=== PATIENT | female | born 1950 | race Caucasian/White ===

== ENCOUNTER 2020-01-24 11:00 | Outpatient (CLI) | payer MEDICARE, SELFPAY ==
[2020-01-24 11:23] LABS: Basophils Absolute Auto 0.1 K/mm3 (0.0-0.1); Basophils Percent Auto 0.5 % (0.2-1.2); Eosinophils Absolute Auto 0.5 K/mm3 (0-0.3); Eosinophils Percent Auto 3.5 % (0-4.4); Hematocrit 47.1 % (37.0-47.0); Hemoglobin 15.6 g/dL (12.0-15.0); Immature Granulocyte Absolute 0.03 K/mm3 (0.00-0.031); Immature Granulocyte Percent A 0.2 % (0-0.5); Lymphocytes Absolute Auto 6.32 K/mm3 (0.9-3.2); Lymphocytes Percent Auto 47.4 % (18.3-44.2); Mean Corpuscular HGB Conc 33.1 g/dl (32-36); Mean Corpuscular Hemoglobin 32.7 pg (26-34); Mean Corpuscular Volume 98.7 fl (80-100); Mean Platelet Volume 11.3 fl (7.4-10.4); Monocytes Absolute Auto 0.7 K/mm3 (0.1-0.6); Monocytes Percent Auto 5.5 % (2.6-8.5); Neutrophils Absolute Auto 5.7 K/mm3 (1.3-6.7); Neutrophils Percent Auto 42.9 % (45.5-73.1); Platelet Count Result 228 k/mm3 (150-375); Red Blood Count 4.77 M/mm3 (4.2-5.4); Red Cell Distribution Width 14.4 % (11.5-14.5); White Blood Count 13.3 K/mm3 (4.5-10.0)
[2020-01-24 11:31] LABS: Hemoglobin A1C 6.4 % (<5.7)
[2020-01-24 11:36] LABS: Blood Urea Nitrogen 30 mg/dL (7-17); Calcium 9.4 mg/dL (8.4-10.2); Carbon Dioxide 24 mmol/L (22-30); Chloride 107 mmol/L (98-107); Estimated Glomerular Filt Rate > 60; Glucose 134 mg/dL (65-105); Potassium 5.1 mmol/L (3.4-5.0); Sodium 137 mmol/L (137-145)
[2020-01-24 11:47] LABS: Creatinine Urine 126.1 mg/dL
[2020-01-24 12:34] LABS: MALB Creatinine Ratio 252.3 mg/g (0-30); Microalbumin Urine Random 318.1 mg/L (0-16.7)
== END 2020-01-24 11:01 | disposition home or self-care (01) ==
PROVIDERS: PCP Internal Medicine; Visit Provider Nurse Practitioner
DX: E11.9 Type 2 diabetes mellitus without complications (principal)
CPT/HCPCS: 36415; 80048; 82043; 83036; 85025

== ENCOUNTER 2020-04-24 13:25 | Outpatient (CLI) | payer MEDICARE, SELFPAY ==
[2020-04-24 14:14] LABS: Basophils Percent Auto 0.4 % (0.2-1.2); Eosinophils Absolute Auto 0.4 K/mm3 (0-0.3); Eosinophils Percent Auto 3.5 % (0-4.4); Hematocrit 44.2 % (37.0-47.0); Hemoglobin 14.4 g/dL (12.0-15.0); Immature Granulocyte Absolute 0.04 K/mm3 (0.00-0.031); Immature Granulocyte Percent A 0.4 % (0-0.5); Lymphocytes Percent Auto 47.5 % (18.3-44.2); Mean Corpuscular HGB Conc 32.6 g/dl (32-36); Mean Corpuscular Hemoglobin 32.6 pg (26-34); Mean Platelet Volume 11.4 fl (7.4-10.4); Monocytes Absolute Auto 0.6 K/mm3 (0.1-0.6); Monocytes Percent Auto 5.4 % (2.6-8.5); Neutrophils Absolute Auto 4.6 K/mm3 (1.3-6.7); Neutrophils Percent Auto 42.8 % (45.5-73.1); Platelet Count Result 210 k/mm3 (150-375); Red Blood Count 4.42 M/mm3 (4.2-5.4); Red Cell Distribution Width 14.3 % (11.5-14.5); White Blood Count 10.7 K/mm3 (4.5-10.0)
[2020-04-24 14:24] LABS: Hemoglobin A1C 5.9 % (<5.7)
[2020-04-24 14:26] LABS: Anion Gap 5 mmol/L (8-16); Blood Urea Nitrogen 24 mg/dL (7-17); Calcium 9.5 mg/dL (8.4-10.2); Carbon Dioxide 24 mmol/L (22-30); Chloride 109 mmol/L (98-107); Estimated Glomerular Filt Rate > 60; Glucose 101 mg/dL (65-105); Potassium 4.3 mmol/L (3.4-5.0); Sodium 138 mmol/L (137-145)
== END 2020-04-24 13:26 | disposition home or self-care (01) ==
LOC: ANHLAB 13:29
PROVIDERS: PCP Internal Medicine; Visit Provider Nurse Practitioner
DX: E11.9 Type 2 diabetes mellitus without complications (principal)
CPT/HCPCS: 36415; 80048; 83036; 85025

== ENCOUNTER 2020-05-10 15:22 | Outpatient (CLI) | payer MEDICARE, SELFPAY ==
--- NOTE | ~2020-05-10 | CT_ITS ---
EXAMINATION: CT chest w con EXAM DATE: 05/10/2020 15:55 INDICATION: Solitary pulmonary nodule. TECHNIQUE: Spiral CT of the chest following intravenous injection of 75 mL Omnipaque 350. Axial, cor onal and sagittal images were reviewed. Coronal maximum intensity pixel images of chest reviewed. T he dose-length product (DLP) for this examination was 372.62 mGy-cm. The exposure was tailored accor ding to patient size (auto mA exposure control), and iterative reconstruction (ASIR) was used as jarrett tional dose reduction technique. There is no prior study for comparison. FINDINGS: Triangular-shaped 5 mm right upper lobe nodule, shape and appearance most consistent with postinfectious residua. Several other regions of predominantly linear basilar opacity consistent with scarring. Right 8th rib fracture posterolaterally with nonunion. Mild emphysema. There are no pleura l or pericardial effusions. Tracheobronchial tree is patent. There is no mediastinal, hilar or ax illary lymphadenopathy. There is no pneumothorax. Heart normal in size. There is mild coronary arterial calcification, arterial sclerosis. There are cholecystectomy clips. There is thoracic spon dylosis without osteoblastic or osteolytic lesions identified. IMPRESSION: 1. Scattered opacities likely postinfectious residua. Consider one-year follow-up low-dose chest CT. 2. Mild emphysema. Reviewed, dictated and finalized at location B. IMPRESSION: 1. Scattered opacities likely postinfectious residua. Consider one-year follow -up low-dose chest CT. 2. Mild emphysema.
== END 2020-05-10 15:23 | disposition home or self-care (01) ==
PROVIDERS: PCP Internal Medicine; Visit Provider Nurse Practitioner
DX: R91.1 Solitary pulmonary nodule (principal); J43.9 Emphysema, unspecified
CPT/HCPCS: 71260; Q9967

== ENCOUNTER 2020-08-29 11:52 | Outpatient (CLI) | payer MEDICARE, SELFPAY ==
[2020-08-29 12:25] LABS: Cholesterol 137 mg/dL (0-200); HDL Direct 39 mg/dL; Triglycerides 172 mg/dL (<150)
[2020-08-29 12:36] LABS: LDL Cholesterol Direct 70 mg/dL
[2020-08-29 12:57] LABS: Hemoglobin A1C 5.9 % (<5.7)
== END 2020-08-29 11:53 | disposition home or self-care (01) ==
LOC: ANHLAB 11:55
PROVIDERS: PCP Internal Medicine; Visit Provider Nurse Practitioner
DX: E11.9 Type 2 diabetes mellitus without complications (principal)
CPT/HCPCS: 36415; 80061; 83036

== ENCOUNTER 2020-11-10 11:22 | Outpatient (CLI) | payer MEDICARE, SELFPAY ==
--- NOTE | ~2020-11-10 | XR_ITS ---
EXAMINATION: XR knee LT min 4V DATE: 11/10/2020 11:44 INDICATION: Left knee pain. TECHNIQUE: 4 views of left knee were obtained. COMPARISON: None. FINDINGS: Bone alignment is normal. No fracture. There is mild tricompartmental osteoarthritis. There is a small knee joint effusion. IMPRESSION: 1. Mild left knee osteoarthritis. 2. Small left knee joint effusion. Reviewed, dictated and finalized at location A.
== END 2020-11-10 11:23 | disposition home or self-care (01) ==
PROVIDERS: PCP Internal Medicine; Visit Provider Nurse Practitioner
DX: M25.562 Pain in left knee (principal); M17.12 Unilateral primary osteoarthritis, left knee; M25.462 Effusion, left knee
CPT/HCPCS: 73564

== ENCOUNTER 2020-12-06 14:43 | Outpatient (CLI) | payer MEDICARE, SELFPAY ==
--- NOTE | ~2020-12-06 | US_ITS ---
EXAMINATION: US venous doppler [facility] DATE: 12/06/2020 15:10 INDICATION: Left lower limb pain TECHNIQUE: Grayscale ultrasound images without and with compression and Doppler ultrasound images of the left lower extremity veins were obtained. COMPARISON: 11/03/2013 FINDINGS: The visualized portions of left common femoral vein, profunda (deep) femoral vein, femoral vein, popl iteal vein, peroneal veins, posterior tibial veins, gastrocnemius vein and greater saphenous vein out flow are patent. IMPRESSION: 1. No deep venous thrombosis in the left lower limb. Reviewed, dictated and finalized at location A.
== END 2020-12-06 14:44 | disposition home or self-care (01) ==
PROVIDERS: PCP Internal Medicine; Visit Provider Orthopaedic Surgery
DX: M79.662 Pain in left lower leg (principal); M79.89 Other specified soft tissue disorders
CPT/HCPCS: 93971

== ENCOUNTER 2021-03-03 11:48 | Outpatient (CLI) | payer MEDICARE, SELFPAY ==
[2021-03-03 12:08] LABS: Basophils Absolute Auto 0.1 K/mm3 (0.0-0.1); Basophils Percent Auto 0.5 % (0.2-1.2); Eosinophils Absolute Auto 0.4 K/mm3 (0-0.3); Eosinophils Percent Auto 3.8 % (0-4.4); Hematocrit 42.1 % (37.0-47.0); Hemoglobin 13.8 g/dL (12.0-15.0); Immature Granulocyte Absolute 0.03 K/mm3 (0.00-0.031); Immature Granulocyte Percent A 0.3 % (0-0.5); Lymphocytes Absolute Auto 4.88 K/mm3 (0.9-3.2); Lymphocytes Percent Auto 45.7 % (18.3-44.2); Mean Corpuscular HGB Conc 32.8 g/dl (32-36); Mean Corpuscular Hemoglobin 32.7 pg (26-34); Mean Corpuscular Volume 99.8 fl (80-100); Mean Platelet Volume 11.2 fl (7.4-10.4); Monocytes Absolute Auto 0.5 K/mm3 (0.1-0.6); Monocytes Percent Auto 4.7 % (2.6-8.5); Neutrophils Absolute Auto 4.8 K/mm3 (1.3-6.7); Platelet Count Result 206 k/mm3 (150-375); Red Blood Count 4.22 M/mm3 (4.2-5.4); Red Cell Distribution Width 14.2 % (11.5-14.5); White Blood Count 10.7 K/mm3 (4.5-10.0)
[2021-03-03 12:16] LABS: Alanine Aminotransferase 14 U/L (4-35); Albumin Level 3.9 g/dL (3.5-5.1); Alkaline Phosphatase 81 U/L (38-126); Anion Gap 7 mmol/L (8-16); Aspartate Amino Transferase 19 U/L (14-36); Bilirubin,Total 0.5 mg/dL (0.2-1.3); Blood Urea Nitrogen 24 mg/dL (7-17); Calcium 9.3 mg/dL (8.4-10.2); Carbon Dioxide 26 mmol/L (22-30); Chloride 108 mmol/L (98-107); Estimated Glomerular Filt Rate 49; Glucose 118 mg/dL (65-110); Potassium 4.9 mmol/L (3.4-5.0); Sodium 141 mmol/L (137-145)
[2021-03-05 18:28] LABS: Hemoglobin A1C 6.5 % (<5.7)
== END 2021-03-03 11:49 | disposition home or self-care (01) ==
PROVIDERS: PCP Internal Medicine; Visit Provider Nurse Practitioner
DX: E11.9 Type 2 diabetes mellitus without complications (principal)
CPT/HCPCS: 36415; 80053; 83036; 85025

== ENCOUNTER 2021-06-02 13:20 | Outpatient (CLI) | payer MEDICARE, SELFPAY ==
[2021-06-02 14:01] LABS: Anion Gap 5 mmol/L (8-16); Blood Urea Nitrogen 29 mg/dL (7-17); Calcium 9.2 mg/dL (8.4-10.2); Carbon Dioxide 27 mmol/L (22-30); Chloride 106 mmol/L (98-107); Estimated Glomerular Filt Rate > 60; Glucose 106 mg/dL (65-110); Potassium 4.7 mmol/L (3.4-5.0); Sodium 138 mmol/L (137-145)
[2021-06-02 14:08] LABS: Creatinine Urine 81.3 mg/dL
[2021-06-02 16:06] LABS: MALB Creatinine Ratio 981.1 mg/g (0-30); Microalbumin Urine Random 797.6 mg/L (0-16.7)
[2021-06-02 20:25] LABS: Hemoglobin A1C 6.3 % (<5.7)
== END 2021-06-02 13:21 | disposition home or self-care (01) ==
LOC: ANHLAB 13:24
PROVIDERS: PCP Internal Medicine; Visit Provider Nurse Practitioner
DX: E11.9 Type 2 diabetes mellitus without complications (principal)
CPT/HCPCS: 36415; 80048; 82043; 82607; 83036

== ENCOUNTER 2021-10-08 10:40 | Outpatient (CLI) | payer MEDICARE, SELFPAY ==
[2021-10-08 11:09] LABS: Basophils Absolute Auto 0.1 K/mm3 (0.0-0.1); Basophils Percent Auto 0.5 % (0.2-1.2); Eosinophils Absolute Auto 0.4 K/mm3 (0-0.3); Eosinophils Percent Auto 3.8 % (0-4.4); Hematocrit 48.5 % (37.0-47.0); Hemoglobin 15.4 g/dL (12.0-15.0); Immature Granulocyte Absolute 0.02 K/mm3 (0.00-0.031); Immature Granulocyte Percent A 0.2 % (0-0.5); Lymphocytes Absolute Auto 4.78 K/mm3 (0.9-3.2); Lymphocytes Percent Auto 51.8 % (18.3-44.2); Mean Corpuscular HGB Conc 31.8 g/dl (32-36); Mean Corpuscular Hemoglobin 32.6 pg (26-34); Mean Corpuscular Volume 102.5 fl (80-100); Mean Platelet Volume 11.3 fl (7.4-10.4); Monocytes Absolute Auto 0.5 K/mm3 (0.1-0.6); Monocytes Percent Auto 5.9 % (2.6-8.5); Neutrophils Absolute Auto 3.5 K/mm3 (1.3-6.7); Neutrophils Percent Auto 37.8 % (45.5-73.1); Platelet Count Result 183 k/mm3 (150-375); Red Blood Count 4.73 M/mm3 (4.2-5.4); Red Cell Distribution Width 14.4 % (11.5-14.5); White Blood Count 9.2 K/mm3 (4.5-10.0)
[2021-10-08 11:20] LABS: Creatinine Urine 15.7 mg/dL
[2021-10-08 11:22] LABS: Hemoglobin A1C 6.4 % (<5.7)
[2021-10-08 11:24] LABS: Alanine Aminotransferase 14 U/L (4-35); Albumin Level 4.2 g/dL (3.5-5.1); Alkaline Phosphatase 92 U/L (38-126); Anion Gap 6 mmol/L (8-16); Aspartate Amino Transferase 21 U/L (14-36); Bilirubin,Total 0.4 mg/dL (0.2-1.3); Blood Urea Nitrogen 30 mg/dL (7-17); Calcium 9.2 mg/dL (8.4-10.2); Carbon Dioxide 26 mmol/L (22-30); Chloride 109 mmol/L (98-107); Estimated Glomerular Filt Rate 55; Glucose 152 mg/dL (65-110); Potassium 4.3 mmol/L (3.4-5.0); Sodium 141 mmol/L (137-145)
[2021-10-08 11:40] LABS: Microalbumin Urine Random 457.7 mg/L (0-16.7)
== END 2021-10-08 10:41 | disposition home or self-care (01) ==
LOC: ANHLAB 10:42
PROVIDERS: PCP Internal Medicine; Visit Provider Clinical Nurse Specialist
DX: E11.9 Type 2 diabetes mellitus without complications (principal)
CPT/HCPCS: 36415; 80053; 82043; 83036; 85025

== ENCOUNTER 2022-01-07 11:56 | Outpatient (CLI) | payer MEDICARE, SELFPAY ==
[2022-01-07 13:41] LABS: Anion Gap 2 mmol/L (8-16); Blood Urea Nitrogen 25 mg/dL (7-17); Calcium 8.6 mg/dL (8.4-10.2); Carbon Dioxide 29 mmol/L (22-30); Chloride 108 mmol/L (98-107); Estimated Glomerular Filt Rate 55; Glucose 129 mg/dL (65-110); Hemoglobin A1C 6.2 % (<5.7); Potassium 4.1 mmol/L (3.4-5.0); Sodium 139 mmol/L (137-145)
== END 2022-01-07 11:57 | disposition home or self-care (01) ==
LOC: ANHLAB 11:59
PROVIDERS: PCP Internal Medicine; Visit Provider Nurse Practitioner
DX: E11.9 Type 2 diabetes mellitus without complications (principal)
CPT/HCPCS: 36415; 80048; 83036

== ENCOUNTER 2022-01-16 13:33 | Outpatient (CLI) | payer MEDICARE, SELFPAY ==
[2022-01-16 14:21] LABS: Alanine Aminotransferase 18 U/L (6-35); Alkaline Phosphatase 76 U/L (38-126); Anion Gap 2 mmol/L (8-16); Aspartate Amino Transferase 21 U/L (14-36); Bilirubin,Total 0.4 mg/dL (0.2-1.3); Blood Urea Nitrogen 25 mg/dL (7-17); Calcium 8.7 mg/dL (8.4-10.2); Carbon Dioxide 28 mmol/L (22-30); Chloride 107 mmol/L (98-107); Cholesterol 139 mg/dL (0-200); Estimated Glomerular Filt Rate 55; Glucose 148 mg/dL (65-110); HDL Direct 46 mg/dL; Potassium 4.4 mmol/L (3.4-5.0); Sodium 137 mmol/L (137-145); Triglycerides 79 mg/dL (<150)
[2022-01-16 14:32] LABS: LDL Cholesterol Direct 65 mg/dL
== END 2022-01-16 13:34 | disposition home or self-care (01) ==
PROVIDERS: PCP Internal Medicine; Visit Provider Internal Medicine Cardiovascular Disease
DX: I25.10 Atherosclerotic heart disease of native coronary artery without angina pectoris (principal)
CPT/HCPCS: 36415; 80053; 80061

== ENCOUNTER 2022-01-25 11:51 | Outpatient (CLI) | payer MEDICARE, SELFPAY ==
[2022-01-25 12:20] LABS: Cholesterol 154 mg/dL (0-200); HDL Direct 55 mg/dL; Triglycerides 79 mg/dL (<150)
[2022-01-25 12:31] LABS: LDL Cholesterol Direct 69 mg/dL
== END 2022-01-25 11:52 | disposition home or self-care (01) ==
LOC: ANHLAB 11:52
PROVIDERS: PCP Internal Medicine; Visit Provider Internal Medicine Cardiovascular Disease
DX: E78.2 Mixed hyperlipidemia (principal)
CPT/HCPCS: 36415; 80061

== ENCOUNTER 2022-02-25 10:29 | Outpatient (CLI) | payer MEDICARE, SELFPAY ==
[2022-02-25 11:08] LABS: Appearance Urine Clear (Clear); Bilirubin Urine Negative (Negative); Blood Urine Trace-lysed (Negative); Color Urine Yellow (Yellow); Glucose Urine UA Negative (Negative); Ketones Urine Negative (Negative); Leukocyte Esterase Ur Negative LEU/UL (Negative); Nitrate Urine Negative (Negative); Protein Urine 2+ mg/dL (Negative); Urobilinogen Urine 0.2 mg/dL (<2.0); pH Urine 6.5 (5.0-9.0)
[2022-02-25 11:11] LABS: Anion Gap 6 mmol/L (8-16); Blood Urea Nitrogen 26 mg/dL (7-17); Calcium 8.4 mg/dL (8.4-10.2); Carbon Dioxide 28 mmol/L (22-30); Chloride 104 mmol/L (98-107); Estimated Glomerular Filt Rate > 60; Glucose 213 mg/dL (65-110); Potassium 4.5 mmol/L (3.4-5.0); Sodium 138 mmol/L (137-145)
[2022-02-25 11:13] LABS: Mucus Urine Rare /lpf; RBC Urine 0-2 /hpf (0-2); Squamous Epithelial Cell Urine Rare /hpf (Few)
[2022-02-25 11:20] LABS: Add Urine Microscopic? YES
[2022-02-25 11:34] LABS: Creatinine Urine 36.2 mg/dL
[2022-02-25 11:55] LABS: MALB Creatinine Ratio 1107.7 mg/g (0-30)
[2022-02-27 20:51] LABS: Albumin 3.3 g/dL (3.8-4.8); Alpha 1 Globulin 0.3 g/dL (0.2-0.3); Alpha 2 Globulin 0.9 g/dL (0.5-0.9); Beta 1 Globulin 0.4 g/dL (0.4-0.6); Gamma Globulin 0.8 g/dL (0.8-1.7)
== END 2022-02-25 10:30 | disposition home or self-care (01) ==
PROVIDERS: PCP Internal Medicine; Visit Provider Internal Medicine Nephrology
DX: R80.9 Proteinuria, unspecified (principal)
CPT/HCPCS: 36415; 80048; 81001; 82043; 84155; 84165; 86334

== ENCOUNTER 2022-07-11 11:24 | Outpatient (CLI) | payer MEDICARE, SELFPAY ==
[2022-07-11 11:49] LABS: Basophils Absolute Auto 0.1 K/mm3 (0.0-0.1); Basophils Percent Auto 0.5 % (0.2-1.2); Eosinophils Absolute Auto 0.4 K/mm3 (0-0.3); Eosinophils Percent Auto 4.4 % (0-4.4); Hematocrit 52.4 % (37.0-47.0); Hemoglobin 16.9 g/dL (12.0-15.0); Immature Granulocyte Absolute 0.02 K/mm3 (0.00-0.031); Immature Granulocyte Percent A 0.2 % (0-0.5); Lymphocytes Absolute Auto 4.14 K/mm3 (0.9-3.2); Lymphocytes Percent Auto 44.7 % (18.3-44.2); Mean Corpuscular HGB Conc 32.3 g/dl (32-36); Mean Corpuscular Hemoglobin 33.3 pg (26-34); Mean Corpuscular Volume 103.1 fl (80-100); Monocytes Absolute Auto 0.6 K/mm3 (0.1-0.6); Neutrophils Absolute Auto 4.1 K/mm3 (1.3-6.7); Neutrophils Percent Auto 44.2 % (45.5-73.1); Platelet Count Result 173 k/mm3 (150-375); Red Blood Count 5.08 M/mm3 (4.2-5.4); Red Cell Distribution Width 14.2 % (11.5-14.5); White Blood Count 9.3 K/mm3 (4.5-10.0)
[2022-07-11 12:01] LABS: Alanine Aminotransferase 19 U/L (6-35); Albumin Level 4.2 g/dL (3.5-5.1); Alkaline Phosphatase 102 U/L (38-126); Anion Gap 4 mmol/L (8-16); Aspartate Amino Transferase 22 U/L (14-36); Bilirubin,Total 0.7 mg/dL (0.2-1.3); Blood Urea Nitrogen 27 mg/dL (7-17); Calcium 8.8 mg/dL (8.4-10.2); Carbon Dioxide 28 mmol/L (22-30); Chloride 107 mmol/L (98-107); Cholesterol 144 mg/dL (0-200); Estimated Glomerular Filt Rate 54; Glucose 141 mg/dL (65-110); HDL Direct 51 mg/dL; Potassium 4.7 mmol/L (3.4-5.0); Sodium 139 mmol/L (137-145); Triglycerides 132 mg/dL (<150)
[2022-07-11 12:11] LABS: LDL Cholesterol Direct 63 mg/dL
[2022-07-11 13:07] LABS: Folic Acid 19.5 ng/mL (2.76->20)
[2022-07-11 13:10] LABS: Hemoglobin A1C 6.9 % (<5.7)
[2022-07-11 14:01] LABS: MALB Creatinine Ratio 1298.2 mg/g (0-30); Microalbumin Urine Random 571.2 mg/L (0-16.7)
[2022-07-11 14:03] LABS: Vitamin D 25 Hydroxy < 12.8 ng/mL
== END 2022-07-11 11:25 | disposition home or self-care (01) ==
PROVIDERS: PCP Internal Medicine; Visit Provider Clinical Nurse Specialist
DX: E55.9 Vitamin D deficiency, unspecified (principal); E03.9 Hypothyroidism, unspecified; E11.9 Type 2 diabetes mellitus without complications; I10 Essential (primary) hypertension
CPT/HCPCS: 36415; 80053; 80061; 82043; 82306; 82607; 82746; 83036; 84443; 85025

== ENCOUNTER 2022-08-26 13:52 | Outpatient (CLI) | payer MEDICARE, SELFPAY ==
--- NOTE | ~2022-08-26 | CT_ITS ---
EXAMINATION: CT lung screening DATE: 08/26/2022 14:13 INDICATION: Lung cancer screening TECHNIQUE: Computed tomography (CT) of the chest was performed without intravenous contrast. Addition al 3D reconstructions utilizing coronal maximum intensity projection (MIP) were performed. Automated exposure control and iterative reconstruction technique were employed. The dose-length product was 18 0.71 mGy-cm. COMPARISON: 05/10/2020 FINDINGS: Mild emphysema. There are couple calcified nodules in the lingula left-sided band of atelectasis as w ell as in the right lower lobe. Unchanged flat lenticular nodule along the right minor fissure which measures 9 x 3 mm on sagittal imaging most consistent with an intrafissural lymph node. No new or enl arging pulmonary nodules, pneumonia, pulmonary edema or pleural effusion. Arch size is normal. Athero sclerotic coronary artery calcifications. Aortic valve calcification. No pericardial effusion. Normal caliber of the thoracic aorta and great vessels arising from the arch with scattered atherosclerotic calcifications. No pathologically enlarged thoracic lymphadenopathy. Cholecystectomy clips at the ga llbladder fossa. Severe thoracolumbar spondylosis. Chronic nonunited right posterolateral eighth rib fracture. IMPRESSION: 1. Lung-RADS category 2: Benign appearance or behavior. Continue annual screening with noncontrast lo w-dose chest CT in 12 months. 2. Mild emphysema. Reviewed, dictated and finalized at location B. IGURATION MANAGEMENT SPECIALIST IMPRESSION: 1. Lung-RADS category 2: Benign appearance or behavior. Continue annual screeni ng with noncontrast low-dose chest CT in 12 months. 2. Mild emphysema.
== END 2022-08-26 13:53 | disposition home or self-care (01) ==
PROVIDERS: PCP Internal Medicine; Visit Provider Clinical Nurse Specialist
DX: Z12.11 Encounter for screening for malignant neoplasm of colon (principal); J43.9 Emphysema, unspecified; F17.210 Nicotine dependence, cigarettes, uncomplicated
CPT/HCPCS: 71271

== ENCOUNTER 2022-09-19 11:31 | Outpatient (CLI) | payer MEDICARE, SELFPAY ==
[2022-09-19 12:37] LABS: Anion Gap 4 mmol/L (8-16); Blood Urea Nitrogen 24 mg/dL (7-17); Calcium 8.7 mg/dL (8.4-10.2); Carbon Dioxide 28 mmol/L (22-30); Chloride 105 mmol/L (98-107); Estimated Glomerular Filt Rate 49; Glucose 132 mg/dL (65-110); Potassium 4.5 mmol/L (3.4-5.0); Sodium 137 mmol/L (137-145)
== END 2022-09-19 11:32 | disposition home or self-care (01) ==
PROVIDERS: PCP Internal Medicine; Visit Provider Internal Medicine Nephrology
DX: R80.9 Proteinuria, unspecified (principal)
CPT/HCPCS: 36415; 80048

== ENCOUNTER 2022-10-31 10:44 | Outpatient (CLI) | payer MEDICARE, SELFPAY ==
[2022-10-31 12:08] LABS: Hemoglobin A1C 6.8 % (<5.7)
== END 2022-10-31 10:45 | disposition home or self-care (01) ==
LOC: ANHLAB 10:47
PROVIDERS: PCP Internal Medicine; Visit Provider Clinical Nurse Specialist
DX: E11.9 Type 2 diabetes mellitus without complications (principal)
CPT/HCPCS: 36415; 83036

== ENCOUNTER 2022-12-02 11:42 | Emergency (ER) | payer MEDICARE, SELFPAY ==
--- NOTE | ~2022-12-02 | CT_ITS ---
Non-contrast CT scan of the Abdomen and Pelvis Clinical indication: Right flank pain Technique: 2.5 mm axial scans were obtained through the abdomen and pelvis without intravenous or or al contrast. Dose reduction technique was used on this scan by utilizing automated exposure control a nd iterative reconstruction technique. The dose-length product (DLP) was 1127.65 mGy-cm. COMPARISON: 07/31/2007 Findings: Images through the lung bases reveal minimal bibasilar atelectatic versus interstitial tristian nges. There is no evidence of renal or ureteral calculi. The kidneys and the ureters are nondilated. The liver, spleen, pancreas, and adrenals appear normal. Cholecystectomy clips are present. There are atherosclerotic calcifications of the aorta. There is no evidence of bowel obstruction. There are 2 ventral hernias, both inferior to the umbilicu s, both containing small bowel loops. No bowel wall thickening or obstruction evident. Images through the pelvis were performed. There is no evidence of ascites or lymphadenopathy. Urinary bladder unremarkable. No adnexal mass seen. No ascites. Impression: 2 separate ventral hernias, both inferior to the umbilicus, both containing small bowel loops. No bow el wall thickening or obstruction. Reviewed, dictated and finalized at location . Impression: 2 separate ventral hernias, both inferior to the umbilicus, both containing sma ll bowel loops. No bowel wall thickening or obstruction.
[2022-12-02 12:15] VITALS: BP 175/65; PULSE 54; RESP 20; TEMP 36.4; O2SAT 95
[2022-12-02] MEDS: ONDANSETRON HCL ODT 4 MG TABLET PO (12:45)
[2022-12-02] MEDS: HYDROcodone/acetaminophen (*CRX) 5-325 MG TABLET 1 TAB PO (12:45)
[2022-12-02] MEDS: LIDOCAINE 5% PATCH 1 PATCH TRANSDERM (12:46)
[2022-12-02 12:58] LABS: Basophils Percent Auto 0.4 % (0.2-1.2); Eosinophils Absolute Auto 0.4 K/mm3 (0-0.3); Eosinophils Percent Auto 4.1 % (0-4.4); Hematocrit 52.3 % (37.0-47.0); Hemoglobin 17.2 g/dL (12.0-15.0); Immature Granulocyte Absolute 0.03 K/mm3 (0.00-0.031); Immature Granulocyte Percent A 0.3 % (0-0.5); Lymphocytes Absolute Auto 4.39 K/mm3 (0.9-3.2); Lymphocytes Percent Auto 42.2 % (18.3-44.2); Mean Corpuscular HGB Conc 32.9 g/dl (32-36); Mean Corpuscular Hemoglobin 33.5 pg (26-34); Mean Corpuscular Volume 101.8 fl (80-100); Mean Platelet Volume 11.1 fl (7.4-10.4); Monocytes Absolute Auto 0.6 K/mm3 (0.1-0.6); Monocytes Percent Auto 5.4 % (2.6-8.5); Neutrophils Percent Auto 47.6 % (45.5-73.1); Platelet Count Result 158 k/mm3 (150-375); Red Blood Count 5.14 M/mm3 (4.2-5.4); Red Cell Distribution Width 14.4 % (11.5-14.5); White Blood Count 10.4 K/mm3 (4.5-10.0)
--- NOTE | 2022-12-02 13:04 | ED.BACK ---
HPI - Back Pain/Injury General Chief Complaint: Back Pain/Injury Stated Complaint: right back pain Time Seen by Provider: 12/02/22 12:25 Source: patient and RN notes reviewed Mode of arrival: ambulatory Limitations: no limitations History of Present Illness HPI Narrative: THis is a 72 year old female with history of hypertension who presents for evaluation of right lower back pain. Patient states she has been having right lower back pain for 1 week. Her pain is constant and it has been worsening. Her pain is located right lower back and radiates down her right leg. She denies any leg weakness, numbness or tingling. Her pain is worse with movement and walking. She denies abdominal pain,fever, nausea, vomiting or urinary symptoms. She reports history of back problems and bulging disc. She has taken tylenol for her pain, and her last dose was this morning. Related Data Home Medications Medication Instructions Recorded Confirmed aspirin 81 mg tablet,delayed 81 mg PO DAILY 07/29/19 08/21/22 release (Adult Low Dose Aspirin) Allergies Allergy/AdvReac Type Severity Reaction Status Date / Time naproxen AdvReac Itching Verified 12/02/22 12:19 Review of Systems Constitutional: Constitutional: Denies weakness Cardiovascular: Cardiovascular: Denies syncope, Denies rapid heart rate, Denies irregular heart rhythm, Denies leg edema and Denies dyspnea Respiratory: Respiratory: Denies chest congestion, Denies hemoptysis, Denies excessive phlegm production and Denies dyspnea Gastrointestinal: Gastrointestinal: Denies abdominal pain, Denies hematochezia, Denies diarrhea and Denies vomiting Genitourinary: Genitourinary: Denies hematuria and Denies dysuria Musculoskeletal: Musculoskeletal: Reports back pain, Denies joint swelling, Denies loss of height and Denies muscle weakness Neurologic: Denies syncope, Denies focal weakness and Denies weakness PMFSH Past Medical History Medical History Allergies Bradycardia Bulging disc CAD (coronary artery disease) Chicken pox Cholecystectomy planned Complications of gastric bypass surgery 1994 COPD (chronic obstructive pulmonary disease) Eczema Fluid in knee Gout Heart disease Hemoglobin A1c less than 7.0% 08/29/20 A1c 5.9 Hernia Hyperkalemia Hyperlipidemia Hypertension Hypothyroidism Joint effusion of knee Left knee pain Leukocytosis Migraine Myocardial infarction Osteoarthritis Osteoarthritis of left knee Pulmonary nodule Screening for breast cancer Sleep apnea Type 2 diabetes mellitus Urine test positive for microalbuminuria Family History Family History Mother Family history of renal failure Diabetes mellitus Hypertension Sibling Heart disease Diabetes mellitus Father Diabetes mellitus Hypertension Other Family history of coronary artery disease Family history of obesity Social History Social History Smoking status: Former smoker Tobacco type: cigarettes Smoking end date: 08/04/17 Alcohol intake: never Lack of Transportation: No Lack of Food: Sometimes True Current Housing: I Have Housing Concerned About Future Housing: No Difficulty Paying Gas/Electric Bills: No Difficulty Paying for Meds: No Currently Unemployed: No Education: Grade School Difficulty w/ Childcare or Family Care: No Gender identity (if verbalized by the patient): Female Exam Const: General: alert Nutritional Appearance: well nourished Orientation/consciousness: patient oriented x3 Other: patient appears to be in pain from her back pain HENMT: Head: normal to inspection Eyes: EOM: EOMs intact bilaterally Chest: Chest palpation & inspection: normal inspection of the chest Resp: Effort & Inspection: normal respiratory effort Auscultation: clear to auscultation yarely
[2022-12-02 13:09] LABS: Alanine Aminotransferase 22 U/L (6-35); Albumin Level 4.4 g/dL (3.5-5.1); Alkaline Phosphatase 80 U/L (38-126); Anion Gap 4 mmol/L (8-16); Aspartate Amino Transferase 25 U/L (14-36); Bilirubin,Total 0.8 mg/dL (0.2-1.3); Blood Urea Nitrogen 45 mg/dL (7-17); Calcium 9.4 mg/dL (8.4-10.2); Carbon Dioxide 26 mmol/L (22-30); Chloride 105 mmol/L (98-107); Estimated CRCL calculation 36 ml/min; Estimated Glomerular Filt Rate 40; Glucose 147 mg/dL (65-110); Potassium 4.7 mmol/L (3.4-5.0); Sodium 135 mmol/L (137-145)
[2022-12-02 13:11] LABS: Appearance Urine Clear (Clear); Bacteria Urine None Seen /hpf; Bilirubin Urine Negative (Negative); Blood Urine Trace (Negative); Color Urine Yellow (Yellow); Glucose Urine UA 3+ mg/dL (Negative); Ketones Urine Negative (Negative); Leukocyte Esterase Ur Negative LEU/UL (Negative); Nitrate Urine Negative (Negative); Non Pathogenic Casts 0-2; Protein Urine 2+ mg/dL (Negative); RBC Urine 0-2 /hpf (0-2); Specific Grav Ur 1.016 (1.001-1.035); Squamous Epithelial Cell Urine Occasional /hpf (Few); Urobilinogen Urine 0.2 mg/dL (<2.0); WBC Urine 0-5 /hpf
[2022-12-02 13:34] LABS: Add Urine Microscopic? YES
== END 2022-12-02 16:14 | disposition home or self-care (01) ==
PROVIDERS: Emergency Medicine; Emergency Provider General Practice; PCP Internal Medicine
DX: M54.16 Radiculopathy, lumbar region (principal); M54.41 Lumbago with sciatica, right side; I25.10 Atherosclerotic heart disease of native coronary artery without angina pectoris; J44.9 Chronic obstructive pulmonary disease, unspecified; I10 Essential (primary) hypertension; E11.9 Type 2 diabetes mellitus without complications; E78.5 Hyperlipidemia, unspecified; E03.9 Hypothyroidism, unspecified; I25.2 Old myocardial infarction; M17.12 Unilateral primary osteoarthritis, left knee; G47.30 Sleep apnea, unspecified; M10.9 Gout, unspecified; Z87.891 Personal history of nicotine dependence; Z79.82 Long term (current) use of aspirin; Z79.84 Long term (current) use of oral hypoglycemic drugs
CPT/HCPCS: 36415; 72131; 74176; 80053; 81001; 85025; 99284; A9270

== ENCOUNTER 2023-04-01 10:51 | Outpatient (CLI) | payer MEDICARE, SELFPAY ==
[2023-04-01 11:29] LABS: Appearance Urine Clear (Clear); Bacteria Urine None Seen /hpf; Bilirubin Urine Negative (Negative); Blood Urine Trace (Negative); Color Urine Yellow (Yellow); Glucose Urine UA 3+ mg/dL (Negative); Ketones Urine Negative (Negative); Leukocyte Esterase Ur Negative LEU/UL (Negative); Nitrate Urine Negative (Negative); Non Pathogenic Casts 0-2; Protein Urine 2+ mg/dL (Negative); RBC Urine 0-2 /hpf (0-2); Specific Grav Ur 1.013 (1.001-1.035); Squamous Epithelial Cell Urine None seen /hpf (Few); WBC Urine 0-5 /hpf; pH Urine 7.5 (5.0-9.0)
[2023-04-01 11:33] LABS: Anion Gap 5 mmol/L (8-16); Blood Urea Nitrogen 32 mg/dL (7-17); Calcium 8.7 mg/dL (8.4-10.2); Carbon Dioxide 30 mmol/L (22-30); Chloride 104 mmol/L (98-107); Cholesterol 149 mg/dL (0-200); Estimated Glomerular Filt Rate 32; Glucose 140 mg/dL (65-110); HDL Direct 42 mg/dL; Magnesium 2.2 mg/dL (1.6-2.3); Potassium 4.6 mmol/L (3.4-5.0); Sodium 139 mmol/L (137-145); Triglycerides 136 mg/dL (<150)
[2023-04-01 11:36] LABS: Add Urine Microscopic? YES
[2023-04-01 11:45] LABS: LDL Cholesterol Direct 78 mg/dL
[2023-04-02 08:26] LABS: Creatinine Urine 36.9 mg/dL
[2023-04-02 09:33] LABS: MALB Creatinine Ratio 1229.5 mg/g (0-30); Microalbumin Urine Random 453.7 mg/L (0-16.7)
== END 2023-04-01 10:52 | disposition home or self-care (01) ==
PROVIDERS: PCP Internal Medicine; Visit Provider Internal Medicine Nephrology
DX: E78.5 Hyperlipidemia, unspecified (principal)
CPT/HCPCS: 36415; 80048; 80061; 81001; 82043; 83735

== ENCOUNTER 2023-07-07 13:36 | Outpatient (CLI) | payer MEDICARE, SELFPAY ==
[2023-07-07 14:27] LABS: Basophils Absolute Auto 0.1 K/mm3 (0.0-0.1); Basophils Percent Auto 0.6 % (0.2-1.2); Eosinophils Absolute Auto 0.6 K/mm3 (0-0.3); Eosinophils Percent Auto 6.1 % (0-4.4); Hematocrit 49.9 % (37.0-47.0); Hemoglobin 15.7 g/dL (12.0-15.0); Immature Granulocyte Absolute 0.03 K/mm3 (0.00-0.031); Immature Granulocyte Percent A 0.3 % (0-0.5); Lymphocytes Absolute Auto 4.88 K/mm3 (0.9-3.2); Lymphocytes Percent Auto 49.1 % (18.3-44.2); Mean Corpuscular HGB Conc 31.5 g/dl (32-36); Mean Corpuscular Hemoglobin 32.6 pg (26-34); Mean Corpuscular Volume 103.5 fl (80-100); Mean Platelet Volume 11.5 fl (7.4-10.4); Monocytes Absolute Auto 0.6 K/mm3 (0.1-0.6); Monocytes Percent Auto 6.1 % (2.6-8.5); Neutrophils Absolute Auto 3.7 K/mm3 (1.3-6.7); Neutrophils Percent Auto 37.8 % (45.5-73.1); Platelet Count Result 161 k/mm3 (150-375); Red Blood Count 4.82 M/mm3 (4.2-5.4); Red Cell Distribution Width 14.6 % (11.5-14.5); White Blood Count 9.9 K/mm3 (4.5-10.0)
[2023-07-07 14:39] LABS: Appearance Urine Clear (Clear); Bacteria Urine None Seen /hpf; Bilirubin Urine Negative (Negative); Blood Urine Trace (Negative); Color Urine Yellow (Yellow); Glucose Urine UA 3+ mg/dL (Negative); Ketones Urine Negative (Negative); Leukocyte Esterase Ur Negative LEU/UL (NEGATIVE); Nitrate Urine Negative (Negative); Non Pathogenic Casts 0-2; Protein Urine 2+ mg/dL (Negative); RBC Urine 0-2 /hpf (0-2); Specific Grav Ur 1.013 (1.001-1.035); Squamous Epithelial Cell Urine None seen /hpf (Few); WBC Urine 0-5 /hpf (0-3)
[2023-07-07 14:39] LABS: Anion Gap 5 mmol/L (8-16); Blood Urea Nitrogen 41 mg/dL (7-17); Calcium 8.9 mg/dL (8.4-10.2); Carbon Dioxide 29 mmol/L (22-30); Chloride 107 mmol/L (98-107); Estimated Glomerular Filt Rate 34; Glucose 111 mg/dL (65-110); Phosphorus 3.9 mg/dL (2.5-4.5); Potassium 4.4 mmol/L (3.4-5.0); Sodium 141 mmol/L (137-145)
[2023-07-07 14:46] LABS: Add Urine Microscopic? YES
[2023-07-07 14:51] LABS: Parathyroid Intact 120.5 pg/mL (7.5-53.5)
[2023-07-07 15:04] LABS: Creatinine Urine 37.2 mg/dL
[2023-07-07 16:16] LABS: MALB Creatinine Ratio 1865.9 mg/g (0-30); Microalbumin Urine Random 694.1 mg/L (0-16.7)
== END 2023-07-07 13:37 | disposition home or self-care (01) ==
PROVIDERS: PCP Internal Medicine; Visit Provider Internal Medicine Nephrology
DX: N18.32 Chronic kidney disease, stage 3b (principal)
CPT/HCPCS: 36415; 80069; 81001; 82043; 83970; 85025

== ENCOUNTER 2023-09-10 14:28 | Outpatient (CLI) | payer MEDICARE, SELFPAY ==
--- NOTE | ~2023-09-10 | CT_ITS ---
EXAMINATION:CT lung screening DATE: 09/10/2023 14:50 INDICATION: Personal history of nicotine dependence. Smoker who quit 1 year ago with 55 pack year his tory. TECHNIQUE: Computed tomography (CT) of the chest was performed without intravenous contrast. Automate d exposure control and iterative reconstruction technique were employed. The dose-length product (DLP ) was 189.20 mGy-cm. COMPARISON: Chest CT 08/26/2022 FINDINGS: There is mild emphysema. There is a stable 6 mm nodule at minor fissure. There is a 3 mm no dule in left lower lobe. A calcified left lung nodule and calcified left hilar and mediastinal lymph nodes are consistent with old granulomatous disease. There is mild atelectasis bilaterally. No pleura l effusion. There is calcified atherosclerosis of the aorta and many of the other arteries. The heart size is normal. There are coronary artery calcifications. No pericardial effusion. There are changes of cholecystectomy. There are old right rib fractures. There is severe cervical, thoracic, and lumba r spondylosis. There is mild chronic anterior wedging of multiple vertebral bodies. IMPRESSION: 1. Lung-RADS category 2: Benign appearance or behavior. Continue annual screening with noncontrast lo w-dose chest CT in 12 months. Reviewed, dictated and finalized at location E. ET BOTTOM MACHINE OPERATOR IMPRESSION: 1. Lung-RADS category 2: Benign appearance or behavior. Continue annual screeni ng with noncontrast low-dose chest CT in 12 months.
== END 2023-09-10 14:29 | disposition home or self-care (01) ==
PROVIDERS: PCP Internal Medicine; Visit Provider Clinical Nurse Specialist
DX: Z12.2 Encounter for screening for malignant neoplasm of respiratory organs (principal); Z87.891 Personal history of nicotine dependence
CPT/HCPCS: 71271

== ENCOUNTER 2023-11-10 12:30 | Outpatient (CLI) | payer MEDICARE, SELFPAY ==
[2023-11-10 13:05] LABS: Basophils Percent Auto 0.5 % (0.2-1.2); Eosinophils Absolute Auto 0.3 K/mm3 (0-0.3); Eosinophils Percent Auto 3.9 % (0-4.4); Hematocrit 48.5 % (37.0-47.0); Hemoglobin 15.6 g/dL (12.0-15.0); Immature Granulocyte Absolute 0.02 K/mm3 (0.00-0.031); Immature Granulocyte Percent A 0.2 % (0-0.5); Lymphocytes Absolute Auto 3.64 K/mm3 (0.9-3.2); Mean Corpuscular HGB Conc 32.2 g/dl (32-36); Mean Corpuscular Hemoglobin 32.3 pg (26-34); Mean Corpuscular Volume 100.4 fl (80-100); Monocytes Absolute Auto 0.5 K/mm3 (0.1-0.6); Monocytes Percent Auto 5.8 % (2.6-8.5); Neutrophils Absolute Auto 3.8 K/mm3 (1.3-6.7); Neutrophils Percent Auto 45.6 % (45.5-73.1); Platelet Count Result 142 k/mm3 (150-375); Red Blood Count 4.83 M/mm3 (4.2-5.4); Red Cell Distribution Width 14.5 % (11.5-14.5); White Blood Count 8.3 K/mm3 (4.5-10.0)
[2023-11-10 13:10] LABS: Appearance Urine Clear (Clear); Bacteria Urine None Seen /hpf; Bilirubin Urine Negative (Negative); Blood Urine Trace (Negative); Color Urine Yellow (Yellow); Glucose Urine UA 2+ mg/dL (Negative); Ketones Urine Negative (Negative); Leukocyte Esterase Ur Negative LEU/UL (Negative); Nitrate Urine Negative (Negative); Non Pathogenic Casts 0-2; Protein Urine 3+ mg/dL (Negative); RBC Urine 0-2 /hpf (0-2); Squamous Epithelial Cell Urine Occasional /hpf (Few); Urobilinogen Urine 0.2 mg/dL (<2.0); pH Urine 7.5 (5.0-9.0)
[2023-11-10 13:14] LABS: Add Urine Microscopic? YES
[2023-11-10 13:18] LABS: Anion Gap 4 mmol/L (4-12); Blood Urea Nitrogen 38 mg/dL (7-17); Carbon Dioxide 28 mmol/L (22-30); Chloride 108 mmol/L (98-107); Estimated Glomerular Filt Rate 29; Glucose 126 mg/dL (65-110); Phosphorus 3.7 mg/dL (2.5-4.5); Potassium 4.5 mmol/L (3.4-5.0); Sodium 140 mmol/L (137-145)
[2023-11-10 13:28] LABS: Parathyroid Intact 128.2 pg/mL (7.5-53.5)
[2023-11-10 15:25] LABS: Microalbumin Urine Random 955.5 mg/L (0-16.7)
== END 2023-11-10 12:31 | disposition home or self-care (01) ==
LOC: ANHLAB 12:32
PROVIDERS: PCP Internal Medicine; Visit Provider Nurse Practitioner Family
DX: N18.31 Chronic kidney disease, stage 3a (principal)
CPT/HCPCS: 36415; 80069; 81001; 82043; 83970; 85025

== ENCOUNTER 2023-11-13 15:22 | Emergency (ER) | payer MEDICARE, SELFPAY ==
--- NOTE | ~2023-11-13 | CT_ITS ---
EXAMINATION: CT BRAIN W/O DATE: 11/13/2023 21:01 INDICATION: Hypertension TECHNIQUE: Computed tomography (CT) of the head was performed without intravenous contrast. The dose- length product was 605.33 mGy-cm. Automated exposure control and iterative reconstruction technique w ere employed. COMPARISON: No prior studies for comparison. FINDINGS: Normal brain parenchymal volume for age. Normal marsh-white differentiation. No acute intrac ranial hemorrhage, infarction, mass or mass effect. There are scattered mild periventricular and subcortical white matter changes, most likely related to small vessel ischemic disease (microangiopathy). No ventriculomegaly or midline shift. Midline sagittal images demonstrate a normal corpus callosum, c raniovertebral junction and sella turcica. Basilar cisterns are patent. Paranasal sinuses and mastoids are pneumatized. No depressed skull fractures. IMPRESSION: 1. No acute intracranial abnormality. Reviewed, dictated and finalized at location A.
--- NOTE | ~2023-11-13 | XR_ITS ---
XR chest 2V 11/13/2023 16:28 Indication: Weakness and shortness of breath Procedure: PA and lateral views of the chest Comparison: CT dated 09/10/2023 Findings: Heart size normal. There is mild interstitial edema. Left basilar atelectasis. No significa nt effusion. No pneumothorax. No acute osseous abnormality. There are cholecystectomy clips. Moderate thoracic spondylosis with accentuated kyphosis at the thoracolumbar junction. Impression: 1: Mild interstitial edema. Atypical pneumonia less favored. Reviewed, dictated and finalized at location A. Impression: 1: Mild interstitial edema. Atypical pneumonia less favored.
[2023-11-13 15:47] VITALS: BP 248/55; PULSE 55; RESP 16; TEMP 37.1; O2SAT 92
--- NOTE | 2023-11-13 15:50 | ECG_ITS ---
SEE SCANNED COPY FOR CONFIRMED REPORT MTDD
[2023-11-13 16:15] LABS: Basophils Percent Auto 0.4 % (0.2-1.2); Eosinophils Absolute Auto 0.4 K/mm3 (0-0.3); Hematocrit 49.8 % (37.0-47.0); Hemoglobin 16.6 g/dL (12.0-15.0); Immature Granulocyte Absolute 0.03 K/mm3 (0.00-0.031); Immature Granulocyte Percent A 0.3 % (0-0.5); Lymphocytes Absolute Auto 3.62 K/mm3 (0.9-3.2); Mean Corpuscular HGB Conc 33.3 g/dl (32-36); Mean Corpuscular Hemoglobin 33.5 pg (26-34); Mean Corpuscular Volume 100.4 fl (80-100); Mean Platelet Volume 11.6 fl (7.4-10.4); Monocytes Absolute Auto 0.6 K/mm3 (0.1-0.6); Monocytes Percent Auto 6.2 % (2.6-8.5); Neutrophils Absolute Auto 5.3 K/mm3 (1.3-6.7); Neutrophils Percent Auto 53.1 % (45.5-73.1); Platelet Count Result 149 k/mm3 (150-375); Red Blood Count 4.96 M/mm3 (4.2-5.4); Red Cell Distribution Width 14.5 % (11.5-14.5); White Blood Count 10.1 K/mm3 (4.5-10.0)
[2023-11-13 16:27] LABS: Alanine Aminotransferase 15 U/L (6-35); Albumin Level 4.2 g/dL (3.5-5.1); Alkaline Phosphatase 92 U/L (38-126); Anion Gap 5 mmol/L (4-12); Aspartate Amino Transferase 28 U/L (14-36); Blood Urea Nitrogen 36 mg/dL (7-17); Calcium 9.3 mg/dL (8.4-10.2); Carbon Dioxide 25 mmol/L (22-30); Chloride 109 mmol/L (98-107); Estimated CRCL calculation 30 ml/min; Estimated Glomerular Filt Rate 34; Glucose 114 mg/dL (65-110); Potassium 4.5 mmol/L (3.4-5.0); Sodium 139 mmol/L (137-145)
[2023-11-13 19:40] VITALS: BP 219/59; PULSE 53; RESP 12; O2SAT 94
--- NOTE | 2023-11-13 19:52 | ED.GENADULT ---
HPI - General Adult General Chief complaint: Weakness Stated complaint: high bp Time Seen by Provider: 11/13/23 15:42 History of Present Illness HPI narrative: This is a 73-year-old female presents from her geological technical officer for elevated blood pressures patient was seen her geological technical officer on a routine visit. While there her blood pressure was around 220/90. ED neurologist called her heater furnace Dr. Castro device that she come to the ER for evaluation. Patient said that she had a headache earlier but is currently asymptomatic. Denies fever chills chest pain difficulty breathing nausea vomiting diarrhea or abdominal pain. Patient is on 5 different antihypertensive medications. She says her home blood pressure device broke and she has not been checking it lately. Related Data Home Medications Medication Instructions Recorded Confirmed aspirin 81 mg tablet,delayed 81 mg PO DAILY 07/29/19 10/06/23 release (Adult Low Dose Aspirin) Allergies Allergy/AdvReac Type Severity Reaction Status Date / Time naproxen AdvReac Itching Verified 10/06/23 09:58 [facility] Past Medical History Medical History Allergies Bradycardia Bulging disc CAD (coronary artery disease) Chicken pox Cholecystectomy planned Complications of gastric bypass surgery 1994 COPD (chronic obstructive pulmonary disease) Eczema Fluid in knee Gout Heart disease Hemoglobin A1c less than 7.0% 08/29/20 A1c 5.9 Hernia Hyperkalemia Hyperlipidemia Hypertension Hypothyroidism Joint effusion of knee Left knee pain Leukocytosis Migraine Myocardial infarction Osteoarthritis Osteoarthritis of left knee Pulmonary nodule Screening for breast cancer Sleep apnea Type 2 diabetes mellitus Urine test positive for microalbuminuria Family History Family History Mother Family history of renal failure Diabetes mellitus Hypertension Sibling Heart disease Diabetes mellitus Father Diabetes mellitus Hypertension Other Family history of coronary artery disease Family history of obesity Social History Social History (Updated 10/06/23 @ 10:06 by Hetal Gonzales CMA) Smoking status: Former smoker Tobacco type: cigarettes Smoking end date: 08/04/17 Alcohol intake: never Do You Feel Safe in your Home?: Yes Lack of Transportation: No Lack of Food: Sometimes True Current Housing: I Have Housing Concerned About Future Housing: No Difficulty Paying Gas/Electric Bills: No Difficulty Paying for Meds: No Currently Unemployed: No Education: Grade School Difficulty w/ Childcare or Family Care: No Gender identity (if verbalized by the patient): Female Exam Narrative: APPEARANCE: No apparent distress. Head: atraumatic. EYES: EOMI, NOSE: Atraumatic NECK: Trachea midline RESPIRATORY: No increased rate of breathing, CTAB CARDIOVASCULAR: RRR, no lower extremity edema ABDOMINAL: Non-distended, Soft non-tender MUSCULOSKELETAl: No obvious deformities NEURO: Alert. Cranial nerves 2-12 grossly intact. Sensation light touch, motor function cerebellar function intact for 4 extremities. Gait exam was normal. SKIN:: Warm, dry. Normal color PSYCHIATRIC: Normal affect Course Vital Signs Vital signs: Vital Signs Temperature 98.7 F 11/13/23 15:47 Pulse Rate 55 L 11/13/23 15:47 Respiratory Rate 16 11/13/23 15:47 Blood Pressure 248/55 H 11/13/23 15:47 Pulse Oximetry 92 11/13/23 15:47 Oxygen Delivery Room Air 11/13/23 15:47 Temperature 98.7 F 11/13/23 15:47 Pulse Rate 53 L 11/13/23 19:40 Respiratory Rate 12 11/13/23 19:40 Blood Pressure 219/59 H 11/13/23 19:40 Pulse Oximetry 94 11/13/23 19:40 Oxygen Delivery Room Air 11/13/23 19:40 Medical Decision Making MDM Narrative Medical decision making narrative: -Course: 73-year-old female sent in for elevated blood pressures. While
[2023-11-13] MEDS: hydroCHLOROthiazide 12.5 MG CAPSULE PO (21:01)
[2023-11-13 21:20] LABS: Appearance Urine Clear (Clear); Bacteria Urine None Seen /hpf; Bilirubin Urine Negative (Negative); Blood Urine Negative (Negative); Color Urine Yellow (Yellow); Glucose Urine UA 3+ mg/dL (Negative); Ketones Urine Negative (Negative); Leukocyte Esterase Ur Negative LEU/UL (Negative); Nitrate Urine Negative (Negative); Non Pathogenic Casts 0-2; Protein Urine 3+ mg/dL (Negative); RBC Urine 0-2 /hpf (0-2); Specific Grav Ur 1.015 (1.001-1.035); Squamous Epithelial Cell Urine None Seen /hpf (Few); WBC Urine 0-5 /hpf (0-3); pH Urine 6.5 (5.0-9.0)
[2023-11-13 21:33] LABS: Add Urine Microscopic? YES
[2023-11-13 22:17] VITALS: BP 196/71; PULSE 56; RESP 15; O2SAT 96
== END 2023-11-13 22:18 | disposition home or self-care (01) ==
PROVIDERS: Emergency Medicine; Emergency Provider Emergency Medicine; PCP Internal Medicine
DX: I25.10 Atherosclerotic heart disease of native coronary artery without angina pectoris (principal); I10 Essential (primary) hypertension; I25.2 Old myocardial infarction; E11.9 Type 2 diabetes mellitus without complications; E78.5 Hyperlipidemia, unspecified; J44.9 Chronic obstructive pulmonary disease, unspecified; G47.30 Sleep apnea, unspecified; M17.12 Unilateral primary osteoarthritis, left knee; M10.9 Gout, unspecified; Z98.84 Bariatric surgery status; Z87.891 Personal history of nicotine dependence; Z79.82 Long term (current) use of aspirin; Z79.84 Long term (current) use of oral hypoglycemic drugs; J81.1 Chronic pulmonary edema; R00.1 Bradycardia, unspecified; I45.10 Unspecified right bundle-branch block
CPT/HCPCS: 36415; 70450; 71046; 80053; 81001; 85025; 93005; 99284; A9270

== ENCOUNTER 2023-12-15 15:46 | Outpatient (CLI) | payer MEDICARE, SELFPAY ==
[2023-12-15 16:19] LABS: Basophils Percent Auto 0.4 % (0.2-1.2); Eosinophils Absolute Auto 0.4 K/mm3 (0-0.3); Eosinophils Percent Auto 4.3 % (0-4.4); Hematocrit 43.2 % (37.0-47.0); Hemoglobin 13.7 g/dL (12.0-15.0); Immature Granulocyte Absolute 0.03 K/mm3 (0.00-0.031); Immature Granulocyte Percent A 0.3 % (0-0.5); Immature Platelet Fraction Pct 7.7 % (0.9-11.2); Lymphocytes Absolute Auto 3.96 K/mm3 (0.9-3.2); Lymphocytes Percent Auto 39.2 % (18.3-44.2); Mean Corpuscular HGB Conc 31.7 g/dl (32-36); Mean Corpuscular Hemoglobin 32.7 pg (26-34); Mean Corpuscular Volume 103.1 fl (80-100); Mean Platelet Volume 11.9 fl (7.4-10.4); Monocytes Absolute Auto 0.8 K/mm3 (0.1-0.6); Monocytes Percent Auto 7.4 % (2.6-8.5); Neutrophils Absolute Auto 4.9 K/mm3 (1.3-6.7); Neutrophils Percent Auto 48.4 % (45.5-73.1); Platelet Count Result 144 k/mm3 (150-375); Red Blood Count 4.19 M/mm3 (4.2-5.4); Red Cell Distribution Width 14.6 % (11.5-14.5); White Blood Count 10.1 K/mm3 (4.5-10.0)
[2023-12-15 16:30] LABS: Alanine Aminotransferase 13 U/L (6-35); Albumin Level 3.7 g/dL (3.5-5.1); Alkaline Phosphatase 72 U/L (38-126); Anion Gap 8 mmol/L (4-12); Aspartate Amino Transferase 17 U/L (14-36); Bilirubin,Total 0.6 mg/dL (0.2-1.3); Blood Urea Nitrogen 44 mg/dL (7-17); Calcium 8.7 mg/dL (8.4-10.2); Carbon Dioxide 26 mmol/L (22-30); Chloride 105 mmol/L (98-107); Estimated Glomerular Filt Rate 24; Glucose 114 mg/dL (65-110); Potassium 4.4 mmol/L (3.4-5.0); Sodium 139 mmol/L (137-145)
[2023-12-15 16:33] LABS: Hemoglobin A1C 6.5 % (<5.7)
[2023-12-15 17:32] LABS: Free T4 Free Thyroxine 1.52 ng/mL (0.78-2.19); Vitamin D 25 Hydroxy 32.4 ng/mL
== END 2023-12-15 15:47 | disposition home or self-care (01) ==
PROVIDERS: PCP Internal Medicine; Visit Provider Clinical Nurse Specialist
DX: E03.9 Hypothyroidism, unspecified (principal); E11.9 Type 2 diabetes mellitus without complications; E55.9 Vitamin D deficiency, unspecified; I10 Essential (primary) hypertension; I25.10 Atherosclerotic heart disease of native coronary artery without angina pectoris; J44.9 Chronic obstructive pulmonary disease, unspecified; I21.9 Acute myocardial infarction, unspecified; G47.30 Sleep apnea, unspecified
CPT/HCPCS: 36415; 80053; 82306; 83036; 84439; 84443; 85025; 85055

== ENCOUNTER 2023-12-23 14:30 | Outpatient (CLI) | payer MEDICARE, SELFPAY ==
[2023-12-23 15:32] LABS: Basophils Absolute Auto 0.1 K/mm3 (0.0-0.1); Basophils Percent Auto 0.5 % (0.2-1.2); Eosinophils Absolute Auto 0.5 K/mm3 (0-0.3); Eosinophils Percent Auto 4.4 % (0-4.4); Hematocrit 42.4 % (37.0-47.0); Hemoglobin 13.8 g/dL (12.0-15.0); Immature Granulocyte Absolute 0.04 K/mm3 (0.00-0.031); Immature Granulocyte Percent A 0.4 % (0-0.5); Lymphocytes Absolute Auto 3.62 K/mm3 (0.9-3.2); Lymphocytes Percent Auto 35.2 % (18.3-44.2); Mean Corpuscular HGB Conc 32.5 g/dl (32-36); Mean Corpuscular Hemoglobin 32.8 pg (26-34); Mean Corpuscular Volume 100.7 fl (80-100); Mean Platelet Volume 11.6 fl (7.4-10.4); Monocytes Absolute Auto 0.7 K/mm3 (0.1-0.6); Monocytes Percent Auto 6.8 % (2.6-8.5); Neutrophils Absolute Auto 5.4 K/mm3 (1.3-6.7); Neutrophils Percent Auto 52.7 % (45.5-73.1); Platelet Count Result 198 k/mm3 (150-375); Red Blood Count 4.21 M/mm3 (4.2-5.4); Red Cell Distribution Width 14.6 % (11.5-14.5); White Blood Count 10.3 K/mm3 (4.5-10.0)
[2023-12-23 15:44] LABS: Calcium 8.9 mg/dL (8.4-10.2)
[2023-12-23 15:54] LABS: Parathyroid Intact 103.9 pg/mL (7.5-53.5)
== END 2023-12-23 14:31 | disposition home or self-care (01) ==
PROVIDERS: PCP Internal Medicine; Visit Provider Nurse Practitioner Family
DX: N18.31 Chronic kidney disease, stage 3a (principal)
CPT/HCPCS: 36415; 82310; 83970; 85025

== ENCOUNTER 2024-01-10 09:36 | Outpatient (CLI) | payer MEDICARE, SELFPAY ==
[2024-01-10 09:52] LABS: Basophils Absolute Auto 0.1 K/mm3 (0.0-0.1); Basophils Percent Auto 0.5 % (0.2-1.2); Eosinophils Absolute Auto 0.5 K/mm3 (0-0.3); Eosinophils Percent Auto 4.7 % (0-4.4); Hematocrit 46.2 % (37.0-47.0); Hemoglobin 14.8 g/dL (12.0-15.0); Immature Granulocyte Absolute 0.02 K/mm3 (0.00-0.031); Immature Granulocyte Percent A 0.2 % (0-0.5); Lymphocytes Absolute Auto 3.96 K/mm3 (0.9-3.2); Mean Corpuscular Hemoglobin 32.7 pg (26-34); Mean Corpuscular Volume 102.2 fl (80-100); Mean Platelet Volume 11.7 fl (7.4-10.4); Monocytes Absolute Auto 0.6 K/mm3 (0.1-0.6); Monocytes Percent Auto 5.8 % (2.6-8.5); Neutrophils Absolute Auto 4.8 K/mm3 (1.3-6.7); Neutrophils Percent Auto 48.8 % (45.5-73.1); Platelet Count Result 154 k/mm3 (150-375); Red Blood Count 4.52 M/mm3 (4.2-5.4); Red Cell Distribution Width 14.6 % (11.5-14.5); White Blood Count 9.9 K/mm3 (4.5-10.0)
[2024-01-10 10:03] LABS: Albumin Level 4.1 g/dL (3.5-5.1); Anion Gap 6 mmol/L (4-12); Blood Urea Nitrogen 41 mg/dL (7-17); Calcium 9.2 mg/dL (8.4-10.2); Carbon Dioxide 26 mmol/L (22-30); Chloride 107 mmol/L (98-107); Estimated Glomerular Filt Rate 32; Glucose 141 mg/dL (65-110); Phosphorus 4.1 mg/dL (2.5-4.5); Potassium 4.5 mmol/L (3.4-5.0); Sodium 139 mmol/L (137-145)
[2024-01-10 10:14] LABS: Parathyroid Intact 80.8 pg/mL (7.5-53.5)
== END 2024-01-10 09:37 | disposition home or self-care (01) ==
LOC: ANHLAB 09:39
PROVIDERS: PCP Internal Medicine; Visit Provider Nurse Practitioner Family
DX: N18.31 Chronic kidney disease, stage 3a (principal)
CPT/HCPCS: 36415; 80069; 83970; 85025

== ENCOUNTER 2024-05-04 11:38 | Outpatient (CLI) | payer MEDICARE, SELFPAY ==
[2024-05-04 12:45] LABS: Cholesterol 121 mg/dL (0-200); HDL Direct 44 mg/dL; Triglycerides 89 mg/dL (<150)
[2024-05-04 12:55] LABS: LDL Cholesterol Direct 50 mg/dL
== END 2024-05-04 11:39 | disposition home or self-care (01) ==
LOC: ANHLAB 11:41
PROVIDERS: PCP Internal Medicine; Visit Provider Internal Medicine Cardiovascular Disease
DX: E78.2 Mixed hyperlipidemia (principal)
CPT/HCPCS: 36415; 80061

== ENCOUNTER 2024-07-13 14:42 | Outpatient (CLI) | payer MEDICARE, SELFPAY ==
[2024-07-13 16:02] LABS: Basophils Percent Auto 0.5 % (0.2-1.2); Eosinophils Absolute Auto 0.5 K/mm3 (0-0.3); Eosinophils Percent Auto 5.5 % (0-4.4); Hematocrit 48.9 % (37.0-47.0); Hemoglobin 15.9 g/dL (12.0-15.0); Immature Granulocyte Absolute 0.04 K/mm3 (0.00-0.031); Immature Granulocyte Percent A 0.5 % (0-0.5); Mean Corpuscular HGB Conc 32.5 g/dl (32-36); Mean Corpuscular Hemoglobin 33.4 pg (26-34); Mean Corpuscular Volume 102.7 fl (80-100); Mean Platelet Volume 12.7 fl (7.4-10.4); Monocytes Absolute Auto 0.5 K/mm3 (0.1-0.6); Neutrophils Absolute Auto 6.2 K/mm3 (1.3-6.7); Neutrophils Percent Auto 76.5 % (45.5-73.1); Platelet Count Result 150 k/mm3 (150-375); Red Blood Count 4.76 M/mm3 (4.2-5.4); Red Cell Distribution Width 16.5 % (11.5-14.5); White Blood Count 8.2 K/mm3 (4.5-10.0)
[2024-07-13 16:13] LABS: Albumin Level 4.3 g/dL (3.5-5.1); Anion Gap 8 mmol/L (4-12); Blood Urea Nitrogen 31 mg/dL (7-17); Calcium 9.3 mg/dL (8.4-10.2); Carbon Dioxide 23 mmol/L (22-30); Chloride 108 mmol/L (98-107); Estimated Glomerular Filt Rate 29; Glucose 127 mg/dL (65-110); Phosphorus 3.5 mg/dL (2.5-4.5); Potassium 4.4 mmol/L (3.4-5.0); Sodium 139 mmol/L (137-145)
[2024-07-13 16:21] LABS: Creatinine Urine 86.7 mg/dL
[2024-07-13 16:28] LABS: Parathyroid Intact 65.6 pg/mL (14.5-75.2)
[2024-07-13 16:48] LABS: Add Urine Microscopic? YES; Appearance Urine Clear (Clear); Bacteria Urine None Seen /hpf; Bilirubin Urine Negative (Negative); Blood Urine 3+ (Negative); Color Urine Yellow (Yellow); Glucose Urine UA 3+ mg/dL (Negative); Ketones Urine Negative (Negative); Leukocyte Esterase Ur Negative LEU/UL (Negative); Need Manual Microscopic Reviewed; Nitrate Urine Negative (Negative); Protein Urine 3+ mg/dL (Negative); RBC Urine 21-50 /hpf (0-2); Specific Grav Ur 1.025 (1.001-1.035); Squamous Epithelial Cell Urine Occasional /hpf (Few); WBC Urine 21-50 /hpf (0-3)
[2024-07-13 17:39] LABS: Microalbumin Urine Random > 1140.0 mg/L (0-16.7)
[2024-07-13 17:40] LABS: MALB Creatinine Ratio > 1314.9 mg/g (0-30)
== END 2024-07-13 14:43 | disposition home or self-care (01) ==
PROVIDERS: PCP Internal Medicine; Visit Provider Nurse Practitioner Family
DX: N18.32 Chronic kidney disease, stage 3b (principal)
CPT/HCPCS: 36415; 80069; 81001; 82043; 83970; 85025

== ENCOUNTER 2024-09-13 13:59 | Outpatient (CLI) | payer MEDICARE, MEDICAID, SELFPAY ==
--- NOTE | ~2024-09-13 | CT_ITS ---
EXAMINATION:CT lung screening DATE: 09/13/2024 14:22 INDICATION: Personal history of nicotine dependence. Current smoker with 56 pack year history. TECHNIQUE: Computed tomography (CT) of the chest was performed without intravenous contrast. Automate d exposure control and iterative reconstruction technique were employed. The dose-length product (DLP ) was 177.57 mGy-cm. COMPARISON: Chest CT 09/10/2023 FINDINGS: There is mild emphysema. There is a 3 mm nodule in right upper lobe. There is a 7 mm nodule at minor fissure without change. Calcified pulmonary nodules and calcified hilar and mediastinal lym ph nodes are consistent with old granulomatous disease. There is mild atelectasis bilaterally. No ple ural effusion. Cardiomegaly is noted. There are coronary artery calcifications. No pericardial effusi on. There are changes of cholecystectomy. There is severe thoracic spondylosis. IMPRESSION: 1. Lung-RADS category 2: Benign appearance or behavior. Continue annual screening with noncontrast lo w-dose chest CT in 12 months. Reviewed, dictated and finalized at location A. TECHNICIAN IMPRESSION: 1. Lung-RADS category 2: Benign appearance or behavior. Continue annual screeni ng with noncontrast low-dose chest CT in 12 months.
--- NOTE | ~2024-09-13 | XR_ITS ---
Clinical Indication: Cough PA and lateral views of the chest: Comparison: 11/13/2023 Findings: There is central congestive change and mild bibasilar pulmonary edema. Minimal left pleural effusion present. Cardiomediastinal silhouette is within normal limits. Bones and soft tissues are unremarkable. Impression: Central congestive change and probable mild pulmonary edema. Minimal left pleural effusion. Reviewed, dictated and finalized at location . OR MARKETING ENGINEER Impression: Central congestive change and probable mild pulmonary edema. Minimal left pleural effusion.
--- OUTSIDE RECORDS SUMMARY | 2024-09-13 14:09 | XMS_ITS | Clinical Summary ---
Author Organization [facility] Address [address] [place] [address] Phone Care Team Providers Care Forestry Extension Specialist Name Role Phone Everett Birch DO Primary Care Provider [phone] Allergies Active Allergy Reactions Criticality Noted Date Comments Naproxen Itching 04/03/2022 Medications Medication Sig Dispensed Refills Start Date End Date Status aspirin (ST WEI) 81 MG EC tablet Take 81 mg by mouth 1 (one) time each day Active allopurinol (ZYLOPRIM) 300 MG tablet Take 300 mg by mouth 1 (one) time each day Active hydroCHLOROthiazide (HYDRODIURIL) 12.5 MG tablet Take 12.5 mg by mouth 1 (one) time each day Active fluticasone (FLONASE) 50 MCG/ACT nasal spray Administer 1 spray into each nostril 1 (one) time each day Shake gently. Before first use, prime pump. After use, clean tip and replace cap. Active amLODIPine (NORVASC) 10 MG tablet Take 10 mg by mouth 1 (one) time each day Active isosorbide mononitrate (IMDUR) 30 MG 24 hr tablet Take 30 mg by mouth 1 (one) time each day Active albuterol HFA (PROVENTIL HFA) 108 (90 Base) MCG/ACT inhaler Inhale 2 puffs every 6 (six) hours if needed Active atorvastatin (LIPITOR) 80 MG tablet Take 80 mg by mouth 1 (one) time each day Active levothyroxine sodium (TIROSINT) 100 MCG capsule Take 100 mcg by mouth 1 (one) time each day Active metFORMIN (GLUCOPHAGE) 1000 MG tablet Take 1,000 mg by mouth 1 (one) time each day Active venlafaxine (EFFEXOR) 75 MG tablet Take 75 mg by mouth 2 (two) times a day Active losartan (COZAAR) 100 MG tabletIndications:Pr oteinuria, not otherwise specified Take 1 tablet (100 mg total) by mouth 1 (one) time each day 90 tablet 3 09/25/2022 Active Dapagliflozin Propanediol (Farxiga) 10 MG tabletIndications:Di abetes mellitus with renal manifestations, type II or unspecified type, uncontrolled (CMS-HCC) Take 1 tablet by mouth 1 (one) time each day 90 tablet 3 02/12/2024 Active Active Problems Problem Noted Date Diagnosed Date Stage 3a chronic kidney disease 11/06/2023 Diabetes mellitus with renal manifestations, type II or unspecified type, uncontrolled 02/14/2022 Essential (primary) hypertension 02/14/2022 Proteinuria 02/14/2022 Resolved Problems Problem Noted Date Diagnosed Date Resolved Date Chronic obstructive pulmonary disease 02/14/2022 03/26/2022 Hyperlipidemia 02/14/2022 12/24/2023 Hypothyroidism 02/14/2022 03/26/2022 Obstructive sleep apnea 02/14/2022 0810/2021 Encounters Date Type Department Care Team Description 07/15/2024 3:20 PM LABOR REPRESENTATIVE Office Visit [facility] [address] [place] [address] Jennifer Chairez NP Stage 3b chronic kidney disease (CMS-HCC) (Primary Dx); Essential (primary) hypertension; Diabetes mellitus with renal manifestations, type II or unspecified type, uncontrolled (CMS-HCC); Proteinuria, not otherwise specified from Last 3 Months Social History Tobacco Use Types Packs/Day Years Used Date Smoking Tobacco: Former Cigarettes Q uit: 01/2022 Smokeless Tobacco: Never Tobacco Cessation:Counseling Given: Not Answered Sex and Gender Information Value Date Recorded Sex Assigned at Not on file Gender Identity Not on file Sexual Orientation Not on file Last Filed Vital Signs Vital Sign Reading Time Taken Comments Blood Pressure 197/71 07/15/2024 3:19 PM LABOR REPRESENTATIVE Pulse 51 07/15/2024 3:19 PM LABOR REPRESENTATIVE Temperature 36.7 C (98 F) 04/03/2022 2:32 PM CDT Respiratory Rate - - Oxygen Saturation 94% 04/03/2023 2:44 PM CDT Inhaled Oxygen Concentration - - Weight 84.8 kg (187 lb) 07/15/2024 3:19 PM LABOR REPRESENTATIVE Height 157.5 cm (5' 2 ) 07/15/2024 3:19 PM LABOR REPRESENTATIVE Body Mass Index 34.2 07/15/2024 3:19 PM LABOR REPRESENTATIVE Plan of Treatment Upcoming Encounters Date Type Department Care Team (Late st Contact Info) Description 11/11/2024 2:00 PM CDT Office Visit [facility] [address] [facility] [place] [address] Williams Hernández MD [address] [facility] [address] [place] [address] Health Maintenance Due Date Last Done Comments Diabetic Foot Exam 1959 Ophthalmology Exam 1960 Pneumococcal PPSV23/PCV13 65 + Years / High and Highest Risk (2 of 3 - PCV) 05/19/2018 05/19/2017 Influenza Vaccine (#1) 2024 05/19/2018 Care Teams Forestry Extension Specialist Relationship Specialty Start Date End Date Everett Birch DO [address] [place] [address] PCP - General Internal Medicine 10/15/21
[2024-09-13 15:01] LABS: Basophils Percent Auto 0.4 % (0.2-1.2); Eosinophils Absolute Auto 0.4 K/mm3 (0-0.3); Eosinophils Percent Auto 3.8 % (0-4.4); Hematocrit 48.6 % (37.0-47.0); Hemoglobin 15.8 g/dL (12.0-15.0); Immature Granulocyte Absolute 0.03 K/mm3 (0.00-0.031); Immature Granulocyte Percent A 0.3 % (0-0.5); Lymphocytes Absolute Auto 5.04 K/mm3 (0.9-3.2); Lymphocytes Percent Auto 47.3 % (18.3-44.2); Mean Corpuscular HGB Conc 32.5 g/dl (32-36); Mean Corpuscular Hemoglobin 33.3 pg (26-34); Mean Corpuscular Volume 102.5 fl (80-100); Mean Platelet Volume 11.9 fl (7.4-10.4); Monocytes Absolute Auto 0.6 K/mm3 (0.1-0.6); Monocytes Percent Auto 5.7 % (2.6-8.5); Neutrophils Absolute Auto 4.5 K/mm3 (1.3-6.7); Neutrophils Percent Auto 42.5 % (45.5-73.1); Platelet Count Result 159 k/mm3 (150-375); Red Blood Count 4.74 M/mm3 (4.2-5.4); Red Cell Distribution Width 15.1 % (11.5-14.5); White Blood Count 10.7 K/mm3 (4.5-10.0)
[2024-09-13 15:55] LABS: Alanine Aminotransferase 24 U/L (6-35); Albumin Level 4.1 g/dL (3.5-5.1); Alkaline Phosphatase 103 U/L (38-126); Anion Gap 11 mmol/L (4-12); Aspartate Amino Transferase 23 U/L (14-36); Bilirubin,Total 0.8 mg/dL (0.2-1.3); Blood Urea Nitrogen 32 mg/dL (7-17); Calcium 9.3 mg/dL (8.4-10.2); Carbon Dioxide 19 mmol/L (22-30); Chloride 107 mmol/L (98-107); Estimated Glomerular Filt Rate 40; Glucose 134 mg/dL (65-110); Potassium 4.4 mmol/L (3.4-5.0); Sodium 137 mmol/L (137-145)
[2024-09-13 16:17] LABS: Creatinine Urine 44.7 mg/dL
[2024-09-13 16:42] LABS: Hemoglobin A1C 6.6 % (<5.7)
[2024-09-13 18:53] LABS: MALB Creatinine Ratio 2550.3 mg/g (0-30); Microalbumin Urine Random > 1140.0 mg/L (0-16.7)
== END 2024-09-13 14:00 | disposition home or self-care (01) ==
LOC: ANHIMG 14:11
PROVIDERS: PCP Internal Medicine; Visit Provider Clinical Nurse Specialist
DX: Z12.2 Encounter for screening for malignant neoplasm of respiratory organs (principal); Z87.891 Personal history of nicotine dependence; J44.9 Chronic obstructive pulmonary disease, unspecified; I10 Essential (primary) hypertension; E11.9 Type 2 diabetes mellitus without complications; D72.829 Elevated white blood cell count, unspecified
CPT/HCPCS: 36415; 71046; 71271; 80053; 82043; 83036; 85025

== ENCOUNTER 2025-01-12 14:22 | Outpatient (CLI) | payer MEDICARE, MEDICAID, SELFPAY ==
[2025-01-12 14:58] LABS: Anion Gap 9 mmol/L (4-12); Blood Urea Nitrogen 33 mg/dL (7-17); Calcium 9.6 mg/dL (8.4-10.2); Carbon Dioxide 23 mmol/L (22-30); Chloride 108 mmol/L (98-107); Estimated Glomerular Filt Rate 35; Glucose 204 mg/dL (65-110); Sodium 140 mmol/L (137-145)
== END 2025-01-12 14:23 | disposition home or self-care (01) ==
LOC: ANHLAB 14:23
PROVIDERS: PCP Internal Medicine; Visit Provider Internal Medicine Cardiovascular Disease
DX: I10 Essential (primary) hypertension (principal)
CPT/HCPCS: 36415; 80048

== ENCOUNTER 2025-04-11 09:46 | Outpatient (CLI) | payer MEDICARE, SELFPAY ==
--- OUTSIDE RECORDS SUMMARY | 2025-04-11 10:02 | XMS_ITS | Clinical Summary ---
Author Organization [facility] Address [address] [place] [address] Phone Care Team Providers Care Waitstaff Name Role Phone Everett Birch DO Primary Care Provider [phone] Allergies Active Allergy Reactions Criticality Noted Date Comments Naproxen Itching 04/03/2022 Medications aspirin (ST WEI) 81 MG EC tablet Take 81 mg by mouth 1 (one) time each day Active allopurinol (ZYLOPRIM) 300 MG tablet Take 300 mg by mouth 1 (one) time each day Active hydroCHLOROthiazi de (HYDRODIURIL) 12.5 MG tablet Take 12.5 mg [...] a day Active losartan (COZAAR) 100 MG tabletIndications :Proteinuria, not otherwise specified Take 1 tablet (100 mg total) by mouth 1 (one) time each day 90 tablet 3 3 Active Farxiga 10 MG tabletIndications :Diabetes mellitus with renal manifestations, type II or unspecified type, uncontrolled [place] TAKE 1 TABLET BY MOUTH EVERY DAY 30 tablet 3 5 Active Active Problems Problem Noted Date Diagnosed Date Stage 3a chronic kidney disease 11/06/2023 Diabetes mellitus with renal manifestations, type II or unspecified type, uncontrolled 02/14/2022 Essential (primary) hypertension 02/14/2022 Proteinuria 02/14/2022 Resolved Problems Problem Noted Date Diagnosed Date Resolved Date Chronic obstructive pulmonary disease 02/14/2022 03/26/2022 Hyperlipidemia 02/14/2022 12/24/2023 Hypothyroidism 02/14/2022 03/26/2022 Obstructive sleep apnea 02/14/202203/05 Encounters Date Type Department Care Team Description 02/11/2025 Refill [facility] [address] [place], [place] [id number] Jennifer Chairez, COMMISSIONS COORDINATOR Diabetes mellitus with renal manifestations, type II or unspecified type, uncontrolled [place] from Last 3 Months Social History Tobacco Use Types Packs/Day Years Used Date Smoking Tobacco: Former Cigarettes Q uit: 01/2022 Smokeless Tobacco: Never Tobacco Cessation:Counseling Given: Not Answered Comments Unknown Sex and Gender Information Value Date Recorded Sex Assigned at Not on file Legal Sex Female 10:45 AM MDT Gender Identity Not on file Sexual Orientation Not on file Last Filed Vital Signs Vital Sign Reading Time Taken Comments Blood Pressure 197/71 07/15/2024 3:19 PM FIRMWARE DEVELOPER Pulse 51 07/15/2024 3:19 PM FIRMWARE DEVELOPER Temperature 36.7 C (98 F) 04/03/2022 2:32 PM CDT Respiratory Rate - - Oxygen Saturation 94% 04/03/2023 2:44 PM CDT Inhaled Oxygen Concentration - - Weight 84.8 kg (187 lb) 07/15/2024 3:19 PM FIRMWARE DEVELOPER Height 157.5 cm (5' 2) 07/15/2024 3:19 PM FIRMWARE DEVELOPER Body Mass Index 34.2 07/15/2024 3:19 PM FIRMWARE DEVELOPER Plan of Treatment Upcoming Encounters Date Type Department Care Team (Late st Contact Info) Description 04/14/2025 2:00 PM CDT Office Visit [facility] [address] [facility], [address] [place] [address] Jennifer Chairez, COMMISSIONS COORDINATOR [address] [facility] [address] [place] [address] Health Maintenance Due Date Last Done Comments Diabetic Foot Exam 1959 Ophthalmology Exam 1960 Pneumococcal PPSV23/PCV13 65 + Years / High and Highest Risk (2 of 3 - PCV) 05/19/2018 05/19/2017 Influenza Vaccine (#1) 2025 05/19/2018 Insurance [employer] Care Teams Waitstaff Relationship Specialty Start Date End Date Everett Birch DO [address] [place] [address] PCP - General Internal Medicine 10/15/21
[2025-04-11 10:15] LABS: Hematocrit 44.6 % (37.0-47.0); Hemoglobin 14.5 g/dL (12.0-15.0); Immature Granulocyte Percent A 0.2 % (0-0.5); Lymphocytes Absolute Auto 4.50 K/mm3 (0.9-3.2); Mean Corpuscular HGB Conc 32.5 g/dl (32-36); Mean Corpuscular Hemoglobin 32.6 pg (26-34); Mean Corpuscular Volume 100.2 fl (80-100); Nucleated Red Blood Cells Absolute Auto 0.000 K/mm3 (0.0-0.012); Nucleated Red Blood Cells Perc 0.0 % (0.0-0.2); Platelet Count Result 176 k/mm3 (150-375); Red Blood Count 4.45 M/mm3 (4.2-5.4); White Blood Count 9.3 K/mm3 (4.5-10.0)
[2025-04-11 10:29] LABS: Albumin Level 4.1 g/dL (3.5-5.1); Anion Gap 10 mmol/L (4-12); Blood Urea Nitrogen 34 mg/dL (7-17); Calcium 9.2 mg/dL (8.4-10.2); Carbon Dioxide 21 mmol/L (22-30); Chloride 108 mmol/L (98-107); Estimated Glomerular Filt Rate 32; Glucose 150 mg/dL (65-110); Potassium 4.4 mmol/L (3.4-5.0); Sodium 139 mmol/L (137-145)
[2025-04-11 10:38] LABS: Parathyroid Intact 69.3 pg/mL (14.5-75.2)
== END 2025-04-11 09:47 | disposition home or self-care (01) ==
LOC: ANHLAB 09:48
PROVIDERS: PCP Internal Medicine; Visit Provider Nurse Practitioner Family
DX: N18.32 Chronic kidney disease, stage 3b (principal)
CPT/HCPCS: 36415; 80069; 83970; 85025

== ENCOUNTER 2025-06-19 16:16 | Inpatient (IN) | payer MEDICARE, SELFPAY ==
--- NOTE | ~2025-06-19 | XR_ITS ---
EXAMINATION: XR chest 1V portable DATE: 06/21/2025 08:35 INDICATION: CHF TECHNIQUE: A single frontal view of the chest was obtained. COMPARISON: June 19 chest x-ray FINDINGS: Heart and hilar vascular shadows are prominent. Probably mild perihilar pulmonary edema present. No marisela pulmonary edema or large effusion. Vascular markings are increased. Surgical clips right upper quadrant. IMPRESSION: 1. Findings consistent with vascular congestion and mild persisting pulmonary edema and/or pneumonia. Reviewed, dictated and finalized at location A. LAB TECHNICIAN IMPRESSION: 1. Findings consistent with vascular congestion and mild persisting pulmonary e michelle and/or pneumonia.
--- NOTE | ~2025-06-19 | CT_ITS ---
EXAMINATION:CT diagnostic chest wo con DATE: 06/21/2025 14:28 INDICATION: Hypoxia TECHNIQUE: Computed tomography (CT) of the chest was performed without intravenous contrast. The dose-length product (DLP) was 552.42 mGy-cm. COMPARISON: July 13, 2025 FINDINGS: Bibasilar consolidations with atelectatic changes have developed right worse than left. Trace bilateral pleural effusions. And the mainstem bronchi, streaky mucoid appearing changes are present. Tracheal air column as trace dependent secretions but no obvious mass. Heart and great vessels appear stable. Extensive coronary artery calcification. 10 mm nodule anterior right midlung image 57 series 4 is stable. Borderline pathologic sized mediastinal lymph nodes not clearly changed. Diffuse degenerative changes in the bones. IMPRESSION: 1. Bibasilar consolidations likely associated with aspiration versus community- acquired pneumonia. Mucoid appearing changes in the bronchi endotracheal air column support aspiration. Findings should be followed radiographically until clear. 2. Other chronic appearing findings. Reviewed, dictated and finalized at location A. R BLOCK MECHANIC IMPRESSION: 1. Bibasilar consolidations likely associated with aspiration versus community- acquired pneumonia. Mucoid appearing changes in the bronchi endotracheal air co lumn support aspiration. Findings should be followed radiographically until ray ar. 2. Other chronic appearing findings.
--- NOTE | ~2025-06-19 | US_ITS ---
EXAMINATION: US retroperitoneal duplex ltd DATE: 06/25/2025 14:49 ESCALATION ENGINEER INDICATION: Accelerated hypertension. TECHNIQUE: Sonographic imaging of the kidneys was performed with a 3.5 MHz transducer. Retroperitoneal duplex sonogram of the renal arteries also obtained. FINDINGS: No focal flow abnormalities are seen in the renal arteries on color Doppler. The peak systolic velocity ranges of the right and left renal arteries and aorta are 68 cm per second, 92 cm per second, and 141 cm per second, respectively. The velocities and renal to aortic ratios are within normal limits. Renal echotexture is grossly unremarkable bilaterally. Right kidney measures 9.5 cm. Left kidney measures 10 cm. IMPRESSION: 1. No Doppler evidence of renal artery stenosis. Reviewed, dictated and finalized at location O. LATION ENGINEER
--- NOTE | ~2025-06-19 | XR_ITS ---
EXAMINATION: XR chest 1V portable DATE: 06/22/2025 06:29 INDICATION: Vascular congestion TECHNIQUE: A single frontal view of the chest was obtained. COMPARISON: June 21 chest x-ray FINDINGS: Interstitial and/or bronchovascular markings appear stable to mildly improved. No marisela pulmonary edema or large effusion. Mildly enlarged heart shadow. No pneumothorax or subphrenic free air seen. IMPRESSION: 1. Stable to mildly improved appearance of interstitial/vascular markings. Reviewed, dictated and finalized at location A. ER TENDER
--- NOTE | ~2025-06-19 | XR_ITS ---
EXAMINATION: XR chest 2V, 06/30/2025 6:15 STONEWORKING SANDER HISTORY: pneumonia COMPARISON: No comparisons available. Technique: 2 views obtained. Findings: Moderate pulmonary venous congestion. Small basilar infiltrates. Small effusions noted. No pneumothorax. Moderate cardiomegaly. Mediastinal and hilar contours are within normal limits. Bony thorax no acute abnormality. Impression: CHF. Superimposed pneumonia is suspected. The findings appear progressed compared to the previous exam Reviewed, dictated and finalized at location P. EWORKING SANDER Impression: CHF. Superimposed pneumonia is suspected. The findings appear progressed compar ed to the previous exam
--- NOTE | ~2025-06-19 | XR_ITS ---
EXAMINATION: XR chest 2V, 06/19/2025 16:50 DEWAXER HISTORY: sob started this morning COMPARISON: No comparisons available. Technique: 2 views obtained. Findings: Moderate pulmonary venous congestion. No pneumothorax. Moderate cardiomegaly. Mediastinal and hilar contours are within normal limits. Bony thorax no acute abnormality. Impression: CHF Reviewed, dictated and finalized at location P. XER Impression: CHF
--- NOTE | ~2025-06-19 | NM_ITS ---
EXAM/PROCEDURE: NM lung vent and perfusion HISTORY: SOB, CP, afib rvr COMPARISON: Portable chest x-ray same day. TECHNIQUE: Standard technique for VQ scan performed. RADIOISOTOPE: 22.9 mCi xenon used for the ventilatory portion of today's exam. Perfusion scan was performed using 5.5 mCi technetium 99m microaggregated albumin. FINDINGS: Prominent area of photopenia corresponding to the heart shadow consistent with cardiomegaly. Obscuration of the right lung base on recent radiograph, corresponds to possible segmental size area of mismatch in the right lung base, although findings are complicated due to radiographic findings. IMPRESSION: No compelling or large segmental size areas of mismatch, and with right base findings on today's chest x-ray, the perfusion mismatch in the right base is of uncertain significance. Per PIOPED criteria, this is an indeterminate INTERMEDIATE probability for pulmonary embolus. Reviewed, dictated and finalized at location A. STANT CLINICAL DIRECTOR IMPRESSION: No compelling or large segmental size areas of mismatch, and with r ight base findings on today's chest x-ray, the perfusion mismatch in the right base is of uncertain significance. Per PIOPED criteria, this is an indeterminat e INTERMEDIATE probability for pulmonary embolus.
--- NOTE | ~2025-06-19 | US_ITS ---
EXAMINATION: US renal BI DATE: 06/21/2025 13:54 INDICATION: Acute on chronic renal disease TECHNIQUE: Multiple ultrasound grayscale images of the kidneys were obtained. COMPARISON: None. FINDINGS: The right kidney measures 9.9 x 4.7 x 4.6 cm. The left kidney measures 9.9 x 4.5 x 4.3 cm. The kidneys demonstrate normal echogenicity. There is no hydronephrosis in either kidney. No stones identified. The bladder is normal with bilateral ureteral jets visualized on color Doppler. IMPRESSION: 1. Normal kidneys without hydronephrosis. Reviewed, dictated and finalized at location A. T OF WAY MANAGER
--- NOTE | ~2025-06-19 | XR_ITS ---
EXAMINATION: XR chest 2V, 06/26/2025 11:20 CRUSHER FEEDER HISTORY: sob COMPARISON: No comparisons available. Technique: 2 views obtained. Findings: The lungs are clear, no effusion. No pneumothorax. Moderate cardiomegaly. Mediastinal and hilar contours are within normal limits. Bony thorax no acute abnormality. Impression: CHF. Superimposed probable pneumonia. The findings are progressed compared to the previous study. Reviewed, dictated and finalized at location P. HER FEEDER Impression: CHF. Superimposed probable pneumonia. The findings are progressed compared to grace bocanegra previous study.
--- NOTE | ~2025-06-19 | US_ITS ---
EXAMINATION: US pelvic complete w TV, 06/25/2025 8:35 TYPESETTING MACHINE TENDER HISTORY: abnormal vaginal bleeding Comparison: None Technique: Santiago-scale and color Doppler images were obtained. Findings: Uterus: Within the uterine fundus there is a calcified probable fibroid 2 x 1.9 cm. . The endometrium demonstrates a heterogeneous appearance with a focus of abnormal echogenicity and increased flow within the fundal uterine cavity measuring 3.2 x 2.2 x 2.5 cm consistent for endometrial neoplasm. Right Ovary:Right ovary not identified. Left Ovary: Left ovary 2.2 x 1.4 x 2 cm, no adnexal mass, normal flow Free Fluid: No free fluid. Impression: Findings are concerning for endometrial neoplasm. Reviewed, dictated and finalized at location P. SETTING MACHINE TENDER Impression: Findings are concerning for endometrial neoplasm.
[2025-06-19 16:14] VITALS: BP 162/73; PULSE 157; RESP 26; TEMP 36.4; O2SAT 94
--- NOTE | 2025-06-19 16:20 | ECG_ITS ---
Test Date: 2025-06-19 16:19:55 Measurements Intervals [place] Rate: 155 P: 0 [place]: 0 QRS: 228 QRSD: 132 T: 10 QT: 307 QTc: 493 Interpretive Statements SUPRAVENTRICULAR TACHYCARDIA VERSUS ATRIAL FLUTTER WITH RVR RIGHT BUNDLE BRANCH BLOCK POSSIBLE ANTERIOR MYOCARDIAL INFARCTION , OF INDETERMINATE AGE Electronically Signed On 06-20-2025 00:10:57 [employer] AIRCRA[employer] TECHNICIAN by Raul Kevin D.O
--- NOTE | 2025-06-19 16:39 | ED.SOB ---
HPI - SOB/Dyspnea General Chief Complaint: Shortness of Breath/Dyspnea Stated Complaint: SOB Time Seen by Provider: 06/19/25 16:20 Source: patient and EMS Mode of arrival: EMS Limitations: no limitations History of Present Illness HPI Narrative: This is a 75-year-old female with history of CKD, diabetes, COPD, CAD who presents to the ED for shortness of breath and palpitations. Patient states that for the past day, she has had increasing shortness of breath that worsened today prompting her to call EMS. She has not felt sick recently. She states that she feels like her heart has been racing in that same amount of time. No history of AFib that she is aware of. She is on any blood thinners. EMS did give her DuoNebs x2 and Solu-Medrol EN route and she is feeling a little bit better at this time but still feels like her heart is racing. Denies chest pain. Related Data Home Medications ?Medication ?Instructions ?Recorded ?Confirmed ?Last Taken ?Type aspirin 81 mg tablet,delayed 81 mg PO DAILY 07/29/19 04/28/25 Unknown History release (Adult Low Dose Aspirin) dapagliflozin propanediol 10 mg 10 mg PO DAILY 12/02/23 04/28/25 Unknown History tablet (Farxiga) Allergies Allergy/AdvReac Type Severity Reaction Status Date / Time naproxen AdvReac Itching Verified 02/10/25 14:38 Review of Systems Review of Systems: Gen.: Denies fevers or chills Eyes: Denies eye pain or visual change ENT: Denies congestion Respiratory: As per HPI CV: As per HPI GI: Denies abdominal pain nausea, emesis or diarrhea denies burning, urgency, frequency or hematuria Musculoskeletal: Denies back pain or muscle pain Neuro: Denies numbness, tingling, weakness or focal weakness Skin: Denies rash Except as documented, all other systems reviewed and negative PMFSH Past Medical History Medical History Chronic kidney disease, stage 3a Screening for breast cancer Fluid in knee Osteoarthritis of left knee Hemoglobin A1c less than 7.0% 08/29/20 A1c 5.9 Joint effusion of knee Left knee pain Pulmonary nodule Eczema Urine test positive for microalbuminuria Hyperkalemia Allergies Leukocytosis Complications of gastric bypass surgery 1994 Cholecystectomy planned Bradycardia Hypertension CAD (coronary artery disease) Hypothyroidism Gout Sleep apnea Chicken pox Migraine Type 2 diabetes mellitus Bulging disc Osteoarthritis Hernia Heart disease Hyperlipidemia Myocardial infarction COPD (chronic obstructive pulmonary disease) Family History Family History Mother Family history of renal failure Diabetes mellitus Hypertension Sibling Heart disease Diabetes mellitus Father Diabetes mellitus Hypertension Other Family history of coronary artery disease Family history of obesity Social History Social History Smoking status: Former smoker Tobacco type: cigarettes Smoking end date: 08/04/17 Alcohol intake: never Do You Feel Safe in your Home?: Yes Lack of Transportation: No Lack of Food: Sometimes True Current Housing: I Have Housing Concerned About Future Housing: No Difficulty Paying Gas/Electric Bills: No Difficulty Paying for Meds: No Currently Unemployed: No Education: Grade School Difficulty w/ Childcare or Family Care: No Gender identity (if verbalized by the patient): Female Exam Narrative: APPEARANCE: No acute distress, nontoxic, resting in bed EYES: EOMI HEENT: Normocephalic, atraumatic, OMM RESPIRATORY: No respiratory distress Clear to auscultation bilaterally with no rhonchi wheezing or rales. CARDIOVASCULAR: Irregularly irregular without murmurs rubs or gallops. ABDOMINAL: Soft, nontender, nondistended, no rebound or guarding MUSCULOSKELETAl: Moves all extremities. No clubbing, cyanosis or edema. NEURO: Awake and alert. Following commands, speech normal, no focal deficits SKIN:: Warm, dry. No rashes lesions or abrasions PSYCHIATRIC: Normal affect/mood, Course Vital Signs Vital signs: Vital Signs Temperature 97.6 F 06/19/25 16:14 Pulse Rate 157 H 06/19/25 16:14 Respiratory Rate 26 H 06/19/25 16:14 Blood Pressure 162/73 H 06/19/25 16:14 Pulse Oximetry 94 06/19/25 16:14 Oxygen Delivery Room Air 06/19/25 16:14 Temperature 97.6 F 06/19/25 16:14 Pulse Rate 157 H 06/19/25 16:14 Respiratory Rate 26 H 06/19/25 16:14 Blood Pressure 162/73 H 06/19/25 16:14 Pulse Oximetry 94 06/19/25 16:14 Oxygen Delivery Room Air 06/19/25 16:21 MDM - SOB/Dyspnea MDM Narrative Medical decision making narrative: 75-year-old female Presenting for shortness of breath and palpitations. On initial evaluation patient was in mild distress afebrile, tachycardic to the 150s in what appeared to be an irregularly irregular rhythm. Differentials include but are not limited to: ACS, CHF Exacerbation, COPD exacerbation, PE, PNA, PTX, bronchitis, viral syndrome, arrhythmia, AFib Notable exam findings: Irregularly irregular, decreased breath sounds throughout with end-expiratory wheeze. I personally reviewed the patient's lab result. Notable lab findings: CBC without significant abnormalities. CMP revealed an DEBBIE with creatinine at 2.26 from baseline around 1.5. I personally reviewed the patient's images and interpret as follows: Chest x-ray showed pulmonary vascular congestion with a mildly enlarged cardiac silhouette I personally reviewed the patient's EKGs: 06/19/2025 at 4:19 p.m.: AFib with RVR rate of 155, right axis deviation, right bundle-branch block, no acute ST or T-wave changes Repeat EK06/19/2025 at 5:26 p.m.: AFib with aberrant conduction rate of 71, right axis deviation, right bundle-branch block, no acute ST or T-wave changes Patient was given 15 mg Cardizem and did have rate control AFib. She was already given DuoNebs x2 and Solu-Medrol by EMS and did have what sounded to be significant improvement of her respiratory symptoms. Did initially discuss the possibility of discharge with the patient, however on, on further review the patient's chart, she is not actively being treated for AFib. She does reportedly have a remote history of AFib but this apparently only happened in the hospital and it does not sound that she was fully evaluated and is not being treated for this at this time. Because of this, she would benefit from admission for combination of AFib with RVR as well as COPD exacerbation. She was started on Rocephin and doxycycline. Case was discussed with hospitalist who will admit the patient. Medical Records Attestation: I reviewed the patient's medical records. Lab Data Attestation: I reviewed the patient's lab results. 06/19/25 18:36 06/19/25 16:39 Labs: Lab Results 06/19/25 06/19/25 Range/Units 16:39 18:36 WBC 9.6 (4.5-10.0) K/mm3 RBC 4.07 L (4.2-5.4) M/mm3 Hgb 13.2 (12.0-15.0) g/dL Hct 41.0 (37.0-47.0) % MCV 100.7 H (80-100) fl MCH 32.4 (26-34) pg MCHC 32.2 (32-36) g/dl RDW 14.3 (11.5-14.5) % Plt Count 178 (150-375) k/mm3 MPV 11.3 H (7.4-10.4) fl Immature Gran % (Auto) 0.5 (0-0.5) % Neut % (Auto) 81.3 H (45.5-73.1) % Lymph % (Auto) 14.4 L (18.3-44.2) % [place] % (Auto) 2.7 (2.6-8.5) % Eos % (Auto) 0.6 (0-4.4) % Baso % (Auto) 0.5 (0.2-1.2) % Lymph # (Auto) 1.38 (0.9-3.2) K/mm3 [place] # (Auto) 0.3 (0.1-0.6) K/mm3 Eos # (Auto) 0.1 (0-0.3) K/mm3 Baso # (Auto) 0.1 (0.0-0.1) K/mm3 Abs Immat Gran (auto) 0.05 H (0.00-0.031) K/mm3 Absolute Neuts (auto) 7.8 H (1.3-6.7) K/mm3 Absolute Nucleated RBC 0.000 (0.0-0.012) K/mm3 Nucleated RBC % 0.0 (0.0-0.2) % PT 13.4 (11.1-14.7) Seconds INR 1.0 APTT 33.1 (22.3-36.8) Seconds Sodium 135 L (137-145) mmol/L Potassium 4.7 (3.4-5.0) mmol/L Chloride 105 (98-107) mmol/L Carbon Dioxide 20 L (22-30) mmol/L Anion Gap 10 (4-12) mmol/L BUN 46 H D (7-17) mg/dL Creatinine 2.26 H (0.7-1.0) mg/dL Estim Creat Clear Calc 20 ml/min Estimated GFR 21 L (59 - ) Glucose 211 H (65-110) mg/dL Calcium 9.1 (8.4-10.2) mg/dL Total Bilirubin 0.6 (0.2-1.3) mg/dL AST 38 H (14-36) U/L ALT 27 (6-35) U/L Alkaline Phosphatase 131 H (38-126) U/L Total Protein 7.6 (6.3-8.2) g/dL Albumin 4.1 (3.5-5.1) g/dL Imaging Data Radiologist's impression: Impressions Chest X-Ray 06/19/25 17:04 Impression: CHF Discharge Plan Discharge Clinical Impression: Acute exacerbation of chronic obstructive pulmonary disease, Atrial fibrillation with rapid ventricular response, DEBBIE (acute kidney injury) CHF (congestive heart failure) Qualifiers: Heart failure type: unspecified Heart failure chronicity: unspecified Qualified Code(s): I50.9 - Heart failure, unspecified Patient Disposition: Still a Patient Condition: Stable
--- OUTSIDE RECORDS SUMMARY | 2025-06-19 16:45 | XMS_ITS | Clinical Summary ---
Author Organization [facility] Address [address] [place] [address] Phone Care Team Providers Care Hand Cementer Name Role Phone Everett Birch DO Primary Care Provider [phone] Allergies Active Allergy Reactions Criticality Noted Date Comments Naproxen Itching 04/03/2022 Medications aspirin (ST WEI) 81 MG EC tablet Take 81 mg by mouth 1 (one) time each day Active allopurinol (ZYLOPRIM) 300 MG tablet Take 300 mg by mouth 1 (one) time each day Active hydroCHLOROthiaz monty (HYDRODIURIL) 12.5 MG tablet Take 12.5 mg [...] MG tablet Take 75 mg by mouth in the morning and 75 mg in the evening. Active losartan (COZAAR) 100 MG tabletIndication s:Proteinuria, not otherwise specified Take 1 tablet (100 mg total) by mouth 1 (one) time each day 90 tablet 3 3 Active Farxiga 10 MG tabletIndication s:Diabetes mellitus with renal manifestations, type II or unspecified type, uncontrolled ([facility]) TAKE 1 TABLET BY MOUTH EVERY DAY 30 tablet 10 5 Active Farxiga 10 MG tabletIndication s:Diabetes mellitus with renal manifestations, type II or unspecified type, uncontrolled ([facility]) TAKE 1 TABLET BY MOUTH EVERY DAY 30 tablet 3 5 025 Discontin ued(Reord er) Active Problems Problem Noted Date Diagnosed Date Stage 3b chronic kidney disease 04/13/2025 Diabetes mellitus with renal manifestations, type II or unspecified type, uncontrolled 02/14/2022 Essential (primary) hypertension 02/14/2022 Proteinuria 02/14/2022 Resolved Problems Problem Noted Date Diagnosed Date Resolved Date Stage 3a chronic kidney disease 11/06/2023 04/13/2025 Chronic obstructive pulmonary disease 02/14/2022 03/26/2022 Hyperlipidemia 02/14/2022 12/24/2023 Hypothyroidism 02/14/2022 03/26/2022 Obstructive sleep apnea 02/14/202203/05 Encounters Date Type Department Care Team Description 05/27/2025 Refill [facility] [address] [place] [id number] Jennifer Chairez NP Diabetes mellitus with renal manifestations, type II or unspecified type, uncontrolled ([facility]) 04/14/2025 2:00 PM CDT Office Visit [facility] [address] [place] [id number] Jennifer Chairez NP Stage 3b chronic kidney disease ([facility]) (Primary Dx); Essential (primary) hypertension; Diabetes mellitus with renal manifestations, type II or unspecified type, uncontrolled ([facility]); Proteinuria, not otherwise specified from Last 3 [...] Sign Reading Time Taken Comments Blood Pressure 198/79 04/14/2025 1:48 PM CDT Pulse 66 04/14/2025 1:48 PM CDT Temperature 36.7 C (98 F) 04/03/2022 2:32 PM CDT Respiratory Rate - - Oxygen Saturation 94% 04/03/2023 2:44 PM CDT Inhaled Oxygen Concentration - - Weight 88.9 kg (196 lb) 04/14/2025 1:48 PM CDT Height 157.5 cm (5' 2) 04/14/2025 1:48 PM CDT Body Mass Index 35.85 04/14/2025 1:48 PM CDT Plan of Treatment Upcoming Encounters Date Type Department Care Team ([facility] st Contact Info) Description 08/18/2025 2:00 PM COMBINATION SAW OPERATOR Office Visit [facility] [address] [facility] [address] [place], [place] [phone] Jennifer Chairez, STRATEGIC MARKETING MANAGER [address] [facility] [address] [place], [place] [id number] Health Maintenance Due Date Last Done Comments Diabetic Foot Exam 1960 Ophthalmology Exam 1960 Influenza Vaccine (#1) 2025 8, 05/19/2018, 06/15/2013, Additional history exists Pneumococcal PPSV23/PCV13 65 + Years / High and Highest Risk Completed 05/19/2017, 05/10/2017 Insurance [facility] MEDICAID Care Teams Hand Cementer Relationship Specialty Start Date End Date Everett Birch DO [address] [place] [address] PCP - General Internal Medicine 10/15/21
[2025-06-19 17:01] LABS: Alanine Aminotransferase 27 U/L (6-35); Albumin Level 4.1 g/dL (3.5-5.1); Alkaline Phosphatase 131 U/L (38-126); Anion Gap 10 mmol/L (4-12); Aspartate Amino Transferase 38 U/L (14-36); Bilirubin,Total 0.6 mg/dL (0.2-1.3); Blood Urea Nitrogen 46 mg/dL (7-17); Calcium 9.1 mg/dL (8.4-10.2); Carbon Dioxide 20 mmol/L (22-30); Chloride 105 mmol/L (98-107); Estimated CRCL calculation 20 ml/min; Estimated Glomerular Filt Rate 21; Glucose 211 mg/dL (65-110); Potassium 4.7 mmol/L (3.4-5.0); Sodium 135 mmol/L (137-145); Total Protein 7.6 g/dL (6.3-8.2)
--- NOTE | 2025-06-19 17:10 | ECG_ITS ---
Test Date: 2025-06-19 17:26:39 Measurements Intervals [place] Rate: 71 P: 0 [place]: 0 QRS: 268 QRSD: 134 T: 2 QT: 438 QTc: 478 Interpretive Statements ATRIAL FIBRILLATION WITH ABERRANT CONDUCTION OR VENTRICULAR PREMATURE COMPLEXES RIGHT BUNDLE BRANCH BLOCK POSSIBLE ANTERIOR MYOCARDIAL INFARCTION , OF INDETERMINATE AGE Electronically Signed On 06-20-2025 00:12:01 HIGH RAW SUGAR BOILER by Raul Kevin D.O
[2025-06-19 18:42] LABS: Hematocrit 41.0 % (37.0-47.0); Hemoglobin 13.2 g/dL (12.0-15.0); Immature Granulocyte Percent A 0.5 % (0-0.5); Lymphocytes Absolute Auto 1.38 K/mm3 (0.9-3.2); Mean Corpuscular HGB Conc 32.2 g/dl (32-36); Mean Corpuscular Hemoglobin 32.4 pg (26-34); Mean Corpuscular Volume 100.7 fl (80-100); Nucleated Red Blood Cells Absolute Auto 0.000 K/mm3 (0.0-0.012); Nucleated Red Blood Cells Perc 0.0 % (0.0-0.2); Platelet Count Result 178 k/mm3 (150-375); Red Blood Count 4.07 M/mm3 (4.2-5.4); White Blood Count 9.6 K/mm3 (4.5-10.0)
[2025-06-19] MEDS: cefTRIAXone 2 GM in SODIUM CHLORIDE 0.9% IV 100 ML 200 ML IVPB (19:48)
[2025-06-19] MEDS: HEPARIN SOD/D5W 100 UNITS/ML 25,000 UNITS/250 ML BAG 12 UNITS IV CONT (19:49)
[2025-06-19] MEDS: SODIUM CHLORIDE 0.9% IV 1,000 ML 999 ML IV CONT (19:49)
[2025-06-19 19:58] LABS: INR 1.0; Prothrombin Time 13.4 Seconds (11.1-14.7)
[2025-06-19 19:59] LABS: Partial Thromboplastin Time 33.1 Seconds (22.3-36.8)
--- NOTE | 2025-06-19 21:19 | PM.IMHP ---
H&P: HPI History of Present Illness Date/Time: 06/19/25 21:19 Chief Complaint: Shortness of breath, palpitations Narrative: 75-year-old female with history of CKD, obesity class 2, diabetes without current long-term use of insulin, CAD status post stents, COPD, prior tobacco use disorder, CHF, osteoarthritis, hypertension, hypothyroidism, hyperlipidemia presents to [facility] ER on 06/19/2025 with 1 day of shortness of breath and palpitations. She has otherwise been in her usual state of health, last discharged from [facility] for heart failure exacerbation. She denies any history of AFib. EMS gave DuoNebs x2 in Solu-Medrol in route. She felt as if she was feeling better per her heart was still racing. EKG showed EKG showed AFib with RVR rate 155, patient received 50 mg Cardizem IV, with subsequent rate control an EKG demonstrating AFib. Blood pressure elevated 160/50, saturating 94% on room air. Patient resting comfortably. WBC 9600, BUN 46, serum creatinine 2.26 which is an increase from her baseline, chest x-ray showing pulmonary vascular congestion. Patient given 1 L normal saline, ceftriaxone doxycycline, and heparin GTT started. Review of Systems Review of Systems: All systems reviewed & are unremarkable except as noted in HPI and below (Subjective) [facility] Past Medical History Medical History Chronic kidney disease, stage 3a Screening for breast cancer Fluid in knee Osteoarthritis of left knee Hemoglobin A1c less than 7.0% 08/29/20 A1c 5.9 Joint effusion of knee Left knee pain Pulmonary nodule Eczema Urine test positive for microalbuminuria Hyperkalemia Allergies Leukocytosis Complications of gastric bypass surgery 1994 Cholecystectomy planned Bradycardia Hypertension CAD (coronary artery disease) Hypothyroidism Gout Sleep apnea Chicken pox Migraine Type 2 diabetes mellitus Bulging disc Osteoarthritis Hernia Heart disease Hyperlipidemia Myocardial infarction COPD (chronic obstructive pulmonary disease) Family History Family History Mother Family history of renal failure Diabetes mellitus Hypertension Sibling Heart disease Diabetes mellitus Father Diabetes mellitus Hypertension Other Family history of coronary artery disease Family history of obesity Social History Social History Smoking status: Former smoker Tobacco type: cigarettes Smoking end date: 08/04/17 Alcohol intake: never Do You Feel Safe in your Home?: Yes Lack of Transportation: No Lack of Food: Sometimes True Current Housing: I Have Housing Concerned About Future Housing: No Difficulty Paying Gas/Electric Bills: No Difficulty Paying for Meds: No Currently Unemployed: No Education: Grade School Difficulty w/ Childcare or Family Care: No Gender identity (if verbalized by the patient): Female Meds Home Medications and Allergies Home Medications ?Medication ?Instructions ?Recorded ?Confirmed ?Type aspirin 81 mg tablet,delayed 81 mg PO DAILY 07/29/19 04/28/25 History release (Adult Low Dose Aspirin) dapagliflozin propanediol 10 mg 10 mg PO DAILY 12/02/23 04/28/25 History tablet (Farxiga) losartan 100 mg tablet 100 mg PO DAILY #30 tabs 01/17/25 04/28/25 Rx nebivolol 20 mg tablet 20 mg PO DAILY #30 tabs 01/26/25 04/28/25 Rx fluticasone propionate 50 1 spray intranasal Q12H #48 grams 02/25/25 04/28/25 Rx mcg/actuation nasal spray,suspension (Flonase Allergy Relief) hydrochlorothiazide 12.5 mg tablet See Rx Instructions .Route 02/25/25 04/28/25 Rx .COMPLEX #180 tabs amlodipine 10 mg tablet See Rx Instructions .Route 03/14/25 04/28/25 Rx .COMPLEX #90 tabs atorvastatin 80 mg tablet See Rx Instructions .Route 03/14/25 04/28/25 Rx .COMPLEX #90 tabs isosorbide mononitrate 60 mg See Rx Instructions .Route 03/14/25 04/28/25 Rx tablet,extended release 24 hr .COMPLEX #90 tabs levothyroxine 100 mcg tablet See Rx Instructions .Route 03/14/25 04/28/25 Rx .COMPLEX #90 tabs allopurinol 100 mg tablet 100 mg PO TID #270 tabs 04/18/25 04/28/25 Rx albuterol sulfate 90 mcg/actuation See Rx Instructions .Route 05/02/25 Rx aerosol inhaler .COMPLEX #42.5 grams hydralazine 50 mg tablet 50 mg PO TID #270 tabs 05/02/25 Rx metformin 1,000 mg tablet 1,000 mg PO DAILY #90 tabs 05/26/25 Rx fluticasone fur. 100 mcg-umeclid 1 inh inhalation Q24H #60 ea 05/27/25 Rx 62.5 mcg-vilant 25 mcg inhalat.powder (Trelegy Ellipta) Allergies Allergy/AdvReac Type Severity Reaction Status Date / Time naproxen AdvReac Itching Verified 02/10/25 14:38 Vital Signs Vital Signs - 24 hr 06/19/25 16:14 06/19/25 16:21 Temperature 97.6 F Pulse Rate 157 H Respiratory Rate 26 H Blood Pressure 162/73 H Pulse Oximetry 94 Oxygen Delivery Room Air Room Air Exam Const: General: comfortable and no acute distress Other: A&O x4 HENMT: Mouth: Yes moist mucous membranes Eyes: Pupils: Equal, round and reactive pupils present Neck: Neck: supple Resp: Effort & Inspection: normal respiratory effort Other: Diminished lung sounds, scant expiratory wheeze in scant crackles. Cardio: Rate: regular rate Rhythm: abnormal rhythm GI: Inspection: non-distended GI Palp: Yes Soft to palpation : General: Yes bladder normal to palpation Neuro: Motor exam (neuro): 5/5 motor strength present throughout Extrem: General: no edema H&P: Results Labs Labs: Short CBC 06/19/25 Range/Units 18:36 WBC 9.6 (4.5-10.0) K/mm3 Hgb 13.2 (12.0-15.0) g/dL Hct 41.0 (37.0-47.0) % Plt Count 178 (150-375) k/mm3 BMP 06/19/25 16:39 Sodium 135 L Potassium 4.7 Chloride 105 Carbon Dioxide 20 L BUN 46 H D Creatinine 2.26 H Glucose 211 H Calcium 9.1 Liver Function 06/19/25 Range/Units 16:39 Total Bilirubin 0.6 (0.2-1.3) mg/dL AST 38 H (14-36) U/L ALT 27 (6-35) U/L Alkaline Phosphatase 131 H (38-126) U/L Albumin 4.1 (3.5-5.1) g/dL Assessment and Plan Assessment and plan (1) CHF (congestive heart failure): Qualifiers: Heart failure chronicity: unspecified Heart failure type: unspecified Qualified Code(s): I50.9 - Heart failure, unspecified Code(s): I50.9 - Heart failure, unspecified Status: Acute (2) Atrial fibrillation with rapid ventricular response: Code(s): I48.91 - Unspecified atrial fibrillation Status: Acute (3) DEBBIE (acute kidney injury): Code(s): N17.9 - Acute kidney failure, unspecified Status: Acute (4) Chronic kidney disease, stage 3b: Code(s): N18.32 - Chronic kidney disease, stage 3b Status: Acute (5) COPD (chronic obstructive pulmonary disease): Code(s): J44.9 - Chronic obstructive pulmonary disease, unspecified Status: Acute Plan 75-year-old female with history of CKD, obesity class 2, diabetes without current long-term use of insulin, CAD status post stents, COPD, prior tobacco use disorder, CHF, osteoarthritis, hypertension, hypothyroidism, hyperlipidemia presents to [facility] ER on 06/19/2025 with 1 day of shortness of breath and palpitations. She has otherwise been in her usual state of health, last discharged from [facility] for heart failure exacerbation. She denies any history of AFib. EMS gave Coferon x2 in Solu-Medrol in route. She felt as if she was feeling better per her heart was still racing. EKG showed EKG showed AFib with RVR rate 155, patient received 50 mg Cardizem IV, with subsequent rate control an EKG demonstrating AFib. Blood pressure elevated 160/50, saturating 94% on room air. Patient resting comfortably. WBC 9600, BUN 46, serum creatinine 2.26 which is an increase from her baseline, chest x-ray showing pulmonary vascular congestion. Patient given 1 L normal saline, ceftriaxone doxycycline, and heparin GTT started. ----- Shortness of breath resolved. Currently AFib with controlled rate. Continue heparin GTT. Start metoprolol 25 mg p.o. b.i.d.. 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 Check TSH, 2D echocardiogram. Check magnesium. Potassium is 4.7, continue to trend. Mild COPD exacerbation, her symptoms could have been related to AFib and pulmonary vascular congestion. Continue with ipratropium nebulizers q.4 hours for now. Will hold off on further steroids, she received Solu-Medrol with EMS. Restart SEO MARKETING SPECIALIST controller medications. Pulmonary vascular congestion on x-ray/auscultation of lungs. No lower extremity edema. Reports she was discharged from [facility] in December 2024 with heart failure but not sent home on diuretics. Patient did receive 1 L normal saline bolus in the ER, she is still saturating well on room air and breathing comfortably. Now that her AFib with RVR is controlled we will monitor. Same goes for DEBBIE on CKD. Daily weights, strict intake/output. Accu-Cheks a.c. HS with low-dose insulin sliding scale and hypoglycemia protocol. CAD status post stents: Resume SEO MARKETING SPECIALIST aspirin and atorvastatin. ---- Patient and daughter live together, daughter hopes to report history. Patient requests to be DNR. Daughter present. Saline lock IV. Heart healthy diabetic diet. Hospitalist [facility] Advance Care Plan I have confirmed that the patient's Advanced Care Plan is present, code status is documented, or surrogate decision maker is listed in patient medical record.: Yes Medication Reconciliation I have utilized all available resources to obtain, update and review the patients current medications (includes all prescriptions, OTC, herbals, cannabis, and nutritional supplements).: Yes
[2025-06-19 21:36] LABS: Magnesium 2.4 mg/dL (1.6-2.3)
[2025-06-19] MEDS: DOXYCYCLINE IV 100 MG in SODIUM CHLORIDE 0.9% IV 100 ML IVPB (22:40)
[2025-06-19] MEDS: ACETAMINOPHEN 500 MG TABLET 1000 MG PO (23:56)
[2025-06-20] VITALS (39 sets, daily range): BP systolic 158–199; BP diastolic 43–92; PULSE 51–147; RESP 8–24; TEMP 36.8; O2SAT 86–98; BMI 38.5
--- NOTE | 2025-06-20 | ECHO_ITS ---
Patient Info Name: Vashti Littlejohn Age: 75 years : 1950 Gender: Female Ht: 24 in Wt: 437 lbs BSA: 2.14 m2 HR: 67 bpm BP: 162 / 73 mmHg Heart Rhythm: Sinus Rhythm Technical Quality: Fair Exam Date: 06/20/2025 11:47 AM Patient Status: I Admit Date: 06/19/2025 Exam Type: CA echo dop color flow w con Complete two-dimensional, color flow and Doppler transthoracic echocardiogram is performed with contrast to opacify the left ventricle and to improve the deliniation of the left ventricle endocardial borders. Staff Referring Physician: Krystal Deutsch [employer] Hand Finisher: Vale Rodriguez Attending Provider: Shirley Raymundo Contrast/Agitated Saline Contrast/Ag. Saline: Definity Amount: 3.00 ml Administered By: Vale Rodriguez Existing IV Access: Yes IV Access Condition: patent with no signs of infiltration Summary 1. Definity contrast administered improved wall motion interpretation. 2. Left ventricular chamber dimension is normal. 3. Left ventricular systolic function is normal, estimated at 65-70. 4. There is moderate concentric increased left ventricular wall thickness. 5. E/e' 48 is significantly elevated. 6. Left atrial chamber dimension is severely enlarged. 7. The mitral valve has moderately calcified leaflets and a moderately calcified annulus. 8. There is mild mitral valve regurgitation. 9. There is mild tricuspid valve regurgitation. 10. Severe pulmonary hypertension, estimated pulmonary arterial systolic pressure is 63 mmHg. 11. Dilated inferior vena cava with >50% collapse upon inspiration consistent with elevated right atrial pressure, 10 mmHg. Left Ventricle Definity contrast administered improved wall motion interpretation. Left ventricular chamber dimension is normal. Left ventricular systolic function is normal, estimated at 65-70. There is moderate concentric increased left ventricular wall thickness. E/e' 48 is significantly elevated. Right Ventricle Right ventricular chamber dimension is normal. Right ventricular systolic function is normal and with normal TAPSE 2.3 cm. Left Atria Left atrial chamber dimension is severely enlarged. Right Atria Right atrial chamber dimension is normal. Aortic Valve The aortic valve is trileaflet. There is no aortic valve stenosis. There is no aortic valve regurgitation. Pulmonic Valve There is no pulmonic regurgitation. Mitral Valve The mitral valve has moderately calcified leaflets and a moderately calcified annulus. There is mild mitral valve stenosis with valve area of 1.9 cm2. There is mild mitral valve regurgitation. Tricuspid Valve There is mild tricuspid valve regurgitation. Severe pulmonary hypertension, estimated pulmonary arterial systolic pressure is 63 mmHg. Pericardium/Pleural There is no pericardial effusion. Inferior Vena Cava Dilated inferior vena cava with >50% collapse upon inspiration consistent with elevated right atrial pressure, 10 mmHg. Aorta The aortic root size at the sinus of Valsalva is normal. Left Ventricular Outflow Tract Name Value Normal LVOT 2D LVOT Diameter 2.0 cm LVOT Doppler LVOT Peak Velocity 88 cm/s LVOT Peak Gradient 3 mmHg LVOT Mean Gradient 2 mmHg LVOT VTI 26 cm LVOT VTI/AV VTI Ratio 0.7 LVOT Stroke Volume 87 ml LVOT CO 5.3 l/min LVOT CI 2.5 l/min/m2 Pulmonic Valve Name Value Normal RVOT Doppler RVOT Peak Velocity 89 cm/s RVOT Peak Gradient 3 mmHg PV Doppler PV Peak Velocity 111 cm/s PV Peak Gradient 5 mmHg Mitral Valve Name Value Normal MV Doppler MV Peak Gradient 14 mmHg MV Mean Gradient 3 mmHg MV Area (Cont Eq VTI) 1.9 cm2 MV Regurgitation Doppler MR Peak Gradient 150 mmHg MV Diastolic Function MV E Peak Velocity 174 cm/s MV A Peak Velocity 87 cm/s MV E/A 2.0 MV Decel Time (PW) 170 ms MV Annular TDI MV E/e' (Septal) 50.4 MV E/e' (Lateral) 47.4 MV E/e' (Average) 48.9 Tricuspid Valve Name Value Normal TV Doppler TV PHT 62 ms TV Area (PHT) 3.6 cm2 TV Regurgitation Doppler TR Peak Velocity 362 cm/s TR Peak Gradient 53 mmHg Estimated PAP/RSVP RA Pressure 10 mmHg <=5 PA Systolic Pressure 63 mmHg <36 RV Systolic Pressure 63 mmHg <36 TV Diastolic Function TV E Peak Velocity 158 cm/s TV A Peak Velocity 85 cm/s TV E/A 1.9 0.8-2.0 TV Decel Time 212 ms 119-242 TV Decel Lenoir 744 cm/s2 TV Annular TDI TV Lateral Nataliya s' Velocity 12.7 cm/s >=9.5 Aorta Name Value Normal Ascending Aorta Ao Root Diameter (MM) 2.8 cm Ao Root Diam Index (MM) 1.3 cm/m2 Aortic Valve Name Value Normal AV Doppler AV Peak Velocity 136 cm/s AV Peak Gradient 7 mmHg AV Mean Gradient 4 mmHg AV VTI 35 cm AV Area (Cont Eq VTI) 2.5 cm2 >=3.0 AV Area (Cont Eq Maksim) 2.1 cm2 AV DI (Maksim) 0.65 AV Regurgitation 2D LVOT Area 3.3 cm2 Ventricles Name Value Normal LV Dimensions 2D/MM IVS Diastolic Thickness (2D) 1.8 cm 0.6-1.0 LVID Diastole (2D) 4.9 cm 3.8-5.2 LVIW Diastolic Thickness (2D) 1.0 cm 0.6-0.9 LVID Systole (2D) 2.6 cm 2.2-3.5 LVOT Diameter 2.0 cm LV Mass (2D Cubed) 285.16 g 67.00-162.00 LV Mass Index (2D Cubed) 133 g/m2 43-95 Relative Wall Thickness (2D) 0.43 <=0.42 LV Fractional Shortening/Ejection Fraction 2D/MM LV Fractional Shortening (2D) 47 % 27-45 LV EF (2D Teichholz) 78 % LV Diastolic Volume (4C MOD) 123 ml LV EF (4C MOD) 79 % LV Diastolic Volume (2C MOD) 77 ml LV EF (2C MOD) 64 % LV Diastolic Volume (BP MOD) 104 ml 46-106 LV Diastolic Volume Index (BP MOD) 49 ml/m2 29-61 LV Systolic Volume (BP MOD) 27 ml 14-42 LV Systolic Volume Index (BP MOD) 13 ml/m2 8-24 LV EF (BP MOD) 74 % 54-74 LV Diastolic Length (4C) 8.5 cm LV Systolic Length (4C) 6.5 cm LV Stroke Volume (4C MOD) 97 ml Atria Name Value Normal LA Dimensions LA Dimension (MM) 5.0 cm 2.7-3.8 LA Volume (4C A-L) 119 ml LA Volume (BP A-L) 102 ml RA Dimensions RA Area (4C) 15.4 cm2 <=18.0 Report Signatures
[2025-06-20] MEDS: METOPROLOL TARTRATE INJ 5 MG/5 ML VIAL IV PUSH (00:10)
[2025-06-20] MEDS: IPRATROPIUM BR 0.02% INH SOLN 0.5 MG/2.5 ML VIAL INHALATION ×4 (01:33→20:07)
[2025-06-20 05:29] LABS: Hematocrit 37.3 % (37.0-47.0); Hemoglobin 12.3 g/dL (12.0-15.0); Mean Corpuscular HGB Conc 33.0 g/dl (32-36); Mean Corpuscular Hemoglobin 32.6 pg (26-34); Mean Corpuscular Volume 98.9 fl (80-100); Platelet Count Result 165 k/mm3 (150-375); Red Blood Count 3.77 M/mm3 (4.2-5.4); White Blood Count 6.3 K/mm3 (4.5-10.0)
[2025-06-20 05:57] LABS: Alanine Aminotransferase 23 U/L (6-35); Albumin Level 3.7 g/dL (3.5-5.1); Alkaline Phosphatase 114 U/L (38-126); Anion Gap 10 mmol/L (4-12); Aspartate Amino Transferase 29 U/L (14-36); Bilirubin,Total 0.4 mg/dL (0.2-1.3); Blood Urea Nitrogen 51 mg/dL (7-17); Calcium 8.6 mg/dL (8.4-10.2); Carbon Dioxide 20 mmol/L (22-30); Chloride 105 mmol/L (98-107); Estimated CRCL calculation 20 ml/min; Estimated Glomerular Filt Rate 21; Glucose 198 mg/dL (65-110); Magnesium 2.4 mg/dL (1.6-2.3); Potassium 5.1 mmol/L (3.4-5.0); Sodium 135 mmol/L (137-145); Total Protein 6.9 g/dL (6.3-8.2)
[2025-06-20 06:30] LABS: INR 1.1; Prothrombin Time 14.4 Seconds (11.1-14.7)
[2025-06-20 06:32] LABS: Partial Thromboplastin Time 106.6 Seconds (22.3-36.8)
[2025-06-20 06:46] LABS: Thyroid Stimulating Hormone Reflex 1.090 uIU/mL (0.465-4.68)
--- NOTE | 2025-06-20 07:22 | P.PNIM_ITS ---
Progress Note: A&P Assessment and Plan (1) CHF (congestive heart failure): Qualifiers: Heart failure chronicity: unspecified Heart failure type: unspecified Qualified Code(s): I50.9 - Heart failure, unspecified Code(s): I50.9 - Heart failure, unspecified Status: Acute Assessment and Plan: Pulmonary vascular congestion on x-ray/auscultation of lungs. No lower extremity edema. Reports she was discharged from [facility] in December 2024 with heart failure but not sent home on diuretics. Patient did receive 1 L normal saline bolus in the ER, she is still saturating well on room air and breathing comfortably. Now that her AFib with RVR is controlled we will monitor. Same goes for DEBBIE on CKD. Daily weights, strict intake/output. 06/20: Lung sounds clear today, diminished in the lower lobes. Pt with no retained fluid upon exam but pt still tachypneic. -Pt dx with CHF December 2024 with no new meds. -SOB with tachypnea today upon initial assessment, will re-assess after RT intervention (breathing tx, inhaler), if does not help, will order VQ scan. Continue heparin gtt. -When reexamined, pt denies SOB/CP/palpitations. Continue with plan for VQ scan, IMU, heparin gtt, and breathing txs. (2) Atrial fibrillation with rapid ventricular response: Code(s): I48.91 - Unspecified atrial fibrillation Status: Acute Assessment and Plan: ED EKG showed AFib with RVR rate 155, patient received 50 mg Cardizem IV, with subsequent rate control an EKG demonstrating AFib. Shortness of breath resolved. Currently AFib with controlled rate. Continue heparin GTT. Start metoprolol 25 mg p.o. b.i.d.. Hold other [employer] antihypertensives and restart if blood pressure remains high. Check TSH, 2D echocardiogram. Check magnesium. Potassium is 4.7, continue to trend. 06/20: Initially CP, SOB, and palpitations, resolved after breathing tx -Echo yieldin. Severe pulmonary hypertension, estimated pulmonary arterial systolic pressure is 63 mmHg. 11. Dilated inferior vena cava with >50% collapse upon inspiration consistent with elevated right atrial pressure, 10 mmHg. -->Pulm consulted today, cards following -TSH WDL, mag stable -Potassium 5.1 with AM labs, will continue with hctz admin once med rec performed, continue to trend. -Continue tele -Continue Heparin gtt & metoprolol 25mg BID -Cards following with below recs: Back in sinus rhythm. [id number] 5. On heparin drip. Upon discharge will change heparin to Eliquis 2.5 mg BID. Start Sotalol 40 mg BID. Monitor EKG. Obtain echo. (3) DEBBIE (acute kidney injury): Code(s): N17.9 - Acute kidney failure, unspecified Status: Acute Assessment and Plan: Now that her AFib with RVR is controlled we will monitor. Daily weights, strict intake/output. 06/20: Creatinine baseline seems to be around 1.3-1.6, -2.28 today, continue to trend daily -1L given in ED, pt with CHF hx (new December 2024) -Restarted HTN meds today (4) Chronic kidney disease, stage 3b: Code(s): N18.32 - Chronic kidney disease, stage 3b Status: Acute Assessment and Plan: See above. (5) COPD (chronic obstructive pulmonary disease): Code(s): J44.9 - Chronic obstructive pulmonary disease, unspecified Status: Acute Assessment and Plan: Mild COPD exacerbation, her symptoms could have been related to AFib and pulmonary vascular congestion. Continue with ipratropium nebulizers q.4 hours for now. Will hold off on further steroids, she received Solu-Medrol with EMS. Restart [employer] controller medications. 06/20: Pt with clear lungs today -Steroids given in ED, if wheezing continues, may give additional steroids. -Continuously 88% on 3L NC, pt reports her normal saturation at home is around 94% (6) CAD (coronary artery disease): Qualifiers: Associated angina: unspecified whether angina present Coronary Disease- Associated Artery/Lesion type: unspecified vessel or lesion type [place] vs. transplanted heart: unspecified whether [place] or transplanted heart Qualified Code(s): I25.10 - Atherosclerotic heart disease of [place] coronary artery without angina pectoris Code(s): I25.10 - Atherosclerotic heart disease of [place] coronary artery without angina pectoris Status: Acute Assessment and Plan: S/p stents. Resume [employer] aspirin and atorvastatin. 06/20: SOB, CP, palpitations resolved. -See above. (7) Type 2 diabetes mellitus with diabetic chronic kidney disease: Code(s): E11.22 - Type 2 diabetes mellitus with diabetic chronic kidney disease Status: Acute Assessment and Plan: Accu-Cheks a.c. HS with low-dose insulin sliding scale and hypoglycemia protocol. 06/20: FBS 198 this AM -Steroids given by EMS, will continue to trend -PO DM meds on hold during hospitalization (8) Hypertension: Qualifiers: Hypertension type: essential hypertension Qualified Code(s): I10 - Essential (primary) hypertension Code(s): I10 - Essential (primary) hypertension Status: Acute Assessment and Plan: Acute on chronic. [employer] antihypertensives once med rec entered. 06/20: Restarted Pt home meds: losartan 100mg, hctz 25mg, hydral 50 TID -Continue to monitor (9) Pulmonary hypertension: Code(s): I27.20 - Pulmonary hypertension, unspecified Status: Acute Assessment and Plan: -Echo yieldin. Severe pulmonary hypertension, estimated pulmonary arterial systolic pressure is 63 mmHg. 11. Dilated inferior vena cava with >50% collapse upon inspiration consistent with elevated right atrial pressure, 10 mmHg. -->Pulm consulted today, cards following -Pt reports alleviation of SOB/CP/palpitations, she is still satting at 88% on 3L Plan Patient and daughter live together, daughter hopes to report history. Patient requests to be DNR. Daughter present. Saline lock IV. Heart healthy diabetic diet. Time Spent With Patient Time: 60 Subjective Date/time seen: 06/20/25 1130 Interval history: Upon my initial examination, pt had just arrived to the floor from the ED. Pt SOB with mild CP still. Bedside RN underway with medication administration (home meds including HTN meds), inhaler via RT, and the vp information technology just arrived to the room. Cards entered the room during my assessment and performed an assessment with plans for sotalol and an oral anti PLT med eventually after hep gtt. Plans to reassess after pt inhaler/breathing tx. Per pt, she is on 1L NC, she is on 3L NC now. Upon reexamination and breathing tx, pt with no more SOB, CP, or palpations. Pt moved to IMU step down for closer monitoring and loading doses of sotalol. Review of Systems Review of Systems: All systems reviewed & are unremarkable except as noted in HPI and below (Subjective) Exam Const: General: comfortable and no acute distress Other: A&O x4, obese HENMT: Mouth: Yes moist mucous membranes Eyes: General: appearance normal, both eyes and all related structures Sclera: sclerae normal Neck: Neck: supple Carotids: no bruits Resp: Effort & Inspection: normal respiratory effort Other: Diminished lung sounds, no wheezes present. Tachypneic initially, resolved Cardio: Rate: regular rate Rhythm: regular rhythm Other: Tele: 61bpm GI: Inspection: non-distended Auscultation: normal bowel sounds Skin: General skin exam: normal color and no rashes or lesions noted Neuro: Cranial nerves: Yes Equal, round and reactive pupils present Motor exam (neuro): Normal motor muscle tone present throughout Sensory Exam: normal sensation Extrem: General: no edema Psych: Mental Status: mental status grossly normal Affect: normal affect Objective Data Vital Signs Vital Signs: Vital Signs - 24 hr 06/19/25 16:14 06/19/25 16:21 06/20/25 00:10 Temperature 97.6 F Pulse Rate 157 H 147 H Respiratory Rate 26 H Blood Pressure 162/73 H Pulse Oximetry 94 Oxygen Delivery Room Air Room Air Oxygen Flow Rate Fraction of Inspired Oxygen 06/20/25 01:34 06/20/25 01:36 06/20/25 01:45 Temperature Pulse Rate 68 69 67 Respiratory Rate 20 20 20 Blood Pressure Pulse Oximetry 94 Oxygen Delivery Nasal Cannula Oxygen Flow Rate 2 Fraction of Inspired Oxygen 28 06/20/25 03:37 06/20/25 07:01 Temperature Pulse Rate 61 71 Respiratory Rate 20 19 Blood Pressure 162/54 H 199/59 H Pulse Oximetry 94 95 Oxygen Delivery Oxygen Flow Rate Fraction of Inspired Oxygen Intake/Output Intake/Output: Intake & Output 06/17/25 06/18/25 06/19/25 06/20/25 23:59 23:59 23:59 23:59 Intake Total 1200 130.8 Balance 1200 130.8 Meds/Results Medications: Active Medications Generic Name Dose Route Start Last Admin Trade Name Freq PRN Reason Stop Dose Admin Acetaminophen 1,000 mg 06/19/25 22:44 06/19/25 23:56 Acetaminophen 500 Mg Tablet PO 1,000 mg TID PRN Administration Mild Pain (1-3) or Fever Dextrose 12.5 gm 06/19/25 21:30 Dextrose 50% 25 Gm/50 Ml Syringe IV PUSH PRN PRN Hypoglycemia Protocol Glucose 15 gm 06/19/25 21:30 Glucose Oral Gel 15 Gm Of Glucse In 37.5 Gm Tube PO PRN PRN Hypoglycemia Protocol Heparin Sodium (Porcine) 5,500 units 06/19/25 19:03 Heparin Sodium 5,000 Units/Ml Vial IV PUSH PRN PRN aPTT less than 55 seconds Heparin Sodium (Porcine) 2,500 units 06/19/25 19:03 Heparin Sodium 5,000 Units/Ml Vial IV PUSH PRN PRN aPTT 55 - 70 seconds Heparin Sodium/Dextrose 25,000 units in 250 mls @ 11 mls/hr 06/19/25 19:05 06/20/25 06:43 Heparin Sodium/D5w 100 Units/Ml IV CONT 1,100 units/hr .[id number] DAVID 11 mls/hr Protocol Titration 1,100 UNITS/HR Dextrose 1,000 mls @ 100 mls/hr 06/19/25 21:30 Dextrose 5% 1,000 Ml IVPB PRN PRN Hypoglycemia Protocol Insulin Aspart 2 - 5 units 06/20/25 08:00 Insulin Aspart (*Bkc) 100 Units/Ml SUB-Q TIDWM [facility] Protocol Insulin Aspart 1 - 2 units 06/20/25 21:00 Insulin Aspart (*Bkc) 100 Units/Ml SUB-Q HS [facility] Protocol Ipratropium [place] 0.5 mg 06/20/25 02:00 06/20/25 01:33 Ipratropium Br 0.02% Inh Soln 0.5 Mg/2.5 Ml Vial INHALATION 0.5 mg Q6HRT [facility] Administration Metoprolol Tartrate 25 mg 06/20/25 09:00 Metoprolol Tartrate 25 Mg Tablet PO Q12HR [facility] Perflutren Lipid Microsphere 0 ml 06/19/25 21:26 Perflutren Lipid Microspheres 1.5 Ml Vial Diluted To 10 Ml Total Volume IV PUSH 06/22/25 21:26 ONCE PRN adequate visualization Protocol Radiology Results: ITS Impressions Chest X-Ray 06/19/25 17:04 Impression: CHF Labs Labs: Laboratory Results - last 24 hr 06/19/25 06/19/25 06/20/25 16:39 18:36 05:11 WBC 9.6 6.3 RBC 4.07 L 3.77 L Hgb 13.2 12.3 Hct 41.0 37.3 MCV 100.7 H 98.9 MCH 32.4 32.6 MCHC 32.2 33.0 RDW 14.3 14.1 Plt Count 178 165 MPV 11.3 H 11.4 H Immature Gran % (Auto) 0.5 Neut % (Auto) 81.3 H Lymph % (Auto) 14.4 L [place] % (Auto) 2.7 Eos % (Auto) 0.6 Baso % (Auto) 0.5 Lymph # (Auto) 1.38 [place] # (Auto) 0.3 Eos # (Auto) 0.1 Baso # (Auto) 0.1 Abs Immat Gran (auto) 0.05 H Absolute Neuts (auto) 7.8 H Absolute Nucleated RBC 0.000 Nucleated RBC % 0.0 PT 13.4 INR 1.0 APTT 33.1 Sodium 135 L 135 L Potassium 4.7 5.1 H Chloride 105 105 Carbon Dioxide 20 L 20 L Anion Gap 10 10 BUN 46 H D 51 H Creatinine 2.26 H 2.28 H Estim Creat Clear Calc 20 20 Estimated GFR 21 L 21 L Glucose 211 H 198 H Calcium 9.1 8.6 Magnesium 2.4 H 2.4 H Total Bilirubin 0.6 0.4 AST 38 H 29 ALT 27 23 Alkaline Phosphatase 131 H 114 Total Protein 7.6 6.9 Albumin 4.1 3.7 TSH (Reflex) 1.090 06/20/25 06:06 WBC RBC Hgb Hct MCV MCH MCHC RDW Plt Count MPV Immature Gran % (Auto) Neut % (Auto) Lymph % (Auto) [place] % (Auto) Eos % (Auto) Baso % (Auto) Lymph # (Auto) [place] # (Auto) Eos # (Auto) Baso # (Auto) Abs Immat Gran (auto) Absolute Neuts (auto) Absolute Nucleated RBC Nucleated RBC % PT 14.4 INR 1.1 APTT 106.6 H Sodium Potassium Chloride Carbon Dioxide Anion Gap BUN Creatinine Estim Creat Clear Calc Estimated GFR Glucose Calcium Magnesium Total Bilirubin AST ALT Alkaline Phosphatase Total Protein Albumin TSH (Reflex) Quality VTE Prophylaxis VTE prophylaxis: pharmacologic ordered (Heparin gtt)
[2025-06-20] MEDS: ACETAMINOPHEN 500 MG TABLET 1000 MG PO ×3 (08:51→22:37)
[2025-06-20] MEDS: METOPROLOL TARTRATE 25 MG TABLET PO (08:51)
--- NOTE | 2025-06-20 09:50 | WPCEDHO ---
ED Hand Off Checklist All vitals saved: yes IV Site documented: yes All med administrations documented: yes Triage Note Triage Note Pt. to ED from home by [facility] 06/19/25 16:14 EMS. Pt. has COPD and asthma. Reports increased SOB since yesterday. Wears 1L NC PRN at home. When EMS arrived pt. 91% on RA. 125mg Solumedrol and 2x duoneb breathing treatments given en route. Pt. reports improvement in SOB upon arrival to [place]. Allergies naproxen Adverse Reaction (Verified 02/10/25 14:38) Itching Current Diagnoses Unspecified atrial fibrillation (06/19/25) Heart failure, unspecified (06/19/25) Chronic obstructive pulmonary disease, unspecified (06/19/25) Acute kidney failure, unspecified (06/19/25) Chronic kidney disease, stage 3b (06/19/25) Family History (Last Reviewed 06/19/25 @ 16:41 by Yoandy Villa DO) Mother Family history of renal failure Diabetes mellitus Hypertension Sibling Heart disease Diabetes mellitus Father Diabetes mellitus Hypertension Other Family history of coronary artery disease Family history of obesity Active Medications including assessments/comments Acetaminophen (Acetaminophen 500 Mg Tablet) 1,000 mg PO TID PRN PRN Reason: Mild Pain (1-3) or Fever Last Admin: 06/20/25 08:51 Dose: 1,000 mg Documented By: ROMÁN [facility] Pain/Fever Assessment Document 06/20/25 08:51 ROMÁN (Rec: 06/20/25 08:51 ROMÁN [id number]) Administration Reason Administration Pain Reason Pain Pain Evaluation Assessment Pain Scale Used Numeric (1 - 10) Order Parameters Order Parameters for Pain Level 7-10 (Severe) Administering this Pain Med Self Report Pain Assessment Reported Pain Level 9 Pain Score Pain Score 9: Self Report Admin: 06/19/25 23:56 Dose: 1,000 mg Documented By: SHANELLE [facility] Pain/Fever Assessment Document 06/19/25 23:56 SHANELLE (Rec: 06/19/25 23:57 SHANELLE [id number]) Administration Reason Administration Pain Reason Pain Pain Evaluation Assessment Pain Scale Used Numeric (1 - 10) Self Report Pain Assessment Reported Pain Level 5 Pain Score Pain Score 5: Self Report Re-Assess: [facility] Pain/Fever Reassessment Document 06/20/25 07:05 ROMÁN (Rec: 06/20/25 07:53 KNW [id number]) Reason for Administratin Reason for Pain Administration Pain Scale Pain Scale Used Numeric (1 - 10) Self Report Pain Assessment Reported Pain Level 9 Pain Score Pain Score 9: Self Report Heparin Sodium/Dextrose (Heparin Sodium/D5w 100 Units/Ml) 25,000 units in 250 mls @ 11 mls/hr IV CONT .[id number] DAVID; Protocol Last Titration: 06/20/25 06:43 Dose: 1,100 units/hr, 11 mls/hr Documented By: JERILYN Co-signed By: ANTELMO Infusion/Titration Document 06/20/25 06:43 ACS (Rec: 06/20/25 06:45 ACS [id number]) Co-signed By Chichi Rothman RN Intake IV Site Peripheral Access Left Forearm Intake 130.8 Cumulative Intake ( 130.8 bag) Cumulative Intake ( 130.8 Rx) Container Volume 119.2 Waste Amount 0 Dosing Dose Rate 1,100 Infusion Rate 11 Cumulative Dose 23588 Increase/Decrease Decreased Elapsed Time Elapsed Time ( 10h 54m minutes) Heparin Infusion Assessment Document 06/20/25 06:43 ACS (Rec: 06/20/25 06:45 ACS [id number]) Co-signed By Chichi Rothman RN Heparin Infusion Assessment Heparin Infusion Titrated - PTT Verified and Dose Adjusted per Action Guidelines Admin: 06/19/25 19:49 Dose: 1,200 units/hr, 12 mls/hr Documented By: SHANELLE Co-signed By: ACS Infusion/Titration Document 06/19/25 19:49 SHANELLE (Rec: 06/19/25 19:49 SHANELLE [id number]) Co-signed By Lakeshia Rowan RN Intake IV Site Peripheral Access Left Forearm Container Volume 250 Waste Amount 0 Dosing Dose Rate 1,200 Infusion Rate 12 Increase/Decrease Started Elapsed Time Elapsed Time ( 0m minutes) Heparin Infusion Assessment Document 06/19/25 19:49 SHANELLE (Rec: 06/19/25 19:49 SHANELLE [id number]) Co-signed By Lakeshia Rowan RN Heparin Infusion Assessment Heparin Infusion Initiated Action MAR Platelet Monitoring Document 06/19/25 19:49 SHANELLE (Rec: 06/19/25 19:49 SHANELLE [id number]) Co-signed By Lakeshia Rowan RN Platelet Count Verified Platelet Count Yes Verified Insulin Aspart (Insulin Aspart (*Bkc) 100 Units/Ml) 2 - 5 units SUB-Q TIDWM [facility]; Protocol Last Admin: 06/20/25 08:50 Dose: Not Given Documented By: ROMÁN Non-Admin Reason: No Dose Required Ipratropium [place] (Ipratropium Br 0.02% Inh Soln 0.5 Mg/2.5 Ml Vial) 0.5 mg INHALATION Q6HRT [facility] Last Admin: 06/20/25 08:10 Dose: 0.5 mg Documented By: MISTY MAR Nebulizer Assessment Document 06/20/25 08:10 RES (Rec: 06/20/25 08:10 RES [id number]) Updraft Nebulizer Treatment Method Mask Treatment Tolerance Good Admin: 06/20/25 01:33 Dose: 0.5 mg Documented By: MONTAAN MAR Nebulizer Assessment Document 06/20/25 01:33 [facility] (Rec: 06/20/25 01:33 [facility] [id number]) Updraft Nebulizer Treatment Method Mask Treatment Tolerance Good Metoprolol Tartrate (Metoprolol Tartrate 25 Mg Tablet) 25 mg PO Q12HR [facility] Last Admin: 06/20/25 08:51 Dose: 25 mg Documented By: ROMÁN MAR Pulse Assessment Document 06/20/25 08:51 ROMÁN (Rec: 06/20/25 08:51 [place] [id number]) Pulse Pulse Rate (60-100) 82 Rhythm Regular Administered/Completed Medications Discontinued Medications Diltiazem HCl (Diltiazem Hcl Inj 25 Mg/5 Ml Vial) 15 mg IV PUSH ONCE STA Stop: 06/19/25 16:38 Last Admin: 06/19/25 17:00 Dose: 15 mg Documented By: SHANELLE Heparin Sodium (Porcine) (Heparin Sodium 5,000 Units/Ml Vial) 5,500 units 80 units/kg (7000 units) IV PUSH ONCE ONE Stop: 06/19/25 19:16 Last Admin: 06/19/25 19:49 Dose: 5,500 units Documented By: SHANELLE Co-signed By: JERILYN Sodium Chloride (Normal Saline Iv) 1,000 mls @ 999 mls/hr IV CONT .Q1H1M STA Stop: 06/19/25 20:03 Last Infusion: 06/19/25 20:54 Dose: Infused Documented By: Admin: 06/19/25 19:49 Dose: 999 mls/hr Documented By: SHANELLE Ceftriaxone Sodium 2 gm/ (Sodium Chloride) 100 mls @ 200 mls/hr IVPB ONCE ONE Stop: 06/19/25 20:00 Last Infusion: 06/19/25 20:35 Dose: Infused Documented By: Admin: 06/19/25 19:48 Dose: 200 mls/hr Documented By: SHANELLE Doxycycline Hyclate 100 mg/ (Sodium Chloride) 100 mls @ 100 mls/hr IVPB ONCE ONE Stop: 06/19/25 20:30 Last Infusion: 06/19/25 23:42 Dose: Infused Documented By: Admin: 06/19/25 22:40 Dose: 100 mls/hr Documented By: SHANELLE Metoprolol Tartrate (Metoprolol Tartrate Inj 5 Mg/5 Ml Vial) Confirm Administered Dose 5 mg .ROUTE .STK-MED ONE Stop: 06/20/25 00:07 Last Admin: 06/20/25 00:10 Dose: Not Given Documented By: SHANELLE Non-Admin Reason: Duplicate Dose Metoprolol Tartrate (Metoprolol Tartrate Inj 5 Mg/5 Ml Vial) 5 mg IV PUSH ONCE ONE Stop: 06/20/25 00:10 Last Admin: 06/20/25 00:10 Dose: 5 mg Documented By: SHANELLE Interventions/Assessments IV / Saline Lock, Insert Start: 06/19/25 16:20 Freq: STAT Status: Active Protocol: Document 06/19/25 16:37 CMM (Rec: 06/19/25 16:38 CMM [id number]) IV Assessment Peripheral Access Right Forearm IV Catheter Access Initiated IV Insertion Date 06/19/25 IV Insertion Time 16:38 Catheter Gauge 20 IV Insertion 1 Attempts IV Site Assessment WNL IV Care and WNL Maintenance Peripheral Access Left Forearm IV Site Assessment WNL IV Care and WNL Maintenance PA: Cardiovascular Assessment Start: 06/19/25 16:04 Freq: Status: Active Protocol: Document 06/19/25 16:21 KJT (Rec: 06/19/25 16:23 KJT [id number]) Cardiovascular Assessment Skin Description Dry Jugular Vein None Distention PA: Respiratory Assessment Start: 06/19/25 16:04 Freq: Status: Active Protocol: Document 06/19/25 16:21 KJT (Rec: 06/19/25 16:23 KJT [id number]) Respiratory Assessment Symptoms Congestion,Cough,Shortness of Breath at Rest,Shortness of Breath With Exertion Effort Labored,Pursed Lip,Short of Breath,Spontaneous Pattern Tachypnea Depth Normal Chest Expansion Symmetrical Cough Description Acute,Productive Cough Frequency Intermittent Sputum Amount Small Sputum Color Clear Oxygen Delivery Oxygen Delivery Room Air Last Vital Signs Temperature 97.6 F 06/19/25 16:14 Pulse Rate 82 06/20/25 09:01 Respiratory Rate 17 06/20/25 09:01 Pulse Oximetry 92 06/20/25 09:01 Blood Pressure 186/71 H 06/20/25 09:01 Blood Pressure Mean 105 06/20/25 09:01 Blood Pressure Position Sitting 06/19/25 16:14 Oxygen Delivery Nasal Cannula 06/20/25 01:34 Oxygen Flow Rate 2 06/20/25 01:34 Fraction of Inspired Oxygen 28 06/20/25 01:34 Weight 90 kg 06/19/25 16:14 Last Result - Abnormals Only RBC 3.77 M/mm3 (4.2-5.4) L 06/20/25 05:11 MCV 100.7 fl (80-100) H 06/19/25 18:36 MPV 11.4 fl (7.4-10.4) H 06/20/25 05:11 Neut % (Auto) 81.3 % (45.5-73.1) H 06/19/25 18:36 Lymph % (Auto) 14.4 % (18.3-44.2) L 06/19/25 18:36 Abs Immat Gran (auto) 0.05 K/mm3 (0.00-0.031) H 06/19/25 18:36 Absolute Neuts (auto) 7.8 K/mm3 (1.3-6.7) H 06/19/25 18:36 APTT 106.6 Seconds (22.3-36.8) H 06/20/25 06:06 Sodium 135 mmol/L (137-145) L 06/20/25 05:11 Potassium 5.1 mmol/L (3.4-5.0) H 06/20/25 05:11 Carbon Dioxide 20 mmol/L (22-30) L 06/20/25 05:11 BUN 51 mg/dL (7-17) H 06/20/25 05:11 Creatinine 2.28 mg/dL (0.7-1.0) H 06/20/25 05:11 Estimated GFR 21 (59-) L 06/20/25 05:11 Glucose 198 mg/dL (65-110) H 06/20/25 05:11 POC Capillary Glucose 179 mg/dl (65-105) H 06/20/25 08:42 Magnesium 2.4 mg/dL (1.6-2.3) H 06/20/25 05:11 AST 38 U/L (14-36) H 06/19/25 16:39 Alkaline Phosphatase 131 U/L (38-126) H 06/19/25 16:39 Most Recent Suicide Severity Rating Suicide Severity Rating NO RISK INDICATED 06/19/25 16:14
--- NOTE | 2025-06-20 11:10 | ECG_ITS ---
Test Date: 2025-06-20 11:25:15 Measurements Intervals [place] Rate: 67 P: 64 VA: 179 QRS: -63 QRSD: 149 T: -5 QT: 483 QTc: 512 Interpretive Statements SINUS RHYTHM WITH OCCASIONAL VENTRICULAR PREMATURE COMPLEXES RIGHT BUNDLE BRANCH BLOCK LEFT ANTERIOR FASCICULAR BLOCK Electronically Signed On 06-20-2025 11:28:24 INCUBATOR MACHINE OPERATOR by Raul Kevin D.O
[2025-06-20] MEDS: FLUTICASONE/UMECLIDIN/VILANTER 100-62.5-25 MCG ELLIPTA 1 PUFF INHALATION (11:53)
--- NOTE | 2025-06-20 11:56 | P.CONCA_ITS ---
Assessment and Plan Assessment and plan (1) Atrial fibrillation with rapid ventricular response: Code(s): I48.91 - Unspecified atrial fibrillation Status: Acute Assessment and Plan: Back in sinus rhythm. [id number] 5. On heparin drip. Upon discharge will change heparin to Eliquis 2.5 mg BID. Start Sotalol 40 mg BID. Monitor EKG. Obtain echo. (2) CAD (coronary artery disease): Qualifiers: Coronary Disease-Associated Artery/Lesion type: unspecified vessel or lesion type [place] vs. transplanted heart: unspecified whether [place] or transplanted heart Associated angina: unspecified whether angina present Q ualified Code(s): I25.10 - Atherosclerotic heart disease of [place] coronary artery without angina pectoris Code(s): I25.10 - Atherosclerotic heart disease of [place] coronary artery without angina pectoris Status: Acute Assessment and Plan: Stable. (3) Hypertension: Qualifiers: Hypertension type: essential hypertension Qualified Code(s): I10 - Essential (primary) hypertension Code(s): I10 - Essential (primary) hypertension Status: Acute Assessment and Plan: High. Resume home meds. Monitor BP. (4) Hyperlipidemia: Qualifiers: Hyperlipidemia type: mixed hyperlipidemia Qualified Code(s): E78.2 - Mixed hyperlipidemia Code(s): E78.5 - Hyperlipidemia, unspecified Status: Acute Assessment and Plan: On Atorvastatin. (5) COPD (chronic obstructive pulmonary disease): Code(s): J44.9 - Chronic obstructive pulmonary disease, unspecified Status: Acute (6) CHF (congestive heart failure): Qualifiers: Heart failure chronicity: unspecified Heart failure type: unspecified Qualified Code(s): I50.9 - Heart failure, unspecified Code(s): I50.9 - Heart failure, unspecified Status: Acute History of Present Illness History of Present Illness Consult date/time: 06/20/25 11:56 Reason For Visit: COPD Exacerbation, AFib with RVR Narrative: 75 yr old woman who is my regular cardiology and a patient of Dr. Birch presents to ER with sob. She has a history of CAD, MS, DM, Hypertension, dyslipidemia, COPD on oxygen at 1-2 l/m, DENNIS. She reports having sob and was found to be in new onset atrial fibrillation and has some CHF. Reports she was hospitalized recently at [facility] with bradycardia and hypertension and DEBBIE. She is limited at walking 2 blocks due to LAW. She quit smoking in January 2023. Denies chest pain, sob, orthopnea, PND, edema, palpitations, dizziness. Cardiovascular Procedures Rn Call Center:: 10/09/[address] C [address] [place] [address] Stevenson: LCx stent. 2 prior stents at [facility]. Electrophysiology:: 11/13/23 EKG: Sinus bradycardia at 49 bpm, RBBB. 07/20/21 EKG: Sinus rhythm, RAD, RBBB. Review of Systems 2 Review of Systems: All systems reviewed & are unremarkable except as noted in HPI and below Constitutional: Constitutional: Reports as per HPI, Denies chills and Denies fever(s) Cardiovascular: Cardiovascular: Reports as per HPI, Denies chest pain and Denies irregular heart rhythm Respiratory: Respiratory: Reports as per HPI and Reports dyspnea Gastrointestinal: Gastrointestinal: Reports as per HPI and Denies abdominal pain Genitourinary: Genitourinary: Reports as per HPI and Denies dysuria Musculoskeletal: Musculoskeletal: Reports as per HPI Neurologic: Reports as per HPI, Denies dizziness and Denies syncope [facility] Past Medical History Medical History Chronic kidney disease, stage 3a Screening for breast cancer Fluid in knee Osteoarthritis of left knee Hemoglobin A1c less than 7.0% 08/29/20 A1c 5.9 Joint effusion of knee Left knee pain Pulmonary nodule Eczema Urine test positive for microalbuminuria Hyperkalemia Allergies Leukocytosis Complications of gastric bypass surgery 1994 Cholecystectomy planned Bradycardia Hypertension CAD (coronary artery disease) Hypothyroidism Gout Sleep apnea Chicken pox Migraine Type 2 diabetes mellitus Bulging disc Osteoarthritis Hernia Heart disease Hyperlipidemia Myocardial infarction COPD (chronic obstructive pulmonary disease) Family History Family History Mother Family history of renal failure Diabetes mellitus Hypertension Sibling Heart disease Diabetes mellitus Father Diabetes mellitus Hypertension Other Family history of coronary artery disease Family history of obesity Social History Social History Smoking status: Former smoker Tobacco type: cigarettes Smoking end date: 08/04/17 Alcohol intake: never Do You Feel Safe in your Home?: Yes Lack of Transportation: No Lack of Food: Sometimes True Current Housing: I Have Housing Concerned About Future Housing: No Difficulty Paying Gas/Electric Bills: No Difficulty Paying for Meds: No Currently Unemployed: No Education: Grade School Difficulty w/ Childcare or Family Care: No Gender identity (if verbalized by the patient): Female Meds Home Medications and Allergies Home Medications ?Medication ?Instructions ?Recorded ?Confirmed ?Type aspirin 81 mg tablet,delayed 81 mg PO DAILY 07/29/19 1 08/20/24 History release (Adult Low Dose Aspirin) dapagliflozin propanediol 10 mg 10 mg PO DAILY 4 06/20/25 History tablet (Farxiga) losartan 100 mg tablet 100 mg PO DAILY #30 tabs 06/20/25 Rx fluticasone propionate 50 1 spray intranasal Q12H #48 grams 02/25/25 06/20/25 Rx mcg/actuation nasal spray,suspension (Flonase Allergy Relief) hydrochlorothiazide 12.5 mg tablet See Rx Instructions .Route 02/25/25 06/20/25 Rx .COMPLEX #180 tabs amlodipine 10 mg tablet See Rx Instructions .Route 0 03/14/25 06/20/25 Rx .COMPLEX #90 tabs atorvastatin 80 mg tablet See Rx Instructions .Route 0 03/14/25 06/20/25 Rx .COMPLEX #90 tabs isosorbide mononitrate 60 mg See Rx Instructions .Maribeth betts 03/14/25 06/20/25 Rx tablet,extended release 24 hr .COMPLEX #90 tabs levothyroxine 100 mcg tablet See Rx Instructions .Maribeth betts 03/14/25 06/20/25 Rx .COMPLEX #90 tabs allopurinol 100 mg tablet 100 mg PO TID #270 tabs 04/0406/20/25 Rx albuterol sulfate 90 mcg/actuation See Rx Instructions .Route 05/02/25 06/20/25 Rx aerosol inhaler .COMPLEX #42.5 grams hydralazine 50 mg tablet 50 mg PO TID #270 tabs 05/0206/20/25 Rx metformin 1,000 mg tablet 1,000 mg PO DAILY #90 tabs 1 06/20/25 Rx fluticasone fur. 100 mcg-umeclid 1 inh inhalation Q24H #60 ea 05/27/25 06/20/25 Rx 62.5 mcg-vilant 25 mcg inhalat.powder (Trelegy Ellipta) Allergies Allergy/AdvReac Type Severity Reaction Status Date / Time naproxen AdvReac Itching Verified 02/10/25 14:38 Vital Signs Vital Signs - 24 hr 06/19/25 16:14 06/19/25 16:21 06/20/25 00:10 Temperature 97.6 F Pulse Rate 157 H 147 H Respiratory Rate 26 H Blood Pressure 162/73 H Pulse Oximetry 94 Oxygen Delivery Room Air Room Air Oxygen Flow Rate Fraction of Inspired Oxygen 06/20/25 01:34 06/20/25 01:36 06/20/25 01:45 Temperature Pulse Rate 68 69 67 Respiratory Rate 20 20 20 Blood Pressure Pulse Oximetry 94 Oxygen Delivery Nasal Cannula Oxygen Flow Rate 2 Fraction of Inspired Oxygen 28 06/20/25 03:37 06/20/25 03:40 06/20/25 03:47 Temperature Pulse Rate 61 62 65 Respiratory Rate 20 21 H 18 Blood Pressure 162/54 H 162/54 H 169/56 H Pulse Oximetry 94 94 93 Oxygen Delivery Oxygen Flow Rate Fraction of Inspired Oxygen 06/20/25 04:03 06/20/25 04:17 06/20/25 04:32 Temperature Pulse Rate 67 62 65 Respiratory Rate 18 21 H 20 Blood Pressure 166/76 H 164/54 H 169/53 H Pulse Oximetry 93 94 97 Oxygen Delivery Oxygen Flow Rate Fraction of Inspired Oxygen 06/20/25 04:47 06/20/25 05:02 06/20/25 05:17 Temperature Pulse Rate 59 L 63 65 Respiratory Rate 8 L 20 16 Blood Pressure 164/55 H 161/60 H 189/53 H Pulse Oximetry 94 94 94 Oxygen Delivery Oxygen Flow Rate Fraction of Inspired Oxygen 06/20/25 05:33 06/20/25 06:02 06/20/25 06:17 Temperature Pulse Rate 60 75 67 Respiratory Rate 14 13 18 Blood Pressure 185/75 H 158/92 H 184/43 H Pulse Oximetry 95 94 93 Oxygen Delivery Oxygen Flow Rate Fraction of Inspired Oxygen 06/20/25 06:48 06/20/25 07:01 06/20/25 07:02 Temperature Pulse Rate 65 71 71 Respiratory Rate 17 19 20 Blood Pressure 188/60 H 199/59 H 199/59 H Pulse Oximetry 98 95 94 Oxygen Delivery Oxygen Flow Rate Fraction of Inspired Oxygen 06/20/25 07:17 06/20/25 07:55 06/20/25 08:05 Temperature Pulse Rate 66 75 73 Respiratory Rate 16 20 20 Blood Pressure 179/54 H Pulse Oximetry 94 Oxygen Delivery Oxygen Flow Rate Fraction of Inspired Oxygen 06/20/25 08:46 06/20/25 08:51 06/20/25 09:01 Temperature Pulse Rate 78 82 82 Respiratory Rate 20 17 Blood Pressure 193/62 H 186/71 H Pulse Oximetry 91 92 Oxygen Delivery Oxygen Flow Rate Fraction of Inspired Oxygen 06/20/25 11:54 Temperature Pulse Rate Respiratory Rate Blood Pressure Pulse Oximetry 88 L Oxygen Delivery Nasal Cannula Oxygen Flow Rate 3 Fraction of Inspired Oxygen Exam 2 Const: General: cooperative, healthy appearing and comfortable Resp: Auscultation: no crackles, no rales, no rhonchi, no wheezes and diminished lung sounds Cardio: Rate: regular rate Rhythm: regular rhythm Heart sounds: no murmurs Peripheral pulses: dorsalis pedis present GI: GI Palp: No abdominal tenderness and Yes Soft to palpation Neuro: General: oriented to person, oriented to place and oriented to time Extrem: Right lower extremity: no edema Left lower extremity: no edema Results Labs and Meds 06/20/25 05:11 06/20/25 05:11 Lab results: Cardiac Enzymes 06/19/25 06/20/25 Range/Units 16:39 05:11 AST 38 H 29 (14-36) U/L Coagulation 06/19/25 06/20/25 Range/Units 16:39 06:06 PT 13.4 14.4 (11.1-14.7) Seconds APTT 33.1 106.6 H (22.3-36.8) Seconds CBC 06/19/25 06/20/25 Range/Units 18:36 05:11 WBC 9.6 6.3 (4.5-10.0) K/mm3 RBC 4.07 L 3.77 L (4.2-5.4) M/mm3 Hgb 13.2 12.3 (12.0-15.0) g/dL Hct 41.0 37.3 (37.0-47.0) % Plt Count 178 165 (150-375) k/mm3 Lymph # (Auto) 1.38 (0.9-3.2) K/mm3 [place] # (Auto) 0.3 (0.1-0.6) K/mm3 Eos # (Auto) 0.1 (0-0.3) K/mm3 Baso # (Auto) 0.1 (0.0-0.1) K/mm3 Comprehensive Metabolic Panel 06/19/25 06/20/25 Range/Units 16:39 05:11 Sodium 135 L 135 L (137-145) mmol/L Potassium 4.7 5.1 H (3.4-5.0) mmol/L Chloride 105 105 (98-107) mmol/L Carbon Dioxide 20 L 20 L (22-30) mmol/L BUN 46 H D 51 H (7-17) mg/dL Creatinine 2.26 H 2.28 H (0.7-1.0) mg/dL Glucose 211 H 198 H (65-110) mg/dL Calcium 9.1 8.6 (8.4-10.2) mg/dL AST 38 H 29 (14-36) U/L ALT 27 23 (6-35) U/L Alkaline Phosphatase 131 H 114 (38-126) U/L Total Protein 7.6 6.9 (6.3-8.2) g/dL Albumin 4.1 3.7 (3.5-5.1) g/dL Intake and Output 06/19/25 06/20/25 06/20/25 23:59 07:59 15:59 Intake Total 1200 130.8 Balance 1200 130.8 Intake: IV 1200 130.8 Heparin Sod/D5w 100 Units/ml 25 130.8 ,000 units In 250 ml @ 1,200 UNITS/HR 12 mls/hr IV CONT . [id number] DAVID Rx#:[id number] Sodium Chloride 0.9% IV 1,000 1000 ml @ 999 mls/hr IV CONT .Q1H1M STA Rx#:[id number] Doxycycline IV 100 mg In Sodium 100 Chloride 0.9% IV 100 ml @ 100 mls/hr IVPB ONCE ONE Rx#: [id number] cefTRIAXone 2 gm In Sodium 100 Chloride 0.9% IV 100 ml @ 200 mls/hr IVPB ONCE ONE Rx#: [id number] Patient Weight 06/20/25 23:59 Weight 95.5 kg
[2025-06-20 12:10] LABS: Partial Thromboplastin Time 56.7 Seconds (22.3-36.8)
[2025-06-20] MEDS: PERFLUTREN LIPID MICROSPHERES 1.5 ML VIAL DILUTED TO 10 ML TOTAL VOLUME IV PUSH (12:30)
--- NOTE | 2025-06-20 12:44 | IVDEFINITY ---
Prior to administration of IV Definity the patient was educated on the risks and benefits of the imaging enhancing agent including potential adverse side effects. The patient verbalized understanding. Allergies were verified. No exclusion criteria were identified and at least one of the following inclusion criteria were met: 1) physician request, 2) patient technically difficult to image (per the [place] [employer]chocardi[employer] guidelines of two or more segments not discernable within the apical view), or 3) questionable left ventricular function. ?
[2025-06-20] MEDS: ASPIRIN 81 MG ENTERIC TABLET PO (12:58)
[2025-06-20] MEDS: ATORVASTATIN 40 MG TABLET 80 MG PO (12:59)
[2025-06-20] MEDS: ISOSORBIDE MONONITRATE 60 MG TAB.ER.24H PO (12:59)
[2025-06-20] MEDS: LOSARTAN POTASSIUM 100 MG TABLET PO (13:00)
[2025-06-20] MEDS: FLUTICASONE PROPIONATE 0.05% NA SPR 16 GM BTL (*BKC) 1 SPRAY NASAL ×2 (13:06→20:32)
[2025-06-20] MEDS: INSULIN ASPART (*BKC) 100 UNITS/ML SUB-Q (13:30)
[2025-06-20] MEDS: HEPARIN SOD/D5W 100 UNITS/ML 25,000 UNITS/250 ML BAG 12 UNITS IV CONT (19:12)
[2025-06-20 19:30] LABS: Partial Thromboplastin Time 32.3 Seconds (22.3-36.8)
--- NOTE | 2025-06-20 22:25 | ECG_ITS ---
Test Date: 2025-06-20 22:31:53 Measurements Intervals [place] Rate: 57 P: 50 MA: 159 QRS: -63 QRSD: 150 T: -14 QT: 503 QTc: 493 Interpretive Statements SINUS BRADYCARDIA RIGHT BUNDLE BRANCH BLOCK [120+ ms QRS DURATION, UPRIGHT V1, 40+ ms S IN I/aVL/V4/V5/V6] LEFT ANTERIOR FASCICULAR BLOCK [QRS AXIS <= -45, QR IN I, RS IN II] SEPTAL MYOCARDIAL INFARCTION [40+ ms Q WAVE IN V1/V2], PROBABLY OLD Compared to ECG 06/20/2025 11:25:15 Myocardial infarct finding now present Sinus rhythm no longer present Ventricular premature complex(es) no longer present Electronically Signed On 06-21-2025 09:00:09 VICE PRESIDENT MEDIA RELATIONS by Neymar Copeland M.D.
[2025-06-21] VITALS (35 sets, daily range): BP systolic 143–187; BP diastolic 42–77; PULSE 42–78; RESP 19–25; TEMP 36.6–37.9; O2SAT 87–95
--- NOTE | 2025-06-21 | ECHO_ITS ---
Patient Info Name: Vashti Littlejohn Age: 75 years : 1950 Gender: Female Ht: 62 in Wt: 210 lbs BSA: 2.09 m2 HR: 52 bpm BP: 187 / 61 mmHg Technical Quality: Good Exam Date: 06/21/2025 3:09 PM Patient Status: I Admit Date: 06/19/2025 Exam Type: CA echo limited w bubble study Limited two-dimensional transthoracic echocardiogram is performed with agitated saline. Staff Referring Physician: Haris Pinzon MD Jumpbasting Collar Baster: Paulo Chairez III Attending Provider: Shirley Raymundo Contrast/Agitated Saline Contrast/Ag. Saline: Agitated Saline Amount: 16.00 ml Administered By: Paulo Chairez III Existing IV Access: Yes IV Access Condition: patent with no signs of infiltration Summary 1. BUBBLE STUDY APPEARS POSITIVE IN BOTH CLIPS TOWARDS END. 2. Limited echocardiogram. 3. Left ventricular chamber dimension is normal. 4. Left ventricular systolic function is normal, estimated at 65-70. 5. The left ventricular diastolic function is indeterminate as it was not assessed. 6. Interatrial septum not well visualized by 2D and agitated saline imaging. 7. Agitated saline injection with and without valsalva maneuver opacified right side cardiac chambers with a couple of bubbles shunt to left side cardiac chambers after 4-5 seconds. This suggests either tiny patent foramen ovale or they are transpulmonary bubbles that made it through. Left Ventricle Left ventricular chamber dimension is normal. Left ventricular systolic function is normal, estimated at 65-70. The left ventricular diastolic function is indeterminate as it was not assessed. Limited echocardiogram. Atrial Septum Interatrial septum not well visualized by 2D and agitated saline imaging. Agitated saline injection with and without valsalva maneuver opacified right side cardiac chambers with a couple of bubbles shunt to left side cardiac chambers after 4-5 seconds. This suggests either tiny patent foramen ovale or they are transpulmonary bubbles that made it through. Report Signatures Amended by Chon Castro DO on 06/22/2025 06:19 AM
[2025-06-21] MEDS: diazePAM INJ (*CRX) 10 MG/2 ML SYRINGE 5 MG IV PUSH (00:18)
[2025-06-21] MEDS: IPRATROPIUM BR 0.02% INH SOLN 0.5 MG/2.5 ML VIAL INHALATION ×2 (01:34→07:40)
[2025-06-21 01:55] LABS: Hematocrit 37.9 % (37.0-47.0); Hemoglobin 12.2 g/dL (12.0-15.0); Immature Granulocyte Percent A 0.4 % (0-0.5); Lymphocytes Absolute Auto 1.66 K/mm3 (0.9-3.2); Mean Corpuscular HGB Conc 32.2 g/dl (32-36); Mean Corpuscular Hemoglobin 32.4 pg (26-34); Mean Corpuscular Volume 100.8 fl (80-100); Nucleated Red Blood Cells Absolute Auto 0.000 K/mm3 (0.0-0.012); Nucleated Red Blood Cells Perc 0.0 % (0.0-0.2); Platelet Count Result 184 k/mm3 (150-375); Red Blood Count 3.76 M/mm3 (4.2-5.4); White Blood Count 12.3 K/mm3 (4.5-10.0)
[2025-06-21 02:09] LABS: Partial Thromboplastin Time 46.1 Seconds (22.3-36.8)
[2025-06-21 02:10] LABS: Alanine Aminotransferase 22 U/L (6-35); Albumin Level 3.6 g/dL (3.5-5.1); Alkaline Phosphatase 96 U/L (38-126); Anion Gap 10 mmol/L (4-12); Aspartate Amino Transferase 30 U/L (14-36); Bilirubin,Total 0.5 mg/dL (0.2-1.3); Blood Urea Nitrogen 57 mg/dL (7-17); Calcium 8.7 mg/dL (8.4-10.2); Carbon Dioxide 17 mmol/L (22-30); Chloride 105 mmol/L (98-107); Estimated CRCL calculation 22 ml/min; Estimated Glomerular Filt Rate 23; Glucose 170 mg/dL (65-110); Magnesium 2.5 mg/dL (1.6-2.3); Potassium 4.6 mmol/L (3.4-5.0); Sodium 132 mmol/L (137-145); Total Protein 6.6 g/dL (6.3-8.2)
--- NOTE | 2025-06-21 05:44 | ECG_ITS ---
Test Date: 2025-06-21 05:47:41 Measurements Intervals [place] Rate: 45 P: 59 TN: 159 QRS: -57 QRSD: 154 T: -6 QT: 566 QTc: 493 Interpretive Statements SINUS BRADYCARDIA RIGHT BUNDLE BRANCH BLOCK [120+ ms QRS DURATION, UPRIGHT V1, 40+ ms S IN I/aVL/V4/V5/V6] LEFT ANTERIOR FASCICULAR BLOCK [QRS AXIS <= -45, QR IN I, RS IN II] ABNORMAL ECG Compared to ECG 06/20/2025 22:31:53 Myocardial infarct finding no longer present Electronically Signed On 06-21-2025 09:03:46 OCCUPATIONAL HEALTH NURSING DIRECTOR by Neymar Copeland M.D.
[2025-06-21] MEDS: LEVOTHYROXINE SODIUM 100 MCG TABLET PO (05:58)
[2025-06-21] MEDS: LOSARTAN POTASSIUM 100 MG TABLET PO (07:47)
[2025-06-21] MEDS: ATORVASTATIN 40 MG TABLET 80 MG PO (07:47)
[2025-06-21] MEDS: ISOSORBIDE MONONITRATE 60 MG TAB.ER.24H PO (07:48)
[2025-06-21] MEDS: ASPIRIN 81 MG ENTERIC TABLET PO (07:48)
[2025-06-21] MEDS: FLUTICASONE PROPIONATE 0.05% NA SPR 16 GM BTL (*BKC) 1 SPRAY NASAL ×2 (07:48→20:26)
--- NOTE | 2025-06-21 08:04 | PM.PNCARD ---
Progress Note: A&P Assessment and Plan (1) Atrial fibrillation with rapid ventricular response: Code(s): I48.91 - Unspecified atrial fibrillation Status: Acute Assessment and Plan: Back in sinus rhythm. [id number] 5. On heparin drip. Upon discharge will change heparin to Eliquis 2.5 mg BID. Start 06/20/25 Sotalol 40 mg BID. Monitor EKG. Decrease Sotalol 40 mg in AM given her overnight HR drops to mid 30's bpm. (2) CAD (coronary artery disease): Qualifiers: Coronary Disease-Associated Artery/Lesion type: unspecified vessel or lesion type [place] vs. transplanted heart: unspecified whether [place] or transplanted heart Associated angina: unspecified whether angina present Qualified Code(s): I25.10 - Atherosclerotic heart disease of [place] coronary artery without angina pectoris Code(s): I25.10 - Atherosclerotic heart disease of [place] coronary artery without angina pectoris Status: Acute Assessment and Plan: Stable. (3) Hypertension: Qualifiers: Hypertension type: essential hypertension Qualified Code(s): I10 - Essential (primary) hypertension Code(s): I10 - Essential (primary) hypertension Status: Acute Assessment and Plan: High. Resume home meds. Monitor BP. (4) Hyperlipidemia: Qualifiers: Hyperlipidemia type: mixed hyperlipidemia Qualified Code(s): E78.2 - Mixed hyperlipidemia Code(s): E78.5 - Hyperlipidemia, unspecified Status: Acute Assessment and Plan: On Atorvastatin. (5) COPD (chronic obstructive pulmonary disease): Code(s): J44.9 - Chronic obstructive pulmonary disease, unspecified Status: Acute (6) CHF (congestive heart failure): Qualifiers: Heart failure chronicity: unspecified Heart failure type: unspecified Qualified Code(s): I50.9 - Heart failure, unspecified Code(s): I50.9 - Heart failure, unspecified Status: Acute Assessment and Plan: Appears euvolemic. 06/20/25 Echo: EF 65-70%, mod LVH, significant diastolic dysfunction (E/e' 48), severe LAE, mod MAC/MV calcification, mild MR/TR, RVSP 63 mmHg. Subjective Date/time seen: 06/21/25 08:04 Interval history: She has sob but better than yesterday on higher flow oxygen. Feels warmth to her head. No chest pain. Exam Const: General: cooperative, healthy appearing and comfortable Orientation/consciousness: oriented to person, oriented to place and oriented to time Resp: Auscultation: no crackles, no rales, no rhonchi, no wheezes and diminished lung sounds Cardio: Rate: bradycardic Rhythm: regular rhythm Heart sounds: no murmurs Peripheral pulses: dorsalis pedis present Neuro: General: oriented to person, oriented to place and oriented to time Extrem: Right lower extremity: no edema Left lower extremity: no edema Objective Data Vital Signs Vital Signs: Vital Signs - 24 hr 06/20/25 08:05 06/20/25 08:46 06/20/25 08:51 Temperature Pulse Rate 73 78 82 Respiratory Rate 20 20 Blood Pressure 193/62 H Pulse Oximetry 91 Oxygen Delivery Oxygen Flow Rate Fraction of Inspired Oxygen 06/20/25 09:01 06/20/25 11:54 06/20/25 14:24 Temperature Pulse Rate 82 76 Respiratory Rate 17 22 H Blood Pressure 186/71 H 186/52 H Pulse Oximetry 92 88 L 86 L Oxygen Delivery Nasal Cannula Oxygen Flow Rate 3 Fraction of Inspired Oxygen 06/20/25 14:50 06/20/25 14:56 06/20/25 15:00 Temperature Pulse Rate 63 69 60 Respiratory Rate 20 20 20 Blood Pressure 169/50 H Pulse Oximetry 88 L Oxygen Delivery Oxygen Flow Rate Fraction of Inspired Oxygen 06/20/25 16:00 06/20/25 17:44 06/20/25 20:00 Temperature Pulse Rate 66 Respiratory Rate 22 H Blood Pressure Pulse Oximetry 90 Oxygen Delivery CPAP Autopap Oxygen Flow Rate 6 Fraction of Inspired Oxygen 06/20/25 20:00 06/20/25 20:00 06/20/25 20:10 Temperature 98.3 F Pulse Rate 65 53 L 63 Respiratory Rate 20 20 Blood Pressure 159/48 H Pulse Oximetry 89 L Oxygen Delivery Oxygen Flow Rate Fraction of Inspired Oxygen 06/20/25 20:20 06/20/25 20:20 06/20/25 20:32 Temperature Pulse Rate 64 64 78 Respiratory Rate 24 H 24 H Blood Pressure Pulse Oximetry 93 Oxygen Delivery Autopap Oxygen Flow Rate Fraction of Inspired Oxygen 06/20/25 22:00 06/20/25 22:44 06/20/25 22:58 Temperature Pulse Rate 55 L 54 L 51 L Respiratory Rate 22 H Blood Pressure 191/67 H Pulse Oximetry 92 Oxygen Delivery CPAP Oxygen Flow Rate Fraction of Inspired Oxygen 06/21/25 00:00 06/21/25 00:00 06/21/25 00:00 Temperature 97.8 F Pulse Rate 66 71 Respiratory Rate 21 H Blood Pressure 185/53 H Pulse Oximetry 89 L 88 L Oxygen Delivery High Flow Therapy with Na Oxygen Flow Rate 45 Fraction of Inspired Oxygen 50 06/21/25 00:07 06/21/25 00:12 06/21/25 00:29 Temperature Pulse Rate 66 55 L Respiratory Rate 20 24 H Blood Pressure 183/65 H Pulse Oximetry 89 L 89 L 87 L Oxygen Delivery High Flow Therapy with Na High Flow Therapy with Na CPAP Oxygen Flow Rate 40 45 Fraction of Inspired Oxygen 50 06/21/25 00:35 06/21/25 01:34 06/21/25 01:35 Temperature Pulse Rate 55 L 50 L 50 L Respiratory Rate 24 H 20 20 Blood Pressure Pulse Oximetry 90 90 Oxygen Delivery CPAP CPAP Oxygen Flow Rate Fraction of Inspired Oxygen 06/21/25 02:00 06/21/25 04:00 06/21/25 04:00 Temperature 98.1 F Pulse Rate 43 L 54 L Respiratory Rate 20 Blood Pressure 143/77 H Pulse Oximetry 93 92 Oxygen Delivery CPAP Oxygen Flow Rate 45 Fraction of Inspired Oxygen 50 06/21/25 04:00 06/21/25 04:23 06/21/25 06:00 Temperature Pulse Rate 42 L 52 L 58 L Respiratory Rate 19 Blood Pressure Pulse Oximetry 92 Oxygen Delivery CPAP Oxygen Flow Rate Fraction of Inspired Oxygen 06/21/25 07:38 06/21/25 07:40 06/21/25 07:40 Temperature 97.8 F Pulse Rate 57 L 51 L 44 L Respiratory Rate 22 H 20 19 Blood Pressure 187/61 H Pulse Oximetry 95 94 Oxygen Delivery CPAP Oxygen Flow Rate Fraction of Inspired Oxygen 06/21/25 07:49 06/21/25 07:50 Temperature Pulse Rate 70 64 Respiratory Rate 25 H 22 H Blood Pressure Pulse Oximetry 95 Oxygen Delivery High Flow Therapy with Na Oxygen Flow Rate 45 Fraction of Inspired Oxygen 55 Intake/Output Intake/Output: Intake & Output 06/18/25 06/19/25 06/20/25 06/21/25 23:59 23:59 23:59 23:59 Intake Total 1200 721.6 292.5 Output Total 350 500 Balance 1200 371.6 -207.5 Meds/Results Medications: Active Medications Generic Name Dose Route Start Last Admin Trade Name Freq PRN Reason Stop Dose Admin Acetaminophen 1,000 mg 06/19/25 22:44 06/20/25 22:37 Acetaminophen 500 Mg Tablet PO 1,000 mg TID PRN Administration Mild Pain (1-3) or Fever Allopurinol 100 mg 06/20/25 13:00 06/21/25 07:48 Allopurinol 100 Mg Tablet PO 100 mg TID DAVID Administration Amlodipine Besylate 10 mg 06/20/25 09:00 06/21/25 07:48 Amlodipine Besylate 10 Mg Tablet BY MOUTH 10 mg DAILY DAVID Administration Aspirin 81 mg 06/20/25 09:00 06/21/25 07:48 Aspirin 81 Mg Enteric Tablet PO 81 mg DAILY DAVID Administration Atorvastatin Calcium 80 mg 06/20/25 09:55 06/21/25 07:47 Atorvastatin 40 Mg Tablet PO 80 mg DAILY DAVID Administration Dextrose 12.5 gm 06/19/25 21:30 Dextrose 50% 25 Gm/50 Ml Syringe IV PUSH PRN PRN Hypoglycemia Protocol Fluticasone Propionate 1 spray 06/20/25 09:00 06/21/25 07:48 Fluticasone Propionate 0.05% Na Spr 16 Gm Btl (*Bkc) NASAL 1 spray Q12H DAVID Administration Fluticasone/Umeclidinium/Vilanterol 1 puff 06/20/25 09:00 06/20/25 11:53 Fluticasone/Umeclidin/Vilanter 100-62.5-25 Mcg Ellipta INHALATION 1 puff Q24H DAVID Administration Glucose 15 gm 06/19/25 21:30 Glucose Oral Gel 15 Gm Of Glucse In 37.5 Gm Tube PO PRN PRN Hypoglycemia Protocol Heparin Sodium (Porcine) 5,500 units 06/19/25 19:03 06/21/25 02:12 Heparin Sodium 5,000 Units/Ml Vial IV PUSH 5,500 units PRN PRN Administration aPTT less than 55 seconds Heparin Sodium (Porcine) 2,500 units 06/19/25 19:03 06/20/25 13:30 Heparin Sodium 5,000 Units/Ml Vial IV PUSH 2,500 units PRN PRN Administration aPTT 55 - 70 seconds Hydralazine HCl 50 mg 06/20/25 13:00 06/21/25 07:48 Hydralazine Hcl 50 Mg Tablet PO 50 mg TID [facility] Administration Hydrochlorothiazide 12.5 mg 06/20/25 09:50 06/21/25 07:48 Hydrochlorothiazide 12.5 Mg Capsule PO 12.5 mg DAILY DAVID Administration Heparin Sodium/Dextrose 25,000 units in 250 mls @ 18 mls/hr 06/19/25 19:05 06/21/25 02:10 Heparin Sodium/D5w 100 Units/Ml IV CONT 1,800 units/hr .[id number] DAVID 18 mls/hr Protocol Titration 1,800 UNITS/HR Dextrose 1,000 mls @ 100 mls/hr 06/19/25 21:30 Dextrose 5% 1,000 Ml IVPB PRN PRN Hypoglycemia Protocol Insulin Aspart 2 - 5 units 06/20/25 08:00 06/21/25 07:42 Insulin Aspart (*Bkc) 100 Units/Ml SUB-Q Not Given TIDWM [facility] Protocol Insulin Aspart 1 - 2 units 06/20/25 21:00 06/20/25 20:32 Insulin Aspart (*Bkc) 100 Units/Ml SUB-Q Not Given HS [facility] Protocol Ipratropium [place] 0.5 mg 06/20/25 02:00 06/21/25 07:40 Ipratropium Br 0.02% Inh Soln 0.5 Mg/2.5 Ml Vial INHALATION 0.5 mg Q6HRT [facility] Administration Isosorbide Mononitrate 60 mg 06/20/25 09:50 06/21/25 07:48 Isosorbide Mononitrate 60 Mg Tab.Er.24h PO 60 mg DAILY [facility] Administration Levothyroxine Sodium 100 mcg 06/21/25 06:30 06/21/25 05:58 Levothyroxine Sodium 100 Mcg Tablet PO 100 mcg DAILY@0630 [facility] Administration Losartan Potassium 100 mg 06/20/25 09:00 06/21/25 07:47 Losartan Potassium 100 Mg Tablet PO 100 mg DAILY [facility] Administration Sotalol HCl 40 mg 06/21/25 09:00 Sotalol Hcl 40 Mg Tablet PO DAILY [facility] Radiology Results: ITS Impressions Chest X-Ray 06/19/25 17:04 Impression: CHF Labs Labs: Laboratory Results - last 24 hr 06/20/25 06/20/25 06/20/25 08:42 11:39 11:48 WBC RBC Hgb Hct MCV MCH MCHC RDW Plt Count MPV Immature Gran % (Auto) Neut % (Auto) Lymph % (Auto) [place] % (Auto) Eos % (Auto) Baso % (Auto) Lymph # (Auto) [place] # (Auto) Eos # (Auto) Baso # (Auto) Abs Immat Gran (auto) Absolute Neuts (auto) Absolute Nucleated RBC Nucleated RBC % APTT 56.7 H Sodium Potassium Chloride Carbon Dioxide Anion Gap BUN Creatinine Estim Creat Clear Calc Estimated GFR Glucose POC Capillary Glucose 179 H 223 H Calcium Magnesium Total Bilirubin AST ALT Alkaline Phosphatase Total Protein Albumin 06/20/25 06/20/25 06/20/25 16:50 19:05 20:31 WBC RBC Hgb Hct MCV MCH MCHC RDW Plt Count MPV Immature Gran % (Auto) Neut % (Auto) Lymph % (Auto) [place] % (Auto) Eos % (Auto) Baso % (Auto) Lymph # (Auto) [place] # (Auto) Eos # (Auto) Baso # (Auto) Abs Immat Gran (auto) Absolute Neuts (auto) Absolute Nucleated RBC Nucleated RBC % APTT 32.3 Sodium Potassium Chloride Carbon Dioxide Anion Gap BUN Creatinine Estim Creat Clear Calc Estimated GFR Glucose POC Capillary Glucose 170 H 199 H Calcium Magnesium Total Bilirubin AST ALT Alkaline Phosphatase Total Protein Albumin 06/21/25 06/21/25 01:44 07:38 WBC 12.3 H RBC 3.76 L Hgb 12.2 Hct 37.9 MCV 100.8 H MCH 32.4 MCHC 32.2 RDW 14.2 Plt Count 184 MPV 11.4 H Immature Gran % (Auto) 0.4 Neut % (Auto) 80.9 H Lymph % (Auto) 13.5 L [place] % (Auto) 4.9 Eos % (Auto) 0.1 Baso % (Auto) 0.2 Lymph # (Auto) 1.66 [place] # (Auto) 0.6 Eos # (Auto) 0.0 Baso # (Auto) 0.0 Abs Immat Gran (auto) 0.05 H Absolute Neuts (auto) 9.9 H Absolute Nucleated RBC 0.000 Nucleated RBC % 0.0 APTT 46.1 H Sodium 132 L Potassium 4.6 Chloride 105 Carbon Dioxide 17 L Anion Gap 10 BUN 57 H Creatinine 2.13 H Estim Creat Clear Calc 22 Estimated GFR 23 L Glucose 170 H POC Capillary Glucose 160 H Calcium 8.7 Magnesium 2.5 H Total Bilirubin 0.5 AST 30 ALT 22 Alkaline Phosphatase 96 Total Protein 6.6 Albumin 3.6
[2025-06-21 08:51] LABS: NT Pro B Type Natriuretic Pept 6060 pg/mL (19.9-100)
[2025-06-21 09:07] LABS: Free T4 Free Thyroxine 1.37 ng/dL (0.78-2.19)
[2025-06-21 09:15] LABS: Partial Thromboplastin Time > 200.0 Seconds (22.3-36.8)
[2025-06-21] MEDS: FLUTICASONE/UMECLIDIN/VILANTER 100-62.5-25 MCG ELLIPTA 1 PUFF INHALATION (09:45)
[2025-06-21 09:58] LABS: Alveolar/Arterial O2 Gradient 272.4 mmHg; Fractional Inspired Oxygen 52 %; HCO3 ABG 21.3 mEq/l (22.0-26.0); Oxygen Content ABG 16.6 %vol (16.0-22.0); Oxygen Saturation ABG 90.9 % (95.0-100.0); PCO2 ABG 35.1 mmHg (35.0-45.0); PO2 ABG 59.1 mmHg (80.0-100.0); PO2 FiO2 Ratio Arterial Blood 1.14 %
[2025-06-21 10:00] LABS: Liters per Minute 8.0 LPM; Modified Allen's Test Pass; Site Drawn LEFT RADIAL
--- NOTE | 2025-06-21 10:19 | ECG_ITS ---
Test Date: 2025-06-21 10:26:17 Measurements Intervals [place] Rate: 52 P: 12 NM: 145 QRS: -66 QRSD: 144 T: -15 QT: 500 QTc: 469 Interpretive Statements SINUS BRADYCARDIA WITH OCCASIONAL VENTRICULAR PREMATURE COMPLEXES RIGHT BUNDLE BRANCH BLOCK [120+ ms QRS DURATION, UPRIGHT V1, 40+ ms S IN I/aVL/V4/V5/V6] LEFT ANTERIOR FASCICULAR BLOCK [QRS AXIS <= -45, QR IN I, RS IN II] SEPTAL MYOCARDIAL INFARCTION [40+ ms Q WAVE IN V1/V2], PROBABLY OLD ABNORMAL ECG Compared to ECG 06/21/2025 05:47:41 Ventricular premature complex(es) now present Myocardial infarct finding now present Electronically Signed On 06-21-2025 15:52:05 [employer] by Neymar Copeland M.D.
--- NOTE | 2025-06-21 10:55 | P.PNIM_ITS ---
Progress Note: A&P Assessment and Plan (1) CHF (congestive heart failure): Qualifiers: Heart failure chronicity: unspecified Heart failure type: unspecified Qualified Code(s): I50.9 - Heart failure, unspecified Code(s): I50.9 - Heart failure, unspecified Status: Acute Assessment and Plan: Pulmonary vascular congestion on x-ray/auscultation of lungs. No lower extremity edema. Reports she was discharged from [facility] in December 2024 with heart failure but not sent home on diuretics. Patient did receive 1 L normal saline bolus in the ER, -admitted with AFib with RVR is controlled we will monitor. Continue heparin gtt. - Daily weights, strict intake/output. -Pt diagnosed with CHF December 2024 with no new meds. -06/21: V/Q scan showed intermediate probability for PE -06/21: overnight patient had increased oxygen requirements, currently on 8 L nasal cannula -06/21: Chest x-ray showed pulmonary vascular congestion, will give Lasix - patient may have HFpEF since she has diastolic dysfunction as seen on echocardiogram is under which could be related to her systemic hypertension and pulmonary hypertension 06/20/25: Echocardiogram Summary 1. Definity contrast administered improved wall motion interpretation. 2. Left ventricular chamber dimension is normal. 3. Left ventricular systolic function is normal, estimated at 65-70. 4. There is moderate concentric increased left ventricular wall thickness. 5. E/e' 48 is significantly elevated. 6. Left atrial chamber dimension is severely enlarged. 7. The mitral valve has moderately calcified leaflets and a moderately calcified annulus. 8. There is mild mitral valve regurgitation. 9. There is mild tricuspid valve regurgitation. 10. Severe pulmonary hypertension, estimated pulmonary arterial systolic pressure is 63 mmHg. 11. Dilated inferior vena cava with >50% collapse upon inspiration consistent with elevated right atrial pressure, 10 mmHg. (2) Atrial fibrillation with rapid ventricular response: Code(s): I48.91 - Unspecified atrial fibrillation Status: Acute Assessment and Plan: ED EKG showed AFib with RVR rate 155, patient received Cardizem 15 mg IV x1, with subsequent rate control an EKG demonstrating AFib. Shortness of breath resolved. Currently AFib with controlled rate. Continue heparin GTT. -appreciate cardiology evaluation recommendation -06/20: started on sotalol b.i.d. which has been decreased to once daily due to bradycardia (on 06/21) -TSH within normal limits, -magnesium and potassium levels within normal limits -continue IMU status -will discuss with Cardiology regarding switching to Eliquis -echocardiogram as above (3) DEBBIE (acute kidney injury): Code(s): N17.9 - Acute kidney failure, unspecified Status: Acute Assessment and Plan: Now that her AFib with RVR is controlled we will monitor. Daily weights, strict intake/output. -1L given in ED, pt with CHF hx (new December 2024) -DEBBIE could be related to elevated blood pressure, CHF, atrial fibrillation, 06/20: Creatinine baseline seems to be around 1.3-1.6, -creatinine gradually improving -continue blood pressure medications -will consult Nephrology (4) Chronic kidney disease, stage 3b: Code(s): N18.32 - Chronic kidney disease, stage 3b Status: Acute Assessment and Plan: See above. (5) COPD (chronic obstructive pulmonary disease): Code(s): J44.9 - Chronic obstructive pulmonary disease, unspecified Status: Acute Assessment and Plan: Mild COPD exacerbation, her symptoms could have been related to AFib and pulmonary vascular congestion. received Solu-Medrol with EMS. Restart LEG BREAKER controller medications. 06/20: Pt with clear lungs today -Steroids given in ED, if wheezing continues, may give additional steroids. -06/21: Increasing oxygen requirements. - Appreciate pulmonology evaluation -patient with HFpEF, possible COPD, possible PE as V/Q scan on 06/21 showed intermediate probability -continue anticoagulation -continue Trelegy per pulmonology (6) CAD (coronary artery disease): Qualifiers: Associated angina: unspecified whether angina present Coronary Disease- Associated Artery/Lesion type: unspecified vessel or lesion type [place] vs. transplanted heart: unspecified whether [place] or transplanted heart Qualified Code(s): I25.10 - Atherosclerotic heart disease of [place] coronary artery without angina pectoris Code(s): I25.10 - Atherosclerotic heart disease of [place] coronary artery without angina pectoris Status: Acute Assessment and Plan: 06/20: S/p stents. Resume LEG BREAKER aspirin and atorvastatin. (7) Type 2 diabetes mellitus with diabetic chronic kidney disease: Code(s): E11.22 - Type 2 diabetes mellitus with diabetic chronic kidney disease Status: Acute Assessment and Plan: Accu-Cheks ACHS with low-dose insulin sliding scale and hypoglycemia protocol. (8) Hypertension: Qualifiers: Hypertension type: essential hypertension Qualified Code(s): I10 - Essential (primary) hypertension Code(s): I10 - Essential (primary) hypertension Status: Acute Assessment and Plan: Acute on chronic. LEG BREAKER antihypertensives once med rec entered. Patient does state that her blood pressures are normally in the 160s to 180s range 06/20: Restarted Pt home meds: losartan 100mg, hctz 25mg, -increase hydralazine to 75 mg Q i.d. -Continue to monitor (9) Pulmonary hypertension: Code(s): I27.20 - Pulmonary hypertension, unspecified Status: Acute Assessment and Plan: Severe pulmonary hypertension as seen on echocardiogram with RVSP of 63 mmHg -pulmonology and cardiology following the patient Plan DVT prophylaxis: Heparin infusion Stress ulcer prophylaxis: Not indicated Nutrition: Diabetic and heart healthy diet Code Status: DNR Due to a high probability of clinically significant, life threatening deterioration, the patient required my highest level of preparedness to intervene emergently and I personally spent this critical care time directly and personally managing the patient. This critical care time included obtaining a history; examining the patient; pulse oximetry; ordering and review of studies; arranging urgent treatment with development of a management plan; evaluation of patient's response to treatment; frequent reassessment; and discussions with other providers. It was exclusive of separately billable procedures and treating other patients and teaching time. Please see Assessment and Plan section and the rest of the note for further information on patient assessment and treatment This dictation may have been done utilizing a voice recognition system. Attempts have been made to correct errors. However, there may be uncorrected grammatical, spelling, and recognitions errors present. Subjective Date/time seen: 06/21/25 10:55 Interval history: Reason for hospitalization: COPD exacerbation, AFib RVR, heart failure, acute kidney injury 06/21/2025: Patient being seen for hospitalist group Is awake, alert, oriented, states she is complaining of shortness of breath this morning. Her oxygen requirements have increased overnight. She was on BiPAP and was switched to high-flow therapy.. Denies any chest pain, abdominal pain, nausea vomiting at this time. Chest x-ray shows pulmonary vascular congestion. Patient was bradycardic overnight with heart rates in the 30s and 40s. Urine output has been adequate, afebrile. Review of Systems Review of Systems: All systems reviewed & are unremarkable except as noted in HPI and below Exam Narrative: General: Pleasant female, having some shortness of breath HEENT:? Pupils equal reactive, sclera is clear, moist oral mucosa Neck:? Supple Respiratory:? Coarse breath sounds bilaterally, decreased at bases, no wheezing Cardiac:? Is irregularly irregular, rate controlled/bradycardia Abdomen:? Soft, nontender, nondistended, protuberant, normoactive bowel sounds Extremities:? Extremities are warm, no cyanosis, no edema Neuro:? Patient is awake, alert, oriented, nonfocal, follows simple commands and answers questions appropriately Skin:? No lesions noted Psych:? Normal mentation and affect Objective Data Vital Signs Vital Signs: Vital Signs - 24 hr 06/20/25 11:54 06/20/25 14:24 06/20/25 14:50 Temperature Pulse Rate 76 63 Respiratory Rate 22 H 20 Blood Pressure 186/52 H Pulse Oximetry 88 L 86 L Oxygen Delivery Nasal Cannula Oxygen Flow Rate 3 Fraction of Inspired Oxygen 06/20/25 14:56 06/20/25 15:00 06/20/25 16:00 Temperature Pulse Rate 69 60 66 Respiratory Rate 20 20 Blood Pressure 169/50 H Pulse Oximetry 88 L Oxygen Delivery Oxygen Flow Rate Fraction of Inspired Oxygen 06/20/25 17:44 06/20/25 20:00 06/20/25 20:00 Temperature Pulse Rate 65 Respiratory Rate 22 H Blood Pressure Pulse Oximetry 90 Oxygen Delivery CPAP Autopap Oxygen Flow Rate 6 Fraction of Inspired Oxygen 06/20/25 20:00 06/20/25 20:10 06/20/25 20:20 Temperature 98.3 F Pulse Rate 53 L 63 64 Respiratory Rate 20 20 24 H Blood Pressure 159/48 H Pulse Oximetry 89 L Oxygen Delivery Oxygen Flow Rate Fraction of Inspired Oxygen 06/20/25 20:20 06/20/25 20:32 06/20/25 22:00 Temperature Pulse Rate 64 78 55 L Respiratory Rate 24 H Blood Pressure Pulse Oximetry 93 Oxygen Delivery Autopap Oxygen Flow Rate Fraction of Inspired Oxygen 06/20/25 22:44 06/20/25 22:58 06/21/25 00:00 Temperature Pulse Rate 54 L 51 L Respiratory Rate 22 H Blood Pressure 191/67 H Pulse Oximetry 92 89 L Oxygen Delivery CPAP High Flow Therapy with Na Oxygen Flow Rate 45 Fraction of Inspired Oxygen 50 06/21/25 00:00 06/21/25 00:00 06/21/25 00:07 Temperature 97.8 F Pulse Rate 66 71 66 Respiratory Rate 21 H 20 Blood Pressure 185/53 H Pulse Oximetry 88 L 89 L Oxygen Delivery High Flow Therapy with Na Oxygen Flow Rate 40 Fraction of Inspired Oxygen 50 06/21/25 00:12 06/21/25 00:29 06/21/25 00:35 Temperature Pulse Rate 55 L 55 L Respiratory Rate 24 H 24 H Blood Pressure 183/65 H Pulse Oximetry 89 L 87 L 90 Oxygen Delivery High Flow Therapy with Na CPAP CPAP Oxygen Flow Rate 45 Fraction of Inspired Oxygen 06/21/25 01:34 06/21/25 01:35 06/21/25 02:00 Temperature Pulse Rate 50 L 50 L 43 L Respiratory Rate 20 20 Blood Pressure Pulse Oximetry 90 Oxygen Delivery CPAP Oxygen Flow Rate Fraction of Inspired Oxygen 06/21/25 04:00 06/21/25 04:00 06/21/25 04:00 Temperature 98.1 F Pulse Rate 54 L 42 L Respiratory Rate 20 Blood Pressure 143/77 H Pulse Oximetry 93 92 Oxygen Delivery CPAP Oxygen Flow Rate 45 Fraction of Inspired Oxygen 50 06/21/25 04:23 06/21/25 06:00 06/21/25 07:38 Temperature Pulse Rate 52 L 58 L 57 L Respiratory Rate 19 22 H Blood Pressure Pulse Oximetry 92 95 Oxygen Delivery CPAP CPAP Oxygen Flow Rate Fraction of Inspired Oxygen 06/21/25 07:40 06/21/25 07:40 06/21/25 07:49 Temperature 97.8 F Pulse Rate 51 L 44 L 70 Respiratory Rate 20 19 25 H Blood Pressure 187/61 H Pulse Oximetry 94 95 Oxygen Delivery High Flow Therapy with Na Oxygen Flow Rate 45 Fraction of Inspired Oxygen 55 06/21/25 07:50 06/21/25 08:00 06/21/25 08:15 Temperature Pulse Rate 64 52 L 66 Respiratory Rate 22 H Blood Pressure Pulse Oximetry Oxygen Delivery Oxygen Flow Rate Fraction of Inspired Oxygen 06/21/25 09:45 Temperature Pulse Rate 52 L Respiratory Rate 20 Blood Pressure Pulse Oximetry 91 Oxygen Delivery High Flow Nasal Cannula Oxygen Flow Rate 8 Fraction of Inspired Oxygen Intake/Output Intake/Output: Intake & Output 06/18/25 06/19/25 06/20/25 06/21/25 23:59 23:59 23:59 23:59 Intake Total 1200 721.6 671.5 Output Total 350 500 Balance 1200 371.6 171.5 Meds/Results Medications: Active Medications Generic Name Dose Route Start Last Admin Trade Name Freq PRN Reason Stop Dose Admin Acetaminophen 1,000 mg 06/19/25 22:44 06/20/25 22:37 Acetaminophen 500 Mg Tablet PO 1,000 mg TID PRN Administration Mild Pain (1-3) or Fever Allopurinol 100 mg 06/23/25 09:00 Allopurinol 100 Mg Tablet PO Q48HR DAVID Amlodipine Besylate 10 mg 06/20/25 09:00 06/21/25 07:48 Amlodipine Besylate 10 Mg Tablet BY MOUTH 10 mg DAILY DAVID Administration Aspirin 81 mg 06/20/25 09:00 06/21/25 07:48 Aspirin 81 Mg Enteric Tablet PO 81 mg DAILY DAVID Administration Atorvastatin Calcium 80 mg 06/20/25 09:55 06/21/25 07:47 Atorvastatin 40 Mg Tablet PO 80 mg DAILY DAVID Administration Dextrose 12.5 gm 06/19/25 21:30 Dextrose 50% 25 Gm/50 Ml Syringe IV PUSH PRN PRN Hypoglycemia Protocol Fluticasone Propionate 1 spray 06/20/25 09:00 06/21/25 07:48 Fluticasone Propionate 0.05% Na Spr 16 Gm Btl (*Bkc) NASAL 1 spray Q12H DAVID Administration Fluticasone/Umeclidinium/Vilanterol 1 puff 06/20/25 09:00 06/21/25 09:45 Fluticasone/Umeclidin/Vilanter 100-62.5-25 Mcg Ellipta INHALATION 1 puff Q24H DAVID Administration Glucose 15 gm 06/19/25 21:30 Glucose Oral Gel 15 Gm Of Glucse In 37.5 Gm Tube PO PRN PRN Hypoglycemia Protocol Heparin Sodium (Porcine) 5,500 units 06/19/25 19:03 06/21/25 02:12 Heparin Sodium 5,000 Units/Ml Vial IV PUSH 5,500 units PRN PRN Administration aPTT less than 55 seconds Heparin Sodium (Porcine) 2,500 units 06/19/25 19:03 06/20/25 13:30 Heparin Sodium 5,000 Units/Ml Vial IV PUSH 2,500 units PRN PRN Administration aPTT 55 - 70 seconds Hydralazine HCl 75 mg 06/21/25 13:00 Hydralazine Hcl 25 Mg Tablet PO QID [facility] Hydrochlorothiazide 12.5 mg 06/20/25 09:50 06/21/25 07:48 Hydrochlorothiazide 12.5 Mg Capsule PO 12.5 mg DAILY DAVID Administration Heparin Sodium/Dextrose 25,000 units in 250 mls @ 16 mls/hr 06/19/25 19:05 06/21/25 10:20 Heparin Sodium/D5w 100 Units/Ml IV CONT 1,600 units/hr .[id number] DAVID 16 mls/hr Protocol Titration 1,600 UNITS/HR Dextrose 1,000 mls @ 100 mls/hr 06/19/25 21:30 Dextrose 5% 1,000 Ml IVPB PRN PRN Hypoglycemia Protocol Insulin Aspart 2 - 5 units 06/20/25 08:00 06/21/25 07:42 Insulin Aspart (*Bkc) 100 Units/Ml SUB-Q Not Given TIDWM [facility] Protocol Insulin Aspart 1 - 2 units 06/20/25 21:00 06/20/25 20:32 Insulin Aspart (*Bkc) 100 Units/Ml SUB-Q Not Given HS [facility] Protocol Ipratropium [place] 0.5 mg 06/20/25 02:00 06/21/25 07:40 Ipratropium Br 0.02% Inh Soln 0.5 Mg/2.5 Ml Vial INHALATION 0.5 mg Q6HRT [facility] Administration Isosorbide Mononitrate 60 mg 06/20/25 09:50 06/21/25 07:48 Isosorbide Mononitrate 60 Mg Tab.Er.24h PO 60 mg DAILY DAVID Administration Levothyroxine Sodium 100 mcg 06/21/25 06:30 06/21/25 05:58 Levothyroxine Sodium 100 Mcg Tablet PO 100 mcg DAILY@0630 DAVID Administration Losartan Potassium 100 mg 06/20/25 09:00 06/21/25 07:47 Losartan Potassium 100 Mg Tablet PO 100 mg DAILY DAVID Administration Perflutren Lipid Microsphere 0 ml 06/21/25 10:46 Perflutren Lipid Microspheres 1.5 Ml Vial Diluted To 10 Ml Total Volume IV PUSH 06/24/25 10:46 ONCE PRN adequate visualization Protocol Sotalol HCl 40 mg 06/21/25 09:00 06/21/25 08:15 Sotalol Hcl 40 Mg Tablet PO 40 mg DAILY DAVID Administration Radiology Results: ITS Impressions Chest X-Ray 06/21/25 08:41 IMPRESSION: 1. Findings consistent with vascular congestion and mild persisting pulmonary edema and/or pneumonia. Labs Labs: Laboratory Results - last 24 hr 06/20/25 06/20/25 06/20/25 11:39 11:48 16:50 WBC RBC Hgb Hct MCV MCH MCHC RDW Plt Count MPV Immature Gran % (Auto) Neut % (Auto) Lymph % (Auto) [place] % (Auto) Eos % (Auto) Baso % (Auto) Lymph # (Auto) [place] # (Auto) Eos # (Auto) Baso # (Auto) Abs Immat Gran (auto) Absolute Neuts (auto) Absolute Nucleated RBC Nucleated RBC % APTT 56.7 H Puncture Site ABG pH ABG pCO2 ABG pO2 ABG PO2/FiO2 Ratio ABG HCO3 ABG O2 Saturation ABG O2 Content ABG Base Excess A-a Gradient Oxyhemoglobin Total Hemoglobin O2 Delivery Device O2 Liters/Min FiO2 Sodium Potassium Chloride Carbon Dioxide Anion Gap BUN Creatinine Estim Creat Clear Calc Estimated GFR Glucose POC Capillary Glucose 223 H 170 H Calcium Magnesium Total Bilirubin AST ALT Alkaline Phosphatase NT-Pro-B Natriuret Pep Total Protein Albumin Free T4 06/20/25 06/20/25 06/21/25 19:05 20:31 01:44 WBC 12.3 H RBC 3.76 L Hgb 12.2 Hct 37.9 MCV 100.8 H MCH 32.4 MCHC 32.2 RDW 14.2 Plt Count 184 MPV 11.4 H Immature Gran % (Auto) 0.4 Neut % (Auto) 80.9 H Lymph % (Auto) 13.5 L [place] % (Auto) 4.9 Eos % (Auto) 0.1 Baso % (Auto) 0.2 Lymph # (Auto) 1.66 [place] # (Auto) 0.6 Eos # (Auto) 0.0 Baso # (Auto) 0.0 Abs Immat Gran (auto) 0.05 H Absolute Neuts (auto) 9.9 H Absolute Nucleated RBC 0.000 Nucleated RBC % 0.0 APTT 32.3 46.1 H Puncture Site ABG pH ABG pCO2 ABG pO2 ABG PO2/FiO2 Ratio ABG HCO3 ABG O2 Saturation ABG O2 Content ABG Base Excess A-a Gradient Oxyhemoglobin Total Hemoglobin O2 Delivery Device O2 Liters/Min FiO2 Sodium 132 L Potassium 4.6 Chloride 105 Carbon Dioxide 17 L Anion Gap 10 BUN 57 H Creatinine 2.13 H Estim Creat Clear Calc 22 Estimated GFR 23 L Glucose 170 H POC Capillary Glucose 199 H Calcium 8.7 Magnesium 2.5 H Total Bilirubin 0.5 AST 30 ALT 22 Alkaline Phosphatase 96 NT-Pro-B Natriuret Pep Total Protein 6.6 Albumin 3.6 Free T4 06/21/25 06/21/25 06/21/25 07:38 08:15 09:53 WBC RBC Hgb Hct MCV MCH MCHC RDW Plt Count MPV Immature Gran % (Auto) Neut % (Auto) Lymph % (Auto) [place] % (Auto) Eos % (Auto) Baso % (Auto) Lymph # (Auto) [place] # (Auto) Eos # (Auto) Baso # (Auto) Abs Immat Gran (auto) Absolute Neuts (auto) Absolute Nucleated RBC Nucleated RBC % APTT > 200.0 H* Puncture Site Left radial ABG pH 7.401 ABG pCO2 35.1 ABG pO2 59.1 L ABG PO2/FiO2 Ratio 1.14 ABG HCO3 21.3 L ABG O2 Saturation 90.9 L ABG O2 Content 16.6 ABG Base Excess -2.8 A-a Gradient 272.4 Oxyhemoglobin 89.2 L Total Hemoglobin 13.2 O2 Delivery Device High flow nasal boris O2 Liters/Min 8.0 FiO2 52 Sodium Potassium Chloride Carbon Dioxide Anion Gap BUN Creatinine Estim Creat Clear Calc Estimated GFR Glucose POC Capillary Glucose 160 H Calcium Magnesium Total Bilirubin AST ALT Alkaline Phosphatase NT-Pro-B Natriuret Pep 6060 H Total Protein Albumin Free T4 1.37 Quality VTE Prophylaxis VTE prophylaxis: pharmacologic ordered (Heparin gtt)
--- NOTE | 2025-06-21 10:56 | PM.CNPUL ---
Assessment and Plan Assessment and plan (1) COPD (chronic obstructive pulmonary disease): Code(s): J44.9 - Chronic obstructive pulmonary disease, unspecified Status: Acute Assessment and Plan: Regarding her COPD the patient tells me she did PFTs at [facility] 4-5 years ago and they told her she had a little bit of COPD. Patient had a CT scan of the chest in our system on 05/10/2020 with very mild apical predominant centrilobular emphysema. Her last CT scan low-dose on 09/13/2024 showed mild apical predominant centrilobular emphysema with no concerning masses or nodules. I have no PFTs. She has been maintained on inhalers. She wears no oxygen at home and a few months ago when she checked her pulse oximetry is 94-95%. Few months ago when she was feeling well she had 2 block limitation in her activity due to leg pain and back pain not dyspnea on exertion. At baseline she has no chronic cough, she produces phlegm 1 to 2 times a day and has no hemoptysis. Patient smoked tobacco from [id number] at half a pack a day for a total of 30 pack years. Patient was exposed to secondhand smoke from her father and after she moved out of her father's house she has lived with smokers all her life. Patient smokes marijuana 2-3 inhalations a day for the last 10 years and quit in May of 2025. Patient denies vaping, illicit drug use. 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 Current illness started on 06/17 where she had minimal shortness of breath with no cough, fever. She did have slightly more phlegm than usual with no hemoptysis. On 06/18 she noticed that her heart was racing and then her shortness of breath got much worse and she presented to the emergency department on 06/19/2025. She complained of worsening shortness of breath. EMS had given her DuoNebs x2 and Solu-Medrol. In the emergency department her heart rate was irregularly irregular at a heart rate of 157. Blood pressure was 162/73, respirations were 26 and a room air saturations were 94%. She was afebrile. Her lungs were clear to auscultation. Her white blood cell count was 9.6 with 0.6% eosinophils, her creatinine was 2.26, serum bicarb was 20, her chest x-ray showed congestion. Patient was treated for dehydration with 1 L IV fluid, IV diltiazem, IV heparin, ceftriaxone and doxycycline. It was felt she was not having a COPD exacerbation and steroids were discontinued. It was felt that she did not have a infection and her antibiotics were discontinued. 06/20/2025: Patient had an echocardiogram with an LVEF 65-70%. Severely enlarged left atrium, mild mitral regurg, mild tricuspid regurg with a PASP of 63. Normal RV size and function. Normal right atrial size. Mild mitral stenosis. 06/21/2025: Patient tells me she is breathing normal today. She denies phlegm or hemoptysis. Her cough is at her baseline. When I enter the room she was on Vapotherm with 45 L and 55% FiO2 with saturations 95%. I changed her to 15 L nasal cannula and sequentially decreased her to 8 L nasal cannula with saturations 91%. She felt better on the nasal cannula. She is afebrile. White blood cell count is 12.3, creatinine is 2.13, BNP is 6060. Free T4 is 1.37. Chest x-ray shows congestion. ABG on 8 L nasal cannula 7.40/35/59. Plan: I do not believe patient has having a COPD exacerbation, bronchitis or pneumonia. She does have hypoxemic respiratory failure without hypercarbic respiratory failure. I will continue her trelegy 100 which contains an muscarinic antagonist and I will therefore discontinue her nebulized ipratropium. Goal saturation 90-94%. Patient has hypoxic respiratory failure somewhat out of proportion to her imaging and I will obtain echo with bubble study today. Discussed with Dr. Ruiz, will follow with you. (2) Pulmonary hypertension: Code(s): I27.20 - Pulmonary hypertension, unspecified Status: Acute Assessment and Plan: Patient was admitted to [facility] with fluid overload and congestive heart failure from 12/26/2024 through 12/30/2024. During that hospitalization she had an echocardiogram on 12/28 that showed grade 3 diastolic dysfunction, moderate mitral regurg, moderate tricuspid regurg with a PASP of 70. LV EF was not stated in the discharge summary. Hydralazine was added to her regimen. ABG during that admission was 7.32/42/59 and the patient was started on BiPAP and moved to the ICU and eventually transitioned to CPAP. She was discharged home on oxygen and she wore this for 2-3 weeks. She was supposed to follow-up with pulmonary but has not done this. No mention of a COPD exacerbation in the discharge summary. 06/20/2025: Patient had an echocardiogram with an LVEF 65-70%. Severely enlarged left atrium, mild mitral regurg, mild tricuspid regurg with a PASP of 63. Normal RV size and function. Normal right atrial size. Mild mitral stenosis. Etiology of pulmonary hypertension includes: Idiopathic pulmonary arterial hypertension, pulmonary hypertension with heart failure with preserved LVEF, mitral stenosis, COPD, hypoxic respiratory failure, doubt chronic thromboembolic pulmonary hypertension. Plan: I will obtain V/Q scan of the chest today to assess for chronic thromboembolic pulmonary hypertension. BNP is elevated and chest x-ray with congestion likely related to AFib with RVR. Patient received Lasix 40 IV today. Cardiology is following to optimize her cardiac function and volume status. there is no evidence of COPD exacerbation will continue her maintenance inhalers. She has discontinued tobacco use. Patient was started on sotalol and dose will D be decreased due to bradycardia. (3) Sleep apnea: Qualifiers: Sleep apnea type: unspecified type Qualified Code(s): G47.30 - Sleep apnea, unspecified Code(s): G47.30 - Sleep apnea, unspecified Status: Acute Assessment and Plan: Regarding her obstructive sleep apnea she was diagnosed approximately 10 years ago with a sleep study. She does not remember where this sleep study was performed. She is on CPAP and does not know her settings. She does not wear oxygen with her CPAP. She does not know her DME company. She uses a fullface mask. She says she wears her mask regularly. 06/21/25: Last night the patient was placed on CPAP 10 and pressures were increased to CPAP 16. She says that she wore the mask last night and that these settings felt similar to her home settings. Plan: Patient believes her DME company may be [employer] and we will check with them for a download. I have told her to have her family bring in her CPAP machine so that we can verify her settings. If no verification will continue CPAP 16 as she said that this felt similar to her home settings. History of Present Illness History of Present Illness Consult date: 06/21/25 Chief complaint: COPD Exacerbation, AFib with RVR Narrative: 06/21/2025: This is a new pulmonary consult for COPD and pulmonary hypertension. 75-year-old with a history of coronary artery disease status post stents in 2011, diabetes, hypertension, hyperlipidemia, CKD stage 3 to 4, DENNIS on CPAP for 10 years. Patient was admitted to [facility] with fluid overload and congestive heart failure from 12/26/2024 through 12/30/2024. During that hospitalization she had an echocardiogram on 12/28 that showed grade 3 diastolic dysfunction, moderate mitral regurg, moderate tricuspid regurg with a PASP of 70. LV EF was not stated in the discharge summary. Hydralazine was added to her regimen. ABG during that admission was 7.32/42/59 and the patient was started on BiPAP and moved to the ICU and eventually transitioned to CPAP. She was discharged home on oxygen and she wore this for 2-3 weeks. She was supposed to follow-up with pulmonary but has not done this. No mention of a COPD exacerbation in the discharge summary. Regarding her obstructive sleep apnea she was diagnosed approximately 10 years ago with a sleep study. She does not remember where this sleep study was performed. She is on CPAP and does not know her settings. She does not wear oxygen with her CPAP. She does not know her DME company. She uses a fullface mask. She says she wears her mask regularly. Regarding her COPD the patient tells me she did PFTs at [facility] 4-5 years ago and they told her she had a little bit of COPD. Patient had a CT scan of the chest in our system on 05/10/2020 with very mild apical predominant centrilobular emphysema. Her last CT scan low-dose on 09/13/2024 showed mild apical predominant centrilobular emphysema with no concerning masses or nodules. I have no PFTs. She has been maintained on inhalers. She wears no oxygen at home and a few months ago when she checked her pulse oximetry is 94-95%. Few months ago when she was feeling well she had 2 block limitation in her activity due to leg pain and back pain not dyspnea on exertion. At baseline she has no chronic cough, she produces phlegm 1 to 2 times a day and has no hemoptysis. Patient smoked tobacco from [id number] at half a pack a day for a total of 30 pack years. Patient was exposed to secondhand smoke from her father and after she moved out of her father's house she has lived with smokers all her life. Patient smokes marijuana 2-3 inhalations a day for the last 10 years and quit in May of 2025. Patient denies vaping, illicit drug use. 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 04/14/2025: Patient saw her bloom conveyor operator she weighed 196 lb. Her creatinine on 04/11/2025 was 1.58. 04/28/2025: Patient followed with her security installation sales technician, Dr. Colón, she had 2 block dyspnea on exertion, her room air saturations were 92%. Her weight was 195 lb. Respiratory medicines include trelegy 100, albuterol p.r.n. and Flonase. Current illness started on 06/17 where she had minimal shortness of breath with no cough, fever. She did have slightly more phlegm than usual with no hemoptysis. On 06/18 she noticed that her heart was racing and then her shortness of breath got much worse and she presented to the emergency department on 06/19/2025. She complained of worsening shortness of breath. EMS had given her DuoNebs x2 and Solu-Medrol. In the emergency department her heart rate was irregularly irregular at a heart rate of 157. Blood pressure was 162/73, respirations were 26 and a room air saturations were 94%. She was afebrile. Her lungs were clear to auscultation. Her white blood cell count was 9.6 with 0.6% eosinophils, her creatinine was 2.26, serum bicarb was 20, her chest x-ray showed congestion. Patient was treated for dehydration with 1 L IV fluid, IV diltiazem, IV heparin, ceftriaxone and doxycycline. It was felt she was not having a COPD exacerbation and steroids were discontinued. It was felt that she did not have a infection and her antibiotics were discontinued. 06/20/2025: Patient had an echocardiogram with an LVEF 65-70%. Severely enlarged left atrium, mild mitral regurg, mild tricuspid regurg with a PASP of 63. Normal RV size and function. Normal right atrial size. Mild mitral stenosis. 06/21/2025: Patient tells me she is breathing normal today. She denies phlegm or hemoptysis. Her cough is at her baseline. When I enter the room she was on Vapotherm with 45 L and 55% FiO2 with saturations 95%. I changed her to 15 L nasal cannula and sequentially decreased her to 8 L nasal cannula with saturations 91%. She felt better on the nasal cannula. She is afebrile. White blood cell count is 12.3, creatinine is 2.13, BNP is 6060. Free T4 is 1.37. Chest x-ray shows congestion. ABG on 8 L nasal cannula 7.40/35/59. Last night the patient was placed on CPAP 10 and pressures were increased to CPAP 16. She says that she wore the mask last night and that these settings felt similar to her home settings. DATA: 06/20/25: Echo Summary 1. Definity contrast administered improved wall motion interpretation. 2. Left ventricular chamber dimension is normal. 3. Left ventricular systolic function is normal, estimated at 65-70. 4. There is moderate concentric increased left ventricular wall thickness. 5. E/e' 48 is significantly elevated. 6. Left atrial chamber dimension is severely enlarged. 7. The mitral valve has moderately calcified leaflets and a moderately calcified annulus. 8. There is mild mitral valve regurgitation. 9. There is mild tricuspid valve regurgitation. 10. Severe pulmonary hypertension, estimated pulmonary arterial systolic pressure is 63 mmHg. 11. Dilated inferior vena cava with >50% collapse upon inspiration consistent with elevated right atrial pressure, 10 mmHg. Right Ventricle Right ventricular chamber dimension is normal. Right ventricular systolic function is normal and with normal TAPSE 2.3 cm. Left Atria Left atrial chamber dimension is severely enlarged. Right Atria Right atrial chamber dimension is normal. Mitral Valve The mitral valve has moderately calcified leaflets and a moderately calcified annulus. There is mild mitral valve stenosis with valve area of 1.9 cm2. There is mild mitral valve regurgitation. 09/13/24: EXAMINATION:CT lung screening INDICATION: Personal history of nicotine dependence. Current smoker with 56 pack year history. COMPARISON: Chest CT 09/10/2023 FINDINGS: There is mild emphysema. There is a 3 mm nodule in right upper lobe. There is a 7 mm nodule at minor fissure without change. Calcified pulmonary nodules and calcified hilar and mediastinal lymph nodes are consistent with old granulomatous disease. There is mild atelectasis bilaterally. No pleural effusion. Cardiomegaly is noted. There are coronary artery calcifications. No pericardial effusion. There are changes of cholecystectomy. There is severe thoracic spondylosis. IMPRESSION: 1. Lung-RADS category 2: Benign appearance or behavior. Continue annual screening with noncontrast low-dose chest CT in 12 months. Review of Systems Constitutional: Constitutional: Reports no additional constitutional complaints Eyes: Eyes: Reports no additional eye complaints ENT: Reports system reviewed and no additional complaints, except as documented Cardiovascular: Cardiovascular: Reports no additional cardiovascular complaints Respiratory: Respiratory: Reports no additional respiratory complaints Gastrointestinal: Gastrointestinal: Reports no additional gastrointestinal complaints Musculoskeletal: Musculoskeletal: Reports no additional musculoskeletal complaints Neurologic: Reports system reviewed and no additional complaints, except as documented Psychiatric: Psychiatric: Reports no additional psychiatric complaints Endocrine: Endocrine: Reports no additional endocrine complaints Hematologic/Lymphatic: Hematologic/Lymphatic: Reports no additional hematologic/lymphatic complaints Allergic/Immunologic: Allergic/Immunologic: Reports no additional allergic/immunologic complaints FOR[facility]LY [facility] Past Medical History Medical History Chronic kidney disease, stage 3a Screening for breast cancer Fluid in knee Osteoarthritis of left knee Hemoglobin A1c less than 7.0% 08/29/20 A1c 5.9 Joint effusion of knee Left knee pain Pulmonary nodule Eczema Urine test positive for microalbuminuria Hyperkalemia Allergies Leukocytosis Complications of gastric bypass surgery 1994 Cholecystectomy planned Bradycardia Hypertension CAD (coronary artery disease) Hypothyroidism Gout Sleep apnea Chicken pox Migraine Type 2 diabetes mellitus Bulging disc Osteoarthritis Hernia Heart disease Hyperlipidemia Myocardial infarction COPD (chronic obstructive pulmonary disease) Family History Family History Mother Family history of renal failure Diabetes mellitus Hypertension Sibling Heart disease Diabetes mellitus Father Diabetes mellitus Hypertension Other Family history of coronary artery disease Family history of obesity Social History Social History Smoking status: Former smoker Tobacco type: cigarettes Smoking end date: 08/04/17 Alcohol intake: never Substance use: current Substance use type: marijuana Do You Feel Safe in your Home?: Yes Lack of Transportation: No Lack of Food: Sometimes True Current Housing: I Have Housing Concerned About Future Housing: No Difficulty Paying Gas/Electric Bills: No Difficulty Paying for Meds: No Currently Unemployed: No Education: Grade School Difficulty w/ Childcare or Family Care: No Gender identity (if verbalized by the patient): Female Spiritual care concerns: No Meds Home Medications and Allergies Home Medications ?Medication ?Instructions ?Recorded ?Confirmed ?Type aspirin 81 mg tablet,delayed 81 mg PO DAILY 07/29/19 06/20/25 History release (Adult Low Dose Aspirin) dapagliflozin propanediol 10 mg 10 mg PO DAILY 12/02/23 06/20/25 History tablet (Farxiga) losartan 100 mg tablet 100 mg PO DAILY #30 tabs 01/17/25 06/20/25 Rx fluticasone propionate 50 1 spray intranasal Q12H #48 grams 02/25/25 06/20/25 Rx mcg/actuation nasal spray,suspension (Flonase Allergy Relief) hydrochlorothiazide 12.5 mg tablet See Rx Instructions .Route 02/25/25 06/20/25 Rx .COMPLEX #180 tabs amlodipine 10 mg tablet See Rx Instructions .Route 03/14/25 06/20/25 Rx .COMPLEX #90 tabs atorvastatin 80 mg tablet See Rx Instructions .Route 03/14/25 06/20/25 Rx .COMPLEX #90 tabs isosorbide mononitrate 60 mg See Rx Instructions .Route 03/14/25 06/20/25 Rx tablet,extended release 24 hr .COMPLEX #90 tabs levothyroxine 100 mcg tablet See Rx Instructions .Route 03/14/25 06/20/25 Rx .COMPLEX #90 tabs allopurinol 100 mg tablet 100 mg PO TID #270 tabs 04/18/25 06/20/25 Rx albuterol sulfate 90 mcg/actuation See Rx Instructions .Route 05/02/25 06/20/25 Rx aerosol inhaler .COMPLEX #42.5 grams hydralazine 50 mg tablet 50 mg PO TID #270 tabs 05/02/25 06/20/25 Rx metformin 1,000 mg tablet 1,000 mg PO DAILY #90 tabs 05/26/25 06/20/25 Rx fluticasone fur. 100 mcg-umeclid 1 inh inhalation Q24H #60 ea 05/27/25 06/20/25 Rx 62.5 mcg-vilant 25 mcg inhalat.powder (Trelegy Ellipta) Allergies Allergy/AdvReac Type Severity Reaction Status Date / Time naproxen AdvReac Itching Verified 06/20/25 12:51 Vital Signs Vital Signs - 24 hr 06/20/25 11:54 06/20/25 14:24 06/20/25 14:50 Temperature Pulse Rate 76 63 Respiratory Rate 22 H 20 Blood Pressure 186/52 H Pulse Oximetry 88 L 86 L Oxygen Delivery Nasal Cannula Oxygen Flow Rate 3 Fraction of Inspired Oxygen 06/20/25 14:56 06/20/25 15:00 06/20/25 16:00 Temperature Pulse Rate 69 60 66 Respiratory Rate 20 20 Blood Pressure 169/50 H Pulse Oximetry 88 L Oxygen Delivery Oxygen Flow Rate Fraction of Inspired Oxygen 06/20/25 17:44 06/20/25 20:00 06/20/25 20:00 Temperature Pulse Rate 65 Respiratory Rate 22 H Blood Pressure Pulse Oximetry 90 Oxygen Delivery CPAP Autopap Oxygen Flow Rate 6 Fraction of Inspired Oxygen 06/20/25 20:00 06/20/25 20:10 06/20/25 20:20 Temperature 36.8 C Pulse Rate 53 L 63 64 Respiratory Rate 20 20 24 H Blood Pressure 159/48 H Pulse Oximetry 89 L Oxygen Delivery Oxygen Flow Rate Fraction of Inspired Oxygen 06/20/25 20:20 06/20/25 20:32 06/20/25 22:00 Temperature Pulse Rate 64 78 55 L Respiratory Rate 24 H Blood Pressure Pulse Oximetry 93 Oxygen Delivery Autopap Oxygen Flow Rate Fraction of Inspired Oxygen 06/20/25 22:44 06/20/25 22:58 06/21/25 00:00 Temperature Pulse Rate 54 L 51 L Respiratory Rate 22 H Blood Pressure 191/67 H Pulse Oximetry 92 89 L Oxygen Delivery CPAP High Flow Therapy with Na Oxygen Flow Rate 45 Fraction of Inspired Oxygen 50 06/21/25 00:00 06/21/25 00:00 06/21/25 00:07 Temperature 36.6 C Pulse Rate 66 71 66 Respiratory Rate 21 H 20 Blood Pressure 185/53 H Pulse Oximetry 88 L 89 L Oxygen Delivery High Flow Therapy with Na Oxygen Flow Rate 40 Fraction of Inspired Oxygen 50 06/21/25 00:12 06/21/25 00:29 06/21/25 00:35 Temperature Pulse Rate 55 L 55 L Respiratory Rate 24 H 24 H Blood Pressure 183/65 H Pulse Oximetry 89 L 87 L 90 Oxygen Delivery High Flow Therapy with Na CPAP CPAP Oxygen Flow Rate 45 Fraction of Inspired Oxygen 06/21/25 01:34 06/21/25 01:35 06/21/25 02:00 Temperature Pulse Rate 50 L 50 L 43 L Respiratory Rate 20 20 Blood Pressure Pulse Oximetry 90 Oxygen Delivery CPAP Oxygen Flow Rate Fraction of Inspired Oxygen 06/21/25 04:00 06/21/25 04:00 06/21/25 04:00 Temperature 36.7 C Pulse Rate 54 L 42 L Respiratory Rate 20 Blood Pressure 143/77 H Pulse Oximetry 93 92 Oxygen Delivery CPAP Oxygen Flow Rate 45 Fraction of Inspired Oxygen 50 06/21/25 04:23 06/21/25 06:00 06/21/25 07:38 Temperature Pulse Rate 52 L 58 L 57 L Respiratory Rate 19 22 H Blood Pressure Pulse Oximetry 92 95 Oxygen Delivery CPAP CPAP Oxygen Flow Rate Fraction of Inspired Oxygen 06/21/25 07:40 06/21/25 07:40 06/21/25 07:49 Temperature 36.6 C Pulse Rate 51 L 44 L 70 Respiratory Rate 20 19 25 H Blood Pressure 187/61 H Pulse Oximetry 94 95 Oxygen Delivery High Flow Therapy with Na Oxygen Flow Rate 45 Fraction of Inspired Oxygen 55 06/21/25 07:50 06/21/25 08:00 06/21/25 08:15 Temperature Pulse Rate 64 52 L 66 Respiratory Rate 22 H Blood Pressure Pulse Oximetry Oxygen Delivery Oxygen Flow Rate Fraction of Inspired Oxygen 06/21/25 09:45 Temperature Pulse Rate 52 L Respiratory Rate 20 Blood Pressure Pulse Oximetry 91 Oxygen Delivery High Flow Nasal Cannula Oxygen Flow Rate 8 Fraction of Inspired Oxygen Exam Const: General: cooperative, healthy appearing and comfortable Orientation/consciousness: oriented to person, oriented to place and oriented to time HENMT: Head: normal to inspection Ears: hearing grossly normal bilaterally Eyes: General: appearance normal, both eyes and all related structures Neck: Neck: normal visual inspection Chest: Chest palpation & inspection: normal inspection of the chest Resp: Effort & Inspection: normal respiratory effort and able to speak in complete sentences Auscultation: no crackles, no rales, no rhonchi, no wheezes and lung sounds not diminished Cardio: Jugular venous distension: no JVD GI: Inspection: normal to inspection GI Palp: No abdominal tenderness Skin: General skin exam: normal color Neuro: General: oriented to person, oriented to place and oriented to time Extrem: General: normal to inspection Psych: Appearance: grossly normal Results Laboratory Findings 06/21/25 01:44 06/21/25 01:44 ABG, PT/INR, D-dimer: ABG ABG pH 7.401 (7.350-7.450) 06/21/25 09:53 ABG pCO2 35.1 mmHg (35.0-45.0) 06/21/25 09:53 ABG pO2 59.1 mmHg (80.0-100.0) L 06/21/25 09:53 ABG O2 Saturation 90.9 % (95.0-100.0) L 06/21/25 09:53 PT/INR, D-dimer PT 14.4 Seconds (11.1-14.7) 06/20/25 06:06 INR 1.1 06/20/25 06:06 Abnormal lab findings: Abnormal Labs 06/19/25 06/19/25 06/20/25 16:39 18:36 05:11 WBC RBC 4.07 L 3.77 L MCV 100.7 H MPV 11.3 H 11.4 H Neut % (Auto) 81.3 H Lymph % (Auto) 14.4 L Abs Immat Gran (auto) 0.05 H Absolute Neuts (auto) 7.8 H APTT ABG pO2 ABG HCO3 ABG O2 Saturation Oxyhemoglobin Sodium 135 L 135 L Potassium 5.1 H Carbon Dioxide 20 L 20 L BUN 46 H D 51 H Creatinine 2.26 H 2.28 H Estimated GFR 21 L 21 L Glucose 211 H 198 H POC Capillary Glucose Magnesium 2.4 H 2.4 H AST 38 H Alkaline Phosphatase 131 H NT-Pro-B Natriuret Pep 06/20/25 06/20/25 06/20/25 06:06 08:42 11:39 WBC RBC MCV MPV Neut % (Auto) Lymph % (Auto) Abs Immat Gran (auto) Absolute Neuts (auto) APTT 106.6 H ABG pO2 ABG HCO3 ABG O2 Saturation Oxyhemoglobin Sodium Potassium Carbon Dioxide BUN Creatinine Estimated GFR Glucose POC Capillary Glucose 179 H 223 H Magnesium AST Alkaline Phosphatase NT-Pro-B Natriuret Pep 06/20/25 06/20/25 06/20/25 11:48 16:50 20:31 WBC RBC MCV MPV Neut % (Auto) Lymph % (Auto) Abs Immat Gran (auto) Absolute Neuts (auto) APTT 56.7 H ABG pO2 ABG HCO3 ABG O2 Saturation Oxyhemoglobin Sodium Potassium Carbon Dioxide BUN Creatinine Estimated GFR Glucose POC Capillary Glucose 170 H 199 H Magnesium AST Alkaline Phosphatase NT-Pro-B Natriuret Pep 06/21/25 06/21/25 06/21/25 01:44 07:38 08:15 WBC 12.3 H RBC 3.76 L MCV 100.8 H MPV 11.4 H Neut % (Auto) 80.9 H Lymph % (Auto) 13.5 L Abs Immat Gran (auto) 0.05 H Absolute Neuts (auto) 9.9 H APTT 46.1 H > 200.0 H* ABG pO2 ABG HCO3 ABG O2 Saturation Oxyhemoglobin Sodium 132 L Potassium Carbon Dioxide 17 L BUN 57 H Creatinine 2.13 H Estimated GFR 23 L Glucose 170 H POC Capillary Glucose 160 H Magnesium 2.5 H AST Alkaline Phosphatase NT-Pro-B Natriuret Pep 6060 H 06/21/25 09:53 WBC RBC MCV MPV Neut % (Auto) Lymph % (Auto) Abs Immat Gran (auto) Absolute Neuts (auto) APTT ABG pO2 59.1 L ABG HCO3 21.3 L ABG O2 Saturation 90.9 L Oxyhemoglobin 89.2 L Sodium Potassium Carbon Dioxide BUN Creatinine Estimated GFR Glucose POC Capillary Glucose Magnesium AST Alkaline Phosphatase NT-Pro-B Natriuret Pep Diagnostic Findings Additional studies: ITS Impressions Chest X-Ray 06/19/25 17:04 Impression: CHF Chest X-Ray 06/21/25 08:41 IMPRESSION: 1. Findings consistent with vascular congestion and mild persisting pulmonary edema and/or pneumonia.
[2025-06-21] MEDS: FUROSEMIDE INJ 40 MG/4 ML VIAL IV PUSH (11:24)
--- NOTE | 2025-06-21 12:16 | P.CONNP_ITS ---
Assessment and Plan Assessment and plan (1) Acute kidney injury: Code(s): N17.9 - Acute kidney failure, unspecified Status: Acute Assessment and Plan: * as noted on admission (creatinie 2.26mg/dL) * fluctuating since hospitalization began * possible new baseline or element of CKD progression? (see #2) * several issues playing a role: * CHF exacerbation * Afib with RVR * COPD * hypoxia(?) * diuresis * ARB + HCTZ use prior to admission * other(?) * check renal ultrasound and urine studies * follow trend of repeat labs and UOP (2) Stage 3b chronic kidney disease: Code(s): N18.32 - Chronic kidney disease, stage 3b Status: Chronic Assessment and Plan: * baseline creatinine seems to run ~ 1.3 - 1.7mg/dl * however, has been as high as 2.0mg/dl * this causes her to fluctuate between CKD state 3b and stage 4 * secondary to hypertension, diabetes vascular disease (CAD + hyperlipidemia), COPD/DENNIS, and age-related change * follows with Jennifer Chairez NP/Dr. Young for CKD management (3) CHF (congestive heart failure): Qualifiers: Heart failure chronicity: unspecified Heart failure type: unspecified Qualified Code(s): I50.9 - Heart failure, unspecified Code(s): I50.9 - Heart failure, unspecified Status: Acute Assessment and Plan: * suggeste by pulmonary vascular congestion on x-ray and exam * no lower extremity edema * reportedly just discharged from [facility] in December 2024 with heart failure (but not sent home on diuretics), * Echo results noted: * left ventricular systolic function is normal, estimated at 65 - 70% * mitral valve has moderately calcified leaflets and a moderately calcified annulus * mild mitral valve regurgitation * mild tricuspid valve regurgitation * severe pulmonary hypertension, estimated pulmonary arterial systolic pressure is 63 mmHg. * follow I/Os, daily weights, and respiratory status (4) Atrial fibrillation with rapid ventricular response: Code(s): I48.91 - Unspecified atrial fibrillation Status: Acute Assessment and Plan: * admission EKG showed AFib with RVR rate 155 * acheived rate control with IV Cardiazem * on heparin gtt * on sotalol (5) COPD (chronic obstructive pulmonary disease): Code(s): J44.9 - Chronic obstructive pulmonary disease, unspecified Status: Acute Assessment and Plan: * Pulmonary following with recommendations noted * on inhalers * supplemental oxygen PRN (6) Pulmonary hypertension: Code(s): I27.20 - Pulmonary hypertension, unspecified Status: Acute Assessment and Plan: * as seen on echocardiogram with RVSP of 63 mmHg * Pulmonology and Cardiology following (7) Hypertension: Qualifiers: Hypertension type: essential hypertension Qualified Code(s): I10 - Essential (primary) hypertension Code(s): I10 - Essential (primary) hypertension Status: Acute Assessment and Plan: * quite erratic control * off ARB due to #1 * titrate hydralazine * follow trend of hemodynamics (8) Type 2 diabetes mellitus with diabetic chronic kidney disease: Code(s): E11.22 - Type 2 diabetes mellitus with diabetic chronic kidney disease Status: Acute Assessment and Plan: * follow accu-cheks * glycemic control per hospitalist I will continue to follow the patient with you while he remains hospitalized and make further recommendations as deemed necessary. Thank you for allowing me to participate in the care of this patient. L History of Present Illness Reason for Consult Consult date: 06/21/25 Reason for consult: acute renal failure (on chronic kidney disease) Chief Complaint Chief complaint: COPD Exacerbation, AFib with RVR History of Present Illness Narrative: The patient is a 75-year-old female with a past medical history as outlined below who presented to [facility] ER with shortness of breath and palpitations. She has otherwise been in her usual state of health and was recently discharged from [facility] for heart failure exacerbation. the shortness of breath had been going on for last 1-2 days if not longer. As his symptoms continued to progressively worsen call she called EMS further assistance. EMS gave DuoNebs x 2 iand Solu-Medrol in route. She felt as if she was feeling better per her heart was still racing By the time of her arrival to the emergency room. Workup and evaluation emergency room demonstrated the patient to be hemodynamically stable (if not a bit hypertensive) but quite tachycardic. EKG showed EKG showed AFib with RVR rate 155 -- she received IV Cardizem with subsequent rate control wit a repeat EKG demonstrating rate controlled afib. Labs noted a WBC 9600, BUN 46, and serum creatinine 2.26 mg/dl along with a chest x-ray showing pulmonary vascular congestion. Patient given 1 L normal saline, ceftriaxone doxycycline, and heparin GTT started and she was subsequently admitted to further evaluation and therapy. Since her admission she has been seen in consultation by both Cardiology as well as pulmonology in effort to optimize her atrial fibrillation, congestive heart failure and underlying COPD complicated by pulmonary hypertension as well as obstructive sleep apnea. Renal consultation was requested due to her acute kidney injury/acute renal failure on top her baseline chronic kidney disease. The patient normally follows Conchita Chairez NP and Dr. Rashaad Young for management of her underlying chronic kidney disease. Her baseline creatinine runs around 1.3-1.7 mg/dL his thought to be a manifestation of her hypertension, diabetes, congestive heart failure, vascular disease and age-related change. Her creatinine has been a bit higher than baseline since her admission but given her recent hospitalizations for CHF at [facility] had recurrent acute medical issues, is somewhat not unexpected for her renal function to be a bit worse than baseline although I suspect there may be a component of disease progression given her recent exacerbation of her chronic medical issues and. In spite of her fluctuating creatinine during this hospital stay, she has not had any issues or problems with critical electrolyte abnormalities. Her diuretics have been adjusted for her CHF and ongoing efforts to optimize her COPD /obstructive sleep apnea / pulmonary hypertension ongoing. Currently the time my evaluation, she appears to be in no acute distress. Review of Systems 2 Review of Systems: As per HPI. [facility] Past Medical History Medical History Chronic kidney disease, stage 3a Screening for breast cancer Fluid in knee Osteoarthritis of left knee Hemoglobin A1c less than 7.0% 08/29/20 A1c 5.9 Joint effusion of knee Left knee pain Pulmonary nodule Eczema Urine test positive for microalbuminuria Hyperkalemia Allergies Leukocytosis Complications of gastric bypass surgery 1994 Cholecystectomy planned Bradycardia Hypertension CAD (coronary artery disease) Hypothyroidism Gout Sleep apnea Chicken pox Migraine Type 2 diabetes mellitus Bulging disc Osteoarthritis Hernia Heart disease Hyperlipidemia Myocardial infarction COPD (chronic obstructive pulmonary disease) Family History Family History Mother Family history of renal failure Diabetes mellitus Hypertension Sibling Heart disease Diabetes mellitus Father Diabetes mellitus Hypertension Other Family history of coronary artery disease Family history of obesity Social History Social History Smoking status: Former smoker Tobacco type: cigarettes Smoking end date: 08/04/17 Alcohol intake: never Substance use: current Substance use type: marijuana Do You Feel Safe in your Home?: Yes Lack of Transportation: No Lack of Food: Sometimes True Current Housing: I Have Housing Concerned About Future Housing: No Difficulty Paying Gas/Electric Bills: No Difficulty Paying for Meds: No Currently Unemployed: No Education: Grade School Difficulty w/ Childcare or Family Care: No Gender identity (if verbalized by the patient): Female Spiritual care concerns: No Meds Home Medications and Allergies Home Medications ?Medication ?Instructions ?Recorded ?Confirmed ?Type aspirin 81 mg tablet,delayed 81 mg PO DAILY 07/29/19 1 08/20/24 History release (Adult Low Dose Aspirin) dapagliflozin propanediol 10 mg 10 mg PO DAILY 4 06/20/25 History tablet (Farxiga) losartan 100 mg tablet 100 mg PO DAILY #30 tabs 06/20/25 Rx fluticasone propionate 50 1 spray intranasal Q12H #48 grams 02/25/25 06/20/25 Rx mcg/actuation nasal spray,suspension (Flonase Allergy Relief) hydrochlorothiazide 12.5 mg tablet See Rx Instructions .Route 02/25/25 06/20/25 Rx .COMPLEX #180 tabs amlodipine 10 mg tablet See Rx Instructions .Route 0 03/14/25 06/20/25 Rx .COMPLEX #90 tabs atorvastatin 80 mg tablet See Rx Instructions .Route 0 03/14/25 06/20/25 Rx .COMPLEX #90 tabs isosorbide mononitrate 60 mg See Rx Instructions .Maribeth e 03/14/25 06/20/25 Rx tablet,extended release 24 hr .COMPLEX #90 tabs levothyroxine 100 mcg tablet See Rx Instructions .Maribeth e 03/14/25 06/20/25 Rx .COMPLEX #90 tabs allopurinol 100 mg tablet 100 mg PO TID #270 tabs 04/0406/20/25 Rx albuterol sulfate 90 mcg/actuation See Rx Instructions .Route 05/02/25 06/20/25 Rx aerosol inhaler .COMPLEX #42.5 grams hydralazine 50 mg tablet 50 mg PO TID #270 tabs 05/0206/20/25 Rx metformin 1,000 mg tablet 1,000 mg PO DAILY #90 tabs 1 06/20/25 Rx fluticasone fur. 100 mcg-umeclid 1 inh inhalation Q24H #60 ea 05/27/25 06/20/25 Rx 62.5 mcg-vilant 25 mcg inhalat.powder (Trelegy Ellipta) Allergies Allergy/AdvReac Type Severity Reaction Status Date / Time naproxen AdvReac Itching Verified 06/20/25 12:51 Vital Signs Vital Signs Temp Pulse Resp BP Pulse Ox O2 Del Method O2 Flow Rate 06/21/25 12:00 97.8 F 54 L 20 175/42 H 91 06/21/25 12:00 49 L 06/21/25 12:00 90 High Flow Nasal Cannula 12 06/21/25 10:00 48 L 06/21/25 09:45 52 L 20 91 High Flow Nasal Cannula 8 06/21/25 08:15 66 06/21/25 08:00 52 L 06/21/25 07:50 64 22 H 06/21/25 07:49 70 25 H 95 High Flow Therapy with Na 45 06/21/25 07:40 97.8 F 44 L 19 187/61 H 94 06/21/25 07:40 51 L 20 06/21/25 07:38 57 L 22 H 95 CPAP 06/21/25 06:00 58 L 06/21/25 04:23 52 L 19 92 CPAP 06/21/25 04:00 42 L 06/21/25 04:00 98.1 F 54 L 20 143/77 H 92 06/21/25 04:00 93 CPAP 45 06/21/25 02:00 43 L 06/21/25 01:35 50 L 20 90 CPAP 06/21/25 01:34 50 L 20 06/21/25 00:35 55 L 24 H 90 CPAP 06/21/25 00:29 55 L 24 H 87 L CPAP 06/21/25 00:12 183/65 H 89 L High Flow Therapy with Na 45 06/21/25 00:07 66 20 89 L High Flow Therapy with Na 40 06/21/25 00:00 97.8 F 71 21 H 185/53 H 88 L 06/21/25 00:00 66 06/21/25 00:00 89 L High Flow Therapy with Na 45 06/20/25 22:58 51 L 22 H 92 CPAP 06/20/25 22:44 54 L 191/67 H 06/20/25 22:00 55 L 06/20/25 20:32 78 06/20/25 20:20 64 24 H 93 Autopap 06/20/25 20:20 64 24 H 06/20/25 20:10 63 20 06/20/25 20:00 98.3 F 53 L 20 159/48 H 89 L 06/20/25 20:00 65 06/20/25 20:00 90 Autopap 6 Exam 2 Narrative: GENERAL APPEARANCE: elderly but well developed well nourished female HEENT: normocephalic, atraumatic, normal conjunctiva and sclera, nares patient NECK: no lymphadenopathy, thyromegaly, or JVD MOUTH: normal lips, teeth, and gums CARDIOVASCULAR: RRR, normal S1 and S2, no rub detected RESPIRATORY: coarse and decreased breath sounds at bases ABDOMEN: soft, nontender, nondistended, positive bowel sounds present EXTREMITIES: no evidence of cyanosis, clubbing, or edema NEUROLOGICAL: awake and alert; no focal deficits noted Results Lab Results 06/25/25 03:56 06/25/25 03:56 Lab results: Most recent lab results ABG pH 7.401 (7.350-7.450) 06/21/25 09:53 ABG pCO2 35.1 mmHg (35.0-45.0) 06/21/25 09:53 ABG pO2 59.1 mmHg (80.0-100.0) L 06/21/25 09:53 ABG HCO3 21.3 mEq/l (22.0-26.0) L 06/21/25 09:53 ABG O2 Saturation 90.9 % (95.0-100.0) L 06/21/25 09:53 Calcium 8.7 mg/dL (8.4-10.2) 06/21/25 01:44 Magnesium 2.5 mg/dL (1.6-2.3) H 06/21/25 01:44 Urine Creatinine 42.3 mg/dL 06/21/25 13:54
[2025-06-21 15:04] LABS: Urine Eos QC 2nd Tech Confirmed
[2025-06-21 15:08] LABS: Urea Random Urine 319 MG/DL
[2025-06-21 15:10] LABS: Total Protein Urine Random 190 mg/dL; Ur Ttl Prot Creatinine Ratio 4.49 mg/mg (0-0.20)
[2025-06-21] MEDS: HEPARIN SOD/D5W 100 UNITS/ML 25,000 UNITS/250 ML BAG 16 UNITS IV CONT (17:38)
[2025-06-21 19:15] LABS: Partial Thromboplastin Time 89.1 Seconds (22.3-36.8)
[2025-06-21] MEDS: INSULIN ASPART (*BKC) 100 UNITS/ML SUB-Q (20:26)
[2025-06-21] MEDS: ACETAMINOPHEN 500 MG TABLET 1000 MG PO (20:45)
--- NOTE | 2025-06-21 22:07 | PC.NURSE ---
This patient, Vashti Littlejohn, was transferred to [facility] on 06/21/25 at 2158. Personal belongings sent with patient. Report given to Nafisa BEAULIEU. Appropriate documentation sent with patient.
--- NOTE | 2025-06-21 22:45 | PC.NURSE ---
Received patient from ICU. SBAR and verbal report received from Carmina BEAULIEU. No change from previous assessment. belongings within reach and call light in hand. Patient denies needs.
[2025-06-22] VITALS (17 sets, daily range): BP systolic 147–182; BP diastolic 42–58; PULSE 41–62; RESP 18–21; TEMP 36.6–37; O2SAT 90–95
[2025-06-22 01:25] LABS: Hematocrit 35.2 % (37.0-47.0); Hemoglobin 11.5 g/dL (12.0-15.0); Immature Granulocyte Percent A 0.3 % (0-0.5); Lymphocytes Absolute Auto 3.02 K/mm3 (0.9-3.2); Mean Corpuscular HGB Conc 32.7 g/dl (32-36); Mean Corpuscular Hemoglobin 32.8 pg (26-34); Mean Corpuscular Volume 100.3 fl (80-100); Nucleated Red Blood Cells Absolute Auto 0.000 K/mm3 (0.0-0.012); Nucleated Red Blood Cells Perc 0.0 % (0.0-0.2); Platelet Count Result 168 k/mm3 (150-375); Red Blood Count 3.51 M/mm3 (4.2-5.4); White Blood Count 9.4 K/mm3 (4.5-10.0)
[2025-06-22 01:40] LABS: CRP 2.8 mg/dL (<1.0)
[2025-06-22 01:42] LABS: Alanine Aminotransferase 21 U/L (6-35); Albumin Level 3.2 g/dL (3.5-5.1); Alkaline Phosphatase 87 U/L (38-126); Anion Gap 7 mmol/L (4-12); Aspartate Amino Transferase 30 U/L (14-36); Bilirubin,Total 0.5 mg/dL (0.2-1.3); Blood Urea Nitrogen 64 mg/dL (7-17); Calcium 8.3 mg/dL (8.4-10.2); Carbon Dioxide 22 mmol/L (22-30); Chloride 105 mmol/L (98-107); Estimated CRCL calculation 21 ml/min; Estimated Glomerular Filt Rate 21; Glucose 131 mg/dL (65-110); Magnesium 2.3 mg/dL (1.6-2.3); Potassium 4.2 mmol/L (3.4-5.0); Sodium 134 mmol/L (137-145); Total Protein 6.1 g/dL (6.3-8.2)
[2025-06-22 01:47] LABS: Partial Thromboplastin Time 87.9 Seconds (22.3-36.8)
[2025-06-22 02:34] LABS: Procalcitonin 0.1 ng/mL
[2025-06-22] MEDS: LEVOTHYROXINE SODIUM 100 MCG TABLET PO (06:04)
[2025-06-22] MEDS: ACETAMINOPHEN 500 MG TABLET 1000 MG PO ×2 (06:12→21:13)
[2025-06-22] MEDS: FLUTICASONE/UMECLIDIN/VILANTER 100-62.5-25 MCG ELLIPTA 1 PUFF INHALATION (07:44)
--- NOTE | 2025-06-22 07:45 | P.PNIM_ITS ---
Progress Note: A&P Assessment and Plan (1) CHF (congestive heart failure): Qualifiers: Heart failure chronicity: unspecified Heart failure type: unspecified Qualified Code(s): I50.9 - Heart failure, unspecified Code(s): I50.9 - Heart failure, unspecified Status: Acute Assessment and Plan: Pulmonary vascular congestion on x-ray/auscultation of lungs. No lower extremity edema. Reports she was discharged from [facility] in December 2024 with heart failure but not sent home on diuretics. Patient did receive 1 L normal saline bolus in the ER, -admitted with AFib with RVR is controlled we will monitor. Continue heparin gtt. - Daily weights, strict intake/output. -Pt diagnosed with CHF December 2024 with no new meds. -06/21: V/Q scan showed intermediate probability for PE -06/21: overnight patient had increased oxygen requirements, currently on 8 L nasal cannula -06/21: Chest x-ray showed pulmonary vascular congestion, will give Lasix - patient may have HFpEF since she has diastolic dysfunction as seen on echocardiogram is under which could be related to her systemic hypertension and pulmonary hypertension 06/20/25: Echocardiogram Summary 1. Definity contrast administered improved wall motion interpretation. 2. Left ventricular chamber dimension is normal. 3. Left ventricular systolic function is normal, estimated at 65-70. 4. There is moderate concentric increased left ventricular wall thickness. 5. E/e' 48 is significantly elevated. 6. Left atrial chamber dimension is severely enlarged. 7. The mitral valve has moderately calcified leaflets and a moderately calcified annulus. 8. There is mild mitral valve regurgitation. 9. There is mild tricuspid valve regurgitation. 10. Severe pulmonary hypertension, estimated pulmonary arterial systolic pressure is 63 mmHg. 11. Dilated inferior vena cava with >50% collapse upon inspiration consistent with elevated right atrial pressure, 10 mmHg. (2) Atrial fibrillation with rapid ventricular response: Code(s): I48.91 - Unspecified atrial fibrillation Status: Acute Assessment and Plan: ED EKG showed AFib with RVR rate 155, patient received Cardizem 15 mg IV x1, with subsequent rate control an EKG demonstrating AFib. Shortness of breath resolved. Currently AFib with controlled rate. Continue heparin GTT. -appreciate cardiology evaluation recommendation -06/20: started on sotalol b.i.d. which has been decreased to once daily due to bradycardia (on 06/21) -TSH within normal limits, -magnesium and potassium levels within normal limits -continue IMU status -will discuss with Cardiology regarding switching to Eliquis -echocardiogram as above (3) DEBBIE (acute kidney injury): Code(s): N17.9 - Acute kidney failure, unspecified Status: Acute Assessment and Plan: Now that her AFib with RVR is controlled we will monitor. Daily weights, strict intake/output. -1L given in ED, pt with CHF hx (new December 2024) -DEBBIE could be related to elevated blood pressure, CHF, atrial fibrillation 06/20: Creatinine baseline seems to be around 1.3-1.6, -creatinine gradually improving -continue blood pressure medications -will consult Nephrology (4) Chronic kidney disease, stage 3b: Code(s): N18.32 - Chronic kidney disease, stage 3b Status: Acute Assessment and Plan: Holding losartan Increasing hydralazine from 75 mg to 100 q.i.d. (5) COPD (chronic obstructive pulmonary disease): Code(s): J44.9 - Chronic obstructive pulmonary disease, unspecified Status: Acute Assessment and Plan: Mild COPD exacerbation, her symptoms could have been related to AFib and pulmonary vascular congestion. received Solu-Medrol with EMS. Restart PROBATE PARALEGAL controller medications. 06/20: Pt with clear lungs today -Steroids given in ED, if wheezing continues, may give additional steroids. -06/21: Increasing oxygen requirements. - Appreciate pulmonology evaluation -patient with HFpEF, possible COPD, possible PE as V/Q scan on 06/21 showed intermediate probability -continue anticoagulation -continue Trelegy per pulmonology (6) CAD (coronary artery disease): Qualifiers: Associated angina: unspecified whether angina present Coronary Disease- Associated Artery/Lesion type: unspecified vessel or lesion type [place] vs. transplanted heart: unspecified whether [place] or transplanted heart Qualified Code(s): I25.10 - Atherosclerotic heart disease of [place] coronary artery without angina pectoris Code(s): I25.10 - Atherosclerotic heart disease of [place] coronary artery without angina pectoris Status: Acute Assessment and Plan: 06/20: S/p stents. Resume PROBATE PARALEGAL aspirin and atorvastatin. (7) Type 2 diabetes mellitus with diabetic chronic kidney disease: Code(s): E11.22 - Type 2 diabetes mellitus with diabetic chronic kidney disease Status: Acute Assessment and Plan: Accu-Cheks ACHS with low-dose insulin sliding scale and hypoglycemia protocol. (8) Hypertension: Qualifiers: Hypertension type: essential hypertension Qualified Code(s): I10 - Essential (primary) hypertension Code(s): I10 - Essential (primary) hypertension Status: Acute Assessment and Plan: Acute on chronic. PROBATE PARALEGAL antihypertensives once med rec entered. Patient does state that her blood pressures are normally in the 160s to 180s range 06/20: Restarted Pt home meds: losartan 100mg, hctz 25mg, -increase hydralazine to 75 mg Q i.d. -Continue to monitor (9) Pulmonary hypertension: Code(s): I27.20 - Pulmonary hypertension, unspecified Status: Acute Assessment and Plan: Severe pulmonary hypertension as seen on echocardiogram with RVSP of 63 mmHg -pulmonology and cardiology following the patient Plan DVT prophylaxis: Heparin infusion Stress ulcer prophylaxis: Not indicated Nutrition: Diabetic and heart healthy diet Code Status: DNR Subjective Date/time seen: 06/22/25 07:45 Interval history: Reason for hospitalization: COPD exacerbation, AFib RVR, heart failure, acute kidney injury 06/21/2025: Patient being seen for hospitalist group Is awake, alert, oriented, states she is complaining of shortness of breath this morning. Her oxygen requirements have increased overnight. She was on BiPAP and was switched to high-flow therapy.. Denies any chest pain, abdominal pain, nausea vomiting at this time. Chest x-ray shows pulmonary vascular congestion. Patient was bradycardic overnight with heart rates in the 30s and 40s. Urine output has been adequate, afebrile. 06/22: Patient is currently on high-flow nasal cannula with oxygen flow rate of 11 L. Echocardiogram shows a normal left ventricular ejection fraction but severe pulmonary hypertension. Discussed with Nephrology. Holding losartan and increased hydralazine from 75 to 100 mg q.i.d. Review of Systems Review of Systems: All systems reviewed & are unremarkable except as noted in HPI and below Exam Narrative: General: Pleasant female, having some shortness of breath HEENT:? Pupils equal reactive, sclera is clear, moist oral mucosa Neck:? Supple Respiratory:? Coarse breath sounds bilaterally, decreased at bases, no wheezing Cardiac:? Is irregularly irregular, rate controlled/bradycardia Abdomen:? Soft, nontender, nondistended, protuberant, normoactive bowel sounds Extremities:? Extremities are warm, no cyanosis, no edema Neuro:? Patient is awake, alert, oriented, nonfocal, follows simple commands and answers questions appropriately Skin:? No lesions noted Psych:? Normal mentation and affect Const: General: comfortable and no acute distress Other: A&O x4, obese HENMT: Mouth: Yes moist mucous membranes Eyes: General: appearance normal, both eyes and all related structures Sclera: sclerae normal Pupils: Equal, round and reactive pupils present Neck: Neck: supple Carotids: no bruits Resp: Effort & Inspection: normal respiratory effort Other: Diminished lung sounds, no wheezes present. Tachypneic initially, resolved Cardio: Rate: regular rate Rhythm: regular rhythm and abnormal rhythm Other: Tele: 61bpm GI: Inspection: non-distended Auscultation: normal bowel sounds : General: Yes bladder normal to palpation Bimanual exam- vagina & uterus: bladder normal to palpation Skin: General skin exam: normal color and no rashes or lesions noted Neuro: Cranial nerves: Yes Equal, round and reactive pupils present Motor exam (neuro): 5/5 motor strength present throughout and Normal motor muscle tone present throughout Sensory Exam: normal sensation Extrem: General: no edema Psych: Mental Status: mental status grossly normal Affect: normal affect Objective Data Vital Signs Vital Signs: Vital Signs - 24 hr 06/21/25 07:49 06/21/25 07:50 06/21/25 08:00 Temperature Pulse Rate 70 64 52 L Respiratory Rate 25 H 22 H Blood Pressure Pulse Oximetry 95 Oxygen Delivery High Flow Therapy with Na Oxygen Flow Rate 45 Fraction of Inspired Oxygen 55 06/21/25 08:15 06/21/25 09:45 06/21/25 10:00 Temperature Pulse Rate 66 52 L 48 L Respiratory Rate 20 Blood Pressure Pulse Oximetry 91 Oxygen Delivery High Flow Nasal Cannula Oxygen Flow Rate 8 Fraction of Inspired Oxygen 06/21/25 12:00 06/21/25 12:00 06/21/25 12:00 Temperature 97.8 F Pulse Rate 49 L 54 L Respiratory Rate 20 Blood Pressure 175/42 H Pulse Oximetry 90 91 Oxygen Delivery High Flow Nasal Cannula Oxygen Flow Rate 12 Fraction of Inspired Oxygen 06/21/25 12:32 06/21/25 14:00 06/21/25 16:00 Temperature 98.1 F Pulse Rate 56 L 51 L Respiratory Rate 19 Blood Pressure 160/46 H 172/46 H Pulse Oximetry 91 Oxygen Delivery Oxygen Flow Rate Fraction of Inspired Oxygen 06/21/25 16:00 06/21/25 16:00 06/21/25 17:14 Temperature Pulse Rate 66 58 L Respiratory Rate 20 Blood Pressure Pulse Oximetry 94 93 Oxygen Delivery High Flow Nasal Cannula High Flow Nasal Cannula Oxygen Flow Rate 12 15 Fraction of Inspired Oxygen 06/21/25 18:00 06/21/25 19:25 06/21/25 19:47 Temperature Pulse Rate 68 74 74 Respiratory Rate 20 Blood Pressure Pulse Oximetry 93 93 Oxygen Delivery High Flow Nasal Cannula High Flow Nasal Cannula Oxygen Flow Rate 13 Fraction of Inspired Oxygen 06/21/25 20:00 06/21/25 20:00 06/21/25 20:00 Temperature 100.2 F H Pulse Rate 57 L 57 L Respiratory Rate 22 H Blood Pressure 172/45 H Pulse Oximetry 92 91 Oxygen Delivery High Flow Nasal Cannula Oxygen Flow Rate 11 Fraction of Inspired Oxygen 06/21/25 20:05 06/21/25 20:27 06/21/25 20:45 Temperature 100.2 F H Pulse Rate 55 L 55 L Respiratory Rate 20 20 Blood Pressure Pulse Oximetry 94 Oxygen Delivery High Flow Nasal Cannula Oxygen Flow Rate 11 Fraction of Inspired Oxygen 06/21/25 21:45 06/21/25 22:00 06/21/25 22:00 Temperature 99.5 F Pulse Rate 78 Respiratory Rate 20 Blood Pressure Pulse Oximetry 89 L Oxygen Delivery BiPAP High Flow Nasal Cannula Oxygen Flow Rate 8 Fraction of Inspired Oxygen 06/21/25 22:30 06/21/25 22:50 06/22/25 00:00 Temperature Pulse Rate 53 L 56 L 45 L Respiratory Rate 22 H Blood Pressure Pulse Oximetry 92 Oxygen Delivery CPAP Oxygen Flow Rate Fraction of Inspired Oxygen 06/22/25 00:00 06/22/25 00:00 06/22/25 02:00 Temperature 98.6 F Pulse Rate 48 L 48 L Respiratory Rate 21 H Blood Pressure 160/42 H Pulse Oximetry 94 95 Oxygen Delivery High Flow Nasal Cannula Oxygen Flow Rate 12 Fraction of Inspired Oxygen 06/22/25 02:18 06/22/25 04:00 06/22/25 04:00 Temperature Pulse Rate 44 L 41 L Respiratory Rate 21 H Blood Pressure Pulse Oximetry 90 94 Oxygen Delivery CPAP High Flow Nasal Cannula Oxygen Flow Rate 12 Fraction of Inspired Oxygen 06/22/25 04:00 06/22/25 06:19 Temperature 98.2 F Pulse Rate 52 L 59 L Respiratory Rate 20 Blood Pressure 182/42 H Pulse Oximetry 94 Oxygen Delivery Oxygen Flow Rate Fraction of Inspired Oxygen Intake/Output Intake/Output: Intake & Output 06/19/25 06/20/25 06/21/25 06/22/25 23:59 23:59 23:59 23:59 Intake Total 1200 721.6 1330.3 152.7 Output Total 350 1400 0 Balance 1200 371.6 -69.7 152.7 Meds/Results Medications: Active Medications Generic Name Dose Route Start Last Admin Trade Name Freq PRN Reason Stop Dose Admin Acetaminophen 1,000 mg 06/19/25 22:44 06/22/25 06:12 Acetaminophen 500 Mg Tablet PO 1,000 mg TID PRN Administration Mild Pain (1-3) or Fever Allopurinol 100 mg 06/23/25 09:00 Allopurinol 100 Mg Tablet PO Q48HR [facility] Amlodipine Besylate 10 mg 06/20/25 09:00 06/21/25 07:48 Amlodipine Besylate 10 Mg Tablet BY MOUTH 10 mg DAILY DAVID Administration Aspirin 81 mg 06/20/25 09:00 06/21/25 07:48 Aspirin 81 Mg Enteric Tablet PO 81 mg DAILY DAVID Administration Atorvastatin Calcium 80 mg 06/20/25 09:55 06/21/25 07:47 Atorvastatin 40 Mg Tablet PO 80 mg DAILY DAVID Administration Dextrose 12.5 gm 06/19/25 21:30 Dextrose 50% 25 Gm/50 Ml Syringe IV PUSH PRN PRN Hypoglycemia Protocol Fluticasone Propionate 1 spray 06/20/25 09:00 06/21/25 20:26 Fluticasone Propionate 0.05% Na Spr 16 Gm Btl (*Bkc) NASAL 1 spray Q12H DAVID Administration Fluticasone/Umeclidinium/Vilanterol 1 puff 06/20/25 09:00 06/22/25 07:44 Fluticasone/Umeclidin/Vilanter 100-62.5-25 Mcg Ellipta INHALATION 1 puff Q24H DAVID Administration Glucose 15 gm 06/19/25 21:30 Glucose Oral Gel 15 Gm Of Glucse In 37.5 Gm Tube PO PRN PRN Hypoglycemia Protocol Heparin Sodium (Porcine) 5,500 units 06/19/25 19:03 06/21/25 02:12 Heparin Sodium 5,000 Units/Ml Vial IV PUSH 5,500 units PRN PRN Administration aPTT less than 55 seconds Heparin Sodium (Porcine) 2,500 units 06/19/25 19:03 06/20/25 13:30 Heparin Sodium 5,000 Units/Ml Vial IV PUSH 2,500 units PRN PRN Administration aPTT 55 - 70 seconds Hydralazine HCl 75 mg 06/21/25 13:00 06/21/25 20:26 Hydralazine Hcl 25 Mg Tablet PO 75 mg QID DAVID Administration Hydrochlorothiazide 12.5 mg 06/20/25 09:50 06/21/25 07:48 Hydrochlorothiazide 12.5 Mg Capsule PO 12.5 mg DAILY DAVID Administration Heparin Sodium/Dextrose 25,000 units in 250 mls @ 16 mls/hr 06/19/25 19:05 06/22/25 01:55 Heparin Sodium/D5w 100 Units/Ml IV CONT 1,600 units/hr .[id number] DAVID 16 mls/hr Protocol Titration 1,600 UNITS/HR Dextrose 1,000 mls @ 100 mls/hr 06/19/25 21:30 Dextrose 5% 1,000 Ml IVPB PRN PRN Hypoglycemia Protocol Ceftriaxone Sodium 1 gm/ 50 mls @ 100 mls/hr 06/22/25 07:30 Sodium Chloride IVPB Q24H DAVID Levofloxacin/Dextrose 750 mg in 150 mls @ 100 mls/hr 06/22/25 09:00 Levaquin 750 Mg/D5w 150 Ml IVPB Q48HR DAVID Insulin Aspart 2 - 5 units 06/20/25 08:00 06/21/25 17:37 Insulin Aspart (*Bkc) 100 Units/Ml SUB-Q Not Given TIDWM DAVID Protocol Insulin Aspart 1 - 2 units 06/20/25 21:00 06/21/25 20:26 Insulin Aspart (*Bkc) 100 Units/Ml SUB-Q 1 units HS DAVID Administration Protocol Isosorbide Mononitrate 60 mg 06/20/25 09:50 06/21/25 07:48 Isosorbide Mononitrate 60 Mg Tab.Er.24h PO 60 mg DAILY DAVID Administration Levalbuterol HCl 0.63 mg 06/21/25 19:41 06/21/25 20:05 Levalbuterol Neb 1.25 Mg/3 Ml INHALATION 0.63 mg Q6HRT PRN Administration shortness of breath Levothyroxine Sodium 100 mcg 06/21/25 06:30 06/22/25 06:04 Levothyroxine Sodium 100 Mcg Tablet PO 100 mcg DAILY@0630 DAVID Administration Losartan Potassium 100 mg 06/20/25 09:00 06/21/25 07:47 Losartan Potassium 100 Mg Tablet PO 100 mg DAILY DAVID Administration Perflutren Lipid Microsphere 0 ml 06/21/25 10:46 Perflutren Lipid Microspheres 1.5 Ml Vial Diluted To 10 Ml Total Volume IV PUSH 06/24/25 10:46 ONCE PRN adequate visualization Protocol Sotalol HCl 40 mg 06/21/25 09:00 06/21/25 08:15 Sotalol Hcl 40 Mg Tablet PO 40 mg DAILY DAVID Administration Radiology Results: ITS Impressions Pulmonary Perfusion Imaging 06/21/25 11:25 IMPRESSION: No compelling or large segmental size areas of mismatch, and with right base findings on today's chest x-ray, the perfusion mismatch in the right base is of uncertain significance. Per PIOPED criteria, this is an indeterminate INTERMEDIATE probability for pulmonary embolus. Renal Ultrasound 06/21/25 13:56 IMPRESSION: 1. Normal kidneys without hydronephrosis. Chest CT 06/21/25 14:30 IMPRESSION: 1. Bibasilar consolidations likely associated with aspiration versus community- acquired pneumonia. Mucoid appearing changes in the bronchi endotracheal air column support aspiration. Findings should be followed radiographically until clear. 2. Other chronic appearing findings. Labs Labs: Laboratory Results - last 24 hr 06/21/25 06/21/25 06/21/25 07:38 08:15 09:53 WBC RBC Hgb Hct MCV MCH MCHC RDW Plt Count MPV Immature Gran % (Auto) Neut % (Auto) Lymph % (Auto) [place] % (Auto) Eos % (Auto) Baso % (Auto) Lymph # (Auto) [place] # (Auto) Eos # (Auto) Baso # (Auto) Abs Immat Gran (auto) Absolute Neuts (auto) Absolute Nucleated RBC Nucleated RBC % APTT > 200.0 H* Puncture Site Left radial ABG pH 7.401 ABG pCO2 35.1 ABG pO2 59.1 L ABG PO2/FiO2 Ratio 1.14 ABG HCO3 21.3 L ABG O2 Saturation 90.9 L ABG O2 Content 16.6 ABG Base Excess -2.8 A-a Gradient 272.4 Oxyhemoglobin 89.2 L Total Hemoglobin 13.2 O2 Delivery Device High flow nasal boris O2 Liters/Min 8.0 FiO2 52 Sodium Potassium Chloride Carbon Dioxide Anion Gap BUN Creatinine Estim Creat Clear Calc Estimated GFR Glucose POC Capillary Glucose 160 H Calcium Magnesium Total Bilirubin AST ALT Alkaline Phosphatase C-Reactive Protein NT-Pro-B Natriuret Pep 6060 H Total Protein Albumin Procalcitonin Free T4 1.37 Urine Eosinophils U Random Total Protein Ur Random Sodium Ur Random Urea Urine Creatinine Protein/Creat Ratio 2 06/21/25 06/21/25 06/21/25 11:42 13:54 16:17 WBC RBC Hgb Hct MCV MCH MCHC RDW Plt Count MPV Immature Gran % (Auto) Neut % (Auto) Lymph % (Auto) [place] % (Auto) Eos % (Auto) Baso % (Auto) Lymph # (Auto) [place] # (Auto) Eos # (Auto) Baso # (Auto) Abs Immat Gran (auto) Absolute Neuts (auto) Absolute Nucleated RBC Nucleated RBC % APTT Puncture Site ABG pH ABG pCO2 ABG pO2 ABG PO2/FiO2 Ratio ABG HCO3 ABG O2 Saturation ABG O2 Content ABG Base Excess A-a Gradient Oxyhemoglobin Total Hemoglobin O2 Delivery Device O2 Liters/Min FiO2 Sodium Potassium Chloride Carbon Dioxide Anion Gap BUN Creatinine Estim Creat Clear Calc Estimated GFR Glucose POC Capillary Glucose 164 H 165 H Calcium Magnesium Total Bilirubin AST ALT Alkaline Phosphatase C-Reactive Protein NT-Pro-B Natriuret Pep Total Protein Albumin Procalcitonin Free T4 Urine Eosinophils None seen U Random Total Protein 190 Ur Random Sodium 67 Ur Random Urea 319 Urine Creatinine 42.3 Protein/Creat Ratio 2 4.49 H 06/21/25 06/21/25 06/22/25 18:23 20:22 01:17 WBC RBC Hgb Hct MCV MCH MCHC RDW Plt Count MPV Immature Gran % (Auto) Neut % (Auto) Lymph % (Auto) [place] % (Auto) Eos % (Auto) Baso % (Auto) Lymph # (Auto) [place] # (Auto) Eos # (Auto) Baso # (Auto) Abs Immat Gran (auto) Absolute Neuts (auto) Absolute Nucleated RBC Nucleated RBC % APTT 89.1 H 87.9 H Puncture Site ABG pH ABG pCO2 ABG pO2 ABG PO2/FiO2 Ratio ABG HCO3 ABG O2 Saturation ABG O2 Content ABG Base Excess A-a Gradient Oxyhemoglobin Total Hemoglobin O2 Delivery Device O2 Liters/Min FiO2 Sodium Potassium Chloride Carbon Dioxide Anion Gap BUN Creatinine Estim Creat Clear Calc Estimated GFR Glucose POC Capillary Glucose 245 H Calcium Magnesium Total Bilirubin AST ALT Alkaline Phosphatase C-Reactive Protein NT-Pro-B Natriuret Pep Total Protein Albumin Procalcitonin Free T4 Urine Eosinophils U Random Total Protein Ur Random Sodium Ur Random Urea Urine Creatinine Protein/Creat Ratio 2 06/22/25 01:18 WBC 9.4 RBC 3.51 L Hgb 11.5 L Hct 35.2 L MCV 100.3 H MCH 32.8 MCHC 32.7 RDW 14.3 Plt Count 168 MPV 10.8 H Immature Gran % (Auto) 0.3 Neut % (Auto) 60.7 Lymph % (Auto) 32.0 [place] % (Auto) 5.7 Eos % (Auto) 1.0 Baso % (Auto) 0.3 Lymph # (Auto) 3.02 [place] # (Auto) 0.5 Eos # (Auto) 0.1 Baso # (Auto) 0.0 Abs Immat Gran (auto) 0.03 Absolute Neuts (auto) 5.7 Absolute Nucleated RBC 0.000 Nucleated RBC % 0.0 APTT Puncture Site ABG pH ABG pCO2 ABG pO2 ABG PO2/FiO2 Ratio ABG HCO3 ABG O2 Saturation ABG O2 Content ABG Base Excess A-a Gradient Oxyhemoglobin Total Hemoglobin O2 Delivery Device O2 Liters/Min FiO2 Sodium 134 L Potassium 4.2 Chloride 105 Carbon Dioxide 22 Anion Gap 7 BUN 64 H Creatinine 2.23 H Estim Creat Clear Calc 21 Estimated GFR 21 L Glucose 131 H POC Capillary Glucose Calcium 8.3 L Magnesium 2.3 Total Bilirubin 0.5 AST 30 ALT 21 Alkaline Phosphatase 87 C-Reactive Protein 2.8 H NT-Pro-B Natriuret Pep Total Protein 6.1 L Albumin 3.2 L Procalcitonin 0.1 Free T4 Urine Eosinophils U Random Total Protein Ur Random Sodium Ur Random Urea Urine Creatinine Protein/Creat Ratio 2 Quality VTE Prophylaxis VTE prophylaxis: pharmacologic ordered (Heparin gtt) Hospitalist MIPS Advance Care Plan I have confirmed that the patient's Advanced Care Plan is present, code status is documented, or surrogate decision maker is listed in patient medical record.: Yes Medication Reconciliation I have utilized all available resources to obtain, update and review the patients current medications (includes all prescriptions, OTC, herbals, cannabis, and nutritional supplements).: Yes
--- NOTE | 2025-06-22 07:58 | P.PNCA_ITS ---
Progress Note: A&P Assessment and Plan (1) Atrial fibrillation with rapid ventricular response: Code(s): I48.91 - Unspecified atrial fibrillation Status: Acute Assessment and Plan: Back in sinus rhythm. [id number] 5. On heparin drip. Upon discharge will change heparin to Eliquis 2.5 mg BID. Start 06/20/25 Sotalol. Monitor EKG. On low dose Sotalol 40 mg in AM given her overnight HR drops to mid 30's bpm. (2) CAD (coronary artery disease): Qualifiers: Coronary Disease-Associated Artery/Lesion type: unspecified vessel or lesion type [place] vs. transplanted heart: unspecified whether [place] or transplanted heart Associated angina: unspecified whether angina present Qualified Code(s): I25.10 - Atherosclerotic heart disease of [place] coronary artery without angina pectoris Code(s): I25.10 - Atherosclerotic heart disease of [place] coronary artery without angina pectoris Status: Acute Assessment and Plan: Stable. (3) Hypertension: Qualifiers: Hypertension type: essential hypertension Qualified Code(s): I10 - Essential (primary) hypertension Code(s): I10 - Essential (primary) hypertension Status: Acute Assessment and Plan: High. Monitor BP. Consider Clonidine but may drop her HR. (4) Hyperlipidemia: Qualifiers: Hyperlipidemia type: mixed hyperlipidemia Qualified Code(s): E78.2 - Mixed hyperlipidemia Code(s): E78.5 - Hyperlipidemia, unspecified Status: Acute Assessment and Plan: On Atorvastatin. (5) COPD (chronic obstructive pulmonary disease): Code(s): J44.9 - Chronic obstructive pulmonary disease, unspecified Status: Acute (6) CHF (congestive heart failure): Qualifiers: Heart failure chronicity: unspecified Heart failure type: unspecified Qualified Code(s): I50.9 - Heart failure, unspecified Code(s): I50.9 - Heart failure, unspecified Status: Acute Assessment and Plan: Appears euvolemic. 06/20/25 Echo: EF 65-70%, mod LVH, significant diastolic dysfunction (E/e' 48), severe LAE, mod MAC/MV calcification, mild MR/TR, RVSP 63 mmHg. Subjective Date/time seen: 06/22/25 07:58 Interval history: She has sob but better than yesterday. No chest pain. Exam Const: General: cooperative, healthy appearing and comfortable O rientation/consciousness: oriented to person, oriented to place and oriented to time Resp: Auscultation: no crackles, no rales, no rhonchi, no wheezes and diminished lung sounds Cardio: Rate: bradycardic Rhythm: regular rhythm Heart sounds: no murmurs Peripheral pulses: dorsalis pedis present Neuro: General: oriented to person, oriented to place and oriented to time Extrem: Right lower extremity: no edema Left lower extremity: no edema Objective Data Vital Signs Vital Signs: Vital Signs - 24 hr 06/21/25 08:00 06/21/25 08:15 06/21/25 09:45 Temperature Pulse Rate 52 L 66 52 L Respiratory Rate 20 Blood Pressure Pulse Oximetry 91 Oxygen Delivery High Flow Nasal Cannula Oxygen Flow Rate 8 06/21/25 10:00 06/21/25 12:00 06/21/25 12:00 Temperature Pulse Rate 48 L 49 L Respiratory Rate Blood Pressure Pulse Oximetry 90 Oxygen Delivery High Flow Nasal Cannula Oxygen Flow Rate 12 06/21/25 12:00 06/21/25 12:32 06/21/25 14:00 Temperature 97.8 F Pulse Rate 54 L 56 L Respiratory Rate 20 Blood Pressure 175/42 H 160/46 H Pulse Oximetry 91 Oxygen Delivery Oxygen Flow Rate 06/21/25 16:00 06/21/25 16:00 06/21/25 16:00 Temperature 98.1 F Pulse Rate 51 L 66 Respiratory Rate 19 Blood Pressure 172/46 H Pulse Oximetry 91 94 Oxygen Delivery High Flow Nasal Cannula Oxygen Flow Rate 12 06/21/25 17:14 06/21/25 18:00 06/21/25 19:25 Temperature Pulse Rate 58 L 68 74 Respiratory Rate 20 20 Blood Pressure Pulse Oximetry 93 93 Oxygen Delivery High Flow Nasal Cannula High Flow Nasal Cannula Oxygen Flow Rate 15 13 06/21/25 19:47 06/21/25 20:00 06/21/25 20:00 Temperature 100.2 F H Pulse Rate 74 57 L Respiratory Rate 22 H Blood Pressure 172/45 H Pulse Oximetry 93 92 91 Oxygen Delivery High Flow Nasal Cannula High Flow Nasal Cannula Oxygen Flow Rate 11 06/21/25 20:00 06/21/25 20:05 06/21/25 20:27 Temperature Pulse Rate 57 L 55 L 55 L Respiratory Rate 20 20 Blood Pressure Pulse Oximetry 94 Oxygen Delivery High Flow Nasal Cannula Oxygen Flow Rate 11 06/21/25 20:45 06/21/25 21:45 06/21/25 22:00 Temperature 100.2 F H 99.5 F Pulse Rate Respiratory Rate Blood Pressure Pulse Oximetry Oxygen Delivery BiPAP Oxygen Flow Rate 06/21/25 22:00 06/21/25 22:30 06/21/25 22:50 Temperature Pulse Rate 78 53 L 56 L Respiratory Rate 20 22 H Blood Pressure Pulse Oximetry 89 L 92 Oxygen Delivery High Flow Nasal Cannula CPAP Oxygen Flow Rate 8 06/22/25 00:00 06/22/25 00:00 06/22/25 00:00 Temperature 98.6 F Pulse Rate 45 L 48 L Respiratory Rate 21 H Blood Pressure 160/42 H Pulse Oximetry 94 95 Oxygen Delivery High Flow Nasal Cannula Oxygen Flow Rate 12 06/22/25 02:00 06/22/25 02:18 06/22/25 04:00 Temperature Pulse Rate 48 L 44 L Respiratory Rate 21 H Blood Pressure Pulse Oximetry 90 94 Oxygen Delivery CPAP High Flow Nasal Cannula Oxygen Flow Rate 12 06/22/25 04:00 06/22/25 04:00 06/22/25 06:19 Temperature 98.2 F Pulse Rate 41 L 52 L 59 L Respiratory Rate 20 Blood Pressure 182/42 H Pulse Oximetry 94 Oxygen Delivery Oxygen Flow Rate 06/22/25 07:44 06/22/25 07:56 Temperature 98.3 F Pulse Rate 49 L Respiratory Rate 18 Blood Pressure 156/58 H Pulse Oximetry 92 92 Oxygen Delivery High Flow Nasal Cannula Oxygen Flow Rate 11 Intake/Output Intake/Output: Intake & Output 06/19/25 06/20/25 06/21/25 06/22/25 23:59 23:59 23:59 23:59 Intake Total 1200 721.6 1330.3 152.7 Output Total 350 1400 0 Balance 1200 371.6 -69.7 152.7 Meds/Results Medications: Active Medications Generic Name Dose Route Start Last Admin Trade Name Freq PRN Reason Stop Dose Admin Acetaminophen 1,000 mg 06/19/25 22:44 06/22/25 06:12 Acetaminophen 500 Mg Tablet PO 1,000 mg TID PRN Administration Mild Pain (1-3) or Fever Allopurinol 100 mg 06/23/25 09:00 Allopurinol 100 Mg Tablet PO Q48HR [facility] Amlodipine Besylate 10 mg 06/20/25 09:00 06/21/25 07:48 Amlodipine Besylate 10 Mg Tablet BY MOUTH 10 mg DAILY DAVID Administration Aspirin 81 mg 06/20/25 09:00 06/21/25 07:48 Aspirin 81 Mg Enteric Tablet PO 81 mg DAILY DAVID Administration Atorvastatin Calcium 80 mg 06/20/25 09:55 06/21/25 07:47 Atorvastatin 40 Mg Tablet PO 80 mg DAILY DAVID Administration Dextrose 12.5 gm 06/19/25 21:30 Dextrose 50% 25 Gm/50 Ml Syringe IV PUSH PRN PRN Hypoglycemia Protocol Fluticasone Propionate 1 spray 06/20/25 09:00 06/21/25 20:26 Fluticasone Propionate 0.05% Na Spr 16 Gm Btl (*Bkc) NASAL 1 spray Q12H DAVID Administration Fluticasone/Umeclidinium/Vilanterol 1 puff 06/20/25 09:00 06/22/25 07:44 Fluticasone/Umeclidin/Vilanter 100-62.5-25 Mcg Ellipta INHALATION 1 puff Q24H DAVID Administration Glucose 15 gm 06/19/25 21:30 Glucose Oral Gel 15 Gm Of Glucse In 37.5 Gm Tube PO PRN PRN Hypoglycemia Protocol Heparin Sodium (Porcine) 5,500 units 06/19/25 19:03 06/21/25 02:12 Heparin Sodium 5,000 Units/Ml Vial IV PUSH 5,500 units PRN PRN Administration aPTT less than 55 seconds Heparin Sodium (Porcine) 2,500 units 06/19/25 19:03 06/20/25 13:30 Heparin Sodium 5,000 Units/Ml Vial IV PUSH 2,500 units PRN PRN Administration aPTT 55 - 70 seconds Hydralazine HCl 75 mg 06/21/25 13:00 06/21/25 20:26 Hydralazine Hcl 25 Mg Tablet PO 75 mg QID DAVID Administration Hydrochlorothiazide 12.5 mg 06/20/25 09:50 06/21/25 07:48 Hydrochlorothiazide 12.5 Mg Capsule PO 12.5 mg DAILY DAVID Administration Heparin Sodium/Dextrose 25,000 units in 250 mls @ 16 mls/hr 06/19/25 19:05 06/22/25 01:55 Heparin Sodium/D5w 100 Units/Ml IV CONT 1,600 units/hr .[id number] DAVID 16 mls/hr Protocol Titration 1,600 UNITS/HR Dextrose 1,000 mls @ 100 mls/hr 06/19/25 21:30 Dextrose 5% 1,000 Ml IVPB PRN PRN Hypoglycemia Protocol Ceftriaxone Sodium 1 gm/ 50 mls @ 100 mls/hr 06/22/25 09:00 Sodium Chloride IVPB Q24H DAVID Levofloxacin/Dextrose 750 mg in 150 mls @ 100 mls/hr 06/22/25 09:00 Levaquin 750 Mg/D5w 150 Ml IVPB Q48HR DAVID Insulin Aspart 2 - 5 units 06/20/25 08:00 06/21/25 17:37 Insulin Aspart (*Bkc) 100 Units/Ml SUB-Q Not Given TIDWM [facility] Protocol Insulin Aspart 1 - 2 units 06/20/25 21:00 06/21/25 20:26 Insulin Aspart (*Bkc) 100 Units/Ml SUB-Q 1 units HS DAVID Administration Protocol Isosorbide Mononitrate 60 mg 06/20/25 09:50 06/21/25 07:48 Isosorbide Mononitrate 60 Mg Tab.Er.24h PO 60 mg DAILY DAVID Administration Levalbuterol HCl 0.63 mg 06/21/25 19:41 06/21/25 20:05 Levalbuterol Neb 1.25 Mg/3 Ml INHALATION 0.63 mg Q6HRT PRN Administration shortness of breath Levothyroxine Sodium 100 mcg 06/21/25 06:30 06/22/25 06:04 Levothyroxine Sodium 100 Mcg Tablet PO 100 mcg DAILY@0630 DAVID Administration Losartan Potassium 100 mg 06/20/25 09:00 06/21/25 07:47 Losartan Potassium 100 Mg Tablet PO 100 mg DAILY DAVID Administration Perflutren Lipid Microsphere 0 ml 06/21/25 10:46 Perflutren Lipid Microspheres 1.5 Ml Vial Diluted To 10 Ml Total Volume IV PU SH 06/24/25 10:46 ONCE PRN adequate visualization Protocol Sotalol HCl 40 mg 06/21/25 09:00 06/21/25 08:15 Sotalol Hcl 40 Mg Tablet PO 40 mg DAILY DAVID Administration Radiology Results: ITS Impressions Pulmonary Perfusion Imaging 06/21/25 11:25 IMPRESSION: No compelling or large segmental size areas of mismatch, and with right base findings on today's chest x-ray, the perfusion mismatch in the right base is of uncertain significance. Per PIOPED criteria, this is an indeterminate INTERMEDIATE probability for pulmonary embolus. Renal Ultrasound 06/21/25 13:56 IMPRESSION: 1. Normal kidneys without hydronephrosis. Chest CT 06/21/25 14:30 IMPRESSION: 1. Bibasilar consolidations likely associated with aspiration versus community- acquired pneumonia. Mucoid appearing changes in the bronchi endotracheal air column support aspiration. Findings should be followed radiographically until clear. 2. Other chronic appearing findings. Chest X-Ray 06/22/25 07:45 IMPRESSION: 1. Stable to mildly improved appearance of interstitial/vascular markings. Labs Labs: Laboratory Results - last 24 hr 06/21/25 06/21/25 06/21/25 08:15 09:53 11:42 WBC RBC Hgb Hct MCV MCH MCHC RDW Plt Count MPV Immature Gran % (Auto) Neut % (Auto) Lymph % (Auto) [place] % (Auto) Eos % (Auto) Baso % (Auto) Lymph # (Auto) [place] # (Auto) Eos # (Auto) Baso # (Auto) Abs Immat Gran (auto) Absolute Neuts (auto) Absolute Nucleated RBC Nucleated RBC % APTT > 200.0 H* Puncture Site Left radial ABG pH 7.401 ABG pCO2 35.1 ABG pO2 59.1 L ABG PO2/FiO2 Ratio 1.14 ABG HCO3 21.3 L ABG O2 Saturation 90.9 L ABG O2 Content 16.6 ABG Base Excess -2.8 A-a Gradient 272.4 Oxyhemoglobin 89.2 L Total Hemoglobin 13.2 O2 Delivery Device High flow nasal boris O2 Liters/Min 8.0 FiO2 52 Sodium Potassium Chloride Carbon Dioxide Anion Gap BUN Creatinine Estim Creat Clear Calc Estimated GFR Glucose POC Capillary Glucose 164 H Calcium Magnesium Total Bilirubin AST ALT Alkaline Phosphatase C-Reactive Protein NT-Pro-B Natriuret Pep 6060 H Total Protein Albumin Procalcitonin Free T4 1.37 Urine Eosinophils U Random Total Protein Ur Random Sodium Ur Random Urea Urine Creatinine Protein/Creat Ratio 2 06/21/25 06/21/25 06/21/25 13:54 16:17 18:23 WBC RBC Hgb Hct MCV MCH MCHC RDW Plt Count MPV Immature Gran % (Auto) Neut % (Auto) Lymph % (Auto) [place] % (Auto) Eos % (Auto) Baso % (Auto) Lymph # (Auto) [place] # (Auto) Eos # (Auto) Baso # (Auto) Abs Immat Gran (auto) Absolute Neuts (auto) Absolute Nucleated RBC Nucleated RBC % APTT 89.1 H Puncture Site ABG pH ABG pCO2 ABG pO2 ABG PO2/FiO2 Ratio ABG HCO3 ABG O2 Saturation ABG O2 Content ABG Base Excess A-a Gradient Oxyhemoglobin Total Hemoglobin O2 Delivery Device O2 Liters/Min FiO2 Sodium Potassium Chloride Carbon Dioxide Anion Gap BUN Creatinine Estim Creat Clear Calc Estimated GFR Glucose POC Capillary Glucose 165 H Calcium Magnesium Total Bilirubin AST ALT Alkaline Phosphatase C-Reactive Protein NT-Pro-B Natriuret Pep Total Protein Albumin Procalcitonin Free T4 Urine Eosinophils None seen U Random Total Protein 190 Ur Random Sodium 67 Ur Random Urea 319 Urine Creatinine 42.3 Protein/Creat Ratio 2 4.49 H 06/21/25 06/22/25 06/22/25 20:22 01:17 01:18 WBC 9.4 RBC 3.51 L Hgb 11.5 L Hct 35.2 L MCV 100.3 H MCH 32.8 MCHC 32.7 RDW 14.3 Plt Count 168 MPV 10.8 H Immature Gran % (Auto) 0.3 Neut % (Auto) 60.7 Lymph % (Auto) 32.0 [place] % (Auto) 5.7 Eos % (Auto) 1.0 Baso % (Auto) 0.3 Lymph # (Auto) 3.02 [place] # (Auto) 0.5 Eos # (Auto) 0.1 Baso # (Auto) 0.0 Abs Immat Gran (auto) 0.03 Absolute Neuts (auto) 5.7 Absolute Nucleated RBC 0.000 Nucleated RBC % 0.0 APTT 87.9 H Puncture Site ABG pH ABG pCO2 ABG pO2 ABG PO2/FiO2 Ratio ABG HCO3 ABG O2 Saturation ABG O2 Content ABG Base Excess A-a Gradient Oxyhemoglobin Total Hemoglobin O2 Delivery Device O2 Liters/Min FiO2 Sodium 134 L Potassium 4.2 Chloride 105 Carbon Dioxide 22 Anion Gap 7 BUN 64 H Creatinine 2.23 H Estim Creat Clear Calc 21 Estimated GFR 21 L Glucose 131 H POC Capillary Glucose 245 H Calcium 8.3 L Magnesium 2.3 Total Bilirubin 0.5 AST 30 ALT 21 Alkaline Phosphatase 87 C-Reactive Protein 2.8 H NT-Pro-B Natriuret Pep Total Protein 6.1 L Albumin 3.2 L Procalcitonin 0.1 Free T4 Urine Eosinophils U Random Total Protein Ur Random Sodium Ur Random Urea Urine Creatinine Protein/Creat Ratio 2 06/22/25 07:43 WBC RBC Hgb Hct MCV MCH MCHC RDW Plt Count MPV Immature Gran % (Auto) Neut % (Auto) Lymph % (Auto) [place] % (Auto) Eos % (Auto) Baso % (Auto) Lymph # (Auto) [place] # (Auto) Eos # (Auto) Baso # (Auto) Abs Immat Gran (auto) Absolute Neuts (auto) Absolute Nucleated RBC Nucleated RBC % APTT Puncture Site ABG pH ABG pCO2 ABG pO2 ABG PO2/FiO2 Ratio ABG HCO3 ABG O2 Saturation ABG O2 Content ABG Base Excess A-a Gradient Oxyhemoglobin Total Hemoglobin O2 Delivery Device O2 Liters/Min FiO2 Sodium Potassium Chloride Carbon Dioxide Anion Gap BUN Creatinine Estim Creat Clear Calc Estimated GFR Glucose POC Capillary Glucose 179 H Calcium Magnesium Total Bilirubin AST ALT Alkaline Phosphatase C-Reactive Protein NT-Pro-B Natriuret Pep Total Protein Albumin Procalcitonin Free T4 Urine Eosinophils U Random Total Protein Ur Random Sodium Ur Random Urea Urine Creatinine Protein/Creat Ratio 2
--- NOTE | 2025-06-22 08:54 | P.PNPL_ITS ---
Progress Note: A&P Assessment and Plan (1) COPD (chronic obstructive pulmonary disease): Code(s): J44.9 - Chronic obstructive pulmonary disease, unspecified Status: Acute Assessment and Plan: Regarding her COPD the patient tells me she did PFTs at [facility] 4-5 years ago and they told her she had a little bit of COPD. Patient had a CT scan of the chest in our system on 05/10/2020 with very mild apical predominant centrilobular emphysema. Her last CT scan low-dose on 09/13/2024 showed mild apical predominant centrilobular emphysema with no concerning masses or nodules. I have no PFTs. She has been maintained on inhalers. She wears no oxygen at home and a few months ago when she checked her pulse oximetry is 94-95%. Few months ago when she was feeling well she had 2 block limitation in her activity due to leg pain and back pain not dyspnea on exertion. At baseline she has no chronic cough, she produces phlegm 1 to 2 times a day and has no hemoptysis. Patient smoked tobacco from [id number] at half a pack a day for a total of 30 pack years. Patient was exposed to secondhand smoke from her father and after she moved out of her father's house she has lived with smokers all her life. Patient smokes marijuana 2-3 inhalations a day for the last 10 years and quit in May of 2025. Patient denies vaping, illicit drug use. 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 Current illness started on 06/17 where she had minimal shortness of breath with no cough, fever. She did have slightly more phlegm than usual with no hemoptysis. On 06/18 she noticed that her heart was racing and then her shortness of breath got much worse and she presented to the emergency department on 06/19/2025. She complained of worsening shortness of breath. EMS had given her DuoNebs x2 and Solu-Medrol. In the emergency department her heart rate was irregularly irregular at a heart rate of 157. Blood pressure was 162/73, respirations were 26 and a room air saturations were 94%. She was afebrile. Her lungs were clear to auscultation. Her white blood cell count was 9.6 with 0.6% eosinophils, her creatinine was 2.26, serum bicarb was 20, her chest x-ray showed congestion. Patient was treated for dehydration with 1 L IV fluid, IV diltiazem, IV heparin, ceftriaxone and doxycycline. It was felt she was not having a COPD exacerbation and steroids were discontinued. It was felt that she did not have a infection and her antibiotics were discontinued. 06/20/2025: Patient had an echocardiogram with an LVEF 65-70%. Severely enlarged left atrium, mild mitral regurg, mild tricuspid regurg with a PASP of 63. Normal RV size and function. Normal right atrial size. Mild mitral stenosis. 06/21/2025: Patient tells me she is breathing normal today. She denies phlegm or hemoptysis. Her cough is at her baseline. When I enter the room she was on Vapotherm with 45 L and 55% FiO2 with saturations 95%. I changed her to 15 L nasal cannula and sequentially decreased her to 8 L nasal cannula with saturations 91%. She felt better on the nasal cannula. She is afebrile. White blood cell count is 12.3, creatinine is 2.13, BNP is 6060. Free T4 is 1.37. Chest x-ray shows congestion. ABG on 8 L nasal cannula 7.40/35/59. Plan: I do not believe patient has having a COPD exacerbation, bronchitis or pneumonia. She does have hypoxemic respiratory failure without hypercarbic respiratory failure. I will continue her trelegy 100 which contains an muscarinic antagonist and I will therefore discontinue her nebulized ipratropium. Goal saturation 90-94%. Patient has hypoxic respiratory failure somewhat out of proportion to her imaging and I will obtain echo with bubble study today. Later in the day patient had a V/Q scan with no large subsegmental areas of mismatch perfusion mismatch in the right base correlates with x-ray findings overall intermediate study and no evidence of chronic thromboembolic disease. Later in the day patient had a CT chest with bibasilar dependent consolidations with some endobronchial mucus changes consistent with atelectasis or pneumonia, mild apical predominant centrilobular emphysema trace pleural effusions. Later in the day patient had a bubble study which demonstrated a couple of bubbles in the left side after 4-5 seconds suggesting of either a tiny patent foramen ovale or transpulmonary bubbles. 06/22/25: patient tells me she is better today. She states she is 80% back to her normal. She has no rest shortness of breath and has not been out of bed. She has having nose bleeds. She has cough with phlegm. When I enter the room she was on 10 L nasal cannula with saturations 96%. I suppose sequentially decreased her to 5 L and her saturations were 91%. Patient had a fever yest erday at 37.9. White blood cell count 9.4, creatinine 2.23, procalcitonin 0.1. PTT 87.9, Plan: patient with a fever last night, minimal cough but with some congestion, CT scan with basilar dependent consolidations with mucus. I will treat the patient for pneumonia. Blood cultures, nasal swab for MRSA, respiratory pathogen panel, mycoplasma IgM, urine Legionella antigen, urine pneumococcal a ntigen have been ordered. After blood cultures will initiate ceftriaxone 1 g Q 24 and Levaquin 750 mg Q 48 hours. I do not feel there is a COPD exacerbation with continue her trelegy 100. Goal saturation 90-94%, wean oxygen accordingly. I will add guaifenesin 1200 mg p.o. b.i.d. as she has phlegm that is difficult to expectorate. Given the likely dependent atelectasis I will start EzPAP. Discussed with Dr. Ruiz, will follow with you. (2) Pulmonary hypertension: Code(s): I27.20 - Pulmonary hypertension, unspecified Status: Acute Assessment and Plan: Patient was admitted to [facility] with fluid overload and conge stive heart failure from 12/26/2024 through 12/30/2024. During that hospitalization she had an echocardiogram on 12/28 that showed grade 3 diastolic dysfunction, moderate mitral regurg, moderate tricuspid regurg with a PASP of 70. LV EF was not stated in the discharge summary. Hydralazine was added to her regimen. ABG during that admission was 7.32/42/59 and the patient was started on BiPAP and moved to the ICU and eventually transitioned to CPAP. She was discharged home on oxygen and she wore this for 2-3 weeks. She was supposed to follow-up with pulmonary but has not done this. No mention of a COPD exacerbation in the discharge summary. 06/20/2025: Patient had an echocardiogram with an LVEF 65-70%. Severely enlarged left atrium, mild mitral regurg, mild tricuspid regurg with a PASP of 63. Normal RV size and function. Normal right atrial size. Mild mitral stenosis. Etiology of pulmonary hypertension includes: Idiopathic pulmonary arterial hypertension, pulmonary hypertension with heart failure with preserved LVEF, severe diastolic dysfunction, mitral stenosis, COPD, hypoxic respiratory failure, doubt chronic thromboembolic pulmonary hypertension. Plan: I will obtain V/Q scan of the chest today to assess for chronic thromboembolic pulmonary hypertension. BNP is elevated and chest x-ray with congestion likely related to AFib with RVR. Patient received Lasix 40 IV today. Cardiology is following to optimize her cardiac function and volume status. there is no evidence of COPD exacerbation will continue her maintenance inhalers. She has discontinued tobacco use. Patient was started on sotalol and dose will be decreased due to bradycardia. Later in the day patient had a V/Q scan with no large subsegmental areas of mismatch perfusion mismatch in the right base correlates with x-ray findings overall intermediate study and no evidence of chronic thromboembolic disease. Later in the day patient had a CT chest with bibasilar dependent consolidations with some endobronchial mucus changes consistent with atelectasis or pneumonia, mild apical predominant centrilobular emphysema trace pleural effusions. Later in the day patient had a bubble study which demonstrated a couple of bubbles in the left side after 4-5 seconds suggesting of either a tiny patent foramen ovale or transpulmonary bubbles. 06/21/25: Overall patient has improved with diuretics, management of blood pressure, management of atrial fibrillation with rapid ventricular response. She improved prior to initiation of treatment for possible pneumonia which was started today. Yesterday she was -70 mL, cumulative she is positive 1.2 L since admission. Her weight today is 93.7. Chest x-ray today with minimally improved congestion. Plan: cardiac medications are being managed by migratory game bird biologist and hospitalist team. Currently she is on amlodipine 10, hydrochlorothiazide 12.5, losartan 100 q.day, Imdur 60 q.day, hydralazine 75 p.o. q.i.d. and sotalol 40 q.day. she is on IV heparin and aspirin 81. continued new treatment for hypoxemic respiratory failure, COPD and pneumonia as above. Minimal [id number]-bt-[id number] shunt after 4-5 seconds suggesting intrapulmonary shunt may be contributing to hypoxemic respiratory failure. Last night the patient wore the hospital CPAP 12 with 50% FiO2 and decrease to 40% FiO2 throughout the night. She said the machine was not as comfortable as her home machine but she did get minimal sleep. (3) Sleep apnea: Qualifiers: Sleep apnea type: unspecified type Qualified Code(s): G47.30 - Sleep apnea, unspecified Code(s): G47.30 - Sleep apnea, unspecified Status: Acute Assessment and Plan: Regarding her obstructive sleep apnea she was diagnosed approximately 10 years ago with a sleep study. She does not remember where this sleep study was performed. She is on CPAP and does not know her settings. She does not wear oxygen with her CPAP. She does not know her DME company. She uses a fullface mask. She says she wears her mask regularly. 06/21/25: Last night the patient was placed on CPAP 10 and pressures were increased to CPAP 16. She says that she wore the mask last night and that these settings felt similar to her home settings. Plan: Patient believes her DME company may be [employer] and we will check with them for a download. I have told her to have her family bring in her CPAP machine so that we can verify her settings. If no verification will continue CPAP 16 as she said that this felt similar to her home settings. 06/22/25: Last night the patient wore the hospital CPAP 12 with 50% FiO2 and decrease to 40% FiO2 throughout the night. She said the machine was not as comfortable as her home machine but she did get minimal sleep. Plan: Patient tells me her family will bring in her home CPAP machine. We will then attempt to identify the company in get a download. If her home machine is brought in she will wear her home machine with 4 L bleed in. Subjective Date/time seen: 06/22/25 08:54 Interval history: 06/21/2025: This is a new pulmonary consult for COPD and pulmonary hypertension. 75-year-old with a history of coronary artery disease status post stents in 2011, diabetes, hypertension, hyperlipidemia, CKD stage 3 to 4, DENNIS on CPAP for 10 years. Patient was admitted to [facility] with fluid overload and congestive heart failure from 12/26/2024 through 12/30/2024. During that hospitalization she had an echocardiogram on 12/28 that showed grade 3 diastolic dysfunction, moderate mitral regurg, moderate tricuspid regurg with a PASP of 70. LV EF was not stated in the discharge summary. Hydralazine was added to her regimen. ABG during that admission was 7.32/42/59 and the patient was started on BiPAP and moved to the ICU and eventually transitioned to CPAP. She was discharged home on oxygen and she wore this for 2-3 weeks. She was supposed to follow-up with pulmonary but has not done this. No mention of a COPD exacerbation in the discharge summary. Regarding her obstructive sleep apnea she was diagnosed approximately 10 years ago with a sleep study. She does not remember where this sleep study was performed. She is on CPAP and does not know her settings. She does not wear oxygen with her CPAP. She does not know her DME company. She uses a fullface mask. She says she wears her mask regularly. Regarding her COPD the patient tells me she did PFTs at [facility] 4-5 years ago and they told her she had a little bit of COPD. Patient had a CT scan of the chest in our system on 05/10/2020 with very mild apical predominant centrilobular emphysema. Her last CT scan low-dose on 09/13/2024 showed mild apical predominant centrilobular emphysema with no concerning masses or nodules. I have no PFTs. She has been maintained on inhalers. She wears no oxygen at home and a few months ago when she checked her pulse oximetry is 94-95%. Few months ago when she was feeling well she had 2 block limitation in her activity due to leg pain and back pain not dyspnea on exertion. At baseline she has no chronic cough, she produces phlegm 1 to 2 times a day and has no hemoptysis. Patient smoked tobacco from [id number] at half a pack a day for a total of 30 pack years. Patient was exposed to secondhand smoke from her father and after she moved out of her father's house she has lived with smokers all her life. Patient smokes marijuana 2-3 inhalations a day for the last 10 years and quit in May of 2025. Patient denies vaping, illicit drug use. 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 04/14/2025: Patient saw her labor relations supervisor she weighed 196 lb. Her creatinine on 04/11/2025 was 1.58. 04/28/2025: Patient followed with her migratory game bird biologist, Dr. Colón, she had 2 block dyspnea on exertion, her room air saturations were 92%. Her weight was 195 lb. Respiratory medicines include trelegy 100, albuterol p.r.n. and Flonase. Current illness started on 06/17 where she had minimal shortness of breath with no cough, fever. She did have slightly more phlegm than usual with no hemoptysis. On 06/18 she noticed that her heart was racing and then her shortness of breath got much worse and she presented to the emergency department on 06/19/2025. She complained of worsening shortness of breath. EMS had given her DuoNebs x2 and Solu-Medrol. In the emergency department her heart rate was irregularly irregular at a heart rate of 157. Blood pressure was 162/73, respirations were 26 and a room air saturations were 94%. She was afebrile. He r lungs were clear to auscultation. Her white blood cell count was 9.6 with 0.6% eosinophils, her creatinine was 2.26, serum bicarb was 20, her chest x-ray showed congestion. Patient was treated for dehydration with 1 L IV fluid, IV diltiazem, IV heparin, ceftriaxone and doxycycline. It was felt she was not having a COPD exacerbation and steroids were discontinued. It was felt that she did not have a infection and her antibiotics were discontinued. 06/20/2025: Patient had an echocardiogram with an LVEF 65-70%. Significant diastolic dysfunction with E/e' 48. Severely enlarged left atrium, mild mitral regurg, mild tricuspid regurg with a PASP of 63. Normal RV size and function. Normal right atrial size. Mild mitral stenosis. 06/21/2025: Patient tells me she is breathing normal today. She denies phlegm or hemoptysis. Her cough is at her baseline. When I enter the room she was on Vapotherm with 45 L and 55% FiO2 with saturations 95%. I changed her to 15 L nasal cannula and sequentially decreased her to 8 L nasal cannula with saturations 91%. She felt better on the nasal cannula. She is afebrile. White blood cell count is 12.3, creatinine is 2.13, BNP is 6060. Free T4 is 1.37. Chest x-ray shows congestion. ABG on 8 L nasal cannula 7.40/35/59. Last night the patient was placed on CPAP 10 and pressures were increased to CPAP 16. She says that she wore the mask last night and that these settings felt similar to her home settings. Later in the day patient had a V/Q scan with no large subsegmental areas of mismatch perfusion mismatch in the right base correlates with x-ray findings overall intermediate study and no evidence of chronic thromboembolic disease. Later in the day patient had a CT chest with bibasilar dependent consolidations with some endobronchial mucus changes consistent with atelectasis or pneumonia, mild apical predominant centrilobular emphysema trace pleural effusions. Later in the day patient had a bubble study which demonstrated a couple of bubbles in the left side after 4-5 seconds suggesting of either a tiny patent foramen ovale or transpulmonary bubbles. 06/22/25: patient tells me she is better today. She states she is 80% back to her normal. She has no rest shortness of breath and has not been out of bed. She has having nose bleeds. She has cough with phlegm. When I enter the room she was on 10 L nasal cannula with saturations 96%. I suppose sequentially decreased her to 5 L and her saturations were 91%. Patient had a fever yesterday at 37.9. White blood cell count 9.4, creatinine 2.23, procalcitonin 0.1.PTT 87.9, yesterday she was -70 mL, cumulative she is positive 1.2 L since admission. Her weight today is 93.7. Chest x-ray today with minimally improved congestion. Last night the patient wore the hospital CPAP 12 with 50% FiO2 and decrease to 40% FiO2 throughout the night. She said the machine was not as comfortable as her home machine but she did get minimal sleep. DATA: 06/21/25: EXAMINATION:CT diagnostic chest wo con INDICATION: Hypoxia COMPARISON: July 13, 2025 FINDINGS: Bibasilar consolidations with atelectatic changes have developed right worse than left. Trace bilateral pleural effusions. And the mainstem bronchi, streaky mucoid appearing changes are present. Tracheal air column as trace dependent secretions but no obvious mass. Heart and great vessels appear stable. Extensive coronary artery calcification. 10 mm nodule anterior right midlung image 57 series 4 is stable. Borderline pathologic sized mediastinal lymph nodes not clearly changed. Diffuse degenerative changes in the bones. IMPRESSION: 1. Bibasilar consolidations likely associated with aspiration versus community- acquired pneumonia. Mucoid appearing changes in the bronchi endotracheal air column support aspiration. Findings should be followed radiographically until clear. 2. Other chronic appearing findings. 06/21/25: Bubble study Summary 1. BUBBLE STUDY APPEARS POSITIVE IN BOTH CLIPS TOWARDS END. 2. Limited echocardiogram. 3. Left ventricular chamber dimension is normal. 4. Left ventricular systolic function is normal, estimated at 65-70. 5. The left ventricular diastolic function is indeterminate as it was not assessed. 6. Interatrial septum not well visualized by 2D and agitated saline imaging. 7. Agitated saline injection with and without valsalva maneuver opacified right side cardiac chambers with a couple of bubbles shunt to left side cardiac chambers after 4-5 seconds. This suggests either tiny patent foramen ovale or they are transpulmonary bubbles that made it through. 06/21/25: EXAM/PROCEDURE: NM lung vent and perfusion HISTORY: SOB, CP, afib rvr COMPARISON: Portable chest x-ray same day. RADIOISOTOPE: 22.9 mCi xenon used for the ventilatory portion of today's exam. Perfusion scan was performed using 5.5 mCi technetium 99m microaggregated albumin. FINDINGS: Prominent area of photopenia corresponding to the heart shadow consistent with cardiomegaly. Obscuration of the right lung base on recent radiograph, corresponds to possible segmental size area of mismatch in the right lung base, although findings are complicated due to radiographic findings. IMPRESSION: No compelling or large segmental size areas of mismatch, and with right base findings on today's chest x-ray, the perfusion mismatch in the right base is of uncertain significance. Per PIOPED criteria, this is an indeterminate INTERMEDIATE probability for pulmonary embolus. 06/20/25: Echo Summary 1. Definity contrast administered improved wall motion interpretation. 2. Left ventricular chamber dimension is normal. 3. Left ventricular systolic function is normal, estimated at 65-70. 4. There is moderate concentric increased left ventricular wall thickness. 5. E/e' 48 is significantly elevated. 6. Left atrial chamber dimension is severely enlarged. 7. The mitral valve has moderately calcified leaflets and a moderately calcified annulus. 8. There is mild mitral valve regurgitation. 9. There is mild tricuspid valve regurgitation. 10. Severe pulmonary hypertension, estimated pulmonary arterial systolic pressure is 63 mmHg. 11. Dilated inferior vena cava with >50% collapse upon inspiration consistent with elevated right atrial pressure, 10 mmHg. Right Ventricle Right ventricular chamber dimension is normal. Right ventricular systolic function is normal and with normal TAPSE 2.3 cm. Left Atria Left atrial chamber dimension is severely enlarged. Right Atria Right atrial chamber dimension is normal. Mitral Valve The mitral valve has moderately calcified leaflets and a moderately calcified annulus. There is mild mitral valve stenosis with valve area of 1.9 cm2. There is mild mitral valve regurgitation. 09/13/24: EXAMINATION:CT lung screening INDICATION: Personal history of nicotine dependence. Current smoker with 56 pack year history. COMPARISON: Chest CT 09/10/2023 FINDINGS: There is mild emphysema. There is a 3 mm nodule in right upper lobe. There is a 7 mm nodule at minor fissure without change. Calcified pulmonary nodules and calcified hilar and mediastinal lymph nodes are consistent with old granulomatous disease. There is mild atelectasis bilaterally. No pleural effusion. Cardiomegaly is noted. There are coronary artery calcifications. No pericardial effusion. There are changes of cholecystectomy. There is severe thoracic spondylosis. IMPRESSION: 1. Lung-RADS category 2: Benign appearance or behavior. Continue annual screening with noncontrast low-dose chest CT in 12 months. Review of Systems Constitutional: Constitutional: Reports no additional constitutional complaints Eyes: Eyes: Reports no additional eye complaints ENT: Reports system reviewed and no additional complaints, except as documented Cardiovascular: Cardiovascular: Reports no additional cardiovascular complaints Respiratory: Respiratory: Reports no additional respiratory complaints Gastrointestinal: Gastrointestinal: Reports no additional gastrointestinal complaints Musculoskeletal: Musculoskeletal: Reports no additional musculoskeletal complaints Neurologic: Reports system reviewed and no additional complaints, except as documented Psychiatric: Psychiatric: Reports no additional psychiatric complaints Endocrine: Endocrine: Reports no additional endocrine complaints Hematologic/Lymphatic: Hematologic/Lymphatic: Reports no additional hematologic/lymphatic complaints Allergic/Immunologic: Allergic/Immunologic: Reports no additional allergic/immunologic complaints Exam Const: General: cooperative, healthy appearing and comfortable Orientation/consciousness: oriented to person, oriented to place and oriented to time HENMT: Head: normal to inspection Ears: hearing grossly normal bilaterally Eyes: General: appearance normal, both eyes and all related structures Neck: Neck: normal visual inspection Chest: Chest palpation & inspection: normal inspection of the chest Resp: Effort & Inspection: normal respiratory effort and able to speak in complete sentences Auscultation: crackles, no rales, no rhonchi, no wheezes and lung sounds not diminished Other: Crackles at the bases right greater than left Cardio: Jugular venous distension: no JVD GI: Inspection: normal to inspection Skin: General skin exam: normal color Neuro: General: oriented to person, oriented to place and oriented to time Extrem: General: normal to inspection and no edema Psych: Appearance: grossly normal Objective Data Vital Signs Vital Signs: Vital Signs - 24 hr 06/21/25 09:45 06/21/25 10:00 06/21/25 12:00 Temperature Pulse Rate 52 L 48 L Respiratory Rate 20 Blood Pressure Pulse Oximetry 91 90 Oxygen Delivery High Flow Nasal Cannula High Flow Nasal Cannula Oxygen Flow Rate 8 12 06/21/25 12:00 06/21/25 12:00 06/21/25 12:32 Temperature 36.6 C Pulse Rate 49 L 54 L Respiratory Rate 20 Blood Pressure 175/42 H 160/46 H Pulse Oximetry 91 Oxygen Delivery Oxygen Flow Rate 06/21/25 14:00 06/21/25 16:00 06/21/25 16:00 Temperature 36.7 C Pulse Rate 56 L 51 L 66 Respiratory Rate 19 Blood Pressure 172/46 H Pulse Oximetry 91 Oxygen Delivery Oxygen Flow Rate 06/21/25 16:00 06/21/25 17:14 06/21/25 18:00 Temperature Pulse Rate 58 L 68 Respiratory Rate 20 Blood Pressure Pulse Oximetry 94 93 Oxygen Delivery High Flow Nasal Cannula High Flow Nasal Cannula Oxygen Flow Rate 12 15 06/21/25 19:25 06/21/25 19:47 06/21/25 20:00 Temperature 37.9 C H Pulse Rate 74 74 57 L Respiratory Rate 20 22 H Blood Pressure 172/45 H Pulse Oximetry 93 93 92 Oxygen Delivery High Flow Nasal Cannula High Flow Nasal Cannula Oxygen Flow Rate 13 06/21/25 20:00 06/21/25 20:00 06/21/25 20:05 Temperature Pulse Rate 57 L 55 L Respiratory Rate 20 Blood Pressure Pulse Oximetry 91 Oxygen Delivery High Flow Nasal Cannula Oxygen Flow Rate 11 06/21/25 20:27 06/21/25 20:45 06/21/25 21:45 Temperature 37.9 C H 37.5 C Pulse Rate 55 L Respiratory Rate 20 Blood Pressure Pulse Oximetry 94 Oxygen Delivery High Flow Nasal Cannula Oxygen Flow Rate 11 06/21/25 22:00 06/21/25 22:00 06/21/25 22:30 Temperature Pulse Rate 78 53 L Respiratory Rate 20 Blood Pressure Pulse Oximetry 89 L Oxygen Delivery BiPAP High Flow Nasal Cannula Oxygen Flow Rate 8 06/21/25 22:50 06/22/25 00:00 06/22/25 00:00 Temperature 37.0 C Pulse Rate 56 L 45 L 48 L Respiratory Rate 22 H 21 H Blood Pressure 160/42 H Pulse Oximetry 92 94 Oxygen Delivery CPAP Oxygen Flow Rate 06/22/25 00:00 06/22/25 02:00 06/22/25 02:18 Temperature Pulse Rate 48 L 44 L Respiratory Rate 21 H Blood Pressure Pulse Oximetry 95 90 Oxygen Delivery High Flow Nasal Cannula CPAP Oxygen Flow Rate 12 06/22/25 04:00 06/22/25 04:00 06/22/25 04:00 Temperature 36.8 C Pulse Rate 41 L 52 L Respiratory Rate 20 Blood Pressure 182/42 H Pulse Oximetry 94 94 Oxygen Delivery High Flow Nasal Cannula Oxygen Flow Rate 12 06/22/25 06:19 06/22/25 07:44 06/22/25 07:56 Temperature 36.8 C Pulse Rate 59 L 49 L Respiratory Rate 18 Blood Pressure 156/58 H Pulse Oximetry 92 92 Oxygen Delivery High Flow Nasal Cannula Oxygen Flow Rate 11 Intake/Output Intake/Output: Intake & Output 06/19/25 06/20/25 06/21/25 06/22/25 23:59 23:59 23:59 23:59 Intake Total 1200 721.6 1330.3 152.7 Output Total 350 1400 0 Balance 1200 371.6 -69.7 152.7 Meds/Results Medications: Active Medications Generic Name Dose Route Start Last Admin Trade Name Freq PRN Reason Stop Dose Admin Acetaminophen 1,000 mg 06/19/25 22:44 06/22/25 06:12 Acetaminophen 500 Mg Tablet PO 1,000 mg TID PRN Administration Mild Pain (1-3) or Fever Allopurinol 100 mg 06/23/25 09:00 Allopurinol 100 Mg Tablet PO Q48HR DAVID Amlodipine Besylate 10 mg 06/20/25 09:00 06/21/25 07:48 Amlodipine Besylate 10 Mg Tablet BY MOUTH 10 mg DAILY DAVID Administration Aspirin 81 mg 06/20/25 09:00 06/21/25 07:48 Aspirin 81 Mg Enteric Tablet PO 81 mg DAILY DAVID Administration Atorvastatin Calcium 80 mg 06/20/25 09:55 06/21/25 07:47 Atorvastatin 40 Mg Tablet PO 80 mg DAILY DAVID Administration Dextrose 12.5 gm 06/19/25 21:30 Dextrose 50% 25 Gm/50 Ml Syringe IV PUSH PRN PRN Hypoglycemia Protocol Fluticasone Propionate 1 spray 06/20/25 09:00 06/21/25 20:26 Fluticasone Propionate 0.05% Na Spr 16 Gm Btl (*Bkc) NASAL 1 spray Q12H DAVID Administration Fluticasone/Umeclidinium/Vilanterol 1 puff 06/20/25 09:00 06/22/25 07:44 Fluticasone/Umeclidin/Vilanter 100-62.5-25 Mcg Ellipta INHALATION 1 puff Q24H DAVID Administration Glucose 15 gm 06/19/25 21:30 Glucose Oral Gel 15 Gm Of Glucse In 37.5 Gm Tube PO PRN PRN Hypoglycemia Protocol Heparin Sodium (Porcine) 5,500 units 06/19/25 19:03 06/21/25 02:12 Heparin Sodium 5,000 Units/Ml Vial IV PUSH 5,500 units PRN PRN Administration aPTT less than 55 seconds Heparin Sodium (Porcine) 2,500 units 06/19/25 19:03 06/20/25 13:30 Heparin Sodium 5,000 Units/Ml Vial IV PUSH 2,500 units PRN PRN Administration aPTT 55 - 70 seconds Hydralazine HCl 75 mg 06/21/25 13:00 06/21/25 20:26 Hydralazine Hcl 25 Mg Tablet PO 75 mg QID DAVID Administration Hydrochlorothiazide 12.5 mg 06/20/25 09:50 06/21/25 07:48 Hydrochlorothiazide 12.5 Mg Capsule PO 12.5 mg DAILY DAVID Administration Heparin Sodium/Dextrose 25,000 units in 250 mls @ 16 mls/hr 06/19/25 19:05 06/22/25 01:55 Heparin Sodium/D5w 100 Units/Ml IV CONT 1,600 units/hr .[id number] DAVID 16 mls/hr Protocol Titration 1,600 UNITS/HR Dextrose 1,000 mls @ 100 mls/hr 06/19/25 21:30 Dextrose 5% 1,000 Ml IVPB PRN PRN Hypoglycemia Protocol Ceftriaxone Sodium 1 gm/ 50 mls @ 100 mls/hr 06/22/25 09:00 Sodium Chloride IVPB Q24H DAVID Levofloxacin/Dextrose 750 mg in 150 mls @ 100 mls/hr 06/22/25 09:00 Levaquin 750 Mg/D5w 150 Ml IVPB Q48HR DAVID Insulin Aspart 2 - 5 units 06/20/25 08:00 06/21/25 17:37 Insulin Aspart (*Bkc) 100 Units/Ml SUB-Q Not Given [facility] Protocol Insulin Aspart 1 - 2 units 06/20/25 21:00 06/21/25 20:26 Insulin Aspart (*Bkc) 100 Units/Ml SUB-Q 1 units HS DAVID Administration Protocol Isosorbide Mononitrate 60 mg 06/20/25 09:50 06/21/25 07:48 Isosorbide Mononitrate 60 Mg Tab.Er.24h PO 60 mg DAILY DAVID Administration Levalbuterol HCl 0.63 mg 06/21/25 19:41 06/21/25 20:05 Levalbuterol Neb 1.25 Mg/3 Ml INHALATION 0.63 mg Q6HRT PRN Administration shortness of breath Levothyroxine Sodium 100 mcg 06/21/25 06:30 06/22/25 06:04 Levothyroxine Sodium 100 Mcg Tablet PO 100 mcg DAILY@0630 DAVID Administration Losartan Potassium 100 mg 06/20/25 09:00 06/21/25 07:47 Losartan Potassium 100 Mg Tablet PO 100 mg DAILY DAVID Administration Perflutren Lipid Microsphere 0 ml 06/21/25 10:46 Perflutren Lipid Microspheres 1.5 Ml Vial Diluted To 10 Ml Total Volume IV PUSH 06/24/25 10:46 ONCE PRN adequate visualization Protocol Sotalol HCl 40 mg 06/21/25 09:00 06/21/25 08:15 Sotalol Hcl 40 Mg Tablet PO 40 mg DAILY DAVID Administration Radiology Results: ITS Impressions Pulmonary Perfusion Imaging 06/21/25 11:25 IMPRESSION: No compelling or large segmental size areas of mismatch, and with right base findings on today's chest x-ray, the perfusion mismatch in the right base is of uncertain significance. Per PIOPED criteria, this is an indeterminate INTERMEDIATE probability for pulmonary embolus. Renal Ultrasound 06/21/25 13:56 IMPRESSION: 1. Normal kidneys without hydronephrosis. Chest CT 06/21/25 14:30 IMPRESSION: 1. Bibasilar consolidations likely associated with aspiration versus community- acquired pneumonia. Mucoid appearing changes in the bronchi endotracheal air column support aspiration. Findings should be followed radiographically until clear. 2. Other chronic appearing findings. Chest X-Ray 06/22/25 07:45 IMPRESSION: 1. Stable to mildly improved appearance of interstitial/vascular markings. Labs Labs: Laboratory Results - last 24 hr 06/21/25 06/21/25 06/21/25 08:15 09:53 11:42 WBC RBC Hgb Hct MCV MCH MCHC RDW Plt Count MPV Immature Gran % (Auto) Neut % (Auto) Lymph % (Auto) [place] % (Auto) Eos % (Auto) Baso % (Auto) Lymph # (Auto) [place] # (Auto) Eos # (Auto) Baso # (Auto) Abs Immat Gran (auto) Absolute Neuts (auto) Absolute Nucleated RBC Nucleated RBC % APTT > 200.0 H* Puncture Site Left radial ABG pH 7.401 ABG pCO2 35.1 ABG pO2 59.1 L ABG PO2/FiO2 Ratio 1.14 ABG HCO3 21.3 L ABG O2 Saturation 90.9 L ABG O2 Content 16.6 ABG Base Excess -2.8 A-a Gradient 272.4 Oxyhemoglobin 89.2 L Total Hemoglobin 13.2 O2 Delivery Device High flow nasal boris O2 Liters/Min 8.0 FiO2 52 Sodium Potassium Chloride Carbon Dioxide Anion Gap BUN Creatinine Estim Creat Clear Calc Estimated GFR Glucose POC Capillary Glucose 164 H Calcium Magnesium Total Bilirubin AST ALT Alkaline Phosphatase C-Reactive Protein Total Protein Albumin Procalcitonin Free T4 1.37 Urine Eosinophils U Random Total Protein Ur Random Sodium Ur Random Urea Urine Creatinine Protein/Creat Ratio 2 06/21/25 06/21/25 06/21/25 13:54 16:17 18:23 WBC RBC Hgb Hct MCV MCH MCHC RDW Plt Count MPV Immature Gran % (Auto) Neut % (Auto) Lymph % (Auto) [place] % (Auto) Eos % (Auto) Baso % (Auto) Lymph # (Auto) [place] # (Auto) Eos # (Auto) Baso # (Auto) Abs Immat Gran (auto) Absolute Neuts (auto) Absolute Nucleated RBC Nucleated RBC % APTT 89.1 H Puncture Site ABG pH ABG pCO2 ABG pO2 ABG PO2/FiO2 Ratio ABG HCO3 ABG O2 Saturation ABG O2 Content ABG Base Excess A-a Gradient Oxyhemoglobin Total Hemoglobin O2 Delivery Device O2 Liters/Min FiO2 Sodium Potassium Chloride Carbon Dioxide Anion Gap BUN Creatinine Estim Creat Clear Calc Estimated GFR Glucose POC Capillary Glucose 165 H Calcium Magnesium Total Bilirubin AST ALT Alkaline Phosphatase C-Reactive Protein Total Protein Albumin Procalcitonin Free T4 Urine Eosinophils None seen U Random Total Protein 190 Ur Random Sodium 67 Ur Random Urea 319 Urine Creatinine 42.3 Protein/Creat Ratio 2 4.49 H 06/21/25 06/22/25 06/22/25 20:22 01:17 01:18 WBC 9.4 RBC 3.51 L Hgb 11.5 L Hct 35.2 L MCV 100.3 H MCH 32.8 MCHC 32.7 RDW 14.3 Plt Count 168 MPV 10.8 H Immature Gran % (Auto) 0.3 Neut % (Auto) 60.7 Lymph % (Auto) 32.0 [place] % (Auto) 5.7 Eos % (Auto) 1.0 Baso % (Auto) 0.3 Lymph # (Auto) 3.02 [place] # (Auto) 0.5 Eos # (Auto) 0.1 Baso # (Auto) 0.0 Abs Immat Gran (auto) 0.03 Absolute Neuts (auto) 5.7 Absolute Nucleated RBC 0.000 Nucleated RBC % 0.0 APTT 87.9 H Puncture Site ABG pH ABG pCO2 ABG pO2 ABG PO2/FiO2 Ratio ABG HCO3 ABG O2 Saturation ABG O2 Content ABG Base Excess A-a Gradient Oxyhemoglobin Total Hemoglobin O2 Delivery Device O2 Liters/Min FiO2 Sodium 134 L Potassium 4.2 Chloride 105 Carbon Dioxide 22 Anion Gap 7 BUN 64 H Creatinine 2.23 H Estim Creat Clear Calc 21 Estimated GFR 21 L Glucose 131 H POC Capillary Glucose 245 H Calcium 8.3 L Magnesium 2.3 Total Bilirubin 0.5 AST 30 ALT 21 Alkaline Phosphatase 87 C-Reactive Protein 2.8 H Total Protein 6.1 L Albumin 3.2 L Procalcitonin 0.1 Free T4 Urine Eosinophils U Random Total Protein Ur Random Sodium Ur Random Urea Urine Creatinine Protein/Creat Ratio 2 06/22/25 07:43 WBC RBC Hgb Hct MCV MCH MCHC RDW Plt Count MPV Immature Gran % (Auto) Neut % (Auto) Lymph % (Auto) [place] % (Auto) Eos % (Auto) Baso % (Auto) Lymph # (Auto) [place] # (Auto) Eos # (Auto) Baso # (Auto) Abs Immat Gran (auto) Absolute Neuts (auto) Absolute Nucleated RBC Nucleated RBC % APTT Puncture Site ABG pH ABG pCO2 ABG pO2 ABG PO2/FiO2 Ratio ABG HCO3 ABG O2 Saturation ABG O2 Content ABG Base Excess A-a Gradient Oxyhemoglobin Total Hemoglobin O2 Delivery Device O2 Liters/Min FiO2 Sodium Potassium Chloride Carbon Dioxide Anion Gap BUN Creatinine Estim Creat Clear Calc Estimated GFR Glucose POC Capillary Glucose 179 H Calcium Magnesium Total Bilirubin AST ALT Alkaline Phosphatase C-Reactive Protein Total Protein Albumin Procalcitonin Free T4 Urine Eosinophils U Random Total Protein Ur Random Sodium Ur Random Urea Urine Creatinine Protein/Creat Ratio 2
[2025-06-22] MEDS: HEPARIN SOD/D5W 100 UNITS/ML 25,000 UNITS/250 ML BAG 16 UNITS IV CONT (09:12)
[2025-06-22] MEDS: ATORVASTATIN 40 MG TABLET 80 MG PO (09:15)
[2025-06-22] MEDS: cefTRIAXone 1 GM in SODIUM CHLORIDE 0.9% IV 50 ML 100 ML IVPB (09:16)
[2025-06-22] MEDS: LOSARTAN POTASSIUM 100 MG TABLET PO (09:16)
[2025-06-22] MEDS: levoFLOXacin 750 MG/D5W 150 ML 750 MG/150 ML BAG 100 MG IVPB (09:16)
[2025-06-22] MEDS: ISOSORBIDE MONONITRATE 60 MG TAB.ER.24H PO (09:16)
[2025-06-22] MEDS: ASPIRIN 81 MG ENTERIC TABLET PO (09:16)
[2025-06-22] MEDS: FLUTICASONE PROPIONATE 0.05% NA SPR 16 GM BTL (*BKC) 1 SPRAY NASAL ×2 (09:17→21:08)
--- NOTE | 2025-06-22 09:43 | P.CDI_ITS ---
CDI Query Clarification Request 1)Please specify type and acuity of heart failure if known. * Acute * Chronic * Acute on Chronic * Unknown * Systolic * Diastolic * Combined Systolic and Diastolic * Unknown 2) Please review the clinical information below and clarify the respiratory diagnosis the patient is being treated for: * Hypoxia or hypoxemia without respiratory failure * Respiratory distress without respiratory failure * Acute respiratory failure with hypoxia * Acute respiratory failure with hypercapnia * Acute respiratory failure with hypoxia and hypercapnia * Acute on chronic respiratory failure with hypoxia * Acute on chronic respiratory failure with hypercapnia * Acute on chronic respiratory failure with hypoxia and hypercapnia * Acute respiratory distress syndrome (ARDS) * Chronic respiratory failure with hypoxia * Chronic respiratory failure with hypercapnia * Chronic respiratory failure with hypoxia and hypercapnia * Other explanation clinical findings, please specify * Unable to determine Cardiology documented: (6) CHF (congestive heart failure): Qualifiers: Heart failure chronicity: unspecified Heart failure type: unspecified Qualified Code(s): I50.9 - Heart failure, unspecified Code(s): I50.9 - Heart failure, unspecified Status: Acute Assessment and Plan: Appears euvolemic. 06/20/25 Echo: EF 65-70%, mod LVH, significant diastolic dysfunction (E/e' 48), severe LAE, mod MAC/MV calcification, mild MR/TR, RVSP 63 mmHg. Hospitalist documented: Assessment and Plan (1) CHF (congestive heart failure): Qualifiers: Heart failure chronicity: unspecified Heart failure type: unspecified Qualified Code(s): I50.9 - Heart failure, unspecified Code(s): I50.9 - Heart failure, unspecified Status: Acute Assessment and Plan: Pulmonary vascular congestion on x-ray/auscultation of lungs. No lower extremity edema. Reports she was discharged from [facility] in December 2024 with heart failure but not sent home on diuretics. Patient did receive 1 L normal saline bolus in the ER, -admitted with AFib with RVR is controlled we will monitor. Continue heparin gtt. - Daily weights, strict intake/output. -Pt diagnosed with CHF December 2024 with no new meds. -06/21: V/Q scan showed intermediate probability for PE -06/21: overnight patient had increased oxygen requirements, currently on 8 L nasal cannula -06/21: Chest x-ray showed pulmonary vascular congestion, will give Lasix - patient may have HFpEF since she has diastolic dysfunction as seen on echocardiogram is under which could be related to her systemic hypertension and pulmonary hypertension ECHO 06/20: Summary 1. Definity contrast administered improved wall motion interpretation. 2. Left ventricular chamber dimension is normal. 3. Left ventricular systolic function is normal, estimated at 65-70. 4. There is moderate concentric increased left ventricular wall thickness. 5. E/e' 48 is significantly elevated. 6. Left atrial chamber dimension is severely enlarged. 7. The mitral valve has moderately calcified leaflets and a moderately calcified annulus. 8. There is mild mitral valve regurgitation. 9. There is mild tricuspid valve regurgitation. 10. Severe pulmonary hypertension, estimated pulmonary arterial systolic pressure is 63 mmHg. 11. Dilated inferior vena cava with >50% collapse upon inspiration consistent with elevated right atrial pressure, 10 mmHg. 06/21: Summary 1. BUBBLE STUDY APPEARS POSITIVE IN BOTH CLIPS TOWARDS END. 2. Limited echocardiogram. 3. Left ventricular chamber dimension is normal. 4. Left ventricular systolic function is normal, estimated at 65-70. 5. The left ventricular diastolic function is indeterminate as it was not assessed. 6. Interatrial septum not well visualized by 2D and agitated saline imaging. 7. Agitated saline injection with and without valsalva maneuver opacified right side cardiac chambers with a couple of bubbles shunt to left side cardiac chambers after 4-5 seconds. This suggests either tiny patent foramen ovale or they are transpulmonary bubbles that made it through. 06/21 BNP: 6060 Pt currently requires oxygen documented at 11 L high flow NC IV Lasix given once on 06/21 <Lakeshia Berry RN - Last Filed: 06/22/25 09:48> Clarified Diagnosis Clarified Diagnosis: Diastolic Acute respiratory failure with hypoxia <Yeyo Ruiz MD - Last Filed: 06/22/25 15:56>
--- NOTE | 2025-06-22 11:39 | ECG_ITS ---
Test Date: 2025-06-22 11:51:05 Measurements Intervals [place] Rate: 54 P: 67 TX: 164 QRS: -72 QRSD: 154 T: 8 QT: 521 QTc: 498 Interpretive Statements SINUS BRADYCARDIA WITH OCCASIONAL VENTRICULAR PREMATURE COMPLEXES RIGHT BUNDLE BRANCH BLOCK [120+ ms QRS DURATION, UPRIGHT V1, 40+ ms S IN I/aVL/V4/V5/V6] LEFT ANTERIOR FASCICULAR BLOCK [QRS AXIS <= -45, QR IN I, RS IN II] ABNORMAL ECG Compared to ECG 06/21/2025 10:26:17 Myocardial infarct finding no longer present Electronically Signed On 06-22-2025 17:12:03 OFFICE TECHNICIAN by Neymar Copeland M.D.
[2025-06-22 12:19] LABS: Influenza A QL RT-PCR Negative (Negative); Influenza B QL RT-PCR Negative (Negative); RSV RNA, RT-PCR Negative (Negative); SARS-CoV-2 RNA PCR Negative (Negative)
--- NOTE | 2025-06-22 12:20 | P.PNNP_ITS ---
Progress Note: A&P Assessment and Plan (1) Acute kidney injury: Code(s): N17.9 - Acute kidney failure, unspecified Status: Acute Assessment and Plan: * as noted on admission (creatinie 2.26mg/dL) * fluctuating since hospitalization began * possible new baseline or element of CKD progression? (see #2) * several issues playing a role: * CHF exacerbation * Afib with RVR * COPD * hypoxia(?) * diuresis * ARB + HCTZ use prior to admission * other(?) * evaluation to date noted: * renal ultrasound w/o obstruction * urine electrolytes nonprerenal * urine eosinophils negative * noted proteinuria * CPK normal * follow trend of repeat labs and UOP (2) Stage 3b chronic kidney disease: Code(s): N18.32 - Chronic kidney disease, stage 3b Status: Chronic Assessment and Plan: * baseline creatinine seems to run ~ 1.3 - 1.7mg/dl * however, has been as high as 2.0mg/dl * this causes her to fluctuate between CKD state 3b and stage 4 * secondary to hypertension, diabetes vascular disease (CAD + hyperlipidemia), COPD/DENNIS, and age-related change * follows with Jennifer Chairez NP/Dr. Young for CKD management (3) CHF (congestive heart failure): Qualifiers: Heart failure chronicity: unspecified Heart failure type: unspecified Qualified Code(s): I50.9 - Heart failure, unspecified Code(s): I50.9 - Heart failure, unspecified Status: Acute Assessment and Plan: * suggeste by pulmonary vascular congestion on x-ray and exam * no lower extremity edema * reportedly just discharged from [facility] in December 2024 with heart failure (but not sent home on diuretics), * Echo results noted: * left ventricular systolic function is normal, estimated at 65 - 70% * mitral valve has moderately calcified leaflets and a moderately calcified annulus * mild mitral valve regurgitation * mild tricuspid valve regurgitation * severe pulmonary hypertension, estimated pulmonary arterial systolic pressure is 63 mmHg. * follow I/Os, daily weights, and respiratory status (4) Atrial fibrillation with rapid ventricular response: Code(s): I48.91 - Unspecified atrial fibrillation Status: Acute Assessment and Plan: * admission EKG showed AFib with RVR rate 155 * acheived rate control with IV Cardiazem * on heparin gtt * on sotalol (5) COPD (chronic obstructive pulmonary disease): Code(s): J44.9 - Chronic obstructive pulmonary disease, unspecified Status: Acute Assessment and Plan: * Pulmonary following with recommendations noted * on inhalers * supplemental oxygen PRN (6) Pulmonary hypertension: Code(s): I27.20 - Pulmonary hypertension, unspecified Status: Acute Assessment and Plan: * as seen on echocardiogram with RVSP of 63 mmHg * Pulmonology and Cardiology following (7) Hypertension: Qualifiers: Hypertension type: essential hypertension Qualified Code(s): I10 - Essential (primary) hypertension Code(s): I10 - Essential (primary) hypertension Status: Acute Assessment and Plan: * quite erratic control * off ARB due to #1 * titrate hydralazine * change amlodipine to nifedipine * follow trend of hemodynamics (8) Type 2 diabetes mellitus with diabetic chronic kidney disease: Code(s): E11.22 - Type 2 diabetes mellitus with diabetic chronic kidney disease Status: Acute Assessment and Plan: * follow accu-cheks * glycemic control per hospitalist Will continue to follow. L Subjective Date/time seen: 06/22/25 12:20 Interval history: Follow-up for acute kidney injury/acute renal failure on chronic kidney disease. Transferred out of the ICU yesterday; breathing/respiratory status seems relatively stable with current interventions/therapy to date; no apparent distress noted at the time of my evaluation. Exam 2 Narrative: General: elderly but WD/WN female in NAD Heart: IRRR, normal S1 and S2; no rub Lungs: coarse breath sounds Abdomen: soft, nontender, nondistended, positive bowel sounds Extremities: no cyanosis or clubbing; trace edema Skin: warm and dry Objective Data Vital Signs Vital Signs: Vital Signs Temp Pulse Resp BP Pulse Ox O2 Del Method O2 Flow Rate 06/22/25 12:00 97.9 F 54 L 21 H 154/47 H 90 High Flow Nasal Cannula 5 06/22/25 10:00 51 L 06/22/25 08:00 52 L 06/22/25 08:00 92 High Flow Nasal Cannula 5 06/22/25 07:56 98.3 F 49 L 18 156/58 H 92 06/22/25 07:44 92 High Flow Nasal Cannula 06/22/25 06:19 59 L 06/22/25 04:00 98.2 F 52 L 20 182/42 H 94 06/22/25 04:00 41 L 06/22/25 04:00 94 High Flow Nasal Cannula 12 06/22/25 02:18 44 L 21 H 90 CPAP 06/22/25 02:00 48 L 06/22/25 00:00 95 High Flow Nasal Cannula 12 06/22/25 00:00 98.6 F 48 L 21 H 160/42 H 94 06/22/25 00:00 45 L 06/21/25 22:50 56 L 22 H 92 CPAP 06/21/25 22:30 53 L 06/21/25 22:00 78 20 89 L High Flow Nasal Cannula 8 06/21/25 22:00 BiPAP 06/21/25 21:45 99.5 F 06/21/25 20:45 100.2 F H 06/21/25 20:27 55 L 20 94 High Flow Nasal Cannula 11 06/21/25 20:05 55 L 20 06/21/25 20:00 57 L 06/21/25 20:00 91 High Flow Nasal Cannula 11 06/21/25 20:00 100.2 F H 57 L 22 H 172/45 H 92 06/21/25 19:47 74 93 High Flow Nasal Cannula 06/21/25 19:25 74 20 93 High Flow Nasal Cannula 13 06/21/25 18:00 68 06/21/25 17:14 58 L 20 93 High Flow Nasal Cannula 15 Intake/Output Intake/Output: Intake & Output 06/19/25 06/20/25 06/21/25 06/22/25 23:59 23:59 23:59 23:59 Intake Total 1200 721.6 1330.3 949.2 Output Total 350 1400 0 Balance 1200 371.6 -69.7 949.2 Meds/Results Medications: Active Medications Generic Name Dose Route Start Last Admin Trade Name Freq PRN Reason Stop Dose Admin Acetaminophen 1,000 mg 06/19/25 22:44 06/22/25 06:12 Acetaminophen 500 Mg Tablet PO 1,000 mg TID PRN Administration Mild Pain (1-3) or Fever Allopurinol 100 mg 06/23/25 09:00 Allopurinol 100 Mg Tablet PO Q48HR DAVID Amlodipine Besylate 10 mg 06/20/25 09:00 06/22/25 09:16 Amlodipine Besylate 10 Mg Tablet BY MOUTH 10 mg DAILY DAVID Administration Aspirin 81 mg 06/20/25 09:00 06/22/25 09:16 Aspirin 81 Mg Enteric Tablet PO 81 mg DAILY DAVID Administration Atorvastatin Calcium 80 mg 06/20/25 09:55 06/22/25 09:15 Atorvastatin 40 Mg Tablet PO 80 mg DAILY DAVID Administration Dextrose 12.5 gm 06/19/25 21:30 Dextrose 50% 25 Gm/50 Ml Syringe IV PUSH PRN PRN Hypoglycemia Protocol Fluticasone Propionate 1 spray 06/20/25 09:00 06/22/25 09:17 Fluticasone Propionate 0.05% Na Spr 16 Gm Btl (*Bkc) NASAL 1 spray Q12H DAVID Administration Fluticasone/Umeclidinium/Vilanterol 1 puff 06/20/25 09:00 06/22/25 07:44 Fluticasone/Umeclidin/Vilanter 100-62.5-25 Mcg Ellipta INHALATION 1 puff Q24H DAVID Administration Glucose 15 gm 06/19/25 21:30 Glucose Oral Gel 15 Gm Of Glucse In 37.5 Gm Tube PO PRN PRN Hypoglycemia Protocol Guaifenesin 1,200 mg 06/22/25 09:20 06/22/25 12:50 Guaifenesin 12 Hr 600 Mg Tabcr PO 1,200 mg Q12HR DAVID Administration Heparin Sodium (Porcine) 5,500 units 06/19/25 19:03 06/21/25 02:12 Heparin Sodium 5,000 Units/Ml Vial IV PUSH 5,500 units PRN PRN Administration aPTT less than 55 seconds Heparin Sodium (Porcine) 2,500 units 06/19/25 19:03 06/20/25 13:30 Heparin Sodium 5,000 Units/Ml Vial IV PUSH 2,500 units PRN PRN Administration aPTT 55 - 70 seconds Hydralazine HCl 100 mg 06/22/25 17:00 Hydralazine Hcl 50 Mg Tablet PO QID [facility] Hydrochlorothiazide 12.5 mg 06/20/25 09:50 06/22/25 09:16 Hydrochlorothiazide 12.5 Mg Capsule PO 12.5 mg DAILY DAVID Administration Heparin Sodium/Dextrose 25,000 units in 250 mls @ 16 mls/hr 06/19/25 19:05 06/22/25 09:12 Heparin Sodium/D5w 100 Units/Ml IV CONT 1,600 units/hr .[id number] DAVID 16 mls/hr Protocol Administration 1,600 UNITS/HR Dextrose 1,000 mls @ 100 mls/hr 06/19/25 21:30 Dextrose 5% 1,000 Ml IVPB PRN PRN Hypoglycemia Protocol Ceftriaxone Sodium 1 gm/ 50 mls @ 100 mls/hr 06/22/25 09:00 06/22/25 09:46 Sodium Chloride IVPB Infused Q24H DAVID Infusion Levofloxacin/Dextrose 750 mg in 150 mls @ 100 mls/hr 06/22/25 09:00 06/22/25 10:46 Levaquin 750 Mg/D5w 150 Ml IVPB Infused Q48HR DAVID Infusion Insulin Aspart 2 - 5 units 06/20/25 08:00 06/22/25 12:48 Insulin Aspart (*Bkc) 100 Units/Ml SUB-Q Not Given TIDWM DAVID Protocol Insulin Aspart 1 - 2 units 06/20/25 21:00 06/21/25 20:26 Insulin Aspart (*Bkc) 100 Units/Ml SUB-Q 1 units HS DAVID Administration Protocol Isosorbide Mononitrate 60 mg 06/20/25 09:50 06/22/25 09:16 Isosorbide Mononitrate 60 Mg Tab.Er.24h PO 60 mg DAILY DAVID Administration Levalbuterol HCl 0.63 mg 06/21/25 19:41 06/21/25 20:05 Levalbuterol Neb 1.25 Mg/3 Ml INHALATION 0.63 mg Q6HRT PRN Administration shortness of breath Levothyroxine Sodium 100 mcg 06/21/25 06:30 06/22/25 06:04 Levothyroxine Sodium 100 Mcg Tablet PO 100 mcg DAILY@0630 DAVID Administration Losartan Potassium 100 mg 06/20/25 09:00 06/22/25 09:16 Losartan Potassium 100 Mg Tablet PO 100 mg On Hold: 06/22/25 15:20 DAILY DAVID Administration Perflutren Lipid Microsphere 0 ml 06/21/25 10:46 Perflutren Lipid Microspheres 1.5 Ml Vial Diluted To 10 Ml Total Volume IV PUSH 06/24/25 10:46 ONCE PRN adequate visualization Protocol Sotalol HCl 40 mg 06/21/25 09:00 06/22/25 09:15 Sotalol Hcl 40 Mg Tablet PO 40 mg DAILY DAVID Administration Radiology Results: ITS Impressions Pulmonary Perfusion Imaging 06/21/25 11:25 IMPRESSION: No compelling or large segmental size areas of mismatch, and with right base findings on today's chest x-ray, the perfusion mismatch in the right base is of uncertain significance. Per PIOPED criteria, this is an indeterminate INTERMEDIATE probability for pulmonary embolus. Renal Ultrasound 06/21/25 13:56 IMPRESSION: 1. Normal kidneys without hydronephrosis. Chest CT 06/21/25 14:30 IMPRESSION: 1. Bibasilar consolidations likely associated with aspiration versus community- acquired pneumonia. Mucoid appearing changes in the bronchi endotracheal air column support aspiration. Findings should be followed radiographically until clear. 2. Other chronic appearing findings. Chest X-Ray 06/22/25 07:45 IMPRESSION: 1. Stable to mildly improved appearance of interstitial/vascular markings. Labs Labs: Laboratory Tests 06/22/25 01:18 06/22/25 01:18 Calcium 8.3 L Magnesium 2.3 Total Bilirubin 0.5 AST 30 ALT 21 Alkaline Phosphatase 87 C-Reactive Protein 2.8 H Total Protein 6.1 L Albumin 3.2 L
[2025-06-22] MEDS: guaiFENesin 12 HR 600 MG TABCR 1200 MG PO ×2 (12:50→21:08)
[2025-06-22 12:53] LABS: MRSA (PCR) NOT DETECTED (NOT DETECTE)
[2025-06-23] VITALS (19 sets, daily range): BP systolic 148–195; BP diastolic 40–56; PULSE 41–71; RESP 16–20; TEMP 36.4–37.3; O2SAT 90–95
[2025-06-23] MEDS: HEPARIN SOD/D5W 100 UNITS/ML 25,000 UNITS/250 ML BAG 16 UNITS IV CONT (01:23)
--- NOTE | 2025-06-23 05:44 | ECG_ITS ---
Test Date: 2025-06-23 05:44:27 Measurements Intervals [place] Rate: 45 P: 0 MD: 0 QRS: 260 QRSD: 150 T: -70 QT: 536 QTc: 466 Interpretive Statements THIS ELECTROCARDIOGRAM IS OF VERY POOR QUALITY TO THE POINT WHERE IT IS UNINTERPRETABLE Electronically Signed On 06-24-2025 11:21:28 [employer] PROF[employer] by Duong Ayala M.D.
[2025-06-23 05:54] LABS: Hematocrit 34.7 % (37.0-47.0); Hemoglobin 11.3 g/dL (12.0-15.0); Immature Granulocyte Percent A 0.5 % (0-0.5); Lymphocytes Absolute Auto 2.81 K/mm3 (0.9-3.2); Mean Corpuscular HGB Conc 32.6 g/dl (32-36); Mean Corpuscular Hemoglobin 32.5 pg (26-34); Mean Corpuscular Volume 99.7 fl (80-100); Nucleated Red Blood Cells Absolute Auto 0.000 K/mm3 (0.0-0.012); Nucleated Red Blood Cells Perc 0.0 % (0.0-0.2); Platelet Count Result 180 k/mm3 (150-375); Red Blood Count 3.48 M/mm3 (4.2-5.4); White Blood Count 8.5 K/mm3 (4.5-10.0)
[2025-06-23 06:07] LABS: Alanine Aminotransferase 23 U/L (6-35); Albumin Level 3.2 g/dL (3.5-5.1); Alkaline Phosphatase 82 U/L (38-126); Anion Gap 5 mmol/L (4-12); Aspartate Amino Transferase 28 U/L (14-36); Bilirubin,Total 0.6 mg/dL (0.2-1.3); Blood Urea Nitrogen 64 mg/dL (7-17); Calcium 8.3 mg/dL (8.4-10.2); Carbon Dioxide 22 mmol/L (22-30); Chloride 104 mmol/L (98-107); Estimated CRCL calculation 22 ml/min; Estimated Glomerular Filt Rate 22; Glucose 166 mg/dL (65-110); Magnesium 2.4 mg/dL (1.6-2.3); Potassium 4.3 mmol/L (3.4-5.0); Sodium 131 mmol/L (137-145); Total Protein 6.0 g/dL (6.3-8.2)
[2025-06-23] MEDS: LEVOTHYROXINE SODIUM 100 MCG TABLET PO (06:14)
[2025-06-23 06:41] LABS: Partial Thromboplastin Time 176.6 Seconds (22.3-36.8)
[2025-06-23] MEDS: FLUTICASONE/UMECLIDIN/VILANTER 100-62.5-25 MCG ELLIPTA 1 PUFF INHALATION (07:18)
--- NOTE | 2025-06-23 07:43 | P.PNCA_ITS ---
Progress Note: A&P Assessment and Plan (1) Atrial fibrillation with rapid ventricular response: Code(s): I48.91 - Unspecified atrial fibrillation Status: Acute Assessment and Plan: Back in sinus rhythm. [id number]. On heparin drip. Upon discharge will change heparin to Eliquis 2.5 mg BID. Start 06/20/25 Sotalol. On low dose Sotalol 40 mg in AM given her overnight HR drops to mid 30's bpm. Will sign off, please call with any questions. (2) CAD (coronary artery disease): Qualifiers: Coronary Disease-Associated Artery/Lesion type: unspecified vessel or lesion type [place] vs. transplanted heart: unspecified whether [place] or transplanted heart Associated angina: unspecified whether angina present Qualified Code(s): I25.10 - Atherosclerotic heart disease of [place] coronary artery without angina pectoris Code(s): I25.10 - Atherosclerotic heart disease of [place] coronary artery without angina pectoris Status: Acute Assessment and Plan: Stable. (3) Hypertension: Qualifiers: Hypertension type: essential hypertension Qualified Code(s): I10 - Essential (primary) hypertension Code(s): I10 - Essential (primary) hypertension Status: Acute Assessment and Plan: High but improved. Monitor BP. (4) Hyperlipidemia: Qualifiers: Hyperlipidemia type: mixed hyperlipidemia Qualified Code(s): E78.2 - Mixed hyperlipidemia Code(s): E78.5 - Hyperlipidemia, unspecified Status: Acute Assessment and Plan: On Atorvastatin. (5) COPD (chronic obstructive pulmonary disease): Code(s): J44.9 - Chronic obstructive pulmonary disease, unspecified Status: Acute (6) CHF (congestive heart failure): Qualifiers: Heart failure chronicity: unspecified Heart failure type: unspecified Qualified Code(s): I50.9 - Heart failure, unspecified Code(s): I50.9 - Heart failure, unspecified Status: Acute Assessment and Plan: Appears euvolemic. 06/20/25 Echo: EF 65-70%, mod LVH, significant diastolic dysfunction (E/e' 48), severe LAE, mod MAC/MV calcification, mild MR/TR, RVSP 63 mmHg. Subjective Date/time seen: 06/23/25 07:43 Interval history: She has sob but better. No chest pain. Exam Const: General: cooperative, healthy appearing and comfortable Orientati on/consciousness: oriented to person, oriented to place and oriented to time Resp: Auscultation: no crackles, no rales, no rhonchi, no wheezes and diminished lung sounds Cardio: Rate: regular rate Rhythm: regular rhythm Heart sounds: no murmurs Peripheral pulses: dorsalis pedis present Neuro: General: oriented to person, oriented to place and oriented to time Extrem: Right lower extremity: no edema Left lower extremity: no edema Objective Data Vital Signs Vital Signs: Vital Signs - 24 hr 06/22/25 07:44 06/22/25 07:56 06/22/25 08:00 Temperature 98.3 F Pulse Rate 49 L Respiratory Rate 18 Blood Pressure 156/58 H Pulse Oximetry 92 92 92 Oxygen Delivery High Flow Nasal Cannula High Flow Nasal Cannula Oxygen Flow Rate 11 5 06/22/25 08:00 06/22/25 10:00 06/22/25 12:00 Temperature 97.9 F Pulse Rate 52 L 51 L 54 L Respiratory Rate 21 H Blood Pressure 154/47 H Pulse Oximetry 90 Oxygen Delivery Oxygen Flow Rate 06/22/25 12:00 06/22/25 12:00 06/22/25 14:00 Temperature Pulse Rate 62 49 L Respiratory Rate Blood Pressure Pulse Oximetry 90 Oxygen Delivery High Flow Nasal Cannula Oxygen Flow Rate 5 06/22/25 16:00 06/22/25 16:00 06/22/25 16:00 Temperature 98.1 F Pulse Rate 52 L 49 L Respiratory Rate 20 Blood Pressure 147/55 H Pulse Oximetry 92 90 Oxygen Delivery High Flow Nasal Cannula Oxygen Flow Rate 5 06/22/25 18:00 06/22/25 19:40 06/22/25 20:00 Temperature 98.0 F Pulse Rate 46 L 52 L 47 L Respiratory Rate 21 H Blood Pressure 151/46 H Pulse Oximetry 92 Oxygen Delivery Oxygen Flow Rate 06/22/25 21:39 06/22/25 22:00 06/23/25 00:00 Temperature Pulse Rate 56 L 48 L 45 L Respiratory Rate Blood Pressure Pulse Oximetry 90 Oxygen Delivery CPAP Oxygen Flow Rate 06/23/25 00:21 06/23/25 02:00 06/23/25 04:00 Temperature 98.5 F Pulse Rate 46 L 45 L 41 L Respiratory Rate 18 Blood Pressure 150/50 H Pulse Oximetry 93 Oxygen Delivery Oxygen Flow Rate 06/23/25 04:03 06/23/25 04:30 06/23/25 06:00 Temperature 98.5 F Pulse Rate 46 L 45 L 44 L Respiratory Rate 20 Blood Pressure 178/56 H Pulse Oximetry 92 92 Oxygen Delivery CPAP Oxygen Flow Rate 06/23/25 07:21 06/23/25 07:21 Temperature Pulse Rate 59 L 59 L Respiratory Rate 18 Blood Pressure Pulse Oximetry 90 Oxygen Delivery High Flow Nasal Cannula Oxygen Flow Rate 5 Intake/Output Intake/Output: Intake & Output 06/20/25 06/21/25 06/22/25 06/23/25 23:59 23:59 23:59 23:59 Intake Total 721.6 1330.3 1389.2 635.1 Output Total 350 1400 350 250 Balance 371.6 -69.7 1039.2 385.1 Meds/Results Medications: Active Medications Generic Name Dose Route Start Last Admin Trade Name Freq PRN Reason Stop Dose Admin Acetaminophen 1,000 mg 06/19/25 22:44 06/22/25 21:13 Acetaminophen 500 Mg Tablet PO 1,000 mg TID PRN Administration Mild Pain (1-3) or Fever Allopurinol 100 mg 06/23/25 09:00 Allopurinol 100 Mg Tablet PO Q48HR [facility] Amlodipine Besylate 10 mg 06/20/25 09:00 06/22/25 09:16 Amlodipine Besylate 10 Mg Tablet BY MOUTH 10 mg DAILY DAVID Administration Aspirin 81 mg 06/20/25 09:00 06/22/25 09:16 Aspirin 81 Mg Enteric Tablet PO 81 mg DAILY DAVID Administration Atorvastatin Calcium 80 mg 06/20/25 09:55 06/22/25 09:15 Atorvastatin 40 Mg Tablet PO 80 mg DAILY DAVID Administration Dextrose 12.5 gm 06/19/25 21:30 Dextrose 50% 25 Gm/50 Ml Syringe IV PUSH PRN PRN Hypoglycemia Protocol Fluticasone Propionate 1 spray 06/20/25 09:00 06/22/25 21:08 Fluticasone Propionate 0.05% Na Spr 16 Gm Btl (*Bkc) NASAL 1 spray Q12H DAVID Administration Fluticasone/Umeclidinium/Vilanterol 1 puff 06/20/25 09:00 06/23/25 07:18 Fluticasone/Umeclidin/Vilanter 100-62.5-25 Mcg Ellipta INHALATION 1 puff Q24H DAVID Administration Glucose 15 gm 06/19/25 21:30 Glucose Oral Gel 15 Gm Of Glucse In 37.5 Gm Tube PO PRN PRN Hypoglycemia Protocol Guaifenesin 1,200 mg 06/22/25 09:20 06/22/25 21:08 Guaifenesin 12 Hr 600 Mg Tabcr PO 1,200 mg Q12HR DAVID Administration Heparin Sodium (Porcine) 5,500 units 06/19/25 19:03 06/21/25 02:12 Heparin Sodium 5,000 Units/Ml Vial IV PUSH 5,500 units PRN PRN Administration aPTT less than 55 seconds Heparin Sodium (Porcine) 2,500 units 06/19/25 19:03 06/20/25 13:30 Heparin Sodium 5,000 Units/Ml Vial IV PUSH 2,500 units PRN PRN Administration aPTT 55 - 70 seconds Hydralazine HCl 100 mg 06/22/25 17:00 06/22/25 21:08 Hydralazine Hcl 50 Mg Tablet PO 100 mg QID DAVID Administration Hydrochlorothiazide 12.5 mg 06/20/25 09:50 06/22/25 09:16 Hydrochlorothiazide 12.5 Mg Capsule PO 12.5 mg DAILY DAVID Administration Heparin Sodium/Dextrose 25,000 units in 250 mls @ 16 mls/hr 06/19/25 19:05 06/23/25 06:42 Heparin Sodium/D5w 100 Units/Ml IV CONT 1,600 units/hr .[id number] DAVID 16 mls/hr Protocol Titration 1,600 UNITS/HR Dextrose 1,000 mls @ 100 mls/hr 06/19/25 21:30 Dextrose 5% 1,000 Ml IVPB PRN PRN Hypoglycemia Protocol Ceftriaxone Sodium 1 gm/ 50 mls @ 100 mls/hr 06/22/25 09:00 06/22/25 09:46 Sodium Chloride IVPB Infused Q24H DAVID Infusion Levofloxacin/Dextrose 750 mg in 150 mls @ 100 mls/hr 06/22/25 09:00 06/22/25 10:46 Levaquin 750 Mg/D5w 150 Ml IVPB Infused Q48HR DAVID Infusion Insulin Aspart 2 - 5 units 06/20/25 08:00 06/22/25 16:54 Insulin Aspart (*Bkc) 100 Units/Ml SUB-Q Not Given TIDWM [facility] Protocol Insulin Aspart 1 - 2 units 06/20/25 21:00 06/22/25 21:07 Insulin Aspart (*Bkc) 100 Units/Ml SUB-Q Not Given HS [facility] Protocol Isosorbide Mononitrate 60 mg 06/20/25 09:50 06/22/25 09:16 Isosorbide Mononitrate 60 Mg Tab.Er.24h PO 60 mg DAILY DAVID Administration Levalbuterol HCl 0.63 mg 06/21/25 19:41 06/21/25 20:05 Levalbuterol Neb 1.25 Mg/3 Ml INHALATION 0.63 mg Q6HRT PRN Administration shortness of breath Levothyroxine Sodium 100 mcg 06/21/25 06:30 06/23/25 06:14 Levothyroxine Sodium 100 Mcg Tablet PO 100 mcg DAILY@0630 DAVID Administration Losartan Potassium 100 mg 06/20/25 09:00 06/22/25 09:16 Losartan Potassium 100 Mg Tablet PO 100 mg On Hold: 06/22/25 15:20 DAILY DAVID Administration Perflutren Lipid Microsphere 0 ml 06/21/25 10:46 Perflutren Lipid Microspheres 1.5 Ml Vial Diluted To 10 Ml Total Volume IV PUSH 06/24/25 10:46 ONCE PRN adequate visualization Protocol Sotalol HCl 40 mg 06/21/25 09:00 06/22/25 09:15 Sotalol Hcl 40 Mg Tablet PO 40 mg DAILY DAVID Administration Radiology Results: ITS Impressions Pulmonary Perfusion Imaging 06/21/25 11:25 IMPRESSION: No compelling or large segmental size areas of mismatch, and with right base findings on today's chest x-ray, the perfusion mismatch in the right base is of uncertain significance. Per PIOPED criteria, this is an indeterminate INTERMEDIATE probability for pulmonary embolus. Renal Ultrasound 06/21/25 13:56 IMPRESSION: 1. Normal kidneys without hydronephrosis. Chest CT 06/21/25 14:30 IMPRESSION: 1. Bibasilar consolidations likely associated with aspiration versus community- acquired pneumonia. Mucoid appearing changes in the bronchi endotracheal air column support aspiration. Findings should be followed radiographically until clear. 2. Other chronic appearing findings. Chest X-Ray 06/22/25 07:45 IMPRESSION: 1. Stable to mildly improved appearance of interstitial/vascular markings. Labs Labs: Laboratory Results - last 24 hr 06/22/25 06/22/25 06/22/25 07:43 11:09 11:29 WBC RBC Hgb Hct MCV MCH MCHC RDW Plt Count MPV Immature Gran % (Auto) Neut % (Auto) Lymph % (Auto) [place] % (Auto) Eos % (Auto) Baso % (Auto) Lymph # (Auto) [place] # (Auto) Eos # (Auto) Baso # (Auto) Abs Immat Gran (auto) Absolute Neuts (auto) Absolute Nucleated RBC Nucleated RBC % APTT Sodium Potassium Chloride Carbon Dioxide Anion Gap BUN Creatinine Estim Creat Clear Calc Estimated GFR Glucose POC Capillary Glucose 179 H 181 H Calcium Magnesium Total Bilirubin AST ALT Alkaline Phosphatase Total Protein Albumin Nasal MRSA (PCR) Not detected Influenza A (RT-PCR) Negative Influenza B (RT-PCR) Negative RSV (RT-PCR) Negative SARS-CoV-2 RNA (RT-PCR) Negative 06/22/25 06/22/25 06/23/25 16:33 20:25 05:38 WBC 8.5 RBC 3.48 L Hgb 11.3 L Hct 34.7 L MCV 99.7 MCH 32.5 MCHC 32.6 RDW 14.1 Plt Count 180 MPV 12.1 H Immature Gran % (Auto) 0.5 Neut % (Auto) 57.0 Lymph % (Auto) 33.1 [place] % (Auto) 6.4 Eos % (Auto) 2.6 Baso % (Auto) 0.4 Lymph # (Auto) 2.81 [place] # (Auto) 0.5 Eos # (Auto) 0.2 Baso # (Auto) 0.0 Abs Immat Gran (auto) 0.04 H Absolute Neuts (auto) 4.9 Absolute Nucleated RBC 0.000 Nucleated RBC % 0.0 APTT 176.6 H* Sodium 131 L Potassium 4.3 Chloride 104 Carbon Dioxide 22 Anion Gap 5 BUN 64 H Creatinine 2.15 H Estim Creat Clear Calc 22 Estimated GFR 22 L Glucose 166 H POC Capillary Glucose 191 H 153 H Calcium 8.3 L Magnesium 2.4 H Total Bilirubin 0.6 AST 28 ALT 23 Alkaline Phosphatase 82 Total Protein 6.0 L Albumin 3.2 L Nasal MRSA (PCR) Influenza A (RT-PCR) Influenza B (RT-PCR) RSV (RT-PCR) SARS-CoV-2 RNA (RT-PCR)
[2025-06-23 07:53] LABS: NT Pro B Type Natriuretic Pept 3190 pg/mL (19.9-100)
--- NOTE | 2025-06-23 08:19 | P.PNIM_ITS ---
Progress Note: A&P Assessment and Plan (1) CHF (congestive heart failure): Qualifiers: Heart failure chronicity: unspecified Heart failure type: unspecified Qualified Code(s): I50.9 - Heart failure, unspecified Code(s): I50.9 - Heart failure, unspecified Status: Acute Assessment and Plan: Pulmonary vascular congestion on x-ray/auscultation of lungs. No lower extremity edema. Reports she was discharged from [facility] in December 2024 with heart failure but not sent home on diuretics. Patient did receive 1 L normal saline bolus in the ER, -admitted with AFib with RVR is controlled we will monitor. Continue heparin gtt. - Daily weights, strict intake/output. -Pt diagnosed with CHF December 2024 with no new meds. -06/21: V/Q scan showed intermediate probability for PE -06/21: overnight patient had increased oxygen requirements, currently on 8 L nasal cannula -06/21: Chest x-ray showed pulmonary vascular congestion, will give Lasix - patient may have HFpEF since she has diastolic dysfunction as seen on echocardiogram is under which could be related to her systemic hypertension and pulmonary hypertension 06/23: Adjusted oral antihypertensive medication. Holding losartan due to DEBBIE on CKD. Increase hydralazine from 75 mg 100 mg qid.. Added nifedipine 30 mg p.o. q.d.. Will continue hydrochlorothiazide 12.5 mg p.o. q.d. and isosorbide mononitrate 60 mg p.o. q.d. and sotalol 40 mg p.o. q.d. 06/20/25: Echocardiogram Summary 1. Definity contrast administered improved wall motion interpretation. 2. Left ventricular chamber dimension is normal. 3. Left ventricular systolic function is normal, estimated at 65-70. 4. There is moderate concentric increased left ventricular wall thickness. 5. E/e' 48 is significantly elevated. 6. Left atrial chamber dimension is severely enlarged. 7. The mitral valve has moderately calcified leaflets and a moderately calcified annulus. 8. There is mild mitral valve regurgitation. 9. There is mild tricuspid valve regurgitation. 10. Severe pulmonary hypertension, estimated pulmonary arterial systolic pressure is 63 mmHg. 11. Dilated inferior vena cava with >50% collapse upon inspiration consistent with elevated right atrial pressure, 10 mmHg. (2) Atrial fibrillation with rapid ventricular response: Code(s): I48.91 - Unspecified atrial fibrillation Status: Acute Assessment and Plan: ED EKG showed AFib with RVR rate 155, patient received Cardizem 15 mg IV x1, with subsequent rate control an EKG demonstrating AFib. Shortness of breath resolved. Currently AFib with controlled rate. Continue heparin GTT. -appreciate cardiology evaluation recommendation -06/20: started on sotalol b.i.d. which has been decreased to once daily due to bradycardia (on 06/21) -TSH within normal limits, -magnesium and potassium levels within normal limits -continue IMU status -will discuss with Cardiology regarding switching to Eliquis -echocardiogram as above (3) DEBBIE (acute kidney injury): Code(s): N17.9 - Acute kidney failure, unspecified Status: Acute Assessment and Plan: Now that her AFib with RVR is controlled we will monitor. Daily weights, strict intake/output. -1L given in ED, pt with CHF hx (new December 2024) -DEBBIE could be related to elevated blood pressure, CHF, atrial fibrillation 06/20: Creatinine baseline seems to be around 1.3-1.6, -creatinine gradually improving -continue blood pressure medications -will consult Nephrology (4) Chronic kidney disease, stage 3b: Code(s): N18.32 - Chronic kidney disease, stage 3b Status: Acute Assessment and Plan: Holding losartan Increasing hydralazine from 75 mg to 100 q.i.d. Holding losartan due to DEBBIE on CKD. Increase hydralazine from 75 mg 100 mg qid.. Added nifedipine 30 mg p.o. q.d.. Will continue hydrochlorothiazide 12.5 mg p.o. q.d. and isosorbide mononitrate 60 mg p.o. q.d. and sotalol 40 mg p.o. q.d. (5) COPD (chronic obstructive pulmonary disease): Code(s): J44.9 - Chronic obstructive pulmonary disease, unspecified Status: Acute Assessment and Plan: Mild COPD exacerbation, her symptoms could have been related to AFib and pulmonary vascular congestion. received Solu-Medrol with EMS. 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 06/20: Pt with clear lungs today -Steroids given in ED, if wheezing continues, may give additional steroids. -06/21: Increasing oxygen requirements. - Appreciate pulmonology evaluation -patient with HFpEF, possible COPD, possible PE as V/Q scan on 06/21 showed intermediate probability -continue anticoagulation -continue Trelegy per pulmonology (6) CAD (coronary artery disease): Qualifiers: Associated angina: unspecified whether angina present Coronary Disease- Associated Artery/Lesion type: unspecified vessel or lesion type [place] vs. transplanted heart: unspecified whether [place] or transplanted heart Qualified Code(s): I25.10 - Atherosclerotic heart disease of [place] coronary artery without angina pectoris Code(s): I25.10 - Atherosclerotic heart disease of [place] coronary artery without angina pectoris Status: Acute Assessment and Plan: 06/20: S/p stents. Resume VETERINARY MICROBIOLOGIST aspirin and atorvastatin. (7) Type 2 diabetes mellitus with diabetic chronic kidney disease: Code(s): E11.22 - Type 2 diabetes mellitus with diabetic chronic kidney disease Status: Acute Assessment and Plan: Accu-Cheks ACHS with low-dose insulin sliding scale and hypoglycemia protocol. (8) Hypertension: Qualifiers: Hypertension type: essential hypertension Qualified Code(s): I10 - Essential (primary) hypertension Code(s): I10 - Essential (primary) hypertension Status: Acute Assessment and Plan: Acute on chronic. VETERINARY MICROBIOLOGIST antihypertensives once med rec entered. Patient does state that her blood pressures are normally in the 160s to 180s range 06/20: Restarted Pt home meds: losartan 100mg, hctz 25mg, -increase hydralazine to 75 mg Q i.d. -Continue to monitor (9) Pulmonary hypertension: Code(s): I27.20 - Pulmonary hypertension, unspecified Status: Acute Assessment and Plan: Severe pulmonary hypertension as seen on echocardiogram with RVSP of 63 mmHg -pulmonology and cardiology following the patient Plan DVT prophylaxis: Heparin infusion Stress ulcer prophylaxis: Not indicated Nutrition: Diabetic and heart healthy diet Code Status: DNR Subjective Date/time seen: 06/23/25 08:19 Interval history: Currently holding losartan. Yesterday increased hydralazine 75 mg q.i.d. to 100 mg q.i.d.. Patient remains hypertensive. Patient creatinine improved. Added nifedipine Review of Systems Review of Systems: All systems reviewed & are unremarkable except as noted in HPI and below Exam Narrative: General: Pleasant female, having some shortness of breath HEENT:? Pupils equal reactive, sclera is clear, moist oral mucosa Neck:? Supple Respiratory:? Coarse breath sounds bilaterally, decreased at bases, no wheezing Cardiac:? Is irregularly irregular, rate controlled/bradycardia Abdomen:? Soft, nontender, nondistended, protuberant, normoactive bowel sounds Extremities:? Extremities are warm, no cyanosis, no edema Neuro:? Patient is awake, alert, oriented, nonfocal, follows simple commands and answers questions appropriately Skin:? No lesions noted Psych:? Normal mentation and affect Const: General: comfortable and no acute distress Other: A&O x4, obese HENMT: Mouth: Yes moist mucous membranes Eyes: General: appearance normal, both eyes and all related structures Sclera: sclerae normal Pupils: Equal, round and reactive pupils present Neck: Neck: supple Carotids: no bruits Resp: Effort & Inspection: normal respiratory effort Other: Diminished lung sounds, no wheezes present. Tachypneic initially, resolved Cardio: Rate: regular rate Rhythm: regular rhythm and abnormal rhythm Other: Tele: 61bpm GI: Inspection: non-distended Auscultation: normal bowel sounds : General: Yes bladder normal to palpation Bimanual exam- vagina & uterus: bladder normal to palpation Skin: General skin exam: normal color and no rashes or lesions noted Neuro: Cranial nerves: Yes Equal, round and reactive pupils present Motor exam (neuro): 5/5 motor strength present throughout and Normal motor muscle tone present throughout Sensory Exam: normal sensation Extrem: General: no edema Psych: Mental Status: mental status grossly normal Affect: normal affect Objective Data Vital Signs Vital Signs: Vital Signs - 24 hr 06/22/25 10:00 06/22/25 12:00 06/22/25 12:00 Temperature 97.9 F Pulse Rate 51 L 54 L Respiratory Rate 21 H Blood Pressure 154/47 H Pulse Oximetry 90 90 Oxygen Delivery High Flow Nasal Cannula Oxygen Flow Rate 5 06/22/25 12:00 06/22/25 14:00 06/22/25 16:00 Temperature 98.1 F Pulse Rate 62 49 L 52 L Respiratory Rate 20 Blood Pressure 147/55 H Pulse Oximetry 92 Oxygen Delivery Oxygen Flow Rate 06/22/25 16:00 06/22/25 16:00 06/22/25 18:00 Temperature Pulse Rate 49 L 46 L Respiratory Rate Blood Pressure Pulse Oximetry 90 Oxygen Delivery High Flow Nasal Cannula Oxygen Flow Rate 5 06/22/25 19:40 06/22/25 20:00 06/22/25 21:39 Temperature 98.0 F Pulse Rate 52 L 47 L 56 L Respiratory Rate 21 H Blood Pressure 151/46 H Pulse Oximetry 92 90 Oxygen Delivery CPAP Oxygen Flow Rate 06/22/25 22:00 06/23/25 00:00 06/23/25 00:21 Temperature 98.5 F Pulse Rate 48 L 45 L 46 L Respiratory Rate 18 Blood Pressure 150/50 H Pulse Oximetry 93 Oxygen Delivery Oxygen Flow Rate 06/23/25 02:00 06/23/25 04:00 06/23/25 04:03 Temperature 98.5 F Pulse Rate 45 L 41 L 46 L Respiratory Rate 20 Blood Pressure 178/56 H Pulse Oximetry 92 Oxygen Delivery Oxygen Flow Rate 06/23/25 04:30 06/23/25 06:00 06/23/25 07:21 Temperature Pulse Rate 45 L 44 L 59 L Respiratory Rate Blood Pressure Pulse Oximetry 92 90 Oxygen Delivery CPAP High Flow Nasal Cannula Oxygen Flow Rate 5 06/23/25 07:21 06/23/25 08:00 Temperature 97.5 F L Pulse Rate 59 L 48 L Respiratory Rate 18 16 Blood Pressure 195/46 H Pulse Oximetry 93 Oxygen Delivery Oxygen Flow Rate Intake/Output Intake/Output: Intake & Output 06/20/25 06/21/25 06/22/25 06/23/25 23:59 23:59 23:59 23:59 Intake Total 721.6 1330.3 1389.2 651.9 Output Total 350 1400 350 250 Balance 371.6 -69.7 1039.2 401.9 Meds/Results Medications: Active Medications Generic Name Dose Route Start Last Admin Trade Name Freq PRN Reason Stop Dose Admin Acetaminophen 1,000 mg 06/19/25 22:44 06/22/25 21:13 Acetaminophen 500 Mg Tablet PO 1,000 mg TID PRN Administration Mild Pain (1-3) or Fever Allopurinol 100 mg 06/23/25 09:00 Allopurinol 100 Mg Tablet PO Q48HR DAVID Amlodipine Besylate 10 mg 06/20/25 09:00 06/22/25 09:16 Amlodipine Besylate 10 Mg Tablet BY MOUTH 10 mg DAILY DAVID Administration Aspirin 81 mg 06/20/25 09:00 06/22/25 09:16 Aspirin 81 Mg Enteric Tablet PO 81 mg DAILY DAVID Administration Atorvastatin Calcium 80 mg 06/20/25 09:55 06/22/25 09:15 Atorvastatin 40 Mg Tablet PO 80 mg DAILY DAVID Administration Dextrose 12.5 gm 06/19/25 21:30 Dextrose 50% 25 Gm/50 Ml Syringe IV PUSH PRN PRN Hypoglycemia Protocol Fluticasone Propionate 1 spray 06/20/25 09:00 06/22/25 21:08 Fluticasone Propionate 0.05% Na Spr 16 Gm Btl (*Bkc) NASAL 1 spray Q12H DAVID Administration Fluticasone/Umeclidinium/Vilanterol 1 puff 06/20/25 09:00 06/23/25 07:18 Fluticasone/Umeclidin/Vilanter 100-62.5-25 Mcg Ellipta INHALATION 1 puff Q24H DAVID Administration Glucose 15 gm 06/19/25 21:30 Glucose Oral Gel 15 Gm Of Glucse In 37.5 Gm Tube PO PRN PRN Hypoglycemia Protocol Guaifenesin 1,200 mg 06/22/25 09:20 06/22/25 21:08 Guaifenesin 12 Hr 600 Mg Tabcr PO 1,200 mg Q12HR DAVID Administration Heparin Sodium (Porcine) 5,500 units 06/19/25 19:03 06/21/25 02:12 Heparin Sodium 5,000 Units/Ml Vial IV PUSH 5,500 units PRN PRN Administration aPTT less than 55 seconds Heparin Sodium (Porcine) 2,500 units 06/19/25 19:03 06/20/25 13:30 Heparin Sodium 5,000 Units/Ml Vial IV PUSH 2,500 units PRN PRN Administration aPTT 55 - 70 seconds Hydralazine HCl 100 mg 06/22/25 17:00 06/22/25 21:08 Hydralazine Hcl 50 Mg Tablet PO 100 mg QID DAVID Administration Hydrochlorothiazide 12.5 mg 06/20/25 09:50 06/22/25 09:16 Hydrochlorothiazide 12.5 Mg Capsule PO 12.5 mg DAILY DAVID Administration Heparin Sodium/Dextrose 25,000 units in 250 mls @ 14 mls/hr 06/19/25 19:05 06/23/25 07:45 Heparin Sodium/D5w 100 Units/Ml IV CONT 1,400 units/hr .[id number] DAVID 14 mls/hr Protocol Titration 1,400 UNITS/HR Dextrose 1,000 mls @ 100 mls/hr 06/19/25 21:30 Dextrose 5% 1,000 Ml IVPB PRN PRN Hypoglycemia Protocol Ceftriaxone Sodium 1 gm/ 50 mls @ 100 mls/hr 06/22/25 09:00 06/22/25 09:46 Sodium Chloride IVPB Infused Q24H DAVID Infusion Levofloxacin/Dextrose 750 mg in 150 mls @ 100 mls/hr 06/22/25 09:00 06/22/25 10:46 Levaquin 750 Mg/D5w 150 Ml IVPB Infused Q48HR DAVID Infusion Insulin Aspart 2 - 5 units 06/20/25 08:00 06/23/25 07:57 Insulin Aspart (*Bkc) 100 Units/Ml SUB-Q Not Given TIDWM DAVID Protocol Insulin Aspart 1 - 2 units 06/20/25 21:00 06/22/25 21:07 Insulin Aspart (*Bkc) 100 Units/Ml SUB-Q Not Given HS DAVID Protocol Isosorbide Mononitrate 60 mg 06/20/25 09:50 06/22/25 09:16 Isosorbide Mononitrate 60 Mg Tab.Er.24h PO 60 mg DAILY DAVID Administration Levalbuterol HCl 0.63 mg 06/21/25 19:41 06/21/25 20:05 Levalbuterol Neb 1.25 Mg/3 Ml INHALATION 0.63 mg Q6HRT PRN Administration shortness of breath Levothyroxine Sodium 100 mcg 06/21/25 06:30 06/23/25 06:14 Levothyroxine Sodium 100 Mcg Tablet PO 100 mcg DAILY@0630 DAVID Administration Losartan Potassium 100 mg 06/20/25 09:00 06/22/25 09:16 Losartan Potassium 100 Mg Tablet PO 100 mg On Hold: 06/22/25 15:20 DAILY DAVID Administration Perflutren Lipid Microsphere 0 ml 06/21/25 10:46 Perflutren Lipid Microspheres 1.5 Ml Vial Diluted To 10 Ml Total Volume IV P USH 06/24/25 10:46 ONCE PRN adequate visualization Protocol Sotalol HCl 40 mg 06/21/25 09:00 06/22/25 09:15 Sotalol Hcl 40 Mg Tablet PO 40 mg DAILY DAVID Administration Radiology Results: ITS Impressions Pulmonary Perfusion Imaging 06/21/25 11:25 IMPRESSION: No compelling or large segmental size areas of mismatch, and with right base findings on today's chest x-ray, the perfusion mismatch in the right base is of uncertain significance. Per PIOPED criteria, this is an indeterminate INTERMEDIATE probability for pulmonary embolus. Renal Ultrasound 06/21/25 13:56 IMPRESSION: 1. Normal kidneys without hydronephrosis. Chest CT 06/21/25 14:30 IMPRESSION: 1. Bibasilar consolidations likely associated with aspiration versus community- acquired pneumonia. Mucoid appearing changes in the bronchi endotracheal air column support aspiration. Findings should be followed radiographically until clear. 2. Other chronic appearing findings. Chest X-Ray 06/22/25 07:45 IMPRESSION: 1. Stable to mildly improved appearance of interstitial/vascular markings. Labs Labs: Laboratory Results - last 24 hr 06/22/25 06/22/25 06/22/25 11:09 11:29 16:33 WBC RBC Hgb Hct MCV MCH MCHC RDW Plt Count MPV Immature Gran % (Auto) Neut % (Auto) Lymph % (Auto) [place] % (Auto) Eos % (Auto) Baso % (Auto) Lymph # (Auto) [place] # (Auto) Eos # (Auto) Baso # (Auto) Abs Immat Gran (auto) Absolute Neuts (auto) Absolute Nucleated RBC Nucleated RBC % APTT Sodium Potassium Chloride Carbon Dioxide Anion Gap BUN Creatinine Estim Creat Clear Calc Estimated GFR Glucose POC Capillary Glucose 181 H 191 H Calcium Magnesium Total Bilirubin AST ALT Alkaline Phosphatase NT-Pro-B Natriuret Pep Total Protein Albumin Nasal MRSA (PCR) Not detected Influenza A (RT-PCR) Negative Influenza B (RT-PCR) Negative RSV (RT-PCR) Negative SARS-CoV-2 RNA (RT-PCR) Negative 06/22/25 06/23/25 06/23/25 20:25 05:33 05:38 WBC 8.5 RBC 3.48 L Hgb 11.3 L Hct 34.7 L MCV 99.7 MCH 32.5 MCHC 32.6 RDW 14.1 Plt Count 180 MPV 12.1 H Immature Gran % (Auto) 0.5 Neut % (Auto) 57.0 Lymph % (Auto) 33.1 [place] % (Auto) 6.4 Eos % (Auto) 2.6 Baso % (Auto) 0.4 Lymph # (Auto) 2.81 [place] # (Auto) 0.5 Eos # (Auto) 0.2 Baso # (Auto) 0.0 Abs Immat Gran (auto) 0.04 H Absolute Neuts (auto) 4.9 Absolute Nucleated RBC 0.000 Nucleated RBC % 0.0 APTT 176.6 H* Sodium 131 L Potassium 4.3 Chloride 104 Carbon Dioxide 22 Anion Gap 5 BUN 64 H Creatinine 2.15 H Estim Creat Clear Calc 22 Estimated GFR 22 L Glucose 166 H POC Capillary Glucose 153 H Calcium 8.3 L Magnesium 2.4 H Total Bilirubin 0.6 AST 28 ALT 23 Alkaline Phosphatase 82 NT-Pro-B Natriuret Pep 3190 H Total Protein 6.0 L Albumin 3.2 L Nasal MRSA (PCR) Influenza A (RT-PCR) Influenza B (RT-PCR) RSV (RT-PCR) SARS-CoV-2 RNA (RT-PCR) 06/23/25 07:23 WBC RBC Hgb Hct MCV MCH MCHC RDW Plt Count MPV Immature Gran % (Auto) Neut % (Auto) Lymph % (Auto) [place] % (Auto) Eos % (Auto) Baso % (Auto) Lymph # (Auto) [place] # (Auto) Eos # (Auto) Baso # (Auto) Abs Immat Gran (auto) Absolute Neuts (auto) Absolute Nucleated RBC Nucleated RBC % APTT Sodium Potassium Chloride Carbon Dioxide Anion Gap BUN Creatinine Estim Creat Clear Calc Estimated GFR Glucose POC Capillary Glucose 155 H Calcium Magnesium Total Bilirubin AST ALT Alkaline Phosphatase NT-Pro-B Natriuret Pep Total Protein Albumin Nasal MRSA (PCR) Influenza A (RT-PCR) Influenza B (RT-PCR) RSV (RT-PCR) SARS-CoV-2 RNA (RT-PCR) Quality VTE Prophylaxis VTE prophylaxis: pharmacologic ordered (Heparin gtt) Hospitalist MIPS Advance Care Plan I have confirmed that the patient's Advanced Care Plan is present, code status is documented, or surrogate decision maker is listed in patient medical record.: Yes Medication Reconciliation I have utilized all available resources to obtain, update and review the patients current medications (includes all prescriptions, OTC, herbals, cannabis, and nutritional supplements).: Yes
[2025-06-23] MEDS: ATORVASTATIN 40 MG TABLET 80 MG PO (09:32)
[2025-06-23] MEDS: guaiFENesin 12 HR 600 MG TABCR 1200 MG PO ×2 (09:32→21:12)
[2025-06-23] MEDS: ISOSORBIDE MONONITRATE 60 MG TAB.ER.24H PO (09:33)
[2025-06-23] MEDS: cefTRIAXone 1 GM in SODIUM CHLORIDE 0.9% IV 50 ML 100 ML IVPB (09:33)
[2025-06-23] MEDS: ASPIRIN 81 MG ENTERIC TABLET PO (09:33)
[2025-06-23] MEDS: FLUTICASONE PROPIONATE 0.05% NA SPR 16 GM BTL (*BKC) 1 SPRAY NASAL ×2 (09:33→21:12)
--- NOTE | 2025-06-23 10:10 | PM.PNPUL ---
Progress Note: A&P Assessment and Plan (1) COPD (chronic obstructive pulmonary disease): Code(s): J44.9 - Chronic obstructive pulmonary disease, unspecified Status: Acute Assessment and Plan: Regarding her COPD the patient tells me she did PFTs at [facility] 4-5 years ago and they told her she had a little bit of COPD. Patient had a CT scan of the chest in our system on 05/10/2020 with very mild apical predominant centrilobular emphysema. Her last CT scan low-dose on 09/13/2024 showed mild apical predominant centrilobular emphysema with no concerning masses or nodules. I have no PFTs. She has been maintained on inhalers. She wears no oxygen at home and a few months ago when she checked her pulse oximetry is 94-95%. Few months ago when she was feeling well she had 2 block limitation in her activity due to leg pain and back pain not dyspnea on exertion. At baseline she has no chronic cough, she produces phlegm 1 to 2 times a day and has no hemoptysis. Patient smoked tobacco from [id number] at half a pack a day for a total of 30 pack years. Patient was exposed to secondhand smoke from her father and after she moved out of her father's house she has lived with smokers all her life. Patient smokes marijuana 2-3 inhalations a day for the last 10 years and quit in May of 2025. Patient denies vaping, illicit drug use. 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 Current illness started on 06/17 where she had minimal shortness of breath with no cough, fever. She did have slightly more phlegm than usual with no hemoptysis. On 06/18 she noticed that her heart was racing and then her shortness of breath got much worse and she presented to the emergency department on 06/19/2025. She complained of worsening shortness of breath. EMS had given her DuoNebs x2 and Solu-Medrol. In the emergency department her heart rate was irregularly irregular at a heart rate of 157. Blood pressure was 162/73, respirations were 26 and a room air saturations were 94%. She was afebrile. Her lungs were clear to auscultation. Her white blood cell count was 9.6 with 0.6% eosinophils, her creatinine was 2.26, serum bicarb was 20, her chest x-ray showed congestion. Patient was treated for dehydration with 1 L IV fluid, IV diltiazem, IV heparin, ceftriaxone and doxycycline. It was felt she was not having a COPD exacerbation and steroids were discontinued. It was felt that she did not have a infection and her antibiotics were discontinued. 06/20/2025: Patient had an echocardiogram with an LVEF 65-70%. Severely enlarged left atrium, mild mitral regurg, mild tricuspid regurg with a PASP of 63. Normal RV size and function. Normal right atrial size. Mild mitral stenosis. 06/21/2025: Patient tells me she is breathing normal today. She denies phlegm or hemoptysis. Her cough is at her baseline. When I enter the room she was on Vapotherm with 45 L and 55% FiO2 with saturations 95%. I changed her to 15 L nasal cannula and sequentially decreased her to 8 L nasal cannula with saturations 91%. She felt better on the nasal cannula. She is afebrile. White blood cell count is 12.3, creatinine is 2.13, BNP is 6060. Free T4 is 1.37. Chest x-ray shows congestion. ABG on 8 L nasal cannula 7.40/35/59. Plan: I do not believe patient has having a COPD exacerbation, bronchitis or pneumonia. She does have hypoxemic respiratory failure without hypercarbic respiratory failure. I will continue her trelegy 100 which contains an muscarinic antagonist and I will therefore discontinue her nebulized ipratropium. Goal saturation 90-94%. Patient has hypoxic respiratory failure somewhat out of proportion to her imaging and I will obtain echo with bubble study today. Later in the day patient had a V/Q scan with no large subsegmental areas of mismatch perfusion mismatch in the right base correlates with x-ray findings overall intermediate study and no evidence of chronic thromboembolic disease. Later in the day patient had a CT chest with bibasilar dependent consolidations with some endobronchial mucus changes consistent with atelectasis or pneumonia, mild apical predominant centrilobular emphysema trace pleural effusions. Later in the day patient had a bubble study which demonstrated a couple of bubbles in the left side after 4-5 seconds suggesting of either a tiny patent foramen ovale or transpulmonary bubbles. 06/22/25: patient tells me she is better today. She states she is 80% back to her normal. She has no rest shortness of breath and has not been out of bed. She has having nose bleeds. She has cough with phlegm. When I enter the room she was on 10 L nasal cannula with saturations 96%. I suppose sequentially decreased her to 5 L and her saturations were 91%. Patient had a fever yesterday at 37.9. White blood cell count 9.4, creatinine 2.23, procalcitonin 0.1. PTT 87.9, Plan: patient with a fever last night, minimal cough but with some congestion, CT scan with basilar dependent consolidations with mucus. I will treat the patient for pneumonia. Blood cultures, nasal swab for MRSA, respiratory pathogen panel, mycoplasma IgM, urine Legionella antigen, urine pneumococcal antigen have been ordered. After blood cultures will initiate ceftriaxone 1 g Q 24 and Levaquin 750 mg Q 48 hours. I do not feel there is a COPD exacerbation with continue her trelegy 100. Goal saturation 90-94%, wean oxygen accordingly. I will add guaifenesin 1200 mg p.o. b.i.d. as she has phlegm that is difficult to expectorate. Given the likely dependent atelectasis I will start EzPAP. 06/23/2025: Patient continues to improve. She tells me is breathing normally at rest. She has no dyspnea on exertion walking from the bed to the chair. Her cough is normal. Her phlegm continues but it has improved. Phlegm color is brown. When I enter the room she was on 5 L nasal cannula with saturations 92%. I weaned her to room air and after 11 minutes her saturations were 90%. She is afebrile. White blood cell count 8.5, creatinine 2.15, BUN 64, PTT 176. BNP has improved from 6060 on 06/21/2025 to 3190 today. yesterday she was positive 1 L. Cumulative she is positive 2.9 L. Her weight today is 94 kg. Plan: patient feels improved today. I will Continue treatment for pneumonia. Blood cultures, nasal swab for MRSA, respiratory pathogen panel, mycoplasma IgM, urine Legionella antigen, urine pneumococcal antigen pending. continue ceftriaxone 1 g Q 24 and Levaquin 750 mg Q 48 hours. I do not feel there is a COPD exacerbation with continue her trelegy 100. Goal saturation 90-94%, wean oxygen accordingly and I weaned her to room air currently. Continue guaifenesin 1200 mg p.o. b.i.d. as she has phlegm that is difficult to expectorate. continue EzPAP. Discussed with Dr. Ruiz, will follow with you. (2) Pulmonary hypertension: Code(s): I27.20 - Pulmonary hypertension, unspecified Status: Acute Assessment and Plan: Patient was admitted to [facility] with fluid overload and congestive heart failure from 12/26/2024 through 12/30/2024. During that hospitalization she had an echocardiogram on 12/28 that showed grade 3 diastolic dysfunction, moderate mitral regurg, moderate tricuspid regurg with a PASP of 70. LV EF was not stated in the discharge summary. Hydralazine was added to her regimen. ABG during that admission was 7.32/42/59 and the patient was started on BiPAP and moved to the ICU and eventually transitioned to CPAP. She was discharged home on oxygen and she wore this for 2-3 weeks. She was supposed to follow-up with pulmonary but has not done this. No mention of a COPD exacerbation in the discharge summary. 06/20/2025: Patient had an echocardiogram with an LVEF 65-70%. Severely enlarged left atrium, mild mitral regurg, mild tricuspid regurg with a PASP of 63. Normal RV size and function. Normal right atrial size. Mild mitral stenosis. Etiology of pulmonary hypertension includes: Idiopathic pulmonary arterial hypertension, pulmonary hypertension with heart failure with preserved LVEF, severe diastolic dysfunction, mitral stenosis, COPD, hypoxic respiratory failure, doubt chronic thromboembolic pulmonary hypertension. Plan: I will obtain V/Q scan of the chest today to assess for chronic thromboembolic pulmonary hypertension. BNP is elevated and chest x-ray with congestion likely related to AFib with RVR. Patient received Lasix 40 IV today. Cardiology is following to optimize her cardiac function and volume status. there is no evidence of COPD exacerbation will continue her maintenance inhalers. She has discontinued tobacco use. Patient was started on sotalol and dose will be decreased due to bradycardia. Later in the day patient had a V/Q scan with no large subsegmental areas of mismatch perfusion mismatch in the right base correlates with x-ray findings overall intermediate study and no evidence of chronic thromboembolic disease. Later in the day patient had a CT chest with bibasilar dependent consolidations with some endobronchial mucus changes consistent with atelectasis or pneumonia, mild apical predominant centrilobular emphysema trace pleural effusions. Later in the day patient had a bubble study which demonstrated a couple of bubbles in the left side after 4-5 seconds suggesting of either a tiny patent foramen ovale or transpulmonary bubbles. 06/21/25: Overall patient has improved with diuretics, management of blood pressure, management of atrial fibrillation with rapid ventricular response. She improved prior to initiation of treatment for possible pneumonia which was started today. Yesterday she was -70 mL, cumulative she is positive 1.2 L since admission. Her weight today is 93.7. Chest x-ray today with minimally improved congestion. Plan: cardiac medications are being managed by coordinate measuring equipment operator and hospitalist team. Currently she is on amlodipine 10, hydrochlorothiazide 12.5, losartan 100 q.day, Imdur 60 q.day, hydralazine 75 p.o. q.i.d. and sotalol 40 q.day. she is on IV heparin and aspirin 81. continued new treatment for hypoxemic respiratory failure, COPD and pneumonia as above. Minimal [id number]-[id number] shunt after 4-5 seconds suggesting intrapulmonary shunt may be contributing to hypoxemic respiratory failure. Last night the patient wore the hospital CPAP 12 with 50% FiO2 and decrease to 40% FiO2 throughout the night. She said the machine was not as comfortable as her home machine but she did get minimal sleep. 06/23/25: cardiac medicines managed by coordinate measuring equipment operator and hospitalist team. Hydralazine has been increased. Plan: Will continue management of COPD, possible pneumonia and obstructive sleep apnea as detailed in the note. Patient wore her home machine with a full face mask with 4 L bleed in and said that the machine felt normal for her. She had an overnight oximetry with recording duration of 7 hours and 1 minutes. Average saturation 87%. Low saturation 85%. Time with saturation less than or equal to 88% was 354 minutes. Oxygen desaturation index 0. (3) Sleep apnea: Qualifiers: Sleep apnea type: unspecified type Qualified Code(s): G47.30 - Sleep apnea, unspecified Code(s): G47.30 - Sleep apnea, unspecified Status: Acute Assessment and Plan: Regarding her obstructive sleep apnea she was diagnosed approximately 10 years ago with a sleep study. She does not remember where this sleep study was performed. She is on CPAP and does not know her settings. She does not wear oxygen with her CPAP. She does not know her DME company. She uses a fullface mask. She says she wears her mask regularly. 06/21/25: Last night the patient was placed on CPAP 10 and pressures were increased to CPAP 16. She says that she wore the mask last night and that these settings felt similar to her home settings. Plan: Patient believes her DME company may be [employer] and we will check with them for a download. I have told her to have her family bring in her CPAP machine so that we can verify her settings. If no verification will continue CPAP 16 as she said that this felt similar to her home settings. 06/22/25: Last night the patient wore the hospital CPAP 12 with 50% FiO2 and decrease to 40% FiO2 throughout the night. She said the machine was not as comfortable as her home machine but she did get minimal sleep. Plan: Patient tells me her family will bring in her home CPAP machine. We will then attempt to identify the company in get a download. If her home machine is brought in she will wear her home machine with 4 L bleed in. 06/23/25: Patient wore her home machine with a full face mask with 4 L bleed in and said that the machine felt normal for her. She had an overnight oximetry with recording duration of 7 hours and 1 minutes. Average saturation 87%. Low saturation 85%. Time with saturation less than or equal to 88% was 354 minutes. Oxygen desaturation index 0. Plan: I will attempt to obtain a download from her DME [employer] [facility]. I will continue her current settings and perform an overnight oximetry with 6 L bleed in. Subjective Date/time seen: 06/23/25 10:10 Interval history: 06/21/2025: This is a new pulmonary consult for COPD and pulmonary hypertension. 75-year-old with a history of coronary artery disease status post stents in 2011, diabetes, hypertension, hyperlipidemia, CKD stage 3 to 4, DENNIS on CPAP for 10 years. Patient was admitted to [facility] with fluid overload and congestive heart failure from 12/26/2024 through 12/30/2024. During that hospitalization she had an echocardiogram on 12/28 that showed grade 3 diastolic dysfunction, moderate mitral regurg, moderate tricuspid regurg with a PASP of 70. LV EF was not stated in the discharge summary. Hydralazine was added to her regimen. ABG during that admission was 7.32/42/59 and the patient was started on BiPAP and moved to the ICU and eventually transitioned to CPAP. She was discharged home on oxygen and she wore this for 2-3 weeks. She was supposed to follow-up with pulmonary but has not done this. No mention of a COPD exacerbation in the discharge summary. Regarding her obstructive sleep apnea she was diagnosed approximately 10 years ago with a sleep study. She does not remember where this sleep study was performed. She is on CPAP and does not know her settings. She does not wear oxygen with her CPAP. She does not know her DME company. She uses a fullface mask. She says she wears her mask regularly. Regarding her COPD the patient tells me she did PFTs at [facility] 4-5 years ago and they told her she had a little bit of COPD. Patient had a CT scan of the chest in our system on 05/10/2020 with very mild apical predominant centrilobular emphysema. Her last CT scan low-dose on 09/13/2024 showed mild apical predominant centrilobular emphysema with no concerning masses or nodules. I have no PFTs. She has been maintained on inhalers. She wears no oxygen at home and a few months ago when she checked her pulse oximetry is 94-95%. Few months ago when she was feeling well she had 2 block limitation in her activity due to leg pain and back pain not dyspnea on exertion. At baseline she has no chronic cough, she produces phlegm 1 to 2 times a day and has no hemoptysis. Patient smoked tobacco from [id number] at half a pack a day for a total of 30 pack years. Patient was exposed to secondhand smoke from her father and after she moved out of her father's house she has lived with smokers all her life. Patient smokes marijuana 2-3 inhalations a day for the last 10 years and quit in May of 2025. Patient denies vaping, illicit drug use. 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 04/14/2025: Patient saw her size stamper she weighed 196 lb. Her creatinine on 04/11/2025 was 1.58. 04/28/2025: Patient followed with her coordinate measuring equipment operator, Dr. Colón, she had 2 block dyspnea on exertion, her room air saturations were 92%. Her weight was 195 lb. Respiratory medicines include trelegy 100, albuterol p.r.n. and Flonase. Current illness started on 06/17 where she had minimal shortness of breath with no cough, fever. She did have slightly more phlegm than usual with no hemoptysis. On 06/18 she noticed that her heart was racing and then her shortness of breath got much worse and she presented to the emergency department on 06/19/2025. She complained of worsening shortness of breath. EMS had given her DuoNebs x2 and Solu-Medrol. In the emergency department her heart rate was irregularly irregular at a heart rate of 157. Blood pressure was 162/73, respirations were 26 and a room air saturations were 94%. She was afebrile. Her lungs were clear to auscultation. Her white blood cell count was 9.6 with 0.6% eosinophils, her creatinine was 2.26, serum bicarb was 20, her chest x-ray showed congestion. Patient was treated for dehydration with 1 L IV fluid, IV diltiazem, IV heparin, ceftriaxone and doxycycline. It was felt she was not having a COPD exacerbation and steroids were discontinued. It was felt that she did not have a infection and her antibiotics were discontinued. 06/20/2025: Patient had an echocardiogram with an LVEF 65-70%. Significant diastolic dysfunction with E/e' 48. Severely enlarged left atrium, mild mitral regurg, mild tricuspid regurg with a PASP of 63. Normal RV size and function. Normal right atrial size. Mild mitral stenosis. 06/21/2025: Patient tells me she is breathing normal today. She denies phlegm or hemoptysis. Her cough is at her baseline. When I enter the room she was on Vapotherm with 45 L and 55% FiO2 with saturations 95%. I changed her to 15 L nasal cannula and sequentially decreased her to 8 L nasal cannula with saturations 91%. She felt better on the nasal cannula. She is afebrile. White blood cell count is 12.3, creatinine is 2.13, BNP is 6060. Free T4 is 1.37. Chest x-ray shows congestion. ABG on 8 L nasal cannula 7.40/35/59. Last night the patient was placed on CPAP 10 and pressures were increased to CPAP 16. She says that she wore the mask last night and that these settings felt similar to her home settings. Later in the day patient had a V/Q scan with no large subsegmental areas of mismatch perfusion mismatch in the right base correlates with x-ray findings overall intermediate study and no evidence of chronic thromboembolic disease. Later in the day patient had a CT chest with bibasilar dependent consolidations with some endobronchial mucus changes consistent with atelectasis or pneumonia, mild apical predominant centrilobular emphysema trace pleural effusions. Later in the day patient had a bubble study which demonstrated a couple of bubbles in the left side after 4-5 seconds suggesting of either a tiny patent foramen ovale or transpulmonary bubbles. 06/22/25: patient tells me she is better today. She states she is 80% back to her normal. She has no rest shortness of breath and has not been out of bed. She has having nose bleeds. She has cough with phlegm. When I enter the room she was on 10 L nasal cannula with saturations 96%. I suppose sequentially decreased her to 5 L and her saturations were 91%. Patient had a fever yesterday at 37.9. White blood cell count 9.4, creatinine 2.23, procalcitonin 0.1.PTT 87.9, yesterday she was -70 mL, cumulative she is positive 1.2 L since admission. Her weight today is 93.7. Chest x-ray today with minimally improved congestion. Last night the patient wore the hospital CPAP 12 with 50% FiO2 and decrease to 40% FiO2 throughout the night. She said the machine was not as comfortable as her home machine but she did get minimal sleep. 06/23/2025: Patient continues to improve. She tells me is breathing normally at rest. She has no dyspnea on exertion walking from the bed to the chair. Her cough is normal. Her phlegm continues but it has improved. Phlegm color is brown. When I enter the room she was on 5 L nasal cannula with saturations 92%. I weaned her to room air and after 11 minutes her saturations were 90%. She is afebrile. White blood cell count 8.5, creatinine 2.15, BUN 64, PTT 176. BNP has improved from 6060 on 06/21/2025 to 3190 today. yesterday she was positive 1 L. Cumulative she is positive 2.9 L. Her weight today is 94 kg. Patient wore her home machine with a full face mask with 4 L bleed in and said that the machine felt normal for her. She had an overnight oximetry with recording duration of 7 hours and 1 minutes. Average saturation 87%. Low saturation 85%. Time with saturation less than or equal to 88% was 354 minutes. Oxygen desaturation index 0. DATA: 06/21/25: EXAMINATION:CT diagnostic chest wo con INDICATION: Hypoxia COMPARISON: July 13, 2025 FINDINGS: Bibasilar consolidations with atelectatic changes have developed right worse than left. Trace bilateral pleural effusions. And the mainstem bronchi, streaky mucoid appearing changes are present. Tracheal air column as trace dependent secretions but no obvious mass. Heart and great vessels appear stable. Extensive coronary artery calcification. 10 mm nodule anterior right midlung image 57 series 4 is stable. Borderline pathologic sized mediastinal lymph nodes not clearly changed. Diffuse degenerative changes in the bones. IMPRESSION: 1. Bibasilar consolidations likely associated with aspiration versus community-acquired pneumonia. Mucoid appearing changes in the bronchi endotracheal air column support aspiration. Findings should be followed radiographically until clear. 2. Other chronic appearing findings. 06/21/25: Bubble study Summary 1. BUBBLE STUDY APPEARS POSITIVE IN BOTH CLIPS TOWARDS END. 2. Limited echocardiogram. 3. Left ventricular chamber dimension is normal. 4. Left ventricular systolic function is normal, estimated at 65-70. 5. The left ventricular diastolic function is indeterminate as it was not assessed. 6. Interatrial septum not well visualized by 2D and agitated saline imaging. 7. Agitated saline injection with and without valsalva maneuver opacified right side cardiac chambers with a couple of bubbles shunt to left side cardiac chambers after 4-5 seconds. This suggests either tiny patent foramen ovale or they are transpulmonary bubbles that made it through. 06/21/25: EXAM/PROCEDURE: NM lung vent and perfusion HISTORY: SOB, CP, afib rvr COMPARISON: Portable chest x-ray same day. RADIOISOTOPE: 22.9 mCi xenon used for the ventilatory portion of today's exam. Perfusion scan was performed using 5.5 mCi technetium 99m microaggregated albumin. FINDINGS: Prominent area of photopenia corresponding to the heart shadow consistent with cardiomegaly. Obscuration of the right lung base on recent radiograph, corresponds to possible segmental size area of mismatch in the right lung base, although findings are complicated due to radiographic findings. IMPRESSION: No compelling or large segmental size areas of mismatch, and with right base findings on today's chest x-ray, the perfusion mismatch in the right base is of uncertain significance. Per PIOPED criteria, this is an indeterminate INTERMEDIATE probability for pulmonary embolus. 06/20/25: Echo Summary 1. Definity contrast administered improved wall motion interpretation. 2. Left ventricular chamber dimension is normal. 3. Left ventricular systolic function is normal, estimated at 65-70. 4. There is moderate concentric increased left ventricular wall thickness. 5. E/e' 48 is significantly elevated. 6. Left atrial chamber dimension is severely enlarged. 7. The mitral valve has moderately calcified leaflets and a moderately calcified annulus. 8. There is mild mitral valve regurgitation. 9. There is mild tricuspid valve regurgitation. 10. Severe pulmonary hypertension, estimated pulmonary arterial systolic pressure is 63 mmHg. 11. Dilated inferior vena cava with >50% collapse upon inspiration consistent with elevated right atrial pressure, 10 mmHg. Right Ventricle Right ventricular chamber dimension is normal. Right ventricular systolic function is normal and with normal TAPSE 2.3 cm. Left Atria Left atrial chamber dimension is severely enlarged. Right Atria Right atrial chamber dimension is normal. Mitral Valve The mitral valve has moderately calcified leaflets and a moderately calcified annulus. There is mild mitral valve stenosis with valve area of 1.9 cm2. There is mild mitral valve regurgitation. 09/13/24: EXAMINATION:CT lung screening INDICATION: Personal history of nicotine dependence. Current smoker with 56 pack year history. COMPARISON: Chest CT 09/10/2023 FINDINGS: There is mild emphysema. There is a 3 mm nodule in right upper lobe. There is a 7 mm nodule at minor fissure without change. Calcified pulmonary nodules and calcified hilar and mediastinal lymph nodes are consistent with old granulomatous disease. There is mild atelectasis bilaterally. No pleural effusion. Cardiomegaly is noted. There are coronary artery calcifications. No pericardial effusion. There are changes of cholecystectomy. There is severe thoracic spondylosis. IMPRESSION: 1. Lung-RADS category 2: Benign appearance or behavior. Continue annual screening with noncontrast low-dose chest CT in 12 months. Review of Systems Constitutional: Constitutional: Reports no additional constitutional complaints Eyes: Eyes: Reports no additional eye complaints ENT: Reports system reviewed and no additional complaints, except as documented Cardiovascular: Cardiovascular: Reports no additional cardiovascular complaints Respiratory: Respiratory: Reports no additional respiratory complaints Gastrointestinal: Gastrointestinal: Reports no additional gastrointestinal complaints Musculoskeletal: Musculoskeletal: Reports no additional musculoskeletal complaints Neurologic: Reports system reviewed and no additional complaints, except as documented Psychiatric: Psychiatric: Reports no additional psychiatric complaints Endocrine: Endocrine: Reports no additional endocrine complaints Hematologic/Lymphatic: Hematologic/Lymphatic: Reports no additional hematologic/lymphatic complaints Allergic/Immunologic: Allergic/Immunologic: Reports no additional allergic/immunologic complaints Exam Const: General: cooperative, healthy appearing and comfortable Orientation/consciousness: oriented to person, oriented to place and oriented to time HENMT: Head: normal to inspection Ears: hearing grossly normal bilaterally Eyes: General: appearance normal, both eyes and all related structures Neck: Neck: normal visual inspection Chest: Chest palpation & inspection: normal inspection of the chest Resp: Effort & Inspection: normal respiratory effort and able to speak in complete sentences Auscultation: crackles, no rales, no rhonchi, no wheezes and lung sounds not diminished Other: Cardio: Jugular venous distension: no JVD GI: Inspection: normal to inspection Skin: General skin exam: normal color Neuro: General: oriented to person, oriented to place and oriented to time Extrem: General: normal to inspection and no edema Psych: Appearance: grossly normal Objective Data Vital Signs Vital Signs: Vital Signs - 24 hr 06/22/25 12:00 06/22/25 12:00 06/22/25 12:00 Temperature 36.6 C Pulse Rate 54 L 62 Respiratory Rate 21 H Blood Pressure 154/47 H Pulse Oximetry 90 90 Oxygen Delivery High Flow Nasal Cannula Oxygen Flow Rate 5 06/22/25 14:00 06/22/25 16:00 06/22/25 16:00 Temperature 36.7 C Pulse Rate 49 L 52 L Respiratory Rate 20 Blood Pressure 147/55 H Pulse Oximetry 92 90 Oxygen Delivery High Flow Nasal Cannula Oxygen Flow Rate 5 06/22/25 16:00 06/22/25 18:00 06/22/25 19:40 Temperature 36.7 C Pulse Rate 49 L 46 L 52 L Respiratory Rate 21 H Blood Pressure 151/46 H Pulse Oximetry 92 Oxygen Delivery Oxygen Flow Rate 06/22/25 20:00 06/22/25 21:39 06/22/25 22:00 Temperature Pulse Rate 47 L 56 L 48 L Respiratory Rate Blood Pressure Pulse Oximetry 90 Oxygen Delivery CPAP Oxygen Flow Rate 06/23/25 00:00 06/23/25 00:21 06/23/25 02:00 Temperature 36.9 C Pulse Rate 45 L 46 L 45 L Respiratory Rate 18 Blood Pressure 150/50 H Pulse Oximetry 93 Oxygen Delivery Oxygen Flow Rate 06/23/25 04:00 06/23/25 04:03 06/23/25 04:30 Temperature 36.9 C Pulse Rate 41 L 46 L 45 L Respiratory Rate 20 Blood Pressure 178/56 H Pulse Oximetry 92 92 Oxygen Delivery CPAP Oxygen Flow Rate 06/23/25 06:00 06/23/25 07:21 06/23/25 07:21 Temperature Pulse Rate 44 L 59 L 59 L Respiratory Rate 18 Blood Pressure Pulse Oximetry 90 Oxygen Delivery High Flow Nasal Cannula Oxygen Flow Rate 5 06/23/25 07:57 06/23/25 08:00 Temperature 36.4 C L Pulse Rate 48 L Respiratory Rate 16 Blood Pressure 195/46 H Pulse Oximetry 93 Oxygen Delivery Nasal Cannula Oxygen Flow Rate 5 Intake/Output Intake/Output: Intake & Output 06/20/25 06/21/25 06/22/25 06/23/25 23:59 23:59 23:59 23:59 Intake Total 721.6 1330.3 1389.2 891.9 Output Total 350 1400 350 250 Balance 371.6 -69.7 1039.2 641.9 Meds/Results Medications: Active Medications Generic Name Dose Route Start Last Admin Trade Name Freq PRN Reason Stop Dose Admin Acetaminophen 1,000 mg 06/19/25 22:44 06/22/25 21:13 Acetaminophen 500 Mg Tablet PO 1,000 mg TID PRN Administration Mild Pain (1-3) or Fever Allopurinol 100 mg 06/23/25 09:00 06/23/25 09:33 Allopurinol 100 Mg Tablet PO 100 mg Q48HR DAVID Administration Amlodipine Besylate 10 mg 06/20/25 09:00 06/23/25 09:33 Amlodipine Besylate 10 Mg Tablet BY MOUTH 10 mg DAILY DAVID Administration Aspirin 81 mg 06/20/25 09:00 06/23/25 09:33 Aspirin 81 Mg Enteric Tablet PO 81 mg DAILY DAVID Administration Atorvastatin Calcium 80 mg 06/20/25 09:55 06/23/25 09:32 Atorvastatin 40 Mg Tablet PO 80 mg DAILY DAVID Administration Clonidine HCl 1 patch 06/23/25 09:00 06/23/25 09:30 Clonidine 0.1 Mg/24 Hr Patch TRANSDERM 1 patch WEEKLY DAVID Administration Dextrose 12.5 gm 06/19/25 21:30 Dextrose 50% 25 Gm/50 Ml Syringe IV PUSH PRN PRN Hypoglycemia Protocol Fluticasone Propionate 1 spray 06/20/25 09:00 06/23/25 09:33 Fluticasone Propionate 0.05% Na Spr 16 Gm Btl (*Bkc) NASAL 1 spray Q12H DAVID Administration Fluticasone/Umeclidinium/Vilanterol 1 puff 06/20/25 09:00 06/23/25 07:18 Fluticasone/Umeclidin/Vilanter 100-62.5-25 Mcg Ellipta INHALATION 1 puff Q24H DAVID Administration Glucose 15 gm 06/19/25 21:30 Glucose Oral Gel 15 Gm Of Glucse In 37.5 Gm Tube PO PRN PRN Hypoglycemia Protocol Guaifenesin 1,200 mg 06/22/25 09:20 06/23/25 09:32 Guaifenesin 12 Hr 600 Mg Tabcr PO 1,200 mg Q12HR DAVID Administration Heparin Sodium (Porcine) 5,500 units 06/19/25 19:03 06/21/25 02:12 Heparin Sodium 5,000 Units/Ml Vial IV PUSH 5,500 units PRN PRN Administration aPTT less than 55 seconds Heparin Sodium (Porcine) 2,500 units 06/19/25 19:03 06/20/25 13:30 Heparin Sodium 5,000 Units/Ml Vial IV PUSH 2,500 units PRN PRN Administration aPTT 55 - 70 seconds Hydralazine HCl 100 mg 06/22/25 17:00 06/23/25 09:32 Hydralazine Hcl 50 Mg Tablet PO 100 mg QID DAVID Administration Hydrochlorothiazide 12.5 mg 06/20/25 09:50 06/23/25 09:33 Hydrochlorothiazide 12.5 Mg Capsule PO 12.5 mg DAILY DAVID Administration Heparin Sodium/Dextrose 25,000 units in 250 mls @ 14 mls/hr 06/19/25 19:05 06/23/25 07:45 Heparin Sodium/D5w 100 Units/Ml IV CONT 1,400 units/hr .[id number] DAVID 14 mls/hr Protocol Titration 1,400 UNITS/HR Dextrose 1,000 mls @ 100 mls/hr 06/19/25 21:30 Dextrose 5% 1,000 Ml IVPB PRN PRN Hypoglycemia Protocol Ceftriaxone Sodium 1 gm/ 50 mls @ 100 mls/hr 06/22/25 09:00 06/23/25 09:33 Sodium Chloride IVPB 100 mls/hr Q24H DAVID Administration Levofloxacin/Dextrose 750 mg in 150 mls @ 100 mls/hr 06/22/25 09:00 06/22/25 10:46 Levaquin 750 Mg/D5w 150 Ml IVPB Infused Q48HR DAVID Infusion Insulin Aspart 2 - 5 units 06/20/25 08:00 06/23/25 07:57 Insulin Aspart (*Bkc) 100 Units/Ml SUB-Q Not Given TIDWM [facility] Protocol Insulin Aspart 1 - 2 units 06/20/25 21:00 06/22/25 21:07 Insulin Aspart (*Bkc) 100 Units/Ml SUB-Q Not Given HS DAVID Protocol Isosorbide Mononitrate 60 mg 06/20/25 09:50 06/23/25 09:33 Isosorbide Mononitrate 60 Mg Tab.Er.24h PO 60 mg DAILY DAVID Administration Levalbuterol HCl 0.63 mg 06/21/25 19:41 06/21/25 20:05 Levalbuterol Neb 1.25 Mg/3 Ml INHALATION 0.63 mg Q6HRT PRN Administration shortness of breath Levothyroxine Sodium 100 mcg 06/21/25 06:30 06/23/25 06:14 Levothyroxine Sodium 100 Mcg Tablet PO 100 mcg DAILY@0630 DAVID Administration Losartan Potassium 100 mg 06/20/25 09:00 06/22/25 09:16 Losartan Potassium 100 Mg Tablet PO 100 mg On Hold: 06/22/25 15:20 DAILY DAVID Administration Perflutren Lipid Microsphere 0 ml 06/21/25 10:46 Perflutren Lipid Microspheres 1.5 Ml Vial Diluted To 10 Ml Total Volume IV PUSH 06/24/25 10:46 ONCE PRN adequate visualization Protocol Sotalol HCl 40 mg 06/21/25 09:00 06/23/25 09:33 Sotalol Hcl 40 Mg Tablet PO 40 mg DAILY DAVID Administration Radiology Results: ITS Impressions Pulmonary Perfusion Imaging 06/21/25 11:25 IMPRESSION: No compelling or large segmental size areas of mismatch, and with right base findings on today's chest x-ray, the perfusion mismatch in the right base is of uncertain significance. Per PIOPED criteria, this is an indeterminate INTERMEDIATE probability for pulmonary embolus. Renal Ultrasound 06/21/25 13:56 IMPRESSION: 1. Normal kidneys without hydronephrosis. Chest CT 06/21/25 14:30 IMPRESSION: 1. Bibasilar consolidations likely associated with aspiration versus community-acquired pneumonia. Mucoid appearing changes in the bronchi endotracheal air column support aspiration. Findings should be followed radiographically until clear. 2. Other chronic appearing findings. Chest X-Ray 06/22/25 07:45 IMPRESSION: 1. Stable to mildly improved appearance of interstitial/vascular markings. Labs Labs: Laboratory Results - last 24 hr 06/22/25 06/22/25 06/22/25 01:18 11:09 11:29 WBC RBC Hgb Hct MCV MCH MCHC RDW Plt Count MPV Immature Gran % (Auto) Neut % (Auto) Lymph % (Auto) [place] % (Auto) Eos % (Auto) Baso % (Auto) Lymph # (Auto) [place] # (Auto) Eos # (Auto) Baso # (Auto) Abs Immat Gran (auto) Absolute Neuts (auto) Absolute Nucleated RBC Nucleated RBC % APTT Sodium Potassium Chloride Carbon Dioxide Anion Gap BUN Creatinine Estim Creat Clear Calc Estimated GFR Glucose POC Capillary Glucose 181 H Calcium Magnesium Total Bilirubin AST ALT Alkaline Phosphatase NT-Pro-B Natriuret Pep Total Protein Albumin [id number] 188 H Nasal MRSA (PCR) Not detected Influenza A (RT-PCR) Negative Influenza B (RT-PCR) Negative RSV (RT-PCR) Negative SARS-CoV-2 RNA (RT-PCR) Negative 06/22/25 06/22/25 06/23/25 16:33 20:25 05:33 WBC RBC Hgb Hct MCV MCH MCHC RDW Plt Count MPV Immature Gran % (Auto) Neut % (Auto) Lymph % (Auto) [place] % (Auto) Eos % (Auto) Baso % (Auto) Lymph # (Auto) [place] # (Auto) Eos # (Auto) Baso # (Auto) Abs Immat Gran (auto) Absolute Neuts (auto) Absolute Nucleated RBC Nucleated RBC % APTT Sodium Potassium Chloride Carbon Dioxide Anion Gap BUN Creatinine Estim Creat Clear Calc Estimated GFR Glucose POC Capillary Glucose 191 H 153 H Calcium Magnesium Total Bilirubin AST ALT Alkaline Phosphatase NT-Pro-B Natriuret Pep 3190 H Total Protein Albumin [id number] Nasal MRSA (PCR) Influenza A (RT-PCR) Influenza B (RT-PCR) RSV (RT-PCR) SARS-CoV-2 RNA (RT-PCR) 06/23/25 06/23/25 05:38 07:23 WBC 8.5 RBC 3.48 L Hgb 11.3 L Hct 34.7 L MCV 99.7 MCH 32.5 MCHC 32.6 RDW 14.1 Plt Count 180 MPV 12.1 H Immature Gran % (Auto) 0.5 Neut % (Auto) 57.0 Lymph % (Auto) 33.1 [place] % (Auto) 6.4 Eos % (Auto) 2.6 Baso % (Auto) 0.4 Lymph # (Auto) 2.81 [place] # (Auto) 0.5 Eos # (Auto) 0.2 Baso # (Auto) 0.0 Abs Immat Gran (auto) 0.04 H Absolute Neuts (auto) 4.9 Absolute Nucleated RBC 0.000 Nucleated RBC % 0.0 APTT 176.6 H* Sodium 131 L Potassium 4.3 Chloride 104 Carbon Dioxide 22 Anion Gap 5 BUN 64 H Creatinine 2.15 H Estim Creat Clear Calc 22 Estimated GFR 22 L Glucose 166 H POC Capillary Glucose 155 H Calcium 8.3 L Magnesium 2.4 H Total Bilirubin 0.6 AST 28 ALT 23 Alkaline Phosphatase 82 NT-Pro-B Natriuret Pep Total Protein 6.0 L Albumin 3.2 L [id number] Nasal MRSA (PCR) Influenza A (RT-PCR) Influenza B (RT-PCR) RSV (RT-PCR) SARS-CoV-2 RNA (RT-PCR)
--- NOTE | 2025-06-23 11:30 | ECG_ITS ---
Test Date: 2025-06-23 11:53:06 Measurements Intervals [place] Rate: 58 P: 39 UT: 156 QRS: 254 QRSD: 154 T: 13 QT: 477 QTc: 472 Interpretive Statements SINUS BRADYCARDIA WITH OCCASIONAL SUPRAVENTRICULAR PREMATURE COMPLEXES RIGHT BUNDLE BRANCH BLOCK [120+ ms QRS DURATION, UPRIGHT V1, 40+ ms S IN I/aVL/V4/V5/V6] Compared to ECG 06/22/2025 11:51:05 Ventricular premature complex(es) no longer present Electronically Signed On 06-23-2025 14:45:33 [employer]IAN [employer]ACH[employer] by Gabriel Brito M.D.
--- NOTE | 2025-06-23 12:28 | P.PNNP_ITS ---
Progress Note: A&P Assessment and Plan (1) Acute kidney injury: Code(s): N17.9 - Acute kidney failure, unspecified Status: Acute Assessment and Plan: * relatively stable * as noted on admission (creatinie 2.26mg/dL) * fluctuating since hospitalization began * possible new baseline or element of CKD progression? (see #2) * several issues playing a role: * CHF exacerbation * Afib with RVR * COPD * hypoxia(?) * diuresis * ARB + HCTZ use prior to admission * other(?) * evaluation to date noted: * renal ultrasound w/o obstruction * urine electrolytes nonprerenal * urine eosinophils negative * noted proteinuria * CPK normal * follow trend of repeat labs and UOP (2) Stage 3b chronic kidney disease: Code(s): N18.32 - Chronic kidney disease, stage 3b Status: Chronic Assessment and Plan: * baseline creatinine seems to run ~ 1.3 - 1.7mg/dl * however, has been as high as 2.0mg/dl * this causes her to fluctuate between CKD state 3b and stage 4 * secondary to hypertension, diabetes vascular disease (CAD + hyperlipidemia), COPD/DENNIS, and age-related change * follows with Jennifer Chairez NP/Dr. Young for CKD management (3) CHF (congestive heart failure): Qualifiers: Heart failure chronicity: unspecified Heart failure type: unspecified Qualified Code(s): I50.9 - Heart failure, unspecified Code(s): I50.9 - Heart failure, unspecified Status: Acute Assessment and Plan: * suggeste by pulmonary vascular congestion on x-ray and exam * no lower extremity edema * reportedly just discharged from [facility] in December 2024 with heart failure (but not sent home on diuretics), * Echo results noted: * left ventricular systolic function is normal, estimated at 65 - 70% * mitral valve has moderately calcified leaflets and a moderately calcified annulus * mild mitral valve regurgitation * mild tricuspid valve regurgitation * severe pulmonary hypertension, estimated pulmonary arterial systolic pressure is 63 mmHg. * follow I/Os, daily weights, and respiratory status (4) Atrial fibrillation with rapid ventricular response: Code(s): I48.91 - Unspecified atrial fibrillation Status: Acute Assessment and Plan: * admission EKG showed AFib with RVR rate 155 * acheived rate control with IV Cardiazem * on heparin gtt * on sotalol (5) COPD (chronic obstructive pulmonary disease): Code(s): J44.9 - Chronic obstructive pulmonary disease, unspecified Status: Acute Assessment and Plan: * Pulmonary following with recommendations noted * on inhalers * supplemental oxygen PRN (6) Pulmonary hypertension: Code(s): I27.20 - Pulmonary hypertension, unspecified Status: Acute Assessment and Plan: * as seen on echocardiogram with RVSP of 63 mmHg * Pulmonology and Cardiology following (7) Hypertension: Qualifiers: Hypertension type: essential hypertension Qualified Code(s): I10 - Essential (primary) hypertension Code(s): I10 - Essential (primary) hypertension Status: Acute Assessment and Plan: * quite erratic control * off ARB due to #1 * titrate hydralazine * change amlodipine to nifedipine * follow trend of hemodynamics (8) Type 2 diabetes mellitus with diabetic chronic kidney disease: Code(s): E11.22 - Type 2 diabetes mellitus with diabetic chronic kidney disease Status: Acute Assessment and Plan: * follow accu-cheks * glycemic control per hospitalist Will continue to follow. L Subjective Date/time seen: 06/23/25 12:28 Interval history: Follow-up for acute kidney injury/acute renal failure on chronic kidney disease. Renal function/creatinine relatively stable but BP remians somewhat high despite current medication regimen; breathing/respiratory status seems stable if not better. Exam 2 Narrative: General: elderly but WD/WN female in NAD Heart: IRRR, normal S1 and S2; no rub Lungs: coarse breath sounds Abdomen: soft, nontender, nondistended, positive bowel sounds Extremities: no cyanosis or clubbing; trace edema Skin: warm and intact Objective Data Vital Signs Vital Signs: Vital Signs Temp Pulse Resp BP Pulse Ox O2 Del Method O2 Flow Rate 06/23/25 12:00 71 95 Nasal Cannula 2 06/23/25 11:54 98.1 F 51 L 16 164/44 H 95 06/23/25 10:13 Nasal Cannula 2 06/23/25 10:00 56 L 06/23/25 08:00 59 L 06/23/25 08:00 95 Nasal Cannula 2 06/23/25 08:00 97.5 F L 48 L 16 195/46 H 93 06/23/25 07:57 Nasal Cannula 5 06/23/25 07:21 59 L 18 06/23/25 07:21 59 L 90 High Flow Nasal Cannula 5 06/23/25 06:00 44 L 06/23/25 04:30 45 L 92 CPAP 06/23/25 04:03 98.5 F 46 L 20 178/56 H 92 06/23/25 04:00 41 L 06/23/25 02:00 45 L 06/23/25 00:21 98.5 F 46 L 18 150/50 H 93 06/23/25 00:00 45 L 06/22/25 22:00 48 L 06/22/25 21:39 56 L 90 CPAP 06/22/25 20:00 47 L 06/22/25 19:40 98.0 F 52 L 21 H 151/46 H 92 Intake/Output Intake/Output: Intake & Output 06/20/25 06/21/25 06/22/25 06/23/25 23:59 23:59 23:59 23:59 Intake Total 721.6 1330.3 1389.2 1279.2 Output Total 350 1400 350 250 Balance 371.6 -69.7 1039.2 1029.2 Meds/Results Medications: Active Medications Generic Name Dose Route Start Last Admin Trade Name Freq PRN Reason Stop Dose Admin Acetaminophen 1,000 mg 06/19/25 22:44 06/22/25 21:13 Acetaminophen 500 Mg Tablet PO 1,000 mg TID PRN Administration Mild Pain (1-3) or Fever Allopurinol 100 mg 06/23/25 09:00 06/23/25 09:33 Allopurinol 100 Mg Tablet PO 100 mg Q48HR DAVID Administration Apixaban 2.5 mg 06/23/25 21:00 Apixaban 2.5 Mg Tablet PO Q12HR DAVID Aspirin 81 mg 06/20/25 09:00 06/23/25 09:33 Aspirin 81 Mg Enteric Tablet PO 81 mg DAILY DAVID Administration Atorvastatin Calcium 80 mg 06/20/25 09:55 06/23/25 09:32 Atorvastatin 40 Mg Tablet PO 80 mg DAILY DAVID Administration Dextrose 12.5 gm 06/19/25 21:30 Dextrose 50% 25 Gm/50 Ml Syringe IV PUSH PRN PRN Hypoglycemia Protocol Fluticasone Propionate 1 spray 06/20/25 09:00 06/23/25 09:33 Fluticasone Propionate 0.05% Na Spr 16 Gm Btl (*Bkc) NASAL 1 spray Q12H DAVID Administration Fluticasone/Umeclidinium/Vilanterol 1 puff 06/20/25 09:00 06/23/25 07:18 Fluticasone/Umeclidin/Vilanter 100-62.5-25 Mcg Ellipta INHALATION 1 puff Q24H DAVID Administration Glucose 15 gm 06/19/25 21:30 Glucose Oral Gel 15 Gm Of Glucse In 37.5 Gm Tube PO PRN PRN Hypoglycemia Protocol Guaifenesin 1,200 mg 06/22/25 09:20 06/23/25 09:32 Guaifenesin 12 Hr 600 Mg Tabcr PO 1,200 mg Q12HR DAVID Administration Heparin Sodium (Porcine) 5,500 units 06/19/25 19:03 06/21/25 02:12 Heparin Sodium 5,000 Units/Ml Vial IV PUSH 06/23/25 20:00 5,500 units PRN PRN Administration aPTT less than 55 seconds Heparin Sodium (Porcine) 2,500 units 06/19/25 19:03 06/20/25 13:30 Heparin Sodium 5,000 Units/Ml Vial IV PUSH 06/23/25 20:00 2,500 units PRN PRN Administration aPTT 55 - 70 seconds Hydralazine HCl 100 mg 06/22/25 17:00 06/23/25 17:07 Hydralazine Hcl 50 Mg Tablet PO 100 mg QID DAVID Administration Hydrochlorothiazide 12.5 mg 06/20/25 09:50 06/23/25 09:33 Hydrochlorothiazide 12.5 Mg Capsule PO 12.5 mg DAILY DAVID Administration Heparin Sodium/Dextrose 25,000 units in 250 mls @ 14 mls/hr 06/19/25 19:05 06/23/25 14:42 Heparin Sodium/D5w 100 Units/Ml IV CONT 06/23/25 20:00 1,400 units/hr .[id number] DAVID 14 mls/hr Protocol Titration 1,400 UNITS/HR Dextrose 1,000 mls @ 100 mls/hr 06/19/25 21:30 Dextrose 5% 1,000 Ml IVPB PRN PRN Hypoglycemia Protocol Ceftriaxone Sodium 1 gm/ 50 mls @ 100 mls/hr 06/22/25 09:00 06/23/25 10:03 Sodium Chloride IVPB Infused Q24H DAVID Infusion Levofloxacin/Dextrose 750 mg in 150 mls @ 100 mls/hr 06/22/25 09:00 06/22/25 10:46 Levaquin 750 Mg/D5w 150 Ml IVPB Infused Q48HR DAVID Infusion Insulin Aspart 2 - 5 units 06/20/25 08:00 06/23/25 17:07 Insulin Aspart (*Bkc) 100 Units/Ml SUB-Q 2 units TIDWM DAVID Administration Protocol Insulin Aspart 1 - 2 units 06/20/25 21:00 06/22/25 21:07 Insulin Aspart (*Bkc) 100 Units/Ml SUB-Q Not Given HS DAVID Protocol Isosorbide Mononitrate 60 mg 06/20/25 09:50 06/23/25 09:33 Isosorbide Mononitrate 60 Mg Tab.Er.24h PO 60 mg DAILY DAVID Administration Levalbuterol HCl 0.63 mg 06/21/25 19:41 06/21/25 20:05 Levalbuterol Neb 1.25 Mg/3 Ml INHALATION 0.63 mg Q6HRT PRN Administration shortness of breath Levothyroxine Sodium 100 mcg 06/21/25 06:30 06/23/25 06:14 Levothyroxine Sodium 100 Mcg Tablet PO 100 mcg DAILY@0630 DAVID Administration Losartan Potassium 100 mg 06/20/25 09:00 06/22/25 09:16 Losartan Potassium 100 Mg Tablet PO 100 mg On Hold: 06/22/25 15:20 DAILY DAVID Administration Nifedipine 30 mg 06/24/25 09:00 Nifedipine 30 Mg Tab.Er.24 PO QAM [facility] Perflutren Lipid Microsphere 0 ml 06/21/25 10:46 Perflutren Lipid Microspheres 1.5 Ml Vial Diluted To 10 Ml Total Volume IV PUSH 06/24/25 10:46 ONCE PRN adequate visualization Protocol Sotalol HCl 40 mg 06/21/25 09:00 06/23/25 09:33 Sotalol Hcl 40 Mg Tablet PO 40 mg DAILY DAVID Administration Radiology Results: ITS Impressions Pulmonary Perfusion Imaging 06/21/25 11:25 IMPRESSION: No compelling or large segmental size areas of mismatch, and with right base findings on today's chest x-ray, the perfusion mismatch in the right base is of uncertain significance. Per PIOPED criteria, this is an indeterminate INTERMEDIATE probability for pulmonary embolus. Renal Ultrasound 06/21/25 13:56 IMPRESSION: 1. Normal kidneys without hydronephrosis. Chest CT 06/21/25 14:30 IMPRESSION: 1. Bibasilar consolidations likely associated with aspiration versus community- acquired pneumonia. Mucoid appearing changes in the bronchi endotracheal air column support aspiration. Findings should be followed radiographically until clear. 2. Other chronic appearing findings. Chest X-Ray 06/22/25 07:45 IMPRESSION: 1. Stable to mildly improved appearance of interstitial/vascular markings. Labs Labs: Laboratory Tests 06/23/25 05:38 06/23/25 05:38 Calcium 8.3 L Magnesium 2.4 H Total Bilirubin 0.6 AST 28 ALT 23 Alkaline Phosphatase 82 NT-Pro-B Natriuret Pep Total Protein 6.0 L Albumin 3.2 L
[2025-06-23 14:00] LABS: Partial Thromboplastin Time 81.2 Seconds (22.3-36.8)
[2025-06-23] MEDS: INSULIN ASPART (*BKC) 100 UNITS/ML SUB-Q ×2 (17:07→21:12)
[2025-06-23 18:08] LABS: ANA by IFA Rfx Titer/Pattern Negative (.)
[2025-06-23] MEDS: APIXABAN 2.5 MG TABLET PO (21:12)
[2025-06-24] VITALS (26 sets, daily range): BP systolic 182–208; BP diastolic 32–57; PULSE 45–90; RESP 14–26; TEMP 36.6–36.9; O2SAT 87–98
[2025-06-24] MEDS: LEVOTHYROXINE SODIUM 100 MCG TABLET PO (06:14)
[2025-06-24 06:21] LABS: Hematocrit 34.3 % (37.0-47.0); Hemoglobin 11.0 g/dL (12.0-15.0); Immature Granulocyte Percent A 0.5 % (0-0.5); Lymphocytes Absolute Auto 2.18 K/mm3 (0.9-3.2); Mean Corpuscular HGB Conc 32.1 g/dl (32-36); Mean Corpuscular Hemoglobin 32.2 pg (26-34); Mean Corpuscular Volume 100.3 fl (80-100); Nucleated Red Blood Cells Absolute Auto 0.000 K/mm3 (0.0-0.012); Nucleated Red Blood Cells Perc 0.0 % (0.0-0.2); Platelet Count Result 165 k/mm3 (150-375); Red Blood Count 3.42 M/mm3 (4.2-5.4); White Blood Count 8.4 K/mm3 (4.5-10.0)
[2025-06-24 06:44] LABS: Alanine Aminotransferase 24 U/L (6-35); Albumin Level 3.0 g/dL (3.5-5.1); Alkaline Phosphatase 80 U/L (38-126); Anion Gap 4 mmol/L (4-12); Aspartate Amino Transferase 30 U/L (14-36); Bilirubin,Total 0.5 mg/dL (0.2-1.3); Blood Urea Nitrogen 65 mg/dL (7-17); Calcium 8.7 mg/dL (8.4-10.2); Carbon Dioxide 23 mmol/L (22-30); Chloride 104 mmol/L (98-107); Creatine Kinase 43 U/L (30-135); Estimated CRCL calculation 21 ml/min; Estimated Glomerular Filt Rate 21; Glucose 140 mg/dL (65-110); Magnesium 2.5 mg/dL (1.6-2.3); Potassium 4.2 mmol/L (3.4-5.0); Sodium 131 mmol/L (137-145); Total Protein 5.8 g/dL (6.3-8.2)
--- NOTE | 2025-06-24 07:07 | P.PNIM_ITS ---
Progress Note: A&P Assessment and Plan (1) CHF (congestive heart failure): Qualifiers: Heart failure chronicity: unspecified Heart failure type: unspecified Qualified Code(s): I50.9 - Heart failure, unspecified Code(s): I50.9 - Heart failure, unspecified Status: Acute Assessment and Plan: Pulmonary vascular congestion on x-ray/auscultation of lungs. No lower extremity edema. Reports she was discharged from [facility] in December 2024 with heart failure but not sent home on diuretics. Patient did receive 1 L normal saline bolus in the ER, -admitted with AFib with RVR is controlled we will monitor. Continue heparin gtt. - Daily weights, strict intake/output. -Pt diagnosed with CHF December 2024 with no new meds. -06/21: V/Q scan showed intermediate probability for PE -06/21: overnight patient had increased oxygen requirements, currently on 8 L nasal cannula -06/21: Chest x-ray showed pulmonary vascular congestion, will give Lasix - patient may have HFpEF since she has diastolic dysfunction as seen on echocardiogram is under which could be related to her systemic hypertension and pulmonary hypertension 06/23: Adjusted oral antihypertensive medication. Holding losartan due to DEBBIE on CKD. Increase hydralazine from 75 mg 100 mg qid.. Added nifedipine 30 mg p.o. q.d.. Will continue hydrochlorothiazide 12.5 mg p.o. q.d. and isosorbide mononitrate 60 mg p.o. q.d. and sotalol 40 mg p.o. q.d. 06/20/25: Echocardiogram Summary 1. Definity contrast administered improved wall motion interpretation. 2. Left ventricular chamber dimension is normal. 3. Left ventricular systolic function is normal, estimated at 65-70. 4. There is moderate concentric increased left ventricular wall thickness. 5. E/e' 48 is significantly elevated. 6. Left atrial chamber dimension is severely enlarged. 7. The mitral valve has moderately calcified leaflets and a moderately calcified annulus. 8. There is mild mitral valve regurgitation. 9. There is mild tricuspid valve regurgitation. 10. Severe pulmonary hypertension, estimated pulmonary arterial systolic pressure is 63 mmHg. 11. Dilated inferior vena cava with >50% collapse upon inspiration consistent with elevated right atrial pressure, 10 mmHg. (2) Atrial fibrillation with rapid ventricular response: Code(s): I48.91 - Unspecified atrial fibrillation Status: Acute Assessment and Plan: ED EKG showed AFib with RVR rate 155, patient received Cardizem 15 mg IV x1, with subsequent rate control an EKG demonstrating AFib. Shortness of breath resolved. Currently AFib with controlled rate. Stop the heparin and started Eliquis -appreciate cardiology evaluation recommendation -06/20: started on sotalol b.i.d. which has been decreased to once daily due to bradycardia (on 06/21) -TSH within normal limits, -magnesium and potassium levels within normal limits -continue IMU status -started patient on Eliquis -echocardiogram as above (3) DEBBIE (acute kidney injury): Code(s): N17.9 - Acute kidney failure, unspecified Status: Acute Assessment and Plan: Now that her AFib with RVR is controlled we will monitor. Daily weights, strict intake/output. -1L given in ED, pt with CHF hx (new December 2024) -DEBBIE could be related to elevated blood pressure, CHF, atrial fibrillation 06/20: Creatinine baseline seems to be around 1.3-1.6, -creatinine gradually improving -continue blood pressure medications -will consult Nephrology (4) Chronic kidney disease, stage 3b: Code(s): N18.32 - Chronic kidney disease, stage 3b Status: Acute Assessment and Plan: Holding losartan Increasing hydralazine from 75 mg to 100 q.i.d. Holding losartan due to DEBBIE on CKD. Increase hydralazine from 75 mg 100 mg qid.. Added nifedipine 30 mg p.o. q.d.. Will continue hydrochlorothiazide 12.5 mg p.o. q.d. and isosorbide mononitrate 60 mg p.o. q.d. and sotalol 40 mg p.o. q.d. (5) COPD (chronic obstructive pulmonary disease): Code(s): J44.9 - Chronic obstructive pulmonary disease, unspecified Status: Acute Assessment and Plan: Mild COPD exacerbation, her symptoms could have been related to AFib and pulmonary vascular congestion. received Solu-Medrol with EMS. Restart CAREER DEVELOPMENT MANAGER controller medications. 06/20: Pt with clear lungs today -Steroids given in ED, if wheezing continues, may give additional steroids. -06/21: Increasing oxygen requirements. - Appreciate pulmonology evaluation -patient with HFpEF, possible COPD, possible PE as V/Q scan on 06/21 showed intermediate probability -continue anticoagulation -continue Trelegy per pulmonology (6) CAD (coronary artery disease): Qualifiers: Associated angina: unspecified whether angina present Coronary Disease- Associated Artery/Lesion type: unspecified vessel or lesion type [place] vs. transplanted heart: unspecified whether [place] or transplanted heart Qualified Code(s): I25.10 - Atherosclerotic heart disease of [place] coronary artery without angina pectoris Code(s): I25.10 - Atherosclerotic heart disease of [place] coronary artery without angina pectoris Status: Acute Assessment and Plan: 06/20: S/p stents. Resume CAREER DEVELOPMENT MANAGER aspirin and atorvastatin. (7) Type 2 diabetes mellitus with diabetic chronic kidney disease: Code(s): E11.22 - Type 2 diabetes mellitus with diabetic chronic kidney disease Status: Acute Assessment and Plan: Accu-Cheks ACHS with low-dose insulin sliding scale and hypoglycemia protocol. (8) Hypertension: Qualifiers: Hypertension type: essential hypertension Qualified Code(s): I10 - Essential (primary) hypertension Code(s): I10 - Essential (primary) hypertension Status: Acute Assessment and Plan: Acute on chronic. CAREER DEVELOPMENT MANAGER antihypertensives once med rec entered. Patient does state that her blood pressures are normally in the 160s to 180s range -increase hydralazine 75 mg Q i.d. to 100 mg q.i.d. -Continue to monitor -continue isosorbide 60 mg p.o. q.d., nifedipine 30 mg p.o. q.d., sotalol 40 mg p.o. q.d. -if blood pressure not on target will discuss with Nephrology and possibly increased isosorbide or nifedipine (9) Pulmonary hypertension: Code(s): I27.20 - Pulmonary hypertension, unspecified Status: Acute Assessment and Plan: Severe pulmonary hypertension as seen on echocardiogram with RVSP of 63 mmHg -pulmonology and cardiology following the patient Plan DVT prophylaxis: Heparin infusion Stress ulcer prophylaxis: Not indicated Nutrition: Diabetic and heart healthy diet Code Status: DNR Subjective Date/time seen: 06/24/25 07:07 Interval history: 06/23:Currently holding losartan. Yesterday increased hydralazine 75 mg q.i.d. to 100 mg q.i.d.. Patient remains hypertensive. Patient creatinine improved. Added nifedipine 06/24: Patient has multiple medications for hypertension. Patient has a high blood pressure but usually goes down after medication. Ordered renal artery ultrasound to rule out stenosis. From pulmonary perspective patient is currently doing well Review of Systems Review of Systems: All systems reviewed & are unremarkable except as noted in HPI and below Exam Narrative: General: Pleasant female, having some shortness of breath HEENT:? Pupils equal reactive, sclera is clear, moist oral mucosa Neck:? Supple Respiratory:? Coarse breath sounds bilaterally, decreased at bases, no wheezing Cardiac:? Is irregularly irregular, rate controlled/bradycardia Abdomen:? Soft, nontender, nondistended, protuberant, normoactive bowel sounds Extremities:? Extremities are warm, no cyanosis, no edema Neuro:? Patient is awake, alert, oriented, nonfocal, follows simple commands and answers questions appropriately Skin:? No lesions noted Psych:? Normal mentation and affect Const: General: comfortable and no acute distress Other: A&O x4, obese HENMT: Mouth: Yes moist mucous membranes Eyes: General: appearance normal, both eyes and all related structures Sclera: sclerae normal Pupils: Equal, round and reactive pupils present Neck: Neck: supple Carotids: no bruits Resp: Effort & Inspection: normal respiratory effort Other: Diminished lung sounds, no wheezes present. Tachypneic initially, resolved Cardio: Rate: regular rate Rhythm: regular rhythm and abnormal rhythm Other: Tele: 61bpm GI: Inspection: non-distended Auscultation: normal bowel sounds : General: Yes bladder normal to palpation Bimanual exam- vagina & uterus: bladder normal to palpation Skin: General skin exam: normal color and no rashes or lesions noted Neuro: Cranial nerves: Yes Equal, round and reactive pupils present Motor exam (neuro): 5/5 motor strength present throughout and Normal motor muscle tone present throughout Sensory Exam: normal sensation Extrem: General: no edema Psych: Mental Status: mental status grossly normal Affect: normal affect Objective Data Vital Signs Vital Signs: Vital Signs - 24 hr 06/23/25 07:21 06/23/25 07:21 06/23/25 07:57 Temperature Pulse Rate 59 L 59 L Respiratory Rate 18 Blood Pressure Pulse Oximetry 90 Oxygen Delivery High Flow Nasal Cannula Nasal Cannula Oxygen Flow Rate 5 5 06/23/25 08:00 06/23/25 08:00 06/23/25 08:00 Temperature 97.5 F L Pulse Rate 48 L 59 L Respiratory Rate 16 Blood Pressure 195/46 H Pulse Oximetry 93 95 Oxygen Delivery Nasal Cannula Oxygen Flow Rate 2 06/23/25 10:00 06/23/25 10:13 06/23/25 11:54 Temperature 98.1 F Pulse Rate 56 L 51 L Respiratory Rate 16 Blood Pressure 164/44 H Pulse Oximetry 95 Oxygen Delivery Nasal Cannula Oxygen Flow Rate 2 06/23/25 12:00 06/23/25 12:00 06/23/25 14:00 Temperature Pulse Rate 71 53 L Respiratory Rate Blood Pressure Pulse Oximetry 95 Oxygen Delivery Nasal Cannula Oxygen Flow Rate 2 06/23/25 16:00 06/23/25 16:00 06/23/25 16:00 Temperature 98.0 F Pulse Rate 57 L 51 L Respiratory Rate 20 Blood Pressure 164/43 H Pulse Oximetry 91 91 Oxygen Delivery Nasal Cannula Oxygen Flow Rate 2 06/23/25 20:00 06/23/25 20:00 06/23/25 20:41 Temperature 98.7 F Pulse Rate 54 L 61 57 L Respiratory Rate 20 Blood Pressure 168/43 H Pulse Oximetry 94 91 Oxygen Delivery High Flow Nasal Cannula Oxygen Flow Rate 2 06/23/25 22:00 06/23/25 22:53 06/23/25 22:53 Temperature Pulse Rate 55 L 60 60 Respiratory Rate Blood Pressure Pulse Oximetry 92 92 Oxygen Delivery CPAP CPAP Oxygen Flow Rate 6 06/23/25 23:46 06/24/25 00:00 06/24/25 02:00 Temperature 99.2 F Pulse Rate 55 L 52 L 49 L Respiratory Rate 20 Blood Pressure 148/40 H Pulse Oximetry 92 Oxygen Delivery Oxygen Flow Rate 06/24/25 03:45 06/24/25 04:00 06/24/25 06:00 Temperature 97.8 F Pulse Rate 49 L 45 L 45 L Respiratory Rate 20 Blood Pressure 182/42 H Pulse Oximetry 91 Oxygen Delivery Oxygen Flow Rate Intake/Output Intake/Output: Intake & Output 06/21/25 06/22/25 06/23/25 06/24/25 23:59 23:59 23:59 23:59 Intake Total 1330.3 1389.2 2110.0 340 Output Total 8491 668 0937 Balance -69.7 1039.2 1060.0 340 Meds/Results Medications: Active Medications Generic Name Dose Route Start Last Admin Trade Name Freq PRN Reason Stop Dose Admin Acetaminophen 1,000 mg 06/19/25 22:44 06/22/25 21:13 Acetaminophen 500 Mg Tablet PO 1,000 mg TID PRN Administration Mild Pain (1-3) or Fever Allopurinol 100 mg 06/23/25 09:00 06/23/25 09:33 Allopurinol 100 Mg Tablet PO 100 mg Q48HR DAVID Administration Apixaban 2.5 mg 06/23/25 21:00 06/23/25 21:12 Apixaban 2.5 Mg Tablet PO 2.5 mg Q12HR DAVID Administration Aspirin 81 mg 06/20/25 09:00 06/23/25 09:33 Aspirin 81 Mg Enteric Tablet PO 81 mg DAILY DAVID Administration Atorvastatin Calcium 80 mg 06/20/25 09:55 06/23/25 09:32 Atorvastatin 40 Mg Tablet PO 80 mg DAILY DAVID Administration Dextrose 12.5 gm 06/19/25 21:30 Dextrose 50% 25 Gm/50 Ml Syringe IV PUSH PRN PRN Hypoglycemia Protocol Fluticasone Propionate 1 spray 06/20/25 09:00 06/23/25 21:12 Fluticasone Propionate 0.05% Na Spr 16 Gm Btl (*Bkc) NASAL 1 spray Q12H DAVID Administration Fluticasone/Umeclidinium/Vilanterol 1 puff 06/20/25 09:00 06/23/25 07:18 Fluticasone/Umeclidin/Vilanter 100-62.5-25 Mcg Ellipta INHALATION 1 puff Q24H DAVID Administration Glucose 15 gm 06/19/25 21:30 Glucose Oral Gel 15 Gm Of Glucse In 37.5 Gm Tube PO PRN PRN Hypoglycemia Protocol Guaifenesin 1,200 mg 06/22/25 09:20 06/23/25 21:12 Guaifenesin 12 Hr 600 Mg Tabcr PO 1,200 mg Q12HR DAVID Administration Hydralazine HCl 100 mg 06/22/25 17:00 06/23/25 21:12 Hydralazine Hcl 50 Mg Tablet PO 100 mg QID DAVID Administration Hydrochlorothiazide 12.5 mg 06/20/25 09:50 06/23/25 09:33 Hydrochlorothiazide 12.5 Mg Capsule PO 12.5 mg DAILY DAVID Administration Dextrose 1,000 mls @ 100 mls/hr 06/19/25 21:30 Dextrose 5% 1,000 Ml IVPB PRN PRN Hypoglycemia Protocol Ceftriaxone Sodium 1 gm/ 50 mls @ 100 mls/hr 06/22/25 09:00 06/23/25 10:03 Sodium Chloride IVPB Infused Q24H DAVID Infusion Levofloxacin/Dextrose 750 mg in 150 mls @ 100 mls/hr 06/22/25 09:00 06/22/25 10:46 Levaquin 750 Mg/D5w 150 Ml IVPB Infused Q48HR DAVID Infusion Insulin Aspart 2 - 5 units 06/20/25 08:00 06/23/25 17:07 Insulin Aspart (*Bkc) 100 Units/Ml SUB-Q 2 units TIDWM DAVID Administration Protocol Insulin Aspart 1 - 2 units 06/20/25 21:00 06/23/25 21:12 Insulin Aspart (*Bkc) 100 Units/Ml SUB-Q 1 units HS DAVID Administration Protocol Isosorbide Mononitrate 60 mg 06/20/25 09:50 06/23/25 09:33 Isosorbide Mononitrate 60 Mg Tab.Er.24h PO 60 mg DAILY DAVID Administration Levalbuterol HCl 0.63 mg 06/21/25 19:41 06/21/25 20:05 Levalbuterol Neb 1.25 Mg/3 Ml INHALATION 0.63 mg Q6HRT PRN Administration shortness of breath Levothyroxine Sodium 100 mcg 06/21/25 06:30 06/24/25 06:14 Levothyroxine Sodium 100 Mcg Tablet PO 100 mcg DAILY@0630 DAVID Administration Losartan Potassium 100 mg 06/20/25 09:00 06/22/25 09:16 Losartan Potassium 100 Mg Tablet PO 100 mg On Hold: 06/22/25 15:20 DAILY DAVID Administration Nifedipine 30 mg 06/24/25 09:00 Nifedipine 30 Mg Tab.Er.24 PO QAM DAVID Perflutren Lipid Microsphere 0 ml 06/21/25 10:46 Perflutren Lipid Microspheres 1.5 Ml Vial Diluted To 10 Ml Total Volume IV PUSH 06/24/25 10:46 ONCE PRN adequate visualization Protocol Sotalol HCl 40 mg 06/21/25 09:00 06/23/25 09:33 Sotalol Hcl 40 Mg Tablet PO 40 mg DAILY DAVID Administration Radiology Results: ITS Impressions Pulmonary Perfusion Imaging 06/21/25 11:25 IMPRESSION: No compelling or large segmental size areas of mismatch, and with right base findings on today's chest x-ray, the perfusion mismatch in the right base is of uncertain significance. Per PIOPED criteria, this is an indeterminate INTERMEDIATE probability for pulmonary embolus. Renal Ultrasound 06/21/25 13:56 IMPRESSION: 1. Normal kidneys without hydronephrosis. Chest CT 06/21/25 14:30 IMPRESSION: 1. Bibasilar consolidations likely associated with aspiration versus community- acquired pneumonia. Mucoid appearing changes in the bronchi endotracheal air column support aspiration. Findings should be followed radiographically until clear. 2. Other chronic appearing findings. Chest X-Ray 06/22/25 07:45 IMPRESSION: 1. Stable to mildly improved appearance of interstitial/vascular markings. Labs Labs: Laboratory Results - last 24 hr 06/22/25 06/22/25 06/23/25 01:18 11:29 05:33 WBC RBC Hgb Hct MCV MCH MCHC RDW Plt Count MPV Immature Gran % (Auto) Neut % (Auto) Lymph % (Auto) [place] % (Auto) Eos % (Auto) Baso % (Auto) Lymph # (Auto) [place] # (Auto) Eos # (Auto) Baso # (Auto) Abs Immat Gran (auto) Absolute Neuts (auto) Absolute Nucleated RBC Nucleated RBC % APTT Sodium Potassium Chloride Carbon Dioxide Anion Gap BUN Creatinine Estim Creat Clear Calc Estimated GFR Glucose POC Capillary Glucose Calcium Magnesium Total Bilirubin AST ALT Alkaline Phosphatase Total Creatine Kinase NT-Pro-B Natriuret Pep 3190 H Total Protein Albumin Dqctk-[id number] 188 H GAL[place] Screen Negative Chlamy pneumoniae PCR Not detected Adenovirus (PCR) Not detected B. pertussis DNA (PCR) Not detected B.parapertussis DNA PCR Not detected Coronavirus OC43 (PCR) Not detected Coronavirus HKU1 (PCR) Not detected Coronavirus 229E (PCR) Not detected Coronavirus NL63 (PCR) Not detected Human Metapneumovir PCR Not detected Influenza A (H1) PCR Not detected Influ A (H1/09) PCR Not detected Influenza A (H3) PCR Not detected Influenza Type A (PCR) Not detected Influenza Type B (PCR) Not detected M.pneumoniae IgM Titer <770 M. pneumoniae (PCR) Not detected Parainfluenza 1 (PCR) Not detected Parainfluenza 2 (PCR) Not detected Parainfluenza 3 (PCR) Not detected Parainfluenza 4 (PCR) Not detected RSV (PCR) Not detected Entero/Rhino (PCR) Not detected SARS-CoV-2 (PCR) Not detected 06/23/25 06/23/25 06/23/25 07:23 11:42 13:32 WBC RBC Hgb Hct MCV MCH MCHC RDW Plt Count MPV Immature Gran % (Auto) Neut % (Auto) Lymph % (Auto) [place] % (Auto) Eos % (Auto) Baso % (Auto) Lymph # (Auto) [place] # (Auto) Eos # (Auto) Baso # (Auto) Abs Immat Gran (auto) Absolute Neuts (auto) Absolute Nucleated RBC Nucleated RBC % APTT 81.2 H Sodium Potassium Chloride Carbon Dioxide Anion Gap BUN Creatinine Estim Creat Clear Calc Estimated GFR Glucose POC Capillary Glucose 155 H 199 H Calcium Magnesium Total Bilirubin AST ALT Alkaline Phosphatase Total Creatine Kinase NT-Pro-B Natriuret Pep Total Protein Albumin Gioel-3-Sgoiwdushkm [place] Screen Chlamy pneumoniae PCR Adenovirus (PCR) B. pertussis DNA (PCR) B.parapertussis DNA PCR Coronavirus OC43 (PCR) Coronavirus HKU1 (PCR) Coronavirus 229E (PCR) Coronavirus NL63 (PCR) Human Metapneumovir PCR Influenza A (H1) PCR Influ A (H1) PCR Influenza A (H3) PCR Influenza Type A (PCR) Influenza Type B (PCR) M.pneumoniae IgM Titer M. pneumoniae (PCR) Parainfluenza 1 (PCR) Parainfluenza 2 (PCR) Parainfluenza 3 (PCR) Parainfluenza 4 (PCR) RSV (PCR) Entero/Rhino (PCR) SARS-CoV-2 (PCR) 06/23/25 06/23/25 06/24/25 15:44 20:03 05:47 WBC 8.4 RBC 3.42 L Hgb 11.0 L Hct 34.3 L MCV 100.3 H MCH 32.2 MCHC 32.1 RDW 14.2 Plt Count 165 MPV 11.6 H Immature Gran % (Auto) 0.5 Neut % (Auto) 64.1 Lymph % (Auto) 26.0 [place] % (Auto) 6.7 Eos % (Auto) 2.3 Baso % (Auto) 0.4 Lymph # (Auto) 2.18 [place] # (Auto) 0.6 Eos # (Auto) 0.2 Baso # (Auto) 0.0 Abs Immat Gran (auto) 0.04 H Absolute Neuts (auto) 5.4 Absolute Nucleated RBC 0.000 Nucleated RBC % 0.0 APTT Sodium 131 L Potassium 4.2 Chloride 104 Carbon Dioxide 23 Anion Gap 4 BUN 65 H Creatinine 2.23 H Estim Creat Clear Calc 21 Estimated GFR 21 L Glucose 140 H POC Capillary Glucose 207 H 267 H Calcium 8.7 Magnesium 2.5 H Total Bilirubin 0.5 AST 30 ALT 24 Alkaline Phosphatase 80 Total Creatine Kinase 43 NT-Pro-B Natriuret Pep Total Protein 5.8 L Albumin 3.0 L Kdjqx-6-Nmnvuavppmx G[place]INA Screen Chlamy pneumoniae PCR Adenovirus (PCR) B. pertussis DNA (PCR) B.parapertussis DNA PCR Coronavirus OC43 (PCR) Coronavirus HKU1 (PCR) Coronavirus 229E (PCR) Coronavirus NL63 (PCR) Human Metapneumovir PCR Influenza A (H1) PCR Influ A (H1/09) PCR Influenza A (H3) PCR Influenza Type A (PCR) Influenza Type B (PCR) M.pneumoniae IgM Titer M. pneumoniae (PCR) Parainfluenza 1 (PCR) Parainfluenza 2 (PCR) Parainfluenza 3 (PCR) Parainfluenza 4 (PCR) RSV (PCR) Entero/Rhino (PCR) SARS-CoV-2 (PCR) Quality VTE Prophylaxis VTE prophylaxis: pharmacologic ordered (Heparin gtt) Hospitalist MIPS Advance Care Plan I have confirmed that the patient's Advanced Care Plan is present, code status is documented, or surrogate decision maker is listed in patient medical record.: Yes Medication Reconciliation I have utilized all available resources to obtain, update and review the patients current medications (includes all prescriptions, OTC, herbals, cannabis, and nutritional supplements).: Yes
[2025-06-24] MEDS: FLUTICASONE/UMECLIDIN/VILANTER 100-62.5-25 MCG ELLIPTA 1 PUFF INHALATION (07:44)
[2025-06-24] MEDS: guaiFENesin 12 HR 600 MG TABCR 1200 MG PO ×2 (08:38→20:19)
[2025-06-24] MEDS: ATORVASTATIN 40 MG TABLET 80 MG PO (08:38)
[2025-06-24] MEDS: cefTRIAXone 1 GM in SODIUM CHLORIDE 0.9% IV 50 ML 100 ML IVPB (08:38)
[2025-06-24] MEDS: ASPIRIN 81 MG ENTERIC TABLET PO (08:40)
[2025-06-24] MEDS: FLUTICASONE PROPIONATE 0.05% NA SPR 16 GM BTL (*BKC) 1 SPRAY NASAL ×2 (08:40→20:19)
[2025-06-24] MEDS: APIXABAN 2.5 MG TABLET PO ×2 (08:40→20:19)
[2025-06-24] MEDS: levoFLOXacin 750 MG/D5W 150 ML 750 MG/150 ML BAG 100 MG IVPB (08:40)
[2025-06-24] MEDS: ISOSORBIDE MONONITRATE 60 MG TAB.ER.24H PO (08:41)
--- NOTE | 2025-06-24 10:53 | P.PNPL_ITS ---
Progress Note: A&P Assessment and Plan (1) COPD (chronic obstructive pulmonary disease): Code(s): J44.9 - Chronic obstructive pulmonary disease, unspecified Status: Acute Assessment and Plan: Regarding her COPD the patient tells me she did PFTs at [facility] 4-5 years ago and they told her she had a little bit of COPD. Patient had a CT scan of the chest in our system on 05/10/2020 with very mild apical predominant centrilobular emphysema. Her last CT scan low-dose on 09/13/2024 showed mild apical predominant centrilobular emphysema with no concerning masses or nodules. I have no PFTs. She has been maintained on inhalers. She wears no oxygen at home and a few months ago when she checked her pulse oximetry is 94-95%. Few months ago when she was feeling well she had 2 block limitation in her activity due to leg pain and back pain not dyspnea on exertion. At baseline she has no chronic cough, she produces phlegm 1 to 2 times a day and has no hemoptysis. Patient smoked tobacco from [id number] at half a pack a day for a total of 30 pack years. Patient was exposed to secondhand smoke from her father and after she moved out of her father's house she has lived with smokers all her life. Patient smokes marijuana 2-3 inhalations a day for the last 10 years and quit in May of 2025. Patient denies vaping, illicit drug use. 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 Current illness started on 06/17 where she had minimal shortness of breath with no cough, fever. She did have slightly more phlegm than usual with no hemoptysis. On 06/18 she noticed that her heart was racing and then her shortness of breath got much worse and she presented to the emergency department on 06/19/2025. She complained of worsening shortness of breath. EMS had given her DuoNebs x2 and Solu-Medrol. In the emergency department her heart rate was irregularly irregular at a heart rate of 157. Blood pressure was 162/73, respirations were 26 and a room air saturations were 94%. She was afebrile. Her lungs were clear to auscultation. Her white blood cell count was 9.6 with 0.6% eosinophils, her creatinine was 2.26, serum bicarb was 20, her chest x-ray showed congestion. Patient was treated for dehydration with 1 L IV fluid, IV diltiazem, IV heparin, ceftriaxone and doxycycline. It was felt she was not having a COPD exacerbation and steroids were discontinued. It was felt that she did not have a infection and her antibiotics were discontinued. 06/20/2025: Patient had an echocardiogram with an LVEF 65-70%. Severely enlarged left atrium, mild mitral regurg, mild tricuspid regurg with a PASP of 63. Normal RV size and function. Normal right atrial size. Mild mitral stenosis. 06/21/2025: Patient tells me she is breathing normal today. She denies phlegm or hemoptysis. Her cough is at her baseline. When I enter the room she was on Vapotherm with 45 L and 55% FiO2 with saturations 95%. I changed her to 15 L nasal cannula and sequentially decreased her to 8 L nasal cannula with saturations 91%. She felt better on the nasal cannula. She is afebrile. White blood cell count is 12.3, creatinine is 2.13, BNP is 6060. Free T4 is 1.37. Chest x-ray shows congestion. ABG on 8 L nasal cannula 7.40/35/59. Plan: I do not believe patient has having a COPD exacerbation, bronchitis or pneumonia. She does have hypoxemic respiratory failure without hypercarbic respiratory failure. I will continue her trelegy 100 which contains an muscarinic antagonist and I will therefore discontinue her nebulized ipra tropium. Goal saturation 90-94%. Patient has hypoxic respiratory failure somewhat out of proportion to her imaging and I will obtain echo with bubble study today. Later in the day patient had a V/Q scan with no large subsegmental areas of mismatch perfusion mismatch in the right base correlates with x-ray findings overall intermediate study and no evidence of chronic thromboembolic disease. Later in the day patient had a CT chest with bibasilar dependent consolidations with some endobronchial mucus changes consistent with atelectasis or pneumonia, mild apical predominant centrilobular emphysema trace pleural effusions. Later in the day patient had a bubble study which demonstrated a couple of bubbles in the left side after 4-5 seconds suggesting of either a tiny patent foramen ovale or transpulmonary bubbles. 06/22/25: patient tells me she is better today. She states she is 80% back to her normal. She has no rest shortness of breath and has not been out of bed. She has having nose bleeds. She has cough with phlegm. When I enter the room she was on 10 L nasal cannula with saturations 96%. I suppose sequentially decreased her to 5 L and her saturations were 91%. Patient had a fever yesterday at 37.9. White blood cell count 9.4, creatinine 2.23, procalcitonin 0.1. PTT 87.9, Plan: patient with a fever last night, minimal cough but with some congestion, CT scan with basilar dependent consolidations with mucus. I will treat the patient for pneumonia. Blood cultures, nasal swab for MRSA, respiratory pathogen panel, mycoplasma IgM, urine Legionella antigen, urine pneumococcal antigen have been ordered. After blood cultures will initiate ceftriaxone 1 g Q 24 and Levaquin 750 mg Q 48 hours. I do not feel there is a COPD exacerbation with continue her trelegy 100. Goal saturation 90-94%, wean oxygen accordingly. I will add guaifenesin 1200 mg p.o. b.i.d. as she has phlegm that is difficult to expectorate. Given the likely dependent atelectasis I will start EzPAP. 06/23/2025: Patient continues to improve. She tells me is breathing normally at rest. She has no dyspnea on exertion walking from the bed to the chair. Her cough is normal. Her phlegm continues but it has improved. Phlegm color is brown. When I enter the room she was on 5 L nasal cannula with saturations 92%. I weaned her to room air and after 11 minutes her saturations were 90%. She is afebrile. White blood cell count 8.5, creatinine 2.15, BUN 64, PTT 176. BNP has improved from 6060 on 06/21/2025 to 3190 today. yesterday she was positive 1 L. Cumulative she is positive 2.9 L. Her weight today is 94 kg. Plan: patient feels improved today. I will continue treatment for pneumonia. Blood cultures, nasal swab for MRSA, respiratory pathogen panel, mycoplasma IgM, urine Legionella antigen, urine pneumococcal antigen pending. continue ceftriaxone 1 g Q 24 and Levaquin 750 mg Q 48 hours. I do not feel there is a COPD exacerbation with continue her trelegy 100. Goal saturation 90-94%, wean oxygen accordingly and I weaned her to room air currently. Continue guaifenesin 1200 mg p.o. b.i.d. as she has phlegm that is difficult to expectorate. continue EzPAP. 06/24/2025: Patient tells me she continues to improve. She is breathing normally at rest. Her dyspnea on exertion when walking in the room to the doorway and bathroom is normal for her. Her cough is improved but persistent. Her phlegm production is brown but clearing. When I enter the room the patient was on 2 L nasal cannula saturations 95%. Eight years her room air and her saturations were 92%. She is afebrile. White blood cell count 8.4, creatinine 2.23, BUN 65. GALINA screen is negative. Patient was 1.06 L positive yesterday, cumulative positive 3.9 L. Weight is 94 kg. Plan: I will continue treatment for possible pneumonia. Continue ceftriaxone and Levaquin, day 3 both, while she is in the hospital. Nasal swab for MRSA negative. Respiratory pathogen panel negative, serum mycoplasma IgM negative. Urine for pneumococcal and Legionella pending. Continue trelegy 100. Goal saturation 90-94%, wean oxygen accordingly and I weaned her to room air cur rently. Continue guaifenesin 1200 mg p.o. b.i.d. and EzPAP. From a pulmonary perspective patient is ready to be discharged on these pulmonary medications: Levaquin 750 mg p.o. q.d. 48 hours to finish a 7 day course. Trelegy 100-60 2.5-25 at 1 puff q.day. Rescue albuterol 2 puffs q.4 hours p.r.n. shortness of breath or wheezing. Flonase 1 spray each nostril q.12 hours. Guaifenesin 600 mg p.o. b.i.d. p.r.n. congestion. Flutter valve q.2 hours while awake. Oxygen at rest and with activity per formal home O2 assessment which I have ordered today. When she naps or sleeps: Through her [employer], [employer] [facility], CPAP 12 with 6 L bleed in. Discussed with Dr. Ruiz, will follow with you. (2) Pulmonary hypertension: Code(s): I27.20 - Pulmonary hypertension, unspecified Status: Acute Assessment and Plan: Patient was admitted to [facility] with fluid overload and congestive heart failure from 12/26/2024 through 12/30/2024. During that hospitalization she had an echocardiogram on 12/28 that showed grade 3 diastolic dysfunction, moderate mitral regurg, moderate tricuspid regurg with a PASP of 70. LV EF was not stated in the discharge summary. Hydralazine was added to her regimen. ABG during that admission was 7.32/42/59 and the patient was started on BiPAP and moved to the ICU and eventually transitioned to CPAP. She was discharged home on oxygen and she wore this for 2-3 weeks. She was supposed to follow-up with pulmonary but has not done this. No mention of a COPD exacerbation in the discharge summary. 06/20/2025: Patient had an echocardiogram with an LVEF 65-70%. Severely enlarged left atrium, mild mitral regurg, mild tricuspid regurg with a PASP of 63. Normal RV size and function. Normal right atrial size. Mild mitral stenosis. Etiology of pulmonary hypertension includes: Idiopathic pulmonary arterial hypertension, pulmonary hypertension with heart failure with preserved LVEF, severe diastolic dysfunction, mitral stenosis, COPD, hypoxic respiratory failure, doubt chronic thromboembolic pulmonary hypertension. Plan: I will obtain V/Q scan of the chest today to assess for chronic thromboembolic pulmonary hypertension. BNP is elevated and chest x-ray with congestion likely related to AFib with RVR. Patient received Lasix 40 IV today. Cardiology is following to optimize her cardiac function and volume status. there is no evidence of COPD exacerbation will continue her maintenance inhalers. She has discontinued tobacco use. Patient was started on sotalol and dose will be decreased due to bradycardia. Later in the day patient had a V/Q scan with no large subsegmental areas of mismatch perfusion mismatch in the right base correlates with x-ray findings overall intermediate study and no evidence of chronic thromboembolic disease. Later in the day patient had a CT chest with bibasilar dependent consolidations with some endobronchial mucus changes consistent with atelectasis or pneumonia, mild apical predominant centrilobular emphysema trace pleural effusions. Later in the day patient had a bubble study which demonstrated a couple of bubbles in the left side after 4-5 seconds suggesting of either a tiny patent foramen ovale or transpulmonary bubbles. 06/21/25: Overall patient has improved with diuretics, management of blood pressure, management of atrial fibrillation with rapid ventricular response. She improved prior to initiation of treatment for possible pneumonia which was started today. Yesterday she was -70 mL, cumulative she is positive 1.2 L since admission. Her weight today is 93.7. Chest x-ray today with minimally improved congestion. Plan: cardiac medications are being managed by preschool paraprofessional and hospitalist team. Currently she is on amlodipine 10, hydrochlorothiazide 12.5, losartan 100 q.day, Imdur 60 q.day, hydralazine 75 p.o. q.i.d. and sotalol 40 q.day. she is on IV heparin and aspirin 81. continued new treatment for hypoxemic respiratory failure, COPD and pneumonia as above. Minimal [id number] shunt after 4-5 seconds suggesting intrapulmonary shunt may be contributing to hypoxemic respiratory failure. Last night the patient wore the hospital CPAP 12 with 50% FiO2 and decrease to 40% FiO2 throughout the night. She said the machine was not as comfortable as her home machine but she did get minimal sleep. 06/23/25: cardiac medicines managed by preschool paraprofessional and hospitalist team. Hydralazine has been increased. Plan: Will continue management of COPD, possible pneumonia and obstructive sleep apnea as detailed in the note. Patient wore her home machine with a full face mask with 4 L bleed in and said that the machine felt normal for her. She had an overnight oximetry with recording duration of 7 hours and 1 minutes. Average saturation 87%. Low saturation 85%. Time with saturation less than or equal to 88% was 354 minutes. Oxygen desaturation index 0. 06/24/25: from a respiratory status her COPD, possible pneumonia and obstructive sleep apnea are being treated adequately. Patient wore her home CPAP 12 with 6 L bleed in and said she slept well. Overnight oximetry with recording duration of 6 hours and 8 minutes could. Average saturation 92%. Low saturation 89%. Time with saturation less than or equal to 88% was 0 minutes. Oxygen desaturation index 0. Patient remains hypertensive despite 5 medications. Plan: CPAP 12 with 6 L bleed in provide adequate oxygenation, Continue treatment for COPD and possible pneumonia as described in the note. Renal ultrasound to assess for possible renal artery stenosis. My plan will be to treat her COPD, hypoxemic respiratory failure, pneumonia, atrial fibrillation, hypertension, congestive heart failure, mitral stenosis, and obstructive sleep apnea and repeat echocardiogram in 3 months as an outpatient. (3) Sleep apnea: Qualifiers: Sleep apnea type: unspecified type Qualified Code(s): G47.30 - Sleep apnea, unspecified Code(s): G47.30 - Sleep apnea, unspecified Status: Acute Assessment and Plan: Regarding her obstructive sleep apnea she was diagnosed approximately 10 years ago with a sleep study. She does not remember where this sleep study was performed. She is on CPAP and does not know her settings. She does not wear oxygen with her CPAP. She does not know her DME company. She uses a fullface mask. She says she wears her mask regularly. 06/21/25: Last night the patient was placed on CPAP 10 and pressures were increased to CPAP 16. She says that she wore the mask last night and that these settings felt similar to her home settings. Plan: Patient believes her DME company may be [employer] and we will check with them for a download. I have told her to have her family bring in her CPAP machine so that we can verify her settings. If no verification will continue CPAP 16 as she said that this felt similar to her home settings. 06/22/25: Last night the patient wore the hospital CPAP 12 with 50% FiO2 and decrease to 40% FiO2 throughout the night. She said the machine was not as comfortable as her home machine but she did get minimal sleep. Plan: Patient tells me her family will bring in her home CPAP machine. We will then attempt to identify the company in get a download. If her home machine is brought in she will wear her home machine with 4 L bleed in. 06/23/25: Patient wore her home machine with a full face mask with 4 L bleed in and said that the machine felt normal for her. She had an overnight oximetry with recording duration of 7 hours and 1 minutes. Average saturation 87%. Low saturation 85%. Time with saturation less than or equal to 88% was 354 minutes. Oxygen desaturation index 0. Plan: I will attempt to obtain a download from her DME company [employer]. I will continue her current settings and perform an overnight oximetry with 6 L bleed in. 06/23/2025: Later in the day obtained a download from [employer] from 05/24/2025 2 06/22/2025. Patient is on CPAP 12. Usage days greater than or equal to 4 hours was 90%. Average usage on days used 11 hours and 33 minutes. AHI 0.5. Apnea index 0.5, hypopnea index 0.0, central apnea index 0.0. Median leak 5.6, 95th percentile leak 23.4, maximum leak 115.4. I interpret this download as good compliance, adequate pressures and moderate leak. 06/24/25: patient wearing her home CPAP 12 with 6 L bleed in and said she had a good night and slept well. Patient wore her home CPAP 12 with 6 L bleed in and said she slept well. Overnight oximetry with recording duration of 6 hours and 8 minutes could. Average saturation 92%. Low saturation 89%. Time with saturation less than or equal to 88% was 0 minutes. Oxygen desaturation index 0. Plan: Will continue CPAP 12 with 6 L bleed in. placement coordinator will check with her DME company, [employer], to make sure she has a 6 L oxygen flow concentrator in her mobile home. Subjective Date/time seen: 06/24/25 10:53 Interval history: 06/21/2025: This is a new pulmonary consult for COPD and pulmonary hypertension. 75-year-old with a history of coronary artery disease status post stents in 2011, diabetes, hypertension, hyperlipidemia, CKD stage 3 to 4, DENNIS on CPAP for 10 years. Patient was admitted to [facility] with fluid overload and congestive heart failure from 12/26/2024 through 12/30/2024. During that hospitalization she had an echocardiogram on 12/28 that showed grade 3 diastolic dysfunction, moderate mitral regurg, moderate tricuspid regurg with a PASP of 70. LV EF was not stated in the discharge summary. Hydralazine was added to her regimen. ABG during that admission was 7.32/42/59 and the patient was started on BiPAP and moved to the ICU and eventually transitioned to CPAP. She was discharged home on oxygen and she wore this for 2-3 weeks. She was supposed to follow-up with pulmonary but has not done this. No mention of a COPD exacerbation in the discharge summary. Regarding her obstructive sleep apnea she was diagnosed approximately 10 years ago with a sleep study. She does not remember where this sleep study was performed. She is on CPAP and does not know her settings. She does not wear oxygen with her CPAP. She does not know her [employer] company. She uses a fullface mask. She says she wears her mask regularly. Regarding her COPD the patient tells me she did PFTs at [facility] 4-5 years ago and they told her she had a little bit of COPD. Patient had a CT scan of the chest in our system on 05/10/2020 with very mild apical predominant centrilobular emphysema. Her last CT scan low-dose on 09/13/2024 showed mild apical predominant centrilobular emphysema with no concerning masses or nodules. I have no PFTs. She has been maintained on inhalers. She wears no oxygen at home and a few months ago when she checked her pulse oximetry is 94-95%. Few months ago when she was feeling well she had 2 block limitation in her activity due to leg pain and back pain not dyspnea on exertion. At baseline she has no chronic cough, she produces phlegm 1 to 2 times a day and has no hemoptysis. Patient smoked tobacco from [id number] at half a pack a day for a total of 30 p ack years. Patient was exposed to secondhand smoke from her father and after she moved out of her father's house she has lived with smokers all her life. Patient smokes marijuana 2-3 inhalations a day for the last 10 years and quit in May of 2025. Patient denies vaping, illicit drug use. 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 04/14/2025: Patient saw her literature professor she weighed 196 lb. Her creatinine on 04/11/2025 was 1.58. 04/28/2025: Patient followed with her preschool paraprofessional, Dr. Colón, she had 2 block dyspnea on exertion, her room air saturations were 92%. Her weight was 195 lb. Respiratory medicines include trelegy 100, albuterol p.r.n. and Flonase. Current illness started on 06/17 where she had minimal shortness of breath with no cough, fever. She did have slightly more phlegm than usual with no hemoptysis. On 06/18 she noticed that her heart was racing and then her shortness of breath got much worse and she presented to the emergency department on 06/19/2025. She complained of worsening shortness of breath. EMS had given her DuoNebs x2 and Solu-Medrol. In the emergency department her heart rate was irregularly irregular at a heart rate of 157. Blood pressure was 162/73, respirations were 26 and a room air saturations were 94%. She was afebrile. Her lungs were clear to auscultation. Her white blood cell count was 9.6 with 0.6% eosinophils, her creatinine was 2.26, serum bicarb was 20, her chest x-ray showed congestion. Patient was treated for dehydration with 1 L IV fluid, IV diltiazem, IV heparin, ceftriaxone and doxycycline. It was felt she was not having a COPD exacerbation and steroids were discontinued. It was felt that she did not have a infection and her antibiotics were discontinued. 06/20/2025: Patient had an echocardiogram with an LVEF 65-70%. Significant diastolic dysfunction with E/e' 48. Severely enlarged left atrium, mild mitral r egurg, mild tricuspid regurg with a PASP of 63. Normal RV size and function. Normal right atrial size. Mild mitral stenosis. 06/21/2025: Patient tells me she is breathing normal today. She denies phlegm or hemoptysis. Her cough is at her baseline. When I enter the room she was on Vapotherm with 45 L and 55% FiO2 with saturations 95%. I changed her to 15 L nasal cannula and sequentially decreased her to 8 L nasal cannula with saturations 91%. She felt better on the nasal cannula. She is afebrile. White blood cell count is 12.3, creatinine is 2.13, BNP is 6060. Free T4 is 1.37. Chest x-ray shows congestion. ABG on 8 L nasal cannula 7.40/35/59. Last night the patient was placed on CPAP 10 and pressures were increased to CPAP 16. She says that she wore the mask last night and that these settings felt similar to her home settings. Later in the day patient had a V/Q scan with no large subsegmental areas of mismatch perfusion mismatch in the right base correlates with x-ray findings overall intermediate study and no evidence of chronic thromboembolic disease. Later in the day patient had a CT chest with bibasilar dependent consolidations with some endobronchial mucus changes consistent with atelectasis or pneumonia, mild apical predominant centrilobular emphysema trace pleural effusions. Later in the day patient had a bubble study which demonstrated a couple of bubbles in the left side after 4-5 seconds suggesting of either a tiny patent foramen ovale or transpulmonary bubbles. 06/22/25: patient tells me she is better today. She states she is 80% back to her normal. She has no rest shortness of breath and has not been out of bed. She has having nose bleeds. She has cough with phlegm. When I enter the room she was on 10 L nasal cannula with saturations 96%. I suppose sequentially decreased her to 5 L and her saturations were 91%. Patient had a fever yesterday at 37.9. White blood cell count 9.4, creatinine 2.23, procalcitonin 0.1.PTT 87.9, yesterday she was -70 mL, cumulative she is positive 1.2 L since admission. Her weight today is 93.7. Chest x-ray today with minimally improved congestion. Last night the patient wore the hospital CPAP 12 with 50% FiO2 and decrease to 40% FiO2 throughout the night. She said the machine was not as comfortable as her home machine but she did get minimal sleep. 06/23/2025: Patient continues to improve. She tells me is breathing normally at rest. She has no dyspnea on exertion walking from the bed to the chair. Her cough is normal. Her phlegm continues but it has improved. Phlegm color is brown. When I enter the room she was on 5 L nasal cannula with saturations 92%. I weaned her to room air and after 11 minutes her saturations were 90%. She is afebrile. White blood cell count 8.5, creatinine 2.15, BUN 64, PTT 176. BNP has improved from 6060 on 06/21/2025 to 3190 today. yesterday she was positive 1 L. Cumulative she is positive 2.9 L. Her weight today is 94 kg. Patient wore her home machine with a full face mask with 4 L bleed in and said that the machine felt normal for her. She had an overnight oximetry with recording duration of 7 hours and 1 minutes. Average saturation 87%. Low saturation 85%. Time with saturation less than or equal to 88% was 354 minutes. Oxygen desaturation index 0. 06/23/2025: Later in the day obtained a download from respiratory care from 05/24/2025 2 06/22/2025. Patient is on CPAP 12. Usage days greater than or equal to 4 hours was 90%. Average usage on days used 11 hours and 33 minutes. AHI 0.5. Apnea index 0.5, hypopnea index 0.0, central apnea index 0.0. Median leak 5.6, 95th percentile leak 23.4, maximum leak 115.4. I interpret this download as good compliance, adequate pressures and moderate leak. 06/24/2025: Patient tells me she continues to improve. She is breathing normally at rest. Her dyspnea on exertion when walking in the room to the doorway and bathroom is normal for her. Her cough is improved but persistent. Her phlegm production is brown but clearing. When I enter the room the patient was on 2 L nasal cannula saturations 95%. Eight years her room air and her saturations were 92%. She is afebrile. White blood cell count 8.4, creatinine 2.23, BUN 65. GALINA screen is negative. Patient was 1.06 L positive yesterday, cumulative positive 3.9 L. Weight is 94 kg. Patient wore her home CPAP 12 with 6 L bleed in and said she slept well. Overnight oximetry with recording duration of 6 hours and 8 minutes could. Average saturation 92%. Low saturation 89%. Time with saturation less than or equal to 88% was 0 minutes. Oxygen desaturation index 0. DATA: 06/21/25: EXAMINATION:CT diagnostic chest wo con INDICATION: Hypoxia COMPARISON: July 13, 2025 FINDINGS: Bibasilar consolidations with atelectatic changes have developed right worse than left. Trace bilateral pleural effusions. And the mainstem bronchi, streaky mucoid appearing changes are present. Tracheal air column as trace dependent secretions but no obvious mass. Heart and great vessels appear stable. Extensive coronary artery calcification. 10 mm nodule anterior right midlung image 57 series 4 is stable. Borderline pathologic sized mediastinal lymph nodes not clearly changed. Diffuse degenerative changes in the bones. IMPRESSION: 1. Bibasilar consolidations likely associated with aspiration versus community- acquired pneumonia. Mucoid appearing changes in the bronchi endotracheal air column support aspiration. Findings should be followed radiographically until clear. 2. Other chronic appearing findings. 06/21/25: Bubble study Summary 1. BUBBLE STUDY APPEARS POSITIVE IN BOTH CLIPS TOWARDS END. 2. Limited echocardiogram. 3. Left ventricular chamber dimension is normal. 4. Left ventricular systolic function is normal, estimated at 65-70. 5. The left ventricular diastolic function is indeterminate as it was not assessed. 6. Interatrial septum not well visualized by 2D and agitated saline imaging. 7. Agitated saline injection with and without valsalva maneuver opacified right side cardiac chambers with a couple of bubbles shunt to left side cardiac chambers after 4-5 seconds. This suggests either tiny patent foramen ovale or they are transpulmonary bubbles that made it through. 06/21/25: EXAM/PROCEDURE: NM lung vent and perfusion HISTORY: SOB, CP, afib rvr COMPARISON: Portable chest x-ray same day. RADIOISOTOPE: 22.9 mCi xenon used for the ventilatory portion of today's exam. Perfusion scan was performed using 5.5 mCi technetium 99m microaggregated albumin. FINDINGS: Prominent area of photopenia corresponding to the heart shadow consistent with cardiomegaly. Obscuration of the right lung base on recent radiograph, corresponds to possible segmental size area of mismatch in the right lung base, although findings are complicated due to radiographic findings. IMPRESSION: No compelling or large segmental size areas of mismatch, and with right base findings on today's chest x-ray, the perfusion mismatch in the right base is of uncertain significance. Per PIOPED criteria, this is an indeterminate INTERMEDIATE probability for pulmonary embolus. 06/20/25: Echo Summary 1. Definity contrast administered improved wall motion interpretation. 2. Left ventricular chamber dimension is normal. 3. Left ventricular systolic function is normal, estimated at 65-70. 4. There is moderate concentric increased left ventricular wall thickness. 5. E/e' 48 is significantly elevated. 6. Left atrial chamber dimension is severely enlarged. 7. The mitral valve has moderately calcified leaflets and a moderately calcified annulus. 8. There is mild mitral valve regurgitation. 9. There is mild tricuspid valve regurgitation. 10. Severe pulmonary hypertension, estimated pulmonary arterial systolic pressure is 63 mmHg. 11. Dilated inferior vena cava with >50% collapse upon inspiration consistent with elevated right atrial pressure, 10 mmHg. Right Ventricle Right ventricular chamber dimension is normal. Right ventricular systolic function is normal and with normal TAPSE 2.3 cm. Left Atria Left atrial chamber dimension is severely enlarged. Right Atria Right atrial chamber dimension is normal. Mitral Valve The mitral valve has moderately calcified leaflets and a moderately calcified annulus. There is mild mitral valve stenosis with valve area of 1.9 cm2. There is mild mitral valve regurgitation. 09/13/24: EXAMINATION:CT lung screening INDICATION: Personal history of nicotine dependence. Current smoker with 56 pack year history. COMPARISON: Chest CT 09/10/2023 FINDINGS: There is mild emphysema. There is a 3 mm nodule in right upper lobe. There is a 7 mm nodule at minor fissure without change. Calcified pulmonary nodules and calcified hilar and mediastinal lymph nodes are consistent with old granulomatous disease. There is mild atelectasis bilaterally. No pleural effusion. Cardiomegaly is noted. There are coronary artery calcifications. No pericardial effusion. There are changes of cholecystectomy. There is severe thoracic spondylosis. IMPRESSION: 1. Lung-RADS category 2: Benign appearance or behavior. Continue annual screening with noncontrast low-dose chest CT in 12 months. Review of Systems Constitutional: Constitutional: Reports no additional constitutional complaints Eyes: Eyes: Reports no additional eye complaints ENT: Reports system reviewed and no additional complaints, except as documented Cardiovascular: Cardiovascular: Reports no additional cardiovascular complaints Respiratory: Respiratory: Reports no additional respiratory complaints Gastrointestinal: Gastrointestinal: Reports no additional gastrointestinal complaints Musculoskeletal: Musculoskeletal: Reports no additional musculoskeletal complaints Neurologic: Reports system reviewed and no additional complaints, except as documented Psychiatric: Psychiatric: Reports no additional psychiatric complaints Endocrine: Endocrine: Reports no additional endocrine complaints Hematologic/Lymphatic: Hematologic/Lymphatic: Reports no additional hematologic/lymphatic complaints Allergic/Immunologic: Allergic/Immunologic: Reports no additional allergic/immunologic complaints Exam Const: General: cooperative, healthy appearing and comfortable Orientation/consciousness: oriented to person, oriented to place and oriented to time HENMT: Head: normal to inspection Ears: hearing grossly normal bilaterally Eyes: General: appearance normal, both eyes and all related structures Neck: Neck: normal visual inspection Chest: Chest palpation & inspection: normal inspection of the chest Resp: Effort & Inspection: normal respiratory effort and able to speak in complete sentences Auscultation: crackles, no rales, no rhonchi, no wheezes and lung sounds not diminished Other: Few crackles at the base. Cardio: Jugular venous distension: no JVD GI: Inspection: normal to inspection Skin: General skin exam: normal color Neuro: General: oriented to person, oriented to place and oriented to time Extrem: General: normal to inspection and no edema Psych: Appearance: grossly normal Objective Data Vital Signs Vital Signs: Vital Signs - 24 hr 06/23/25 11:54 06/23/25 12:00 06/23/25 12:00 Temperature 36.7 C Pulse Rate 51 L 71 Respiratory Rate 16 Blood Pressure 164/44 H Pulse Oximetry 95 95 Oxygen Delivery Nasal Cannula Oxygen Flow Rate 2 Fraction of Inspired Oxygen 06/23/25 14:00 06/23/25 16:00 06/23/25 16:00 Temperature 36.7 C Pulse Rate 53 L 57 L 51 L Respiratory Rate 20 Blood Pressure 164/43 H Pulse Oximetry 91 Oxygen Delivery Oxygen Flow Rate Fraction of Inspired Oxygen 06/23/25 16:00 06/23/25 20:00 06/23/25 20:00 Temperature 37.1 C Pulse Rate 54 L 61 Respiratory Rate 20 Blood Pressure 168/43 H Pulse Oximetry 91 94 Oxygen Delivery Nasal Cannula Oxygen Flow Rate 2 Fraction of Inspired Oxygen 06/23/25 20:41 06/23/25 22:00 06/23/25 22:53 Temperature Pulse Rate 57 L 55 L 60 Respiratory Rate Blood Pressure Pulse Oximetry 91 92 Oxygen Delivery High Flow Nasal Cannula CPAP Oxygen Flow Rate 2 Fraction of Inspired Oxygen 06/23/25 22:53 06/23/25 23:46 06/24/25 00:00 Temperature 37.3 C Pulse Rate 60 55 L 52 L Respiratory Rate 20 Blood Pressure 148/40 H Pulse Oximetry 92 92 Oxygen Delivery CPAP Oxygen Flow Rate 6 Fraction of Inspired Oxygen 06/24/25 02:00 06/24/25 03:45 06/24/25 04:00 Temperature 36.6 C Pulse Rate 49 L 49 L 45 L Respiratory Rate 20 Blood Pressure 182/42 H Pulse Oximetry 91 Oxygen Delivery Oxygen Flow Rate Fraction of Inspired Oxygen 06/24/25 06:00 06/24/25 07:44 06/24/25 08:00 Temperature 36.9 C Pulse Rate 45 L 67 Respiratory Rate 26 H Blood Pressure 207/32 H Pulse Oximetry 96 93 Oxygen Delivery High Flow Nasal Cannula Oxygen Flow Rate 2 Fraction of Inspired Oxygen 06/24/25 08:00 06/24/25 08:00 06/24/25 08:00 Temperature Pulse Rate 67 Respiratory Rate 26 H Blood Pressure 208/32 H 197/41 H Pulse Oximetry 93 Oxygen Delivery High Flow Nasal Cannula Oxygen Flow Rate 2 Fraction of Inspired Oxygen 55 06/24/25 08:00 06/24/25 08:40 Temperature Pulse Rate 67 55 L Respiratory Rate Blood Pressure Pulse Oximetry Oxygen Delivery Oxygen Flow Rate Fraction of Inspired Oxygen Intake/Output Intake/Output: Intake & Output 06/21/25 06/22/25 06/23/25 06/24/25 23:59 23:59 23:59 23:59 Intake Total 1330.3 1389.2 2110.0 580 Output Total 1975 389 9703 Balance -69.7 1039.2 1060.0 580 Meds/Results Medications: Active Medications Generic Name Dose Route Start Last Admin Trade Name Freq PRN Reason Stop Dose Admin Acetaminophen 1,000 mg 06/19/25 22:44 06/22/25 21:13 Acetaminophen 500 Mg Tablet PO 1,000 mg TID PRN Administration Mild Pain (1-3) or Fever Allopurinol 100 mg 06/23/25 09:00 06/24/25 08:39 Allopurinol 100 Mg Tablet PO 100 mg Q48HR DAVID Administration Apixaban 2.5 mg 06/23/25 21:00 06/24/25 08:40 Apixaban 2.5 Mg Tablet PO 2.5 mg Q12HR DAVID Administration Aspirin 81 mg 06/20/25 09:00 06/24/25 08:40 Aspirin 81 Mg Enteric Tablet PO 81 mg DAILY DAVID Administration Atorvastatin Calcium 80 mg 06/20/25 09:55 06/24/25 08:38 Atorvastatin 40 Mg Tablet PO 80 mg DAILY DAVID Administration Dextrose 12.5 gm 06/19/25 21:30 Dextrose 50% 25 Gm/50 Ml Syringe IV PUSH PRN PRN Hypoglycemia Protocol Fluticasone Propionate 1 spray 06/20/25 09:00 06/24/25 08:40 Fluticasone Propionate 0.05% Na Spr 16 Gm Btl (*Bkc) NASAL 1 spray Q12H DAVID Administration Fluticasone/Umeclidinium/Vilanterol 1 puff 06/20/25 09:00 06/24/25 07:44 Fluticasone/Umeclidin/Vilanter 100-62.5-25 Mcg Ellipta INHALATION 1 puff Q24H DAVID Administration Glucose 15 gm 06/19/25 21:30 Glucose Oral Gel 15 Gm Of Glucse In 37.5 Gm Tube PO PRN PRN Hypoglycemia Protocol Guaifenesin 1,200 mg 06/22/25 09:20 06/24/25 08:38 Guaifenesin 12 Hr 600 Mg Tabcr PO 1,200 mg Q12HR DAVID Administration Hydralazine HCl 100 mg 06/22/25 17:00 06/24/25 08:39 Hydralazine Hcl 50 Mg Tablet PO 100 mg QID DAVID Administration Hydrochlorothiazide 12.5 mg 06/20/25 09:50 06/24/25 08:39 Hydrochlorothiazide 12.5 Mg Capsule PO 12.5 mg DAILY DAVID Administration Dextrose 1,000 mls @ 100 mls/hr 06/19/25 21:30 Dextrose 5% 1,000 Ml IVPB PRN PRN Hypoglycemia Protocol Ceftriaxone Sodium 1 gm/ 50 mls @ 100 mls/hr 06/22/25 09:00 06/24/25 08:38 Sodium Chloride IVPB 100 mls/hr Q24H DAVID Administration Levofloxacin/Dextrose 750 mg in 150 mls @ 100 mls/hr 06/22/25 09:00 06/24/25 08:40 Levaquin 750 Mg/D5w 150 Ml IVPB 100 mls/hr Q48HR DAVID Administration Insulin Aspart 2 - 5 units 06/20/25 08:00 06/24/25 08:38 Insulin Aspart (*Bkc) 100 Units/Ml SUB-Q Not Given TIDWM DAVID Protocol Insulin Aspart 1 - 2 units 06/20/25 21:00 06/23/25 21:12 Insulin Aspart (*Bkc) 100 Units/Ml SUB-Q 1 units HS DAVID Administration Protocol Isosorbide Mononitrate 60 mg 06/20/25 09:50 06/24/25 08:41 Isosorbide Mononitrate 60 Mg Tab.Er.24h PO 60 mg DAILY DAVID Administration Levalbuterol HCl 0.63 mg 06/21/25 19:41 06/21/25 20:05 Levalbuterol Neb 1.25 Mg/3 Ml INHALATION 0.63 mg Q6HRT PRN Administration shortness of breath Levothyroxine Sodium 100 mcg 06/21/25 06:30 06/24/25 06:14 Levothyroxine Sodium 100 Mcg Tablet PO 100 mcg DAILY@0630 DAVID Administration Losartan Potassium 100 mg 06/20/25 09:00 06/22/25 09:16 Losartan Potassium 100 Mg Tablet PO 100 mg On Hold: 06/22/25 15:20 DAILY DAVID Administration Nifedipine 30 mg 06/24/25 09:00 06/24/25 08:39 Nifedipine 30 Mg Tab.Er.24 PO 30 mg QAM DAVID Administration Sotalol HCl 40 mg 06/21/25 09:00 06/24/25 08:40 Sotalol Hcl 40 Mg Tablet PO 40 mg DAILY DAVID Administration Radiology Results: ITS Impressions Pulmonary Perfusion Imaging 06/21/25 11:25 IMPRESSION: No compelling or large segmental size areas of mismatch, and with right base findings on today's chest x-ray, the perfusion mismatch in the right base is of uncertain significance. Per PIOPED criteria, this is an indeterminate INTERMEDIATE probability for pulmonary embolus. Renal Ultrasound 06/21/25 13:56 IMPRESSION: 1. Normal kidneys without hydronephrosis. Chest CT 06/21/25 14:30 IMPRESSION: 1. Bibasilar consolidations likely associated with aspiration versus community- acquired pneumonia. Mucoid appearing changes in the bronchi endotracheal air column support aspiration. Findings should be followed radiographically until clear. 2. Other chronic appearing findings. Chest X-Ray 06/22/25 07:45 IMPRESSION: 1. Stable to mildly improved appearance of interstitial/vascular markings. Labs Labs: Laboratory Results - last 24 hr 06/22/25 06/22/25 06/23/25 01:18 11:29 11:42 WBC RBC Hgb Hct MCV MCH MCHC RDW Plt Count MPV Immature Gran % (Auto) Neut % (Auto) Lymph % (Auto) Ware % (Auto) Eos % (Auto) Baso % (Auto) Lymph # (Auto) Ware # (Auto) Eos # (Auto) Baso # (Auto) Abs Immat Gran (auto) Absolute Neuts (auto) Absolute Nucleated RBC Nucleated RBC % APTT Sodium Potassium Chloride Carbon Dioxide Anion Gap BUN Creatinine Estim Creat Clear Calc Estimated GFR Glucose POC Capillary Glucose 199 H Calcium Magnesium Total Bilirubin AST ALT Alkaline Phosphatase Total Creatine Kinase Total Protein Albumin GALINA Screen Negative Chlamy pneumoniae PCR Not detected Adenovirus (PCR) Not detected B. pertussis DNA (PCR) Not detected B.parapertussis DNA PCR Not detected Coronavirus OC43 (PCR) Not detected Coronavirus HKU1 (PCR) Not detected Coronavirus 229E (PCR) Not detected Coronavirus NL63 (PCR) Not detected Human Metapneumovir PCR Not detected Influenza A (H1) PCR Not detected Influ A (H1/09) PCR Not detected Influenza A (H3) PCR Not detected Influenza Type A (PCR) Not detected Influenza Type B (PCR) Not detected M.pneumoniae IgM Titer <770 M. pneumoniae (PCR) Not detected Parainfluenza 1 (PCR) Not detected Parainfluenza 2 (PCR) Not detected Parainfluenza 3 (PCR) Not detected Parainfluenza 4 (PCR) Not detected RSV (PCR) Not detected Entero/Rhino (PCR) Not detected SARS-CoV-2 (PCR) Not detected 06/23/25 06/23/25 06/23/25 13:32 15:44 20:03 WBC RBC Hgb Hct MCV MCH MCHC RDW Plt Count MPV Immature Gran % (Auto) Neut % (Auto) Lymph % (Auto) Ware % (Auto) Eos % (Auto) Baso % (Auto) Lymph # (Auto) Ware # (Auto) Eos # (Auto) Baso # (Auto) Abs Immat Gran (auto) Absolute Neuts (auto) Absolute Nucleated RBC Nucleated RBC % APTT 81.2 H Sodium Potassium Chloride Carbon Dioxide Anion Gap BUN Creatinine Estim Creat Clear Calc Estimated GFR Glucose POC Capillary Glucose 207 H 267 H Calcium Magnesium Total Bilirubin AST ALT Alkaline Phosphatase Total Creatine Kinase Total Protein Albumin GALINA Screen Chlamy pneumoniae PCR Adenovirus (PCR) B. pertussis DNA (PCR) B.parapertussis DNA PCR Coronavirus OC43 (PCR) Coronavirus HKU1 (PCR) Coronavirus 229E (PCR) Coronavirus NL63 (PCR) Human Metapneumovir PCR Influenza A (H1) PCR Influ A () PCR Influenza A (H3) PCR Influenza Type A (PCR) Influenza Type B (PCR) M.pneumoniae IgM Titer M. pneumoniae (PCR) Parainfluenza 1 (PCR) Parainfluenza 2 (PCR) Parainfluenza 3 (PCR) Parainfluenza 4 (PCR) RSV (PCR) Entero/Rhino (PCR) SARS-CoV-2 (PCR) 06/24/25 06/24/25 05:47 07:10 WBC 8.4 RBC 3.42 L Hgb 11.0 L Hct 34.3 L MCV 100.3 H MCH 32.2 MCHC 32.1 RDW 14.2 Plt Count 165 MPV 11.6 H Immature Gran % (Auto) 0.5 Neut % (Auto) 64.1 Lymph % (Auto) 26.0 Ware % (Auto) 6.7 Eos % (Auto) 2.3 Baso % (Auto) 0.4 Lymph # (Auto) 2.18 Ware # (Auto) 0.6 Eos # (Auto) 0.2 Baso # (Auto) 0.0 Abs Immat Gran (auto) 0.04 H Absolute Neuts (auto) 5.4 Absolute Nucleated RBC 0.000 Nucleated RBC % 0.0 APTT Sodium 131 L Potassium 4.2 Chloride 104 Carbon Dioxide 23 Anion Gap 4 BUN 65 H Creatinine 2.23 H Estim Creat Clear Calc 21 Estimated GFR 21 L Glucose 140 H POC Capillary Glucose 172 H Calcium 8.7 Magnesium 2.5 H Total Bilirubin 0.5 AST 30 ALT 24 Alkaline Phosphatase 80 Total Creatine Kinase 43 Total Protein 5.8 L Albumin 3.0 L GALINA Screen Chlamy pneumoniae PCR Adenovirus (PCR) B. pertussis DNA (PCR) B.parapertussis DNA PCR Coronavirus OC43 (PCR) Coronavirus HKU1 (PCR) Coronavirus 229E (PCR) Coronavirus NL63 (PCR) Human Metapneumovir PCR Influenza A (H1) PCR Influ A () PCR Influenza A (H3) PCR Influenza Type A (PCR) Influenza Type B (PCR) M.pneumoniae IgM Titer M. pneumoniae (PCR) Parainfluenza 1 (PCR) Parainfluenza 2 (PCR) Parainfluenza 3 (PCR) Parainfluenza 4 (PCR) RSV (PCR) Entero/Rhino (PCR) SARS-CoV-2 (PCR)
--- NOTE | 2025-06-24 11:12 | P.PNNP_ITS ---
Progress Note: A&P Assessment and Plan (1) Acute kidney injury: Code(s): N17.9 - Acute kidney failure, unspecified Status: Acute Assessment and Plan: * relatively stable * as noted on admission (creatinie 2.26mg/dL) * fluctuating since hospitalization began * possible new baseline or element of CKD progression? (see #2) * several issues playing a role: * CHF exacerbation * Afib with RVR * COPD * hypoxia(?) * diuresis * ARB + HCTZ use prior to admission * other(?) * evaluation to date noted: * renal ultrasound w/o obstruction * urine electrolytes nonprerenal * urine eosinophils negative * noted proteinuria * CPK normal * follow trend of repeat labs and UOP (2) Stage 3b chronic kidney disease: Code(s): N18.32 - Chronic kidney disease, stage 3b Status: Chronic Assessment and Plan: * baseline creatinine seems to run ~ 1.3 - 1.7mg/dl * however, has been as high as 2.0mg/dl * this causes her to fluctuate between CKD state 3b and stage 4 * secondary to hypertension, diabetes vascular disease (CAD + hyperlipidemia), COPD/DENNIS, and age-related change * follows with Jennifer Chairez NP/Dr. Young for CKD management (3) CHF (congestive heart failure): Qualifiers: Heart failure chronicity: unspecified Heart failure type: unspecified Qualified Code(s): I50.9 - Heart failure, unspecified Code(s): I50.9 - Heart failure, unspecified Status: Acute Assessment and Plan: * suggeste by pulmonary vascular congestion on x-ray and exam * no lower extremity edema * reportedly just discharged from [facility] in December 2024 with heart failure (but not sent home on diuretics), * Echo results noted: * left ventricular systolic function is normal, estimated at 65 - 70% * mitral valve has moderately calcified leaflets and a moderately calcified annulus * mild mitral valve regurgitation * mild tricuspid valve regurgitation * severe pulmonary hypertension, estimated pulmonary arterial systolic pressure is 63 mmHg. * follow I/Os, daily weights, and respiratory status (4) Atrial fibrillation with rapid ventricular response: Code(s): I48.91 - Unspecified atrial fibrillation Status: Acute Assessment and Plan: * admission EKG showed AFib with RVR rate 155 * acheived rate control with IV Cardiazem * on heparin gtt * on sotalol (5) COPD (chronic obstructive pulmonary disease): Code(s): J44.9 - Chronic obstructive pulmonary disease, unspecified Status: Acute Assessment and Plan: * Pulmonary following with recommendations noted * on inhalers * supplemental oxygen PRN (6) Pulmonary hypertension: Code(s): I27.20 - Pulmonary hypertension, unspecified Status: Acute Assessment and Plan: * as seen on echocardiogram with RVSP of 63 mmHg * Pulmonology and Cardiology following (7) Hypertension: Qualifiers: Hypertension type: essential hypertension Qualified Code(s): I10 - Essential (primary) hypertension Code(s): I10 - Essential (primary) hypertension Status: Acute Assessment and Plan: * quite erratic control * off ARB due to #1 * titrate hydralazine * change nifedipine to bid * consider titration of Imdur * follow trend of hemodynamics (8) Type 2 diabetes mellitus with diabetic chronic kidney disease: Code(s): E11.22 - Type 2 diabetes mellitus with diabetic chronic kidney disease Status: Acute Assessment and Plan: * follow accu-cheks * glycemic control per hospitalist Will continue to follow. L Subjective Date/time seen: 06/24/25 11:12 Interval history: Follow-up for acute kidney injury/acute renal failure on chronic kidney disease. BP still somewhat difficult to control as noted by trend of readings; renal function/creatinine remains relatively stable as this time; no apparent distress; no issues/events overnight or earlier this morning. Exam 2 Narrative: General: elderly but WD/WN female in NAD Heart: IRRR, normal S1 and S2; no rub Lungs: coarse breath sounds Abdomen: soft, nontender, nondistended, positive bowel sounds Extremities: no cyanosis or clubbing; trace edema Skin: no rash Objective Data Vital Signs Vital Signs: Vital Signs Temp Pulse Resp BP Pulse Ox O2 Del Method O2 Flow Rate 06/24/25 10:56 98.4 F 47 L 14 182/57 H 93 06/24/25 10:00 53 L 06/24/25 08:40 55 L 06/24/25 08:00 67 06/24/25 08:00 67 26 H 93 High Flow Nasal Cannula 2 06/24/25 08:00 197/41 H 06/24/25 08:00 208/32 H 06/24/25 08:00 98.4 F 67 26 H 207/32 H 93 11/25 07:44 96 High Flow Nasal Cannula 2 06/24/25 06:00 45 L 06/24/25 04:00 45 L 06/24/25 03:45 97.8 F 49 L 20 182/42 H 91 06/24/25 02:00 49 L 06/24/25 00:00 52 L 06/23/25 23:46 99.2 F 55 L 20 148/40 H 92 06/23/25 22:53 60 92 CPAP 6 06/23/25 22:53 60 92 CPAP 06/23/25 22:00 55 L 06/23/25 20:41 57 L 91 High Flow Nasal Cannula 2 06/23/25 20:00 61 06/23/25 20:00 98.7 F 54 L 20 168/43 H 94 Intake/Output Intake/Output: Intake & Output 06/21/25 06/22/25 06/23/25 06/24/25 23:59 23:59 23:59 23:59 Intake Total 1330.3 1389.2 2110.0 698 Output Total 1908 044 0017 Balance -69.7 1039.2 1060.0 698 Meds/Results Medications: Active Medications Generic Name Dose Route Start Last Admin Trade Name Freq PRN Reason Stop Dose Admin Acetaminophen 1,000 mg 06/19/25 22:44 06/22/25 21:13 Acetaminophen 500 Mg Tablet PO 1,000 mg TID PRN Administration Mild Pain (1-3) or Fever Allopurinol 100 mg 06/23/25 09:00 06/24/25 08:39 Allopurinol 100 Mg Tablet PO 100 mg Q48HR DAVID Administration Apixaban 2.5 mg 06/23/25 21:00 06/24/25 08:40 Apixaban 2.5 Mg Tablet PO 2.5 mg Q12HR DAVID Administration Aspirin 81 mg 06/20/25 09:00 06/24/25 08:40 Aspirin 81 Mg Enteric Tablet PO 81 mg DAILY DAVID Administration Atorvastatin Calcium 80 mg 06/20/25 09:55 06/24/25 08:38 Atorvastatin 40 Mg Tablet PO 80 mg DAILY DAVID Administration Dextrose 12.5 gm 06/19/25 21:30 Dextrose 50% 25 Gm/50 Ml Syringe IV PUSH PRN PRN Hypoglycemia Protocol Fluticasone Propionate 1 spray 06/20/25 09:00 06/24/25 08:40 Fluticasone Propionate 0.05% Na Spr 16 Gm Btl (*Bkc) NASAL 1 spray Q12H DAVID Administration Fluticasone/Umeclidinium/Vilanterol 1 puff 06/20/25 09:00 06/24/25 07:44 Fluticasone/Umeclidin/Vilanter 100-62.5-25 Mcg Ellipta INHALATION 1 puff Q24H DAVID Administration Glucose 15 gm 06/19/25 21:30 Glucose Oral Gel 15 Gm Of Glucse In 37.5 Gm Tube PO PRN PRN Hypoglycemia Protocol Guaifenesin 1,200 mg 06/22/25 09:20 06/24/25 08:38 Guaifenesin 12 Hr 600 Mg Tabcr PO 1,200 mg Q12HR DAVID Administration Hydralazine HCl 100 mg 06/22/25 17:00 06/24/25 16:19 Hydralazine Hcl 50 Mg Tablet PO 100 mg QID DAVID Administration Hydrochlorothiazide 12.5 mg 06/20/25 09:50 06/24/25 08:39 Hydrochlorothiazide 12.5 Mg Capsule PO 12.5 mg DAILY DAVID Administration Dextrose 1,000 mls @ 100 mls/hr 06/19/25 21:30 Dextrose 5% 1,000 Ml IVPB PRN PRN Hypoglycemia Protocol Ceftriaxone Sodium 1 gm/ 50 mls @ 100 mls/hr 06/22/25 09:00 06/24/25 08:38 Sodium Chloride IVPB 100 mls/hr Q24H DAVID Administration Levofloxacin/Dextrose 750 mg in 150 mls @ 100 mls/hr 06/22/25 09:00 06/24/25 08:40 Levaquin 750 Mg/D5w 150 Ml IVPB 100 mls/hr Q48HR DAVID Administration Insulin Aspart 2 - 5 units 06/20/25 08:00 06/24/25 16:38 Insulin Aspart (*Bkc) 100 Units/Ml SUB-Q Not Given TIDWM DAVID Protocol Insulin Aspart 1 - 2 units 06/20/25 21:00 06/23/25 21:12 Insulin Aspart (*Bkc) 100 Units/Ml SUB-Q 1 units HS DAVID Administration Protocol Isosorbide Mononitrate 60 mg 06/20/25 09:50 06/24/25 08:41 Isosorbide Mononitrate 60 Mg Tab.Er.24h PO 60 mg DAILY DAVID Administration Levalbuterol HCl 0.63 mg 06/21/25 19:41 06/24/25 16:41 Levalbuterol Neb 1.25 Mg/3 Ml INHALATION 0.63 mg Q6HRT PRN Administration shortness of breath Levothyroxine Sodium 100 mcg 06/21/25 06:30 06/24/25 06:14 Levothyroxine Sodium 100 Mcg Tablet PO 100 mcg DAILY@0630 DAVID Administration Losartan Potassium 100 mg 06/20/25 09:00 06/22/25 09:16 Losartan Potassium 100 Mg Tablet PO 100 mg On Hold: 06/22/25 15:20 DAILY DAVID Administration Sotalol HCl 40 mg 06/21/25 09:00 06/24/25 08:40 Sotalol Hcl 40 Mg Tablet PO 40 mg DAILY DAVID Administration Radiology Results: ITS Impressions Pulmonary Perfusion Imaging 06/21/25 11:25 IMPRESSION: No compelling or large segmental size areas of mismatch, and with right base findings on today's chest x-ray, the perfusion mismatch in the right base is of uncertain significance. Per PIOPED criteria, this is an indeterminate INTERMEDIATE probability for pulmonary embolus. Renal Ultrasound 06/21/25 13:56 IMPRESSION: 1. Normal kidneys without hydronephrosis. Chest CT 06/21/25 14:30 IMPRESSION: 1. Bibasilar consolidations likely associated with aspiration versus community- acquired pneumonia. Mucoid appearing changes in the bronchi endotracheal air column support aspiration. Findings should be followed radiographically until clear. 2. Other chronic appearing findings. Chest X-Ray 06/22/25 07:45 IMPRESSION: 1. Stable to mildly improved appearance of interstitial/vascular markings. Labs Labs: Laboratory Tests 06/24/25 05:47 06/24/25 05:47 Calcium 8.7 Magnesium 2.5 H Total Bilirubin 0.5 AST 30 ALT 24 Alkaline Phosphatase 80 Total Creatine Kinase 43 Total Protein 5.8 L Albumin 3.0 L Microbiology 06/22/25 08:05 Blood Blood Culture - Preliminary 06/22/25 07:56 Blood Blood Culture - Preliminary
--- NOTE | 2025-06-24 11:43 | PC.NURSE ---
Reported to high blood pressures this morning at approximately 0800, in the right and left arm. Left arm 207/32, 208/32 and in the right arm 197/41. Patient had not yet received any medications. This RN at the bedside to give meds at this time.
--- NOTE | 2025-06-24 15:03 | HOMEO2EVAL ---
Evaluation was performed at [facility] Home Oxygen Evaluation RC: Home Oxygen (O2) Evaluation Start: 06/24/25 10:51 Freq: ONCE Status: Active Protocol: RPE Activity Type Activity Date Activity User E-sign Co-sign Detail Recorded Client Recorded Date Recorded By Document 06/24/25 14:15 GUERLINE [email or web address] 06/24/25 15:03 GUERLINE Document 06/24/25 14:16 GUERLINE [email or web address] 06/24/25 15:03 GUERLINE Document 06/24/25 14:19 GUERLINE [email or web address] 06/24/25 15:03 GUERLINE Document 06/24/25 14:20 GUERLINE [email or web address] 06/24/25 15:03 GUERLINE Document 06/24/25 14:21 GUERLINE [email or web address] 06/24/25 15:03 GUERLINE Document 06/24/25 14:30 GUERLINE [email or web address] 06/24/25 15:03 GUERLINE 06/24/25 06/24/25 06/24/25 14:15 14:16 14:19 Home O2 Evaluation [Oxygen] -Test Phase Resting Resting Exercise -Oxygen Delivery Room Air Nasal Cannula Nasal Cannula -Oxygen Flow Rate (L/min) 1 1 [Pulse Oximetry] -Pulse Oximetry (90-100 %) 87 L 91 87 L [Pulse Rate] -Pulse Rate (60-100 beats/min) 70 [Comments] -Home Oxygen Evaluation Comments [Charges] -Evaluation Charges O2 Evaluation by Pulmonary 06/24/25 06/24/25 06/24/25 14:20 14:21 14:30 Home O2 Evaluation [Oxygen] -Test Phase Exercise Exercise Resting -Oxygen Delivery Nasal Cannula Nasal Cannula Nasal Cannula -Oxygen Flow Rate (L/min) 2 3 1 [Pulse Oximetry] -Pulse Oximetry (90-100 %) 88 L 92 92 [Pulse Rate] -Pulse Rate (60-100 beats/min) 90 76 [Comments] -Home Oxygen Evaluation Comments HOME O2 AT 1 LITER RESTING AND 3 LITERS WITH ACTIVITY [Charges] -Evaluation Charges
[2025-06-24] MEDS: INSULIN ASPART (*BKC) 100 UNITS/ML SUB-Q (21:34)
[2025-06-24] MEDS: FLUCONAZOLE 150 MG TABLET PO (23:20)
[2025-06-25] VITALS (20 sets, daily range): BP systolic 130–171; BP diastolic 41–83; PULSE 47–63; RESP 16–24; TEMP 35.9–37; O2SAT 90–95
[2025-06-25 04:42] LABS: Hematocrit 31.9 % (37.0-47.0); Hemoglobin 10.5 g/dL (12.0-15.0); Immature Granulocyte Percent A 0.5 % (0-0.5); Lymphocytes Absolute Auto 2.44 K/mm3 (0.9-3.2); Mean Corpuscular HGB Conc 32.9 g/dl (32-36); Mean Corpuscular Hemoglobin 32.9 pg (26-34); Mean Corpuscular Volume 100.0 fl (80-100); Nucleated Red Blood Cells Absolute Auto 0.000 K/mm3 (0.0-0.012); Nucleated Red Blood Cells Perc 0.0 % (0.0-0.2); Platelet Count Result 170 k/mm3 (150-375); Red Blood Count 3.19 M/mm3 (4.2-5.4); White Blood Count 9.3 K/mm3 (4.5-10.0)
[2025-06-25 05:11] LABS: Alanine Aminotransferase 29 U/L (6-35); Albumin Level 3.1 g/dL (3.5-5.1); Alkaline Phosphatase 78 U/L (38-126); Anion Gap 5 mmol/L (4-12); Aspartate Amino Transferase 36 U/L (14-36); Bilirubin,Total 0.6 mg/dL (0.2-1.3); Blood Urea Nitrogen 66 mg/dL (7-17); Calcium 8.4 mg/dL (8.4-10.2); Carbon Dioxide 21 mmol/L (22-30); Chloride 105 mmol/L (98-107); Estimated CRCL calculation 20 ml/min; Estimated Glomerular Filt Rate 20; Glucose 148 mg/dL (65-110); Magnesium 2.4 mg/dL (1.6-2.3); Potassium 4.4 mmol/L (3.4-5.0); Sodium 131 mmol/L (137-145); Total Protein 5.8 g/dL (6.3-8.2)
[2025-06-25] MEDS: LEVOTHYROXINE SODIUM 100 MCG TABLET PO (06:44)
[2025-06-25] MEDS: FLUTICASONE/UMECLIDIN/VILANTER 100-62.5-25 MCG ELLIPTA 1 PUFF INHALATION (07:38)
[2025-06-25] MEDS: ISOSORBIDE MONONITRATE 60 MG TAB.ER.24H PO (09:15)
[2025-06-25] MEDS: guaiFENesin 12 HR 600 MG TABCR 1200 MG PO ×2 (09:16→20:35)
[2025-06-25] MEDS: ATORVASTATIN 40 MG TABLET 80 MG PO (09:16)
[2025-06-25] MEDS: APIXABAN 2.5 MG TABLET PO (09:16)
[2025-06-25] MEDS: ASPIRIN 81 MG ENTERIC TABLET PO (09:17)
[2025-06-25] MEDS: cefTRIAXone 1 GM in SODIUM CHLORIDE 0.9% IV 50 ML 100 ML IVPB (09:19)
--- NOTE | 2025-06-25 09:21 | PM.PNPUL ---
Progress Note: A&P Assessment and Plan (1) COPD (chronic obstructive pulmonary disease): Code(s): J44.9 - Chronic obstructive pulmonary disease, unspecified Status: Acute Assessment and Plan: Regarding her COPD the patient tells me she did PFTs at [facility] 4-5 years ago and they told her she had a little bit of COPD. Patient had a CT scan of the chest in our system on 05/10/2020 with very mild apical predominant centrilobular emphysema. Her last CT scan low-dose on 09/13/2024 showed mild apical predominant centrilobular emphysema with no concerning masses or nodules. I have no PFTs. She has been maintained on inhalers. She wears no oxygen at home and a few months ago when she checked her pulse oximetry is 94-95%. Few months ago when she was feeling well she had 2 block limitation in her activity due to leg pain and back pain not dyspnea on exertion. At baseline she has no chronic cough, she produces phlegm 1 to 2 times a day and has no hemoptysis. Patient smoked tobacco from [id number] at half a pack a day for a total of 30 pack years. Patient was exposed to secondhand smoke from her father and after she moved out of her father's house she has lived with smokers all her life. Patient smokes marijuana 2-3 inhalations a day for the last 10 years and quit in May of 2025. Patient denies vaping, illicit drug use. 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 Current illness started on 06/17 where she had minimal shortness of breath with no cough, fever. She did have slightly more phlegm than usual with no hemoptysis. On 06/18 she noticed that her heart was racing and then her shortness of breath got much worse and she presented to the emergency department on 06/19/2025. She complained of worsening shortness of breath. EMS had given her DuoNebs x2 and Solu-Medrol. In the emergency department her heart rate was irregularly irregular at a heart rate of 157. Blood pressure was 162/73, respirations were 26 and a room air saturations were 94%. She was afebrile. Her lungs were clear to auscultation. Her white blood cell count was 9.6 with 0.6% eosinophils, her creatinine was 2.26, serum bicarb was 20, her chest x-ray showed congestion. Patient was treated for dehydration with 1 L IV fluid, IV diltiazem, IV heparin, ceftriaxone and doxycycline. It was felt she was not having a COPD exacerbation and steroids were discontinued. It was felt that she did not have a infection and her antibiotics were discontinued. 06/20/2025: Patient had an echocardiogram with an LVEF 65-70%. Severely enlarged left atrium, mild mitral regurg, mild tricuspid regurg with a PASP of 63. Normal RV size and function. Normal right atrial size. Mild mitral stenosis. 06/21/2025: Patient tells me she is breathing normal today. She denies phlegm or hemoptysis. Her cough is at her baseline. When I enter the room she was on Vapotherm with 45 L and 55% FiO2 with saturations 95%. I changed her to 15 L nasal cannula and sequentially decreased her to 8 L nasal cannula with saturations 91%. She felt better on the nasal cannula. She is afebrile. White blood cell count is 12.3, creatinine is 2.13, BNP is 6060. Free T4 is 1.37. Chest x-ray shows congestion. ABG on 8 L nasal cannula 7.40/35/59. Plan: I do not believe patient has having a COPD exacerbation, bronchitis or pneumonia. She does have hypoxemic respiratory failure without hypercarbic respiratory failure. I will continue her trelegy 100 which contains an muscarinic antagonist and I will therefore discontinue her nebulized ipratropium. Goal saturation 90-94%. Patient has hypoxic respiratory failure somewhat out of proportion to her imaging and I will obtain echo with bubble study today. Later in the day patient had a V/Q scan with no large subsegmental areas of mismatch perfusion mismatch in the right base correlates with x-ray findings overall intermediate study and no evidence of chronic thromboembolic disease. Later in the day patient had a CT chest with bibasilar dependent consolidations with some endobronchial mucus changes consistent with atelectasis or pneumonia, mild apical predominant centrilobular emphysema trace pleural effusions. Later in the day patient had a bubble study which demonstrated a couple of bubbles in the left side after 4-5 seconds suggesting of either a tiny patent foramen ovale or transpulmonary bubbles. 06/22/25: patient tells me she is better today. She states she is 80% back to her normal. She has no rest shortness of breath and has not been out of bed. She has having nose bleeds. She has cough with phlegm. When I enter the room she was on 10 L nasal cannula with saturations 96%. I suppose sequentially decreased her to 5 L and her saturations were 91%. Patient had a fever yesterday at 37.9. White blood cell count 9.4, creatinine 2.23, procalcitonin 0.1. PTT 87.9, Plan: patient with a fever last night, minimal cough but with some congestion, CT scan with basilar dependent consolidations with mucus. I will treat the patient for pneumonia. Blood cultures, nasal swab for MRSA, respiratory pathogen panel, mycoplasma IgM, urine Legionella antigen, urine pneumococcal antigen have been ordered. After blood cultures will initiate ceftriaxone 1 g Q 24 and Levaquin 750 mg Q 48 hours. I do not feel there is a COPD exacerbation with continue her trelegy 100. Goal saturation 90-94%, wean oxygen accordingly. I will add guaifenesin 1200 mg p.o. b.i.d. as she has phlegm that is difficult to expectorate. Given the likely dependent atelectasis I will start EzPAP. 06/23/2025: Patient continues to improve. She tells me is breathing normally at rest. She has no dyspnea on exertion walking from the bed to the chair. Her cough is normal. Her phlegm continues but it has improved. Phlegm color is brown. When I enter the room she was on 5 L nasal cannula with saturations 92%. I weaned her to room air and after 11 minutes her saturations were 90%. She is afebrile. White blood cell count 8.5, creatinine 2.15, BUN 64, PTT 176. BNP has improved from 6060 on 06/21/2025 to 3190 today. yesterday she was positive 1 L. Cumulative she is positive 2.9 L. Her weight today is 94 kg. Plan: patient feels improved today. I will continue treatment for pneumonia. Blood cultures, nasal swab for MRSA, respiratory pathogen panel, mycoplasma IgM, urine Legionella antigen, urine pneumococcal antigen pending. continue ceftriaxone 1 g Q 24 and Levaquin 750 mg Q 48 hours. I do not feel there is a COPD exacerbation with continue her trelegy 100. Goal saturation 90-94%, wean oxygen accordingly and I weaned her to room air currently. Continue guaifenesin 1200 mg p.o. b.i.d. as she has phlegm that is difficult to expectorate. continue EzPAP. 06/24/2025: Patient tells me she continues to improve. She is breathing normally at rest. Her dyspnea on exertion when walking in the room to the doorway and bathroom is normal for her. Her cough is improved but persistent. Her phlegm production is brown but clearing. When I enter the room the patient was on 2 L nasal cannula saturations 95%. Eight years her room air and her saturations were 92%. She is afebrile. White blood cell count 8.4, creatinine 2.23, BUN 65. GALINA screen is negative. Patient was 1.06 L positive yesterday, cumulative positive 3.9 L. Weight is 94 kg. Plan: I will continue treatment for possible pneumonia. Continue ceftriaxone and Levaquin, day 3 both, while she is in the hospital. Nasal swab for MRSA negative. Respiratory pathogen panel negative, serum mycoplasma IgM negative. Urine for pneumococcal and Legionella pending. Continue trelegy 100. Goal saturation 90-94%, wean oxygen accordingly and I weaned her to room air currently. Continue guaifenesin 1200 mg p.o. b.i.d. and EzPAP. Later in the day patient had a home O2 : Rest room air saturation 87%. Rest nasal cannula 1 L saturation 91%. Exercise nasal cannula 1 L saturation 87%. Exercise nasal cannula 2 L saturation 88%. Exercise nasal cannula 3 L saturation 92%. Patient requires 1 L at rest and 3 L with activity. 06/25/2025. Patient states she is breathing normal at rest. She has not ambulated this morning. Her cough is normal in her phlegm production is better and is more clear now. When I enter the room she was on 5 L nasal cannula with saturations 93%. I decreased her to 1 L but her saturations decreased to 88% and I placed her on 3 L with saturations 91%. White blood cell count 9.3, creatinine 2.37, BUN 66. I's and O's are not measured. Her weight today is 93 kg. Patient wore her CPAP 12 with 6 L bleed in and did well last night. From a pulmonary perspective patient is ready to be discharged on these pulmonary medications: Levaquin 750 mg p.o. q.d. 48 hours to finish a 7 day course. Trelegy 100-62.5-25 at 1 puff q.day. Rescue albuterol 2 puffs q.4 hours p.r.n. shortness of breath or wheezing. Flonase 1 spray each nostril q.12 hours. Guaifenesin 600 mg p.o. b.i.d. p.r.n. congestion. Flutter valve q.2 hours while awake. Oxygen: 1 L at rest and 3 L with activity. When she naps or sleeps: Through her [employer] company, [facility], CPAP 12 with 6 L bleed in. Patient to follow-up in the Pulmonary Clinic in 3-4 weeks. I gave her our business card and informed our contact lens edge buffer. Discussed with Dr. Jose, will sign off, call with questions. (2) Pulmonary hypertension: Code(s): I27.20 - Pulmonary hypertension, unspecified Status: Acute Assessment and Plan: Patient was admitted to [facility] with fluid overload and congestive heart failure from 12/26/2024 through 12/30/2024. During that hospitalization she had an echocardiogram on 12/28 that showed grade 3 diastolic dysfunction, moderate mitral regurg, moderate tricuspid regurg with a PASP of 70. LV EF was not stated in the discharge summary. Hydralazine was added to her regimen. ABG during that admission was 7.32/42/59 and the patient was started on BiPAP and moved to the ICU and eventually transitioned to CPAP. She was discharged home on oxygen and she wore this for 2-3 weeks. She was supposed to follow-up with pulmonary but has not done this. No mention of a COPD exacerbation in the discharge summary. 06/20/2025: Patient had an echocardiogram with an LVEF 65-70%. Severely enlarged left atrium, mild mitral regurg, mild tricuspid regurg with a PASP of 63. Normal RV size and function. Normal right atrial size. Mild mitral stenosis. Etiology of pulmonary hypertension includes: Idiopathic pulmonary arterial hypertension, pulmonary hypertension with heart failure with preserved LVEF, severe diastolic dysfunction, mitral stenosis, COPD, hypoxic respiratory failure, doubt chronic thromboembolic pulmonary hypertension. Plan: I will obtain V/Q scan of the chest today to assess for chronic thromboembolic pulmonary hypertension. BNP is elevated and chest x-ray with congestion likely related to AFib with RVR. Patient received Lasix 40 IV today. Cardiology is following to optimize her cardiac function and volume status. there is no evidence of COPD exacerbation will continue her maintenance inhalers. She has discontinued tobacco use. Patient was started on sotalol and dose will be decreased due to bradycardia. Later in the day patient had a V/Q scan with no large subsegmental areas of mismatch perfusion mismatch in the right base correlates with x-ray findings overall intermediate study and no evidence of chronic thromboembolic disease. Later in the day patient had a CT chest with bibasilar dependent consolidations with some endobronchial mucus changes consistent with atelectasis or pneumonia, mild apical predominant centrilobular emphysema trace pleural effusions. Later in the day patient had a bubble study which demonstrated a couple of bubbles in the left side after 4-5 seconds suggesting of either a tiny patent foramen ovale or transpulmonary bubbles. 06/21/25: Overall patient has improved with diuretics, management of blood pressure, management of atrial fibrillation with rapid ventricular response. She improved prior to initiation of treatment for possible pneumonia which was started today. Yesterday she was -70 mL, cumulative she is positive 1.2 L since admission. Her weight today is 93.7. Chest x-ray today with minimally improved congestion. Plan: cardiac medications are being managed by boots and shoes supervisor and hospitalist team. Currently she is on amlodipine 10, hydrochlorothiazide 12.5, losartan 100 q.day, Imdur 60 q.day, hydralazine 75 p.o. q.i.d. and sotalol 40 q.day. she is on IV heparin and aspirin 81. continued new treatment for hypoxemic respiratory failure, COPD and pneumonia as above. Minimal [id number]-di-bjia shunt after 4-5 seconds suggesting intrapulmonary shunt may be contributing to hypoxemic respiratory failure. Last night the patient wore the hospital CPAP 12 with 50% FiO2 and decrease to 40% FiO2 throughout the night. She said the machine was not as comfortable as her home machine but she did get minimal sleep. 06/23/25: cardiac medicines managed by boots and shoes supervisor and hospitalist team. Hydralazine has been increased. Plan: Will continue management of COPD, possible pneumonia and obstructive sleep apnea as detailed in the note. Patient wore her home machine with a full face mask with 4 L bleed in and said that the machine felt normal for her. She had an overnight oximetry with recording duration of 7 hours and 1 minutes. Average saturation 87%. Low saturation 85%. Time with saturation less than or equal to 88% was 354 minutes. Oxygen desaturation index 0. 06/24/25: from a respiratory status her COPD, possible pneumonia and obstructive sleep apnea are being treated adequately. Patient wore her home CPAP 12 with 6 L bleed in and said she slept well. Overnight oximetry with recording duration of 6 hours and 8 minutes could. Average saturation 92%. Low saturation 89%. Time with saturation less than or equal to 88% was 0 minutes. Oxygen desaturation index 0. Patient remains hypertensive despite 5 medications. Plan: CPAP 12 with 6 L bleed in provide adequate oxygenation, Continue treatment for COPD and possible pneumonia as described in the note. Renal ultrasound to assess for possible renal artery stenosis. My plan will be to treat her COPD, hypoxemic respiratory failure, pneumonia, atrial fibrillation, hypertension, congestive heart failure, mitral stenosis, and obstructive sleep apnea and repeat echocardiogram in 3 months as an outpatient. 06/25/25: Continue to treat COPD, hypoxic respiratory failure, possible pneumonia, AFib, hypertension, CHF, mitral stenosis and DENNIS and repeat echocardiogram in 3 months. (3) Sleep apnea: Qualifiers: Sleep apnea type: unspecified type Qualified Code(s): G47.30 - Sleep apnea, unspecified Code(s): G47.30 - Sleep apnea, unspecified Status: Acute Assessment and Plan: Regarding her obstructive sleep apnea she was diagnosed approximately 10 years ago with a sleep study. She does not remember where this sleep study was performed. She is on CPAP and does not know her settings. She does not wear oxygen with her CPAP. She does not know her DME company. She uses a fullface mask. She says she wears her mask regularly. 06/21/25: Last night the patient was placed on CPAP 10 and pressures were increased to CPAP 16. She says that she wore the mask last night and that these settings felt similar to her home settings. Plan: Patient believes her DME company may be [employer] and we will check with them for a download. I have told her to have her family bring in her CPAP machine so that we can verify her settings. If no verification will continue CPAP 16 as she said that this felt similar to her home settings. 06/22/25: Last night the patient wore the hospital CPAP 12 with 50% FiO2 and decrease to 40% FiO2 throughout the night. She said the machine was not as comfortable as her home machine but she did get minimal sleep. Plan: Patient tells me her family will bring in her home CPAP machine. We will then attempt to identify the company in get a download. If her home machine is brought in she will wear her home machine with 4 L bleed in. 06/23/25: Patient wore her home machine with a full face mask with 4 L bleed in and said that the machine felt normal for her. She had an overnight oximetry with recording duration of 7 hours and 1 minutes. Average saturation 87%. Low saturation 85%. Time with saturation less than or equal to 88% was 354 minutes. Oxygen desaturation index 0. Plan: I will attempt to obtain a download from her [employer] company [facility]. I will continue her current settings and perform an overnight oximetry with 6 L bleed in. 06/23/2025: Later in the day obtained a download from [employer] [facility] from 05/24/2025 2 06/22/2025. Patient is on CPAP 12. Usage days greater than or equal to 4 hours was 90%. Average usage on days used 11 hours and 33 minutes. AHI 0.5. Apnea index 0.5, hypopnea index 0.0, central apnea index 0.0. Median leak 5.6, 95th percentile leak 23.4, maximum leak 115.4. I interpret this download as good compliance, adequate pressures and moderate leak. 06/24/25: patient wearing her home CPAP 12 with 6 L bleed in and said she had a good night and slept well. Patient wore her home CPAP 12 with 6 L bleed in and said she slept well. Overnight oximetry with recording duration of 6 hours and 8 minutes could. Average saturation 92%. Low saturation 89%. Time with saturation less than or equal to 88% was 0 minutes. Oxygen desaturation index 0. Plan: Will continue CPAP 12 with 6 L bleed in. surgical services coordinator will check with her DME company, [employer] [facility], to make sure she has a 6 L oxygen flow concentrator in her mobile home. 06/25/25: Continue CPAP 12 with 6 L bleed in at home. Subjective Date/time seen: 06/25/25 09:21 Interval history: 06/21/2025: This is a new pulmonary consult for COPD and pulmonary hypertension. 75-year-old with a history of coronary artery disease status post stents in 2011, diabetes, hypertension, hyperlipidemia, CKD stage 3 to 4, DENNIS on CPAP for 10 years. Patient was admitted to [facility] with fluid overload and congestive heart failure from 12/26/2024 through 12/30/2024. During that hospitalization she had an echocardiogram on 12/28 that showed grade 3 diastolic dysfunction, moderate mitral regurg, moderate tricuspid regurg with a PASP of 70. LV EF was not stated in the discharge summary. Hydralazine was added to her regimen. ABG during that admission was 7.32/42/59 and the patient was started on BiPAP and moved to the ICU and eventually transitioned to CPAP. She was discharged home on oxygen and she wore this for 2-3 weeks. She was supposed to follow-up with pulmonary but has not done this. No mention of a COPD exacerbation in the discharge summary. Regarding her obstructive sleep apnea she was diagnosed approximately 10 years ago with a sleep study. She does not remember where this sleep study was performed. She is on CPAP and does not know her settings. She does not wear oxygen with her CPAP. She does not know her DME company. She uses a fullface mask. She says she wears her mask regularly. Regarding her COPD the patient tells me she did PFTs at [facility] 4-5 years ago and they told her she had a little bit of COPD. Patient had a CT scan of the chest in our system on 05/10/2020 with very mild apical predominant centrilobular emphysema. Her last CT scan low-dose on 09/13/2024 showed mild apical predominant centrilobular emphysema with no concerning masses or nodules. I have no PFTs. She has been maintained on inhalers. She wears no oxygen at home and a few months ago when she checked her pulse oximetry is 94-95%. Few months ago when she was feeling well she had 2 block limitation in her activity due to leg pain and back pain not dyspnea on exertion. At baseline she has no chronic cough, she produces phlegm 1 to 2 times a day and has no hemoptysis. Patient smoked tobacco from [id number] at half a pack a day for a total of 30 pack years. Patient was exposed to secondhand smoke from her father and after she moved out of her father's house she has lived with smokers all her life. Patient smokes marijuana 2-3 inhalations a day for the last 10 years and quit in May of 2025. Patient denies vaping, illicit drug use. 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 04/14/2025: Patient saw her store detective she weighed 196 lb. Her creatinine on 04/11/2025 was 1.58. 04/28/2025: Patient followed with her boots and shoes supervisor, Dr. Colón, she had 2 block dyspnea on exertion, her room air saturations were 92%. Her weight was 195 lb. Respiratory medicines include trelegy 100, albuterol p.r.n. and Flonase. Current illness started on 06/17 where she had minimal shortness of breath with no cough, fever. She did have slightly more phlegm than usual with no hemoptysis. On 06/18 she noticed that her heart was racing and then her shortness of breath got much worse and she presented to the emergency department on 06/19/2025. She complained of worsening shortness of breath. EMS had given her DuoNebs x2 and Solu-Medrol. In the emergency department her heart rate was irregularly irregular at a heart rate of 157. Blood pressure was 162/73, respirations were 26 and a room air saturations were 94%. She was afebrile. Her lungs were clear to auscultation. Her white blood cell count was 9.6 with 0.6% eosinophils, her creatinine was 2.26, serum bicarb was 20, her chest x-ray showed congestion. Patient was treated for dehydration with 1 L IV fluid, IV diltiazem, IV heparin, ceftriaxone and doxycycline. It was felt she was not having a COPD exacerbation and steroids were discontinued. It was felt that she did not have a infection and her antibiotics were discontinued. 06/20/2025: Patient had an echocardiogram with an LVEF 65-70%. Significant diastolic dysfunction with E/e' 48. Severely enlarged left atrium, mild mitral regurg, mild tricuspid regurg with a PASP of 63. Normal RV size and function. Normal right atrial size. Mild mitral stenosis. 06/21/2025: Patient tells me she is breathing normal today. She denies phlegm or hemoptysis. Her cough is at her baseline. When I enter the room she was on Vapotherm with 45 L and 55% FiO2 with saturations 95%. I changed her to 15 L nasal cannula and sequentially decreased her to 8 L nasal cannula with saturations 91%. She felt better on the nasal cannula. She is afebrile. White blood cell count is 12.3, creatinine is 2.13, BNP is 6060. Free T4 is 1.37. Chest x-ray shows congestion. ABG on 8 L nasal cannula 7.40/35/59. Last night the patient was placed on CPAP 10 and pressures were increased to CPAP 16. She says that she wore the mask last night and that these settings felt similar to her home settings. Later in the day patient had a V/Q scan with no large subsegmental areas of mismatch perfusion mismatch in the right base correlates with x-ray findings overall intermediate study and no evidence of chronic thromboembolic disease. Later in the day patient had a CT chest with bibasilar dependent consolidations with some endobronchial mucus changes consistent with atelectasis or pneumonia, mild apical predominant centrilobular emphysema trace pleural effusions. Later in the day patient had a bubble study which demonstrated a couple of bubbles in the left side after 4-5 seconds suggesting of either a tiny patent foramen ovale or transpulmonary bubbles. 06/22/25: patient tells me she is better today. She states she is 80% back to her normal. She has no rest shortness of breath and has not been out of bed. She has having nose bleeds. She has cough with phlegm. When I enter the room she was on 10 L nasal cannula with saturations 96%. I suppose sequentially decreased her to 5 L and her saturations were 91%. Patient had a fever yesterday at 37.9. White blood cell count 9.4, creatinine 2.23, procalcitonin 0.1.PTT 87.9, yesterday she was -70 mL, cumulative she is positive 1.2 L since admission. Her weight today is 93.7. Chest x-ray today with minimally improved congestion. Last night the patient wore the hospital CPAP 12 with 50% FiO2 and decrease to 40% FiO2 throughout the night. She said the machine was not as comfortable as her home machine but she did get minimal sleep. 06/23/2025: Patient continues to improve. She tells me is breathing normally at rest. She has no dyspnea on exertion walking from the bed to the chair. Her cough is normal. Her phlegm continues but it has improved. Phlegm color is brown. When I enter the room she was on 5 L nasal cannula with saturations 92%. I weaned her to room air and after 11 minutes her saturations were 90%. She is afebrile. White blood cell count 8.5, creatinine 2.15, BUN 64, PTT 176. BNP has improved from 6060 on 06/21/2025 to 3190 today. yesterday she was positive 1 L. Cumulative she is positive 2.9 L. Her weight today is 94 kg. Patient wore her home machine with a full face mask with 4 L bleed in and said that the machine felt normal for her. She had an overnight oximetry with recording duration of 7 hours and 1 minutes. Average saturation 87%. Low saturation 85%. Time with saturation less than or equal to 88% was 354 minutes. Oxygen desaturation index 0. 06/23/2025: Later in the day obtained a download from respiratory care from 05/24/2025 2 06/22/2025. Patient is on CPAP 12. Usage days greater than or equal to 4 hours was 90%. Average usage on days used 11 hours and 33 minutes. AHI 0.5. Apnea index 0.5, hypopnea index 0.0, central apnea index 0.0. Median leak 5.6, 95th percentile leak 23.4, maximum leak 115.4. I interpret this download as good compliance, adequate pressures and moderate leak. 06/24/2025: Patient tells me she continues to improve. She is breathing normally at rest. Her dyspnea on exertion when walking in the room to the doorway and bathroom is normal for her. Her cough is improved but persistent. Her phlegm production is brown but clearing. When I enter the room the patient was on 2 L nasal cannula saturations 95%. Eight years her room air and her saturations were 92%. She is afebrile. White blood cell count 8.4, creatinine 2.23, BUN 65. GALINA screen is negative. Patient was 1.06 L positive yesterday, cumulative positive 3.9 L. Weight is 94 kg. Patient wore her home CPAP 12 with 6 L bleed in and said she slept well. Overnight oximetry with recording duration of 6 hours and 8 minutes could. Average saturation 92%. Low saturation 89%. Time with saturation less than or equal to 88% was 0 minutes. Oxygen desaturation index 0. Later in the day patient had a home O2 : Rest room air saturation 87%. Rest nasal cannula 1 L saturation 91%. Exercise nasal cannula 1 L saturation 87%. Exercise nasal cannula 2 L saturation 88%. Exercise nasal cannula 3 L saturation 92%. Patient requires 1 L at rest and 3 L with activity. 06/25/2025. Patient states she is breathing normal at rest. She has not ambulated this morning. Her cough is normal in her phlegm production is better and is more clear now. When I enter the room she was on 5 L nasal cannula with saturations 93%. I decreased her to 1 L but her saturations decreased to 88% and I placed her on 3 L with saturations 91%. White blood cell count 9.3, creatinine 2.37, BUN 66. I's and O's are not measured. Her weight today is 93 kg. Patient wore her CPAP 12 with 6 L bleed in and did well last night. DATA: 06/21/25: EXAMINATION:CT diagnostic chest wo con INDICATION: Hypoxia COMPARISON: July 13, 2025 FINDINGS: Bibasilar consolidations with atelectatic changes have developed right worse than left. Trace bilateral pleural effusions. And the mainstem bronchi, streaky mucoid appearing changes are present. Tracheal air column as trace dependent secretions but no obvious mass. Heart and great vessels appear stable. Extensive coronary artery calcification. 10 mm nodule anterior right midlung image 57 series 4 is stable. Borderline pathologic sized mediastinal lymph nodes not clearly changed. Diffuse degenerative changes in the bones. IMPRESSION: 1. Bibasilar consolidations likely associated with aspiration versus community-acquired pneumonia. Mucoid appearing changes in the bronchi endotracheal air column support aspiration. Findings should be followed radiographically until clear. 2. Other chronic appearing findings. 06/21/25: Bubble study Summary 1. BUBBLE STUDY APPEARS POSITIVE IN BOTH CLIPS TOWARDS END. 2. Limited echocardiogram. 3. Left ventricular chamber dimension is normal. 4. Left ventricular systolic function is normal, estimated at 65-70. 5. The left ventricular diastolic function is indeterminate as it was not assessed. 6. Interatrial septum not well visualized by 2D and agitated saline imaging. 7. Agitated saline injection with and without valsalva maneuver opacified right side cardiac chambers with a couple of bubbles shunt to left side cardiac chambers after 4-5 seconds. This suggests either tiny patent foramen ovale or they are transpulmonary bubbles that made it through. 06/21/25: EXAM/PROCEDURE: NM lung vent and perfusion HISTORY: SOB, CP, afib rvr COMPARISON: Portable chest x-ray same day. RADIOISOTOPE: 22.9 mCi xenon used for the ventilatory portion of today's exam. Perfusion scan was performed using 5.5 mCi technetium 99m microaggregated albumin. FINDINGS: Prominent area of photopenia corresponding to the heart shadow consistent with cardiomegaly. Obscuration of the right lung base on recent radiograph, corresponds to possible segmental size area of mismatch in the right lung base, although findings are complicated due to radiographic findings. IMPRESSION: No compelling or large segmental size areas of mismatch, and with right base findings on today's chest x-ray, the perfusion mismatch in the right base is of uncertain significance. Per PIOPED criteria, this is an indeterminate INTERMEDIATE probability for pulmonary embolus. 06/20/25: Echo Summary 1. Definity contrast administered improved wall motion interpretation. 2. Left ventricular chamber dimension is normal. 3. Left ventricular systolic function is normal, estimated at 65-70. 4. There is moderate concentric increased left ventricular wall thickness. 5. E/e' 48 is significantly elevated. 6. Left atrial chamber dimension is severely enlarged. 7. The mitral valve has moderately calcified leaflets and a moderately calcified annulus. 8. There is mild mitral valve regurgitation. 9. There is mild tricuspid valve regurgitation. 10. Severe pulmonary hypertension, estimated pulmonary arterial systolic pressure is 63 mmHg. 11. Dilated inferior vena cava with >50% collapse upon inspiration consistent with elevated right atrial pressure, 10 mmHg. Right Ventricle Right ventricular chamber dimension is normal. Right ventricular systolic function is normal and with normal TAPSE 2.3 cm. Left Atria Left atrial chamber dimension is severely enlarged. Right Atria Right atrial chamber dimension is normal. Mitral Valve The mitral valve has moderately calcified leaflets and a moderately calcified annulus. There is mild mitral valve stenosis with valve area of 1.9 cm2. There is mild mitral valve regurgitation. 09/13/24: EXAMINATION:CT lung screening INDICATION: Personal history of nicotine dependence. Current smoker with 56 pack year history. COMPARISON: Chest CT 09/10/2023 FINDINGS: There is mild emphysema. There is a 3 mm nodule in right upper lobe. There is a 7 mm nodule at minor fissure without change. Calcified pulmonary nodules and calcified hilar and mediastinal lymph nodes are consistent with old granulomatous disease. There is mild atelectasis bilaterally. No pleural effusion. Cardiomegaly is noted. There are coronary artery calcifications. No pericardial effusion. There are changes of cholecystectomy. There is severe thoracic spondylosis. IMPRESSION: 1. Lung-RADS category 2: Benign appearance or behavior. Continue annual screening with noncontrast low-dose chest CT in 12 months. Review of Systems Constitutional: Constitutional: Reports no additional constitutional complaints Eyes: Eyes: Reports no additional eye complaints ENT: Reports system reviewed and no additional complaints, except as documented Cardiovascular: Cardiovascular: Reports no additional cardiovascular complaints Respiratory: Respiratory: Reports no additional respiratory complaints Gastrointestinal: Gastrointestinal: Reports no additional gastrointestinal complaints Musculoskeletal: Musculoskeletal: Reports no additional musculoskeletal complaints Neurologic: Reports system reviewed and no additional complaints, except as documented Psychiatric: Psychiatric: Reports no additional psychiatric complaints Endocrine: Endocrine: Reports no additional endocrine complaints Hematologic/Lymphatic: Hematologic/Lymphatic: Reports no additional hematologic/lymphatic complaints Allergic/Immunologic: Allergic/Immunologic: Reports no additional allergic/immunologic complaints Exam Const: General: cooperative, healthy appearing and comfortable Orientation/consciousness: oriented to person, oriented to place and oriented to time HENMT: Head: normal to inspection Ears: hearing grossly normal bilaterally Eyes: General: appearance normal, both eyes and all related structures Neck: Neck: normal visual inspection Chest: Chest palpation & inspection: normal inspection of the chest Resp: Effort & Inspection: normal respiratory effort and able to speak in complete sentences Auscultation: crackles, no rales, no rhonchi, no wheezes and lung sounds not diminished Other: Few crackles at the base. Cardio: Jugular venous distension: no JVD GI: Inspection: normal to inspection Skin: General skin exam: normal color Neuro: General: oriented to person, oriented to place and oriented to time Extrem: General: normal to inspection and no edema Psych: Appearance: grossly normal Objective Data Vital Signs Vital Signs: Vital Signs - 24 hr 06/24/25 10:00 06/24/25 11:56 06/24/25 11:56 Temperature 36.9 C Pulse Rate 53 L 47 L Respiratory Rate 14 Blood Pressure 182/57 H 186/45 H Pulse Oximetry 93 Oxygen Delivery Oxygen Flow Rate Fraction of Inspired Oxygen 06/24/25 12:00 06/24/25 12:00 06/24/25 14:00 Temperature Pulse Rate 62 62 58 L Respiratory Rate 14 Blood Pressure Pulse Oximetry 93 Oxygen Delivery High Flow Nasal Cannula Oxygen Flow Rate 2 Fraction of Inspired Oxygen 55 06/24/25 14:15 06/24/25 14:16 06/24/25 14:19 Temperature Pulse Rate 70 Respiratory Rate Blood Pressure Pulse Oximetry 87 L 91 87 L Oxygen Delivery Room Air Nasal Cannula Nasal Cannula Oxygen Flow Rate 1 1 Fraction of Inspired Oxygen 06/24/25 14:20 06/24/25 14:21 06/24/25 14:30 Temperature Pulse Rate 90 76 Respiratory Rate Blood Pressure Pulse Oximetry 88 L 92 92 Oxygen Delivery Nasal Cannula Nasal Cannula Nasal Cannula Oxygen Flow Rate 2 3 1 Fraction of Inspired Oxygen 06/24/25 16:00 06/24/25 16:00 06/24/25 16:00 Temperature 36.8 C Pulse Rate 54 L 70 Respiratory Rate 22 H Blood Pressure 197/43 H 186/43 H Pulse Oximetry 92 Oxygen Delivery Oxygen Flow Rate Fraction of Inspired Oxygen 06/24/25 16:00 06/24/25 16:40 06/24/25 16:48 Temperature Pulse Rate 70 51 L 51 L Respiratory Rate 16 16 16 Blood Pressure Pulse Oximetry 92 Oxygen Delivery Nasal Cannula Oxygen Flow Rate 2 Fraction of Inspired Oxygen 55 06/24/25 18:00 06/24/25 19:36 06/24/25 20:00 Temperature Pulse Rate 58 L Respiratory Rate Blood Pressure Pulse Oximetry 92 98 Oxygen Delivery Nasal Cannula Nasal Cannula Oxygen Flow Rate 3 2 Fraction of Inspired Oxygen 06/24/25 20:00 06/24/25 20:34 06/24/25 22:00 Temperature 36.9 C Pulse Rate 53 L 54 L 52 L Respiratory Rate 21 H Blood Pressure 198/33 H Pulse Oximetry 93 Oxygen Delivery Oxygen Flow Rate Fraction of Inspired Oxygen 06/25/25 00:00 06/25/25 00:00 06/25/25 00:00 Temperature 35.9 C L Pulse Rate 54 L 49 L Respiratory Rate 20 Blood Pressure 157/47 H Pulse Oximetry 90 90 Oxygen Delivery CPAP Oxygen Flow Rate Fraction of Inspired Oxygen 06/25/25 00:51 06/25/25 02:00 06/25/25 02:00 Temperature Pulse Rate 53 L 54 L 47 L Respiratory Rate Blood Pressure Pulse Oximetry 92 93 Oxygen Delivery CPAP CPAP Oxygen Flow Rate Fraction of Inspired Oxygen 06/25/25 04:00 06/25/25 04:00 06/25/25 04:00 Temperature 36.2 C L Pulse Rate 48 L 52 L Respiratory Rate 20 Blood Pressure 130/83 Pulse Oximetry 94 94 Oxygen Delivery CPAP Oxygen Flow Rate Fraction of Inspired Oxygen 06/25/25 06:00 06/25/25 07:40 06/25/25 07:40 Temperature Pulse Rate 50 L 53 L Respiratory Rate 18 Blood Pressure Pulse Oximetry Oxygen Delivery CPAP Oxygen Flow Rate Fraction of Inspired Oxygen 06/25/25 07:41 06/25/25 07:42 06/25/25 08:00 Temperature 36.3 C L Pulse Rate 53 L 51 L Respiratory Rate 18 18 Blood Pressure 154/52 H Pulse Oximetry 93 92 Oxygen Delivery High Flow Therapy with Na Oxygen Flow Rate 5 Fraction of Inspired Oxygen Intake/Output Intake/Output: Intake & Output 06/22/25 06/23/25 06/24/25 06/25/25 23:59 23:59 23:59 23:59 Intake Total 1389.2 2110.0 1238 Output Total 350 1050 Balance 1039.2 1060.0 1238 Meds/Results Medications: Active Medications Generic Name Dose Route Start Last Admin Trade Name Freq PRN Reason Stop Dose Admin Acetaminophen 1,000 mg 06/19/25 22:44 06/22/25 21:13 Acetaminophen 500 Mg Tablet PO 1,000 mg TID PRN Administration Mild Pain (1-3) or Fever Allopurinol 100 mg 06/23/25 09:00 06/24/25 08:39 Allopurinol 100 Mg Tablet PO 100 mg Q48HR DAVID Administration Apixaban 2.5 mg 06/23/25 21:00 06/24/25 20:19 Apixaban 2.5 Mg Tablet PO 2.5 mg Q12HR DAVID Administration Aspirin 81 mg 06/20/25 09:00 06/24/25 08:40 Aspirin 81 Mg Enteric Tablet PO 81 mg DAILY DAVID Administration Atorvastatin Calcium 80 mg 06/20/25 09:55 06/24/25 08:38 Atorvastatin 40 Mg Tablet PO 80 mg DAILY DAVID Administration Dextrose 12.5 gm 06/19/25 21:30 Dextrose 50% 25 Gm/50 Ml Syringe IV PUSH PRN PRN Hypoglycemia Protocol Fluticasone Propionate 1 spray 06/20/25 09:00 06/24/25 20:19 Fluticasone Propionate 0.05% Na Spr 16 Gm Btl (*Bkc) NASAL 1 spray Q12H DAVID Administration Fluticasone/Umeclidinium/Vilanterol 1 puff 06/20/25 09:00 06/25/25 07:38 Fluticasone/Umeclidin/Vilanter 100-62.5-25 Mcg Ellipta INHALATION 1 puff Q24H DAVID Administration Glucose 15 gm 06/19/25 21:30 Glucose Oral Gel 15 Gm Of Glucse In 37.5 Gm Tube PO PRN PRN Hypoglycemia Protocol Guaifenesin 1,200 mg 06/22/25 09:20 06/24/25 20:19 Guaifenesin 12 Hr 600 Mg Tabcr PO 1,200 mg Q12HR DAVID Administration Hydralazine HCl 100 mg 06/22/25 17:00 06/24/25 20:19 Hydralazine Hcl 50 Mg Tablet PO 100 mg QID DAVID Administration Hydrochlorothiazide 12.5 mg 06/20/25 09:50 06/24/25 08:39 Hydrochlorothiazide 12.5 Mg Capsule PO 12.5 mg DAILY DAVID Administration Dextrose 1,000 mls @ 100 mls/hr 06/19/25 21:30 Dextrose 5% 1,000 Ml IVPB PRN PRN Hypoglycemia Protocol Ceftriaxone Sodium 1 gm/ 50 mls @ 100 mls/hr 06/22/25 09:00 06/24/25 09:21 Sodium Chloride IVPB Infused Q24H DAVID Infusion Levofloxacin/Dextrose 750 mg in 150 mls @ 100 mls/hr 06/22/25 09:00 06/24/25 08:40 Levaquin 750 Mg/D5w 150 Ml IVPB 100 mls/hr Q48HR DAVID Administration Insulin Aspart 2 - 5 units 06/20/25 08:00 06/24/25 16:38 Insulin Aspart (*Bkc) 100 Units/Ml SUB-Q Not Given TIDWM DAVID Protocol Insulin Aspart 1 - 2 units 06/20/25 21:00 06/24/25 21:34 Insulin Aspart (*Bkc) 100 Units/Ml SUB-Q 1 units HS DAVID Administration Protocol Isosorbide Mononitrate 60 mg 06/20/25 09:50 06/24/25 08:41 Isosorbide Mononitrate 60 Mg Tab.Er.24h PO 60 mg DAILY DAVID Administration Levalbuterol HCl 0.63 mg 06/21/25 19:41 06/24/25 16:41 Levalbuterol Neb 1.25 Mg/3 Ml INHALATION 0.63 mg Q6HRT PRN Administration shortness of breath Levothyroxine Sodium 100 mcg 06/21/25 06:30 06/25/25 06:44 Levothyroxine Sodium 100 Mcg Tablet PO 100 mcg DAILY@0630 DAVID Administration Losartan Potassium 100 mg 06/20/25 09:00 06/22/25 09:16 Losartan Potassium 100 Mg Tablet PO 100 mg On Hold: 06/22/25 15:20 DAILY DAVID Administration Nifedipine 30 mg 06/24/25 18:10 06/24/25 20:19 Nifedipine 30 Mg Tab.Er.24 PO 30 mg BID DAVID Administration Sotalol HCl 40 mg 06/21/25 09:00 06/24/25 08:40 Sotalol Hcl 40 Mg Tablet PO 40 mg DAILY DAVID Administration Radiology Results: ITS Impressions Pulmonary Perfusion Imaging 06/21/25 11:25 IMPRESSION: No compelling or large segmental size areas of mismatch, and with right base findings on today's chest x-ray, the perfusion mismatch in the right base is of uncertain significance. Per PIOPED criteria, this is an indeterminate INTERMEDIATE probability for pulmonary embolus. Renal Ultrasound 06/21/25 13:56 IMPRESSION: 1. Normal kidneys without hydronephrosis. Chest CT 06/21/25 14:30 IMPRESSION: 1. Bibasilar consolidations likely associated with aspiration versus community-acquired pneumonia. Mucoid appearing changes in the bronchi endotracheal air column support aspiration. Findings should be followed radiographically until clear. 2. Other chronic appearing findings. Chest X-Ray 06/22/25 07:45 IMPRESSION: 1. Stable to mildly improved appearance of interstitial/vascular markings. Labs Labs: Laboratory Results - last 24 hr 06/24/25 06/24/25 06/24/25 11:16 16:14 20:49 WBC RBC Hgb Hct MCV MCH MCHC RDW Plt Count MPV Immature Gran % (Auto) Neut % (Auto) Lymph % (Auto) [place] % (Auto) Eos % (Auto) Baso % (Auto) Lymph # (Auto) [place] # (Auto) Eos # (Auto) Baso # (Auto) Abs Immat Gran (auto) Absolute Neuts (auto) Absolute Nucleated RBC Nucleated RBC % Sodium Potassium Chloride Carbon Dioxide Anion Gap BUN Creatinine Estim Creat Clear Calc Estimated GFR Glucose POC Capillary Glucose 173 H 190 H 216 H Calcium Magnesium Total Bilirubin AST ALT Alkaline Phosphatase Total Protein Albumin 06/25/25 06/25/25 03:56 09:13 WBC 9.3 RBC 3.19 L Hgb 10.5 L Hct 31.9 L MCV 100.0 MCH 32.9 MCHC 32.9 RDW 14.1 Plt Count 170 MPV 12.0 H Immature Gran % (Auto) 0.5 Neut % (Auto) 62.7 Lymph % (Auto) 26.3 [place] % (Auto) 8.0 Eos % (Auto) 2.2 Baso % (Auto) 0.3 Lymph # (Auto) 2.44 [place] # (Auto) 0.7 H Eos # (Auto) 0.2 Baso # (Auto) 0.0 Abs Immat Gran (auto) 0.05 H Absolute Neuts (auto) 5.8 Absolute Nucleated RBC 0.000 Nucleated RBC % 0.0 Sodium 131 L Potassium 4.4 Chloride 105 Carbon Dioxide 21 L Anion Gap 5 BUN 66 H Creatinine 2.37 H Estim Creat Clear Calc 20 Estimated GFR 20 L Glucose 148 H POC Capillary Glucose 167 H Calcium 8.4 Magnesium 2.4 H Total Bilirubin 0.6 AST 36 ALT 29 Alkaline Phosphatase 78 Total Protein 5.8 L Albumin 3.1 L
[2025-06-25] MEDS: FLUTICASONE PROPIONATE 0.05% NA SPR 16 GM BTL (*BKC) 1 SPRAY NASAL ×2 (09:30→20:35)
--- NOTE | 2025-06-25 12:44 | P.PNNP_ITS ---
Progress Note: A&P Assessment and Plan (1) Acute kidney injury: Code(s): N17.9 - Acute kidney failure, unspecified Status: Acute Assessment and Plan: * baseline creatinine runs in the 1.3-1.6 range as of a couple of months ago. * as noted on admission, creatinine was 2.26mg/dL. After admission and came down a little bit and now is on its way back up at 2.37. * fluctuating since hospitalization began * possible new baseline or element of CKD progression? (see #2) * several issues playing a role: * CHF exacerbation * Afib with RVR * COPD * hypoxia(?) * diuresis * ARB + HCTZ use prior to admission * other(?) * evaluation to date noted: * renal ultrasound w/o obstruction * urine electrolytes nonprerenal * urine eosinophils negative * noted proteinuria * CPK normal * Will see what the creatinine is tomorrow and get a trend. If it continues to rise we may need to do more testing. (2) Stage 3b chronic kidney disease: Code(s): N18.32 - Chronic kidney disease, stage 3b Status: Chronic Assessment and Plan: * baseline creatinine seems to run ~ 1.3 - 1.7mg/dl * however, has been as high as 2.0mg/dl * this causes her to fluctuate between CKD state 3b and stage 4 * secondary to hypertension, diabetes vascular disease (CAD + hyperlipidemia), COPD/DENNIS, and age-related change * follows with Jennifer Chairez NP/Dr. Young for CKD management (3) CHF (congestive heart failure): Qualifiers: Heart failure chronicity: unspecified Heart failure type: unspecified Qualified Code(s): I50.9 - Heart failure, unspecified Code(s): I50.9 - Heart failure, unspecified Status: Acute Assessment and Plan: * suggeste by pulmonary vascular congestion on x-ray and exam * no lower extremity edema * reportedly just discharged from [facility] in December 2024 with heart failure (but not sent home on diuretics), * Echo results noted: * left ventricular systolic function is normal, estimated at 65 - 70% * mitral valve has moderately calcified leaflets and a moderately calcified a nnulus * mild mitral valve regurgitation * mild tricuspid valve regurgitation * severe pulmonary hypertension, estimated pulmonary arterial systolic pressure is 63 mmHg. * The patient looks less short of breath than it sounds like she was on admission. * will get another chest x-ray tomorrow. (4) Atrial fibrillation with rapid ventricular response: Code(s): I48.91 - Unspecified atrial fibrillation Status: Acute Assessment and Plan: * admission EKG showed AFib with RVR rate 155 * acheived rate control with IV Cardiazem * on heparin gtt * on sotalol * Pulse in the 40s and 50s now. (5) COPD (chronic obstructive pulmonary disease): Code(s): J44.9 - Chronic obstructive pulmonary disease, unspecified Status: Acute Assessment and Plan: * Pulmonary following with recommendations noted * on inhalers * supplemental oxygen PRN (6) Pulmonary hypertension: Code(s): I27.20 - Pulmonary hypertension, unspecified Status: Acute Assessment and Plan: * as seen on echocardiogram with RVSP of 63 mmHg * Pulmonology and Cardiology following (7) Hypertension: Qualifiers: Hypertension type: essential hypertension Qualified Code(s): I10 - Essential (primary) hypertension Code(s): I10 - Essential (primary) hypertension Status: Acute Assessment and Plan: * quite erratic control . Indeed, systolic ranging from 09/02 to almost 200, although since the last set of changes by Dr. Marvin, the numbers have been ranging 130-160. * off ARB due to #1 * titrated hydralazine yesterday * changed nifedipine to bid yesterday * see how blood pressure does over the next 24hours (8) Type 2 diabetes mellitus with diabetic chronic kidney disease: Code(s): E11.22 - Type 2 diabetes mellitus with diabetic chronic kidney disease Status: Acute Assessment and Plan: * follow accu-cheks * glycemic control per hospitalist Will continue to follow. Subjective Date/time seen: 06/25/25 12:44 Interval history: patient is alert and feels okay. Did not eat breakfast because she is getting a test. Exam Narrative: General: elderly but WD/WN female in NAD Heart: IRRR, normal S1 and S2; no rub or gallop Lungs: coarse breath sounds Abdomen: soft, nontender, nondistended, positive bowel sounds Extremities: no cyanosis or clubbing; trace edema Skin: no rash or subcu nodules Objective Data Vital Signs Vital Signs: Vital Signs - 24 hr 06/24/25 14:00 06/24/25 14:15 06/24/25 14:16 Temperature Pulse Rate 58 L 70 Respiratory Rate Blood Pressure Pulse Oximetry 87 L 91 Oxygen Delivery Room Air Nasal Cannula Oxygen Flow Rate 1 Fraction of Inspired Oxygen 06/24/25 14:19 06/24/25 14:20 06/24/25 14:21 Temperature Pulse Rate 90 Respiratory Rate Blood Pressure Pulse Oximetry 87 L 88 L 92 Oxygen Delivery Nasal Cannula Nasal Cannula Nasal Cannula Oxygen Flow Rate 1 2 3 Fraction of Inspired Oxygen 06/24/25 14:30 06/24/25 16:00 06/24/25 16:00 Temperature 98.2 F Pulse Rate 76 54 L Respiratory Rate 22 H Blood Pressure 197/43 H 186/43 H Pulse Oximetry 92 92 Oxygen Delivery Nasal Cannula Oxygen Flow Rate 1 Fraction of Inspired Oxygen 06/24/25 16:00 06/24/25 16:00 06/24/25 16:40 Temperature Pulse Rate 70 70 51 L Respiratory Rate 16 16 Blood Pressure Pulse Oximetry 92 Oxygen Delivery Nasal Cannula Oxygen Flow Rate 2 Fraction of Inspired Oxygen 55 06/24/25 16:48 06/24/25 18:00 06/24/25 19:36 Temperature Pulse Rate 51 L 58 L Respiratory Rate 16 Blood Pressure Pulse Oximetry 92 Oxygen Delivery Nasal Cannula Oxygen Flow Rate 3 Fraction of Inspired Oxygen 06/24/25 20:00 06/24/25 20:00 06/24/25 20:34 Temperature 98.4 F Pulse Rate 53 L 54 L Respiratory Rate 21 H Blood Pressure 198/33 H Pulse Oximetry 98 93 Oxygen Delivery Nasal Cannula Oxygen Flow Rate 2 Fraction of Inspired Oxygen 06/24/25 22:00 06/25/25 00:00 06/25/25 00:00 Temperature 96.6 F L Pulse Rate 52 L 54 L Respiratory Rate 20 Blood Pressure 157/47 H Pulse Oximetry 90 90 Oxygen Delivery CPAP Oxygen Flow Rate Fraction of Inspired Oxygen 06/25/25 00:00 06/25/25 00:51 06/25/25 02:00 Temperature Pulse Rate 49 L 53 L 54 L Respiratory Rate Blood Pressure Pulse Oximetry 92 93 Oxygen Delivery CPAP CPAP Oxygen Flow Rate Fraction of Inspired Oxygen 06/25/25 02:00 06/25/25 04:00 06/25/25 04:00 Temperature 97.2 F L Pulse Rate 47 L 48 L Respiratory Rate 20 Blood Pressure 130/83 Pulse Oximetry 94 94 Oxygen Delivery CPAP Oxygen Flow Rate Fraction of Inspired Oxygen 06/25/25 04:00 06/25/25 06:00 06/25/25 07:40 Temperature Pulse Rate 52 L 50 L Respiratory Rate Blood Pressure Pulse Oximetry Oxygen Delivery CPAP Oxygen Flow Rate Fraction of Inspired Oxygen 06/25/25 07:40 06/25/25 07:41 06/25/25 07:42 Temperature Pulse Rate 53 L 53 L Respiratory Rate 18 18 Blood Pressure Pulse Oximetry 93 Oxygen Delivery High Flow Therapy with Na Oxygen Flow Rate 5 Fraction of Inspired Oxygen 06/25/25 08:00 06/25/25 08:00 06/25/25 08:00 Temperature 97.4 F L Pulse Rate 51 L 48 L Respiratory Rate 18 Blood Pressure 154/52 H Pulse Oximetry 92 94 Oxygen Delivery Nasal Cannula Oxygen Flow Rate 3 Fraction of Inspired Oxygen 06/25/25 09:45 06/25/25 10:00 06/25/25 11:50 Temperature 97.8 F Pulse Rate 50 L 48 L 47 L Respiratory Rate 16 Blood Pressure 164/41 H Pulse Oximetry 92 Oxygen Delivery Oxygen Flow Rate Fraction of Inspired Oxygen Intake/Output Intake/Output: Intake & Output 06/22/25 06/23/25 06/24/25 06/25/25 23:59 23:59 23:59 23:59 Intake Total 1389.2 2110.0 1388 290 Output Total 350 1050 Balance 1039.2 1060.0 1388 290 Meds/Results Medications: Active Medications Generic Name Dose Route Start Last Admin Trade Name Freq PRN Reason Stop Dose Admin Acetaminophen 1,000 mg 06/19/25 22:44 06/22/25 21:13 Acetaminophen 500 Mg Tablet PO 1,000 mg TID PRN Administration Mild Pain (1-3) or Fever Allopurinol 100 mg 06/23/25 09:00 06/24/25 08:39 Allopurinol 100 Mg Tablet PO 100 mg Q48HR DAVID Administration Apixaban 2.5 mg 06/23/25 21:00 06/25/25 09:16 Apixaban 2.5 Mg Tablet PO 2.5 mg Q12HR DAVID Administration Aspirin 81 mg 06/20/25 09:00 06/25/25 09:17 Aspirin 81 Mg Enteric Tablet PO 81 mg DAILY DAVID Administration Atorvastatin Calcium 80 mg 06/20/25 09:55 06/25/25 09:16 Atorvastatin 40 Mg Tablet PO 80 mg DAILY DAVID Administration Dextrose 12.5 gm 06/19/25 21:30 Dextrose 50% 25 Gm/50 Ml Syringe IV PUSH PRN PRN Hypoglycemia Protocol Fluticasone Propionate 1 spray 06/20/25 09:00 06/25/25 09:30 Fluticasone Propionate 0.05% Na Spr 16 Gm Btl (*Bkc) NASAL 1 spray Q12H DAVID Administration Fluticasone/Umeclidinium/Vilanterol 1 puff 06/20/25 09:00 06/25/25 07:38 Fluticasone/Umeclidin/Vilanter 100-62.5-25 Mcg Ellipta INHALATION 1 puff Q24H DAVID Administration Glucose 15 gm 06/19/25 21:30 Glucose Oral Gel 15 Gm Of Glucse In 37.5 Gm Tube PO PRN PRN Hypoglycemia Protocol Guaifenesin 1,200 mg 06/22/25 09:20 06/25/25 09:16 Guaifenesin 12 Hr 600 Mg Tabcr PO 1,200 mg Q12HR DAVID Administration Hydralazine HCl 100 mg 06/22/25 17:00 06/25/25 09:14 Hydralazine Hcl 50 Mg Tablet PO 100 mg QID DAVID Administration Hydrochlorothiazide 12.5 mg 06/20/25 09:50 06/25/25 09:16 Hydrochlorothiazide 12.5 Mg Capsule PO 12.5 mg DAILY DAVID Administration Dextrose 1,000 mls @ 100 mls/hr 06/19/25 21:30 Dextrose 5% 1,000 Ml IVPB PRN PRN Hypoglycemia Protocol Ceftriaxone Sodium 1 gm/ 50 mls @ 100 mls/hr 06/22/25 09:00 06/25/25 09:50 Sodium Chloride IVPB Infused Q24H DAVID Infusion Levofloxacin/Dextrose 750 mg in 150 mls @ 100 mls/hr 06/22/25 09:00 06/24/25 10:10 Levaquin 750 Mg/D5w 150 Ml IVPB Infused Q48HR DAVID Infusion Insulin Aspart 2 - 5 units 06/20/25 08:00 06/25/25 09:30 Insulin Aspart (*Bkc) 100 Units/Ml SUB-Q Not Given [facility] Protocol Insulin Aspart 1 - 2 units 06/20/25 21:00 06/24/25 21:34 Insulin Aspart (*Bkc) 100 Units/Ml SUB-Q 1 units HS DAVID Administration Protocol Isosorbide Mononitrate 60 mg 06/20/25 09:50 06/25/25 09:15 Isosorbide Mononitrate 60 Mg Tab.Er.24h PO 60 mg DAILY DAVID Administration Levalbuterol HCl 0.63 mg 06/21/25 19:41 06/24/25 16:41 Levalbuterol Neb 1.25 Mg/3 Ml INHALATION 0.63 mg Q6HRT PRN Administration shortness of breath Levothyroxine Sodium 100 mcg 06/21/25 06:30 06/25/25 06:44 Levothyroxine Sodium 100 Mcg Tablet PO 100 mcg DAILY@0630 DAVID Administration Losartan Potassium 100 mg 06/20/25 09:00 06/22/25 09:16 Losartan Potassium 100 Mg Tablet PO 100 mg On Hold: 06/22/25 15:20 DAILY DAVID Administration Nifedipine 30 mg 06/24/25 18:10 06/25/25 09:14 Nifedipine 30 Mg Tab.Er.24 PO 30 mg BID DAVID Administration Sotalol HCl 40 mg 06/21/25 09:00 06/25/25 09:45 Sotalol Hcl 40 Mg Tablet PO 40 mg DAILY DAVID Administration Radiology Results: ITS Impressions Pulmonary Perfusion Imaging 06/21/25 11:25 IMPRESSION: No compelling or large segmental size areas of mismatch, and with right base findings on today's chest x-ray, the perfusion mismatch in the right base is of uncertain significance. Per PIOPED criteria, this is an indeterminate INTERMEDIATE probability for pulmonary embolus. Renal Ultrasound 06/21/25 13:56 IMPRESSION: 1. Normal kidneys without hydronephrosis. Chest CT 06/21/25 14:30 IMPRESSION: 1. Bibasilar consolidations likely associated with aspiration versus community- acquired pneumonia. Mucoid appearing changes in the bronchi endotracheal air column support aspiration. Findings should be followed radiographically until clear. 2. Other chronic appearing findings. Chest X-Ray 06/22/25 07:45 IMPRESSION: 1. Stable to mildly improved appearance of interstitial/vascular markings. Labs Labs: Laboratory Results - last 24 hr 06/24/25 06/24/25 06/25/25 16:14 20:49 03:56 WBC 9.3 RBC 3.19 L Hgb 10.5 L Hct 31.9 L MCV 100.0 MCH 32.9 MCHC 32.9 RDW 14.1 Plt Count 170 MPV 12.0 H Immature Gran % (Auto) 0.5 Neut % (Auto) 62.7 Lymph % (Auto) 26.3 [place] % (Auto) 8.0 Eos % (Auto) 2.2 Baso % (Auto) 0.3 Lymph # (Auto) 2.44 [place] # (Auto) 0.7 H Eos # (Auto) 0.2 Baso # (Auto) 0.0 Abs Immat Gran (auto) 0.05 H Absolute Neuts (auto) 5.8 Absolute Nucleated RBC 0.000 Nucleated RBC % 0.0 Sodium 131 L Potassium 4.4 Chloride 105 Carbon Dioxide 21 L Anion Gap 5 BUN 66 H Creatinine 2.37 H Estim Creat Clear Calc 20 Estimated GFR 20 L Glucose 148 H POC Capillary Glucose 190 H 216 H Calcium 8.4 Magnesium 2.4 H Total Bilirubin 0.6 AST 36 ALT 29 Alkaline Phosphatase 78 Total Protein 5.8 L Albumin 3.1 L 06/25/25 06/25/25 09:13 11:14 WBC RBC Hgb Hct MCV MCH MCHC RDW Plt Count MPV Immature Gran % (Auto) Neut % (Auto) Lymph % (Auto) [place] % (Auto) Eos % (Auto) Baso % (Auto) Lymph # (Auto) [place] # (Auto) Eos # (Auto) Baso # (Auto) Abs Immat Gran (auto) Absolute Neuts (auto) Absolute Nucleated RBC Nucleated RBC % Sodium Potassium Chloride Carbon Dioxide Anion Gap BUN Creatinine Estim Creat Clear Calc Estimated GFR Glucose POC Capillary Glucose 167 H 225 H Calcium Magnesium Total Bilirubin AST ALT Alkaline Phosphatase Total Protein Albumin
[2025-06-25] MEDS: INSULIN ASPART (*BKC) 100 UNITS/ML SUB-Q ×2 (13:46→20:40)
--- NOTE | 2025-06-25 15:38 | P.PNIM_ITS ---
Progress Note: A&P Assessment and Plan (1) CHF (congestive heart failure): Qualifiers: Heart failure chronicity: unspecified Heart failure type: unspecified Qualified Code(s): I50.9 - Heart failure, unspecified Code(s): I50.9 - Heart failure, unspecified Status: Acute Assessment and Plan: Pulmonary vascular congestion on x-ray/auscultation of lungs. No lower extremity edema. Reports she was discharged from [facility] in December 2024 with heart failure but not sent home on diuretics. Patient did receive 1 L normal saline bolus in the ER, -admitted with AFib with RVR is controlled we will monitor. Continue heparin gtt. - Daily weights, strict intake/output. -Pt diagnosed with CHF December 2024 with no new meds. -06/21: V/Q scan showed intermediate probability for PE -06/21: overnight patient had increased oxygen requirements, currently on 8 L nasal cannula -06/21: Chest x-ray showed pulmonary vascular congestion, will give Lasix - patient may have HFpEF since she has diastolic dysfunction as seen on echocardiogram is under which could be related to her systemic hypertension and pulmonary hypertension 06/23: Adjusted oral antihypertensive medication. Holding losartan due to DEBBIE on CKD. Increase hydralazine from 75 mg 100 mg qid.. Added nifedipine 30 mg p.o. q.d.. Will continue hydrochlorothiazide 12.5 mg p.o. q.d. and isosorbide mononitrate 60 mg p.o. q.d. and sotalol 40 mg p.o. q.d. Nifedipine increased to 30 mg b.i.d. losartan remains on hold 06/20/25: Echocardiogram Summary 1. Definity contrast administered improved wall motion interpretation. 2. Left ventricular chamber dimension is normal. 3. Left ventricular systolic function is normal, estimated at 65-70. 4. There is moderate concentric increased left ventricular wall thickness. 5. E/e' 48 is significantly elevated. 6. Left atrial chamber dimension is severely enlarged. 7. The mitral valve has moderately calcified leaflets and a moderately calcified annulus. 8. There is mild mitral valve regurgitation. 9. There is mild tricuspid valve regurgitation. 10. Severe pulmonary hypertension, estimated pulmonary arterial systolic pressure is 63 mmHg. 11. Dilated inferior vena cava with >50% collapse upon inspiration consistent with elevated right atrial pressure, 10 mmHg. (2) Atrial fibrillation with rapid ventricular response: Code(s): I48.91 - Unspecified atrial fibrillation Status: Acute Assessment and Plan: ED EKG showed AFib with RVR rate 155, patient received Cardizem 15 mg IV x1, with subsequent rate control an EKG demonstrating AFib. Shortness of breath resolved. Currently AFib with controlled rate. Stop the heparin and started Eliquis -appreciate cardiology evaluation recommendation -06/20: started on sotalol b.i.d. which has been decreased to once daily due to bradycardia (on 06/21) -TSH within normal limits, -magnesium and potassium levels within normal limits -continue IMU status -started patient on Eliquis -echocardiogram as above (3) DEBBIE (acute kidney injury): Code(s): N17.9 - Acute kidney failure, unspecified Status: Acute Assessment and Plan: Now that her AFib with RVR is controlled we will monitor. Daily weights, strict intake/output. -1L given in ED, pt with CHF hx (new December 2024) -DEBBIE could be related to elevated blood pressure, CHF, atrial fibrillation 06/20: Creatinine baseline seems to be around 1.3-1.6, -creatinine gradually improving -continue blood pressure medications -nephrology on board Losartan on hold (4) Chronic kidney disease, stage 3b: Code(s): N18.32 - Chronic kidney disease, stage 3b Status: Acute Assessment and Plan: Holding losartan Increasing hydralazine from 75 mg to 100 q.i.d. Holding losartan due to DEBBIE on CKD. Increase hydralazine from 75 mg 100 mg qid.. Added nifedipine 30 mg p.o. q.d.. Will continue hydrochlorothiazide 12.5 mg p.o. q.d. and isosorbide mononitrate 60 mg p.o. q.d. and sotalol 40 mg p.o. q.d. Nifedipine increased to 30 mg b.i.d. (5) COPD (chronic obstructive pulmonary disease): Code(s): J44.9 - Chronic obstructive pulmonary disease, unspecified Status: Acute Assessment and Plan: Mild COPD exacerbation, her symptoms could have been related to AFib and pulmonary vascular congestion. received Solu-Medrol with EMS. 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 06/20: Pt with clear lungs today -Steroids given in ED, if wheezing continues, may give additional steroids. -06/21: Increasing oxygen requirements. - Appreciate pulmonology evaluation -patient with HFpEF, possible COPD, possible PE as V/Q scan on 06/21 showed intermediate probability -continue anticoagulation -continue Trelegy per pulmonology (6) CAD (coronary artery disease): Qualifiers: Coronary Disease-Associated Artery/Lesion type: unspecified vessel or lesion type [place] vs. transplanted heart: unspecified whether [place] or transplanted heart Associated angina: unspecified whether angina present Qualified Code(s): I25.10 - Atherosclerotic heart disease of [place] coronary artery without angina pectoris Code(s): I25.10 - Atherosclerotic heart disease of [place] coronary artery without angina pectoris Status: Acute Assessment and Plan: 06/20: S/p stents. Resume [employer] aspirin and atorvastatin. (7) Type 2 diabetes mellitus with diabetic chronic kidney disease: Code(s): E11.22 - Type 2 diabetes mellitus with diabetic chronic kidney disease Status: Acute Assessment and Plan: Accu-Cheks ACHS with low-dose insulin sliding scale and hypoglycemia protocol. (8) Hypertension: Qualifiers: Hypertension type: essential hypertension Qualified Code(s): I10 - Essential (primary) hypertension Code(s): I10 - Essential (primary) hypertension Status: Acute Assessment and Plan: Acute on chronic. [employer]PA[employer] antihypertensives once med rec entered. Patient does state that her blood pressures are normally in the 160s to 180s range -increase hydralazine 75 mg Q i.d. to 100 mg q.i.d. -Continue to monitor -continue isosorbide 60 mg p.o. q.d., nifedipine 30 mg p.o. q.d., sotalol 40 mg p.o. q.d. nifedipine increased to 30 mg b.i.d. Renal ultrasound negative for renal artery stenosis Losartan on hold due to DEBBIE (9) Pulmonary hypertension: Code(s): I27.20 - Pulmonary hypertension, unspecified Status: Acute Assessment and Plan: Severe pulmonary hypertension as seen on echocardiogram with RVSP of 63 mmHg -pulmonology and cardiology following the patient Plan DVT prophylaxis: Apixaban Stress ulcer prophylaxis: Not indicated Nutrition: Diabetic and heart healthy diet Code Status: DNR Subjective Date/time seen: 06/25/25 15:38 Interval history: No overnight events. Feels good. Remains on oxygen 3 L no cough Review of Systems Review of Systems: All systems reviewed & are unremarkable except as noted in HPI and below Exam Narrative: General: Pleasant female, not in acute distress HEENT:? Pupils equal reactive, sclera is clear, moist oral mucosa Neck:? Supple Respiratory:? Coarse breath sounds bilaterally, decreased at bases, no wheezing Cardiac:? Is irregularly irregular, rate controlled/bradycardia sinus on telemetry Abdomen:? Soft, nontender, nondistended, protuberant, normoactive bowel sounds Extremities:? Extremities are warm, no cyanosis, no edema Neuro:? Patient is awake, alert, oriented, nonfocal, moving all extremities Skin:? No lesions noted Psych:? Normal mentation and affect Objective Data Vital Signs Vital Signs: Vital Signs - 24 hr 06/24/25 16:00 06/24/25 16:00 06/24/25 16:00 Temperature 98.2 F Pulse Rate 54 L 70 Respiratory Rate 22 H Blood Pressure 197/43 H 186/43 H Pulse Oximetry 92 Oxygen Delivery Oxygen Flow Rate Fraction of Inspired Oxygen 06/24/25 16:00 06/24/25 16:40 06/24/25 16:48 Temperature Pulse Rate 70 51 L 51 L Respiratory Rate 16 16 16 Blood Pressure Pulse Oximetry 92 Oxygen Delivery Nasal Cannula Oxygen Flow Rate 2 Fraction of Inspired Oxygen 55 06/24/25 18:00 06/24/25 19:36 06/24/25 20:00 Temperature Pulse Rate 58 L Respiratory Rate Blood Pressure Pulse Oximetry 92 98 Oxygen Delivery Nasal Cannula Nasal Cannula Oxygen Flow Rate 3 2 Fraction of Inspired Oxygen 06/24/25 20:00 06/24/25 20:34 06/24/25 22:00 Temperature 98.4 F Pulse Rate 53 L 54 L 52 L Respiratory Rate 21 H Blood Pressure 198/33 H Pulse Oximetry 93 Oxygen Delivery Oxygen Flow Rate Fraction of Inspired Oxygen 06/25/25 00:00 06/25/25 00:00 06/25/25 00:00 Temperature 96.6 F L Pulse Rate 54 L 49 L Respiratory Rate 20 Blood Pressure 157/47 H Pulse Oximetry 90 90 Oxygen Delivery CPAP Oxygen Flow Rate Fraction of Inspired Oxygen 06/25/25 00:51 06/25/25 02:00 06/25/25 02:00 Temperature Pulse Rate 53 L 54 L 47 L Respiratory Rate Blood Pressure Pulse Oximetry 92 93 Oxygen Delivery CPAP CPAP Oxygen Flow Rate Fraction of Inspired Oxygen 06/25/25 04:00 06/25/25 04:00 06/25/25 04:00 Temperature 97.2 F L Pulse Rate 48 L 52 L Respiratory Rate 20 Blood Pressure 130/83 Pulse Oximetry 94 94 Oxygen Delivery CPAP Oxygen Flow Rate Fraction of Inspired Oxygen 06/25/25 06:00 06/25/25 07:40 06/25/25 07:40 Temperature Pulse Rate 50 L 53 L Respiratory Rate 18 Blood Pressure Pulse Oximetry Oxygen Delivery CPAP Oxygen Flow Rate Fraction of Inspired Oxygen 06/25/25 07:41 06/25/25 07:42 06/25/25 08:00 Temperature 97.4 F L Pulse Rate 53 L 51 L Respiratory Rate 18 18 Blood Pressure 154/52 H Pulse Oximetry 93 92 Oxygen Delivery High Flow Therapy with Na Oxygen Flow Rate 5 Fraction of Inspired Oxygen 06/25/25 08:00 06/25/25 08:00 06/25/25 09:45 Temperature Pulse Rate 48 L 50 L Respiratory Rate Blood Pressure Pulse Oximetry 94 Oxygen Delivery Nasal Cannula Oxygen Flow Rate 3 Fraction of Inspired Oxygen 06/25/25 10:00 06/25/25 11:50 06/25/25 12:00 Temperature 97.8 F Pulse Rate 48 L 47 L Respiratory Rate 16 Blood Pressure 164/41 H Pulse Oximetry 92 94 Oxygen Delivery Nasal Cannula Oxygen Flow Rate 3 Fraction of Inspired Oxygen 06/25/25 12:00 06/25/25 14:00 Temperature Pulse Rate 52 L 63 Respiratory Rate Blood Pressure Pulse Oximetry Oxygen Delivery Oxygen Flow Rate Fraction of Inspired Oxygen Intake/Output Intake/Output: Intake & Output 06/22/25 06/23/25 06/24/25 06/25/25 23:59 23:59 23:59 23:59 Intake Total 1389.2 2110.0 1388 290 Output Total 350 1050 Balance 1039.2 1060.0 1388 290 Meds/Results Medications: Active Medications Generic Name Dose Route Start Last Admin Trade Name Freq PRN Reason Stop Dose Admin Acetaminophen 1,000 mg 06/19/25 22:44 06/22/25 21:13 Acetaminophen 500 Mg Tablet PO 1,000 mg TID PRN Administration Mild Pain (1-3) or Fever Allopurinol 100 mg 06/23/25 09:00 06/24/25 08:39 Allopurinol 100 Mg Tablet PO 100 mg Q48HR DAVID Administration Apixaban 2.5 mg 06/23/25 21:00 06/25/25 09:16 Apixaban 2.5 Mg Tablet PO 2.5 mg Q12HR DAVID Administration Aspirin 81 mg 06/20/25 09:00 06/25/25 09:17 Aspirin 81 Mg Enteric Tablet PO 81 mg DAILY DAVID Administration Atorvastatin Calcium 80 mg 06/20/25 09:55 06/25/25 09:16 Atorvastatin 40 Mg Tablet PO 80 mg DAILY DAVID Administration Dextrose 12.5 gm 06/19/25 21:30 Dextrose 50% 25 Gm/50 Ml Syringe IV PUSH PRN PRN Hypoglycemia Protocol Fluticasone Propionate 1 spray 06/20/25 09:00 06/25/25 09:30 Fluticasone Propionate 0.05% Na Spr 16 Gm Btl (*Bkc) NASAL 1 spray Q12H DAVID Administration Fluticasone/Umeclidinium/Vilanterol 1 puff 06/20/25 09:00 06/25/25 07:38 Fluticasone/Umeclidin/Vilanter 100-62.5-25 Mcg Ellipta INHALATION 1 puff Q24H DAVID Administration Glucose 15 gm 06/19/25 21:30 Glucose Oral Gel 15 Gm Of Glucse In 37.5 Gm Tube PO PRN PRN Hypoglycemia Protocol Guaifenesin 1,200 mg 06/22/25 09:20 06/25/25 09:16 Guaifenesin 12 Hr 600 Mg Tabcr PO 1,200 mg Q12HR DAVID Administration Hydralazine HCl 100 mg 06/22/25 17:00 06/25/25 13:42 Hydralazine Hcl 50 Mg Tablet PO 100 mg QID DAVID Administration Hydrochlorothiazide 12.5 mg 06/20/25 09:50 06/25/25 09:16 Hydrochlorothiazide 12.5 Mg Capsule PO 12.5 mg DAILY DAVID Administration Dextrose 1,000 mls @ 100 mls/hr 06/19/25 21:30 Dextrose 5% 1,000 Ml IVPB PRN PRN Hypoglycemia Protocol Ceftriaxone Sodium 1 gm/ 50 mls @ 100 mls/hr 06/22/25 09:00 06/25/25 09:50 Sodium Chloride IVPB Infused Q24H DAVID Infusion Levofloxacin/Dextrose 750 mg in 150 mls @ 100 mls/hr 06/22/25 09:00 06/24/25 10:10 Levaquin 750 Mg/D5w 150 Ml IVPB Infused Q48HR DAVID Infusion Insulin Aspart 2 - 5 units 06/20/25 08:00 06/25/25 13:46 Insulin Aspart (*Bkc) 100 Units/Ml SUB-Q 2 units TIDWM DAVID Administration Protocol Insulin Aspart 1 - 2 units 06/20/25 21:00 06/24/25 21:34 Insulin Aspart (*Bkc) 100 Units/Ml SUB-Q 1 units HS DAVID Administration Protocol Isosorbide Mononitrate 60 mg 06/20/25 09:50 06/25/25 09:15 Isosorbide Mononitrate 60 Mg Tab.Er.24h PO 60 mg DAILY DAVID Administration Levalbuterol HCl 0.63 mg 06/21/25 19:41 06/24/25 16:41 Levalbuterol Neb 1.25 Mg/3 Ml INHALATION 0.63 mg Q6HRT PRN Administration shortness of breath Levothyroxine Sodium 100 mcg 06/21/25 06:30 06/25/25 06:44 Levothyroxine Sodium 100 Mcg Tablet PO 100 mcg DAILY@0630 DAVID Administration Losartan Potassium 100 mg 06/20/25 09:00 06/22/25 09:16 Losartan Potassium 100 Mg Tablet PO 100 mg On Hold: 06/22/25 15:20 DAILY DAVID Administration Nifedipine 30 mg 06/24/25 18:10 06/25/25 09:14 Nifedipine 30 Mg Tab.Er.24 PO 30 mg BID DAVID Administration Sotalol HCl 40 mg 06/21/25 09:00 06/25/25 09:45 Sotalol Hcl 40 Mg Tablet PO 40 mg DAILY DAVID Administration Radiology Results: ITS Impressions Pulmonary Perfusion Imaging 06/21/25 11:25 IMPRESSION: No compelling or large segmental size areas of mismatch, and with right base findings on today's chest x-ray, the perfusion mismatch in the right base is of uncertain significance. Per PIOPED criteria, this is an indeterminate INTERMEDIATE probability for pulmonary embolus. Renal Ultrasound 06/21/25 13:56 IMPRESSION: 1. Normal kidneys without hydronephrosis. Chest CT 06/21/25 14:30 IMPRESSION: 1. Bibasilar consolidations likely associated with aspiration versus community- acquired pneumonia. Mucoid appearing changes in the bronchi endotracheal air column support aspiration. Findings should be followed radiographically until clear. 2. Other chronic appearing findings. Chest X-Ray 06/22/25 07:45 IMPRESSION: 1. Stable to mildly improved appearance of interstitial/vascular markings. Arterial/Peripheral Duplex 06/25/25 14:48 IMPRESSION: 1. No Doppler evidence of renal artery stenosis. Labs Labs: Laboratory Results - last 24 hr 06/24/25 06/24/25 06/25/25 16:14 20:49 03:56 WBC 9.3 RBC 3.19 L Hgb 10.5 L Hct 31.9 L MCV 100.0 MCH 32.9 MCHC 32.9 RDW 14.1 Plt Count 170 MPV 12.0 H Immature Gran % (Auto) 0.5 Neut % (Auto) 62.7 Lymph % (Auto) 26.3 [place] % (Auto) 8.0 Eos % (Auto) 2.2 Baso % (Auto) 0.3 Lymph # (Auto) 2.44 [place] # (Auto) 0.7 H Eos # (Auto) 0.2 Baso # (Auto) 0.0 Abs Immat Gran (auto) 0.05 H Absolute Neuts (auto) 5.8 Absolute Nucleated RBC 0.000 Nucleated RBC % 0.0 Sodium 131 L Potassium 4.4 Chloride 105 Carbon Dioxide 21 L Anion Gap 5 BUN 66 H Creatinine 2.37 H Estim Creat Clear Calc 20 Estimated GFR 20 L Glucose 148 H POC Capillary Glucose 190 H 216 H Calcium 8.4 Magnesium 2.4 H Total Bilirubin 0.6 AST 36 ALT 29 Alkaline Phosphatase 78 Total Protein 5.8 L Albumin 3.1 L 06/25/25 06/25/25 09:13 11:14 WBC RBC Hgb Hct MCV MCH MCHC RDW Plt Count MPV Immature Gran % (Auto) Neut % (Auto) Lymph % (Auto) [place] % (Auto) Eos % (Auto) Baso % (Auto) Lymph # (Auto) [place] # (Auto) Eos # (Auto) Baso # (Auto) Abs Immat Gran (auto) Absolute Neuts (auto) Absolute Nucleated RBC Nucleated RBC % Sodium Potassium Chloride Carbon Dioxide Anion Gap BUN Creatinine Estim Creat Clear Calc Estimated GFR Glucose POC Capillary Glucose 167 H 225 H Calcium Magnesium Total Bilirubin AST ALT Alkaline Phosphatase Total Protein Albumin
[2025-06-26] VITALS (12 sets, daily range): BP systolic 143–163; BP diastolic 43–60; PULSE 45–68; RESP 20–24; TEMP 36.6–36.8; O2SAT 89–94
[2025-06-26 04:19] LABS: Hematocrit 32.8 % (37.0-47.0); Hemoglobin 10.5 g/dL (12.0-15.0); Immature Granulocyte Percent A 0.7 % (0-0.5); Lymphocytes Absolute Auto 2.26 K/mm3 (0.9-3.2); Mean Corpuscular HGB Conc 32.0 g/dl (32-36); Mean Corpuscular Hemoglobin 32.5 pg (26-34); Mean Corpuscular Volume 101.5 fl (80-100); Nucleated Red Blood Cells Absolute Auto 0.000 K/mm3 (0.0-0.012); Nucleated Red Blood Cells Perc 0.0 % (0.0-0.2); Platelet Count Result 173 k/mm3 (150-375); Red Blood Count 3.23 M/mm3 (4.2-5.4); White Blood Count 8.1 K/mm3 (4.5-10.0)
[2025-06-26 04:33] LABS: Alanine Aminotransferase 37 U/L (6-35); Albumin Level 3.3 g/dL (3.5-5.1); Alkaline Phosphatase 86 U/L (38-126); Anion Gap 6 mmol/L (4-12); Aspartate Amino Transferase 43 U/L (14-36); Bilirubin,Total 0.6 mg/dL (0.2-1.3); Blood Urea Nitrogen 70 mg/dL (7-17); Calcium 8.7 mg/dL (8.4-10.2); Carbon Dioxide 20 mmol/L (22-30); Chloride 105 mmol/L (98-107); Estimated CRCL calculation 20 ml/min; Estimated Glomerular Filt Rate 21; Glucose 146 mg/dL (65-110); Magnesium 2.7 mg/dL (1.6-2.3); Potassium 4.7 mmol/L (3.4-5.0); Sodium 131 mmol/L (137-145); Total Protein 6.0 g/dL (6.3-8.2)
[2025-06-26] MEDS: LEVOTHYROXINE SODIUM 100 MCG TABLET PO (06:40)
[2025-06-26] MEDS: FLUTICASONE/UMECLIDIN/VILANTER 100-62.5-25 MCG ELLIPTA 1 PUFF INHALATION (09:25)
[2025-06-26] MEDS: cefTRIAXone 1 GM in SODIUM CHLORIDE 0.9% IV 50 ML 100 ML IVPB (09:32)
[2025-06-26] MEDS: levoFLOXacin 750 MG/D5W 150 ML 750 MG/150 ML BAG 100 MG IVPB (09:33)
[2025-06-26] MEDS: FLUTICASONE PROPIONATE 0.05% NA SPR 16 GM BTL (*BKC) 1 SPRAY NASAL ×2 (09:33→20:00)
[2025-06-26] MEDS: guaiFENesin 12 HR 600 MG TABCR 1200 MG PO ×2 (09:34→20:00)
[2025-06-26] MEDS: ATORVASTATIN 40 MG TABLET 80 MG PO (09:34)
[2025-06-26] MEDS: ISOSORBIDE MONONITRATE 60 MG TAB.ER.24H PO (09:34)
[2025-06-26] MEDS: ASPIRIN 81 MG ENTERIC TABLET PO (09:35)
--- NOTE | 2025-06-26 10:17 | WPDCN ---
Assessment and Plan Assessment and plan (1) Postmenopausal bleeding: Code(s): N95.0 - Postmenopausal bleeding Status: Acute Assessment and Plan: Currently her bleeding is minimal, and patient unable to tolerate exam due to medical complex issues. I discussed with the patient that we should follow-up, may need D&C again but certainly once more clinically stable if this is necessary at all. Also pelvic exam with Pap smear would probably be useful to be certain cervical abnormality is related to bleeding. I have discussed this with the patient and she states good understanding and agrees to follow-up on outpatient basis. I will continue to monitor the chart for ultrasound report, if significant abnormalities needs intervention prior to discharge this will be discussed again with patient. HPI Data of Consult Date/Time: 06/26/25 10:17 Requesting Physician: Shirley Raymundo MD Primary Care Provider: Everett Birch DO Consult Narrative Narrative: Vashti Littlejohn is a 75 year old female has had episodes vaginal spotting bleeding over the past month or so, increasing the last few days and has seemed to respond nicely to her Eliquis being stopped as she states the bleeding is very minimal. States that approximately 10 years ago a D&C done with benign tissue and had no significant problems until the last month or so. Denies any pain or discomfort as far as pelvic pathology, ultrasound is ordered and has yet to be read. Gynecologic history significant for 4 vaginal deliveries, no known history of abnormal Pap smears or anatomic abnormalities. Last seen by accounts payable manager approximately 10 years. [facility] Past Medical History Medical History Chronic kidney disease, stage 3a Screening for breast cancer Fluid in knee Osteoarthritis of left knee Hemoglobin A1c less than 7.0% 08/29/20 A1c 5.9 Joint effusion of knee Left knee pain Pulmonary nodule Eczema Urine test positive for microalbuminuria Hyperkalemia Allergies Leukocytosis Complications of gastric bypass surgery 1994 Cholecystectomy planned Bradycardia Hypertension CAD (coronary artery disease) Hypothyroidism Gout Sleep apnea Chicken pox Migraine Type 2 diabetes mellitus Bulging disc Osteoarthritis Hernia Heart disease Hyperlipidemia Myocardial infarction COPD (chronic obstructive pulmonary disease) Family History Family History Mother Family history of renal failure Diabetes mellitus Hypertension Sibling Heart disease Diabetes mellitus Father Diabetes mellitus Hypertension Other Family history of coronary artery disease Family history of obesity Social History Social History Smoking status: Former smoker Tobacco type: cigarettes Smoking end date: 08/04/17 Alcohol intake: never Substance use: current Substance use type: marijuana Do You Feel Safe in your Home?: Yes Lack of Transportation: No Lack of Food: Sometimes True Current Housing: I Have Housing Concerned About Future Housing: No Difficulty Paying Gas/Electric Bills: No Difficulty Paying for Meds: No Currently Unemployed: No Education: Grade School Difficulty w/ Childcare or Family Care: No Gender identity (if verbalized by the patient): Female Spiritual care concerns: No Meds Home Medications and Allergies Home Medications ?Medication ?Instructions ?Recorded ?Confirmed ?Type aspirin 81 mg tablet,delayed 81 mg PO DAILY 07/29/19 06/20/25 History release (Adult Low Dose Aspirin) dapagliflozin propanediol 10 mg 10 mg PO DAILY 12/02/23 06/20/25 History tablet (Farxiga) losartan 100 mg tablet 100 mg PO DAILY #30 tabs 01/17/25 06/20/25 Rx fluticasone propionate 50 1 spray intranasal Q12H #48 grams 02/25/25 06/20/25 Rx mcg/actuation nasal spray,suspension (Flonase Allergy Relief) hydrochlorothiazide 12.5 mg tablet See Rx Instructions .Route 02/25/25 06/20/25 Rx .COMPLEX #180 tabs amlodipine 10 mg tablet See Rx Instructions .Route 03/14/25 06/20/25 Rx .COMPLEX #90 tabs atorvastatin 80 mg tablet See Rx Instructions .Route 03/14/25 06/20/25 Rx .COMPLEX #90 tabs isosorbide mononitrate 60 mg See Rx Instructions .Route 03/14/25 06/20/25 Rx tablet,extended release 24 hr .COMPLEX #90 tabs levothyroxine 100 mcg tablet See Rx Instructions .Route 03/14/25 06/20/25 Rx .COMPLEX #90 tabs allopurinol 100 mg tablet 100 mg PO TID #270 tabs 04/18/25 06/20/25 Rx albuterol sulfate 90 mcg/actuation See Rx Instructions .Route 05/02/25 06/20/25 Rx aerosol inhaler .COMPLEX #42.5 grams hydralazine 50 mg tablet 50 mg PO TID #270 tabs 05/02/25 06/20/25 Rx metformin 1,000 mg tablet 1,000 mg PO DAILY #90 tabs 05/26/25 06/20/25 Rx fluticasone fur. 100 mcg-umeclid 1 inh inhalation Q24H #60 ea 05/27/25 06/20/25 Rx 62.5 mcg-vilant 25 mcg inhalat.powder (Trelegy Ellipta) Allergies Allergy/AdvReac Type Severity Reaction Status Date / Time naproxen AdvReac Itching Verified 06/20/25 12:51 Vital Signs Vital Signs - 24 hr 06/25/25 11:50 06/25/25 12:00 06/25/25 12:00 Temperature 97.8 F Pulse Rate 47 L 52 L Respiratory Rate 16 Blood Pressure 164/41 H Pulse Oximetry 92 94 Oxygen Delivery Nasal Cannula Oxygen Flow Rate 3 06/25/25 14:00 06/25/25 15:55 06/25/25 16:00 Temperature 98.4 F Pulse Rate 63 56 L 52 L Respiratory Rate 24 H Blood Pressure 171/48 H Pulse Oximetry 92 Oxygen Delivery Oxygen Flow Rate 06/25/25 17:30 06/25/25 20:00 06/25/25 20:00 Temperature 98.6 F Pulse Rate 57 L 52 L 53 L Respiratory Rate 22 H 24 H Blood Pressure 162/60 H Pulse Oximetry 95 Oxygen Delivery Oxygen Flow Rate 06/25/25 20:00 06/25/25 21:02 06/25/25 21:10 Temperature Pulse Rate 54 L Respiratory Rate 18 24 H Blood Pressure Pulse Oximetry 95 90 95 Oxygen Delivery Nasal Cannula High Flow Nasal Cannula CPAP Oxygen Flow Rate 3 3 06/26/25 00:00 06/26/25 00:00 06/26/25 04:00 Temperature 98.3 F Pulse Rate 67 49 L 45 L Respiratory Rate 24 H Blood Pressure 143/43 H Pulse Oximetry 94 Oxygen Delivery Oxygen Flow Rate 06/26/25 08:00 06/26/25 09:26 06/26/25 09:34 Temperature 98.2 F Pulse Rate 49 L 63 Respiratory Rate 24 H Blood Pressure 148/47 H Pulse Oximetry 92 89 L Oxygen Delivery Nasal Cannula Oxygen Flow Rate 3 Results Labs 06/26/25 03:47 06/26/25 03:47 Labs: Short CBC 06/26/25 Range/Units 03:47 WBC 8.1 (4.5-10.0) K/mm3 Hgb 10.5 L (12.0-15.0) g/dL Hct 32.8 L (37.0-47.0) % Plt Count 173 (150-375) k/mm3 BMP 06/26/25 03:47 Sodium 131 L Potassium 4.7 Chloride 105 Carbon Dioxide 20 L BUN 70 H Creatinine 2.30 H Glucose 146 H Calcium 8.7 Liver Function 06/26/25 Range/Units 03:47 Total Bilirubin 0.6 (0.2-1.3) mg/dL AST 43 H (14-36) U/L ALT 37 H (6-35) U/L Alkaline Phosphatase 86 (38-126) U/L Albumin 3.3 L (3.5-5.1) g/dL
--- NOTE | 2025-06-26 10:49 | P.PNNP_ITS ---
Progress Note: A&P Assessment and Plan (1) Acute kidney injury: Code(s): N17.9 - Acute kidney failure, unspecified Status: Acute Assessment and Plan: * baseline creatinine runs in the 1.3-1.6 range as of a couple of months ago. * as noted on admission, creatinine was 2.26mg/dL. After admission it came down a little bit and Since then it has been up and down. Today it is a little bit better. * fluctuating since hospitalization began * possible new baseline or element of CKD progression? (see #2) * It is not clear why her creatinine is not getting better. * She does not seem dehydrated. Her peripheral eosinophils are up a little bit but still within the normal range and there is no rash. Ultrasound is unremarkable. EF is good ( however she does have pulmonary hypertension). She is not on diuretics. Her heart rate is a little fast with the AFib but not so much so that this would impact her kidney function. * several issues playing a role: * CHF exacerbation * Afib with RVR * COPD * hypoxia(?) * diuresis * ARB + HCTZ use prior to admission * other(?) * evaluation to date noted: * renal ultrasound w/o obstruction * urine electrolytes nonprerenal * urine eosinophils negative * noted proteinuria * CPK normal * check another look creatinine tomorrow (2) Stage 3b chronic kidney disease: Code(s): N18.32 - Chronic kidney disease, stage 3b Status: Chronic Assessment and Plan: * baseline creatinine seems to run ~ 1.3 - 1.7mg/dl * however, has been as high as 2.0mg/dl * this causes her to fluctuate between CKD state 3b and stage 4 * secondary to hypertension, diabetes vascular disease (CAD + hyperlipidemia), COPD/DENNIS, and age-related change * follows with Jennifer Chairez NP/Dr. Young for CKD management (3) CHF (congestive heart failure): Qualifiers: Heart failure chronicity: unspecified Heart failure type: unspecified Qualified Code(s): I50.9 - Heart failure, unspecified Code(s): I50.9 - Heart failure, unspecified Status: Acute Assessment and Plan: * suggeste by pulmonary vascular congestion on x-ray and exam * no lower extremity edema * reportedly just discharged from [facility] in December 2024 with heart failure (but not sent home on diuretics), * Echo results noted: * left ventricular systolic function is normal, estimated at 65 - 70% * mitral valve has moderately calcified leaflets and a moderately calcified annulus * mild mitral valve regurgitation * mild tricuspid valve regurgitation * severe pulmonary hypertension, estimated pulmonary arterial systolic pressure is 63 mmHg. * The patient looks less short of breath than it sounds like she was on admission. * will get another chest x-ray today. (4) Atrial fibrillation with rapid ventricular response: Code(s): I48.91 - Unspecified atrial fibrillation Status: Acute Assessment and Plan: * admission EKG showed AFib with RVR rate 155 * acheived rate control with IV Cardiazem * on heparin gtt * on sotalol * Pulse in the 40s and 50s now. (5) COPD (chronic obstructive pulmonary disease): Code(s): J44.9 - Chronic obstructive pulmonary disease, unspecified Status: Acute Assessment and Plan: * Pulmonary following with recommendations noted * on inhalers * supplemental oxygen PRN (6) Pulmonary hypertension: Code(s): I27.20 - Pulmonary hypertension, unspecified Status: Acute Assessment and Plan: * as seen on echocardiogram with RVSP of 63 mmHg * Pulmonology and Cardiology following (7) Hypertension: Qualifiers: Hypertension type: essential hypertension Qualified Code(s): I10 - Essential (primary) hypertension Code(s): I10 - Essential (primary) hypertension Status: Acute Assessment and Plan: * quite erratic control . systolis 130 to 170, generally a trend of improvement on new med doses. * off ARB due to #1 * titrated hydralazine and nifedipine to bid recently * see how blood pressure does going forward. (8) Type 2 diabetes mellitus with diabetic chronic kidney disease: Code(s): E11.22 - Type 2 diabetes mellitus with diabetic chronic kidney disease Status: Acute Assessment and Plan: * follow accu-cheks * glycemic control per hospitalist Will continue to follow. Subjective Date/time seen: 06/26/25 10:49 Interval history: patient is sitting up in a chair. She is having a little bit of shortness of breath. Some cough. No fever. Exam Narrative: General: elderly but WD/WN female in NAD Heart: IRRR, normal S1 and S2; no rub or gallop Lungs: Increased E to I ratio and some audible rhonchi. Abdomen: soft, nontender, nondistended, positive bowel sounds Extremities: trace edema Skin: no rash or subcu nodules Objective Data Vital Signs Vital Signs: Vital Signs - 24 hr 06/25/25 11:50 06/25/25 12:00 06/25/25 12:00 Temperature 97.8 F Pulse Rate 47 L 52 L Respiratory Rate 16 Blood Pressure 164/41 H Pulse Oximetry 92 94 Oxygen Delivery Nasal Cannula Oxygen Flow Rate 3 06/25/25 14:00 06/25/25 15:55 06/25/25 16:00 Temperature 98.4 F Pulse Rate 63 56 L 52 L Respiratory Rate 24 H Blood Pressure 171/48 H Pulse Oximetry 92 Oxygen Delivery Oxygen Flow Rate 06/25/25 17:30 06/25/25 20:00 06/25/25 20:00 Temperature 98.6 F Pulse Rate 57 L 52 L 53 L Respiratory Rate 22 H 24 H Blood Pressure 162/60 H Pulse Oximetry 95 Oxygen Delivery Oxygen Flow Rate 06/25/25 20:00 06/25/25 21:02 06/25/25 21:10 Temperature Pulse Rate 54 L Respiratory Rate 18 24 H Blood Pressure Pulse Oximetry 95 90 95 Oxygen Delivery Nasal Cannula High Flow Nasal Cannula CPAP Oxygen Flow Rate 3 3 06/26/25 00:00 06/26/25 00:00 06/26/25 04:00 Temperature 98.3 F Pulse Rate 67 49 L 45 L Respiratory Rate 24 H Blood Pressure 143/43 H Pulse Oximetry 94 Oxygen Delivery Oxygen Flow Rate 06/26/25 08:00 06/26/25 09:26 06/26/25 09:34 Temperature 98.2 F Pulse Rate 49 L 63 Respiratory Rate 24 H Blood Pressure 148/47 H Pulse Oximetry 92 89 L Oxygen Delivery Nasal Cannula Oxygen Flow Rate 3 Intake/Output Intake/Output: Intake & Output 06/23/25 06/24/25 06/25/25 06/26/25 23:59 23:59 23:59 23:59 Intake Total 2110.0 1388 880 50 Output Total 1050 Balance 1060.0 1388 880 50 Meds/Results Medications: Active Medications Generic Name Dose Route Start Last Admin Trade Name Freq PRN Reason Stop Dose Admin Acetaminophen 1,000 mg 06/19/25 22:44 06/22/25 21:13 Acetaminophen 500 Mg Tablet PO 1,000 mg TID PRN Administration Mild Pain (1-3) or Fever Allopurinol 100 mg 06/23/25 09:00 06/24/25 08:39 Allopurinol 100 Mg Tablet PO 100 mg Q48HR DAVID Administration Apixaban 2.5 mg 06/23/25 21:00 06/25/25 09:16 Apixaban 2.5 Mg Tablet PO 2.5 mg On Hold: 06/25/25 17:59 Q12HR DAVID Administration Aspirin 81 mg 06/20/25 09:00 06/26/25 09:35 Aspirin 81 Mg Enteric Tablet PO 81 mg DAILY DAVID Administration Atorvastatin Calcium 80 mg 06/20/25 09:55 06/26/25 09:34 Atorvastatin 40 Mg Tablet PO 80 mg DAILY DAVID Administration Dextrose 12.5 gm 06/19/25 21:30 Dextrose 50% 25 Gm/50 Ml Syringe IV PUSH PRN PRN Hypoglycemia Protocol Fluticasone Propionate 1 spray 06/20/25 09:00 06/26/25 09:33 Fluticasone Propionate 0.05% Na Spr 16 Gm Btl (*Bkc) NASAL 1 spray Q12H DAVID Administration Fluticasone/Umeclidinium/Vilanterol 1 puff 06/20/25 09:00 06/26/25 09:25 Fluticasone/Umeclidin/Vilanter 100-62.5-25 Mcg Ellipta INHALATION 1 puff Q24H DAVID Administration Glucose 15 gm 06/19/25 21:30 Glucose Oral Gel 15 Gm Of Glucse In 37.5 Gm Tube PO PRN PRN Hypoglycemia Protocol Guaifenesin 1,200 mg 06/22/25 09:20 06/26/25 09:34 Guaifenesin 12 Hr 600 Mg Tabcr PO 1,200 mg Q12HR DAVID Administration Hydralazine HCl 100 mg 06/22/25 17:00 06/26/25 09:34 Hydralazine Hcl 50 Mg Tablet PO 100 mg QID DAVID Administration Hydrochlorothiazide 12.5 mg 06/20/25 09:50 06/26/25 09:34 Hydrochlorothiazide 12.5 Mg Capsule PO 12.5 mg DAILY DAVID Administration Dextrose 1,000 mls @ 100 mls/hr 06/19/25 21:30 Dextrose 5% 1,000 Ml IVPB PRN PRN Hypoglycemia Protocol Ceftriaxone Sodium 1 gm/ 50 mls @ 100 mls/hr 06/22/25 09:00 06/26/25 10:05 Sodium Chloride IVPB Infused Q24H DAVID Infusion Levofloxacin/Dextrose 750 mg in 150 mls @ 100 mls/hr 06/22/25 09:00 06/26/25 09:33 Levaquin 750 Mg/D5w 150 Ml IVPB 100 mls/hr Q48HR DAVID Administration Insulin Aspart 2 - 5 units 06/20/25 08:00 06/26/25 08:50 Insulin Aspart (*Bkc) 100 Units/Ml SUB-Q Not Given TIDWM DAVID Protocol Insulin Aspart 1 - 2 units 06/20/25 21:00 06/25/25 20:40 Insulin Aspart (*Bkc) 100 Units/Ml SUB-Q 1 units HS DAVID Administration Protocol Isosorbide Mononitrate 60 mg 06/20/25 09:50 06/26/25 09:34 Isosorbide Mononitrate 60 Mg Tab.Er.24h PO 60 mg DAILY DAVID Administration Levalbuterol HCl 0.63 mg 06/21/25 19:41 06/25/25 17:29 Levalbuterol Neb 1.25 Mg/3 Ml INHALATION 0.63 mg Q6HRT PRN Administration shortness of breath Levothyroxine Sodium 100 mcg 06/21/25 06:30 06/26/25 06:40 Levothyroxine Sodium 100 Mcg Tablet PO 100 mcg DAILY@0630 DAVID Administration Losartan Potassium 100 mg 06/20/25 09:00 06/22/25 09:16 Losartan Potassium 100 Mg Tablet PO 100 mg On Hold: 06/22/25 15:20 DAILY DAVID Administration Nifedipine 30 mg 06/24/25 18:10 06/26/25 09:34 Nifedipine 30 Mg Tab.Er.24 PO 30 mg BID DAVID Administration Sotalol HCl 40 mg 06/21/25 09:00 06/26/25 09:34 Sotalol Hcl 40 Mg Tablet PO 40 mg DAILY DAVID Administration Radiology Results: ITS Impressions Pulmonary Perfusion Imaging 06/21/25 11:25 IMPRESSION: No compelling or large segmental size areas of mismatch, and with right base findings on today's chest x-ray, the perfusion mismatch in the right base is of uncertain significance. Per PIOPED criteria, this is an indeterminate INTERMEDIATE probability for pulmonary embolus. Renal Ultrasound 06/21/25 13:56 IMPRESSION: 1. Normal kidneys without hydronephrosis. Chest CT 06/21/25 14:30 IMPRESSION: 1. Bibasilar consolidations likely associated with aspiration versus community- acquired pneumonia. Mucoid appearing changes in the bronchi endotracheal air column support aspiration. Findings should be followed radiographically until clear. 2. Other chronic appearing findings. Chest X-Ray 06/22/25 07:45 IMPRESSION: 1. Stable to mildly improved appearance of interstitial/vascular markings. Arterial/Peripheral Duplex 06/25/25 14:48 IMPRESSION: 1. No Doppler evidence of renal artery stenosis. Labs Labs: Laboratory Results - last 24 hr 06/25/25 06/25/25 06/25/25 11:14 16:50 20:29 WBC RBC Hgb Hct MCV MCH MCHC RDW Plt Count MPV Immature Gran % (Auto) Neut % (Auto) Lymph % (Auto) [place] % (Auto) Eos % (Auto) Baso % (Auto) Lymph # (Auto) [place] # (Auto) Eos # (Auto) Baso # (Auto) Abs Immat Gran (auto) Absolute Neuts (auto) Absolute Nucleated RBC Nucleated RBC % Sodium Potassium Chloride Carbon Dioxide Anion Gap BUN Creatinine Estim Creat Clear Calc Estimated GFR Glucose POC Capillary Glucose 225 H 157 H 206 H Calcium Phosphorus Magnesium Total Bilirubin AST ALT Alkaline Phosphatase Total Protein Albumin 06/26/25 06/26/25 03:47 07:46 WBC 8.1 RBC 3.23 L Hgb 10.5 L Hct 32.8 L MCV 101.5 H MCH 32.5 MCHC 32.0 RDW 14.4 Plt Count 173 MPV 11.7 H Immature Gran % (Auto) 0.7 H Neut % (Auto) 59.9 Lymph % (Auto) 27.9 [place] % (Auto) 9.1 H Eos % (Auto) 1.9 Baso % (Auto) 0.5 Lymph # (Auto) 2.26 [place] # (Auto) 0.7 H Eos # (Auto) 0.2 Baso # (Auto) 0.0 Abs Immat Gran (auto) 0.06 H Absolute Neuts (auto) 4.8 Absolute Nucleated RBC 0.000 Nucleated RBC % 0.0 Sodium 131 L Potassium 4.7 Chloride 105 Carbon Dioxide 20 L Anion Gap 6 BUN 70 H Creatinine 2.30 H Estim Creat Clear Calc 20 Estimated GFR 21 L Glucose 146 H POC Capillary Glucose 161 H Calcium 8.7 Phosphorus 4.2 Magnesium 2.7 H Total Bilirubin 0.6 AST 43 H ALT 37 H Alkaline Phosphatase 86 Total Protein 6.0 L Albumin 3.3 L
--- NOTE | 2025-06-26 12:00 | P.PNIM_ITS ---
Progress Note: A&P Assessment and Plan (1) CHF (congestive heart failure): Qualifiers: Heart failure chronicity: unspecified Heart failure type: unspecified Qualified Code(s): I50.9 - Heart failure, unspecified Code(s): I50.9 - Heart failure, unspecified Status: Acute Assessment and Plan: Pulmonary vascular congestion on x-ray/auscultation of lungs. No lower extremity edema. Reports she was discharged from [facility] in December 2024 with heart failure but not sent home on diuretics. Patient did receive 1 L normal saline bolus in the ER, -admitted with AFib with RVR is controlled we will monitor. Continue heparin gtt. - Daily weights, strict intake/output. -Pt diagnosed with CHF December 2024 with no new meds. -06/21: V/Q scan showed intermediate probability for PE -06/21: overnight patient had increased oxygen requirements, currently on 8 L nasal cannula -06/21: Chest x-ray showed pulmonary vascular congestion, will give Lasix - patient may have HFpEF since she has diastolic dysfunction as seen on echocardiogram is under which could be related to her systemic hypertension and pulmonary hypertension 06/23: Adjusted oral antihypertensive medication. Holding losartan due to DEBBIE on CKD. Increase hydralazine from 75 mg 100 mg qid.. Added nifedipine 30 mg p.o. q.d.. Will continue hydrochlorothiazide 12.5 mg p.o. q.d. and isosorbide mononitrate 60 mg p.o. q.d. and sotalol 40 mg p.o. q.d. Nifedipine increased to 30 mg b.i.d. losartan remains on hold Recheck chest x-ray 06/20/25: Echocardiogram Summary 1. Definity contrast administered improved wall motion interpretation. 2. Left ventricular chamber dimension is normal. 3. Left ventricular systolic function is normal, estimated at 65-70. 4. There is moderate concentric increased left ventricular wall thickness. 5. E/e' 48 is significantly elevated. 6. Left atrial chamber dimension is severely enlarged. 7. The mitral valve has moderately calcified leaflets and a moderately calcified annulus. 8. There is mild mitral valve regurgitation. 9. There is mild tricuspid valve regurgitation. 10. Severe pulmonary hypertension, estimated pulmonary arterial systolic pressure is 63 mmHg. 11. Dilated inferior vena cava with >50% collapse upon inspiration consistent with elevated right atrial pressure, 10 mmHg. (2) Atrial fibrillation with rapid ventricular response: Code(s): I48.91 - Unspecified atrial fibrillation Status: Acute Assessment and Plan: ED EKG showed AFib with RVR rate 155, patient received Cardizem 15 mg IV x1, with subsequent rate control an EKG demonstrating AFib. Shortness of breath resolved. Currently AFib with controlled rate. Stop the heparin and started Eliquis -appreciate cardiology evaluation recommendation -06/20: started on sotalol b.i.d. which has been decreased to once daily due to bradycardia (on 06/21) -TSH within normal limits, -magnesium and potassium levels within normal limits -continue IMU status -started patient on Eliquis -echocardiogram as above Eliquis on hold due to vaginal bleed (3) DEBBIE (acute kidney injury): Code(s): N17.9 - Acute kidney failure, unspecified Status: Acute Assessment and Plan: Now that her AFib with RVR is controlled we will monitor. Daily weights, strict intake/output. -1L given in ED, pt with CHF hx (new December 2024) -DEBBIE could be related to elevated blood pressure, CHF, atrial fibrillation 06/20: Creatinine baseline seems to be around 1.3-1.6, -creatinine gradually improving -continue blood pressure medications -nephrology on board Losartan on hold (4) Chronic kidney disease, stage 3b: Code(s): N18.32 - Chronic kidney disease, stage 3b Status: Acute Assessment and Plan: Holding losartan Increasing hydralazine from 75 mg to 100 q.i.d. Holding losartan due to DEBBIE on CKD. Increase hydralazine from 75 mg 100 mg qid.. Added nifedipine 30 mg p.o. q.d.. Will continue hydrochlorothiazide 12.5 mg p.o. q.d. and isosorbide mononitrate 60 mg p.o. q.d. and sotalol 40 mg p.o. q.d. Nifedipine increased to 30 mg b.i.d. (5) COPD (chronic obstructive pulmonary disease): Code(s): J44.9 - Chronic obstructive pulmonary disease, unspecified Status: Acute Assessment and Plan: Mild COPD exacerbation, her symptoms could have been related to AFib and pulmonary vascular congestion. received Solu-Medrol with EMS. 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 06/20: Pt with clear lungs today -Steroids given in ED, if wheezing continues, may give additional steroids. -06/21: Increasing oxygen requirements. - Appreciate pulmonology evaluation -patient with HFpEF, possible COPD, possible PE as V/Q scan on 06/21 showed intermediate probability -continue anticoagulation -continue Trelegy per pulmonology (6) CAD (coronary artery disease): Qualifiers: Coronary Disease-Associated Artery/Lesion type: unspecified vessel or lesion type [place] vs. transplanted heart: unspecified whether [place] or transplanted heart Associated angina: unspecified whether angina present Qualified Code(s): I25.10 - Atherosclerotic heart disease of [place] coronary artery without angina pectoris Code(s): I25.10 - Atherosclerotic heart disease of [place] coronary artery without angina pectoris Status: Acute Assessment and Plan: 06/20: S/p stents. 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 (7) Type 2 diabetes mellitus with diabetic chronic kidney disease: Code(s): E11.22 - Type 2 diabetes mellitus with diabetic chronic kidney disease Status: Acute Assessment and Plan: Accu-Cheks ACHS with low-dose insulin sliding scale and hypoglycemia protocol. (8) Hypertension: Qualifiers: Hypertension type: essential hypertension Qualified Code(s): I10 - Essential (primary) hypertension Code(s): I10 - Essential (primary) hypertension Status: Acute Assessment and Plan: Acute on chronic. 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 Patient does state that her blood pressures are normally in the 160s to 180s range -increase hydralazine 75 mg Q i.d. to 100 mg q.i.d. -Continue to monitor -continue isosorbide 60 mg p.o. q.d., nifedipine 30 mg p.o. q.d., sotalol 40 mg p.o. q.d. nifedipine increased to 30 mg b.i.d. Renal ultrasound negative for renal artery stenosis Losartan on hold due to DEBBIE (9) Pulmonary hypertension: Code(s): I27.20 - Pulmonary hypertension, unspecified Status: Acute Assessment and Plan: Severe pulmonary hypertension as seen on echocardiogram with RVSP of 63 mmHg -pulmonology and cardiology following the patient Plan Vaginal bleed: Pelvic ultrasound pending. Gynecology consulted DVT prophylaxis: Apixaban which is currently on hold Stress ulcer prophylaxis: Not indicated Nutrition: Diabetic and heart healthy diet Code Status: DNR Subjective Date/time seen: 06/26/25 12:00 Interval history: Patient complained of having vaginal bleed last evening. Eliquis is held and the bleeding as slowed down. Shortness of breath with exertion which is about the same. Minimal cough. Review of Systems Review of Systems: All systems reviewed & are unremarkable except as noted in HPI and below Exam Narrative: General: Pleasant female, not in acute distress HEENT:? Pupils equal reactive, sclera is clear, moist oral mucosa Neck:? Supple Respiratory:? Coarse breath sounds bilaterally, decreased at bases, no wheezing Cardiac:? Is irregularly irregular, rate controlled/bradycardia sinus on telemetry Abdomen:? Soft, nontender, nondistended, protuberant, normoactive bowel sounds Extremities:? Extremities are warm, no cyanosis, no edema Neuro:? Patient is awake, alert, oriented, nonfocal, moving all extremities Skin:? No lesions noted Psych:? Normal mentation and affect Objective Data Vital Signs Vital Signs: Vital Signs - 24 hr 06/25/25 14:00 06/25/25 15:55 06/25/25 16:00 Temperature 98.4 F Pulse Rate 63 56 L 52 L Respiratory Rate 24 H Blood Pressure 171/48 H Pulse Oximetry 92 Oxygen Delivery Oxygen Flow Rate 06/25/25 17:30 06/25/25 20:00 06/25/25 20:00 Temperature 98.6 F Pulse Rate 57 L 52 L 53 L Respiratory Rate 22 H 24 H Blood Pressure 162/60 H Pulse Oximetry 95 Oxygen Delivery Oxygen Flow Rate 06/25/25 20:00 06/25/25 21:02 06/25/25 21:10 Temperature Pulse Rate 54 L Respiratory Rate 18 24 H Blood Pressure Pulse Oximetry 95 90 95 Oxygen Delivery Nasal Cannula High Flow Nasal Cannula CPAP Oxygen Flow Rate 3 3 06/26/25 00:00 06/26/25 00:00 06/26/25 04:00 Temperature 98.3 F Pulse Rate 67 49 L 45 L Respiratory Rate 24 H Blood Pressure 143/43 H Pulse Oximetry 94 Oxygen Delivery Oxygen Flow Rate 06/26/25 08:00 06/26/25 09:26 06/26/25 09:34 Temperature 98.2 F Pulse Rate 49 L 63 Respiratory Rate 24 H Blood Pressure 148/47 H Pulse Oximetry 92 89 L Oxygen Delivery Nasal Cannula Oxygen Flow Rate 3 Intake/Output Intake/Output: Intake & Output 06/23/25 06/24/25 06/25/25 06/26/25 23:59 23:59 23:59 23:59 Intake Total 2110.0 1388 880 290 Output Total 1050 Balance 1060.0 1388 880 290 Meds/Results Medications: Active Medications Generic Name Dose Route Start Last Admin Trade Name Freq PRN Reason Stop Dose Admin Acetaminophen 1,000 mg 06/19/25 22:44 06/22/25 21:13 Acetaminophen 500 Mg Tablet PO 1,000 mg TID PRN Administration Mild Pain (1-3) or Fever Allopurinol 100 mg 06/23/25 09:00 06/24/25 08:39 Allopurinol 100 Mg Tablet PO 100 mg Q48HR DAVID Administration Apixaban 2.5 mg 06/23/25 21:00 06/25/25 09:16 Apixaban 2.5 Mg Tablet PO 2.5 mg On Hold: 06/25/25 17:59 Q12HR DAVID Administration Aspirin 81 mg 06/20/25 09:00 06/26/25 09:35 Aspirin 81 Mg Enteric Tablet PO 81 mg DAILY DAVID Administration Atorvastatin Calcium 80 mg 06/20/25 09:55 06/26/25 09:34 Atorvastatin 40 Mg Tablet PO 80 mg DAILY DAVID Administration Dextrose 12.5 gm 06/19/25 21:30 Dextrose 50% 25 Gm/50 Ml Syringe IV PUSH PRN PRN Hypoglycemia Protocol Fluticasone Propionate 1 spray 06/20/25 09:00 06/26/25 09:33 Fluticasone Propionate 0.05% Na Spr 16 Gm Btl (*Bkc) NASAL 1 spray Q12H DAVID Administration Fluticasone/Umeclidinium/Vilanterol 1 puff 06/20/25 09:00 06/26/25 09:25 Fluticasone/Umeclidin/Vilanter 100-62.5-25 Mcg Ellipta INHALATION 1 puff Q24H DAVID Administration Glucose 15 gm 06/19/25 21:30 Glucose Oral Gel 15 Gm Of Glucse In 37.5 Gm Tube PO PRN PRN Hypoglycemia Protocol Guaifenesin 1,200 mg 06/22/25 09:20 06/26/25 09:34 Guaifenesin 12 Hr 600 Mg Tabcr PO 1,200 mg Q12HR DAVID Administration Hydralazine HCl 100 mg 06/22/25 17:00 06/26/25 09:34 Hydralazine Hcl 50 Mg Tablet PO 100 mg QID DAVID Administration Hydrochlorothiazide 12.5 mg 06/20/25 09:50 06/26/25 09:34 Hydrochlorothiazide 12.5 Mg Capsule PO 12.5 mg DAILY DAVID Administration Dextrose 1,000 mls @ 100 mls/hr 06/19/25 21:30 Dextrose 5% 1,000 Ml IVPB PRN PRN Hypoglycemia Protocol Ceftriaxone Sodium 1 gm/ 50 mls @ 100 mls/hr 06/22/25 09:00 06/26/25 10:05 Sodium Chloride IVPB Infused Q24H DAVID Infusion Levofloxacin/Dextrose 750 mg in 150 mls @ 100 mls/hr 06/22/25 09:00 06/26/25 09:33 Levaquin 750 Mg/D5w 150 Ml IVPB 100 mls/hr Q48HR DAVID Administration Insulin Aspart 2 - 5 units 06/20/25 08:00 06/26/25 08:50 Insulin Aspart (*Bkc) 100 Units/Ml SUB-Q Not Given TIDWM DAVID Protocol Insulin Aspart 1 - 2 units 06/20/25 21:00 06/25/25 20:40 Insulin Aspart (*Bkc) 100 Units/Ml SUB-Q 1 units HS DAVID Administration Protocol Isosorbide Mononitrate 60 mg 06/20/25 09:50 06/26/25 09:34 Isosorbide Mononitrate 60 Mg Tab.Er.24h PO 60 mg DAILY DAVID Administration Levalbuterol HCl 0.63 mg 06/21/25 19:41 06/25/25 17:29 Levalbuterol Neb 1.25 Mg/3 Ml INHALATION 0.63 mg Q6HRT PRN Administration shortness of breath Levothyroxine Sodium 100 mcg 06/21/25 06:30 06/26/25 06:40 Levothyroxine Sodium 100 Mcg Tablet PO 100 mcg DAILY@0630 DAVID Administration Losartan Potassium 100 mg 06/20/25 09:00 06/22/25 09:16 Losartan Potassium 100 Mg Tablet PO 100 mg On Hold: 06/22/25 15:20 DAILY DAVID Administration Nifedipine 30 mg 06/24/25 18:10 06/26/25 09:34 Nifedipine 30 Mg Tab.Er.24 PO 30 mg BID DAVID Administration Sotalol HCl 40 mg 06/21/25 09:00 06/26/25 09:34 Sotalol Hcl 40 Mg Tablet PO 40 mg DAILY DAVID Administration Radiology Results: ITS Impressions Pulmonary Perfusion Imaging 06/21/25 11:25 IMPRESSION: No compelling or large segmental size areas of mismatch, and with right base findings on today's chest x-ray, the perfusion mismatch in the right base is of uncertain significance. Per PIOPED criteria, this is an indeterminate INTERMEDIATE probability for pulmonary embolus. Renal Ultrasound 06/21/25 13:56 IMPRESSION: 1. Normal kidneys without hydronephrosis. Chest CT 06/21/25 14:30 IMPRESSION: 1. Bibasilar consolidations likely associated with aspiration versus community- acquired pneumonia. Mucoid appearing changes in the bronchi endotracheal air column support aspiration. Findings should be followed radiographically until clear. 2. Other chronic appearing findings. Arterial/Peripheral Duplex 06/25/25 14:48 IMPRESSION: 1. No Doppler evidence of renal artery stenosis. Labs Labs: Laboratory Results - last 24 hr 06/25/25 06/25/25 06/26/25 16:50 20:29 03:47 WBC 8.1 RBC 3.23 L Hgb 10.5 L Hct 32.8 L MCV 101.5 H MCH 32.5 MCHC 32.0 RDW 14.4 Plt Count 173 MPV 11.7 H Immature Gran % (Auto) 0.7 H Neut % (Auto) 59.9 Lymph % (Auto) 27.9 [place] % (Auto) 9.1 H Eos % (Auto) 1.9 Baso % (Auto) 0.5 Lymph # (Auto) 2.26 [place] # (Auto) 0.7 H Eos # (Auto) 0.2 Baso # (Auto) 0.0 Abs Immat Gran (auto) 0.06 H Absolute Neuts (auto) 4.8 Absolute Nucleated RBC 0.000 Nucleated RBC % 0.0 Sodium 131 L Potassium 4.7 Chloride 105 Carbon Dioxide 20 L Anion Gap 6 BUN 70 H Creatinine 2.30 H Estim Creat Clear Calc 20 Estimated GFR 21 L Glucose 146 H POC Capillary Glucose 157 H 206 H Calcium 8.7 Phosphorus 4.2 Magnesium 2.7 H Total Bilirubin 0.6 AST 43 H ALT 37 H Alkaline Phosphatase 86 Total Protein 6.0 L Albumin 3.3 L 06/26/25 06/26/25 07:46 11:08 WBC RBC Hgb Hct MCV MCH MCHC RDW Plt Count MPV Immature Gran % (Auto) Neut % (Auto) Lymph % (Auto) [place] % (Auto) Eos % (Auto) Baso % (Auto) Lymph # (Auto) [place] # (Auto) Eos # (Auto) Baso # (Auto) Abs Immat Gran (auto) Absolute Neuts (auto) Absolute Nucleated RBC Nucleated RBC % Sodium Potassium Chloride Carbon Dioxide Anion Gap BUN Creatinine Estim Creat Clear Calc Estimated GFR Glucose POC Capillary Glucose 161 H 275 H Calcium Phosphorus Magnesium Total Bilirubin AST ALT Alkaline Phosphatase Total Protein Albumin
[2025-06-26] MEDS: INSULIN ASPART (*BKC) 100 UNITS/ML SUB-Q ×2 (13:05→20:00)
[2025-06-27] VITALS (20 sets, daily range): BP systolic 154–176; BP diastolic 29–50; PULSE 45–64; RESP 18–23; TEMP 36.4–37.1; O2SAT 91–96
[2025-06-27 04:38] LABS: Hematocrit 31.6 % (37.0-47.0); Hemoglobin 10.1 g/dL (12.0-15.0); Immature Granulocyte Percent A 0.5 % (0-0.5); Lymphocytes Absolute Auto 2.05 K/mm3 (0.9-3.2); Mean Corpuscular HGB Conc 32.0 g/dl (32-36); Mean Corpuscular Hemoglobin 32.0 pg (26-34); Mean Corpuscular Volume 100.0 fl (80-100); Nucleated Red Blood Cells Absolute Auto 0.000 K/mm3 (0.0-0.012); Nucleated Red Blood Cells Perc 0.0 % (0.0-0.2); Platelet Count Result 179 k/mm3 (150-375); Red Blood Count 3.16 M/mm3 (4.2-5.4); White Blood Count 9.4 K/mm3 (4.5-10.0)
[2025-06-27 04:59] LABS: Alanine Aminotransferase 36 U/L (6-35); Albumin Level 3.2 g/dL (3.5-5.1); Alkaline Phosphatase 83 U/L (38-126); Anion Gap 8 mmol/L (4-12); Aspartate Amino Transferase 36 U/L (14-36); Bilirubin,Total 0.6 mg/dL (0.2-1.3); Blood Urea Nitrogen 75 mg/dL (7-17); Calcium 8.6 mg/dL (8.4-10.2); Carbon Dioxide 19 mmol/L (22-30); Chloride 105 mmol/L (98-107); Estimated CRCL calculation 21 ml/min; Estimated Glomerular Filt Rate 21; Glucose 152 mg/dL (65-110); Magnesium 2.7 mg/dL (1.6-2.3); Potassium 4.8 mmol/L (3.4-5.0); Sodium 132 mmol/L (137-145); Total Protein 6.1 g/dL (6.3-8.2)
[2025-06-27] MEDS: LEVOTHYROXINE SODIUM 100 MCG TABLET PO (06:27)
[2025-06-27] MEDS: FLUTICASONE/UMECLIDIN/VILANTER 100-62.5-25 MCG ELLIPTA 1 PUFF INHALATION (07:12)
--- NOTE | 2025-06-27 07:39 | P.PNIM_ITS ---
Progress Note: A&P Assessment and Plan (1) CHF (congestive heart failure): Qualifiers: Heart failure chronicity: unspecified Heart failure type: unspecified Qualified Code(s): I50.9 - Heart failure, unspecified Code(s): I50.9 - Heart failure, unspecified Status: Acute Assessment and Plan: Pulmonary vascular congestion on x-ray/auscultation of lungs. No lower extremity edema. Reports she was discharged from [facility] in December 2024 with heart failure but not sent home on diuretics. Patient did receive 1 L normal saline bolus in the ER, -admitted with AFib with RVR is controlled we will monitor. Continue heparin gtt. - Daily weights, strict intake/output. -Pt diagnosed with CHF December 2024 with no new meds. -06/21: V/Q scan showed intermediate probability for PE -06/21: overnight patient had increased oxygen requirements, currently on 8 L nasal cannula -06/21: Chest x-ray showed pulmonary vascular congestion, will give Lasix - patient may have HFpEF since she has diastolic dysfunction as seen on echocardiogram is under which could be related to her systemic hypertension and pulmonary hypertension 06/23: Adjusted oral antihypertensive medication. Holding losartan due to DEBBIE on CKD. Increase hydralazine from 75 mg 100 mg qid.. Added nifedipine 30 mg p.o. q.d.. Will continue hydrochlorothiazide 12.5 mg p.o. q.d. and isosorbide mononitrate 60 mg p.o. q.d. and sotalol 40 mg p.o. q.d. Nifedipine increased to 30 mg b.i.d. losartan remains on hold Recheck chest x-ray 06/20/25: Echocardiogram Summary 1. Definity contrast administered improved wall motion interpretation. 2. Left ventricular chamber dimension is normal. 3. Left ventricular systolic function is normal, estimated at 65-70. 4. There is moderate concentric increased left ventricular wall thickness. 5. E/e' 48 is significantly elevated. 6. Left atrial chamber dimension is severely enlarged. 7. The mitral valve has moderately calcified leaflets and a moderately calcified annulus. 8. There is mild mitral valve regurgitation. 9. There is mild tricuspid valve regurgitation. 10. Severe pulmonary hypertension, estimated pulmonary arterial systolic pressure is 63 mmHg. 11. Dilated inferior vena cava with >50% collapse upon inspiration consistent with elevated right atrial pressure, 10 mmHg. (2) Atrial fibrillation with rapid ventricular response: Code(s): I48.91 - Unspecified atrial fibrillation Status: Acute Assessment and Plan: ED EKG showed AFib with RVR rate 155, patient received Cardizem 15 mg IV x1, with subsequent rate control an EKG demonstrating AFib. Shortness of breath resolved. Currently AFib with controlled rate. Stop the heparin and started Eliquis -appreciate cardiology evaluation recommendation -06/20: started on sotalol b.i.d. which has been decreased to once daily due to bradycardia (on 06/21) -TSH within normal limits, -magnesium and potassium levels within normal limits -continue IMU status -started patient on Eliquis -echocardiogram as above Eliquis on hold due to vaginal bleed (3) DEBBIE (acute kidney injury): Code(s): N17.9 - Acute kidney failure, unspecified Status: Acute Assessment and Plan: Now that her AFib with RVR is controlled we will monitor. Daily weights, strict intake/output. -1L given in ED, pt with CHF hx (new December 2024) -DEBBIE could be related to elevated blood pressure, CHF, atrial fibrillation 06/20: Creatinine baseline seems to be around 1.3-1.6, -creatinine gradually improving -continue blood pressure medications -nephrology on board Losartan on hold (4) Chronic kidney disease, stage 3b: Code(s): N18.32 - Chronic kidney disease, stage 3b Status: Acute Assessment and Plan: Holding losartan Increasing hydralazine from 75 mg to 100 q.i.d. Holding losartan due to DEBBIE on CKD. Increase hydralazine from 75 mg 100 mg qid.. Added nifedipine 30 mg p.o. q.d.. Will continue hydrochlorothiazide 12.5 mg p.o. q.d. and isosorbide mononitrate 60 mg p.o. q.d. and sotalol 40 mg p.o. q.d. Nifedipine increased to 30 mg b.i.d. (5) COPD (chronic obstructive pulmonary disease): Code(s): J44.9 - Chronic obstructive pulmonary disease, unspecified Status: Acute Assessment and Plan: Mild COPD exacerbation, her symptoms could have been related to AFib and pulmonary vascular congestion. received Solu-Medrol with EMS. 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 06/20: Pt with clear lungs today -Steroids given in ED, if wheezing continues, may give additional steroids. -06/21: Increasing oxygen requirements. - Appreciate pulmonology evaluation -patient with HFpEF, possible COPD, possible PE as V/Q scan on 06/21 showed intermediate probability -continue anticoagulation -continue Trelegy per pulmonology (6) CAD (coronary artery disease): Qualifiers: Associated angina: unspecified whether angina present Coronary Disease- Associated Artery/Lesion type: unspecified vessel or lesion type [place] vs. transplanted heart: unspecified whether [place] or transplanted heart Qualified Code(s): I25.10 - Atherosclerotic heart disease of [place] coronary artery without angina pectoris Code(s): I25.10 - Atherosclerotic heart disease of [place] coronary artery without angina pectoris Status: Acute Assessment and Plan: 06/20: S/p stents. Resume DAMAGE ASSESSOR aspirin and atorvastatin. (7) Type 2 diabetes mellitus with diabetic chronic kidney disease: Code(s): E11.22 - Type 2 diabetes mellitus with diabetic chronic kidney disease Status: Acute Assessment and Plan: Accu-Cheks ACHS with low-dose insulin sliding scale and hypoglycemia protocol. (8) Hypertension: Qualifiers: Hypertension type: essential hypertension Qualified Code(s): I10 - Essential (primary) hypertension Code(s): I10 - Essential (primary) hypertension Status: Acute Assessment and Plan: Acute on chronic. DAMAGE ASSESSOR antihypertensives once med rec entered. Patient does state that her blood pressures are normally in the 160s to 180s range -increase hydralazine 75 mg Q i.d. to 100 mg q.i.d. -Continue to monitor -continue isosorbide 60 mg p.o. q.d., nifedipine 30 mg p.o. q.d., sotalol 40 mg p.o. q.d. nifedipine increased to 30 mg b.i.d. Renal ultrasound negative for renal artery stenosis Losartan on hold due to DEBBIE (9) Pulmonary hypertension: Code(s): I27.20 - Pulmonary hypertension, unspecified Status: Acute Assessment and Plan: Severe pulmonary hypertension as seen on echocardiogram with RVSP of 63 mmHg -pulmonology and cardiology following the patient (10) Vaginal bleeding: Code(s): N93.9 - Abnormal uterine and vaginal bleeding, unspecified Status: Acute Assessment and Plan: Reviewed ultrasound which shows possible neoplasm Biopsy as per gynecology recommendations Continue hold Eliquis Gynecology following Monitor H&H Plan Vaginal bleed: Pelvic ultrasound pending. Gynecology consulted DVT prophylaxis: Apixaban which is currently on hold Stress ulcer prophylaxis: Not indicated Nutrition: Diabetic and heart healthy diet Code Status: DNR Subjective Date/time seen: 06/27/25 07:39 Interval history: Will continue to hold Eliquis. Patient has uterine cavity measuring 3.2 x 2.2 x 2.5 cm consistent for endometrial neoplasm. Biopsy as per Gynecology recommendation. Patient reports of minimal vaginal bleeding today Review of Systems Review of Systems: All systems reviewed & are unremarkable except as noted in HPI and below Exam Narrative: General: Pleasant female, not in acute distress HEENT:? Pupils equal reactive, sclera is clear, moist oral mucosa Neck:? Supple Respiratory:? Coarse breath sounds bilaterally, decreased at bases, no wheezing Cardiac:? Is irregularly irregular, rate controlled/bradycardia sinus on telemetry Abdomen:? Soft, nontender, nondistended, protuberant, normoactive bowel sounds Extremities:? Extremities are warm, no cyanosis, no edema Neuro:? Patient is awake, alert, oriented, nonfocal, moving all extremities Skin:? No lesions noted Psych:? Normal mentation and affect Const: General: comfortable and no acute distress Other: A&O x4, obese HENMT: Mouth: Yes moist mucous membranes Eyes: General: appearance normal, both eyes and all related structures Sclera: sclerae normal Pupils: Equal, round and reactive pupils present Neck: Neck: supple Carotids: no bruits Resp: Effort & Inspection: normal respiratory effort Other: Diminished lung sounds, no wheezes present. Tachypneic initially, resolved Cardio: Rate: regular rate Rhythm: regular rhythm and abnormal rhythm Other: Tele: 61bpm GI: Inspection: non-distended Auscultation: normal bowel sounds : General: Yes bladder normal to palpation Bimanual exam- vagina & gil marlene: bladder normal to palpation Skin: General skin exam: normal color and no rashes or lesions noted Neuro: Cranial nerves: Yes Equal, round and reactive pupils present Motor exam (neuro): 5/5 motor strength present throughout and Normal motor muscle tone present throughout Sensory Exam: normal sensation Extrem: General: no edema Psych: Mental Status: mental status grossly normal Affect: normal affect Objective Data Vital Signs Vital Signs: Vital Signs - 24 hr 06/26/25 08:00 06/26/25 08:00 06/26/25 08:00 Temperature 98.2 F Pulse Rate 49 L 48 L Respiratory Rate 24 H Blood Pressure 148/47 H Pulse Oximetry 92 94 Oxygen Delivery Nasal Cannula Oxygen Flow Rate 3 Fraction of Inspired Oxygen 55 06/26/25 09:26 06/26/25 09:34 06/26/25 12:00 Temperature Pulse Rate 63 58 L Respiratory Rate Blood Pressure Pulse Oximetry 89 L Oxygen Delivery Nasal Cannula Oxygen Flow Rate 3 Fraction of Inspired Oxygen 06/26/25 15:36 06/26/25 16:00 06/26/25 19:27 Temperature 98.2 F 97.9 F Pulse Rate 54 L 53 L 57 L Respiratory Rate 20 24 H Blood Pressure 161/44 H 163/60 H Pulse Oximetry 93 90 Oxygen Delivery Oxygen Flow Rate Fraction of Inspired Oxygen 06/26/25 20:00 06/26/25 20:00 06/26/25 20:02 Temperature Pulse Rate 68 55 L Respiratory Rate 20 Blood Pressure Pulse Oximetry 90 Oxygen Delivery Nasal Cannula Oxygen Flow Rate 4 Fraction of Inspired Oxygen 06/26/25 20:02 06/26/25 20:11 06/27/25 00:00 Temperature Pulse Rate 52 L 52 L 49 L Respiratory Rate 20 20 Blood Pressure Pulse Oximetry 93 Oxygen Delivery CPAP Oxygen Flow Rate Fraction of Inspired Oxygen 06/27/25 00:00 06/27/25 01:59 06/27/25 04:00 Temperature 97.5 F L Pulse Rate 50 L 45 L 48 L Respiratory Rate 21 H 21 H Blood Pressure 175/45 H Pulse Oximetry 93 92 Oxygen Delivery CPAP Oxygen Flow Rate Fraction of Inspired Oxygen 06/27/25 04:37 06/27/25 07:12 06/27/25 07:12 Temperature 97.5 F L Pulse Rate 46 L 55 L 55 L Respiratory Rate 21 H 18 18 Blood Pressure 154/47 H Pulse Oximetry 93 94 Oxygen Delivery High Flow Nasal Cannula Oxygen Flow Rate 3 Fraction of Inspired Oxygen Intake/Output Intake/Output: Intake & Output 06/24/25 06/25/25 06/26/25 06/27/25 23:59 23:59 23:59 23:59 Intake Total 4468 104 0440 200 Output Total 300 600 Balance 1388 880 700 -400 Meds/Results Medications: Active Medications Generic Name Dose Route Start Last Admin Trade Name Freq PRN Reason Stop Dose Admin Acetaminophen 1,000 mg 06/19/25 22:44 06/22/25 21:13 Acetaminophen 500 Mg Tablet PO 1,000 mg TID PRN Administration Mild Pain (1-3) or Fever Allopurinol 100 mg 06/23/25 09:00 06/24/25 08:39 Allopurinol 100 Mg Tablet PO 100 mg Q48HR DAVID Administration Apixaban 2.5 mg 06/23/25 21:00 06/25/25 09:16 Apixaban 2.5 Mg Tablet PO 2.5 mg On Hold: 06/25/25 17:59 Q12HR DAVID Administration Aspirin 81 mg 06/20/25 09:00 06/26/25 09:35 Aspirin 81 Mg Enteric Tablet PO 81 mg DAILY DAVID Administration Atorvastatin Calcium 80 mg 06/20/25 09:55 06/26/25 09:34 Atorvastatin 40 Mg Tablet PO 80 mg DAILY DAVID Administration Dextrose 12.5 gm 06/19/25 21:30 Dextrose 50% 25 Gm/50 Ml Syringe IV PUSH PRN PRN Hypoglycemia Protocol Fluticasone Propionate 1 spray 06/20/25 09:00 06/26/25 20:00 Fluticasone Propionate 0.05% Na Spr 16 Gm Btl (*Bkc) NASAL 1 spray Q12H DAVID Administration Fluticasone/Umeclidinium/Vilanterol 1 puff 06/20/25 09:00 06/27/25 07:12 Fluticasone/Umeclidin/Vilanter 100-62.5-25 Mcg Ellipta INHALATION 1 puff Q24H DAVID Administration Glucose 15 gm 06/19/25 21:30 Glucose Oral Gel 15 Gm Of Glucse In 37.5 Gm Tube PO PRN PRN Hypoglycemia Protocol Guaifenesin 1,200 mg 06/22/25 09:20 06/26/25 20:00 Guaifenesin 12 Hr 600 Mg Tabcr PO 1,200 mg Q12HR DAVID Administration Hydralazine HCl 100 mg 06/22/25 17:00 06/26/25 20:00 Hydralazine Hcl 50 Mg Tablet PO 100 mg QID DAVID Administration Hydrochlorothiazide 12.5 mg 06/20/25 09:50 06/26/25 09:34 Hydrochlorothiazide 12.5 Mg Capsule PO 12.5 mg DAILY DAVID Administration Dextrose 1,000 mls @ 100 mls/hr 06/19/25 21:30 Dextrose 5% 1,000 Ml IVPB PRN PRN Hypoglycemia Protocol Ceftriaxone Sodium 1 gm/ 50 mls @ 100 mls/hr 06/22/25 09:00 06/26/25 10:05 Sodium Chloride IVPB Infused Q24H DAVID Infusion Levofloxacin/Dextrose 750 mg in 150 mls @ 100 mls/hr 06/22/25 09:00 06/26/25 13:10 Levaquin 750 Mg/D5w 150 Ml IVPB Infused Q48HR DAVID Infusion Insulin Aspart 2 - 5 units 06/20/25 08:00 06/26/25 17:20 Insulin Aspart (*Bkc) 100 Units/Ml SUB-Q Not Given TIDWM DAVID Protocol Insulin Aspart 1 - 2 units 06/20/25 21:00 06/26/25 20:00 Insulin Aspart (*Bkc) 100 Units/Ml SUB-Q 1 units HS DAVID Administration Protocol Isosorbide Mononitrate 60 mg 06/20/25 09:50 06/26/25 09:34 Isosorbide Mononitrate 60 Mg Tab.Er.24h PO 60 mg DAILY DAVID Administration Levalbuterol HCl 0.63 mg 06/21/25 19:41 06/26/25 20:02 Levalbuterol Neb 1.25 Mg/3 Ml INHALATION 0.63 mg Q6HRT PRN Administration shortness of breath Levothyroxine Sodium 100 mcg 06/21/25 06:30 06/27/25 06:27 Levothyroxine Sodium 100 Mcg Tablet PO 100 mcg DAILY@0630 DAVID Administration Losartan Potassium 100 mg 06/20/25 09:00 06/22/25 09:16 Losartan Potassium 100 Mg Tablet PO 100 mg On Hold: 06/22/25 15:20 DAILY DAVID Administration Nifedipine 30 mg 06/24/25 18:10 06/26/25 17:19 Nifedipine 30 Mg Tab.Er.24 PO 30 mg BID DAVID Administration Sotalol HCl 40 mg 06/21/25 09:00 06/26/25 09:34 Sotalol Hcl 40 Mg Tablet PO 40 mg DAILY DAVID Administration Radiology Results: ITS Impressions Pulmonary Perfusion Imaging 06/21/25 11:25 IMPRESSION: No compelling or large segmental size areas of mismatch, and with right base findings on today's chest x-ray, the perfusion mismatch in the right base is of uncertain significance. Per PIOPED criteria, this is an indeterminate INTERMEDIATE probability for pulmonary embolus. Renal Ultrasound 06/21/25 13:56 IMPRESSION: 1. Normal kidneys without hydronephrosis. Chest CT 06/21/25 14:30 IMPRESSION: 1. Bibasilar consolidations likely associated with aspiration versus community- acquired pneumonia. Mucoid appearing changes in the bronchi endotracheal air column support aspiration. Findings should be followed radiographically until clear. 2. Other chronic appearing findings. Arterial/Peripheral Duplex 06/25/25 14:48 IMPRESSION: 1. No Doppler evidence of renal artery stenosis. Chest X-Ray 06/26/25 14:04 Impression: CHF. Superimposed probable pneumonia. The findings are progressed compared to the previous study. Pelvic/Transvag US 06/26/25 14:16 Impression: Findings are concerning for endometrial neoplasm. Labs Labs: Laboratory Results - last 24 hr 06/26/25 06/26/25 06/26/25 07:46 11:08 13:07 WBC RBC Hgb Hct MCV MCH MCHC RDW Plt Count MPV Immature Gran % (Auto) Neut % (Auto) Lymph % (Auto) [place] % (Auto) Eos % (Auto) Baso % (Auto) Lymph # (Auto) [place] # (Auto) Eos # (Auto) Baso # (Auto) Abs Immat Gran (auto) Absolute Neuts (auto) Absolute Nucleated RBC Nucleated RBC % Sodium Potassium Chloride Carbon Dioxide Anion Gap BUN Creatinine Estim Creat Clear Calc Estimated GFR Glucose POC Capillary Glucose 161 H 275 H 247 H Calcium Phosphorus Magnesium Total Bilirubin AST ALT Alkaline Phosphatase Total Protein Albumin 06/26/25 06/26/25 06/27/25 16:31 19:53 03:39 WBC 9.4 RBC 3.16 L Hgb 10.1 L Hct 31.6 L MCV 100.0 MCH 32.0 MCHC 32.0 RDW 14.4 Plt Count 179 MPV 12.5 H Immature Gran % (Auto) 0.5 Neut % (Auto) 66.6 Lymph % (Auto) 21.7 [place] % (Auto) 9.4 H Eos % (Auto) 1.5 Baso % (Auto) 0.3 Lymph # (Auto) 2.05 [place] # (Auto) 0.9 H Eos # (Auto) 0.1 Baso # (Auto) 0.0 Abs Immat Gran (auto) 0.05 H Absolute Neuts (auto) 6.3 Absolute Nucleated RBC 0.000 Nucleated RBC % 0.0 Sodium 132 L Potassium 4.8 Chloride 105 Carbon Dioxide 19 L Anion Gap 8 BUN 75 H Creatinine 2.26 H Estim Creat Clear Calc 21 Estimated GFR 21 L Glucose 152 H POC Capillary Glucose 109 H 242 H Calcium 8.6 Phosphorus 4.3 Magnesium 2.7 H Total Bilirubin 0.6 AST 36 ALT 36 H Alkaline Phosphatase 83 Total Protein 6.1 L Albumin 3.2 L 06/27/25 07:28 WBC RBC Hgb Hct MCV MCH MCHC RDW Plt Count MPV Immature Gran % (Auto) Neut % (Auto) Lymph % (Auto) [place] % (Auto) Eos % (Auto) Baso % (Auto) Lymph # (Auto) [place] # (Auto) Eos # (Auto) Baso # (Auto) Abs Immat Gran (auto) Absolute Neuts (auto) Absolute Nucleated RBC Nucleated RBC % Sodium Potassium Chloride Carbon Dioxide Anion Gap BUN Creatinine Estim Creat Clear Calc Estimated GFR Glucose POC Capillary Glucose 182 H Calcium Phosphorus Magnesium Total Bilirubin AST ALT Alkaline Phosphatase Total Protein Albumin Hospitalist MIPS Advance Care Plan I have confirmed that the patient's Advanced Care Plan is present, code status is documented, or surrogate decision maker is listed in patient medical record.: Yes Medication Reconciliation I have utilized all available resources to obtain, update and review the patients current medications (includes all prescriptions, OTC, herbals, cannabis, and nutritional supplements).: Yes
[2025-06-27] MEDS: FLUTICASONE PROPIONATE 0.05% NA SPR 16 GM BTL (*BKC) 1 SPRAY NASAL ×2 (08:20→20:20)
[2025-06-27] MEDS: ATORVASTATIN 40 MG TABLET 80 MG PO (08:20)
[2025-06-27] MEDS: guaiFENesin 12 HR 600 MG TABCR 1200 MG PO ×2 (08:20→20:21)
[2025-06-27] MEDS: ISOSORBIDE MONONITRATE 60 MG TAB.ER.24H PO (08:21)
[2025-06-27] MEDS: ASPIRIN 81 MG ENTERIC TABLET PO (08:21)
[2025-06-27] MEDS: cefTRIAXone 1 GM in SODIUM CHLORIDE 0.9% IV 50 ML 100 ML IVPB (08:22)
--- NOTE | 2025-06-27 08:55 | PCNWS ---
Weekly nutritional screen. Patient is tolerating current Diabetic diet/ heart healthy diet with adequate intake 50-100% all meals. No weight loss reported. No nutritional recommendations at this time.
--- NOTE | 2025-06-27 10:04 | P.PNNP_ITS ---
Progress Note: A&P Assessment and Plan (1) Acute kidney injury: Code(s): N17.9 - Acute kidney failure, unspecified Status: Acute Assessment and Plan: * baseline creatinine runs in the 1.3-1.6 range as of a couple of months ago. * as noted on admission, creatinine was 2.26mg/dL. After admission it came down a little bit and Since then it has been up and down. Today it is a little bit better. * fluctuating since hospitalization began * possible new baseline or element of CKD progression? (see #2) * It is not clear why her creatinine is not getting better. Repeat chest x-ray shows excess fluid. She does not seem dehydrated. Her peripheral eosinophils are back down and still in the normal range.. Ultrasound is unremarkable. EF is good ( however she does have pulmonary hypertension). She is not on diuretics. Her heart rate is now in the 50s as she is out of AFib. * several issues playing a role: * CHF exacerbation * Afib with RVR * COPD * hypoxia(?) * diuresis * ARB + HCTZ use prior to admission * other(?) * evaluation to date noted: * renal ultrasound w/o obstruction * urine electrolytes nonprerenal * urine eosinophils negative * noted proteinuria * CPK normal * Creatinine is slightly better * Unfortunately, because she has fluid now we have to restart diuretics. * Will start diuretics and watch the fluid level and labs she has much less shortness of breath today so I think we can go slowly. We will start with changing hydrochlorothiazide to chlorthalidone. Consider loop diuretic if she still gets any more shortness of breath. The chlorthalidone will also be better for her blood pressure then a loop diuretic and stronger than hydrochlorothiazide. (2) Stage 3b chronic kidney disease: Code(s): N18.32 - Chronic kidney disease, stage 3b Status: Chronic Assessment and Plan: * baseline creatinine seems to run ~ 1.3 - 1.7mg/dl * however, has been as high as 2.0mg/dl * this causes her to fluctuate between CKD state 3b and stage 4 * secondary to hypertension, diabetes vascular disease (CAD + hyperlipidemia), COPD/DENNIS, and age-related change * follows with Jennifer Chairez NP/Dr. Young for CKD management (3) CHF (congestive heart failure): Qualifiers: Heart failure chronicity: unspecified Heart failure type: unspecified Qualified Code(s): I50.9 - Heart failure, unspecified Code(s): I50.9 - Heart failure, unspecified Status: Acute Assessment and Plan: * suggeste by pulmonary vascular congestion on x-ray and exam * This had improved but now is back again. * no lower extremity edema * reportedly just discharged from [facility] in December 2024 with heart failure (but not sent home on diuretics), * Echo results noted: * left ventricular systolic function is normal, estimated at 65 - 70% * mitral valve has moderately calcified leaflets and a moderately calcified annulus * mild mitral valve regurgitation * mild tricuspid valve regurgitation * severe pulmonary hypertension, estimated pulmonary arterial systolic pressure is 63 mmHg. * Breathing is better. * Starting diuretics fluid off gradually. (4) Atrial fibrillation with rapid ventricular response: Code(s): I48.91 - Unspecified atrial fibrillation Status: Acute Assessment and Plan: * admission EKG showed AFib with RVR rate 155 * acheived rate control with IV Cardiazem * on heparin gtt * on sotalol * Pulse in the 50s now. (5) COPD (chronic obstructive pulmonary disease): Code(s): J44.9 - Chronic obstructive pulmonary disease, unspecified Status: Acute Assessment and Plan: * Pulmonary following with recommendations noted * on inhalers * supplemental oxygen PRN (6) Pulmonary hypertension: Code(s): I27.20 - Pulmonary hypertension, unspecified Status: Acute Assessment and Plan: * as seen on echocardiogram with RVSP of 63 mmHg * Pulmonology and Cardiology following (7) Hypertension: Qualifiers: Hypertension type: essential hypertension Qualified Code(s): I10 - Essential (primary) hypertension Code(s): I10 - Essential (primary) hypertension Status: Acute Assessment and Plan: * quite erratic control . systolis 130 to 170, generally a trend of improvement on new med doses. * off ARB due to #1 * titrated hydralazine and nifedipine to bid recently * Change hydrochlorothiazide to chlorthalidone * In the long run it would be best if she were off the nifedipine (8) Type 2 diabetes mellitus with diabetic chronic kidney disease: Code(s): E11.22 - Type 2 diabetes mellitus with diabetic chronic kidney disease Status: Acute Assessment and Plan: * follow accu-cheks * glycemic control per hospitalist Will continue to follow. Subjective Date/time seen: 06/27/25 10:04 Interval history: Patient is sitting up in a chair. She is less short of breath today. She received a breathing treatment last evening and since then her breathing has been much better. Exam Narrative: General: elderly but WD/WN female in NAD Heart: IRRR, normal S1 and S2; no rub or gallop Lungs: Much clearer with good airway movement. Abdomen: soft, nontender, nondistended, positive bowel sounds Extremities: trace edema Skin: no rash or subcu nodules Objective Data Vital Signs Vital Signs: Vital Signs - 24 hr 06/26/25 12:00 06/26/25 15:36 06/26/25 16:00 Temperature 98.2 F Pulse Rate 58 L 54 L 53 L Respiratory Rate 20 Blood Pressure 161/44 H Pulse Oximetry 93 Oxygen Delivery Oxygen Flow Rate 06/26/25 19:27 06/26/25 20:00 06/26/25 20:00 Temperature 97.9 F Pulse Rate 57 L 68 Respiratory Rate 24 H Blood Pressure 163/60 H Pulse Oximetry 90 90 Oxygen Delivery Nasal Cannula Oxygen Flow Rate 4 06/26/25 20:02 06/26/25 20:02 06/26/25 20:11 Temperature Pulse Rate 55 L 52 L 52 L Respiratory Rate 20 20 20 Blood Pressure Pulse Oximetry 93 Oxygen Delivery CPAP Oxygen Flow Rate 06/27/25 00:00 06/27/25 00:00 06/27/25 01:59 Temperature 97.5 F L Pulse Rate 49 L 50 L 45 L Respiratory Rate 21 H 21 H Blood Pressure 175/45 H Pulse Oximetry 93 92 Oxygen Delivery CPAP Oxygen Flow Rate 06/27/25 04:00 06/27/25 04:37 06/27/25 07:12 Temperature 97.5 F L Pulse Rate 48 L 46 L 55 L Respiratory Rate 21 H 18 Blood Pressure 154/47 H Pulse Oximetry 93 94 Oxygen Delivery High Flow Nasal Cannula Oxygen Flow Rate 3 06/27/25 07:12 06/27/25 07:52 06/27/25 08:20 Temperature 98.3 F Pulse Rate 55 L 56 L 59 L Respiratory Rate 18 20 Blood Pressure 164/45 H Pulse Oximetry 95 Oxygen Delivery Oxygen Flow Rate Intake/Output Intake/Output: Intake & Output 06/24/25 06/25/25 06/26/25 06/27/25 23:59 23:59 23:59 23:59 Intake Total 6216 403 8611 250 Output Total 300 600 Balance 1388 880 700 -350 Meds/Results Medications: Active Medications Generic Name Dose Route Start Last Admin Trade Name Freq PRN Reason Stop Dose Admin Acetaminophen 1,000 mg 06/19/25 22:44 06/22/25 21:13 Acetaminophen 500 Mg Tablet PO 1,000 mg TID PRN Administration Mild Pain (1-3) or Fever Allopurinol 100 mg 06/23/25 09:00 06/27/25 08:22 Allopurinol 100 Mg Tablet PO 100 mg Q48HR DAVID Administration Apixaban 2.5 mg 06/23/25 21:00 06/25/25 09:16 Apixaban 2.5 Mg Tablet PO 2.5 mg On Hold: 06/25/25 17:59 Q12HR DAVID Administration Aspirin 81 mg 06/20/25 09:00 06/27/25 08:21 Aspirin 81 Mg Enteric Tablet PO 81 mg DAILY DAVID Administration Atorvastatin Calcium 80 mg 06/20/25 09:55 06/27/25 08:20 Atorvastatin 40 Mg Tablet PO 80 mg DAILY DAVID Administration Dextrose 12.5 gm 06/19/25 21:30 Dextrose 50% 25 Gm/50 Ml Syringe IV PUSH PRN PRN Hypoglycemia Protocol Fluticasone Propionate 1 spray 06/20/25 09:00 06/27/25 08:20 Fluticasone Propionate 0.05% Na Spr 16 Gm Btl (*Bkc) NASAL 1 spray Q12H DAVID Administration Fluticasone/Umeclidinium/Vilanterol 1 puff 06/20/25 09:00 06/27/25 07:12 Fluticasone/Umeclidin/Vilanter 100-62.5-25 Mcg Ellipta INHALATION 1 puff Q24H DAVID Administration Glucose 15 gm 06/19/25 21:30 Glucose Oral Gel 15 Gm Of Glucse In 37.5 Gm Tube PO PRN PRN Hypoglycemia Protocol Guaifenesin 1,200 mg 06/22/25 09:20 06/27/25 08:20 Guaifenesin 12 Hr 600 Mg Tabcr PO 1,200 mg Q12HR DAVID Administration Hydralazine HCl 100 mg 06/22/25 17:00 06/27/25 08:21 Hydralazine Hcl 50 Mg Tablet PO 100 mg QID DAVID Administration Hydrochlorothiazide 12.5 mg 06/20/25 09:50 06/27/25 08:22 Hydrochlorothiazide 12.5 Mg Capsule PO 12.5 mg DAILY DAVID Administration Dextrose 1,000 mls @ 100 mls/hr 06/19/25 21:30 Dextrose 5% 1,000 Ml IVPB PRN PRN Hypoglycemia Protocol Ceftriaxone Sodium 1 gm/ 50 mls @ 100 mls/hr 06/22/25 09:00 06/27/25 09:15 Sodium Chloride IVPB Infused Q24H DAVID Infusion Levofloxacin/Dextrose 750 mg in 150 mls @ 100 mls/hr 06/22/25 09:00 06/26/25 13:10 Levaquin 750 Mg/D5w 150 Ml IVPB Infused Q48HR DAVID Infusion Insulin Aspart 2 - 5 units 06/20/25 08:00 06/27/25 08:19 Insulin Aspart (*Bkc) 100 Units/Ml SUB-Q Not Given TIDWM DAVID Protocol Insulin Aspart 1 - 2 units 06/20/25 21:00 06/26/25 20:00 Insulin Aspart (*Bkc) 100 Units/Ml SUB-Q 1 units HS DAVID Administration Protocol Isosorbide Mononitrate 60 mg 06/20/25 09:50 06/27/25 08:21 Isosorbide Mononitrate 60 Mg Tab.Er.24h PO 60 mg DAILY DAVID Administration Levalbuterol HCl 0.63 mg 06/21/25 19:41 06/26/25 20:02 Levalbuterol Neb 1.25 Mg/3 Ml INHALATION 0.63 mg Q6HRT PRN Administration shortness of breath Levothyroxine Sodium 100 mcg 06/21/25 06:30 06/27/25 06:27 Levothyroxine Sodium 100 Mcg Tablet PO 100 mcg DAILY@0630 DAVID Administration Losartan Potassium 100 mg 06/20/25 09:00 06/22/25 09:16 Losartan Potassium 100 Mg Tablet PO 100 mg On Hold: 06/22/25 15:20 DAILY DAVID Administration Nifedipine 30 mg 06/24/25 18:10 06/27/25 08:21 Nifedipine 30 Mg Tab.Er.24 PO 30 mg BID DAVID Administration Sotalol HCl 40 mg 06/21/25 09:00 06/27/25 08:20 Sotalol Hcl 40 Mg Tablet PO 40 mg DAILY DAVID Administration Radiology Results: ITS Impressions Pulmonary Perfusion Imaging 06/21/25 11:25 IMPRESSION: No compelling or large segmental size areas of mismatch, and with right base findings on today's chest x-ray, the perfusion mismatch in the right base is of uncertain significance. Per PIOPED criteria, this is an indeterminate INTERMEDIATE probability for pulmonary embolus. Renal Ultrasound 06/21/25 13:56 IMPRESSION: 1. Normal kidneys without hydronephrosis. Chest CT 06/21/25 14:30 IMPRESSION: 1. Bibasilar consolidations likely associated with aspiration versus community- acquired pneumonia. Mucoid appearing changes in the bronchi endotracheal air column support aspiration. Findings should be followed radiographically until clear. 2. Other chronic appearing findings. Arterial/Peripheral Duplex 06/25/25 14:48 IMPRESSION: 1. No Doppler evidence of renal artery stenosis. Chest X-Ray 06/26/25 14:04 Impression: CHF. Superimposed probable pneumonia. The findings are progressed compared to the previous study. Pelvic/Transvag US 06/26/25 14:16 Impression: Findings are concerning for endometrial neoplasm. Labs Labs: Laboratory Results - last 24 hr 06/26/25 06/26/25 06/26/25 11:08 13:07 16:31 WBC RBC Hgb Hct MCV MCH MCHC RDW Plt Count MPV Immature Gran % (Auto) Neut % (Auto) Lymph % (Auto) Barron % (Auto) Eos % (Auto) Baso % (Auto) Lymph # (Auto) Barron # (Auto) Eos # (Auto) Baso # (Auto) Abs Immat Gran (auto) Absolute Neuts (auto) Absolute Nucleated RBC Nucleated RBC % Sodium Potassium Chloride Carbon Dioxide Anion Gap BUN Creatinine Estim Creat Clear Calc Estimated GFR Glucose POC Capillary Glucose 275 H 247 H 109 H Calcium Phosphorus Magnesium Total Bilirubin AST ALT Alkaline Phosphatase Total Protein Albumin 06/26/25 06/27/25 06/27/25 19:53 03:39 07:28 WBC 9.4 RBC 3.16 L Hgb 10.1 L Hct 31.6 L MCV 100.0 MCH 32.0 MCHC 32.0 RDW 14.4 Plt Count 179 MPV 12.5 H Immature Gran % (Auto) 0.5 Neut % (Auto) 66.6 Lymph % (Auto) 21.7 Barron % (Auto) 9.4 H Eos % (Auto) 1.5 Baso % (Auto) 0.3 Lymph # (Auto) 2.05 Barron # (Auto) 0.9 H Eos # (Auto) 0.1 Baso # (Auto) 0.0 Abs Immat Gran (auto) 0.05 H Absolute Neuts (auto) 6.3 Absolute Nucleated RBC 0.000 Nucleated RBC % 0.0 Sodium 132 L Potassium 4.8 Chloride 105 Carbon Dioxide 19 L Anion Gap 8 BUN 75 H Creatinine 2.26 H Estim Creat Clear Calc 21 Estimated GFR 21 L Glucose 152 H POC Capillary Glucose 242 H 182 H Calcium 8.6 Phosphorus 4.3 Magnesium 2.7 H Total Bilirubin 0.6 AST 36 ALT 36 H Alkaline Phosphatase 83 Total Protein 6.1 L Albumin 3.2 L
[2025-06-27] MEDS: CHLORTHALIDONE 25 MG TABLET PO (11:59)
[2025-06-28] VITALS (12 sets, daily range): BP systolic 152–169; BP diastolic 44–52; PULSE 45–77; RESP 18–28; TEMP 36.6–36.8; O2SAT 91–96
[2025-06-28 04:42] LABS: Hematocrit 31.4 % (37.0-47.0); Hemoglobin 10.2 g/dL (12.0-15.0); Immature Granulocyte Percent A 0.7 % (0-0.5); Lymphocytes Absolute Auto 1.93 K/mm3 (0.9-3.2); Mean Corpuscular HGB Conc 32.5 g/dl (32-36); Mean Corpuscular Hemoglobin 33.0 pg (26-34); Mean Corpuscular Volume 101.6 fl (80-100); Nucleated Red Blood Cells Absolute Auto 0.000 K/mm3 (0.0-0.012); Nucleated Red Blood Cells Perc 0.0 % (0.0-0.2); Platelet Count Result 182 k/mm3 (150-375); Red Blood Count 3.09 M/mm3 (4.2-5.4); White Blood Count 8.0 K/mm3 (4.5-10.0)
[2025-06-28 05:04] LABS: Alanine Aminotransferase 34 U/L (6-35); Albumin Level 3.4 g/dL (3.5-5.1); Alkaline Phosphatase 93 U/L (38-126); Anion Gap 8 mmol/L (4-12); Aspartate Amino Transferase 32 U/L (14-36); Bilirubin,Total 0.7 mg/dL (0.2-1.3); Blood Urea Nitrogen 76 mg/dL (7-17); Calcium 8.8 mg/dL (8.4-10.2); Carbon Dioxide 20 mmol/L (22-30); Chloride 105 mmol/L (98-107); Estimated CRCL calculation 21 ml/min; Estimated Glomerular Filt Rate 22; Glucose 140 mg/dL (65-110); Magnesium 2.8 mg/dL (1.6-2.3); Potassium 4.5 mmol/L (3.4-5.0); Sodium 133 mmol/L (137-145); Total Protein 6.4 g/dL (6.3-8.2)
[2025-06-28] MEDS: LEVOTHYROXINE SODIUM 100 MCG TABLET PO (06:13)
[2025-06-28] MEDS: FLUTICASONE/UMECLIDIN/VILANTER 100-62.5-25 MCG ELLIPTA 1 PUFF INHALATION (07:36)
[2025-06-28] MEDS: guaiFENesin 12 HR 600 MG TABCR 1200 MG PO ×2 (09:20→20:36)
[2025-06-28] MEDS: ISOSORBIDE MONONITRATE 60 MG TAB.ER.24H PO (09:20)
[2025-06-28] MEDS: ATORVASTATIN 40 MG TABLET 80 MG PO (09:21)
[2025-06-28] MEDS: CHLORTHALIDONE 25 MG TABLET PO (09:21)
[2025-06-28] MEDS: cefTRIAXone 1 GM in SODIUM CHLORIDE 0.9% IV 50 ML 100 ML IVPB (09:21)
[2025-06-28] MEDS: FLUTICASONE PROPIONATE 0.05% NA SPR 16 GM BTL (*BKC) 1 SPRAY NASAL ×2 (09:21→20:36)
[2025-06-28] MEDS: levoFLOXacin 750 MG/D5W 150 ML 750 MG/150 ML BAG 100 MG IVPB (09:21)
[2025-06-28] MEDS: ASPIRIN 81 MG ENTERIC TABLET PO (09:28)
--- NOTE | 2025-06-28 10:54 | P.PNNP_ITS ---
Progress Note: A&P Assessment and Plan (1) Acute kidney injury: Code(s): N17.9 - Acute kidney failure, unspecified Status: Acute Assessment and Plan: * baseline creatinine runs in the 1.3-1.6 range as of a couple of months ago. * as noted on admission, creatinine was 2.26mg/dL. After admission it came down a little bit and Since then it has been up and down. Today it is a little bit better. * fluctuating since hospitalization began * I agree that she possibly has new baseline or element of CKD progression? (see #2) * several issues playing a role: * CHF exacerbation * Afib with RVR * COPD * hypoxia(?) * diuresis * ARB + HCTZ use prior to admission * other(?) * evaluation to date noted: * renal ultrasound w/o obstruction * urine electrolytes nonprerenal * urine eosinophils negative * noted proteinuria * CPK normal * Creatinine is slightly better * The patient is short of breath she does get better with inhalers. The patient has pulmonary hypertension which contributes to her shortness of breath, but she probably has some fluid component to her shortness of breath as well. I will give her a couple of doses of Bumex today to try to get rid of some of this fluid. (2) Stage 3b chronic kidney disease: Code(s): N18.32 - Chronic kidney disease, stage 3b Status: Chronic Assessment and Plan: * baseline creatinine seems to run ~ 1.3 - 1.7mg/dl * however, has been as high as 2.0mg/dl * this causes her to fluctuate between CKD state 3b and stage 4 * secondary to hypertension, diabetes vascular disease (CAD + hyperlipidemia), COPD/DENNIS, and age-related change * follows with Jennifer Chairez NP/Dr. Young for CKD management (3) CHF (congestive heart failure): Qualifiers: Heart failure chronicity: unspecified Heart failure type: unspecified Qualified Code(s): I50.9 - Heart failure, unspecified Code(s): I50.9 - Heart failure, unspecified Status: Acute Assessment and Plan: * suggeste by pulmonary vascular congestion on x-ray and exam * This had improved but now is back again. * no lower extremity edema * reportedly just discharged from [facility] in December 2024 with heart failure (but not sent home on diuretics), * Echo results noted: * left ventricular systolic function is normal, estimated at 65 - 70% * mitral valve has moderately calcified leaflets and a moderately calcified annulus * mild mitral valve regurgitation * mild tricuspid valve regurgitation * severe pulmonary hypertension, estimated pulmonary arterial systolic pressure is 63 mmHg. * Breathing is better within his but the shortness of breath recurs between times. * Give a couple of doses of Bumex today. (4) Atrial fibrillation with rapid ventricular response: Code(s): I48.91 - Unspecified atrial fibrillation Status: Acute Assessment and Plan: * admission EKG showed AFib with RVR rate 155 * acheived rate control with IV Cardiazem * on heparin gtt * on sotalol * Pulse in the 50s still (5) COPD (chronic obstructive pulmonary disease): Code(s): J44.9 - Chronic obstructive pulmonary disease, unspecified Status: Acute Assessment and Plan: * Pulmonary following with recommendations noted * on inhalers * supplemental oxygen PRN (6) Pulmonary hypertension: Code(s): I27.20 - Pulmonary hypertension, unspecified Status: Acute Assessment and Plan: * as seen on echocardiogram with RVSP of 63 mmHg * Pulmonology and Cardiology following (7) Hypertension: Qualifiers: Hypertension type: essential hypertension Qualified Code(s): I10 - Essential (primary) hypertension Code(s): I10 - Essential (primary) hypertension Status: Acute Assessment and Plan: * quite erratic control . systolis 130 to 170, generally a trend of improvement on new med doses. * off ARB due to #1 * titrated hydralazine and nifedipine to bid recently * Changed hydrochlorothiazide to chlorthalidone yesterday * In the long run it would be best if she were off the nifedipine but we need to get the blood pressure down a little bit. (8) Type 2 diabetes mellitus with diabetic chronic kidney disease: Code(s): E11.22 - Type 2 diabetes mellitus with diabetic chronic kidney disease Status: Acute Assessment and Plan: * follow accu-cheks * glycemic control per hospitalist Will continue to follow. Subjective Date/time seen: 06/28/25 10:54 Interval history: Vashti is a little short of breath today. She was better yesterday but then developed some shortness of breath toward the evening and she got another breathing treatment and was better. Exam Narrative: General: elderly but WD/WN female in NAD Heart: IRRR, normal S1 and S2; no rub or gallop Lungs: Bilateral increased expiratory phase and scattered rhonchi. Abdomen: soft, nontender, nondistended, positive bowel sounds Extremities: trace edema Skin: no rash or subcu nodules Objective Data Vital Signs Vital Signs: Vital Signs - 24 hr 06/27/25 11:39 06/27/25 12:00 06/27/25 16:00 Temperature 97.5 F L 98.1 F Pulse Rate 58 L 56 L 57 L Respiratory Rate 22 H 20 Blood Pressure 176/50 H 162/47 H Pulse Oximetry 96 91 Oxygen Delivery Oxygen Flow Rate Fraction of Inspired Oxygen 06/27/25 16:00 06/27/25 18:45 06/27/25 19:43 Temperature Pulse Rate 50 L 57 L Respiratory Rate 23 H Blood Pressure Pulse Oximetry 92 Oxygen Delivery CPAP Oxygen Flow Rate 6 Fraction of Inspired Oxygen 30 06/27/25 19:46 06/27/25 19:54 06/27/25 20:00 Temperature Pulse Rate 53 L 51 L Respiratory Rate 23 H 21 H Blood Pressure Pulse Oximetry 95 93 Oxygen Delivery CPAP CPAP Oxygen Flow Rate Fraction of Inspired Oxygen 30 30 06/27/25 20:00 06/27/25 21:07 06/27/25 22:07 Temperature Pulse Rate 51 L 53 L 48 L Respiratory Rate 21 H 18 Blood Pressure Pulse Oximetry 93 95 Oxygen Delivery CPAP CPAP Oxygen Flow Rate Fraction of Inspired Oxygen 06/27/25 23:56 06/27/25 23:57 06/28/25 00:00 Temperature 98.8 F Pulse Rate 51 L 50 L Respiratory Rate 21 H Blood Pressure 165/39 H 161/29 H Pulse Oximetry 96 Oxygen Delivery Oxygen Flow Rate Fraction of Inspired Oxygen 06/28/25 03:26 06/28/25 04:00 06/28/25 07:37 Temperature Pulse Rate 45 L 60 77 Respiratory Rate 21 H 18 Blood Pressure Pulse Oximetry 96 92 Oxygen Delivery CPAP Nasal Cannula Oxygen Flow Rate 3 Fraction of Inspired Oxygen 06/28/25 07:43 06/28/25 08:00 06/28/25 08:00 Temperature 97.9 F Pulse Rate 71 57 L Respiratory Rate 18 20 Blood Pressure 169/52 H Pulse Oximetry 92 92 Oxygen Delivery Nasal Cannula Oxygen Flow Rate 3 Fraction of Inspired Oxygen 06/28/25 09:20 Temperature Pulse Rate 53 L Respiratory Rate Blood Pressure Pulse Oximetry Oxygen Delivery Oxygen Flow Rate Fraction of Inspired Oxygen Intake/Output Intake/Output: Intake & Output 06/25/25 06/26/25 06/27/25 06/28/25 23:59 23:59 23:59 23:59 Intake Total 880 1000 1390 240 Output Total 300 2350 0 Balance 880 700 -960 240 Meds/Results Medications: Active Medications Generic Name Dose Route Start Last Admin Trade Name Freq PRN Reason Stop Dose Admin Acetaminophen 1,000 mg 06/19/25 22:44 06/22/25 21:13 Acetaminophen 500 Mg Tablet PO 1,000 mg TID PRN Administration Mild Pain (1-3) or Fever Allopurinol 100 mg 06/23/25 09:00 06/27/25 08:22 Allopurinol 100 Mg Tablet PO 100 mg Q48HR DAVID Administration Apixaban 2.5 mg 06/23/25 21:00 06/25/25 09:16 Apixaban 2.5 Mg Tablet PO 2.5 mg On Hold: 06/25/25 17:59 Q12HR DAVID Administration Aspirin 81 mg 06/20/25 09:00 06/28/25 09:28 Aspirin 81 Mg Enteric Tablet PO 81 mg DAILY DAVID Administration Atorvastatin Calcium 80 mg 06/20/25 09:55 06/28/25 09:21 Atorvastatin 40 Mg Tablet PO 80 mg DAILY DAVID Administration Chlorthalidone 25 mg 06/27/25 10:10 06/28/25 09:21 Chlorthalidone 25 Mg Tablet PO 25 mg DAILY DAVID Administration Dextrose 12.5 gm 06/19/25 21:30 Dextrose 50% 25 Gm/50 Ml Syringe IV PUSH PRN PRN Hypoglycemia Protocol Fluticasone Propionate 1 spray 06/20/25 09:00 06/28/25 09:21 Fluticasone Propionate 0.05% Na Spr 16 Gm Btl (*Bkc) NASAL 1 spray Q12H DAVID Administration Fluticasone/Umeclidinium/Vilanterol 1 puff 06/20/25 09:00 06/28/25 07:36 Fluticasone/Umeclidin/Vilanter 100-62.5-25 Mcg Ellipta INHALATION 1 puff Q24H DAVID Administration Glucose 15 gm 06/19/25 21:30 Glucose Oral Gel 15 Gm Of Glucse In 37.5 Gm Tube PO PRN PRN Hypoglycemia Protocol Guaifenesin 1,200 mg 06/22/25 09:20 06/28/25 09:20 Guaifenesin 12 Hr 600 Mg Tabcr PO 1,200 mg Q12HR DAVID Administration Hydralazine HCl 100 mg 06/22/25 17:00 06/28/25 09:20 Hydralazine Hcl 50 Mg Tablet PO 100 mg QID DAVID Administration Dextrose 1,000 mls @ 100 mls/hr 06/19/25 21:30 Dextrose 5% 1,000 Ml IVPB PRN PRN Hypoglycemia Protocol Ceftriaxone Sodium 1 gm/ 50 mls @ 100 mls/hr 06/22/25 09:00 06/28/25 09:21 Sodium Chloride IVPB 100 mls/hr Q24H DAVID Administration Levofloxacin/Dextrose 750 mg in 150 mls @ 100 mls/hr 06/22/25 09:00 06/28/25 09:21 Levaquin 750 Mg/D5w 150 Ml IVPB 100 mls/hr Q48HR DAVID Administration Insulin Aspart 2 - 5 units 06/20/25 08:00 06/28/25 08:24 Insulin Aspart (*Bkc) 100 Units/Ml SUB-Q Not Given TIDWM DAVID Protocol Insulin Aspart 1 - 2 units 06/20/25 21:00 06/27/25 20:21 Insulin Aspart (*Bkc) 100 Units/Ml SUB-Q Not Given HS DAVID Protocol Isosorbide Mononitrate 60 mg 06/20/25 09:50 06/28/25 09:20 Isosorbide Mononitrate 60 Mg Tab.Er.24h PO 60 mg DAILY DAVID Administration Levalbuterol HCl 0.63 mg 06/21/25 19:41 06/27/25 19:43 Levalbuterol Neb 1.25 Mg/3 Ml INHALATION 0.63 mg Q6HRT PRN Administration shortness of breath Levothyroxine Sodium 100 mcg 06/21/25 06:30 06/28/25 06:13 Levothyroxine Sodium 100 Mcg Tablet PO 100 mcg DAILY@0630 DAVID Administration Losartan Potassium 100 mg 06/20/25 09:00 06/22/25 09:16 Losartan Potassium 100 Mg Tablet PO 100 mg On Hold: 06/22/25 15:20 DAILY DAVID Administration Nifedipine 30 mg 06/24/25 18:10 06/28/25 09:20 Nifedipine 30 Mg Tab.Er.24 PO 30 mg BID DAVID Administration Sotalol HCl 40 mg 06/21/25 09:00 06/28/25 09:20 Sotalol Hcl 40 Mg Tablet PO 40 mg DAILY DAVID Administration Radiology Results: ITS Impressions Pulmonary Perfusion Imaging 06/21/25 11:25 IMPRESSION: No compelling or large segmental size areas of mismatch, and with right base findings on today's chest x-ray, the perfusion mismatch in the right base is of uncertain significance. Per PIOPED criteria, this is an indeterminate INTERMEDIATE probability for pulmonary embolus. Renal Ultrasound 06/21/25 13:56 IMPRESSION: 1. Normal kidneys without hydronephrosis. Chest CT 06/21/25 14:30 IMPRESSION: 1. Bibasilar consolidations likely associated with aspiration versus community- acquired pneumonia. Mucoid appearing changes in the bronchi endotracheal air column support aspiration. Findings should be followed radiographically until clear. 2. Other chronic appearing findings. Arterial/Peripheral Duplex 06/25/25 14:48 IMPRESSION: 1. No Doppler evidence of renal artery stenosis. Chest X-Ray 06/26/25 14:04 Impression: CHF. Superimposed probable pneumonia. The findings are progressed compared to the previous study. Pelvic/Transvag US 06/26/25 14:16 Impression: Findings are concerning for endometrial neoplasm. Labs Labs: Laboratory Results - last 24 hr 06/22/25 06/27/25 06/27/25 01:18 11:28 16:37 WBC RBC Hgb Hct MCV MCH MCHC RDW Plt Count MPV Immature Gran % (Auto) Neut % (Auto) Lymph % (Auto) Rabun % (Auto) Eos % (Auto) Baso % (Auto) Lymph # (Auto) Rabun # (Auto) Eos # (Auto) Baso # (Auto) Abs Immat Gran (auto) Absolute Neuts (auto) Absolute Nucleated RBC Nucleated RBC % Sodium Potassium Chloride Carbon Dioxide Anion Gap BUN Creatinine Estim Creat Clear Calc Estimated GFR Glucose POC Capillary Glucose 193 H 172 H Calcium Phosphorus Magnesium Total Bilirubin AST ALT Alkaline Phosphatase Total Protein Albumin [id number] 188 H Alpha-1-AT Phenotype Mm 06/27/25 06/28/25 06/28/25 20:18 03:43 07:53 WBC 8.0 RBC 3.09 L Hgb 10.2 L Hct 31.4 L MCV 101.6 H MCH 33.0 MCHC 32.5 RDW 14.6 H Plt Count 182 MPV 12.3 H Immature Gran % (Auto) 0.7 H Neut % (Auto) 64.7 Lymph % (Auto) 24.0 Rabun % (Auto) 8.7 H Eos % (Auto) 1.5 Baso % (Auto) 0.4 Lymph # (Auto) 1.93 Rabun # (Auto) 0.7 H Eos # (Auto) 0.1 Baso # (Auto) 0.0 Abs Immat Gran (auto) 0.06 H Absolute Neuts (auto) 5.2 Absolute Nucleated RBC 0.000 Nucleated RBC % 0.0 Sodium 133 L Potassium 4.5 Chloride 105 Carbon Dioxide 20 L Anion Gap 8 BUN 76 H Creatinine 2.21 H Estim Creat Clear Calc 21 Estimated GFR 22 L Glucose 140 H POC Capillary Glucose 196 H 163 H Calcium 8.8 Phosphorus 4.2 Magnesium 2.8 H Total Bilirubin 0.7 AST 32 ALT 34 Alkaline Phosphatase 93 Total Protein 6.4 Albumin 3.4 L [id number] Alpha-1-AT Phenotype
[2025-06-28] MEDS: BUMETANIDE INJ 1 MG/4 ML VIAL IV PUSH ×2 (12:01→17:20)
[2025-06-28] MEDS: INSULIN ASPART (*BKC) 100 UNITS/ML SUB-Q (12:02)
--- NOTE | 2025-06-28 14:09 | PCRCNOTE ---
Addendum entered by Sarah Red, MECHANICAL SPREADER OPERATOR 06/29/25 09:44: NEW CPAP ORDER FAXED TO [facility] ON 06/29/25 AT 0952. Original Note: Spoke with Wesley albarran from [facility] regarding the patient's home cpap machine. She states the patient is eligible for a new machine with her insurance due to her old machine being from 2019. New order from a provider will be needed prior to discharge.
--- NOTE | 2025-06-28 15:39 | P.PNIM_ITS ---
Progress Note: A&P Assessment and Plan (1) CHF (congestive heart failure): Qualifiers: Heart failure chronicity: unspecified Heart failure type: unspecified Qualified Code(s): I50.9 - Heart failure, unspecified Code(s): I50.9 - Heart failure, unspecified Status: Acute Assessment and Plan: Pulmonary vascular congestion on x-ray/auscultation of lungs. No lower extremity edema. Reports she was discharged from [facility] in December 2024 with heart failure but not sent home on diuretics. Patient did receive 1 L normal saline bolus in the ER, -admitted with AFib with RVR is controlled we will monitor. Continue heparin gtt. - Daily weights, strict intake/output. -Pt diagnosed with CHF December 2024 with no new meds. -06/21: V/Q scan showed intermediate probability for PE -06/21: overnight patient had increased oxygen requirements, currently on 8 L nasal cannula -06/21: Chest x-ray showed pulmonary vascular congestion, will give Lasix - patient may have HFpEF since she has diastolic dysfunction as seen on echocardiogram is under which could be related to her systemic hypertension and pulmonary hypertension 06/23: Adjusted oral antihypertensive medication. Holding losartan due to DEBBIE on CKD. Increase hydralazine from 75 mg 100 mg qid.. Added nifedipine 30 mg p.o. q.d.. Will continue hydrochlorothiazide 12.5 mg p.o. q.d. and isosorbide mononitrate 60 mg p.o. q.d. and sotalol 40 mg p.o. q.d. Nifedipine increased to 30 mg b.i.d. losartan remains on hold Recheck chest x-ray 06/20/25: Echocardiogram Summary 1. Definity contrast administered improved wall motion interpretation. 2. Left ventricular chamber dimension is normal. 3. Left ventricular systolic function is normal, estimated at 65-70. 4. There is moderate concentric increased left ventricular wall thickness. 5. E/e' 48 is significantly elevated. 6. Left atrial chamber dimension is severely enlarged. 7. The mitral valve has moderately calcified leaflets and a moderately calcified annulus. 8. There is mild mitral valve regurgitation. 9. There is mild tricuspid valve regurgitation. 10. Severe pulmonary hypertension, estimated pulmonary arterial systolic pressure is 63 mmHg. 11. Dilated inferior vena cava with >50% collapse upon inspiration consistent with elevated right atrial pressure, 10 mmHg. (2) Atrial fibrillation with rapid ventricular response: Code(s): I48.91 - Unspecified atrial fibrillation Status: Acute Assessment and Plan: ED EKG showed AFib with RVR rate 155, patient received Cardizem 15 mg IV x1, with subsequent rate control an EKG demonstrating AFib. Shortness of breath resolved. Currently AFib with controlled rate. Stop the heparin and started Eliquis -appreciate cardiology evaluation recommendation -06/20: started on sotalol b.i.d. which has been decreased to once daily due to bradycardia (on 06/21) -TSH within normal limits, -magnesium and potassium levels within normal limits -continue IMU status -started patient on Eliquis -echocardiogram as above Eliquis on hold due to vaginal bleed (3) DEBBIE (acute kidney injury): Code(s): N17.9 - Acute kidney failure, unspecified Status: Acute Assessment and Plan: Now that her AFib with RVR is controlled we will monitor. Daily weights, strict intake/output. -1L given in ED, pt with CHF hx (new December 2024) -DEBBIE could be related to elevated blood pressure, CHF, atrial fibrillation 06/20: Creatinine baseline seems to be around 1.3-1.6, -creatinine gradually improving -continue blood pressure medications -nephrology on board Losartan on hold Creatinine 2.21 today (4) Chronic kidney disease, stage 3b: Code(s): N18.32 - Chronic kidney disease, stage 3b Status: Acute Assessment and Plan: Holding losartan Increasing hydralazine from 75 mg to 100 q.i.d. Holding losartan due to DEBBIE on CKD. Increase hydralazine from 75 mg 100 mg qid.. Added nifedipine 30 mg p.o. q.d.. Will continue hydrochlorothiazide 12.5 mg p.o. q.d. and isosorbide mononitrate 60 mg p.o. q.d. and sotalol 40 mg p.o. q.d. Nifedipine increased to 30 mg b.i.d. (5) COPD (chronic obstructive pulmonary disease): Code(s): J44.9 - Chronic obstructive pulmonary disease, unspecified Status: Acute Assessment and Plan: Mild COPD exacerbation, her symptoms could have been related to AFib and pulmonary vascular congestion. received Solu-Medrol with EMS. Restart [employer] controller medications. 06/20: Pt with clear lungs today -Steroids given in ED, if wheezing continues, may give additional steroids. -06/21: Increasing oxygen requirements. - Appreciate pulmonology evaluation -patient with HFpEF, possible COPD, possible PE as V/Q scan on 06/21 showed intermediate probability -continue anticoagulation -continue Trelegy per pulmonology (6) CAD (coronary artery disease): Qualifiers: Coronary Disease-Associated Artery/Lesion type: unspecified vessel or lesion type [place] vs. transplanted heart: unspecified whether [place] or transplanted heart Associated angina: unspecified whether angina present Qualified Code(s): I25.10 - Atherosclerotic heart disease of [place] coronary artery without angina pectoris Code(s): I25.10 - Atherosclerotic heart disease of [place] coronary artery without angina pectoris Status: Acute Assessment and Plan: 06/20: S/p stents. Resume [employer] aspirin and atorvastatin. (7) Type 2 diabetes mellitus with diabetic chronic kidney disease: Code(s): E11.22 - Type 2 diabetes mellitus with diabetic chronic kidney disease Status: Acute Assessment and Plan: Accu-Cheks ACHS with low-dose insulin sliding scale and hypoglycemia protocol. (8) Hypertension: Qualifiers: Hypertension type: essential hypertension Qualified Code(s): I10 - Essential (primary) hypertension Code(s): I10 - Essential (primary) hypertension Status: Acute Assessment and Plan: Acute on chronic. [employer] antihypertensives once med rec entered. Patient does state that her blood pressures are normally in the 160s to 180s range -increase hydralazine 75 mg Q i.d. to 100 mg q.i.d. -Continue to monitor -continue isosorbide 60 mg p.o. q.d., nifedipine 30 mg p.o. q.d., sotalol 40 mg p.o. q.d. nifedipine increased to 30 mg b.i.d. Renal ultrasound negative for renal artery stenosis Losartan on hold due to DEBBIE (9) Pulmonary hypertension: Code(s): I27.20 - Pulmonary hypertension, unspecified Status: Acute Assessment and Plan: Severe pulmonary hypertension as seen on echocardiogram with RVSP of 63 mmHg -pulmonology and cardiology following the patient (10) Vaginal bleeding: Code(s): N93.9 - Abnormal uterine and vaginal bleeding, unspecified Status: Acute Assessment and Plan: Reviewed ultrasound which shows possible neoplasm Biopsy as per gynecology recommendations Continue hold Eliquis Gynecology following Monitor H&H Plan Vaginal bleed: Pelvic ultrasound pending. Gynecology consulted DVT prophylaxis: Apixaban which is currently on hold Stress ulcer prophylaxis: Not indicated Nutrition: Diabetic and heart healthy diet Code Status: DNR Subjective Date/time seen: 06/28/25 15:39 Interval history: Comfortable at bedside on 3 liters oxygen, but uses 1 liters at baseline per her account Review of Systems Review of Systems: All systems reviewed & are unremarkable except as noted in HPI and below Exam Narrative: General: Pleasant female, not in acute distress HEENT:? Pupils equal reactive, sclera is clear, moist oral mucosa Neck:? Supple Respiratory:? Coarse breath sounds bilaterally, decreased at bases, no wheezing Cardiac:? Is irregularly irregular, rate controlled/bradycardia sinus on telemetry Abdomen:? Soft, nontender, nondistended, protuberant, normoactive bowel sounds Extremities:? Extremities are warm, no cyanosis, no edema Neuro:? Patient is awake, alert, oriented, nonfocal, moving all extremities Skin:? No lesions noted Psych:? Normal mentation and affect Const: General: comfortable and no acute distress Other: A&O x4, obese HENMT: Mouth: Yes moist mucous membranes Eyes: General: appearance normal, both eyes and all related structures Sclera: sclerae normal Pupils: Equal, round and reactive pupils present Neck: Neck: supple Carotids: no bruits Resp: Effort & Inspection: normal respiratory effort Other: Diminished lung sounds, no wheezes present. Tachypneic initially, resolved Cardio: Rate: regular rate Rhythm: regular rhythm and abnormal rhythm Other: Tele: 61bpm GI: Inspection: non-distended Auscultation: normal bowel sounds : General: Yes bladder normal to palpation Bimanual exam- vagina & uterus: bladder normal to palpation Skin: General skin exam: normal color and no rashes or lesions noted Neuro: Cranial nerves: Yes Equal, round and reactive pupils present Motor exam (neuro): 5/5 motor strength present throughout and Normal motor muscle tone present throughout Sensory Exam: normal sensation Extrem: General: no edema Psych: Mental Status: mental status grossly normal Affect: normal affect Objective Data Vital Signs Vital Signs: Vital Signs - 24 hr 06/27/25 16:00 06/27/25 16:00 06/27/25 18:45 Temperature 98.1 F Pulse Rate 57 L 50 L Respiratory Rate 20 Blood Pressure 162/47 H Pulse Oximetry 91 92 Oxygen Delivery CPAP Oxygen Flow Rate 6 Fraction of Inspired Oxygen 06/27/25 19:43 06/27/25 19:46 06/27/25 19:54 Temperature Pulse Rate 57 L 53 L Respiratory Rate 23 H 23 H Blood Pressure Pulse Oximetry 95 Oxygen Delivery CPAP Oxygen Flow Rate Fraction of Inspired Oxygen 30 06/27/25 20:00 06/27/25 20:00 06/27/25 21:07 Temperature Pulse Rate 51 L 51 L 53 L Respiratory Rate 21 H 21 H Blood Pressure Pulse Oximetry 93 93 Oxygen Delivery CPAP CPAP Oxygen Flow Rate Fraction of Inspired Oxygen 30 06/27/25 22:07 06/27/25 23:56 06/27/25 23:57 Temperature 98.8 F Pulse Rate 48 L 51 L Respiratory Rate 18 21 H Blood Pressure 165/39 H 161/29 H Pulse Oximetry 95 96 Oxygen Delivery CPAP Oxygen Flow Rate Fraction of Inspired Oxygen 06/28/25 00:00 06/28/25 03:26 06/28/25 04:00 Temperature Pulse Rate 50 L 45 L 60 Respiratory Rate 21 H Blood Pressure Pulse Oximetry 96 Oxygen Delivery CPAP Oxygen Flow Rate Fraction of Inspired Oxygen 06/28/25 07:37 06/28/25 07:43 06/28/25 08:00 Temperature 97.9 F Pulse Rate 77 71 57 L Respiratory Rate 18 18 20 Blood Pressure 169/52 H Pulse Oximetry 92 92 Oxygen Delivery Nasal Cannula Oxygen Flow Rate 3 Fraction of Inspired Oxygen 06/28/25 08:00 06/28/25 08:00 06/28/25 09:20 Temperature Pulse Rate 66 53 L Respiratory Rate Blood Pressure Pulse Oximetry 92 Oxygen Delivery Nasal Cannula Oxygen Flow Rate 3 Fraction of Inspired Oxygen 06/28/25 12:00 Temperature Pulse Rate 63 Respiratory Rate Blood Pressure Pulse Oximetry Oxygen Delivery Oxygen Flow Rate Fraction of Inspired Oxygen Intake/Output Intake/Output: Intake & Output 06/25/25 06/26/25 06/27/25 06/28/25 23:59 23:59 23:59 23:59 Intake Total 880 1000 1390 680 Output Total 300 2350 0 Balance 880 700 -960 680 Meds/Results Medications: Active Medications Generic Name Dose Route Start Last Admin Trade Name Graysonq PRN Reason Stop Dose Admin Acetaminophen 1,000 mg 06/19/25 22:44 06/22/25 21:13 Acetaminophen 500 Mg Tablet PO 1,000 mg TID PRN Administration Mild Pain (1-3) or Fever Allopurinol 100 mg 06/23/25 09:00 06/27/25 08:22 Allopurinol 100 Mg Tablet PO 100 mg Q48HR DAVID Administration Apixaban 2.5 mg 06/23/25 21:00 06/25/25 09:16 Apixaban 2.5 Mg Tablet PO 2.5 mg On Hold: 06/25/25 17:59 Q12HR DAVID Administration Aspirin 81 mg 06/20/25 09:00 06/28/25 09:28 Aspirin 81 Mg Enteric Tablet PO 81 mg DAILY DAVID Administration Atorvastatin Calcium 80 mg 06/20/25 09:55 06/28/25 09:21 Atorvastatin 40 Mg Tablet PO 80 mg DAILY DAVID Administration Bumetanide 1 mg 06/28/25 11:00 06/28/25 12:01 Bumetanide Inj 1 Mg/4 Ml Vial IV PUSH 06/28/25 17:01 1 mg BID DAVID Administration Chlorthalidone 25 mg 06/27/25 10:10 06/28/25 09:21 Chlorthalidone 25 Mg Tablet PO 25 mg DAILY DAVID Administration Dextrose 12.5 gm 06/19/25 21:30 Dextrose 50% 25 Gm/50 Ml Syringe IV PUSH PRN PRN Hypoglycemia Protocol Fluticasone Propionate 1 spray 06/20/25 09:00 06/28/25 09:21 Fluticasone Propionate 0.05% Na Spr 16 Gm Btl (*Bkc) NASAL 1 spray Q12H DAVID Administration Fluticasone/Umeclidinium/Vilanterol 1 puff 06/20/25 09:00 06/28/25 07:36 Fluticasone/Umeclidin/Vilanter 100-62.5-25 Mcg Ellipta INHALATION 1 puff Q24H DAVID Administration Glucose 15 gm 06/19/25 21:30 Glucose Oral Gel 15 Gm Of Glucse In 37.5 Gm Tube PO PRN PRN Hypoglycemia Protocol Guaifenesin 1,200 mg 06/22/25 09:20 06/28/25 09:20 Guaifenesin 12 Hr 600 Mg Tabcr PO 1,200 mg Q12HR DAVID Administration Hydralazine HCl 100 mg 06/22/25 17:00 06/28/25 12:08 Hydralazine Hcl 50 Mg Tablet PO 100 mg QID DAVID Administration Dextrose 1,000 mls @ 100 mls/hr 06/19/25 21:30 Dextrose 5% 1,000 Ml IVPB PRN PRN Hypoglycemia Protocol Ceftriaxone Sodium 1 gm/ 50 mls @ 100 mls/hr 06/22/25 09:00 06/28/25 09:51 Sodium Chloride IVPB Infused Q24H DAVID Infusion Levofloxacin/Dextrose 750 mg in 150 mls @ 100 mls/hr 06/22/25 09:00 06/28/25 10:51 Levaquin 750 Mg/D5w 150 Ml IVPB Infused Q48HR DAVID Infusion Insulin Aspart 2 - 5 units 06/20/25 08:00 06/28/25 12:02 Insulin Aspart (*Bkc) 100 Units/Ml SUB-Q 2 units TIDWM DAVID Administration Protocol Insulin Aspart 1 - 2 units 06/20/25 21:00 06/27/25 20:21 Insulin Aspart (*Bkc) 100 Units/Ml SUB-Q Not Given HS [facility] Protocol Isosorbide Mononitrate 60 mg 06/20/25 09:50 06/28/25 09:20 Isosorbide Mononitrate 60 Mg Tab.Er.24h PO 60 mg DAILY DAVID Administration Levalbuterol HCl 0.63 mg 06/21/25 19:41 06/27/25 19:43 Levalbuterol Neb 1.25 Mg/3 Ml INHALATION 0.63 mg Q6HRT PRN Administration shortness of breath Levothyroxine Sodium 100 mcg 06/21/25 06:30 06/28/25 06:13 Levothyroxine Sodium 100 Mcg Tablet PO 100 mcg DAILY@0630 DAVID Administration Losartan Potassium 100 mg 06/20/25 09:00 06/22/25 09:16 Losartan Potassium 100 Mg Tablet PO 100 mg On Hold: 06/22/25 15:20 DAILY DAVID Administration Nifedipine 30 mg 06/24/25 18:10 06/28/25 09:20 Nifedipine 30 Mg Tab.Er.24 PO 30 mg BID DAVID Administration Sotalol HCl 40 mg 06/21/25 09:00 06/28/25 09:20 Sotalol Hcl 40 Mg Tablet PO 40 mg DAILY DAVID Administration Radiology Results: ITS Impressions Pulmonary Perfusion Imaging 06/21/25 11:25 IMPRESSION: No compelling or large segmental size areas of mismatch, and with right base findings on today's chest x-ray, the perfusion mismatch in the right base is of uncertain significance. Per PIOPED criteria, this is an indeterminate INTERMEDIATE probability for pulmonary embolus. Renal Ultrasound 06/21/25 13:56 IMPRESSION: 1. Normal kidneys without hydronephrosis. Chest CT 06/21/25 14:30 IMPRESSION: 1. Bibasilar consolidations likely associated with aspiration versus community- acquired pneumonia. Mucoid appearing changes in the bronchi endotracheal air column support aspiration. Findings should be followed radiographically until clear. 2. Other chronic appearing findings. Arterial/Peripheral Duplex 06/25/25 14:48 IMPRESSION: 1. No Doppler evidence of renal artery stenosis. Chest X-Ray 06/26/25 14:04 Impression: CHF. Superimposed probable pneumonia. The findings are progressed compared to the previous study. Pelvic/Transvag US 06/26/25 14:16 Impression: Findings are concerning for endometrial neoplasm. Labs Labs: Laboratory Results - last 24 hr 06/22/25 06/27/25 06/27/25 01:18 16:37 20:18 WBC RBC Hgb Hct MCV MCH MCHC RDW Plt Count MPV Immature Gran % (Auto) Neut % (Auto) Lymph % (Auto) Bacon % (Auto) Eos % (Auto) Baso % (Auto) Lymph # (Auto) Bacon # (Auto) Eos # (Auto) Baso # (Auto) Abs Immat Gran (auto) Absolute Neuts (auto) Absolute Nucleated RBC Nucleated RBC % Sodium Potassium Chloride Carbon Dioxide Anion Gap BUN Creatinine Estim Creat Clear Calc Estimated GFR Glucose POC Capillary Glucose 172 H 196 H Calcium Phosphorus Magnesium Total Bilirubin AST ALT Alkaline Phosphatase Total Protein Albumin [id number] 188 H Alpha-1-AT Phenotype Mm 06/28/25 06/28/25 06/28/25 03:43 07:53 11:34 WBC 8.0 RBC 3.09 L Hgb 10.2 L Hct 31.4 L MCV 101.6 H MCH 33.0 MCHC 32.5 RDW 14.6 H Plt Count 182 MPV 12.3 H Immature Gran % (Auto) 0.7 H Neut % (Auto) 64.7 Lymph % (Auto) 24.0 Bacon % (Auto) 8.7 H Eos % (Auto) 1.5 Baso % (Auto) 0.4 Lymph # (Auto) 1.93 Bacon # (Auto) 0.7 H Eos # (Auto) 0.1 Baso # (Auto) 0.0 Abs Immat Gran (auto) 0.06 H Absolute Neuts (auto) 5.2 Absolute Nucleated RBC 0.000 Nucleated RBC % 0.0 Sodium 133 L Potassium 4.5 Chloride 105 Carbon Dioxide 20 L Anion Gap 8 BUN 76 H Creatinine 2.21 H Estim Creat Clear Calc 21 Estimated GFR 22 L Glucose 140 H POC Capillary Glucose 163 H 235 H Calcium 8.8 Phosphorus 4.2 Magnesium 2.8 H Total Bilirubin 0.7 AST 32 ALT 34 Alkaline Phosphatase 93 Total Protein 6.4 Albumin 3.4 L [id number] Alpha-1-AT Phenotype Quality VTE Prophylaxis VTE prophylaxis: pharmacologic ordered (Heparin gtt)
[2025-06-29] VITALS (16 sets, daily range): BP systolic 150–164; BP diastolic 45–65; PULSE 46–83; RESP 19–24; TEMP 36.4–37; O2SAT 87–97
[2025-06-29 04:06] LABS: Hematocrit 29.9 % (37.0-47.0); Hemoglobin 9.6 g/dL (12.0-15.0); Immature Granulocyte Percent A 0.7 % (0-0.5); Lymphocytes Absolute Auto 2.23 K/mm3 (0.9-3.2); Mean Corpuscular HGB Conc 32.1 g/dl (32-36); Mean Corpuscular Hemoglobin 32.3 pg (26-34); Mean Corpuscular Volume 100.7 fl (80-100); Nucleated Red Blood Cells Absolute Auto 0.000 K/mm3 (0.0-0.012); Nucleated Red Blood Cells Perc 0.0 % (0.0-0.2); Platelet Count Result 181 k/mm3 (150-375); Red Blood Count 2.97 M/mm3 (4.2-5.4); White Blood Count 8.5 K/mm3 (4.5-10.0)
[2025-06-29 04:18] LABS: Alanine Aminotransferase 35 U/L (6-35); Albumin Level 3.2 g/dL (3.5-5.1); Alkaline Phosphatase 91 U/L (38-126); Anion Gap 5 mmol/L (4-12); Aspartate Amino Transferase 35 U/L (14-36); Bilirubin,Total 0.6 mg/dL (0.2-1.3); Blood Urea Nitrogen 80 mg/dL (7-17); Calcium 8.6 mg/dL (8.4-10.2); Carbon Dioxide 22 mmol/L (22-30); Chloride 105 mmol/L (98-107); Estimated CRCL calculation 19 ml/min; Estimated Glomerular Filt Rate 18; Glucose 150 mg/dL (65-110); Magnesium 2.6 mg/dL (1.6-2.3); Potassium 4.2 mmol/L (3.4-5.0); Sodium 132 mmol/L (137-145); Total Protein 6.0 g/dL (6.3-8.2)
[2025-06-29] MEDS: LEVOTHYROXINE SODIUM 100 MCG TABLET PO (06:11)
[2025-06-29] MEDS: ISOSORBIDE MONONITRATE 60 MG TAB.ER.24H PO (08:32)
[2025-06-29] MEDS: ATORVASTATIN 40 MG TABLET 80 MG PO (08:32)
[2025-06-29] MEDS: cefTRIAXone 1 GM in SODIUM CHLORIDE 0.9% IV 50 ML 100 ML IVPB (08:32)
[2025-06-29] MEDS: ASPIRIN 81 MG ENTERIC TABLET PO (08:32)
[2025-06-29] MEDS: FLUTICASONE PROPIONATE 0.05% NA SPR 16 GM BTL (*BKC) 1 SPRAY NASAL ×2 (08:33→21:46)
[2025-06-29] MEDS: CHLORTHALIDONE 25 MG TABLET PO (08:33)
[2025-06-29] MEDS: guaiFENesin 12 HR 600 MG TABCR 1200 MG PO ×2 (08:33→21:41)
[2025-06-29] MEDS: FLUTICASONE/UMECLIDIN/VILANTER 100-62.5-25 MCG ELLIPTA 1 PUFF INHALATION (09:05)
--- NOTE | 2025-06-29 10:20 | P.PNNP_ITS ---
Progress Note: A&P Assessment and Plan (1) Acute kidney injury: Code(s): N17.9 - Acute kidney failure, unspecified Status: Acute Assessment and Plan: * baseline creatinine runs in the 1.3-1.6 range as of a couple of months ago. * as noted on admission, creatinine was 2.26mg/dL. After admission it came down a little bit and Since then it has been up and down. Today it is a little bit better. * fluctuating since hospitalization began * I agree that she possibly has new baseline or element of CKD progression? (see #2) * several issues playing a role: * CHF exacerbation * Afib with RVR * COPD * hypoxia(?) * diuresis * ARB + HCTZ use prior to admission * other(?) * evaluation to date noted: * renal ultrasound w/o obstruction * urine electrolytes nonprerenal * urine eosinophils negative * noted proteinuria * CPK normal * Creatinine is up a little bit, most likely could because of the diuretics yesterday. * Unfortunately, the patient is probably at a new baseline as she will continue to need diuretics to keep out of heart failure and this will keep the creatinine elevated to some degree. (2) Stage 3b chronic kidney disease: Code(s): N18.32 - Chronic kidney disease, stage 3b Status: Chronic Assessment and Plan: * baseline creatinine seems to run ~ 1.3 - 1.7mg/dl * however, has been as high as 2.0mg/dl * this causes her to fluctuate between CKD state 3b and stage 4 * secondary to hypertension, diabetes vascular disease (CAD + hyperlipidemia), COPD/DENNIS, and age-related change * follows with Jennifer Chairez NP/Dr. Young for CKD management (3) CHF (congestive heart failure): Qualifiers: Heart failure chronicity: unspecified Heart failure type: unspecified Qualified Code(s): I50.9 - Heart failure, unspecified Code(s): I50.9 - Heart failure, unspecified Status: Acute Assessment and Plan: * suggeste by pulmonary vascular congestion on x-ray and exam * This had improved but now is back again. * no lower extremity edema * reportedly just discharged from [facility] in December 2024 with heart failure (but not sent home on diuretics), * Echo results noted: * left ventricular systolic function is normal, estimated at 65 - 70% * mitral valve has moderately calcified leaflets and a moderately calcified annulus * mild mitral valve regurgitation * mild tricuspid valve regurgitation * severe pulmonary hypertension, estimated pulmonary arterial systolic pressure is 63 mmHg. * She responded well to the Bumex yesterday. (4) Atrial fibrillation with rapid ventricular response: Code(s): I48.91 - Unspecified atrial fibrillation Status: Acute Assessment and Plan: * admission EKG showed AFib with RVR rate 155 * acheived rate control with IV Cardiazem * on heparin gtt * on sotalol * Pulse in the 50s still (5) COPD (chronic obstructive pulmonary disease): Code(s): J44.9 - Chronic obstructive pulmonary disease, unspecified Status: Acute Assessment and Plan: * Pulmonary following with recommendations noted * on inhalers * supplemental oxygen PRN * This also explains some of her shortness of breath (6) Pulmonary hypertension: Code(s): I27.20 - Pulmonary hypertension, unspecified Status: Acute Assessment and Plan: * as seen on echocardiogram with RVSP of 63 mmHg * Pulmonology and Cardiology following (7) Hypertension: Qualifiers: Hypertension type: essential hypertension Qualified Code(s): I10 - Essential (primary) hypertension Code(s): I10 - Essential (primary) hypertension Status: Acute Assessment and Plan: * quite erratic control . systolis 150s and 160s * off ARB due to #1 * titrated hydralazine and nifedipine to bid recently * Changed hydrochlorothiazide to chlorthalidone the other day * See what the trend is and maybe adjust medications again tomorrow (8) Type 2 diabetes mellitus with diabetic chronic kidney disease: Code(s): E11.22 - Type 2 diabetes mellitus with diabetic chronic kidney disease Status: Acute Assessment and Plan: * follow accu-cheks * glycemic control per hospitalist Will continue to follow. Subjective Date/time seen: 06/29/25 10:20 Interval history: Alert. Feels okay. Slept better. Breathing is better. Exam Narrative: General: elderly but WD/WN female in NAD Heart: IRRR, normal S1 and S2; no rub or gallop Lungs: Mildly coarse breath sounds Abdomen: soft, nontender, nondistended, positive bowel sounds Extremities: trace edema Skin: no rash or subcu nodules Objective Data Vital Signs Vital Signs: Vital Signs - 24 hr 06/28/25 12:00 06/28/25 16:00 06/28/25 16:00 Temperature 98.3 F Pulse Rate 63 57 L 56 L Respiratory Rate 28 H Blood Pressure 160/44 H Pulse Oximetry 91 Oxygen Delivery Oxygen Flow Rate Fraction of Inspired Oxygen 06/28/25 20:00 06/28/25 20:00 06/28/25 20:00 Temperature 97.9 F Pulse Rate 53 L 53 L 53 L Respiratory Rate 20 24 H Blood Pressure 152/52 H Pulse Oximetry 91 92 Oxygen Delivery CPAP Oxygen Flow Rate Fraction of Inspired Oxygen 30 06/28/25 20:13 06/28/25 20:57 06/29/25 00:00 Temperature 98 F Pulse Rate 56 L 51 L 83 Respiratory Rate 26 H 24 H 22 H Blood Pressure 150/65 H Pulse Oximetry 92 96 Oxygen Delivery CPAP Oxygen Flow Rate Fraction of Inspired Oxygen 06/29/25 00:00 06/29/25 01:00 06/29/25 04:00 Temperature Pulse Rate 51 L 46 L 49 L Respiratory Rate 20 Blood Pressure Pulse Oximetry 97 Oxygen Delivery CPAP Oxygen Flow Rate Fraction of Inspired Oxygen 06/29/25 08:00 06/29/25 08:00 06/29/25 08:00 Temperature 98.6 F Pulse Rate 55 L 53 L Respiratory Rate 23 H Blood Pressure 153/46 H Pulse Oximetry 92 92 Oxygen Delivery Nasal Cannula Oxygen Flow Rate 3 Fraction of Inspired Oxygen 06/29/25 09:06 Temperature Pulse Rate Respiratory Rate Blood Pressure Pulse Oximetry 92 Oxygen Delivery Nasal Cannula Oxygen Flow Rate 3 Fraction of Inspired Oxygen Intake/Output Intake/Output: Intake & Output 06/26/25 06/27/25 06/28/25 06/29/25 23:59 23:59 23:59 23:59 Intake Total 1000 1390 800 400 Output Total 300 2350 1700 1200 Balance 700 -960 -900 -800 Meds/Results Medications: Active Medications Generic Name Dose Route Start Last Admin Trade Name Freq PRN Reason Stop Dose Admin Acetaminophen 1,000 mg 06/19/25 22:44 06/22/25 21:13 Acetaminophen 500 Mg Tablet PO 1,000 mg TID PRN Administration Mild Pain (1-3) or Fever Allopurinol 100 mg 06/23/25 09:00 06/29/25 08:33 Allopurinol 100 Mg Tablet PO 100 mg Q48HR DAVID Administration Apixaban 2.5 mg 06/23/25 21:00 06/25/25 09:16 Apixaban 2.5 Mg Tablet PO 2.5 mg On Hold: 06/25/25 17:59 Q12HR DAVID Administration Aspirin 81 mg 06/20/25 09:00 06/29/25 08:32 Aspirin 81 Mg Enteric Tablet PO 81 mg DAILY DAVID Administration Atorvastatin Calcium 80 mg 06/20/25 09:55 06/29/25 08:32 Atorvastatin 40 Mg Tablet PO 80 mg DAILY DAVID Administration Chlorthalidone 25 mg 06/27/25 10:10 06/29/25 08:33 Chlorthalidone 25 Mg Tablet PO 25 mg DAILY DAVID Administration Dextrose 12.5 gm 06/19/25 21:30 Dextrose 50% 25 Gm/50 Ml Syringe IV PUSH PRN PRN Hypoglycemia Protocol Fluticasone Propionate 1 spray 06/20/25 09:00 06/29/25 08:33 Fluticasone Propionate 0.05% Na Spr 16 Gm Btl (*Bkc) NASAL 1 spray Q12H DAVID Administration Fluticasone/Umeclidinium/Vilanterol 1 puff 06/20/25 09:00 06/29/25 09:05 Fluticasone/Umeclidin/Vilanter 100-62.5-25 Mcg Ellipta INHALATION 1 puff Q24H DAVID Administration Glucose 15 gm 06/19/25 21:30 Glucose Oral Gel 15 Gm Of Glucse In 37.5 Gm Tube PO PRN PRN Hypoglycemia Protocol Guaifenesin 1,200 mg 06/22/25 09:20 06/29/25 08:33 Guaifenesin 12 Hr 600 Mg Tabcr PO 1,200 mg Q12HR DAVID Administration Hydralazine HCl 100 mg 06/22/25 17:00 06/29/25 08:32 Hydralazine Hcl 50 Mg Tablet PO 100 mg QID ADVID Administration Dextrose 1,000 mls @ 100 mls/hr 06/19/25 21:30 Dextrose 5% 1,000 Ml IVPB PRN PRN Hypoglycemia Protocol Ceftriaxone Sodium 1 gm/ 50 mls @ 100 mls/hr 06/22/25 09:00 06/29/25 08:32 Sodium Chloride IVPB 100 mls/hr Q24H DAVID Administration Levofloxacin/Dextrose 750 mg in 150 mls @ 100 mls/hr 06/22/25 09:00 06/28/25 10:51 Levaquin 750 Mg/D5w 150 Ml IVPB Infused Q48HR DAVID Infusion Insulin Aspart 2 - 5 units 06/20/25 08:00 06/29/25 07:46 Insulin Aspart (*Bkc) 100 Units/Ml SUB-Q Not Given TIDWM DAVID Protocol Insulin Aspart 1 - 2 units 06/20/25 21:00 06/28/25 20:29 Insulin Aspart (*Bkc) 100 Units/Ml SUB-Q Not Given HS DAVID Protocol Isosorbide Mononitrate 60 mg 06/20/25 09:50 06/29/25 08:32 Isosorbide Mononitrate 60 Mg Tab.Er.24h PO 60 mg DAILY DAVID Administration Levalbuterol HCl 0.63 mg 06/21/25 19:41 06/28/25 20:57 Levalbuterol Neb 1.25 Mg/3 Ml INHALATION 0.63 mg Q6HRT PRN Administration shortness of breath Levothyroxine Sodium 100 mcg 06/21/25 06:30 06/29/25 06:11 Levothyroxine Sodium 100 Mcg Tablet PO 100 mcg DAILY@0630 DAVID Administration Losartan Potassium 100 mg 06/20/25 09:00 06/22/25 09:16 Losartan Potassium 100 Mg Tablet PO 100 mg On Hold: 06/22/25 15:20 DAILY DAVID Administration Nifedipine 30 mg 06/24/25 18:10 06/29/25 08:33 Nifedipine 30 Mg Tab.Er.24 PO 30 mg BID DAVID Administration Sotalol HCl 40 mg 06/21/25 09:00 06/29/25 08:32 Sotalol Hcl 40 Mg Tablet PO 40 mg DAILY DAVID Administration Radiology Results: ITS Impressions Pulmonary Perfusion Imaging 06/21/25 11:25 IMPRESSION: No compelling or large segmental size areas of mismatch, and with right base findings on today's chest x-ray, the perfusion mismatch in the right base is of uncertain significance. Per PIOPED criteria, this is an indeterminate INTERMEDIATE probability for pulmonary embolus. Renal Ultrasound 06/21/25 13:56 IMPRESSION: 1. Normal kidneys without hydronephrosis. Chest CT 06/21/25 14:30 IMPRESSION: 1. Bibasilar consolidations likely associated with aspiration versus community- acquired pneumonia. Mucoid appearing changes in the bronchi endotracheal air column support aspiration. Findings should be followed radiographically until clear. 2. Other chronic appearing findings. Arterial/Peripheral Duplex 06/25/25 14:48 IMPRESSION: 1. No Doppler evidence of renal artery stenosis. Chest X-Ray 06/26/25 14:04 Impression: CHF. Superimposed probable pneumonia. The findings are progressed compared to the previous study. Pelvic/Transvag US 06/26/25 14:16 Impression: Findings are concerning for endometrial neoplasm. Labs Labs: Laboratory Results - last 24 hr 06/28/25 06/28/25 06/28/25 11:34 15:43 20:10 WBC RBC Hgb Hct MCV MCH MCHC RDW Plt Count MPV Immature Gran % (Auto) Neut % (Auto) Lymph % (Auto) Woodson % (Auto) Eos % (Auto) Baso % (Auto) Lymph # (Auto) Woodson # (Auto) Eos # (Auto) Baso # (Auto) Abs Immat Gran (auto) Absolute Neuts (auto) Absolute Nucleated RBC Nucleated RBC % Sodium Potassium Chloride Carbon Dioxide Anion Gap BUN Creatinine Estim Creat Clear Calc Estimated GFR Glucose POC Capillary Glucose 235 H 118 H 173 H Calcium Phosphorus Magnesium Total Bilirubin AST ALT Alkaline Phosphatase Total Protein Albumin 06/29/25 06/29/25 03:34 07:16 WBC 8.5 RBC 2.97 L Hgb 9.6 L Hct 29.9 L MCV 100.7 H MCH 32.3 MCHC 32.1 RDW 14.4 Plt Count 181 MPV 12.2 H Immature Gran % (Auto) 0.7 H Neut % (Auto) 62.0 Lymph % (Auto) 26.2 Woodson % (Auto) 9.1 H Eos % (Auto) 1.5 Baso % (Auto) 0.5 Lymph # (Auto) 2.23 Woodson # (Auto) 0.8 H Eos # (Auto) 0.1 Baso # (Auto) 0.0 Abs Immat Gran (auto) 0.06 H Absolute Neuts (auto) 5.3 Absolute Nucleated RBC 0.000 Nucleated RBC % 0.0 Sodium 132 L Potassium 4.2 Chloride 105 Carbon Dioxide 22 Anion Gap 5 BUN 80 H Creatinine 2.53 H Estim Creat Clear Calc 19 Estimated GFR 18 L Glucose 150 H POC Capillary Glucose 157 H Calcium 8.6 Phosphorus 4.4 Magnesium 2.6 H Total Bilirubin 0.6 AST 35 ALT 35 Alkaline Phosphatase 91 Total Protein 6.0 L Albumin 3.2 L
--- NOTE | 2025-06-29 11:49 | PCRCNOTE ---
HOME O2 EVAL DONE, PT. REQUIRES 2LPM AT REST AND 3LPM WITH ACTIVITY. 6LPM BLEED IN WITH CPAP. PT. DME IS IV RESP CARE. TANK IN ROOM.
--- NOTE | 2025-06-29 11:52 | HOMEO2EVAL ---
Evaluation was performed at [facility] Home Oxygen Evaluation RC: Home Oxygen (O2) Evaluation Start: 06/24/25 10:51 Freq: ONCE Status: Active Protocol: RPE Activity Type Activity Date Activity User E-sign Co-sign Detail Recorded Client Recorded Date Recorded By Document 06/29/25 11:16 KRM [id number] 06/29/25 11:52 KRM Document 06/29/25 11:17 [email or web address] [id number] 06/29/25 11:52 KRM Document 06/29/25 11:20 [email or web address] [email or web address] 06/29/25 11:52 KRM Document 06/29/25 11:22 [email or web address] [email or web address] 06/29/25 11:52 KRM Document 06/29/25 11:25 [email or web address] [email or web address] 06/29/25 11:52 KRM 06/29/25 06/29/25 06/29/25 11:16 11:17 11:20 Home O2 Evaluation [Oxygen] -Test Phase Resting Resting Resting -Oxygen Delivery Room Air Nasal Cannula Nasal Cannula -Oxygen Flow Rate (L/min) 1 2 [Pulse Oximetry] -Pulse Oximetry (90-100 %) 87 L 88 L 91 [Pulse Rate] -Pulse Rate (60-100 beats/min) 55 L 52 L 54 L [Evaluation] -Activity Tolerance [Exercise] -Ambulation Distance (feet) -Ambulation Distance (meters) [Comments] -Home Oxygen Evaluation Comments [Charges] -Evaluation Charges 06/29/25 06/29/25 11:22 11:25 Home O2 Evaluation [Oxygen] -Test Phase Exercise Exercise -Oxygen Delivery Nasal Cannula Nasal Cannula -Oxygen Flow Rate (L/min) 2 3 [Pulse Oximetry] -Pulse Oximetry (90-100 %) 87 L 90 [Pulse Rate] -Pulse Rate (60-100 beats/min) 54 L 54 L [Evaluation] -Activity Tolerance Good Good [Exercise] -Ambulation Distance (feet) 60 -Ambulation Distance (meters) 18.28 [Comments] -Home Oxygen Evaluation Comments 2LPM O2 AT REST , 3LPM O2 WITH ACTIVITY. [Charges] -Evaluation Charges O2 Evaluation by Pulmonary
--- NOTE | 2025-06-29 12:22 | P.PNIM_ITS ---
Progress Note: A&P Assessment and Plan (1) CHF (congestive heart failure): Qualifiers: Heart failure chronicity: unspecified Heart failure type: unspecified Qualified Code(s): I50.9 - Heart failure, unspecified Code(s): I50.9 - Heart failure, unspecified Status: Acute Assessment and Plan: Pulmonary vascular congestion on x-ray/auscultation of lungs. No lower extremity edema. Reports she was discharged from [facility] in December 2024 with heart failure but not sent home on diuretics. Patient did receive 1 L normal saline bolus in the ER, -admitted with AFib with RVR is controlled we will monitor. Continue heparin gtt. - Daily weights, strict intake/output. -Pt diagnosed with CHF December 2024 with no new meds. -06/21: V/Q scan showed intermediate probability for PE -06/21: overnight patient had increased oxygen requirements, currently on 8 L nasal cannula -06/21: Chest x-ray showed pulmonary vascular congestion, will give Lasix - patient may have HFpEF since she has diastolic dysfunction as seen on echocardiogram is under which could be related to her systemic hypertension and pulmonary hypertension 06/23: Adjusted oral antihypertensive medication. Holding losartan due to DEBBIE on CKD. Increase hydralazine from 75 mg 100 mg qid.. Added nifedipine 30 mg p.o. q.d.. Will continue hydrochlorothiazide 12.5 mg p.o. q.d. and isosorbide mononitrate 60 mg p.o. q.d. and sotalol 40 mg p.o. q.d. Nifedipine increased to 30 mg b.i.d. losartan remains on hold Recheck chest x-ray 06/29/2025 clinically patient is getting better. Will continue with diuresis as needed. 06/20/25: Echocardiogram Summary 1. Definity contrast administered improved wall motion interpretation. 2. Left ventricular chamber dimension is normal. 3. Left ventricular systolic function is normal, estimated at 65-70. 4. There is moderate concentric increased left ventricular wall thickness. 5. E/e' 48 is significantly elevated. 6. Left atrial chamber dimension is severely enlarged. 7. The mitral valve has moderately calcified leaflets and a moderately calcified annulus. 8. There is mild mitral valve regurgitation. 9. There is mild tricuspid valve regurgitation. 10. Severe pulmonary hypertension, estimated pulmonary arterial systolic pressure is 63 mmHg. 11. Dilated inferior vena cava with >50% collapse upon inspiration consistent with elevated right atrial pressure, 10 mmHg. (2) Atrial fibrillation with rapid ventricular response: Code(s): I48.91 - Unspecified atrial fibrillation Status: Acute Assessment and Plan: ED EKG showed AFib with RVR rate 155, patient received Cardizem 15 mg IV x1, with subsequent rate control an EKG demonstrating AFib. Shortness of breath resolved. Currently AFib with controlled rate. Stop the heparin and started Eliquis -appreciate cardiology evaluation recommendation -06/20: started on sotalol b.i.d. which has been decreased to once daily due to bradycardia (on 06/21) -TSH within normal limits, -magnesium and potassium levels within normal limits -continue IMU status -started patient on Eliquis -echocardiogram as above Eliquis on hold due to vaginal bleed (3) DEBBIE (acute kidney injury): Code(s): N17.9 - Acute kidney failure, unspecified Status: Acute Assessment and Plan: Now that her AFib with RVR is controlled we will monitor. Daily weights, strict intake/output. -1L given in ED, pt with CHF hx (new December 2024) -DEBBIE could be related to elevated blood pressure, CHF, atrial fibrillation 06/20: Creatinine baseline seems to be around 1.3-1.6, -creatinine gradually improving -continue blood pressure medications -nephrology on board Losartan on hold Creatinine 2.21 today (4) Chronic kidney disease, stage 3b: Code(s): N18.32 - Chronic kidney disease, stage 3b Status: Acute Assessment and Plan: Holding losartan Increasing hydralazine from 75 mg to 100 q.i.d. Holding losartan due to DEBBIE on CKD. Increase hydralazine from 75 mg 100 mg qid.. Added nifedipine 30 mg p.o. q.d.. Will continue hydrochlorothiazide 12.5 mg p.o. q.d. and isosorbide mononitrate 60 mg p.o. q.d. and sotalol 40 mg p.o. q.d. Nifedipine increased to 30 mg b.i.d. (5) COPD (chronic obstructive pulmonary disease): Code(s): J44.9 - Chronic obstructive pulmonary disease, unspecified Status: Acute Assessment and Plan: Mild COPD exacerbation, her symptoms could have been related to AFib and pulmonary vascular congestion. received Solu-Medrol with EMS. 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 06/20: Pt with clear lungs today -Steroids given in ED, if wheezing continues, may give additional steroids. -06/21: Increasing oxygen requirements. - Appreciate pulmonology evaluation -patient with HFpEF, possible COPD, possible PE as V/Q scan on 06/21 showed intermediate probability -continue anticoagulation -continue Trelegy per pulmonology (6) CAD (coronary artery disease): Qualifiers: Coronary Disease-Associated Artery/Lesion type: unspecified vessel or lesion type [place] vs. transplanted heart: unspecified whether [place] or transplanted heart Associated angina: unspecified whether angina present Qualified Code(s): I25.10 - Atherosclerotic heart disease of [place] coronary artery without angina pectoris Code(s): I25.10 - Atherosclerotic heart disease of [place] coronary artery without angina pectoris Status: Acute Assessment and Plan: 06/20: S/p stents. 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 (7) Type 2 diabetes mellitus with diabetic chronic kidney disease: Code(s): E11.22 - Type 2 diabetes mellitus with diabetic chronic kidney disease Status: Acute Assessment and Plan: Accu-Cheks ACHS with low-dose insulin sliding scale and hypoglycemia protocol. 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 Patient does state that her blood pressures are normally in the 160s to 180s range -increase hydralazine 75 mg Q i.d. to 100 mg q.i.d. -Continue to monitor -continue isosorbide 60 mg p.o. q.d., nifedipine 30 mg p.o. q.d., sotalol 40 mg p.o. q.d. nifedipine increased to 30 mg b.i.d. Renal ultrasound negative for renal artery stenosis Losartan on hold due to DEBBIE (9) Pulmonary hypertension: Code(s): I27.20 - Pulmonary hypertension, unspecified Status: Acute Assessment and Plan: Severe pulmonary hypertension as seen on echocardiogram with RVSP of 63 mmHg -pulmonology and cardiology following the patient (10) Vaginal bleeding: Code(s): N93.9 - Abnormal uterine and vaginal bleeding, unspecified Status: Acute Assessment and Plan: Reviewed ultrasound which shows possible neoplasm Biopsy as per gynecology recommendations Continue hold Eliquis Gynecology following Monitor H&H Plan Vaginal bleed: Pelvic ultrasound pending. Gynecology consulted DVT prophylaxis: Apixaban which is currently on hold Stress ulcer prophylaxis: Not indicated Nutrition: Diabetic and heart healthy diet Code Status: DNR Subjective Date/time seen: 06/29/25 12:22 Interval history: Patient was seen during a muscle today. Patient has mild shortness of breath. No chest pain. No abdominal pain, nausea, no vomiting. Review of Systems Review of Systems: All systems reviewed & are unremarkable except as noted in HPI and below Exam Narrative: General: Pleasant female, not in acute distress HEENT:? Pupils equal reactive, sclera is clear, moist oral mucosa Neck:? Supple Respiratory:? Coarse breath sounds bilaterally, decreased at bases, no wheezing Cardiac:? Is irregularly irregular, rate controlled/bradycardia sinus on telemetry Abdomen:? Soft, nontender, nondistended, protuberant, normoactive bowel sounds Extremities:? Extremities are warm, no cyanosis, no edema Neuro:? Patient is awake, alert, oriented, nonfocal, moving all extremities Skin:? No lesions noted Psych:? Normal mentation and affect Const: General: comfortable and no acute distress Other: A&O x4, obese HENMT: Mouth: Yes moist mucous membranes Eyes: General: appearance normal, both eyes and all related structures Sclera: sclerae normal Pupils: Equal, round and reactive pupils present Neck: Neck: supple Carotids: no bruits Resp: Effort & Inspection: normal respiratory effort Other: Diminished lung sounds, no wheezes present. Tachypneic initially, resolved Cardio: Rate: regular rate Rhythm: regular rhythm and abnormal rhythm Other: Tele: 61bpm GI: Inspection: non-distended Auscultation: normal bowel sounds : General: Yes bladder normal to palpation Bimanual exam- vagina & uterus: bladder normal to palpation Skin: General skin exam: normal color and no rashes or lesions noted Neuro: Cranial nerves: Yes Equal, round and reactive pupils present Motor exam (neuro): 5/5 motor strength present throughout and Normal motor muscle tone present throughout Sensory Exam: normal sensation Extrem: General: no edema Psych: Mental Status: mental status grossly normal Affect: normal affect Objective Data Vital Signs Vital Signs: Vital Signs - 24 hr 06/28/25 16:00 06/28/25 16:00 06/28/25 20:00 Temperature 36.8 C 36.6 C Pulse Rate 57 L 56 L 53 L Respiratory Rate 28 H 20 Blood Pressure 160/44 H 152/52 H Pulse Oximetry 91 91 Oxygen Delivery Oxygen Flow Rate Fraction of Inspired Oxygen 06/28/25 20:00 06/28/25 20:00 06/28/25 20:13 Temperature Pulse Rate 53 L 53 L 56 L Respiratory Rate 24 H 26 H Blood Pressure Pulse Oximetry 92 92 Oxygen Delivery CPAP CPAP Oxygen Flow Rate Fraction of Inspired Oxygen 30 06/28/25 20:57 06/29/25 00:00 06/29/25 00:00 Temperature 36.6 C Pulse Rate 51 L 83 51 L Respiratory Rate 24 H 22 H Blood Pressure 150/65 H Pulse Oximetry 96 Oxygen Delivery Oxygen Flow Rate Fraction of Inspired Oxygen 06/29/25 01:00 06/29/25 04:00 06/29/25 08:00 Temperature 37.0 C Pulse Rate 46 L 49 L 55 L Respiratory Rate 20 23 H Blood Pressure 153/46 H Pulse Oximetry 97 92 Oxygen Delivery CPAP Oxygen Flow Rate Fraction of Inspired Oxygen 06/29/25 08:00 06/29/25 08:00 06/29/25 09:06 Temperature Pulse Rate 53 L Respiratory Rate Blood Pressure Pulse Oximetry 92 92 Oxygen Delivery Nasal Cannula Nasal Cannula Oxygen Flow Rate 3 3 Fraction of Inspired Oxygen 06/29/25 11:16 06/29/25 11:17 06/29/25 11:20 Temperature Pulse Rate 55 L 52 L 54 L Respiratory Rate Blood Pressure Pulse Oximetry 87 L 88 L 91 Oxygen Delivery Room Air Nasal Cannula Nasal Cannula Oxygen Flow Rate 1 2 Fraction of Inspired Oxygen 06/29/25 11:22 06/29/25 11:25 Temperature Pulse Rate 54 L 54 L Respiratory Rate Blood Pressure Pulse Oximetry 87 L 90 Oxygen Delivery Nasal Cannula Nasal Cannula Oxygen Flow Rate 2 3 Fraction of Inspired Oxygen Intake/Output Intake/Output: Intake & Output 06/26/25 06/27/25 06/28/25 06/29/25 23:59 23:59 23:59 23:59 Intake Total 1000 1390 800 640 Output Total 300 2350 1700 1200 Balance 700 -960 -900 -560 Meds/Results Medications: Active Medications Generic Name Dose Route Start Last Admin Trade Name Freq PRN Reason Stop Dose Admin Acetaminophen 1,000 mg 06/19/25 22:44 06/22/25 21:13 Acetaminophen 500 Mg Tablet PO 1,000 mg TID PRN Administration Mild Pain (1-3) or Fever Allopurinol 100 mg 06/23/25 09:00 06/29/25 08:33 Allopurinol 100 Mg Tablet PO 100 mg Q48HR DAVID Administration Apixaban 2.5 mg 06/23/25 21:00 06/25/25 09:16 Apixaban 2.5 Mg Tablet PO 2.5 mg On Hold: 06/25/25 17:59 Q12HR DAVID Administration Aspirin 81 mg 06/20/25 09:00 06/29/25 08:32 Aspirin 81 Mg Enteric Tablet PO 81 mg DAILY DAVID Administration Atorvastatin Calcium 80 mg 06/20/25 09:55 06/29/25 08:32 Atorvastatin 40 Mg Tablet PO 80 mg DAILY DAVID Administration Chlorthalidone 25 mg 06/27/25 10:10 06/29/25 08:33 Chlorthalidone 25 Mg Tablet PO 25 mg DAILY DAVID Administration Dextrose 12.5 gm 06/19/25 21:30 Dextrose 50% 25 Gm/50 Ml Syringe IV PUSH PRN PRN Hypoglycemia Protocol Fluticasone Propionate 1 spray 06/20/25 09:00 06/29/25 08:33 Fluticasone Propionate 0.05% Na Spr 16 Gm Btl (*Bkc) NASAL 1 spray Q12H DAVID Administration Fluticasone/Umeclidinium/Vilanterol 1 puff 06/20/25 09:00 06/29/25 09:05 Fluticasone/Umeclidin/Vilanter 100-62.5-25 Mcg Ellipta INHALATION 1 puff Q24H DAVID Administration Glucose 15 gm 06/19/25 21:30 Glucose Oral Gel 15 Gm Of Glucse In 37.5 Gm Tube PO PRN PRN Hypoglycemia Protocol Guaifenesin 1,200 mg 06/22/25 09:20 06/29/25 08:33 Guaifenesin 12 Hr 600 Mg Tabcr PO 1,200 mg Q12HR DAVID Administration Hydralazine HCl 100 mg 06/22/25 17:00 06/29/25 08:32 Hydralazine Hcl 50 Mg Tablet PO 100 mg QID DAVID Administration Dextrose 1,000 mls @ 100 mls/hr 06/19/25 21:30 Dextrose 5% 1,000 Ml IVPB PRN PRN Hypoglycemia Protocol Ceftriaxone Sodium 1 gm/ 50 mls @ 100 mls/hr 06/22/25 09:00 06/29/25 08:32 Sodium Chloride IVPB 100 mls/hr Q24H DAVID Administration Levofloxacin/Dextrose 750 mg in 150 mls @ 100 mls/hr 06/22/25 09:00 06/28/25 10:51 Levaquin 750 Mg/D5w 150 Ml IVPB Infused Q48HR DAVID Infusion Insulin Aspart 2 - 5 units 06/20/25 08:00 06/29/25 07:46 Insulin Aspart (*Bkc) 100 Units/Ml SUB-Q Not Given TIDWM DAVID Protocol Insulin Aspart 1 - 2 units 06/20/25 21:00 06/28/25 20:29 Insulin Aspart (*Bkc) 100 Units/Ml SUB-Q Not Given HS DAVID Protocol Isosorbide Mononitrate 60 mg 06/20/25 09:50 06/29/25 08:32 Isosorbide Mononitrate 60 Mg Tab.Er.24h PO 60 mg DAILY DAVID Administration Levalbuterol HCl 0.63 mg 06/21/25 19:41 06/28/25 20:57 Levalbuterol Neb 1.25 Mg/3 Ml INHALATION 0.63 mg Q6HRT PRN Administration shortness of breath Levothyroxine Sodium 100 mcg 06/21/25 06:30 06/29/25 06:11 Levothyroxine Sodium 100 Mcg Tablet PO 100 mcg DAILY@0630 DAVID Administration Losartan Potassium 100 mg 06/20/25 09:00 06/22/25 09:16 Losartan Potassium 100 Mg Tablet PO 100 mg On Hold: 06/22/25 15:20 DAILY DAVID Administration Nifedipine 30 mg 06/24/25 18:10 06/29/25 08:33 Nifedipine 30 Mg Tab.Er.24 PO 30 mg BID DAVID Administration Sotalol HCl 40 mg 06/21/25 09:00 06/29/25 08:32 Sotalol Hcl 40 Mg Tablet PO 40 mg DAILY DAVID Administration Radiology Results: ITS Impressions Pulmonary Perfusion Imaging 06/21/25 11:25 IMPRESSION: No compelling or large segmental size areas of mismatch, and with right base findings on today's chest x-ray, the perfusion mismatch in the right base is of uncertain significance. Per PIOPED criteria, this is an indeterminate INTERMEDIATE probability for pulmonary embolus. Renal Ultrasound 06/21/25 13:56 IMPRESSION: 1. Normal kidneys without hydronephrosis. Chest CT 06/21/25 14:30 IMPRESSION: 1. Bibasilar consolidations likely associated with aspiration versus community- acquired pneumonia. Mucoid appearing changes in the bronchi endotracheal air column support aspiration. Findings should be followed radiographically until clear. 2. Other chronic appearing findings. Arterial/Peripheral Duplex 06/25/25 14:48 IMPRESSION: 1. No Doppler evidence of renal artery stenosis. Chest X-Ray 06/26/25 14:04 Impression: CHF. Superimposed probable pneumonia. The findings are progressed compared to the previous study. Pelvic/Transvag US 06/26/25 14:16 Impression: Findings are concerning for endometrial neoplasm. Labs Labs: Laboratory Results - last 24 hr 06/28/25 06/28/25 06/29/25 15:43 20:10 03:34 WBC 8.5 RBC 2.97 L Hgb 9.6 L Hct 29.9 L MCV 100.7 H MCH 32.3 MCHC 32.1 RDW 14.4 Plt Count 181 MPV 12.2 H Immature Gran % (Auto) 0.7 H Neut % (Auto) 62.0 Lymph % (Auto) 26.2 [place] % (Auto) 9.1 H Eos % (Auto) 1.5 Baso % (Auto) 0.5 Lymph # (Auto) 2.23 [place] # (Auto) 0.8 H Eos # (Auto) 0.1 Baso # (Auto) 0.0 Abs Immat Gran (auto) 0.06 H Absolute Neuts (auto) 5.3 Absolute Nucleated RBC 0.000 Nucleated RBC % 0.0 Sodium 132 L Potassium 4.2 Chloride 105 Carbon Dioxide 22 Anion Gap 5 BUN 80 H Creatinine 2.53 H Estim Creat Clear Calc 19 Estimated GFR 18 L Glucose 150 H POC Capillary Glucose 118 H 173 H Calcium 8.6 Phosphorus 4.4 Magnesium 2.6 H Total Bilirubin 0.6 AST 35 ALT 35 Alkaline Phosphatase 91 Total Protein 6.0 L Albumin 3.2 L 06/29/25 06/29/25 07:16 11:11 WBC RBC Hgb Hct MCV MCH MCHC RDW Plt Count MPV Immature Gran % (Auto) Neut % (Auto) Lymph % (Auto) [place] % (Auto) Eos % (Auto) Baso % (Auto) Lymph # (Auto) [place] # (Auto) Eos # (Auto) Baso # (Auto) Abs Immat Gran (auto) Absolute Neuts (auto) Absolute Nucleated RBC Nucleated RBC % Sodium Potassium Chloride Carbon Dioxide Anion Gap BUN Creatinine Estim Creat Clear Calc Estimated GFR Glucose POC Capillary Glucose 157 H 178 H Calcium Phosphorus Magnesium Total Bilirubin AST ALT Alkaline Phosphatase Total Protein Albumin Quality VTE Prophylaxis VTE prophylaxis: pharmacologic ordered (Heparin gtt)
[2025-06-29] MEDS: INSULIN ASPART (*BKC) 100 UNITS/ML SUB-Q (18:09)
[2025-06-30] VITALS (21 sets, daily range): BP systolic 126–171; BP diastolic 44–71; PULSE 47–104; RESP 16–39; TEMP 34.9–36.8; O2SAT 50–94
[2025-06-30 04:30] LABS: Hematocrit 29.4 % (37.0-47.0); Hemoglobin 9.4 g/dL (12.0-15.0); Mean Corpuscular HGB Conc 32.0 g/dl (32-36); Mean Corpuscular Hemoglobin 32.0 pg (26-34); Mean Corpuscular Volume 100.0 fl (80-100); Platelet Count Result 172 k/mm3 (150-375); Red Blood Count 2.94 M/mm3 (4.2-5.4); White Blood Count 8.5 K/mm3 (4.5-10.0)
[2025-06-30 04:55] LABS: Alanine Aminotransferase 33 U/L (6-35); Albumin Level 3.1 g/dL (3.5-5.1); Alkaline Phosphatase 90 U/L (38-126); Anion Gap 4 mmol/L (4-12); Aspartate Amino Transferase 29 U/L (14-36); Bilirubin,Total 0.5 mg/dL (0.2-1.3); Blood Urea Nitrogen 86 mg/dL (7-17); Calcium 8.5 mg/dL (8.4-10.2); Carbon Dioxide 22 mmol/L (22-30); Chloride 107 mmol/L (98-107); Estimated CRCL calculation 19 ml/min; Estimated Glomerular Filt Rate 19; Glucose 141 mg/dL (65-110); Magnesium 2.6 mg/dL (1.6-2.3); Potassium 4.1 mmol/L (3.4-5.0); Sodium 133 mmol/L (137-145); Total Protein 5.8 g/dL (6.3-8.2)
[2025-06-30] MEDS: LEVOTHYROXINE SODIUM 100 MCG TABLET PO (06:45)
[2025-06-30] MEDS: BUMETANIDE INJ 1 MG/4 ML VIAL IV PUSH (08:20)
--- NOTE | 2025-06-30 08:58 | PC.NURSE ---
This patient, Vashti Littlejohn, was received from [facility] on 06/30/25 at 0845 . Patient/family oriented to unit policies and routines. Report obtained from BRITTNEE Zheng
[2025-06-30] MEDS: FUROSEMIDE INJ 40 MG/4 ML VIAL 60 MG IV PUSH (08:59)
[2025-06-30] MEDS: ALBUTEROL SULFATE NEB 2.5 MG/3 ML INH 15 MG INHALATION (09:01)
--- NOTE | 2025-06-30 09:10 | P.PNIM_ITS ---
Progress Note: A&P Assessment and Plan (1) CHF (congestive heart failure): Qualifiers: Heart failure chronicity: unspecified Heart failure type: unspecified Qualified Code(s): I50.9 - Heart failure, unspecified Code(s): I50.9 - Heart failure, unspecified Status: Acute Assessment and Plan: Pulmonary vascular congestion on x-ray/auscultation of lungs. No lower extremity edema. Reports she was discharged from [facility] in December 2024 with heart failure but not sent home on diuretics. Patient did receive 1 L normal saline bolus in the ER, -admitted with AFib with RVR is controlled we will monitor. Continue heparin gtt. - Daily weights, strict intake/output. -Pt diagnosed with CHF December 2024 with no new meds. -06/21: V/Q scan showed intermediate probability for PE -06/21: overnight patient had increased oxygen requirements, currently on 8 L nasal cannula -06/21: Chest x-ray showed pulmonary vascular congestion, will give Lasix - patient may have HFpEF since she has diastolic dysfunction as seen on echocardiogram is under which could be related to her systemic hypertension and pulmonary hypertension 06/23: Adjusted oral antihypertensive medication. Holding losartan due to DEBBIE on CKD. Increase hydralazine from 75 mg 100 mg qid.. Added nifedipine 30 mg p.o. q.d.. Will continue hydrochlorothiazide 12.5 mg p.o. q.d. and isosorbide mononitrate 60 mg p.o. q.d. and sotalol 40 mg p.o. q.d. Nifedipine increased to 30 mg b.i.d. losartan remains on hold Recheck chest x-ray 06/29/2025 clinically patient is getting better. Will continue with diuresis as needed. 06/30/2025 patient was started on IV Lasix and Bumex and transferred to ICU for further evaluation treatment. 06/20/25: Echocardiogram Summary 1. Definity contrast administered improved wall motion interpretation. 2. Left ventricular chamber dimension is normal. 3. Left ventricular systolic function is normal, estimated at 65-70. 4. There is moderate concentric increased left ventricular wall thickness. 5. E/e' 48 is significantly elevated. 6. Left atrial chamber dimension is severely enlarged. 7. The mitral valve has moderately calcified leaflets and a moderately calcified annulus. 8. There is mild mitral valve regurgitation. 9. There is mild tricuspid valve regurgitation. 10. Severe pulmonary hypertension, estimated pulmonary arterial systolic pressure is 63 mmHg. 11. Dilated inferior vena cava with >50% collapse upon inspiration consistent with elevated right atrial pressure, 10 mmHg. (2) Atrial fibrillation with rapid ventricular response: Code(s): I48.91 - Unspecified atrial fibrillation Status: Acute Assessment and Plan: ED EKG showed AFib with RVR rate 155, patient received Cardizem 15 mg IV x1, with subsequent rate control an EKG demonstrating AFib. Shortness of breath resolved. Currently AFib with controlled rate. Stop the heparin and started Eliquis -appreciate cardiology evaluation recommendation -06/20: started on sotalol b.i.d. which has been decreased to once daily due to bradycardia (on 06/21) -TSH within normal limits, -magnesium and potassium levels within normal limits -transfer to ICU Patient on Eliquis (3) DEBBIE (acute kidney injury): Code(s): N17.9 - Acute kidney failure, unspecified Status: Acute Assessment and Plan: Now that her AFib with RVR is controlled we will monitor. Daily weights, strict intake/output. -1L given in ED, pt with CHF hx (new December 2024) -DEBBIE could be related to elevated blood pressure, CHF, atrial fibrillation 06/20: Creatinine baseline seems to be around 1.3-1.6, -creatinine gradually improving -continue blood pressure medications -nephrology on board Losartan on hold (4) Chronic kidney disease, stage 3b: Code(s): N18.32 - Chronic kidney disease, stage 3b Status: Acute Assessment and Plan: Holding losartan Increasing hydralazine from 75 mg to 100 q.i.d. Holding losartan due to DEBBIE on CKD. Increase hydralazine from 75 mg 100 mg qid.. Added nifedipine 30 mg p.o. q.d.. Will continue hydrochlorothiazide 12.5 mg p.o. q.d. and isosorbide mononitrate 60 mg p.o. q.d. and sotalol 40 mg p.o. q.d. Nifedipine increased to 30 mg b.i.d. (5) COPD (chronic obstructive pulmonary disease): Code(s): J44.9 - Chronic obstructive pulmonary disease, unspecified Status: Acute Assessment and Plan: Mild COPD exacerbation, her symptoms could have been related to AFib and pulmonary vascular congestion. received Solu-Medrol with EMS. Restart REHAB NURSE controller medications. 06/20: Pt with clear lungs today -Steroids given in ED, if wheezing continues, may give additional steroids. -06/21: Increasing oxygen requirements. - Appreciate pulmonology evaluation -patient with HFpEF, possible COPD, possible PE as V/Q scan on 06/21 showed intermediate probability -continue anticoagulation -continue Trelegy per pulmonology 06/30/2025 patient was not getting better on floor Patient was started on BiPAP and transferred to ICU (6) CAD (coronary artery disease): Qualifiers: Coronary Disease-Associated Artery/Lesion type: unspecified vessel or lesion type [place] vs. transplanted heart: unspecified whether [place] or transplanted heart Associated angina: unspecified whether angina present Qualified Code(s): I25.10 - Atherosclerotic heart disease of [place] coronary artery without angina pectoris Code(s): I25.10 - Atherosclerotic heart disease of [place] coronary artery without angina pectoris Status: Acute Assessment and Plan: 06/20: S/p stents. Resume REHAB NURSE aspirin and atorvastatin. (7) Type 2 diabetes mellitus with diabetic chronic kidney disease: Code(s): E11.22 - Type 2 diabetes mellitus with diabetic chronic kidney disease Status: Acute Assessment and Plan: Accu-Cheks ACHS with low-dose insulin sliding scale and hypoglycemia protocol. (8) Hypertension: Qualifiers: Hypertension type: essential hypertension Qualified Code(s): I10 - Essential (primary) hypertension Code(s): I10 - Essential (primary) hypertension Status: Acute Assessment and Plan: Acute on chronic. REHAB NURSE antihypertensives once med rec entered. Patient does state that her blood pressures are normally in the 160s to 180s range -increase hydralazine 75 mg Q i.d. to 100 mg q.i.d. -Continue to monitor -continue isosorbide 60 mg p.o. q.d., nifedipine 30 mg p.o. q.d., sotalol 40 mg p.o. q.d. nifedipine increased to 30 mg b.i.d. Renal ultrasound negative for renal artery stenosis Losartan on hold due to DEBBIE (9) Pulmonary hypertension: Code(s): I27.20 - Pulmonary hypertension, unspecified Status: Acute Assessment and Plan: Severe pulmonary hypertension as seen on echocardiogram with RVSP of 63 mmHg -pulmonology and cardiology following the patient (10) Vaginal bleeding: Code(s): N93.9 - Abnormal uterine and vaginal bleeding, unspecified Status: Acute Assessment and Plan: Reviewed ultrasound which shows possible neoplasm Biopsy as per gynecology recommendations Gynecology following Monitor H&H Plan Patient was a short of breath this morning. Patient was given nebulizer treatment Lasix and Bumex patient was put on BiPAP. Patient was not getting better and was transferred to ICU for further evaluation treatment Code status DNR Subjective Date/time seen: 06/30/25 09:10 Interval history: Patient was seen during the morning on today Patient was very short of breath. Rapid response was called. Patient was started BiPAP, Lasix and Bumex was given. Nebulizer treatment and steroids and oxygen was given. Patient was transferred to ICU for further evaluation and treatment. Review of Systems Review of Systems: All systems reviewed & are unremarkable except as noted in HPI and below Exam Narrative: General: Pleasant female, not in acute distress HEENT:? Pupils equal reactive, sclera is clear, moist oral mucosa Neck:? Supple Respiratory:? Coarse breath sounds bilaterally, decreased at bases, no wheezing Cardiac:? Is irregularly irregular, rate controlled/bradycardia sinus on telemetry Abdomen:? Soft, nontender, nondistended, protuberant, normoactive bowel sounds Extremities:? Extremities are warm, no cyanosis, no edema Neuro:? Patient is awake, alert, oriented, nonfocal, moving all extremities Skin:? No lesions noted Psych:? Normal mentation and affect Const: General: comfortable and no acute distress Other: A&O x4, obese HENMT: Mouth: Yes moist mucous membranes Eyes: General: appearance normal, both eyes and all related structures Sclera: sclerae normal Pupils: Equal, round and reactive pupils present Neck: Neck: supple Carotids: no bruits Resp: Effort & Inspection: normal respiratory effort Other: Diminished lung sounds, no wheezes present. Tachypneic initially, resolved Cardio: Rate: regular rate Rhythm: regular rhythm and abnormal rhythm Other: Tele: 61bpm GI: Inspection: non-distended Auscultation: normal bowel sounds : General: Yes bladder normal to palpation Bimanual exam- vagina & uterus: bladder normal to palpation Skin: General skin exam: normal color and no rashes or lesions noted Neuro: Cranial nerves: Yes Equal, round and reactive pupils present Motor exam (neuro): 5/5 motor strength present throughout and Normal motor muscle tone present throughout Sensory Exam: normal sensation Extrem: General: no edema Psych: Mental Status: mental status grossly normal Affect: normal affect Objective Data Vital Signs Vital Signs: Vital Signs - 24 hr 06/29/25 11:16 06/29/25 11:17 06/29/25 11:20 Temperature Pulse Rate 55 L 52 L 54 L Respiratory Rate Blood Pressure Pulse Oximetry 87 L 88 L 91 Oxygen Delivery Room Air Nasal Cannula Nasal Cannula Oxygen Flow Rate 1 2 Fraction of Inspired Oxygen 06/29/25 11:22 06/29/25 11:25 06/29/25 12:00 Temperature Pulse Rate 54 L 54 L 55 L Respiratory Rate Blood Pressure Pulse Oximetry 87 L 90 Oxygen Delivery Nasal Cannula Nasal Cannula Oxygen Flow Rate 2 3 Fraction of Inspired Oxygen 06/29/25 14:04 06/29/25 16:00 06/29/25 16:00 Temperature 36.7 C Pulse Rate 51 L 57 L 57 L Respiratory Rate 19 24 H Blood Pressure 156/45 H Pulse Oximetry 95 97 Oxygen Delivery CPAP Oxygen Flow Rate Fraction of Inspired Oxygen 06/29/25 20:00 06/29/25 20:48 06/29/25 23:00 Temperature 36.4 C L Pulse Rate 55 L 57 L Respiratory Rate 20 Blood Pressure 164/49 H Pulse Oximetry 90 96 Oxygen Delivery BiPAP Oxygen Flow Rate 3 Fraction of Inspired Oxygen 32 06/30/25 00:00 06/30/25 04:00 06/30/25 06:00 Temperature 36.8 C Pulse Rate 54 L 47 L 54 L Respiratory Rate 16 Blood Pressure 171/44 H Pulse Oximetry 93 Oxygen Delivery Oxygen Flow Rate Fraction of Inspired Oxygen 06/30/25 08:00 06/30/25 08:10 06/30/25 08:15 Temperature Pulse Rate 92 100 Respiratory Rate 24 H 32 H 37 H Blood Pressure Pulse Oximetry Oxygen Delivery CPAP BiPAP Oxygen Flow Rate Fraction of Inspired Oxygen 06/30/25 09:02 Temperature Pulse Rate 99 Respiratory Rate 27 H Blood Pressure Pulse Oximetry Oxygen Delivery Oxygen Flow Rate Fraction of Inspired Oxygen Intake/Output Intake/Output: Intake & Output 06/27/25 06/28/25 06/29/25 06/30/25 23:59 23:59 23:59 23:59 Intake Total 7639 452 4484 Output Total 2350 1700 1200 200 Balance -960 -900 170 -200 Meds/Results Medications: Active Medications Generic Name Dose Route Start Last Admin Trade Name Freq PRN Reason Stop Dose Admin Acetaminophen 1,000 mg 06/19/25 22:44 06/22/25 21:13 Acetaminophen 500 Mg Tablet PO 1,000 mg TID PRN Administration Mild Pain (1-3) or Fever Allopurinol 100 mg 06/23/25 09:00 06/29/25 08:33 Allopurinol 100 Mg Tablet PO 100 mg Q48HR DAVID Administration Apixaban 2.5 mg 06/23/25 21:00 06/25/25 09:16 Apixaban 2.5 Mg Tablet PO 2.5 mg On Hold: 06/25/25 17:59 Q12HR DAVID Administration Aspirin 81 mg 06/20/25 09:00 06/29/25 08:32 Aspirin 81 Mg Enteric Tablet PO 81 mg DAILY DAVID Administration Atorvastatin Calcium 80 mg 06/20/25 09:55 06/29/25 08:32 Atorvastatin 40 Mg Tablet PO 80 mg DAILY DAVID Administration Chlorthalidone 25 mg 06/27/25 10:10 06/29/25 08:33 Chlorthalidone 25 Mg Tablet PO 25 mg DAILY DAVID Administration Dextrose 12.5 gm 06/19/25 21:30 Dextrose 50% 25 Gm/50 Ml Syringe IV PUSH PRN PRN Hypoglycemia Protocol Fluticasone Propionate 1 spray 06/20/25 09:00 06/29/25 21:46 Fluticasone Propionate 0.05% Na Spr 16 Gm Btl (*Bkc) NASAL 1 spray Q12H ADVID Administration Fluticasone/Umeclidinium/Vilanterol 1 puff 06/20/25 09:00 06/30/25 08:35 Fluticasone/Umeclidin/Vilanter 100-62.5-25 Mcg Ellipta INHALATION Not Given Q24H DAVID Glucose 15 gm 06/19/25 21:30 Glucose Oral Gel 15 Gm Of Glucse In 37.5 Gm Tube PO PRN PRN Hypoglycemia Protocol Guaifenesin 1,200 mg 06/22/25 09:20 06/29/25 21:41 Guaifenesin 12 Hr 600 Mg Tabcr PO 1,200 mg Q12HR DAVID Administration Hydralazine HCl 100 mg 06/22/25 17:00 06/29/25 21:41 Hydralazine Hcl 50 Mg Tablet PO 100 mg QID DAVID Administration Dextrose 1,000 mls @ 100 mls/hr 06/19/25 21:30 Dextrose 5% 1,000 Ml IVPB PRN PRN Hypoglycemia Protocol Levofloxacin/Dextrose 750 mg in 150 mls @ 100 mls/hr 06/22/25 09:00 06/28/25 10:51 Levaquin 750 Mg/D5w 150 Ml IVPB Infused Q48HR DAVID Infusion Cefepime HCl 2 gm/ Sodium 50 mls @ 100 mls/hr 06/30/25 09:05 Chloride IVPB Q24H DAVID Insulin Aspart 2 - 5 units 06/20/25 08:00 06/29/25 18:09 Insulin Aspart (*Bkc) 100 Units/Ml SUB-Q 2 units TIDWM DAVID Administration Protocol Insulin Aspart 1 - 2 units 06/20/25 21:00 06/29/25 21:41 Insulin Aspart (*Bkc) 100 Units/Ml SUB-Q Not Given HS [facility] Protocol Isosorbide Mononitrate 60 mg 06/20/25 09:50 06/29/25 08:32 Isosorbide Mononitrate 60 Mg Tab.Er.24h PO 60 mg DAILY DAVID Administration Levalbuterol HCl 0.63 mg 06/21/25 19:41 06/30/25 08:00 Levalbuterol Neb 1.25 Mg/3 Ml INHALATION 0.63 mg Q6HRT PRN Administration shortness of breath Levothyroxine Sodium 100 mcg 06/21/25 06:30 06/30/25 06:45 Levothyroxine Sodium 100 Mcg Tablet PO 100 mcg DAILY@0630 [facility] Administration Losartan Potassium 100 mg 06/20/25 09:00 06/22/25 09:16 Losartan Potassium 100 Mg Tablet PO 100 mg On Hold: 06/22/25 15:20 DAILY DAVID Administration Nifedipine 30 mg 06/24/25 18:10 06/29/25 18:08 Nifedipine 30 Mg Tab.Er.24 PO 30 mg BID DAVID Administration Sotalol HCl 40 mg 06/21/25 09:00 06/29/25 08:32 Sotalol Hcl 40 Mg Tablet PO 40 mg DAILY DAVID Administration Vancomycin HCl 1 each 06/30/25 09:10 Vancomycin Pharmacist To Dose IVPB PER PROTOCOL [facility] Radiology Results: ITS Impressions Pulmonary Perfusion Imaging 06/21/25 11:25 IMPRESSION: No compelling or large segmental size areas of mismatch, and with right base findings on today's chest x-ray, the perfusion mismatch in the right base is of uncertain significance. Per PIOPED criteria, this is an indeterminate INTERMEDIATE probability for pulmonary embolus. Renal Ultrasound 06/21/25 13:56 IMPRESSION: 1. Normal kidneys without hydronephrosis. Chest CT 06/21/25 14:30 IMPRESSION: 1. Bibasilar consolidations likely associated with aspiration versus community- acquired pneumonia. Mucoid appearing changes in the bronchi endotracheal air column support aspiration. Findings should be followed radiographically until clear. 2. Other chronic appearing findings. Arterial/Peripheral Duplex 06/25/25 14:48 IMPRESSION: 1. No Doppler evidence of renal artery stenosis. Pelvic/Transvag US 06/26/25 14:16 Impression: Findings are concerning for endometrial neoplasm. Chest X-Ray 06/30/25 08:16 Impression: CHF. Superimposed pneumonia is suspected. The findings appear progressed compared to the previous exam Labs Labs: Laboratory Results - last 24 hr 06/29/25 06/29/25 06/29/25 11:11 15:57 21:40 WBC RBC Hgb Hct MCV MCH MCHC RDW Plt Count MPV Sodium Potassium Chloride Carbon Dioxide Anion Gap BUN Creatinine Estim Creat Clear Calc Estimated GFR Glucose POC Capillary Glucose 178 H 240 H 148 H Calcium Phosphorus Magnesium Total Bilirubin AST ALT Alkaline Phosphatase Total Protein Albumin 06/30/25 06/30/25 04:17 08:00 WBC 8.5 RBC 2.94 L Hgb 9.4 L Hct 29.4 L MCV 100.0 MCH 32.0 MCHC 32.0 RDW 14.4 Plt Count 172 MPV 11.7 H Sodium 133 L Potassium 4.1 Chloride 107 Carbon Dioxide 22 Anion Gap 4 BUN 86 H Creatinine 2.46 H Estim Creat Clear Calc 19 Estimated GFR 19 L Glucose 141 H POC Capillary Glucose 208 H Calcium 8.5 Phosphorus 4.3 Magnesium 2.6 H Total Bilirubin 0.5 AST 29 ALT 33 Alkaline Phosphatase 90 Total Protein 5.8 L Albumin 3.1 L Quality VTE Prophylaxis VTE prophylaxis: pharmacologic ordered (Heparin gtt)
[2025-06-30] MEDS: levoFLOXacin 750 MG/D5W 150 ML 750 MG/150 ML BAG 100 MG IVPB (09:15)
[2025-06-30] MEDS: INSULIN ASPART (*BKC) 100 UNITS/ML SUB-Q ×2 (09:18→13:17)
[2025-06-30] MEDS: CEFEPIME 2 GM in SODIUM CHLORIDE 0.9% IV 50 ML 100 ML IVPB (09:27)
[2025-06-30] MEDS: MORPHINE SULFATE (*CRX) 4 MG/ML INJ 2 MG IV PUSH ×4 (09:31→23:44)
[2025-06-30] MEDS: VANCOMYCIN 1,500 MG/NS 500 ML 1,500 MG/500 ML BAG 250 MG IVPB (10:35)
--- NOTE | 2025-06-30 11:05 | WPDCNINT ---
Assessment and Plan Assessment and plan (1) CHF (congestive heart failure): Qualifiers: Heart failure chronicity: unspecified Heart failure type: unspecified Qualified Code(s): I50.9 - Heart failure, unspecified Code(s): I50.9 - Heart failure, unspecified Status: Acute Assessment and Plan: 06/30: Transferred from medical floor with acute respiratory distress, likely related to CHF exacerbation, chest x-ray does show moderate pulmonary vascular congestion. Likely diastolic dysfunction as seen on echocardiogram is under -patient was given Lasix 60 mg IV x1 and received Bumex 1 mg early this morning -will continue Lasix 40 mg IV b.i.d. -admitted with AFib with RVR is controlled we will monitor. - Daily weights, strict intake/output. -Pt diagnosed with CHF December 2024 with no new meds. -06/21: V/Q scan showed intermediate probability for PE - patient may have HFpEF since she has diastolic dysfunction as seen on echocardiogram is under which could be related to her systemic hypertension and pulmonary hypertension 06/21/2025: Echocardiogram with bubble study Showed couple of bubbles in the left side after 4-5 seconds suggesting of either a tiny patent foramen ovale all more transpulmonary bubbles. 06/20/25: Echocardiogram Summary 1. Definity contrast administered improved wall motion interpretation. 2. Left ventricular chamber dimension is normal. 3. Left ventricular systolic function is normal, estimated at 65-70. 4. There is moderate concentric increased left ventricular wall thickness. 5. E/e' 48 is significantly elevated. 6. Left atrial chamber dimension is severely enlarged. 7. The mitral valve has moderately calcified leaflets and a moderately calcified annulus. 8. There is mild mitral valve regurgitation. 9. There is mild tricuspid valve regurgitation. 10. Severe pulmonary hypertension, estimated pulmonary arterial systolic pressure is 63 mmHg. 11. Dilated inferior vena cava with >50% collapse upon inspiration consistent with elevated right atrial pressure, 10 mmHg. (2) Atrial fibrillation with rapid ventricular response: Code(s): I48.91 - Unspecified atrial fibrillation Status: Acute Assessment and Plan: 06/19: ED EKG showed AFib with RVR rate 155, patient received Cardizem 15 mg IV x1, with subsequent rate control an EKG demonstrating AFib. Patient was started on sotalol initially b.i.d., patient was bradycardic so sotalol was decreased to q.day on 06/21 -she was on heparin infusion which was discontinued and patient was started on apixaban -cardiology following the patient 06/30 worsening respiratory status with increased oxygen requirements, likely related to CHF, pneumonia. Currently in sinus rhythm, rate controlled. Given a respiratory distress, patient is NPO, will hold apixaban and start her on Lovenox 90 mg subQ daily (discussed with Pharmacy) -TSH within normal limits, -magnesium and potassium levels within normal limits (3) DEBBIE (acute kidney injury): Code(s): N17.9 - Acute kidney failure, unspecified Status: Acute Assessment and Plan: Now that her AFib with RVR is controlled we will monitor. Daily weights, strict intake/output. -1L given in ED, pt with CHF hx (new December 2024) -DEBBIE on chronic kidney disease, could be related to elevated blood pressure, CHF, atrial fibrillation, 06/20: Creatinine baseline seems to be around 1.3-1.6, -creatinine gradually increased since being in the hospital, appreciate Nephrology evaluation, feels that this may be her new baseline -nephrology following -started patient on diuretics for CHF (4) Chronic kidney disease, stage 3b: Code(s): N18.32 - Chronic kidney disease, stage 3b Status: Acute Assessment and Plan: See above. (5) COPD (chronic obstructive pulmonary disease): Code(s): J44.9 - Chronic obstructive pulmonary disease, unspecified Status: Acute Assessment and Plan: COPD exacerbation, her symptoms could have been related to AFib and pulmonary vascular congestion. received Solu-Medrol with EMS. -06/30/2025: Patient brought to the ICU from medical flow with severe respiratory distress which could be related to congestive heart failure, pneumonia and/or COPD exacerbation. Bilateral wheezing, decreased air entry, patient was given diuretics, continuous albuterol nebulizer, started antibiotics given a chest x-ray findings -oxygen requirements have increased, -continue scheduled Solu-Medrol -will increase Xopenex -pulmonary has been following the patient -patient with HFpEF, possible COPD, possible PE as V/Q scan on 06/21 showed intermediate probability -continue anticoagulation -continue Trelegy per pulmonology (6) CAD (coronary artery disease): Qualifiers: Coronary Disease-Associated Artery/Lesion type: unspecified vessel or lesion type [place] vs. transplanted heart: unspecified whether elem or transplanted heart Associated angina: unspecified whether angina present Qualified Code(s): I25.10 - Atherosclerotic heart disease of elem coronary artery without angina pectoris Code(s): I25.10 - Atherosclerotic heart disease of elem coronary artery without angina pectoris Status: Acute Assessment and Plan: 06/20: S/p stents. Resume [employer] aspirin and atorvastatin. (7) Type 2 diabetes mellitus with diabetic chronic kidney disease: Code(s): E11.22 - Type 2 diabetes mellitus with diabetic chronic kidney disease Status: Acute Assessment and Plan: Sliding scale insulin q.6 hours (8) Hypertension: Qualifiers: Hypertension type: essential hypertension Qualified Code(s): I10 - Essential (primary) hypertension Code(s): I10 - Essential (primary) hypertension Status: Acute Assessment and Plan: -since patient is NPO Will hold home antihypertensives. -hydralazine high IV p.r.n. -Continue to monitor (9) Pulmonary hypertension: Code(s): I27.20 - Pulmonary hypertension, unspecified Status: Acute Assessment and Plan: Severe pulmonary hypertension as seen on echocardiogram with RVSP of 63 mmHg -pulmonology and cardiology following the patient Plan DVT prophylaxis: Lovenox 1 mg/kg q.day (discussed with pharmacy) Stress ulcer prophylaxis: Protonix Nutrition: NPO for now Code Status: DNR/DNI Called and left a message for Ivone, patient's daughter Due to a high probability of clinically significant, life threatening deterioration, the patient required my highest level of preparedness to intervene emergently and I personally spent this critical care time directly and personally managing the patient. This critical care time included obtaining a history; examining the patient; pulse oximetry; ordering and review of studies; arranging urgent treatment with development of a management plan; evaluation of patient's response to treatment; frequent reassessment; and discussions with other providers. It was exclusive of separately billable procedures and treating other patients and teaching time. Please see Assessment and Plan section and the rest of the note for further information on patient assessment and treatment This dictation may have been done utilizing a voice recognition system. Attempts have been made to correct errors. However, there may be uncorrected grammatical, spelling, and recognitions errors present. [employer] Consult Note Consult date: 06/30/25 Reason for consult: Acute respiratory failure, COPD exacerbation, CHF, acute kidney injury, AFib RVR on sotalol HPI: Vashti Littlejohn is a 75 year old female with significant past medical history of chronic kidney disease stage III: Osteoarthritis, COPD, CHF, AFib RVR, essential hypertension, CAD, hypothyroidism, gout, type 2 diabetes, hyperlipidemia presented the ED on 06/19/2025 with complains of shortness of breath and palpitations. She was recently discharged from [facility] for CHF exacerbation. Her EKG in the ER showed AFib RVR with rates of 155. Patient was evaluated by Cardiology and started on sotalol 40 mg b.i.d. after which she became bradycardic, which was decreased to 5 sotalol 40 mg q.day. pulmonary was consulted. V/Q scan showed no large subsegmental areas of perfusion mismatch, overall intermediate steady and no evidence of chronic thromboembolic disease. CT scan of the chest showed bibasilar dependent consolidations with some endobronchial mucous changes consistent with atelectasis and/or pneumonia. Central lobar emphysema. Echocardiogram with bubble study demonstrated a couple of bubbles in the left side after 4-5 seconds suggesting of either a tiny patent foramen ovale all more transpulmonary bubbles. Patient had been on BiPAP/AVAPS at 80% FiO2, was switched to 10 L nasal cannula. Patient had been ambulating in the room, had been on 8 L oxygen which was later decreased to 3 L oxygen with sats in the low 90s. Patient has been wearing her CPAP 12 with 6 L bleed. On 06/30/2025: I was called at bedside in room 251 evaluate the patient for severe respiratory distress. Patient had diffuse wheezing, coarse breath sounds bilaterally. Chest x-ray showed moderate pulmonary vascular congestion, superimposed pneumonia. Patient was given Lasix 60 mg IV x1, Solu-Medrol 125 mg IV x1, placed on AVAPS, initially was on 100% FiO2 and brought to the ICU for further management. Patient is a DNR/DNI. Pt with the respiratory distress, able ABGs done on the floor had pH of 7.13, pCO2 58 and PO2 of 58. Patient does complain of shortness of breath but denies any chest pain, abdominal pain, nausea vomiting. Hemodynamically stable. Mayer catheter was inserted, good urine output in response to diuretics. Restarted on Solu-Medrol due to significant wheezing, was given a continuous albuterol nebulizer. Review of Systems Review of Systems: All systems reviewed & are unremarkable except as noted in HPI and below PMFSH Past Medical History Medical History Chronic kidney disease, stage 3a Screening for breast cancer Fluid in knee Osteoarthritis of left knee Hemoglobin A1c less than 7.0% 08/29/20 A1c 5.9 Joint effusion of knee Left knee pain Pulmonary nodule Eczema Urine test positive for microalbuminuria Hyperkalemia Allergies Leukocytosis Complications of gastric bypass surgery 1994 Cholecystectomy planned Bradycardia Hypertension CAD (coronary artery disease) Hypothyroidism Gout Sleep apnea Chicken pox Migraine Type 2 diabetes mellitus Bulging disc Osteoarthritis Hernia Heart disease Hyperlipidemia Myocardial infarction COPD (chronic obstructive pulmonary disease) Family History Family History Mother Family history of renal failure Diabetes mellitus Hypertension Sibling Heart disease Diabetes mellitus Father Diabetes mellitus Hypertension Other Family history of coronary artery disease Family history of obesity Social History Social History Smoking status: Former smoker Tobacco type: cigarettes Smoking end date: 08/04/17 Alcohol intake: never Substance use: current Substance use type: marijuana Lack of Transportation: No Lack of Food: Sometimes True Current Housing: I Have Housing Concerned About Future Housing: No Difficulty Paying Gas/Electric Bills: No Difficulty Paying for Meds: No Currently Unemployed: No Education: Grade School Difficulty w/ Childcare or Family Care: No Gender identity (if verbalized by the patient): Female Spiritual care concerns: No Meds Home Medications and Allergies Home Medications ?Medication ?Instructions ?Recorded ?Confirmed ?Type aspirin 81 mg tablet,delayed 81 mg PO DAILY 07/29/19 06/20/25 History release (Adult Low Dose Aspirin) dapagliflozin propanediol 10 mg 10 mg PO DAILY 12/02/23 06/20/25 History tablet (Farxiga) losartan 100 mg tablet 100 mg PO DAILY #30 tabs 01/17/25 06/20/25 Rx fluticasone propionate 50 1 spray intranasal Q12H #48 grams 02/25/25 06/20/25 Rx mcg/actuation nasal spray,suspension (Flonase Allergy Relief) hydrochlorothiazide 12.5 mg tablet See Rx Instructions .Route 02/25/25 06/20/25 Rx .COMPLEX #180 tabs amlodipine 10 mg tablet See Rx Instructions .Route 03/14/25 06/20/25 Rx .COMPLEX #90 tabs atorvastatin 80 mg tablet See Rx Instructions .Route 03/14/25 06/20/25 Rx .COMPLEX #90 tabs isosorbide mononitrate 60 mg See Rx Instructions .Route 03/14/25 06/20/25 Rx tablet,extended release 24 hr .COMPLEX #90 tabs levothyroxine 100 mcg tablet See Rx Instructions .Route 03/14/25 06/20/25 Rx .COMPLEX #90 tabs allopurinol 100 mg tablet 100 mg PO TID #270 tabs 04/18/25 06/20/25 Rx albuterol sulfate 90 mcg/actuation See Rx Instructions .Route 05/02/25 06/20/25 Rx aerosol inhaler .COMPLEX #42.5 grams hydralazine 50 mg tablet 50 mg PO TID #270 tabs 05/02/25 06/20/25 Rx metformin 1,000 mg tablet 1,000 mg PO DAILY #90 tabs 05/26/25 06/20/25 Rx fluticasone fur. 100 mcg-umeclid 1 inh inhalation Q24H #60 ea 05/27/25 06/20/25 Rx 62.5 mcg-vilant 25 mcg inhalat.powder (Trelegy Ellipta) Allergies Allergy/AdvReac Type Severity Reaction Status Date / Time naproxen AdvReac Itching Verified 06/20/25 12:51 Vital Signs Vital Signs - 24 hr 06/29/25 11:16 06/29/25 11:17 06/29/25 11:20 Temperature Pulse Rate 55 L 52 L 54 L Respiratory Rate Blood Pressure Pulse Oximetry 87 L 88 L 91 Oxygen Delivery Room Air Nasal Cannula Nasal Cannula Oxygen Flow Rate 1 2 Fraction of Inspired Oxygen 06/29/25 11:22 06/29/25 11:25 06/29/25 12:00 Temperature Pulse Rate 54 L 54 L 55 L Respiratory Rate Blood Pressure Pulse Oximetry 87 L 90 Oxygen Delivery Nasal Cannula Nasal Cannula Oxygen Flow Rate 2 3 Fraction of Inspired Oxygen 06/29/25 14:04 06/29/25 16:00 06/29/25 16:00 Temperature 98.1 F Pulse Rate 51 L 57 L 57 L Respiratory Rate 19 24 H Blood Pressure 156/45 H Pulse Oximetry 95 97 Oxygen Delivery CPAP Oxygen Flow Rate Fraction of Inspired Oxygen 06/29/25 20:00 06/29/25 20:48 06/29/25 23:00 Temperature 97.5 F L Pulse Rate 55 L 57 L Respiratory Rate 20 Blood Pressure 164/49 H Pulse Oximetry 90 96 Oxygen Delivery BiPAP Oxygen Flow Rate 3 Fraction of Inspired Oxygen 32 06/30/25 00:00 06/30/25 04:00 06/30/25 06:00 Temperature 98.2 F Pulse Rate 54 L 47 L 54 L Respiratory Rate 16 Blood Pressure 171/44 H Pulse Oximetry 93 Oxygen Delivery Oxygen Flow Rate Fraction of Inspired Oxygen 06/30/25 08:00 06/30/25 08:00 06/30/25 08:10 Temperature Pulse Rate 92 100 Respiratory Rate 24 H 32 H Blood Pressure Pulse Oximetry Oxygen Delivery BiPAP CPAP Oxygen Flow Rate Fraction of Inspired Oxygen 100 06/30/25 08:15 06/30/25 08:47 06/30/25 09:02 Temperature Pulse Rate 104 H 101 H 99 Respiratory Rate 37 H 39 H 27 H Blood Pressure Pulse Oximetry 88 L 90 Oxygen Delivery BiPAP Oxygen Flow Rate Fraction of Inspired Oxygen 06/30/25 10:09 Temperature Pulse Rate 91 Respiratory Rate 29 H Blood Pressure Pulse Oximetry Oxygen Delivery Oxygen Flow Rate Fraction of Inspired Oxygen Exam Narrative: General: Elderly female, in respiratory distress, on BiPAP/AVAPS HEENT:? Pupils equal reactive, sclera is clear, Neck:? Supple Respiratory:? Coarse breath sounds bilaterally, diffuse wheezing, decreased air entry Cardiac:? Sinus rhythm, rate controlled Abdomen:? Soft, nontender, nondistended, obese, normoactive bowel sounds Extremities:? Extremities are warm, no cyanosis, pitting edema bilaterally Neuro:? Patient is awake, alert, in respiratory distress but able to follow simple commands and answers to questions Skin:? No lesions noted Psych:? Anxious Results Labs 06/30/25 04:17 06/30/25 04:17 Labs: Short CBC 06/30/25 Range/Units 04:17 WBC 8.5 (4.5-10.0) K/mm3 Hgb 9.4 L (12.0-15.0) g/dL Hct 29.4 L (37.0-47.0) % Plt Count 172 (150-375) k/mm3 [facility] 06/30/25 04:17 Sodium 133 L Potassium 4.1 Chloride 107 Carbon Dioxide 22 BUN 86 H Creatinine 2.46 H Glucose 141 H Calcium 8.5 Liver Function 06/30/25 Range/Units 04:17 Total Bilirubin 0.5 (0.2-1.3) mg/dL AST 29 (14-36) U/L ALT 33 (6-35) U/L Alkaline Phosphatase 90 (38-126) U/L Albumin 3.1 L (3.5-5.1) g/dL Quality VTE Prophylaxis VTE prophylaxis: pharmacologic ordered (Heparin gtt)
[2025-06-30 11:45] LABS: Alveolar/Arterial O2 Gradient 523.6 mmHg; Fractional Inspired Oxygen 90 %; HCO3 ABG 20.8 mEq/l (22.0-26.0); Oxygen Content ABG 16.2 %vol (16.0-22.0); Oxygen Saturation ABG 90.3 % (95.0-100.0); PCO2 ABG 49.1 mmHg (35.0-45.0); PO2 ABG 67.8 mmHg (80.0-100.0); PO2 FiO2 Ratio Arterial Blood 0.75 %
[2025-06-30 11:49] LABS: Modified Allen's Test Pass; Site Drawn RIGHT RADIAL
[2025-06-30 11:59] LABS: MRSA (PCR) NOT DETECTED (NOT DETECTE)
--- NOTE | 2025-06-30 12:55 | P.PNNP_ITS ---
Progress Note: A&P Assessment and Plan (1) Acute kidney injury: Code(s): N17.9 - Acute kidney failure, unspecified Status: Acute Assessment and Plan: * baseline creatinine runs in the 1.3-1.6 range as of a couple of months ago. * as noted on admission, creatinine was 2.26mg/dL * after admission, it came down a little bit but then it has been fluctuating since... * several issues playing a role: * CHF exacerbation * Afib with RVR * COPD/DENNIS/OHS * hypoxia(?) * ongoing need for diuresis * ARB + HCTZ use prior to admission * other(?) * evaluation to date noted: * renal ultrasound w/o obstruction * urine electrolytes non-prerenal * urine eosinophils negative * noted proteinuria * CPK normal * suspect she has a new baseline creatinine: * she needs to continue diuretics to keep out of heart failure and this likely keep the creatinine elevated to some degree * follow trend of repeat labs and UOP (2) Stage 3b chronic kidney disease: Code(s): N18.32 - Chronic kidney disease, stage 3b Status: Chronic Assessment and Plan: * baseline creatinine seems to run ~ 1.3 - 1.7mg/dl * however, has been as high as 2.0mg/dl * this causes her to fluctuate between CKD state 3b and stage 4 * secondary to hypertension, diabetes vascular disease (CAD + hyperlipidemia), COPD/DENNIS, and age-related change * however, suspect likely new baseline creatinine (see #1) * follows with Jennifer Chairez NP/Dr. Young for CKD management (3) CHF (congestive heart failure): Qualifiers: Heart failure chronicity: unspecified Heart failure type: unspecified Qualified Code(s): I50.9 - Heart failure, unspecified Code(s): I50.9 - Heart failure, unspecified Status: Acute Assessment and Plan: * worsening as evidenced by events earlier this morning (on 06/30) * severe respiratory distress * CXR with moderate pulmonary vascular congestion * Echo results (06/20 and 06/21) noted: * left ventricular systolic function is normal, estimated at 65 - 70% * mitral valve has moderately calcified leaflets and a moderately calcified annulus * mild mitral valve regurgitation * mild tricuspid valve regurgitation * severe pulmonary hypertension, estimated pulmonary arterial systolic pressure is 63 mmHg * couple of bubbles in the left side after 4-5 seconds suggesting of either a tiny patent foramen ovale all more transpulmonary bubbles * restarted on IV lasix * follow I/Os, daily weights, and respiratory status (4) COPD (chronic obstructive pulmonary disease): Code(s): J44.9 - Chronic obstructive pulmonary disease, unspecified Status: Acute Assessment and Plan: * likely playing a role with worsening respiratory status as noted today (on 06/30) * bilateral wheezing noted * increased oxygen requirement * complicated by CHF +/- pneumonia * started on scheduled steroids * continue nebulizer treatments * continue inhalers * Pulmonary was following (5) Atrial fibrillation with rapid ventricular response: Code(s): I48.91 - Unspecified atrial fibrillation Status: Acute Assessment and Plan: * admission EKG showed AFib with RVR rate 155 * acheived rate control with IV Cardiazem * was on apixaban -- transitioned to lovenox * on sotalol * Cardiology following (6) Pulmonary hypertension: Code(s): I27.20 - Pulmonary hypertension, unspecified Status: Acute Assessment and Plan: * as seen on echocardiogram with RVSP of 63 mmHg * Pulmonology and Cardiology following (7) Hypertension: Qualifiers: Hypertension type: essential hypertension Qualified Code(s): I10 - Essential (primary) hypertension Code(s): I10 - Essential (primary) hypertension Status: Acute Assessment and Plan: * medications changes noted * off ARB due to #1 * titrated hydralazine dose * added nifedipine XL bid * recent addition of chlorthalidone as well * follow trend since currently NPO * use PRN IV medications for now (8) Type 2 diabetes mellitus with diabetic chronic kidney disease: Code(s): E11.22 - Type 2 diabetes mellitus with diabetic chronic kidney disease Status: Acute Assessment and Plan: * follow accu-cheks * glycemic control per hospitalist Discussed case with Dr. Pinzon...DNR/DNI code status and patient has made remarks that she is getting tired with all her recent acute on chronic medical issues and recent hospitalizations...called placed to daughter to hopefully assist in plan of care as well as goals of therapy Will continue to follow. L Subjective Date/time seen: 06/30/25 12:55 Interval history: Follow-up for acute kidney injury/acute renal failure on chronic kidney disease. Chart reviewed since last seen -- severe respiratory distress/shortness of breath earlier this AM in association with diffuse wheezing and coarse breath sounds; received IV diuretics, nebulizer treatment, and IV steroids with subsequent transfer to the ICU for further management; appears to be doing better at the time of my visit (on BiPAP therapy). Exam 2 Narrative: General: elderly but WD/WN female in NAD Heart: IRRR, normal S1 and S2; no rub Lungs: diminished with coarse breath sounds and scattered wheezing Abdomen: soft, nontender, nondistended, positive bowel sounds Extremities: no cyanosis or clubbing; 1+ edema Skin: warm and dry Objective Data Vital Signs Vital Signs: Vital Signs Temp Pulse Resp BP Pulse Ox O2 Del Method O2 Flow Rate 06/30/25 12:05 83 34 H 91 06/30/25 12:00 90 BiPAP 06/30/25 12:00 83 06/30/25 11:08 89 90 06/30/25 10:09 91 29 H 06/30/25 09:02 99 27 H 06/30/25 08:47 101 H 39 H 90 06/30/25 08:15 104 H 37 H 88 L BiPAP 06/30/25 08:10 100 32 H CPAP 06/30/25 08:00 94 06/30/25 08:00 BiPAP 06/30/25 08:00 92 24 H 06/30/25 06:00 98.2 F 54 L 16 171/44 H 93 06/30/25 04:00 47 L 06/30/25 00:00 54 L 06/29/25 23:00 96 BiPAP 3 06/29/25 20:48 97.5 F L 57 L 20 164/49 H 90 06/29/25 20:00 55 L 06/29/25 16:00 57 L 06/29/25 16:00 98.1 F 57 L 24 H 156/45 H 97 Intake/Output Intake/Output: Intake & Output 06/27/25 06/28/25 06/29/25 06/30/25 23:59 23:59 23:59 23:59 Intake Total 6924 422 3286 Output Total 2350 1700 1200 200 Balance -960 -900 170 -200 Meds/Results Medications: Active Medications Generic Name Dose Route Start Last Admin Trade Name Freq PRN Reason Stop Dose Admin Acetaminophen 1,000 mg 06/19/25 22:44 06/22/25 21:13 Acetaminophen 500 Mg Tablet PO 1,000 mg TID PRN Administration Mild Pain (1-3) or Fever Allopurinol 100 mg 06/23/25 09:00 06/29/25 08:33 Allopurinol 100 Mg Tablet PO 100 mg Q48HR DAVID Administration Apixaban 2.5 mg 06/23/25 21:00 06/25/25 09:16 Apixaban 2.5 Mg Tablet PO 2.5 mg Q12HR DAVID Administration Aspirin 81 mg 06/20/25 09:00 06/30/25 09:42 Aspirin 81 Mg Enteric Tablet PO Not Given DAILY DAVID Atorvastatin Calcium 80 mg 06/20/25 09:55 06/30/25 09:42 Atorvastatin 40 Mg Tablet PO Not Given DAILY DAVID Chlorthalidone 25 mg 06/27/25 10:10 06/30/25 09:42 Chlorthalidone 25 Mg Tablet PO Not Given DAILY [facility] Dextrose 12.5 gm 06/19/25 21:30 Dextrose 50% 25 Gm/50 Ml Syringe IV PUSH PRN PRN Hypoglycemia Protocol Enoxaparin Sodium 90 mg 06/30/25 11:35 06/30/25 13:15 Enoxaparin 100 Mg/Ml Syringe SUB-Q 90 mg QAM DAVID Administration Fluticasone Propionate 1 spray 06/20/25 09:00 06/30/25 09:42 Fluticasone Propionate 0.05% Na Spr 16 Gm Btl (*Bkc) NASAL Not Given Q12H [facility] Fluticasone/Umeclidinium/Vilanterol 1 puff 06/20/25 09:00 06/30/25 08:35 Fluticasone/Umeclidin/Vilanter 100-62.5-25 Mcg Ellipta INHALATION Not Given Q24H [facility] Furosemide 40 mg 06/30/25 17:00 Furosemide Inj 40 Mg/4 Ml Vial IV PUSH BID DAVID Glucose 15 gm 06/19/25 21:30 Glucose Oral Gel 15 Gm Of Glucse In 37.5 Gm Tube PO PRN PRN Hypoglycemia Protocol Guaifenesin 1,200 mg 06/22/25 09:20 06/30/25 09:42 Guaifenesin 12 Hr 600 Mg Tabcr PO Not Given Q12HR [facility] Hydralazine HCl 100 mg 06/22/25 17:00 06/30/25 14:44 Hydralazine Hcl 50 Mg Tablet PO Not Given QID DAVID Hydralazine HCl 10 mg 06/30/25 10:18 06/30/25 10:43 Hydralazine Hcl 20 Mg/Ml Vial IV PUSH 10 mg Q4H PRN Administration Blood Pressure - High Dextrose 1,000 mls @ 100 mls/hr 06/19/25 21:30 Dextrose 5% 1,000 Ml IVPB PRN PRN Hypoglycemia Protocol Cefepime HCl 2 gm/ Sodium 50 mls @ 100 mls/hr 06/30/25 09:00 06/30/25 09:27 Chloride IVPB 100 mls/hr Q24H DAVID Administration Insulin Aspart 1 - 2 units 06/20/25 21:00 06/29/25 21:41 Insulin Aspart (*Bkc) 100 Units/Ml SUB-Q Not Given HS DAVID Protocol Insulin Aspart 2 - 5 units 06/30/25 10:20 06/30/25 13:17 Insulin Aspart (*Bkc) 100 Units/Ml SUB-Q 2 units Q6HR DAVID Administration Protocol Isosorbide Mononitrate 60 mg 06/20/25 09:50 06/30/25 13:13 Isosorbide Mononitrate 60 Mg Tab.Er.24h PO Not Given DAILY DAVID Levalbuterol HCl 1.25 mg 06/30/25 14:00 06/30/25 14:53 Levalbuterol Neb 1.25 Mg/3 Ml INHALATION 1.25 mg Q6HRT DAVID Administration Levothyroxine Sodium 100 mcg 06/21/25 06:30 06/30/25 06:45 Levothyroxine Sodium 100 Mcg Tablet PO 100 mcg DAILY@0630 DAVID Administration Levothyroxine Sodium 50 mcg 07/01/25 06:30 Levothyroxine Sodium Inj 100 Mcg/5 Ml Vial IV PUSH DAILY@0630 DAVID Losartan Potassium 100 mg 06/20/25 09:00 06/22/25 09:16 Losartan Potassium 100 Mg Tablet PO 100 mg DAILY DAVID Administration Methylprednisolone Sodium Succinate 40 mg 06/30/25 12:00 06/30/25 13:17 Methylprednisolone Sod Succ 40 Mg Vial IV PUSH 40 mg Q6HR DAVID Administration Nifedipine 30 mg 06/24/25 18:10 06/30/25 14:44 Nifedipine 30 Mg Tab.Er.24 PO Not Given BID DAVID Pantoprazole Sodium 40 mg 07/01/25 09:00 Pantoprazole Sodium Iv 40 Mg Vial IV PUSH QAM DAVID Sotalol HCl 40 mg 06/21/25 09:00 06/30/25 13:13 Sotalol Hcl 40 Mg Tablet PO Not Given DAILY DAVID Vancomycin HCl 1 each 06/30/25 09:24 Vancomycin For Acute Kidney Injury IVPB PRN PRN Vancomycin Protocol Radiology Results: ITS Impressions Pulmonary Perfusion Imaging 06/21/25 11:25 IMPRESSION: No compelling or large segmental size areas of mismatch, and with right base findings on today's chest x-ray, the perfusion mismatch in the right base is of uncertain significance. Per PIOPED criteria, this is an indeterminate INTERMEDIATE probability for pulmonary embolus. Renal Ultrasound 06/21/25 13:56 IMPRESSION: 1. Normal kidneys without hydronephrosis. Chest CT 06/21/25 14:30 IMPRESSION: 1. Bibasilar consolidations likely associated with aspiration versus community- acquired pneumonia. Mucoid appearing changes in the bronchi endotracheal air column support aspiration. Findings should be followed radiographically until clear. 2. Other chronic appearing findings. Arterial/Peripheral Duplex 06/25/25 14:48 IMPRESSION: 1. No Doppler evidence of renal artery stenosis. Pelvic/Transvag US 06/26/25 14:16 Impression: Findings are concerning for endometrial neoplasm. Chest X-Ray 06/30/25 08:16 Impression: CHF. Superimposed pneumonia is suspected. The findings appear progressed compared to the previous exam Labs Labs: Laboratory Tests 06/30/25 04:17 06/30/25 04:17 Calcium 8.5 Phosphorus 4.3 Magnesium 2.6 H Total Bilirubin 0.5 AST 29 ALT 33 Alkaline Phosphatase 90 Total Protein 5.8 L Albumin 3.1 L
[2025-06-30 13:03] LABS: HCO3 ABG 21.1 mEq/l (22.0-26.0); PCO2 ABG 58.9 mmHg (35.0-45.0); PO2 ABG 58.7 mmHg (80.0-100.0)
[2025-06-30 13:04] LABS: Oxygen Saturation ABG 82.7 % (95.0-100.0)
[2025-06-30 13:05] LABS: Alveolar/Arterial O2 Gradient 595.4 mmHg
[2025-06-30 13:06] LABS: Oxygen Content ABG 15.3 %vol (16.0-22.0)
[2025-06-30 13:07] LABS: Fractional Inspired Oxygen 100 %; PO2 FiO2 Ratio Arterial Blood 0.59 %; Site Drawn RIGHT RADIAL
[2025-06-30 13:08] LABS: Liters per Minute 0.0 LPM; Modified Allen's Test Pass
[2025-06-30 13:12] LABS: Non-Invasive Vent Rate 14 /MIN
[2025-06-30 13:13] LABS: Non-Invasive Expiratory Pressure 8 CMH2O; Non-Invasive Inspiratory Pressure 14 CMH2O
[2025-06-30] MEDS: ENOXAPARIN 100 MG/ML SYRINGE 90 MG SUB-Q (13:15)
[2025-06-30] MEDS: PANTOPRAZOLE SODIUM IV 40 MG VIAL IV PUSH (13:16)
[2025-06-30] MEDS: MORPHINE SULFATE (*CRX) 4 MG/ML INJ 5 MG IV PUSH (16:13)
[2025-06-30] MEDS: diazePAM INJ (*CRX) 10 MG/2 ML SYRINGE 5 MG IV PUSH ×4 (16:13→23:01)
--- NOTE | 2025-06-30 17:47 | PC.NURSE ---
Report given to BRITTNEE Zheng @ 1745. Pt to room 255 via bed. All personal belongings and documentation sent with patient.
--- NOTE | 2025-06-30 22:36 | PC.NURSE ---
CPAP at bedside ONLY TO BE USED IF PATIENT REQUESTS TO WEAR FOR COMFORT, if patient becomes unresponsive at any point then CPAP will be taken off and only supplemental nasal canula and medication will be given for any observed respiratory discomfort.
--- NOTE | 2025-07-01 00:19 | PCRCNOTE ---
Addendum entered by Kartik Powell, PRINCIPAL BIOINFORMATICS SPECIALIST 07/01/25 02:21: No respiratory distress, air hunger or discomfort observed at time of placement. Original Note: Patient had been refractory to BiPAP therapy with high FiO2 in ICU continuing in respiratory failure; discussion was then had with patient and family resulting in Comfort Care measures being implemented; RN called RT to start CPAP therapy; RT explained that this therapy is discontinued (which it was) when comfort care is chosen, it most likely will prolong life and that air hunger is treated with Morphine, not CPAP; RN stated that giving more Morphine would be killing the patient in front of the family. RN called provider and had CPAP ordered. Patient saturation 77% and transitioned from 4L nasal cannula to Auto-pap, CPAP therapy. RT consulted RT Screen Printing Paster, Grinder Needle Tip and night provider ([employer] OPERATOR).
[2025-07-01] MEDS: diazePAM INJ (*CRX) 10 MG/2 ML SYRINGE 5 MG IV PUSH ×4 (01:08→15:38)
[2025-07-01] MEDS: MORPHINE SULFATE (*CRX) 4 MG/ML INJ 2 MG IV PUSH (02:53)
[2025-07-01] MEDS: WATER FOR IRRIGATION, STERILE 1,000 ML BOTTLE 1000 ML (04:01)
[2025-07-01 04:03] VITALS: O2SAT 58
[2025-07-01] MEDS: HYDROmorphone HCL INJ (*CRX) 1 MG/ML SYR IV PUSH ×2 (05:07→12:32)
[2025-07-01 08:00] VITALS: O2SAT 85
[2025-07-01 09:01] VITALS: BP 151/66; PULSE 68; RESP 21; TEMP 36.3; O2SAT 85
--- NOTE | 2025-07-01 09:48 | PM.IMPN ---
Progress Note: A&P Assessment and Plan (1) CHF (congestive heart failure): Qualifiers: Heart failure chronicity: unspecified Heart failure type: unspecified Qualified Code(s): I50.9 - Heart failure, unspecified Code(s): I50.9 - Heart failure, unspecified Status: Acute Assessment and Plan: 06/30: Transferred from medical floor with acute respiratory distress, likely related to CHF exacerbation, chest x-ray does show moderate pulmonary vascular congestion. Likely diastolic dysfunction as seen on echocardiogram is under -patient was given Lasix 60 mg IV x1 and received Bumex 1 mg early this morning -will continue Lasix 40 mg IV b.i.d. 07/01/2025 patient is feeling slightly better today. Patient was transferred out of ICU. Will continue current treatment monitor closely. Family thinking about hospice care. (2) Atrial fibrillation with rapid ventricular response: Code(s): I48.91 - Unspecified atrial fibrillation Status: Acute Assessment and Plan: 06/19: ED EKG showed AFib with RVR rate 155, patient received Cardizem 15 mg IV x1, with subsequent rate control an EKG demonstrating AFib. Patient was started on sotalol initially b.i.d., patient was bradycardic so sotalol was decreased to q.day on 06/21 -she was on heparin infusion which was discontinued and patient was started on apixaban -cardiology following the patient 06/30 worsening respiratory status with increased oxygen requirements, likely related to CHF, pneumonia. Currently in sinus rhythm, rate controlled. Given a respiratory distress, patient is NPO, will hold apixaban and start her on Lovenox 90 mg subQ daily (discussed with Pharmacy) -TSH within normal limits, -magnesium and potassium levels within normal limits 07/01/2025 patient heart rate is under control. Will continue with current treatment and monitor closely. (3) DEBBIE (acute kidney injury): Code(s): N17.9 - Acute kidney failure, unspecified Status: Acute Assessment and Plan: Now that her AFib with RVR is controlled we will monitor. Daily weights, strict intake/output. -1L given in ED, pt with CHF hx (new December 2024) -DEBBIE on chronic kidney disease, could be related to elevated blood pressure, CHF, atrial fibrillation, 06/20: Creatinine baseline seems to be around 1.3-1.6, -creatinine gradually increased since being in the hospital, appreciate Nephrology evaluation, feels that this may be her new baseline -nephrology following -started patient on diuretics for CHF (4) Chronic kidney disease, stage 3b: Code(s): N18.32 - Chronic kidney disease, stage 3b Status: Acute Assessment and Plan: See above. (5) COPD (chronic obstructive pulmonary disease): Code(s): J44.9 - Chronic obstructive pulmonary disease, unspecified Status: Acute Assessment and Plan: COPD exacerbation, her symptoms could have been related to AFib and pulmonary vascular congestion. received Solu-Medrol with EMS. -06/30/2025: Patient brought to the ICU from medical flow with severe respiratory distress which could be related to congestive heart failure, pneumonia and/or COPD exacerbation. Bilateral wheezing, decreased air entry, patient was given diuretics, continuous albuterol nebulizer, started antibiotics given a chest x-ray findings -oxygen requirements have increased, -continue scheduled Solu-Medrol -will increase Xopenex -pulmonary has been following the patient -patient with HFpEF, possible COPD, possible PE as V/Q scan on 06/21 showed intermediate probability -continue anticoagulation -continue Trelegy per pulmonology (6) CAD (coronary artery disease): Qualifiers: Coronary Disease-Associated Artery/Lesion type: unspecified vessel or lesion type [place] vs. transplanted heart: unspecified whether [place] or transplanted heart Associated angina: unspecified whether angina present Qualified Code(s): I25.10 - Atherosclerotic heart disease of [place] coronary artery without angina pectoris Code(s): I25.10 - Atherosclerotic heart disease of [place] coronary artery without angina pectoris Status: Acute Assessment and Plan: 07/01 : S/p stents. Resume R[place] P[employer]ER aspirin and atorvastatin. (7) Type 2 diabetes mellitus with diabetic chronic kidney disease: Code(s): E11.22 - Type 2 diabetes mellitus with diabetic chronic kidney disease Status: Acute Assessment and Plan: Sliding scale insulin q.6 hours (8) Hypertension: Qualifiers: Hypertension type: essential hypertension Qualified Code(s): I10 - Essential (primary) hypertension Code(s): I10 - Essential (primary) hypertension Status: Acute Assessment and Plan: Stable on current medication, continue Cartia. (9) Pulmonary hypertension: Code(s): I27.20 - Pulmonary hypertension, unspecified Status: Acute Assessment and Plan: Severe pulmonary hypertension as seen on echocardiogram with RVSP of 63 mmHg -pulmonology and cardiology following the patient Plan DVT prophylaxis: Eliquis Stress ulcer prophylaxis: Protonix Nutrition: NPO for now Code Status: DNR/DNI Subjective Date/time seen: 07/01/25 09:48 Interval history: Patient was seen during the morning rounds today. Feeling slightly better. Mild shortness of breath. No chest pain. Review of Systems Review of Systems: All systems reviewed & are unremarkable except as noted in HPI and below Exam Narrative: General: Elderly female, in respiratory distress, on BiPAP/AVAPS HEENT:? Pupils equal reactive, sclera is clear, Neck:? Supple Respiratory:? Coarse breath sounds bilaterally, diffuse wheezing, decreased air entry Cardiac:? Sinus rhythm, rate controlled Abdomen:? Soft, nontender, nondistended, obese, normoactive bowel sounds Extremities:? Extremities are warm, no cyanosis, pitting edema bilaterally Neuro:? Patient is awake, alert, in respiratory distress but able to follow simple commands and answers to questions Skin:? No lesions noted Psych:? Anxious Const: General: comfortable and no acute distress Other: A&O x4, obese HENMT: Mouth: Yes moist mucous membranes Eyes: General: appearance normal, both eyes and all related structures Sclera: sclerae normal Pupils: Equal, round and reactive pupils present Neck: Neck: supple Carotids: no bruits Resp: Effort & Inspection: normal respiratory effort Other: Diminished lung sounds, no wheezes present. Tachypneic initially, resolved Cardio: Rate: regular rate Rhythm: regular rhythm and abnormal rhythm Other: Tele: 61bpm GI: Inspection: non-distended Auscultation: normal bowel sounds : General: Yes bladder normal to palpation Bimanual exam- vagina & uterus: bladder normal to palpation Skin: General skin exam: normal color and no rashes or lesions noted Neuro: Cranial nerves: Yes Equal, round and reactive pupils present Motor exam (neuro): 5/5 motor strength present throughout and Normal motor muscle tone present throughout Sensory Exam: normal sensation Extrem: General: no edema Psych: Mental Status: mental status grossly normal Affect: normal affect Objective Data Vital Signs Vital Signs: Vital Signs - 24 hr 06/30/25 10:09 06/30/25 11:08 06/30/25 12:00 Temperature Pulse Rate 91 89 83 Respiratory Rate 29 H Blood Pressure Pulse Oximetry 90 Oxygen Delivery Oxygen Flow Rate Fraction of Inspired Oxygen 06/30/25 12:00 06/30/25 12:05 06/30/25 13:00 Temperature 35.1 C L Pulse Rate 83 82 Respiratory Rate 34 H 32 H Blood Pressure 163/67 H Pulse Oximetry 90 91 92 Oxygen Delivery BiPAP Oxygen Flow Rate Fraction of Inspired Oxygen 90 06/30/25 14:00 06/30/25 14:53 06/30/25 14:57 Temperature 34.9 C L Pulse Rate 82 78 78 Respiratory Rate 29 H 31 H 34 H Blood Pressure 156/69 H Pulse Oximetry 94 93 Oxygen Delivery Oxygen Flow Rate Fraction of Inspired Oxygen 06/30/25 15:00 06/30/25 15:02 06/30/25 18:00 Temperature 35.1 C L Pulse Rate 78 77 66 Respiratory Rate 18 32 H Blood Pressure 164/71 H 126/46 L Pulse Oximetry 91 50 L Oxygen Delivery Oxygen Flow Rate Fraction of Inspired Oxygen 06/30/25 19:56 06/30/25 20:00 06/30/25 21:45 Temperature 36.0 C L Pulse Rate 65 Respiratory Rate 16 18 Blood Pressure 142/49 H Pulse Oximetry 70 L 77 L Oxygen Delivery Nasal Cannula Autopap Oxygen Flow Rate 3 Fraction of Inspired Oxygen 07/01/25 04:03 07/01/25 09:01 Temperature 36.3 C L Pulse Rate 68 Respiratory Rate 21 H Blood Pressure 151/66 H Pulse Oximetry 58 L 85 L Oxygen Delivery Oxygen Flow Rate Fraction of Inspired Oxygen Intake/Output Intake/Output: Intake & Output 06/28/25 06/29/25 06/30/25 07/01/25 23:59 23:59 23:59 23:59 Intake Total 800 1370 140 Output Total 1700 1200 2220 Balance -900 170 -2220 140 Meds/Results Medications: Active Medications Generic Name Dose Route Start Last Admin Trade Name Freq PRN Reason Stop Dose Admin Allopurinol 100 mg 07/02/25 08:00 Allopurinol 100 Mg Tablet PO DAILY@0800 [facility] Amlodipine Besylate 10 mg 07/02/25 09:00 Amlodipine Besylate 10 Mg Tablet PO DAILY [facility] Apixaban 2.5 mg 07/01/25 21:00 Apixaban 2.5 Mg Tablet PO Q12HR [facility] Aspirin 81 mg 07/02/25 09:00 Aspirin 81 Mg Enteric Tablet PO QAM [facility] Diazepam 5 mg 06/30/25 15:58 07/01/25 03:55 Diazepam Inj (*Crx) 10 Mg/2 Ml Syringe IV PUSH 5 mg Q2HR PRN Administration COMFORT Doxycycline Hyclate 100 mg 07/01/25 21:00 Doxycycline Hyclate 100 Mg Tablet PO Q12HR [facility] Fluticasone/Umeclidinium/Vilanterol 1 puff 07/02/25 08:00 Fluticasone/Umeclidin/Vilanter 200-62.5-25 Mcg Ellipta INHALATION DAILYRT [facility] Furosemide 40 mg 07/01/25 17:00 Furosemide 40 Mg Tablet PO BID DAVID Hydralazine HCl 25 mg 07/01/25 17:00 Hydralazine Hcl 25 Mg Tablet PO BID [facility] Hydromorphone HCl 1 mg 07/01/25 06:17 Hydromorphone Hcl Inj (*Crx) 1 Mg/Ml Syr IV PUSH Q3H PRN COMFORT Isosorbide Mononitrate 30 mg 07/02/25 09:00 Isosorbide Mononitrate 30 Mg Tab.Er.24h PO QAM [facility] Levalbuterol HCl 0.63 mg 07/01/25 14:00 Levalbuterol Neb 1.25 Mg/3 Ml INHALATION Q6HRT [facility] Levothyroxine Sodium 100 mcg 07/02/25 06:30 Levothyroxine Sodium 100 Mcg Tablet PO DAILY@0630 [facility] Pantoprazole Sodium 40 mg 07/02/25 09:00 Pantoprazole 40 Mg Tablet PO QAM [facility] Potassium Chloride 10 meq 07/02/25 08:00 Potassium Chloride 10 Meq Er Tablet PO DAILY@0800 [facility] Prednisone 20 mg 07/02/25 08:00 Prednisone 20 Mg Tablet PO DAILY@0800 [facility] Radiology Results: ITS Impressions Pulmonary Perfusion Imaging 06/21/25 11:25 IMPRESSION: No compelling or large segmental size areas of mismatch, and with right base findings on today's chest x-ray, the perfusion mismatch in the right base is of uncertain significance. Per PIOPED criteria, this is an indeterminate INTERMEDIATE probability for pulmonary embolus. Renal Ultrasound 06/21/25 13:56 IMPRESSION: 1. Normal kidneys without hydronephrosis. Chest CT 06/21/25 14:30 IMPRESSION: 1. Bibasilar consolidations likely associated with aspiration versus community-acquired pneumonia. Mucoid appearing changes in the bronchi endotracheal air column support aspiration. Findings should be followed radiographically until clear. 2. Other chronic appearing findings. Arterial/Peripheral Duplex 06/25/25 14:48 IMPRESSION: 1. No Doppler evidence of renal artery stenosis. Pelvic/Transvag US 06/26/25 14:16 Impression: Findings are concerning for endometrial neoplasm. Chest X-Ray 06/30/25 08:16 Impression: CHF. Superimposed pneumonia is suspected. The findings appear progressed compared to the previous exam Labs Labs: Laboratory Results - last 24 hr 06/30/25 06/30/25 06/30/25 08:26 09:16 10:33 Puncture Site Right radial ABG pH 7.172 L* ABG pCO2 58.9 H ABG pO2 58.7 L ABG PO2/FiO2 Ratio 0.59 ABG HCO3 21.1 L ABG O2 Saturation 82.7 L* ABG O2 Content 15.3 L ABG Base Excess -7.9 A-a Gradient 595.4 Oxyhemoglobin 83.2 L* Total Hemoglobin 13.1 O2 Delivery Device Non-invasive vent O2 Liters/Min 0.0 Vent Rate 14 FiO2 100 Expiratory Pressure 8 Inspiratory Pressure 14 POC Capillary Glucose 298 H Nasal MRSA (PCR) Not detected 06/30/25 06/30/25 11:25 13:16 Puncture Site Right radial ABG pH 7.245 L* ABG pCO2 49.1 H ABG pO2 67.8 L ABG PO2/FiO2 Ratio 0.75 ABG HCO3 20.8 L ABG O2 Saturation 90.3 L ABG O2 Content 16.2 ABG Base Excess -6.6 A-a Gradient 523.6 Oxyhemoglobin 90.4 Total Hemoglobin 12.7 O2 Delivery Device Other device O2 Liters/Min Not Reportable Vent Rate FiO2 90 Expiratory Pressure Inspiratory Pressure POC Capillary Glucose 244 H Nasal MRSA (PCR) Quality VTE Prophylaxis VTE prophylaxis: pharmacologic ordered (Heparin gtt)
--- NOTE | 2025-07-01 11:28 | PCPTNOTE ---
The patient treatment was not able to be completed due to change in medical status. RN reports patient and family requesting comfort measures and hospice.
[2025-07-01 11:31] VITALS: PULSE 69; RESP 20
[2025-07-01] MEDS: FLUTICASONE/UMECLIDIN/VILANTER 200-62.5-25 MCG ELLIPTA 1 PUFF INHALATION (11:31)
--- NOTE | 2025-07-01 13:22 | PCOTNOTE ---
Per RN patient is not appropriate for therapy and is going hospice.
[2025-07-03 20:07] LABS: Renin Activity, Plasma 7.578 ng/mL/hr (0.167-5.380)
--- NOTE | 2025-07-04 13:15 | PM.DS ---
DS: Admitting Diagnosis Discharge Date 07/01/25 Admitting Diagnosis CHF unspecified DS: Discharge Diagnosis Discharge Diagnosis (1) CHF (congestive heart failure): Qualifiers: Heart failure chronicity: unspecified Heart failure type: unspecified Qualified Code(s): I50.9 - Heart failure, unspecified Code(s): I50.9 - Heart failure, unspecified Status: Acute Assessment and Plan: 06/30: Transferred from medical floor with acute respiratory distress, likely related to CHF exacerbation, chest x-ray does show moderate pulmonary vascular congestion. Likely diastolic dysfunction as seen on echocardiogram is under -patient was given Lasix 60 mg IV x1 and received Bumex 1 mg early this morning -will continue Lasix 40 mg IV b.i.d. 07/01/2025 patient is feeling slightly better today. Patient was transferred out of ICU. Will continue current treatment monitor closely. Family thinking about hospice care. (2) Atrial fibrillation with rapid ventricular response: Code(s): I48.91 - Unspecified atrial fibrillation Status: Acute Assessment and Plan: 06/19: ED EKG showed AFib with RVR rate 155, patient received Cardizem 15 mg IV x1, with subsequent rate control an EKG demonstrating AFib. Patient was started on sotalol initially b.i.d., patient was bradycardic so sotalol was decreased to q.day on 06/21 -she was on heparin infusion which was discontinued and patient was started on apixaban -cardiology following the patient 06/30 worsening respiratory status with increased oxygen requirements, likely related to CHF, pneumonia. Currently in sinus rhythm, rate controlled. Given a respiratory distress, patient is NPO, will hold apixaban and start her on Lovenox 90 mg subQ daily (discussed with Pharmacy) -TSH within normal limits, -magnesium and potassium levels within normal limits 07/01/2025 patient heart rate is under control. Will continue with current treatment and monitor closely. (3) DEBBIE (acute kidney injury): Code(s): N17.9 - Acute kidney failure, unspecified Status: Acute Assessment and Plan: Now that her AFib with RVR is controlled we will monitor. Daily weights, strict intake/output. -1L given in ED, pt with CHF hx (new December 2024) -DEBBIE on chronic kidney disease, could be related to elevated blood pressure, CHF, atrial fibrillation, 06/20: Creatinine baseline seems to be around 1.3-1.6, -creatinine gradually increased since being in the hospital, appreciate Nephrology evaluation, feels that this may be her new baseline -nephrology following -started patient on diuretics for CHF (4) Chronic kidney disease, stage 3b: Code(s): N18.32 - Chronic kidney disease, stage 3b Status: Acute Assessment and Plan: See above. (5) COPD (chronic obstructive pulmonary disease): Code(s): J44.9 - Chronic obstructive pulmonary disease, unspecified Status: Acute Assessment and Plan: COPD exacerbation, her symptoms could have been related to AFib and pulmonary vascular congestion. received Solu-Medrol with EMS. -06/30/2025: Patient brought to the ICU from medical flow with severe respiratory distress which could be related to congestive heart failure, pneumonia and/or COPD exacerbation. Bilateral wheezing, decreased air entry, patient was given diuretics, continuous albuterol nebulizer, started antibiotics given a chest x-ray findings -oxygen requirements have increased, -continue scheduled Solu-Medrol -will increase Xopenex -pulmonary has been following the patient -patient with HFpEF, possible COPD, possible PE as V/Q scan on 06/21 showed intermediate probability -continue anticoagulation -continue Trelegy per pulmonology (6) CAD (coronary artery disease): Qualifiers: Coronary Disease-Associated Artery/Lesion type: unspecified vessel or lesion type [place] vs. transplanted heart: unspecified whether [place] or transplanted heart Associated angina: unspecified whether angina present Qualified Code(s): I25.10 - Atherosclerotic heart disease of [place] coronary artery without angina pectoris Code(s): I25.10 - Atherosclerotic heart disease of [place] coronary artery without angina pectoris Status: Acute Assessment and Plan: 07/01 : S/p stents. 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 (7) Type 2 diabetes mellitus with diabetic chronic kidney disease: Code(s): E11.22 - Type 2 diabetes mellitus with diabetic chronic kidney disease Status: Acute Assessment and Plan: Sliding scale insulin q.6 hours (8) Hypertension: Qualifiers: Hypertension type: essential hypertension Qualified Code(s): I10 - Essential (primary) hypertension Code(s): I10 - Essential (primary) hypertension Status: Acute Assessment and Plan: Stable on current medication, continue Cartia. (9) Pulmonary hypertension: Code(s): I27.20 - Pulmonary hypertension, unspecified Status: Acute Assessment and Plan: Severe pulmonary hypertension as seen on echocardiogram with RVSP of 63 mmHg -pulmonology and cardiology following the patient Plan DVT prophylaxis: Eliquis Stress ulcer prophylaxis: Protonix Nutrition: NPO for now Code Status: DNR/DNI DS: Summary Hospital Course Reason for hospitalization: SOB Hospital Course: 75 years old female was admitted for sob. patient was found to be in CHF. Patient did not h[place]=t better with medications. Family and patient decided to go to in patient hospice. Patient transferred in [place] condition. Status at Discharge Cognitive/behavioral status at discharge: Stable Time Spent with Patient Time attestation: Total time spent providing and/or coordinating discharge services: 30 minutes Exam Narrative: General: Elderly female, in respiratory distress, on BiPAP/AVAPS HEENT:? Pupils equal reactive, sclera is clear, Neck:? Supple Respiratory:? Coarse breath sounds bilaterally, diffuse wheezing, decreased air entry Cardiac:? Sinus rhythm, rate controlled Abdomen:? Soft, nontender, nondistended, obese, normoactive bowel sounds Extremities:? Extremities are warm, no cyanosis, pitting edema bilaterally Neuro:? Patient is awake, alert, in respiratory distress but able to follow simple commands and answers to questions Skin:? No lesions noted Psych:? Anxious Const: General: comfortable and no acute distress Other: A&O x4, obese HENMT: Mouth: Yes moist mucous membranes Eyes: General: appearance normal, both eyes and all related structures Sclera: sclerae normal Pupils: Equal, round and reactive pupils present Neck: Neck: supple Carotids: no bruits Resp: Effort & Inspection: normal respiratory effort Other: Diminished lung sounds, no wheezes present. Tachypneic initially, resolved Cardio: Rate: regular rate Rhythm: regular rhythm and abnormal rhythm Other: Tele: 61bpm GI: Inspection: non-distended Auscultation: normal bowel sounds : General: Yes bladder normal to palpation Bimanual exam- vagina & uterus: bladder normal to palpation Skin: General skin exam: normal color and no rashes or lesions noted Neuro: Cranial nerves: Yes Equal, round and reactive pupils present Motor exam (neuro): 5/5 motor strength present throughout and Normal motor muscle tone present throughout Sensory Exam: normal sensation Extrem: General: no edema Psych: Mental Status: mental status grossly normal Affect: normal affect DS: Data Data Completed and Pending Labs on day of discharge: Labs from last 24 hours 06/27/25 03:39 Renin Activity 7.578 H Aldosterone 8.9 Discharge Plan Discharge Attending physician on discharge: Edil Robb Consulting providers: Krystal Deutsch; Rachel Lynch; Chon Castro; Duong Ellsworth; Vel Marvin; Curt Quezada; Haris Pinzon; Raul Kevin; Neymar Copeland; Yeyo Ruiz; Duong Ayala; Gabriel Brito; Cornelius Rocha; Cesar Jose; Abdon Craig; Kem Palomo; Devyn Silverio; Dhaval Riley Discharging Clinician: Edil Robb Patient Disposition: Hospice - Medical Facility Discharge Instructions: Care Coordination: [facility] to follow patient for PT/OT. [facility] will call set up appointment to see patient. [facility] [phone] Patient Instructions: Antibiotic Form Patient Language: Chinese Stand Alone Forms: General Discharge Information Discharge Medications: Discontinued dapagliflozin propanediol [Farxiga] 10 mg tablet 10 mg PO DAILY aspirin [Adult Low Dose Aspirin] 81 mg tablet,delayed release (DR/EC) 81 mg PO DAILY losartan 100 mg tablet 100 mg PO DAILY Qty: 30 5RF hydrochlorothiazide 12.5 mg tablet See Rx Instructions .ROUTE .COMPLEX Qty: 180 1RF Dose Instruction: TAKE 2 TABLETS BY MOUTH EVERY DAY Rx Instructions: TAKE 2 TABLETS BY MOUTH EVERY DAY fluticasone propionate [Flonase Allergy Relief] 50 mcg/actuation spray,suspension 1 spray intranasal Q12H Qty: 48 1RF Rx Instructions: administer into each nostril isosorbide mononitrate 60 mg tablet extended release 24 hr See Rx Instructions .ROUTE .COMPLEX Qty: 90 1RF Dose Instruction: TAKE 1 TABLET BY MOUTH DAILY Rx Instructions: TAKE 1 TABLET BY MOUTH DAILY levothyroxine 100 mcg tablet See Rx Instructions .ROUTE .COMPLEX Qty: 90 1RF Dose Instruction: TAKE 1 TABLET BY MOUTH DAILY Rx Instructions: TAKE 1 TABLET BY MOUTH DAILY atorvastatin 80 mg tablet See Rx Instructions .ROUTE .COMPLEX Qty: 90 1RF Dose Instruction: TAKE 1 TABLET BY MOUTH DAILY Rx Instructions: TAKE 1 TABLET BY MOUTH DAILY amlodipine 10 mg tablet See Rx Instructions .ROUTE .COMPLEX Qty: 90 1RF Dose Instruction: TAKE 1 TABLET(10 MG) BY MOUTH DAILY Rx Instructions: TAKE 1 TABLET(10 MG) BY MOUTH DAILY allopurinol 100 mg tablet 100 mg PO TID Qty: 270 1RF hydralazine 50 mg tablet 50 mg PO TID Qty: 270 2RF albuterol sulfate 90 mcg/actuation HFA aerosol inhaler See Rx Instructions .ROUTE .COMPLEX Qty: 42.5 0RF Dose Instruction: INHALE 2 PUFFS BY MOUTH EVERY 4 TO 6 HOURS NEEDED FOR SHORTNESS OF BREATH OR WHEEZING Rx Instructions: INHALE 2 PUFFS BY MOUTH EVERY 4 TO 6 HOURS NEEDED FOR SHORTNESS OF BREATH OR WHEEZING metformin 1,000 mg tablet 1,000 mg PO DAILY Qty: 90 1RF Trelegy Ellipta 100-62.5-25 mcg blister with device 1 inh inhalation Q24H Qty: 60 2RF Date of admission: 06/19/25 19:17 Primary Care Provider: Everett Birch Admitting Provider: Shirley Raymundo Attending physician on admission: Edil Robb Condition: Stable Quality VTE Prophylaxis VTE prophylaxis: pharmacologic ordered (Heparin gtt)
== END 2025-07-01 15:51 | disposition hospice, inpatient (51) | DRG 291 ==
LOC: ANHED 16:43 → ANH3MEDSUR 19:30 → ANH3MED 06-20 09:32 → ANHICU 06-20 14:16 → ANHIMU 06-21 22:06 → ANH2MED 07-01 15:51 → ANHICU 07-04 09:14 → ANHIMU 07-04 09:14
PROVIDERS: Emergency Medicine; General Practice; Internal Medicine; Internal Medicine Cardiovascular Disease; Internal Medicine Nephrology; Internal Medicine Pulmonary Disease; Nurse Practitioner; Admitting Provider General Practice; Emergency Provider Student in an Organized Health Care Education/Training Program; PCP Internal Medicine; Visit Provider Internal Medicine
DX: I13.0 Hypertensive heart and chronic kidney disease with heart failure and stage 1 through stage 4 chronic kidney disease, or unspecified chronic kidney disease (principal); I50.33 Acute on chronic diastolic (congestive) heart failure; J18.9 Pneumonia, unspecified organism; J96.01 Acute respiratory failure with hypoxia; N17.9 Acute kidney failure, unspecified; N18.4 Chronic kidney disease, stage 4 (severe); J44.0 Chronic obstructive pulmonary disease with (acute) lower respiratory infection; J44.1 Chronic obstructive pulmonary disease with (acute) exacerbation; E11.22 Type 2 diabetes mellitus with diabetic chronic kidney disease; I48.91 Unspecified atrial fibrillation; I25.10 Atherosclerotic heart disease of native coronary artery without angina pectoris; E03.9 Hypothyroidism, unspecified; E78.5 Hyperlipidemia, unspecified; G47.33 Obstructive sleep apnea (adult) (pediatric); E66.812 Obesity, class 2; R91.1 Solitary pulmonary nodule; N95.0 Postmenopausal bleeding; M19.90 Unspecified osteoarthritis, unspecified site; I05.0 Rheumatic mitral stenosis; R00.1 Bradycardia, unspecified; Z66 Do not resuscitate; I25.2 Old myocardial infarction; Z87.891 Personal history of nicotine dependence; Z95.5 Presence of coronary angioplasty implant and graft; Z98.84 Bariatric surgery status; Z51.5 Encounter for palliative care
CPT/HCPCS: 36415; 36600; 71045; 71046; 71250; 76770; 76830; 76856; 78582; 80053; 82088; 82103; 82104; 82550; 82570; 82805; 82948; 83735; 83880; 84100; 84145; 84156; 84244; 84300; 84439; 84443; 84540; 85018; 85025; 85027; 85610; 85730; 85999; 86038; 86140; 86738; 87040; 87086; 87449; 87637; 87641; 87899; 93005; 93308; 93976; 94002; 94003; 94618; 94640; 94660; 94667; 94762; 96374; 96375; 97110; 97116; 97162; 97166; 97530; 97535; 99285; A9270; A9540; A9558; C8929; J0360; J0616; J0692; J0696; J1163; J1171; J1644; J1650; J1815; J1938; J1939; J1956; J2270; J2470; J2919; J3360; J3373; J7030; Q9957

== ENCOUNTER 2025-07-01 15:52 | HOS | payer OTHER, MEDICARE, SELFPAY ==
[2025-07-01 16:14] VITALS: BMI 37.0
[2025-07-01] MEDS: HYDROmorphone HCL/PF (*CRX) 50 MG in SODIUM CHLORIDE 0.9% IV 95 ML IV CONT (17:15)
--- NOTE | 2025-07-01 17:30 | P.HP_ITS ---
H&P: HPI History of Present Illness Date/Time: 07/01/25 17:30 Chief Complaint: Uncontrolled dyspnea and restlessness Narrative: 75 y/o female with past history of chronic kidney disease stage III, Osteoarthritis, COPD, CHF, AFib RVR, hypertension, CAD, hypothyroidism, gout, type 2 diabetes, and hyperlipidemia was admitted 06/19/25 to [facility] acute care due to dyspnea, acute on chronic congestive heart failure, and atrial fibrillation with rapid ventricular rate 155 beats per minute. She was treated with IV diltiazem followed by p.o. sotalol. Her heart rate was initially controlled. She diuresed well with IV furosemide. She was weaned from high- flow oxygen down to 3 liters/minute. However she had an episode of worsened respiratory distress on June 30. She was weak short of breath struggling to breathe. She was placed on 100% FiO2 by mask and Solu-Medrol and was resumed. Because of her age comorbidities poor quality of life failure to improve with appropriate therapy and her wishes to forego any invasive life-sustaining therapy, she and her family opted for inpatient hospice care for control of dyspnea and restlessness. Review of Systems Review of Systems: Constipated. Mild shortness of breath intermittently. No chest pain or palpitations or edema or dizziness. All systems reviewed & are unremarkable except as noted in HPI and below PMFSH Past Medical History Medical History Chronic kidney disease, stage 3a Screening for breast cancer Fluid in knee Osteoarthritis of left knee Hemoglobin A1c less than 7.0% 08/29/20 A1c 5.9 Joint effusion of knee Left knee pain Pulmonary nodule Eczema Urine test positive for microalbuminuria Hyperkalemia Allergies Leukocytosis Complications of gastric bypass surgery 1994 Cholecystectomy planned Bradycardia Hypertension CAD (coronary artery disease) Hypothyroidism Gout Sleep apnea Chicken pox Migraine Type 2 diabetes mellitus Bulging disc Osteoarthritis Hernia Heart disease Hyperlipidemia Myocardial infarction COPD (chronic obstructive pulmonary disease) Family History Family History Mother Family history of renal failure Diabetes mellitus Hypertension Sibling Heart disease Diabetes mellitus Father Diabetes mellitus Hypertension Other Family history of coronary artery disease Family history of obesity Social History Social History (Updated 07/01/25 @ 17:38 by Yaakov Moy MD) Social History: Code Status: DNR Smoking status: Former smoker Tobacco type: cigarettes Smoking end date: 08/04/17 Alcohol intake: never Substance use: current Substance use type: marijuana Lack of Transportation: No Lack of Food: Sometimes True Current Housing: I Have Housing Concerned About Future Housing: No Difficulty Paying Gas/Electric Bills: No Difficulty Paying for Meds: No Currently Unemployed: No Education: Grade School Difficulty w/ Childcare or Family Care: No Gender identity (if verbalized by the patient): Female Spiritual care concerns: No Meds Home Medications and Allergies Home Medications ?Medication ?Instructions ?Recorded ?Confirmed ?Type aspirin 81 mg tablet,delayed 81 mg PO DAILY 07/29/19 1 08/20/24 History release (Adult Low Dose Aspirin) dapagliflozin propanediol 10 mg 10 mg PO DAILY 4 06/20/25 History tablet (Farxiga) losartan 100 mg tablet 100 mg PO DAILY #30 tabs 06/20/25 Rx fluticasone propionate 50 1 spray intranasal Q12H #48 grams 02/25/25 06/20/25 Rx mcg/actuation nasal spray,suspension (Flonase Allergy Relief) hydrochlorothiazide 12.5 mg tablet See Rx Instructions .Route 02/25/25 06/20/25 Rx .COMPLEX #180 tabs amlodipine 10 mg tablet See Rx Instructions .Route 0 03/14/25 06/20/25 Rx .COMPLEX #90 tabs atorvastatin 80 mg tablet See Rx Instructions .Route 0 03/14/25 06/20/25 Rx .COMPLEX #90 tabs isosorbide mononitrate 60 mg See Rx Instructions .Maribeth betts 03/14/25 06/20/25 Rx tablet,extended release 24 hr .COMPLEX #90 tabs levothyroxine 100 mcg tablet See Rx Instructions .Maribeth betts 03/14/25 06/20/25 Rx .COMPLEX #90 tabs allopurinol 100 mg tablet 100 mg PO TID #270 tabs 04/0406/20/25 Rx albuterol sulfate 90 mcg/actuation See Rx Instructions .Route 05/02/25 06/20/25 Rx aerosol inhaler .COMPLEX #42.5 grams hydralazine 50 mg tablet 50 mg PO TID #270 tabs 05/0206/20/25 Rx metformin 1,000 mg tablet 1,000 mg PO DAILY #90 tabs 1 06/20/25 Rx fluticasone fur. 100 mcg-umeclid 1 inh inhalation Q24H #60 ea 05/27/25 06/20/25 Rx 62.5 mcg-vilant 25 mcg inhalat.powder (Trelegy Ellipta) Allergies Allergy/AdvReac Type Severity Reaction Status Date / Time naproxen AdvReac Itching Verified 07/01/25 16:14 Vital Signs Vital Signs - 24 hr 07/01/25 16:14 Oxygen Delivery Nasal Cannula Oxygen Flow Rate 2 Exam Narrative: HEENT: PERRL, sclerae nonicteric, pharyngeal mucosa pink and intact NECK: No JVD, adenopathy, or thyromegaly CHEST: Mildly tachypneic, few crackles at bases and slightly coarse breath sounds elsewhere HEART: NL S1/S2, irregular, no murmur ABDOMEN: BS+, soft, nontender, no mass, no bruits EXTREMITIES: No cyanosis, edema, or clubbing NEUROLOGIC: CN intact and symmetric to inspection MUSCULOSKELETAL: No deformity to visual inspection PSYCH: Alert, oriented to person, place, and time Assessment and Plan Assessment and plan (1) Hospice care: Code(s): Z51.5 - Encounter for palliative care Status: Acute Assessment and Plan: * Meet inpatient hospice criteria due to requiring continuous IV hydromorphone 0.25 milligrams/hour and schedule IV diazepam at 5 mg every 8 hours to control her dyspnea and restlessness * P.r.n. palliative regimen ordered * 07/01/2025 discussed care and prognosis with patient and family at bedside (2) Acute respiratory failure with hypoxia and hypercarbia: Code(s): J96.01 - Acute respiratory failure with hypoxia; J96.02 - Acute respiratory failure with hypercapnia Status: Acute (3) CHF (congestive heart failure): Qualifiers: Heart failure chronicity: unspecified Heart failure type: unspecified Qualified Code(s): I50.9 - Heart failure, unspecified Code(s): I50.9 - Heart failure, unspecified Status: Acute (4) Pulmonary hypertension: Code(s): I27.20 - Pulmonary hypertension, unspecified Status: Acute (5) CAD (coronary artery disease): Qualifiers: Coronary Disease-Associated Artery/Lesion type: unspecified vessel or lesion type [place] vs. 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 insulin use: without assisted use Diabetes mellitus complication status: without complication Qualified Code(s): E11.9 - Type 2 diabetes mellitus without complications Code(s): E11.9 - Type 2 diabetes mellitus without complications Status: Acute (8) Chronic kidney disease, stage 3b: Code(s): N18.32 - Chronic kidney disease, stage 3b Status: Acute (9) Acute exacerbation of chronic obstructive pulmonary disease: Code(s): J44.1 - Chronic obstructive pulmonary disease with (acute) exacerbation Status: Acute (10) Sleep apnea: Qualifiers: Sleep apnea type: unspecified type Qualified Code(s): G47.30 - Sleep apnea, unspecified Code(s): G47.30 - Sleep apnea, unspecified Status: Acute
[2025-07-01] MEDS: diazePAM INJ (*CRX) 10 MG/2 ML SYRINGE 5 MG IV PUSH (21:25)
[2025-07-02] MEDS: ACETAMINOPHEN 500 MG TABLET 1000 MG PO ×2 (00:13→13:09)
[2025-07-02] MEDS: diazePAM INJ (*CRX) 10 MG/2 ML SYRINGE 5 MG IV PUSH ×3 (05:53→21:19)
[2025-07-02 14:44] VITALS: BP 171/57; PULSE 66; RESP 16; TEMP 36.3; O2SAT 91
--- NOTE | 2025-07-02 18:03 | P.PNIM_ITS ---
Progress Note: A&P Assessment and Plan (1) Hospice care: Code(s): Z51.5 - Encounter for palliative care Status: Acute Assessment and Plan: * Meet inpatient hospice criteria due to requiring continuous IV hydromorphone 0.25 milligrams/hour and schedule IV diazepam at 5 mg every 8 hours to control her dyspnea and restlessness * P.r.n. palliative regimen ordered * 07/01/2025 discussed care and prognosis with patient and family at bedside * 07/02/2025 required 3 prn medications today, 1 IV, 2 PO, unclear whether her symptoms are due to illness or hydromorphone side effect, discussed with patient daughters and will monitor (2) Acute respiratory failure with hypoxia and hypercarbia: Code(s): J96.01 - Acute respiratory failure with hypoxia; J96.02 - Acute respiratory failure with hypercapnia Status: Acute (3) CHF (congestive heart failure): Qualifiers: Heart failure chronicity: unspecified Heart failure type: unspecified Qualified Code(s): I50.9 - Heart failure, unspecified Code(s): I50.9 - Heart failure, unspecified Status: Acute (4) Pulmonary hypertension: Code(s): I27.20 - Pulmonary hypertension, unspecified Status: Acute (5) CAD (coronary artery disease): Qualifiers: Coronary Disease-Associated Artery/Lesion type: unspecified vessel or lesion type [place] vs. transplanted heart: unspecified whether [place] or transplanted heart Associated angina: unspecified whether angina present Qualified Code(s): I25.10 - Atherosclerotic heart disease of [place] coronary artery without angina pectoris Code(s): I25.10 - Atherosclerotic heart disease of [place] coronary artery without angina pectoris Status: Acute (6) Atrial fibrillation with rapid ventricular response: Code(s): I48.91 - Unspecified atrial fibrillation Status: Acute (7) Type 2 diabetes mellitus: Qualifiers: Diabetes mellitus intermediate insulin use: without intermediate use Diabetes mellitus complication status: without complication Qualified Code(s): E11.9 - Type 2 diabetes mellitus without complications Code(s): E11.9 - Type 2 diabetes mellitus without complications Status: Acute (8) Chronic kidney disease, stage 3b: Code(s): N18.32 - Chronic kidney disease, stage 3b Status: Acute (9) Acute exacerbation of chronic obstructive pulmonary disease: Code(s): J44.1 - Chronic obstructive pulmonary disease with (acute) exacerbation Status: Acute (10) Sleep apnea: Qualifiers: Sleep apnea type: unspecified type Qualified Code(s): G47.30 - Sleep apnea, unspecified Code(s): G47.30 - Sleep apnea, unspecified Status: Acute Subjective Date/time seen: 07/02/25 18:03 Interval history: Headache and nausea earlier today. IV prochlorperazine and PO tylenol provided relief. Also received PO senna for constipation. Eating small amounts. Remains alert. Daughters at bedside. Review of Systems Review of Systems: All systems reviewed & are unremarkable except as noted in HPI and below Exam Narrative: HEENT: PERRL, sclerae nonicteric, pharyngeal mucosa pink and intact NECK: No JVD CHEST: Mildly tachypneic, few crackles at bases HEART: NL S1/S2, irregular, no murmur ABDOMEN: BS+, soft, nontender, no mass, no bruits EXTREMITIES: No cyanosis, edema, or clubbing NEUROLOGIC: CN intact and symmetric to inspection MUSCULOSKELETAL: No deformity to visual inspection PSYCH: Alert, oriented to person, place, and time Objective Data Vital Signs Vital Signs: Vital Signs - 24 hr 07/01/25 20:00 07/02/25 08:00 07/02/25 14:44 Temperature 97.4 F L Pulse Rate 66 Respiratory Rate 16 Blood Pressure 171/57 H Pulse Oximetry 91 Oxygen Delivery CPAP CPAP Intake/Output Intake/Output: Intake & Output 06/29/25 06/30/25 07/01/25 07/02/25 23:59 23:59 23:59 23:59 Intake Total 10 720 Balance 10 720 Meds/Results Medications: Active Medications Generic Name Dose Route Start Last Admin Trade Name Mynor PRN Reason Stop Dose Admin Acetaminophen 1,000 mg 07/01/25 23:57 07/02/25 13:09 Acetaminophen 500 Mg Tablet PO 1,000 mg Q6H PRN Administration Mild Pain (1-3) or Fever Artificial Tears 1 - 2 drop 07/01/25 16:40 Artificial Tears Ophth Soln 15 Ml Bottle EACH EYE Q12H PRN Dry Eye(s) Bisacodyl 10 mg 07/01/25 16:40 Bisacodyl 10 Mg Suppository RECTAL DAILY PRN Constipation Diazepam 5 mg 07/01/25 22:00 07/02/25 13:45 Diazepam Inj (*Crx) 10 Mg/2 Ml Syringe IV PUSH 5 mg Q8HR DAVID Administration Diazepam 5 mg 07/01/25 16:44 Diazepam Inj (*Crx) 10 Mg/2 Ml Syringe IV PUSH Q4H PRN RESTLESSNESS/ANXIETY Glycopyrrolate 0.1 mg 07/01/25 16:40 Glycopyrrolate Inj (*Sp) 0.2 Mg/Ml Vial IV PUSH Q4H PRN EXCESS secretions Hydromorphone HCl 0.5 mg 07/01/25 16:43 Hydromorphone Hcl Inj (*Crx) 1 Mg/Ml Syr IV PUSH Q2H PRN Pain/DYSPNEA Hydromorphone HCl 50 mg/ 100 mls @ 0.5 mls/hr 07/01/25 16:45 07/01/25 17:15 Sodium Chloride IV CONT 0.25 mg/hr .Q24H DAVID 0.5 mls/hr 0.25 MG/HR Administration Prochlorperazine Edisylate 10 mg 07/01/25 16:40 Prochlorperazine Edisylate 10 Mg/2 Ml Vial IV PUSH Q6H PRN Nausea And Vomiting Senna 8.6 mg 07/02/25 21:00 Sennosides 8.6 Mg Tablet PO HS DAVID Labs Labs: Laboratory Results - last 24 hr 07/02/25 13:38 POC Capillary Glucose 266 H
[2025-07-02] MEDS: HYDROmorphone HCL/PF (*CRX) 50 MG in SODIUM CHLORIDE 0.9% IV 95 ML IV CONT (18:18)
[2025-07-02 19:49] VITALS: BP 164/57; PULSE 60; RESP 20; TEMP 36.6; O2SAT 94
[2025-07-03] MEDS: diazePAM INJ (*CRX) 10 MG/2 ML SYRINGE 5 MG IV PUSH ×4 (06:00→21:26)
[2025-07-03] MEDS: SENNOSIDES 8.6 MG TABLET PO ×2 (10:18→21:26)
[2025-07-03 11:08] VITALS: BP 186/62; PULSE 84; RESP 22; O2SAT 93
--- NOTE | 2025-07-03 15:16 | P.PNIM_ITS ---
Progress Note: A&P Assessment and Plan (1) Hospice care: Code(s): Z51.5 - Encounter for palliative care Status: Acute Assessment and Plan: * Meet inpatient hospice criteria due to requiring continuous IV hydromorphone 0.25 milligrams/hour and schedule IV diazepam at 5 mg every 8 hours to control her dyspnea and restlessness * P.r.n. palliative regimen ordered * 07/01/2025 discussed care and prognosis with patient and family at bedside * 07/02/2025 required 3 prn medications today, 1 IV, 2 PO, unclear whether her symptoms are due to illness or hydromorphone side effect, discussed with patient daughters and will monitor * 07/03/2025 required prn diazepam and use of CPAP today due to dyspnea, anxiety, hydromorphone increased to 0.5 mg/hr, disposition issue due to daughter from [place] seeking temporary housing to have hospice services at home (2) Acute respiratory failure with hypoxia and hypercarbia: Code(s): J96.01 - Acute respiratory failure with hypoxia; J96.02 - Acute respiratory failure with hypercapnia Status: Acute (3) CHF (congestive heart failure): Qualifiers: Heart failure chronicity: unspecified Heart failure type: unspecified Qualified Code(s): I50.9 - Heart failure, unspecified Code(s): I50.9 - Heart failure, unspecified Status: Acute (4) Pulmonary hypertension: Code(s): I27.20 - Pulmonary hypertension, unspecified Status: Acute (5) CAD (coronary artery disease): Qualifiers: Coronary Disease-Associated Artery/Lesion type: unspecified vessel or lesion type [place] vs. 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 long-term use Diabetes mellitus complication status: without complication Qualified Code(s): E11.9 - Type 2 diabetes mellitus without complications Code(s): E11.9 - Type 2 diabetes mellitus without complications Status: Acute (8) Chronic kidney disease, stage 3b: Code(s): N18.32 - Chronic kidney disease, stage 3b Status: Acute (9) Acute exacerbation of chronic obstructive pulmonary disease: Code(s): J44.1 - Chronic obstructive pulmonary disease with (acute) exacerbation Status: Acute (10) Sleep apnea: Qualifiers: Sleep apnea type: unspecified type Qualified Code(s): G47.30 - Sleep apnea, unspecified Code(s): G47.30 - Sleep apnea, unspecified Status: Acute Subjective Date/time seen: 07/03/25 15:16 Interval history: At 3 small pieces of chicken for lunch (leg and 2 thighs). Was anxious and sob earlier. Required prn diazepam and use of CPAP. IV site was changed due to pain. Currently comfortable. Hx obtained from daughter at bedside. Review of Systems Review of Systems: ROS unobtainable: Yes unobtainable due to medical condition Exam Narrative: HEENT: PERRL, sclerae nonicteric, pharyngeal mucosa pink and intact NECK: No JVD CHEST: Coarse BS, few crackles at bases HEART: NL S1/S2, irregular, no murmur ABDOMEN: BS+, soft, nontender, no mass, no bruits EXTREMITIES: No cyanosis, edema, or clubbing NEUROLOGIC: CN intact and symmetric to inspection MUSCULOSKELETAL: No deformity to visual inspection PSYCH: Drowsy, arouses easily, currently oriented only to person Objective Data Vital Signs Vital Signs: Vital Signs - 24 hr 07/02/25 19:49 07/03/25 08:00 11/30/25 11:08 Temperature 97.8 F Pulse Rate 60 84 Respiratory Rate 20 22 H Blood Pressure 164/57 H 186/62 H Pulse Oximetry 94 93 Oxygen Delivery CPAP Oxygen Flow Rate 2 Intake/Output Intake/Output: Intake & Output 06/30/25 07/01/25 07/02/25 07/03/25 23:59 23:59 23:59 23:59 Intake Total 10 732.5 669.2 Output Total 1450 Balance 10 732.5 -780.8 Meds/Results Medications: Active Medications Generic Name Dose Route Start Last Admin Trade Name Freq PRN Reason Stop Dose Admin Acetaminophen 1,000 mg 07/01/25 23:57 07/02/25 13:09 Acetaminophen 500 Mg Tablet PO 1,000 mg Q6H PRN Administration Mild Pain (1-3) or Fever Artificial Tears 1 - 2 drop 07/01/25 16:40 Artificial Tears Ophth Soln 15 Ml Bottle EACH EYE Q12H PRN Dry Eye(s) Bisacodyl 10 mg 07/01/25 16:40 Bisacodyl 10 Mg Suppository RECTAL DAILY PRN Constipation Diazepam 5 mg 07/01/25 22:00 07/03/25 14:52 Diazepam Inj (*Crx) 10 Mg/2 Ml Syringe IV PUSH 5 mg Q8HR DAVID Administration Diazepam 5 mg 07/01/25 16:44 07/03/25 11:15 Diazepam Inj (*Crx) 10 Mg/2 Ml Syringe IV PUSH 5 mg Q4H PRN Administration RESTLESSNESS/ANXIETY Glycopyrrolate 0.1 mg 07/01/25 16:40 Glycopyrrolate Inj (*Sp) 0.2 Mg/Ml Vial IV PUSH Q4H PRN EXCESS secretions Hydromorphone HCl 0.5 mg 07/01/25 16:43 Hydromorphone Hcl Inj (*Crx) 1 Mg/Ml Syr IV PUSH Q2H PRN Pain/DYSPNEA Hydromorphone HCl 50 mg/ 100 mls @ 1 mls/hr 07/01/25 16:45 07/03/25 12:36 Sodium Chloride IV CONT 0.5 mg/hr .Q24H DAVID 1 mls/hr 0.5 MG/HR Infusion Prochlorperazine Edisylate 10 mg 07/01/25 16:40 Prochlorperazine Edisylate 10 Mg/2 Ml Vial IV PUSH Q6H PRN Nausea And Vomiting Senna 8.6 mg 07/02/25 21:00 07/03/25 10:18 Sennosides 8.6 Mg Tablet PO 8.6 mg HS DAVID Administration
[2025-07-03] MEDS: HYDROmorphone HCL/PF (*CRX) 50 MG in SODIUM CHLORIDE 0.9% IV 95 ML IV CONT (17:54)
[2025-07-04 04:16] VITALS: BP 111/50; PULSE 63; RESP 12; TEMP 36.6; O2SAT 93
[2025-07-04] MEDS: diazePAM INJ (*CRX) 10 MG/2 ML SYRINGE 5 MG IV PUSH ×3 (05:36→22:31)
[2025-07-04 13:58] VITALS: BP 176/63; PULSE 68; RESP 18; O2SAT 95
--- NOTE | 2025-07-04 16:59 | P.PNIM_ITS ---
Assessment and Plan Assessment and Plan (1) Hospice care: Code(s): Z51.5 - Encounter for palliative care Status: Acute Assessment and Plan: * Meet inpatient hospice criteria due to requiring continuous IV hydromorphone 0.25 milligrams/hour and schedule IV diazepam at 5 mg every 8 hours to control her dyspnea and restlessness * P.r.n. palliative regimen ordered * 07/01/2025 discussed care and prognosis with patient and family at bedside * 07/02/2025 required 3 prn medications today, 1 IV, 2 PO, unclear whether her symptoms are due to illness or hydromorphone side effect, discussed with patient daughters and will monitor * 07/03/2025 required prn diazepam and use of CPAP today due to dyspnea, anxiety, hydromorphone increased to 0.5 mg/hr, disposition issue due to daughter from [place] seeking temporary housing to have hospice services at home * 07/04/2025 declining with more hours of sleep and less p.o. intake, symptoms managed well, discussed backup option for discharge to patient's [id number]'s home locally, transition to p.o. meds in the a.m. of 07/05/2025 if stable enough to do so and consider discharge that afternoon if tolerated well (2) Acute respiratory failure with hypoxia and hypercarbia: Code(s): J96.01 - Acute respiratory failure with hypoxia; J96.02 - Acute respiratory failure with hypercapnia Status: Acute (3) CHF (congestive heart failure): Qualifiers: Heart failure chronicity: unspecified Heart failure type: unspecified Qualified Code(s): I50.9 - Heart failure, unspecified Code(s): I50.9 - Heart failure, unspecified Status: Acute (4) Pulmonary hypertension: Code(s): I27.20 - Pulmonary hypertension, unspecified Status: Acute (5) CAD (coronary artery disease): Qualifiers: Coronary Disease-Associated Artery/Lesion type: unspecified vessel or lesion type [place] vs. transplanted heart: unspecified whether [place] or transplanted heart Associated angina: unspecified whether angina present Qualified Code(s): I25.10 - Atherosclerotic heart disease of [place] coronary artery without angina pectoris Code(s): I25.10 - Atherosclerotic heart disease of [place] coronary artery without angina pectoris Status: Acute (6) Atrial fibrillation with rapid ventricular response: Code(s): I48.91 - Unspecified atrial fibrillation Status: Acute (7) Type 2 diabetes mellitus: Qualifiers: Diabetes mellitus assisted insulin use: without buttermaker use Diabetes mellitus complication status: without complication Qualified Code(s): E11.9 - Type 2 diabetes mellitus without complications Code(s): E11.9 - Type 2 diabetes mellitus without complications Status: Acute (8) Chronic kidney disease, stage 3b: Code(s): N18.32 - Chronic kidney disease, stage 3b Status: Acute (9) Acute exacerbation of chronic obstructive pulmonary disease: Code(s): J44.1 - Chronic obstructive pulmonary disease with (acute) exacerbation Status: Acute (10) Sleep apnea: Qualifiers: Sleep apnea type: unspecified type Qualified Code(s): G47.30 - Sleep apnea, unspecified Code(s): G47.30 - Sleep apnea, unspecified Status: Acute Subjective Date/time seen: 07/04/25 16:59 Interval history: A very little today. Sleeping more. More tired. Using CPAP more. Tolerating it well. Uses this chronically and is very comfortable with it. Review of Systems Review of Systems: ROS unobtainable: Yes unobtainable due to medical condition Exam Narrative: HEENT: PERRL, sclerae nonicteric, pharyngeal mucosa pink and intact NECK: No JVD CHEST: Coarse BS, few crackles at bases HEART: NL S1/S2, irregular, no murmur ABDOMEN: BS+, soft, nontender, no mass, no bruits EXTREMITIES: No cyanosis, edema, or clubbing NEUROLOGIC: CN intact and symmetric to inspection MUSCULOSKELETAL: No deformity to visual inspection PSYCH: Drowsy, arouses easily, currently oriented only to person Objective Data Vital Signs Vital Signs: Vital Signs - 24 hr 07/03/25 21:20 07/04/25 04:16 07/04/25 08:00 Temperature 97.8 F Pulse Rate 63 Respiratory Rate 12 Blood Pressure 111/50 L Pulse Oximetry 93 Oxygen Delivery CPAP CPAP Oxygen Flow Rate 2 07/04/25 13:58 Temperature Pulse Rate 68 Respiratory Rate 18 Blood Pressure 176/63 H Pulse Oximetry 95 Oxygen Delivery Oxygen Flow Rate Intake/Output Intake/Output: Intake & Output 07/01/25 07/02/25 07/03/25 07/04/25 23:59 23:59 23:59 23:59 Intake Total 10 732.5 674.5 240 Output Total 2150 Balance 10 732.5 -1475.5 240 Meds/Results Medications: Active Medications Generic Name Dose Route Start Last Admin Trade Name Freq PRN Reason Stop Dose Admin Acetaminophen 1,000 mg 07/01/25 23:57 07/02/25 13:09 Acetaminophen 500 Mg Tablet PO 1,000 mg Q6H PRN Administration Mild Pain (1-3) or Fever Artificial Tears 1 - 2 drop 07/01/25 16:40 Artificial Tears Ophth Soln 15 Ml Bottle EACH EYE Q12H PRN Dry Eye(s) Bisacodyl 10 mg 07/01/25 16:40 Bisacodyl 10 Mg Suppository RECTAL DAILY PRN Constipation Diazepam 5 mg 07/01/25 22:00 07/04/25 14:54 Diazepam Inj (*Crx) 10 Mg/2 Ml Syringe IV PUSH 5 mg Q8HR DAVID Administration Diazepam 5 mg 07/01/25 16:44 07/03/25 11:15 Diazepam Inj (*Crx) 10 Mg/2 Ml Syringe IV PUSH 5 mg Q4H PRN Administration RESTLESSNESS/ANXIETY Glycopyrrolate 0.1 mg 07/01/25 16:40 Glycopyrrolate Inj (*Sp) 0.2 Mg/Ml Vial IV PUSH Q4H PRN EXCESS secretions Hydromorphone HCl 0.5 mg 07/01/25 16:43 Hydromorphone Hcl Inj (*Crx) 1 Mg/Ml Syr IV PUSH Q2H PRN Pain/DYSPNEA Hydromorphone HCl 50 mg/ 100 mls @ 1 mls/hr 07/01/25 16:45 07/03/25 17:54 Sodium Chloride IV CONT 0.5 mg/hr .Q24H DAVID 1 mls/hr 0.5 MG/HR Administration Prochlorperazine Edisylate 10 mg 07/01/25 16:40 Prochlorperazine Edisylate 10 Mg/2 Ml Vial IV PUSH Q6H PRN Nausea And Vomiting Senna 8.6 mg 07/02/25 21:00 07/03/25 21:26 Sennosides 8.6 Mg Tablet PO 8.6 mg HS DAVID Administration
[2025-07-04] MEDS: HYDROmorphone HCL/PF (*CRX) 50 MG in SODIUM CHLORIDE 0.9% IV 95 ML IV CONT (17:20)
[2025-07-04 20:00] VITALS: PULSE 68; RESP 18; O2SAT 95
[2025-07-05 03:51] VITALS: BP 148/45; PULSE 58; RESP 8; TEMP 36; O2SAT 96
[2025-07-05] MEDS: diazePAM INJ (*CRX) 10 MG/2 ML SYRINGE 5 MG IV PUSH (05:43)
--- NOTE | 2025-07-05 07:52 | P.PNIM_ITS ---
Assessment and Plan Assessment and Plan (1) Hospice care: Code(s): Z51.5 - Encounter for palliative care Status: Acute Assessment and Plan: * Meet inpatient hospice criteria due to requiring continuous IV hydromorphone 0.25 milligrams/hour and schedule IV diazepam at 5 mg every 8 hours to control her dyspnea and restlessness * P.r.n. palliative regimen ordered * 07/01/2025 discussed care and prognosis with patient and family at bedside * 07/02/2025 required 3 prn medications today, 1 IV, 2 PO, unclear whether her symptoms are due to illness or hydromorphone side effect, discussed with patient daughters and will monitor * 07/03/2025 required prn diazepam and use of CPAP today due to dyspnea, anxiety, hydromorphone increased to 0.5 mg/hr, disposition issue due to daughter from [place] seeking temporary housing to have hospice services at home * 07/04/2025 declining with more hours of sleep and less p.o. intake, symptoms managed well, discussed backup option for discharge to patient's [id number]'s home locally, transition to p.o. meds in the a.m. of 07/05/2025 if stable enough to do so and consider discharge that afternoon if tolerated well * 07/05/2025 continues to eat little, but still with po intake, still communicates with family, comfortable, but hypothermic, RR 8, attempted transition to po meds, methadone 10 mg q 12 hr, hydromorphone 4 mg q 4 hr prn (2) Acute respiratory failure with hypoxia and hypercarbia: Code(s): J96.01 - Acute respiratory failure with hypoxia; J96.02 - Acute respiratory failure with hypercapnia Status: Acute (3) CHF (congestive heart failure): Qualifiers: Heart failure chronicity: unspecified Heart failure type: unspecified Qualified Code(s): I50.9 - Heart failure, unspecified Code(s): I50.9 - Heart failure, unspecified Status: Acute (4) Pulmonary hypertension: Code(s): I27.20 - Pulmonary hypertension, unspecified Status: Acute (5) CAD (coronary artery disease): Qualifiers: Coronary Disease-Associated Artery/Lesion type: unspecified vessel or lesion type [place] vs. transplanted heart: unspecified whether [place] or transplanted heart Associated angina: unspecified whether angina present Qualified Code(s): I25.10 - Atherosclerotic heart disease of [place] coronary artery without angina pectoris Code(s): I25.10 - Atherosclerotic heart disease of [place] coronary artery without angina pectoris Status: Acute (6) Atrial fibrillation with rapid ventricular response: Code(s): I48.91 - Unspecified atrial fibrillation Status: Acute (7) Type 2 diabetes mellitus: Qualifiers: Diabetes mellitus sales representative door to door insulin use: without assisted use Diabetes mellitus complication status: without complication Qualified Code(s): E11.9 - Type 2 diabetes mellitus without complications Code(s): E11.9 - Type 2 diabetes mellitus without complications Status: Acute (8) Chronic kidney disease, stage 3b: Code(s): N18.32 - Chronic kidney disease, stage 3b Status: Acute (9) Acute exacerbation of chronic obstructive pulmonary disease: Code(s): J44.1 - Chronic obstructive pulmonary disease with (acute) exacerbation Status: Acute (10) Sleep apnea: Qualifiers: Sleep apnea type: unspecified type Qualified Code(s): G47.30 - Sleep apnea, unspecified Code(s): G47.30 - Sleep apnea, unspecified Status: Acute Subjective Date/time seen: 07/05/25 07:52 Interval history: Nothing by mouth yet today. Slept through the night. Review of Systems Review of Systems: ROS unobtainable: Yes unobtainable due to medical condition Exam Narrative: HEENT: PERRL, sclerae nonicteric, pharyngeal mucosa pink and intact NECK: No JVD CHEST: Coarse BS, few crackles at bases HEART: NL S1/S2, irregular, no murmur ABDOMEN: BS+, soft, nontender, no mass, no bruits EXTREMITIES: No cyanosis, edema, or clubbing NEUROLOGIC: CN intact and symmetric to inspection MUSCULOSKELETAL: No deformity to visual inspection PSYCH: Drowsy, arouses easily, currently oriented only to person Objective Data Vital Signs Vital Signs: Vital Signs - 24 hr 07/04/25 08:00 07/04/25 13:58 07/04/25 20:00 Temperature Pulse Rate 68 68 Respiratory Rate 18 18 Blood Pressure 176/63 H Pulse Oximetry 95 95 Oxygen Delivery CPAP CPAP Oxygen Flow Rate 2 07/05/25 03:51 Temperature 96.8 F L Pulse Rate 58 L Respiratory Rate 8 L Blood Pressure 148/45 H Pulse Oximetry 96 Oxygen Delivery Oxygen Flow Rate Intake/Output Intake/Output: Intake & Output 07/02/25 07/03/25 07/04/25 07/05/25 23:59 23:59 23:59 23:59 Intake Total 732.5 674.5 263.4 Output Total 2150 1300 Balance 732.5 -1475.5 -1036.6 Meds/Results Medications: Active Medications Generic Name Dose Route Start Last Admin Trade Name Freq PRN Reason Stop Dose Admin Acetaminophen 1,000 mg 07/01/25 23:57 07/02/25 13:09 Acetaminophen 500 Mg Tablet PO 1,000 mg Q6H PRN Administration Mild Pain (1-3) or Fever Artificial Tears 1 - 2 drop 07/01/25 16:40 Artificial Tears Ophth Soln 15 Ml Bottle EACH EYE Q12H PRN Dry Eye(s) Bisacodyl 10 mg 07/01/25 16:40 Bisacodyl 10 Mg Suppository RECTAL DAILY PRN Constipation Diazepam 5 mg 07/01/25 22:00 07/05/25 05:43 Diazepam Inj (*Crx) 10 Mg/2 Ml Syringe IV PUSH 5 mg Q8HR DAVID Administration Diazepam 5 mg 07/01/25 16:44 07/03/25 11:15 Diazepam Inj (*Crx) 10 Mg/2 Ml Syringe IV PUSH 5 mg Q4H PRN Administration RESTLESSNESS/ANXIETY Glycopyrrolate 0.1 mg 07/01/25 16:40 Glycopyrrolate Inj (*Sp) 0.2 Mg/Ml Vial IV PUSH Q4H PRN EXCESS secretions Hydromorphone HCl 0.5 mg 07/01/25 16:43 Hydromorphone Hcl Inj (*Crx) 1 Mg/Ml Syr IV PUSH Q2H PRN Pain/DYSPNEA Hydromorphone HCl 50 mg/ 100 mls @ 1 mls/hr 07/01/25 16:45 07/04/25 17:20 Sodium Chloride IV CONT 0.5 mg/hr .Q24H DAVID 1 mls/hr 0.5 MG/HR Administration Prochlorperazine Edisylate 10 mg 07/01/25 16:40 Prochlorperazine Edisylate 10 Mg/2 Ml Vial IV PUSH Q6H PRN Nausea And Vomiting Senna 8.6 mg 07/02/25 21:00 07/05/25 01:35 Sennosides 8.6 Mg Tablet PO Not Given HS DAVID
[2025-07-05 08:00] VITALS: O2SAT 96
[2025-07-05] MEDS: methADONE HCL (*CRX) 10 MG TABLET PO ×2 (08:24→20:57)
[2025-07-05] MEDS: diazePAM (*CRX) 5 MG TABLET PO (08:25)
[2025-07-05] MEDS: BISACODYL 10 MG SUPPOSITORY RECTAL (12:37)
[2025-07-05 15:57] VITALS: BP 178/59; PULSE 94; RESP 18; TEMP 36.6; O2SAT 91
[2025-07-05] MEDS: HYDROmorphone HCL (*CRX) 4 MG TABLET PO (17:04)
[2025-07-05 20:44] VITALS: BP 172/57; PULSE 76; RESP 12; TEMP 36.4; O2SAT 92
[2025-07-05] MEDS: SENNOSIDES 8.6 MG TABLET 17.2 MG PO (20:57)
[2025-07-06 07:30] VITALS: O2SAT 90
[2025-07-06] MEDS: methADONE HCL (*CRX) 10 MG TABLET PO ×2 (08:18→20:26)
[2025-07-06] MEDS: diazePAM (*CRX) 5 MG TABLET PO (08:22)
[2025-07-06] MEDS: HYDROmorphone HCL (*CRX) 4 MG TABLET PO ×2 (11:27→17:55)
[2025-07-06 15:04] VITALS: BP 154/52; PULSE 62; RESP 10; TEMP 36.1; O2SAT 95
--- NOTE | 2025-07-06 17:10 | P.PNIM_ITS ---
Assessment and Plan Assessment and Plan (1) Hospice care: Code(s): Z51.5 - Encounter for palliative care Status: Acute Assessment and Plan: * Meet inpatient hospice criteria due to requiring continuous IV hydromorphone 0.25 milligrams/hour and schedule IV diazepam at 5 mg every 8 hours to control her dyspnea and restlessness * P.r.n. palliative regimen ordered * 07/01/2025 discussed care and prognosis with patient and family at bedside * 07/02/2025 required 3 prn medications today, 1 IV, 2 PO, unclear whether her symptoms are due to illness or hydromorphone side effect, discussed with patient daughters and will monitor * 07/03/2025 required prn diazepam and use of CPAP today due to dyspnea, anxiety, hydromorphone increased to 0.5 mg/hr, disposition issue due to daughter from [place] seeking temporary housing to have hospice services at home * 07/04/2025 declining with more hours of sleep and less p.o. intake, symptoms managed well, discussed backup option for discharge to patient's [id number]'s home locally, transition to p.o. meds in the a.m. of 07/05/2025 if stable enough to do so and consider discharge that afternoon if tolerated well * 07/05/2025 continues to eat little, but still with po intake, still communicates with family, comfortable, but hypothermic, RR 8, attempted transition to po meds, methadone 10 mg q 12 hr, hydromorphone 4 mg q 4 hr prn * 07/06/2025 required p.r.n. expectorant and hydromorphone 07/05, required laxatives p.o. and rectally for abdominal cramping that was severe 07/06, daughter is preparing newly purchased trailer for patient to be discharged 07/07 (2) Acute respiratory failure with hypoxia and hypercarbia: Code(s): J96.01 - Acute respiratory failure with hypoxia; J96.02 - Acute respiratory failure with hypercapnia Status: Acute (3) CHF (congestive heart failure): Qualifiers: Heart failure chronicity: unspecified Heart failure type: unspecified Qualified Code(s): I50.9 - Heart failure, unspecified Code(s): I50.9 - Heart failure, unspecified Status: Acute (4) Pulmonary hypertension: Code(s): I27.20 - Pulmonary hypertension, unspecified Status: Acute (5) CAD (coronary artery disease): Qualifiers: Coronary Disease-Associated Artery/Lesion type: unspecified vessel or lesion type [place] vs. transplanted heart: unspecified whether [place] or transplanted heart Associated angina: unspecified whether angina present Qualified Code(s): I25.10 - Atherosclerotic heart disease of [place] coronary artery without angina pectoris Code(s): I25.10 - Atherosclerotic heart disease of [place] coronary artery without angina pectoris Status: Acute (6) Atrial fibrillation with rapid ventricular response: Code(s): I48.91 - Unspecified atrial fibrillation Status: Acute (7) Type 2 diabetes mellitus: Qualifiers: Diabetes mellitus manager intermediate insulin use: without alf use Diabetes mellitus complication status: without complication Qualified Code(s): E11.9 - Type 2 diabetes mellitus without complications Code(s): E11.9 - Type 2 diabetes mellitus without complications Status: Acute (8) Chronic kidney disease, stage 3b: Code(s): N18.32 - Chronic kidney disease, stage 3b Status: Acute (9) Acute exacerbation of chronic obstructive pulmonary disease: Code(s): J44.1 - Chronic obstructive pulmonary disease with (acute) exacerbation Status: Acute (10) Sleep apnea: Qualifiers: Sleep apnea type: unspecified type Qualified Code(s): G47.30 - Sleep apnea, unspecified Code(s): G47.30 - Sleep apnea, unspecified Status: Acute Subjective Date/time seen: 07/06/25 17:10 Interval history: Last night had increased cough requiring expectorant p.o.. Today's having abdominal cramping sometimes 10/10. Constipated since admission. More awake today. Eating only small amounts though. Review of Systems Review of Systems: All systems reviewed & are unremarkable except as noted in HPI and below Exam Narrative: HEENT: PERRL, sclerae nonicteric, pharyngeal mucosa pink and intact NECK: No JVD CHEST: Coarse BS, few crackles at bases HEART: NL S1/S2, irregular, no murmur ABDOMEN: BS+, soft, nontender, no mass, no bruits EXTREMITIES: No cyanosis, edema, or clubbing NEUROLOGIC: CN intact and symmetric to inspection MUSCULOSKELETAL: No deformity to visual inspection PSYCH: Alert. Oriented to person place and year but not to month Objective Data Vital Signs Vital Signs: Vital Signs - 24 hr 07/05/25 20:44 07/06/25 07:30 07/06/25 08:15 Temperature 97.6 F Pulse Rate 76 Respiratory Rate 12 Blood Pressure 172/57 H Pulse Oximetry 92 90 Oxygen Delivery Nasal Cannula Nasal Cannula Oxygen Flow Rate 4 2 07/06/25 15:04 Temperature 97.0 F L Pulse Rate 62 Respiratory Rate 10 L Blood Pressure 154/52 H Pulse Oximetry 95 Oxygen Delivery Oxygen Flow Rate Intake/Output Intake/Output: Intake & Output 07/03/25 07/04/25 07/05/25 07/06/25 23:59 23:59 23:59 23:59 Intake Total 674.5 263.4 720 38.7 Output Total 2150 1300 1150 Balance -1475.5 -1036.6 -430 38.7 Meds/Results Medications: Active Medications Generic Name Dose Route Start Last Admin Trade Name Freq PRN Reason Stop Dose Admin Acetaminophen 1,000 mg 07/01/25 23:57 07/02/25 13:09 Acetaminophen 500 Mg Tablet PO 1,000 mg Q6H PRN Administration Mild Pain (1-3) or Fever Artificial Tears 1 - 2 drop 07/01/25 16:40 Artificial Tears Ophth Soln 15 Ml Bottle EACH EYE Q12H PRN Dry Eye(s) Bisacodyl 10 mg 07/01/25 16:40 07/05/25 12:37 Bisacodyl 10 Mg Suppository RECTAL 10 mg DAILY PRN Administration Constipation Diazepam 5 mg 07/01/25 16:44 07/03/25 11:15 Diazepam Inj (*Crx) 10 Mg/2 Ml Syringe IV PUSH 5 mg Q4H PRN Administration RESTLESSNESS/ANXIETY Diazepam 5 mg 07/05/25 09:00 07/06/25 08:22 Diazepam (*Crx) 5 Mg Tablet PO 5 mg DAILY DAVID Administration Glycopyrrolate 0.1 mg 07/01/25 16:40 Glycopyrrolate Inj (*Sp) 0.2 Mg/Ml Vial IV PUSH Q4H PRN EXCESS secretions Guaifenesin 200 mg 07/05/25 18:11 07/05/25 18:42 Guaifenesin 200 Mg/10 Ml Udc PO 200 mg Q4H PRN Administration Cough Hydromorphone HCl 4 mg 07/05/25 07:59 07/06/25 11:27 Hydromorphone Hcl (*Crx) 4 Mg Tablet PO 4 mg Q4H PRN Administration Pain Rated 7-10 Methadone HCl 10 mg 07/05/25 08:00 07/06/25 08:18 Methadone Hcl (*Crx) 10 Mg Tablet PO 10 mg Q12H DAVID Administration Prochlorperazine Edisylate 10 mg 07/01/25 16:40 Prochlorperazine Edisylate 10 Mg/2 Ml Vial IV PUSH Q6H PRN Nausea And Vomiting Senna 17.2 mg 07/05/25 21:00 07/05/25 20:57 Sennosides 8.6 Mg Tablet PO 17.2 mg HS DAVID Administration
[2025-07-06] MEDS: SENNA/DOCUSATE SODIUM TABLET 2 TAB PO (17:55)
[2025-07-06] MEDS: BISACODYL 10 MG SUPPOSITORY RECTAL (17:55)
[2025-07-06] MEDS: SENNOSIDES 8.6 MG TABLET 17.2 MG PO (20:25)
[2025-07-06 22:00] VITALS: BP 154/56; PULSE 77; RESP 20; TEMP 36.1; O2SAT 96
[2025-07-07] MEDS: methADONE HCL (*CRX) 10 MG TABLET PO (08:18)
[2025-07-07] MEDS: diazePAM (*CRX) 5 MG TABLET PO (08:18)
--- NOTE | 2025-07-07 11:57 | P.DS_ITS ---
DS: Admitting Diagnosis Discharge Date 07/07/2025 Admitting Diagnosis Respiratory failure with uncontrolled dyspnea DS: Discharge Diagnosis Discharge Diagnosis (1) Hospice care: Code(s): Z51.5 - Encounter for palliative care Status: Acute Assessment and Plan: * Meet inpatient hospice criteria due to requiring continuous IV hydromorphone 0.25 milligrams/hour and schedule IV diazepam at 5 mg every 8 hours to control her dyspnea and restlessness * P.r.n. palliative regimen ordered * 07/01/2025 discussed care and prognosis with patient and family at bedside * 07/02/2025 required 3 prn medications today, 1 IV, 2 PO, unclear whether her symptoms are due to illness or hydromorphone side effect, discussed with patient daughters and will monitor * 07/03/2025 required prn diazepam and use of CPAP today due to dyspnea, anxiety, hydromorphone increased to 0.5 mg/hr, disposition issue due to daughter from [place] seeking temporary housing to have hospice services at home * 07/04/2025 declining with more hours of sleep and less p.o. intake, symptoms managed well, discussed backup option for discharge to patient's [id number] home locally, transition to p.o. meds in the a.m. of 07/05/2025 if stable enough to do so and consider discharge that afternoon if tolerated well * 07/05/2025 continues to eat little, but still with po intake, still communicates with family, comfortable, but hypothermic, RR 8, attempted transition to po meds, methadone 10 mg q 12 hr, hydromorphone 4 mg q 4 hr prn * 07/06/2025 required p.r.n. expectorant and hydromorphone 07/05, required laxatives p.o. and rectally for abdominal cramping that was severe 07/06, daughter is preparing newly purchased trailer for patient to be discharged 07/07 * 07/07/2025 pain resolved after BM, daughter has trailer ready for move-in, hospice equipment has been delivered, discharging to home with daughter (2) Acute respiratory failure with hypoxia and hypercarbia: Code(s): J96.01 - Acute respiratory failure with hypoxia; J96.02 - Acute respiratory failure with hypercapnia Status: Acute (3) CHF (congestive heart failure): Qualifiers: Heart failure chronicity: unspecified Heart failure type: unspecified Qualified Code(s): I50.9 - Heart failure, unspecified Code(s): I50.9 - Heart failure, unspecified Status: Acute (4) Pulmonary hypertension: Code(s): I27.20 - Pulmonary hypertension, unspecified Status: Acute (5) CAD (coronary artery disease): Qualifiers: Coronary Disease-Associated Artery/Lesion type: unspecified vessel or lesion type Elem vs. transplanted heart: unspecified whether [place] or tr ansplanted heart Associated angina: unspecified whether angina present Qualified Code(s): I25.10 - Atherosclerotic heart disease of [place] coronary artery without angina pectoris Code(s): I25.10 - Atherosclerotic heart disease of [place] coronary artery without angina pectoris Status: Acute (6) Atrial fibrillation with rapid ventricular response: Code(s): I48.91 - Unspecified atrial fibrillation Status: Acute (7) Type 2 diabetes mellitus: Qualifiers: Diabetes mellitus exterminator helper termite insulin use: without longterm use Diabetes mellitus complication status: without complication Qualified Code(s): E11.9 - Type 2 diabetes mellitus without complications Code(s): E11.9 - Type 2 diabetes mellitus without complications Status: Acute (8) Chronic kidney disease, stage 3b: Code(s): N18.32 - Chronic kidney disease, stage 3b Status: Acute (9) Acute exacerbation of chronic obstructive pulmonary disease: Code(s): J44.1 - Chronic obstructive pulmonary disease with (acute) exacerbation Status: Acute (10) Sleep apnea: Qualifiers: Sleep apnea type: unspecified type Qualified Code(s): G47.30 - Sleep apnea, unspecified Code(s): G47.30 - Sleep apnea, unspecified Status: Acute DS: Summary Hospital Course Hospital Course: Admitted with uncontrolled dyspnea due to respiratory failure. Medications were titrated to comfort. After symptoms were stable, she remained intermittently alert and continued to eat and drink enough to sustain herself. She remained bedbound. After discussion with patient and daughter, it was decided that Mrs. Littlejohn would discharge to a trailer that her daughter purchased for that purpose. Her daughter would live there with Mrs. Littlejohn. Dyspnea and cough symptoms were controlled. Abdominal discomfort resolved after her bowels moved prior to discharge. Time Spent with Patient Time attestation: Total time spent providing and/or coordinating discharge services: Exam Narrative: She was alert and oriented on the day of discharge. Discharge Plan Discharge Discharging Clinician: Yaakov Moy Patient Disposition: Hospice - Home Activity: no straining, no driving and as tolerated Diet: as tolerated Patient Language: Micronesian Stand Alone Forms: General Discharge Information Discharge Medications: New sennosides [Senokot] 8.6 mg Tablet 17.2 mg PO HS Qty: 10 0RF methadone 10 mg Tablet 10 mg PO Q12H Qty: 10 0RF acetaminophen 500 mg Tablet 1,000 mg PO Q6H PRN (Reason: Mild Pain (1-3) Or Fever) Qty: 12 0RF bisacodyl 10 mg Suppository 10 mg RECTAL DAILY PRN (Reason: Constipation) Qty: 5 0RF hydromorphone 4 mg Tablet 4 mg PO Q4H PRN (Reason: Pain Rated 7-10) Qty: 12 0RF diazepam 5 mg Tablet 5 mg PO DAILY Qty: 5 0RF Artificial Tears([id number]) 1-0.2-0.2 % Drops 1 - 2 drp EACH EYE Q12H PRN (Reason: Dry Eye(S)) Qty: 3 0RF prochlorperazine maleate [Compazine] 10 mg tablet 10 mg PO Q6H PRN (Reason: nausea and vomiting) Qty: 5 0RF diazepam [Valium] 5 mg tablet 5 mg PO Q4H PRN (Reason: anxiety) Qty: 5 0RF Continued levothyroxine 100 mcg tablet See Rx Instructions .ROUTE .COMPLEX Qty: 90 1RF Dose Instruction: TAKE 1 TABLET BY MOUTH DAILY Rx Instructions: TAKE 1 TABLET BY MOUTH DAILY albuterol sulfate 90 mcg/actuation HFA aerosol inhaler See Rx Instructions .ROUTE .COMPLEX Qty: 42.5 0RF Dose Instruction: INHALE 2 PUFFS BY MOUTH EVERY 4 TO 6 HOURS NEEDED FOR SHORTNESS OF BREATH OR WHEEZING Rx Instructions: INHALE 2 PUFFS BY MOUTH EVERY 4 TO 6 HOURS NEEDED FOR SHORTNESS OF BREATH OR WHEEZING Discontinued dapagliflozin propanediol [Farxiga] 10 mg tablet 10 mg PO DAILY aspirin [Adult Low Dose Aspirin] 81 mg tablet,delayed release (DR/EC) 81 mg PO DAILY losartan 100 mg tablet 100 mg PO DAILY Qty: 30 5RF hydrochlorothiazide 12.5 mg tablet See Rx Instructions .ROUTE .COMPLEX Qty: 180 1RF Dose Instruction: TAKE 2 TABLETS BY MOUTH EVERY DAY Rx Instructions: TAKE 2 TABLETS BY MOUTH EVERY DAY fluticasone propionate [Flonase Allergy Relief] 50 mcg/actuation spray,suspension 1 spray intranasal Q12H Qty: 48 1RF Rx Instructions: administer into each nostril isosorbide mononitrate 60 mg tablet extended release 24 hr See Rx Instructions .ROUTE .COMPLEX Qty: 90 1RF Dose Instruction: TAKE 1 TABLET BY MOUTH DAILY Rx Instructions: TAKE 1 TABLET BY MOUTH DAILY atorvastatin 80 mg tablet See Rx Instructions .ROUTE .COMPLEX Qty: 90 1RF Dose Instruction: TAKE 1 TABLET BY MOUTH DAILY Rx Instructions: TAKE 1 TABLET BY MOUTH DAILY amlodipine 10 mg tablet See Rx Instructions .ROUTE .COMPLEX Qty: 90 1RF Dose Instruction: TAKE 1 TABLET(10 MG) BY MOUTH DAILY Rx Instructions: TAKE 1 TABLET(10 MG) BY MOUTH DAILY allopurinol 100 mg tablet 100 mg PO TID Qty: 270 1RF hydralazine 50 mg tablet 50 mg PO TID Qty: 270 2RF metformin 1,000 mg tablet 1,000 mg PO DAILY Qty: 90 1RF Trelegy Ellipta 100-62.5-25 mcg blister with device 1 inh inhalation Q24H Qty: 60 2RF Date of admission: 07/01/25 15:52 Primary Care Provider: Everett Birch Admitting Provider: Yaakov Moy Attending physician on admission: Yaakov Moy Condition: Terminal
[2025-07-07] MEDS: HYDROmorphone HCL (*CRX) 4 MG TABLET PO (13:28)
== END 2025-07-07 14:20 | disposition hospice, home (50) | DRG 951 ==
PROVIDERS: Admitting Provider Internal Medicine; PCP Internal Medicine; Visit Provider Internal Medicine
DX: Z51.5 Encounter for palliative care (principal); J96.01 Acute respiratory failure with hypoxia; J96.02 Acute respiratory failure with hypercapnia; J44.1 Chronic obstructive pulmonary disease with (acute) exacerbation; I13.0 Hypertensive heart and chronic kidney disease with heart failure and stage 1 through stage 4 chronic kidney disease, or unspecified chronic kidney disease; I50.9 Heart failure, unspecified; E11.22 Type 2 diabetes mellitus with diabetic chronic kidney disease; E03.9 Hypothyroidism, unspecified; E78.5 Hyperlipidemia, unspecified; G47.30 Sleep apnea, unspecified; I27.20 Pulmonary hypertension, unspecified; I25.10 Atherosclerotic heart disease of native coronary artery without angina pectoris; I48.91 Unspecified atrial fibrillation; K59.00 Constipation, unspecified; M19.90 Unspecified osteoarthritis, unspecified site; M10.9 Gout, unspecified; N18.32 Chronic kidney disease, stage 3b; Z74.01 Bed confinement status; Z87.891 Personal history of nicotine dependence; Z66 Do not resuscitate; Z79.82 Long term (current) use of aspirin
CPT/HCPCS: 82948; A9270; J1171; J3360